=== PATIENT | male | born 1945 | race Caucasian/White ===

== ENCOUNTER 2023-09-05 08:41 | Outpatient (OUT) | payer MEDICARE, SELFPAY ==
[2023-09-05 09:12] LABS: Basophils Absolute Auto 0.1 10^3/uL (0.0-0.1); Basophils Percent Auto 0.7 % (0.2-2.0); Eosinophils Absolute Auto 0.2 10^3/uL (0.0-0.7); Eosinophils Percent Auto 2.2 % (0.9-7.0); Hematocrit 39.7 % (42.0-54.0); Hemoglobin 13.1 g/dL (14.0-18.0); Immature Granulocytes Abs Auto 0.01 10^3/uL (0.00-0.03); Immature Granulocytes Pct Auto 0.1 % (0.0-0.5); Lymphocytes Absolute Auto 2.5 10^3/uL (1.2-3.8); Mean Corpuscular Hemoglobin 31.6 pg (25.9-34.0); Mean Corpuscular Volume 95.9 fL (80.0-94.0); Monocytes Absolute Auto 0.6 10^3/uL (0.3-0.8); Monocytes Percent Auto 8.2 % (1.7-12.0); Neutrophils Absolute Auto 3.7 10^3/uL (1.4-6.5); Neutrophils Percent Auto 52.8 % (43.0-75.0); Platelet Count 177 10^3/uL (150-450); Red Blood Count 4.14 10^6/uL (4.70-6.10); Red Cell Distribution Width 13.3 % (11.0-15.0); White Blood Count 6.9 10^3/uL (4.0-11.0)
[2023-09-05 09:45] LABS: Percent Iron Saturation 24.2 %
[2023-09-05 09:47] LABS: Alanine Aminotransferase 22 U/L (16-63); Albumin Globulin Ratio 1.2; Albumin Level 3.5 g/dL (3.4-5.0); Alkaline Phosphatase 71 U/L (46-116); Anion Gap 11.4; Aspartate Amino Transferase 16 U/L (15-37); BUN Creatinine Ratio 13.5; Bilirubin Direct 0.1 mg/dL (0.0-0.2); Bilirubin Total 0.7 mg/dL (0.2-1.0); Calcium 8.8 mg/dL (8.5-10.1); Carbon Dioxide 29.2 mmol/L (21.0-32.0); Chloride 106 mmol/L (98-107); Chol HDL Ratio 2.3; Cholesterol 114 mg/dL (<=200); Estimated GFR (African America 47 (>=60); Estimated GFR (Non-African Ame 39 (>=60); Glucose 95 mg/dL (74-106); HDL Cholesterol 49 mg/dL (40-60); Potassium 3.6 mmol/L (3.5-5.1); Sodium 143 mmol/L (136-145); Total Protein 6.5 g/dL (6.4-8.2); Triglycerides 85 mg/dL (<=150)
[2023-09-05 11:47] LABS: Estimated Average Glucose 137 mg/dL; Glycohemoglobin A1C 6.4 % (4.5-6.2)
[2024-01-01 14:15] LABS: Reticulocyte Count 1.69 % (0.60-3.10)
== END 2023-09-05 08:42 | disposition home or self-care (01) ==
LOC: LAB 08:45
PROVIDERS: PCP Family Medicine; Visit Provider Family Medicine
DX: Z79.899 Other long term (current) drug therapy (principal); E78.2 Mixed hyperlipidemia; E11.9 Type 2 diabetes mellitus without complications; D53.9 Nutritional anemia, unspecified
CPT/HCPCS: 36415; 80048; 80061; 80076; 82728; 83036; 83540; 83550; 85025; 85045

== ENCOUNTER 2024-02-29 09:17 | Outpatient (OUT) | payer MEDICARE, SELFPAY ==
[2024-02-29 09:52] LABS: Basophils Percent Auto 0.2 % (0.2-2.0); Eosinophils Absolute Auto 0.1 10^3/uL (0.0-0.7); Eosinophils Percent Auto 1.2 % (0.9-7.0); Hematocrit 40.6 % (42.0-54.0); Immature Granulocytes Abs Auto 0.02 10^3/uL (0.00-0.03); Immature Granulocytes Pct Auto 0.2 % (0.0-0.5); Lymphocytes Absolute Auto 1.7 10^3/uL (1.2-3.8); Lymphocytes Percent Auto 20.1 % (20.5-60.0); Mean Corpuscular Hemoglobin 31.2 pg (25.9-34.0); Mean Corpuscular Volume 97.4 fL (80.0-94.0); Mean Platelet Volume 10.3 fL (9.5-13.5); Monocytes Absolute Auto 0.7 10^3/uL (0.3-0.8); Monocytes Percent Auto 7.8 % (1.7-12.0); Neutrophils Percent Auto 70.5 % (43.0-75.0); Platelet Count 167 10^3/uL (150-450); Red Blood Count 4.17 10^6/uL (4.70-6.10); Red Cell Distribution Width 13.4 % (11.0-15.0); White Blood Count 8.6 10^3/uL (4.0-11.0)
[2024-02-29 10:21] LABS: Estimated Average Glucose 146 mg/dL; Glycohemoglobin A1C 6.7 % (4.5-6.2)
[2024-02-29 10:46] LABS: Alanine Aminotransferase 28 U/L (16-63); Albumin Level 3.1 g/dL (3.4-5.0); Alkaline Phosphatase 87 U/L (46-116); Anion Gap 11.7; Aspartate Amino Transferase 20 U/L (15-37); BUN Creatinine Ratio 12.3; Bilirubin Direct 0.1 mg/dL (0.0-0.2); Bilirubin Total 0.7 mg/dL (0.2-1.0); Calcium 9.2 mg/dL (8.5-10.1); Carbon Dioxide 29.5 mmol/L (21.0-32.0); Chloride 105 mmol/L (98-107); Chol HDL Ratio 2.4; Cholesterol 136 mg/dL (<=200); Estimated GFR (African America 50 (>=60); Estimated GFR (Non-African Ame 41 (>=60); Globulin 3.2 g/dL; Glucose 96 mg/dL (74-106); HDL Cholesterol 57 mg/dL (40-60); Potassium 4.2 mmol/L (3.5-5.1); Sodium 142 mmol/L (136-145); Thyroid Stimulating Hormone 3.785 uIU/mL (0.358-3.740); Total Protein 6.3 g/dL (6.4-8.2); Triglycerides 120 mg/dL (<=150)
== END 2024-02-29 09:18 | disposition home or self-care (01) ==
LOC: LAB 09:18
PROVIDERS: PCP Family Medicine; Visit Provider Family Medicine
DX: R68.89 Other general symptoms and signs (principal); F51.04 Psychophysiologic insomnia; D50.8 Other iron deficiency anemias; E78.2 Mixed hyperlipidemia; E11.9 Type 2 diabetes mellitus without complications
CPT/HCPCS: 36415; 80048; 80061; 80076; 82607; 82728; 83036; 83540; 84436; 84443; 85025

== ENCOUNTER 2024-03-26 08:01 | Outpatient (OUT) | payer MEDICARE, SELFPAY ==
--- OUTSIDE RECORDS SUMMARY | 2024-03-26 08:17 | XMS_ITS | CCD ---
Author Organization [facility] Care Team Providers Care Ship Steward Name Role Phone Oberer, Hayden L Unavailable Unavailable Unavailable Oberer, Hayden Unavailable Crescencio Mendez Unavailable Jacob Marrero Unavailable [phone] Julita Owen Unavailable Unavailable Oberer, Hayden Joey Primary Care Unavailable MIGUEL A Ortiz Attending Unavailable MIGUEL A Ortiz Referring Unavailable Oberer, Hayden Joey Primary Care Unavailable Rogerio, Dr. Bud Jacobson Attending Unava ilable Rogerio, Dr. Bud Jacobson Referring Unava ilable Oberer, Hayden Joey Primary Care Unavailable Dr. Bud Carlin Attending Unava leanna Carlin, Dr. Bud Jacobson Referring Unava ilable KAREN Jacinto, Dr. ОЛЬГА GUERRERO Attending Un available Oberer, Hayden Joey Primary Care Unavailable KAREN Jacinto, Dr. ОЛЬГА GUERRERO Attending Un available Oberer, Hayden Joey Primary Care Unavailable Mazin Sanford Referring Unavailab le Oberer, Hayden Joey Primary Care Unavailable KAREN Jacinto, Dr. ОЛЬГА GUERRERO Attending Un available Oberer, Hayden Joey Primary Care Unavailable Dr. ОЛЬГА BROWN Jr Attending Un available Dr. Desire Murcia Attending Unavailable KAREN Jacinto, Dr. ОЛЬГА GUERRERO Referring Un available Oberer, Hayden Joey Primary Care Unavailable KAREN Jacinto, Dr. ОЛЬГА GUERRERO Referring Un available Oberer, Hayden Joey Primary Care Unavailable KAREN Jacinto, Dr. ОЛЬГА GUERRERO Attending Un available Oberer, Hayden Joey Primary Care Unavailable Rogerio, Dr. Bud Jacobson Attending Unava ilable Rogerio, Dr. Bud Jacobson Referring Unava ilable Oberer, Hayden Joey Primary Care Unavailable MIGUEL A Ortiz Attending Unavailable Angel, MIGUEL A Vigil Referring Unavailable ObererHayden Primary Care Unavailable Angel, MIGUEL A Vigil Attending Unavailable Ortiz, MIGUEL A Vigil Referring Unavailable Oberer, Dr. Hayden Cook Primary Care Unavailable Ольга Brown Attending Unavailable Oberer, Dr. Hayden Cook Primary Care Unavailable Ольга Brown Attending Unavailable Oberer, Dr. Hayden Cook Primary Care Unavailable Ольга Brown Admitting Unavailable Ольга Brown Attending Unavailable Ольга Brown Referring Unavailable OBERER, DR BLAKE Primary Care Unavailable OBERER, DR BLAKE Admitting Unavailable OBERER, DR BLAKE Attending Unavailable OBERER, DR BLAKE Consulting Unavailable OBERER, DR BLAKE Primary Care Unavailable OBERER, DR BLAKE Admitting Unavailable OBERER, DR BLAKE Attending Unavailable OBERER, DR BLAKE Consulting Unavailable Oberer DOHayden Primary Care Provider BUD CARLIN Referring Unavailable OBERERHAYDEN Primary Care Unavailable BUD CARLIN Referring Unavailable OBERERHAYDEN Primary Care Unavailable BUD CARLIN Attending Unavailable OBERERHAYDEN Primary Care Unavailable BUD CARLIN Referring Unavailable OBERERHAYDEN Primary Care Unavailable Ольга Barros Attending Provider [phone] Allergies Allergy Classification Reported Allergen(s) Allergy Type Date of Onset Reaction(s) Facility (20 sources) amLODIPine Drug Allergy peripheral edema [facility] Other (20 sources) Metoprolol Drug Allergy ED [facility] Other (1 source) No Alert Propensity to adverse reactions to drug 2 [facility] Medications Current Medications Medication Drug Class(es) Dates Sig (Normalized) Sig (Original) allopurinol 300 mg oral tablet (20 sources) Xanthine Oxidase Inhibitor Start: 05-06-2019 End: 01-17-2024 take 300 mg by mouth once daily Allopurinol Active 300 MG PO Daily January 17, 2024 3:05pm aspirin 81 mg oral tablet (20 sources) Platelet Aggregation Inhibitor, Nonsteroidal Anti-inflammatory Drug Start: 06-21-2019 take 81 mg by mouth once daily in the evening Aspirin Active 81 MG PO Daily June 21, 2019 12:00am takes in PM take 1 tablet by mouth once danita y aspirin 81 mg EC tablet Take 1 tablet (81 mg) by mouth once daily. 0 Active Calcium & Magnesium Carbonates (8 sources) Calcium & Magnes ium Carbonates Active carvedilol 12.5 mg oral tablet (20 sources) alpha-Adrenergic Kyle, beta-Adrenergic Kyle Start: End: 4 take 1 tablet by mouth twice daily carvedilol (Coreg) 12.5 mg tablet Indications: Atherosclerosis of coronary artery of [place] heart without angina pectoris, unspecified vessel or lesion type , Ischemic cardiomyopathy Take 1 tablet (12.5 mg) by mouth 2 times a day. 180 tablet 3 10/12/2023 10/11/2024 Active Start: 07-09-2021 take 0.5 tablet by m outh twice daily Carvedilol 12.5 MG Oral Tablet TAKE 1/2 TABLET TWICE DAILY. Quantity: 30 Refills: 0 Ordered: 22-Dec-2021 Yaritza Huertas Start : 09-Jul-2021 Active Start: 06-25-2019 take 1 tablet by chaitanya twice daily at mealtime Carvedilol (Coreg) 25 mg tablet Active 25 MG PO Twice daily 60 June 25, 2019 12:00am must administer with a meal/food Co Q 10 (20 sources) Co Q 10 Active colchicine 0.6 mg oral tablet (11 sources) Start: 10-25-2021 take 1 tablet by mouth once daily as needed colchicine 0.6 mg tablet Take 1 tablet (0.6 mg) by mouth once daily. As needed for gout flare 0 10/25/2021 Active Start: 10-25-2021 Colchicine 0.6 MG Oral Tablet Quantity: 3 Refills: 0 Ordered: 25-Oct-2021 DO Start : 25-Oct-2021 Active Start: 10-25-2021 Colcrys 0.6 MG 2 tablets initially and 1 tablet in 1 hour Orally for 30 day(s) Oct, Active ferrous sulfate 325 mg oral tablet (16 sources) Start: 01-26-2024 take 325 mg by mouth once daily Ferrous Sulfate Active 325 MG PO Daily 90 90 January 26, 2024 12:00am Start: 03-14-2023 take 1 tablet by chaitanya th once daily at mealtime Ferrous Sulfate 325 (65 Fe) MG 1 tablet Orally Daily with food for 90 days March, Active Start: 03-14-2023 take 1 tablet by chaitanya th once daily at mealtime Ferrous Sulfate 325 (65 Fe) MG 1 tablet Orally Daily with food for 90 days March, Active 24 hr isosorbide mononitrate 30 mg extended release oral tablet (20 sources) Nitrate Vasodilator Start: 06-25-2019 End: 10-11-2024 take 30 mg by mouth once daily Isosorbide Mononitrate Active 30 MG PO Daily June 25, 2019 12:00am Isosorbide [place] itrate Active 200 actuat levalbuterol 0.045 mg/actuat metered dose inhaler (20 sources) beta2-Adrenergic Agonist Start: 09-20-2021 take 1-2 puff(s) by inhalation every six hours levalbuterol (Xopenex) 45 mcg/actuation inhaler Inhale 1-2 puffs every 6 hours if needed. 0 09/20/2021 Active Start: 09-20-2021 Levalbuterol T artrate 45 MCG/ACT Inhalation Aerosol As directed. Quantity: 0 Refills: 0 Ordered: 20-Sep-2021 DO Start : 20-Sep-2021 Active Start: 06-25-2019 take 1 puff(s) by in halation every four to six hours Levalbuterol Tartrate (Xopenex Hfa) 45 mcg/actuation Hfa Aerosol Inhaler Active 1 PUFF INHALATION EVERY 4-6 HOURS June 25, 2019 12:00am take 1 puff(s) by in halation every four hours as needed Xopenex HFA 45 MCG/ACT 1 puff as needed Inhalation every 4 hrs for 30 days PRN Active loperamide hydrochloride 2 mg oral capsule (20 sources) Opioid Agonist Start: 09-22-2021 take 1 capsule by mouth once daily loperamide (Imodium) 2 mg capsule Take 1 capsule (2 mg) by mouth once daily. 0 09/22/2021 Active Start: 09-20-2021 take 1 tablet by chaitanya th once daily Loperamide A-D 2 MG 1 tab(s) Orally qd for 90 day(s) Sep, Not-Taking nitroglycerin 0.4 mg sublingual tablet (20 sources) Nitrate Vasodilator Start: 06-25-2019 Nitroglyce rin (Nitrostat) 0.4 mg Tablet, Sublingual Active 0.4 MG SUBLINGUAL every 5 to 15 minutes June 25, 2019 12:00am Nitrostat 0.4 MG 1 tab as directed Sublingual prn chest pain for 90 days Active pravastatin sodium 80 mg oral tablet (20 sources) HMG-CoA Reductase Inhibitor Start: 05-06-2019 take 80 mg by mouth once daily Pravastatin Active 80 MG PO Daily May 06, 2019 12:00am sacubitril 49 mg / valsartan 51 mg oral tablet (20 sources) Angiotensin 2 Receptor Kyle Start: 03-15-2024 take 1 tablet by mouth twice daily Sacubitril-Valsart an (Entresto) 49-51 mg tablet Active 1 TAB PO Twice daily March 15, 2024 12:00am Start: 12-08-2021 End: 12-20-2023 take 1 tablet by mouth twice daily sacubitriL-valsartan (Entresto) 49-51 mg tablet Indications: Ischemic cardiomyopathy , CHF (NYHA class II, ACC/AHA stage C) ([facility]) Take 1 tablet by mouth 2 times a day. 180 tablet 3 10/12/2023 12/20/2023 Discontinued (Dose adjustment) Start: 04-07-2020 End: 12-19-2024 take 1 tablet by mouth twice daily Sacubitril-Valsartan Discontinued 1 TAB PO Twice daily April 07, 2020 12:00am March 15, 2024 1:39pm ubidecarenone 10 mg oral cap elizabeth (2 sources) Start: 04-07-2020 Coenzyme Q10 ( Co Q-10) 10 mg Capsule Active 10 MG PO Once April 07, 2020 12:00am Completed/Discontinued Medications Medication Drug Class(es) Dates Sig (Normalized) Sig (Original) azithromycin 500 mg oral tablet (1 source) Macrolide Antimicrobial Start: 02-13-2024 End: 03-15-2024 take 1 mg by mouth once daily Azithromycin (Zithromax Tri-Jacinto) 500 mg tablet Discontinued 0 PO daily February 13, 2024 12:00am March 15, 2024 1:35pm For 500 mg dose pack: take 500 mg once daily for 3 days orally daily; clopidogrel 75 mg oral tablet (2 sources) [id number] Platelet Inhibitor Start: 05-06-2019 End: 02-13-2024 take 75 mg by mouth once daily Clopidogrel Discontinued 75 MG PO Daily May 06, 2019 12:00am February 13, 2024 2:14pm fluticasone propionate 0.05 mg/actuat metered dose nasal spray (20 sources) Corticosteroid Start: 03-15-2022 Fluticasone Propionate 50 MCG/ACT Nasal Suspension Quantity: 16 Refills: 0 Ordered: 15-Mar-2022 DO Start : 15-Mar-2022 Active take 2 spray(s) nasal route once daily fluticasone (Flonase) 50 mcg/actuation nasal spray Administer 2 sprays into each nostril once daily. 0 Active take 2 spray(s) nasal route twic e daily Fluticasone Propionate 50 MCG/ACT INHALE 2 (TWO) sprays IN EACH NOSTRIL Nasal Twice a day Active take 2 spray(s) nasal route twic e daily Fluticasone Propionate 50 MCG/ACT INHALE 2 (TWO) sprays IN EACH NOSTRIL Nasal Twice a day Active Fluticasone Prop ionate 50 MCG/ACT INHALE 2 (TWO) sprays IN EACH NOSTRIL ONCE DAILY Nasal Twice a day for 30 Days Active methylPREDNISolone (16 sources) Corticosteroid Start: 07-29-2019 SOLU-MEDROL UP TO 40 mg Jul, 80 mg predniSONE 20 mg oral tablet (1 source) Start: 02-13-2024 End: 03-15-2024 Prednisone Discontinued 0 PO daily February 13, 2024 12:00am March 15, 2024 1:36pm 1 p.o. 3 times daily x 3 days, then twice daily until gone spironolactone 25 mg oral tablet (2 sources) Aldosterone Antagonist Start: 04-07-2020 End: 02-13-2024 take 12.5 mg by mouth once daily Spironolactone Discontinued 12.5 MG PO Daily April 07, 2020 12:00am February 13, 2024 2:17pm sulfamethoxazole 800 mg / trimethoprim 160 mg oral tablet (3 sources) Dihydrofolate Reductase Inhibitor Antibacterial, Sulfonamide Antimicrobial Start: 07-12-2022 End: 07-19-2022 take 1 tablet by mouth twice daily Sulfamethoxazole-T rimethoprim 800-160 MG Oral Tablet Take 1 tablet twice daily Quantity: 14 Refills: 0 Ordered: 12-Jul-2022 Ольга Brown MD Start : 12-Jul-2022 End : 19-Jul-2022 Complete [id number] RBCs (Ultratag) injection 25 millicurie (2 sources) Start: 01-09-2024 End: 01-09-2024 [id number] RBCs (Ultratag) injection 25 millicurie valsartan 160 mg oral tablet (4 sources) Angiotensin 2 Receptor Kyle Start: 05-06-2019 End: 04-07-2020 take 160 mg by mouth once daily in the evening Valsartan Discontinued 160 MG PO Every evening June 21, 2019 12:00am April 07, 2020 3:30pm 24 hr verapamil hydrochloride 240 mg extended release oral capsule (4 sources) Calcium Channel Kyle Start: 05-06-2019 End: 06-25-2019 Verapamil Discontinued June 21, 2019 12:00am June 21, 2019 9:43am Problems Active Problems Problem Classification Problem Date Documented Da te Episodic/Chronic Abdominal hernia (20 sources) Hernia of anterior abdominal wall; Translations: [Ventral hernia without obstruction or gangrene] Onset: 2 Resolved: 2 Episodic Abdominal pain (13 sources) Abdominal pain; Translations: [Unspecified abdominal pain] Episodic Acquired foot deformities (13 sources) Talipes planus; Translations: [Flat foot [pes planus] (acquired), right foot] Episodic Acquired foot deformities (13 sources) Acquired pes planus of left foot; Translations: [Flat foot [pes planus] (acquired), left foot] Episodic Acute bronchitis (1 source) Acute bronchitis, unspecified; Translations: [Acute bronchitis] 02-13-2024 Episodic Administrative/social admission (2 sources) Other specified counseling Onset: 1 Resolved: 1 Episodic Asthma (20 sources) Asthma; Translations: [Unspecified asthma, uncomplicated] Onset: 1 Resolved: 2 Chronic Cardiac dysrhythmias (13 sources) Cardiac arrhythmia; Translations: [Cardiac arrhythmia, unspecified] Chronic Cardiac dysrhythmias (20 sources) Bradycardia; Translations: [Other specified cardiac dysrhythmias] Onset: 2 12-20-2023 Episodic Chronic obstructive pulmonary disease and bronchiectasis (20 sources) Chronic obstructive lung disease; Translations: [Chronic airway obstruction, not elsewhere classified] Onset: 2 10-11-2023 Chronic Conduction disorders (1 source) Atrioventricular block, first degree; Translations: [Atrioventricular block, first degree] Onset: 2 Chronic Congestive heart failure; nonhypertensive (20 sources) Congestive heart failure stage C; Translations: [Congestive heart failure, unspecified] Onset: 2 12-20-2023 Chronic Coronary atherosclerosis and other heart disease (20 sources) Coronary atherosclerosis; Translations: [Coronary atherosclerosis of [place] coronary artery] Onset: 1 Resolved: 2 Chronic Coronary atherosclerosis and other heart disease (5 sources) Presence of aortocoronary bypass graft; Translations: [Coronary angioplasty status] Onset: 2 Episodic Deficiency and other anemia (4 sources) Nutritional anemia, unspecified; Translations: [NUTRITIONAL ANEMIA UNSPECIFIED] Onset: 2 Resolved: 2 Episodic Deficiency and other anemia (16 sources) Macrocytic anemia; Translations: [Nutritional anemia, unspecified] 01-17-2024 Episodic Diabetes mellitus without complication (19 sources) Type 2 diabetes mellitus without complication; Translations: [Type 2 diabetes mellitus without complications] Onset: 3 Chronic Diabetes mellitus without complication (20 sources) Impaired fasting glycemia; Translations: [Impaired fasting glucose] Onset: 1 Resolved: 2 Episodic Disorders of lipid metabolism (20 sources) Hyperlipidemia; Translations: [Other and unspecified hyperlipidemia] Onset: 1 Resolved: 2 Chronic Esophageal disorders (20 sources) Acid reflux; Translations: [Gastro-esophageal reflux disease without esophagitis] Onset: 1 Resolved: 2 Chronic Essential hypertension (20 sources) Essential hypertension; Translations: [Unspecified essential hypertension] Onset: 1 Resolved: 2 Chronic Gout and other crystal arthropathies (20 sources) Gout; Translations: [Gout, unspecified] Onset: 1 Resolved: 2 Chronic Hypertension with complications and secondary hypertension (1 source) Hypertensive heart disease with heart failure; Translations: [Hypertensive heart disease with heart failure] Onset: 2 Chronic Melanomas of skin (20 sources) Malignant melanoma of back; Translations: [Malignant melanoma of skin of trunk, except scrotum] Onset: 2 Chronic Miscellaneous mental health disorders (1 source) Psychophysiologic insomnia; Translations: [Insomnia, unspecified] 02-13-2024 Chronic Noninfectious gastroenteritis (2 sources) Microscopic colitis; Translations: [Microscopic colitis, unspecified] 01-17-2024 Chronic Noninfectious gastroenteritis (20 sources) Microscopic colitis; Translations: [Other specified noninfective gastroenteritis and colitis] Onset: 1 Resolved: 1 Episodic Nutritional deficiencies (6 sources) Iron deficiency; Translations: [Iron deficiency anemia, unspecified] Episodic Osteoarthritis (20 sources) Osteoarthritis of hip; Translations: [Osteoarthritis of hip, unspecified] Onset: 1 Resolved: 2 Chronic Other aftercare (20 sources) Long-term current use of drug therapy; Translations: [Other correction (current) drug therapy] Episodic Other aftercare (6 sources) Other correction (current) drug therapy; Translations: [Other correction (current) drug therapy] Onset: 1 Resolved: 2 Episodic Other aftercare (2 sources) Patient encounter status; Translations: [Other correction (current) drug therapy] 01-17-2024 Episodic Other and unspecified benign neoplasm (20 sources) History of polyp of colon; Translations: [Personal history of colonic polyps] Episodic Other and unspecified benign neoplasm (2 sources) Personal history of colonic polyps Episodic Other circulatory disease (2 sources) Peripheral vascular angioplasty status; Translations: [Peripheral vascular angioplasty status] Onset: 3 Episodic Other connective tissue disease (13 sources) Calcaneal spur; Translations: [Calcaneal spur, left foot] Episodic Other diseases of kidney and ureters (20 sources) Renal impairment; Translations: [Unspecified disorder of kidney and ureter] Onset: 3 10-11-2023 Episodic Other diseases of kidney and ureters (20 sources) Renal insufficiency; Translations: [Disorder of kidney and ureter, unspecified] Episodic Other diseases of kidney and ureters (8 sources) Disorder of kidney and ureter, unspecified; Translations: [DISORDER KIDNEY AND URETER UNS] Onset: 1 Resolved: 2 Episodic Other ear and sense organ disorders (20 sources) Presbycusis; Translations: [Presbycusis, bilateral] 01-17-2024 Episodic Other ear and sense organ disorders (3 sources) Presbycusis, bilateral Onset: 2 Resolved: 2 Episodic Other gastrointestinal disorders (13 sources) Dysphagia; Translations: [Dysphagia, unspecified] Episodic Other gastrointestinal disorders (20 sources) Diarrhea; Translations: [Diarrhea, unspecified] Episodic Other gastrointestinal disorders (13 sources) Swollen abdomen; Translations: [Abdominal distension (gaseous)] Episodic Other gastrointestinal disorders (3 sources) Diarrhea, unspecified Onset: 1 Resolved: 1 Episodic Other lower respiratory disease (20 sources) Chronic cough; Translations: [Cough] 01-17-2024 Episodic Other lower respiratory disease (5 sources) Cough Onset: 1 Resolved: 2 Episodic Other nervous system disorders (20 sources) Polyneuropathy; Translations: [Polyneuropathy, unspecified] 01-17-2024 Chronic Other nervous system disorders (13 sources) Carpal tunnel syndrome of right wrist; Translations: [Carpal tunnel syndrome, right upper limb] Chronic Other nervous system disorders (3 sources) Polyneuropathy, unspecified; Translations: [Unspecified hereditary and idiopathic peripheral neuropathy] Chronic Other nutritional; endocrine; and metabolic disorders (1 source) Obesity, unspecified; Translations: [Obesity, unspecified] Onset: 2 Chronic Other nutritional; endocrine; and metabolic disorders (1 source) Body mass index (BMI) 34.0-34.9, adult; Translations: [Body mass index [BMI] 34.0-34.9, adult] Onset: 2 Chronic Other nutritional; endocrine; and metabolic disorders (14 sources) Overweight in adulthood with body mass index of 25 or more but less than 30; Translations: [Overweight] Episodic Other upper respiratory disease (20 sources) Allergic rhinitis; Translations: [Allergic rhinitis, unspecified] 01-17-2024 Chronic Other upper respiratory disease (5 sources) Allergic rhinitis, unspecified Onset: 2 Resolved: 2 Chronic Other upper respiratory infections (1 source) Chronic sinusitis, unspecified; Translations: [Unspecified sinusitis (chronic)] 02-13-2024 Chronic Peripheral and visceral atherosclerosis (19 sources) Intermittent claudication; Translations: [Peripheral vascular disease, unspecified] Onset: 3 10-11-2023 Chronic Residual codes; unclassified (1 source) No current problems or disability; Translations: [Other specified conditions influencing health status] Onset: 2 Episodic Residual codes; unclassified (1 source) Other general symptoms and signs; Translations: [Other general symptoms] 02-13-2024 Episodic Screening and history of mental health and substance abuse codes (20 sources) Ex-smoker; Translations: [Personal history of tobacco use] Onset: 2 12-20-2023 Episodic Comment on above: QUIT IN THE S; Unclassified (1 source) Personal history of COVID-19; Translations: [Personal history of COVID-19] Onset: 2 Unclassified (1 source) Contact with and (suspected) exposure to COVID-19; Translations: [Contact with and (suspected) exposure to COVID-19] Onset: 2 Past or Other Problems Problem Classification Problem Date Documented Date Episodic/Chronic Conditions associated with dizziness or vertigo (19 sources) Dizziness; Translations: [Dizziness and giddiness] Onset: 10-11-2023 10-11-2023 Episodic Genitourinary symptoms and ill-defined conditions (1 source) Unspecified symptoms and signs involving the genitourinary system Onset: 09-13-2021 Resolved: 09-13-2021 Episodic Melanomas of skin (1 source) Personal history of malignant melanoma of skin; Translations: [Personal history of malignant melanoma of skin] Onset: 07-05-2022 Episodic Other aftercare (1 source) Encounter for surgical aftercare following surgery on the skin and subcutaneous tissue; Translations: [Encntr for surgical aftcr fol surgery on the skin, subcu] Onset: 08-16-2022 Episodic Other aftercare (1 source) technician terminal and repeater (current) use of aspirin; Translations: [technician terminal and repeater (current) use of aspirin] Onset: 07-07-2022 Episodic Other aftercare (1 source) senior care (current) use of antithrombotics/antip latelets; Translations: [senior care (current) use of antithrombotics/antip latelets] Onset: 07-07-2022 Episodic Other and unspecified benign neoplasm (7 sources) Dysplastic nevus of trunk; Translations: [Benign neoplasm of skin of trunk, except scrotum] Onset: 10-11-2023 10-11-2023 Episodic Other and unspecified benign neoplasm (2 sources) Other benign neoplasm of skin of trunk; Translations: [Other benign neoplasm of skin of trunk] Onset: 07-07-2022 Episodic Other circulatory disease (20 sources) Patient post angioplasty; Translations: [Other postprocedural status] Onset: 10-11-2023 12-20-2023 Episodic Other infections; including parasitic (19 sources) Personal history of other infectious and parasitic diseases; Translations: [Personal history of COVID-19] Onset: 10-11-2023 10-11-2023 Episodic Skin and subcutaneous tissue infections (11 sources) Cellulitis; Translations: [Cellulitis and abscess of unspecified sites] Onset: 10-11-2023 10-11-2023 Episodic Unclassified (5 sources) Onset: 12-20-2023 12-20-2023 Results Test Name Value Interpretation Reference Range Facility Basophils Auto (Bld) [#/Vol] on 02-29-2024 Basophils (Bld) [#/Vol] 0.0 10 3/uL 0.0-0.[address] [facility] Basophils/100 WBC Auto (Bld) on 02-29-2024 Basophils/100 WBC (Bld) 0.2 % 0.2-2.[address] [facility] Cholesterol in LDL Calc [Mas s/Vol]on 02-29-2024 Cholesterol in LDL [Mass/Vol] 55.0 mg/dL [facility] Comment on above: <100 mg/dl [id number] 0-129 mg/dl NEAR OR ABOVE [id number] mg/dl BORDERLINE [id number] mg/dl HIGH>190 mg/dl VERY HIGH Cholesterol in VLDL Calc [Ma ss/Vol]on 02-29-2024 Cholesterol in VLDL [Mass/Vol] 24.0 mg/dL [facility] Eosinophils/100 WBC Auto (Bl d)on 02-29-2024 Eosinophils/100 WBC (Bld) 1.2 % 0.9-7.[address] [facility] Erythrocyte distribution wid th Auto (RBC) [Ratio]on 02-29-2024 Erythrocyte distribution width (RBC) [Ratio] 13.4 % 11.0-15.[address] [facility] Estimated glomerular filtrat ion rate (GFR) non- Americanon 02-29-2024 GFR/1.73 sq M.predicted among non-blacks MDRD (S/P/Bld) [Vol rate/Area] 41 mL/min/{1.73_m2} >=[address] [facility] Globulin Calc (S) [Mass/Vol] on 02-29-2024 Globulin (S) [Mass/Vol] 3.2 g/dL [facility] Glucose mean value [Mass/vol ume] in Blood Estimated from glycated hemoglobinon 02-29-2024 Average glucose Estimated from glycated hemoglobin (Bld) [Mass/Vol] 146 mg/dL [facility] Hematocrit Auto (Bld) [Volum e fraction]on 02-29-2024 Hematocrit (Bld) [Volume fraction] 40.6 % 42.0-54.[address] [facility] Hemoglobin [Mass/volume] in Bloodon 02-29-2024 Hemoglobin (Bld) [Mass/Vol] 13.0 g/dL 14.0-18.[address] [facility] Laboratory - Chemistry and C hemistry - challengeon 02-29-2024 Albumin [Mass/Vol] 3.1 g/dL 3.4-5.0 [facility] ALP [Catalytic activity/Vol] 87 U/L 46-[address] [facility] ALT [Catalytic activity/Vol] 28 U/L 16-[address] [facility] AST [Catalytic activity/Vol] 20 U/L 15-[address] [facility] Bilirubin [Mass/Vol] 0.7 mg/dL 0.2-1.0 [facility] Bilirubin.direct [Mass/Vol] 0.1 mg/dL 0.0-0.[address] [facility] Calcium [Mass/Vol] 9.2 mg/dL 8.5-10.1 [facility] Chloride [Moles/Vol] 105 mmol/L 98-107 [facility] Cholesterol [Mass/Vol] 136 mg/dL <=[address] [facility] Cholesterol in HDL [Mass/Vol] 57 mg/dL 40-[address] [facility] Comment on above: > or =60 mg/dl - LOW CARDIOVASCULAR RISK<40 mg/dl - HIGH CARDIOVASCULAR RISK CO2 [Moles/Vol] 29.5 mmol/L 21.0-32.0 [facility] Cobalamin (Vitamin B12) [Mass/Vol] 394.0 pg/mL 193.0-986.[address] [facility] Creatinine [Mass/Vol] 1.62 mg/dL 0.70-1.30 [facility] Ferritin [Mass/Vol] 205.0 ng/mL 26.0-388.0 [facility] GFR/1.73 sq M.predicted MDRD (S/P/Bld) [Vol rate/Area] 50 mL/min/{1.73_m2} >=[address] [facility] Glucose [Mass/Vol] 96 mg/dL 74-106 [facility] Iron [Mass/Vol] 57.0 ug/dL 65.0-175.[address] [facility] Potassium [Moles/Vol] 4.2 mmol/L 3.5-5.1 [facility] Protein [Mass/Vol] 6.3 g/dL 6.4-8.2 [facility] Sodium [Moles/Vol] 142 mmol/L 136-145 [facility] T4 [Mass/Vol] 7.20 ug/dL 4.50-12.[address] [facility] Triglyceride [Mass/Vol] 120 mg/dL <=[address] [facility] TSH Qn 3.785 m[IU]/L 0.358-3.[address] [facility] Urea nitrogen [Mass/Vol] 20.0 mg/dL 7.0-18.[address] [facility] Urea nitrogen/Creatinine [Mass ratio] 12.3 mg/mg [facility] Laboratory - Hematology and Cell countson 02-29-2024 HbA1c (Bld) [Mass fraction] 6.7 % 4.5-6.[address] [facility] Comment on above: ADA RECOMMENDED LIMI T 4.0 - 6.0ADA THERAPEUTIC TARGET < 7.0ACTION SUGGESTED> 7.0 Immature granulocytes/100 WBC (Bld) 0.2 % 0.0-0.[address] [facility] Leukocytes [#/volume] correc consuelo for nucleated erythrocytes in Blood by Automated counon 02-29-2024 WBC corrected for nucl RBC Auto (Bld) [#/Vol] 8.6 10 3/uL 4.0-11.[address] [facility] Lymphocytes Auto (Bld) [#/Vo l]on 02-29-2024 Lymphocytes (Bld) [#/Vol] 1.7 10 3/uL 1.2-3.[address] [facility] Lymphocytes/100 WBC Auto (Bl d)on 02-29-2024 Lymphocytes/100 WBC (Bld) 20.1 % 20.5-60.[address] [facility] MCH Auto (RBC) [Entitic mass ]on 02-29-2024 MCH (RBC) [Entitic mass] 31.2 pg 25.9-34.[address] [facility] MCHC Auto (RBC) [Mass/Vol]on 02-29-2024 MCHC (RBC) [Mass/Vol] 32.0 g/dL 29.9-35.2 [facility] MCV Auto (RBC) [Entitic vol] on 02-29-2024 MCV (RBC) [Entitic vol] 97.4 fL 80.0-94.[address] [facility] Monocytes Auto (Bld) [#/Vol] on 02-29-2024 Monocytes (Bld) [#/Vol] 0.7 10 3/uL 0.3-0.[address] [facility] Monocytes/100 WBC Auto (Bld) on 02-29-2024 Monocytes/100 WBC (Bld) 7.8 % 1.7-12.[address] [facility] Neutrophils Auto (Bld) [#/Vo l]on 02-29-2024 Neutrophils (Bld) [#/Vol] 6.0 10 3/uL 1.4-6.[address] [facility] Neutrophils/100 WBC Auto (Bl d)on 02-29-2024 Neutrophils/100 WBC (Bld) 70.5 % 43.0-75.[address] [facility] No Panel Informationon 02-28 Eosinophils # (Auto) 0.1 10 3/uL 0.0-0.7 Fir [facility] Immature Granulocyte # (Auto) 0.02 10 3/uL 0.00-0.[address] [facility] Platelet mean volume Auto (B ld) [Entitic vol]on 02-29-2024 Platelet mean volume (Bld) [Entitic vol] 10.3 fL 9.5-13.[address] [facility] Platelets Auto (Bld) [#/Vol] on 02-29-2024 Platelets (Bld) [#/Vol] 167 10 3/uL 150-[address] [facility] RBC Auto (Bld) [#/Vol]on RBC (Bld) [#/Vol] 4.17 10 6/uL 4.70-6.10 [facility] Serum or plasma albumin/glob ulin mass ratioon 02-29-2024 Albumin/Globulin [Mass ratio] 1.0 {ratio} [facility] Serum or plasma anion gap de terminationon 02-29-2024 Anion gap [Moles/Vol] 11.7 mmol/L Fi [facility] Serum or plasma total choles terol/high density lipoprotein (HDL) cholesterol mass sajan 02-29-2024 Cholesterol.total/Cho lesterol in HDL [Mass ratio] 2.4 {ratio} [facility] Comment on above: 3.3 - 4.4 LOW RISK4. 4 - 7.1 AVERAGE RISK7.1 - 11.0 MODERATE RISK>11.0 HIGH RISK NM HEART BLOOD POOL EJECTION FRACTION WALL MOTION (MUGA)on 01-09-2024 NM HEART BLOOD POOL EJECTION FRACTION WALL MOTION (MUGA) Interpreted By: Karen Savage and Swati Winslow STUDY: MUGA Performing facility: [facility], [address] [place] [address], Suite [facility], [place] [address] [facility] Provider: Marlene Carlin DO, [facility] PCP: Dr. eTddy Adams Supervising provider: Karen Savage MD INDICATION: ICM CHF II HISTORY: Gender: M; Age: 78 y/o ; Height: HT 177.8 cm cm; Weight: WT 80.74 kg kg. CAD; High Cholesterol; HTN; Arrhythmias; Quit smoking unknown years ago. Cardiac catheterization on 2018. CABG on 1994. PTCA on 2004. COMPARISON: Previous nuclear testing completed EF=51% at [facility]. ACCESSION NUMBER(S): [id number] ORDERING CLINICIAN: BUD CARLIN TECHNIQUE: The patient received an IV injection of 3 ml of stannous pyrophosphate (PYP) using the in-vivo method of labeling red blood cells. After 25 minutes the patient received another IV injection of 26.3 mCi of Technetium 99m pertechnetate. Planar images of the left ventricle were obtained in the CYMRAES 45, Lt Lateral and anterior projections. FINDINGS: The right ventricle was normal. The left ventricle was normal in size. Regional wall motion was normal. Global resting LVEF was normal- at 67%. IMPRESSION: Normal resting right ventricular function. Normalresting left ventricular function. Left ventricular ejection fraction is 67%. NO PREVIOUS STUDY AVAILABLE FOR COMPARISON Signed by: Karen Savage 01/09/2024 5:34 PM Dictation workstation: [id number] [facility] NM Heart Wall motion and Eje ction fractionon 01-09-2024 Normal resting right ventricular function. Normalresting left ventricular function. Left ventricular ejection fraction is 67%. NO PREVIOUS STUDY AVAILABLE FOR COMPARISON Signed by: Karen Savage 01/09/2024 5:34 PM Dictation workstation: [id number] MMODAL Interpreted By: Karen Savage and Giannuzzi Michael STUDY: MUGA Performing facility: [facility], [address] [place] [address], [address], [address] Provider: Marlene Carlin DO, [facility] PCP: Dr. Teddy Adams Supervising provider: Karen Savage MD INDICATION: ICM CHF II HISTORY: Gender: M; Age: 78 y/o ; Height: HT 177.8 cm cm; Weight: WT 80.74 kg kg. CAD; High Cholesterol; HTN; Arrhythmias; Quit smoking unknown years ago. Cardiac catheterization on 2018. CABG on 1994. PTCA on 2004. COMPARISON: Previous nuclear testing completed [id number] EF=51% at [facility]. ACCESSION NUMBER(S): [id number] ORDERING CLINICIAN: BUD CARLIN TECHNIQUE: The patient received an IV injection of 3 ml of stannous pyrophosphate (PYP) using the in-vivo method of labeling red blood cells. After 25 minutes the patient received another IV injection of 26.3 mCi of Technetium 99m pertechnetate. Planar images of the left ventricle were obtained in the CYMRAES 45, Lt Lateral and anterior projections. FINDINGS: The right ventricle was normal. The left ventricle was normal in size. Regional wall motion was normal. Global resting LVEF was normal- at 67%. MMODAL Karen Savage MD - 01/09/2024 Interpreted By: Karen Savage and Giannuzzi Michael STUDY: MUGA Performing facility: [facility], [address] [place] [address], [address], [address] Provider: Marlene Carlin DO, [facility] PCP: Dr. Teddy Adams Supervising provider: Karen Savage MD INDICATION: ICM CHF II HISTORY: Gender: M; Age: 78 y/o ; Height: HT 177.8 cm cm; Weight: WT 80.74 kg kg. CAD; High Cholesterol; HTN; Arrhythmias; Quit smoking unknown years ago. Cardiac catheterization on 2018. CABG on 1994. PTCA on 2004. COMPARISON: Previous nuclear testing completed EF=51% at [facility]. ACCESSION NUMBER(S): [id number] ORDERING CLINICIAN: BUD CARLIN TECHNIQUE: The patient received an IV injection of 3 ml of stannous pyrophosphate (PYP) using the in-vivo method of labeling red blood cells. After 25 minutes the patient received another IV injection of 26.3 mCi of Technetium 99m pertechnetate. Planar images of the left ventricle were obtained in the CYMRAES 45, Lt Lateral and anterior projections. FINDINGS: The right ventricle was normal. The left ventricle was normal in size. Regional wall motion was normal. Global resting LVEF was normal- at 67%. IMPRESSION: Normal resting right ventricular function. Normalresting left ventricular function. Left ventricular ejection fraction is 67%. NO PREVIOUS STUDY AVAILABLE FOR COMPARISON Signed by: Karen Savage 01/09/2024 5:34 PM Dictation workstation: [id number] [facility] Work Phone: Radiology Study observation (narrative) [facility] Work Phone: NM Heart Wall motion and Eje ction fractionOrdered By: Karen Savage on 01-09-2024 [facility] Work Phone: CBC AUTO DIFFon 03-10-2023 BASO # 0.0 103/ul Normal 0.0-0.[address] [facility] Comment on above: Performed By: #### F OL, IRON #### [facility] [address] [place] [address] Dr. Lashell Caballero Basophils/100 WBC (Bld) 0.6 % Normal 0.2-2.[address] [facility] Comment on above: Performed By: #### F OL, IRON #### [facility] [address] [place] [address] Dr. Lashell Caballero EO # 0.1 103/ul Normal 0.0-0.[address] [facility] Comment on above: Performed By: #### F OL, IRON #### [facility] [address] [place] [address] Dr. Lashell Caballero Eosinophils/100 WBC (Bld) 2.2 % Normal 0.9-7.[address] [facility] Comment on above: Performed By: #### F OL, IRON #### [facility] [address] [place] [address] Dr. Lashell Caballero Erythrocyte distribution width (RBC) [Ratio] 13.6 % Normal 11.0-15.[address] [facility] Comment on above: Performed By: #### F OL, IRON #### [facility] [address] [place] [address] Dr. Lashell Caballero Hematocrit (Bld) [Volume fraction] 42.2 % Normal 42.0-54.[address] [facility] Comment on above: Performed By: #### F OL, IRON #### [facility] [address] [address] [address] Lashell Caballero Hemoglobin (Bld) [Mass/Vol] 13.7 g/dL Critically low 14.0-18.0 [facility] Comment on above: Performed By: #### F OL, IRON #### [facility] [address] [place] [address] Dr. Lashell Caballero IG # 0.02 10e3/ul Normal 0.00-0.03 [facility] Comment on above: Performed By: #### F OL, IRON #### [facility] [address] [place] [address] Dr. Lashell Caballero IG % 0.3 % Normal 0.0-0.5 [facility] Comment on above: Performed By: #### F OL, IRON #### [facility] [address] [place] [address] Dr. Lashell Caballero LYMPH # 1.7 103/ul Normal 1.2-3.8 [facility] Comment on above: Performed By: #### F OL, IRON #### [facility] [address] [place] [address] Dr. Lashell Caballero Lymphocytes/100 WBC (Bld) 27.5 % Normal 20.5-60.0 [facility] Comment on above: Performed By: #### F OL, IRON #### [facility] [address] [place] [address] Dr. Lashell Caballero MANUAL DIFF REQ NO Normal [facility] Comment on above: Performed By: #### F OL, IRON #### [facility] [address] [place] [address] Dr. Lashell Caballero MCH (RBC) [Entitic mass] 30.9 pg Normal 25.9-34.0 [facility] Comment on above: Performed By: #### F OL, IRON #### [facility] [address] [place] [address] Dr. Lashell Caballero MCHC (RBC) [Mass/Vol] 32.5 g/dL Normal 29.9-35.2 [facility] Comment on above: Performed By: #### F OL, IRON #### [facility] [address] [address] [address] Lashell Caballero MCV (RBC) [Entitic vol] 95.0 fL Critically high 80.0-94.0 [facility] Comment on above: Performed By: #### F OL, IRON #### [facility] [address] [place] [address] Dr. Lashell Caballero MONO # 0.5 103/ul Normal 0.3-0.8 [facility] Comment on above: Performed By: #### F OL, IRON #### [facility] [address] [place] [address] Dr. Lashell Caballero Monocytes/100 WBC (Bld) 7.4 % Normal 1.7-12.0 [facility] Comment on above: Performed By: #### F OL, IRON #### [facility] [address] [place] [address] Dr. Lashell Caballero NEUT # 3.9 103/ul Normal 1.4-6.[address] [facility] Comment on above: Performed By: #### F OL, IRON #### [facility] [address] [place] [address] Dr. Lashell Caballero Neutrophils/100 WBC (Bld) 62.0 % Normal 43.0-75.0 [facility] Comment on above: Performed By: #### F OL, IRON #### [facility] [address] [place] [address] Dr. Lashell Caballero Platelet mean volume (Bld) [Entitic vol] 10.3 fL Normal 9.5-13.5 [facility] Comment on above: Performed By: #### F OL, IRON #### [facility] [address] [place] [address] Dr. Lashell Caballero PLT 195 103/ul Normal 150-450 [facility] Comment on above: Performed By: #### F OL, IRON #### [facility] [address] [place] [address] Dr. Lashell Caballero RBC 4.44 106/ul Critically low 4.70-6.10 [facility] Comment on above: Performed By: #### F OL, IRON #### [facility] [address] [address] [address] Lashell Caballero WBC 6.3 103/ul Normal 4.0-11.[address] [facility] Comment on above: Performed By: #### F OL, IRON #### [facility] [address] [address] [address] Lashell Caballero GLYCOHEMOGLOBIN A1Con 2022 ADA RECOMMENDATION SEE BELOW Normal [facility] Comment on above: Result Comment: ADA RECOMMENDED LIMIT 4.0 - 6.0 ADA THERAPEUTIC TARGET < 7.0 ACTION SUGGESTED > 7.0 Performed By: #### A 1C #### [facility] [address] [address] [address] Lashell Caballero Glucose [Mass/Vol] 137 mg/dL Normal [facility] Comment on above: Performed By: #### A 1C #### [facility] [address] [place] [address] Dr. Lashell Caballero HbA1c (Bld) [Mass fraction] 6.4 % Critically high 4.5-6.[address] [facility] Comment on above: Performed By: #### A 1C #### [facility] [address] [address] [address] Lashell Caballero IRONon 03-10-2023 Iron [Mass/Vol] 61.0 ug/dL Critically low 65.0-175.0 [facility] Comment on above: Performed By: #### F OL, IRON #### [facility] [address] [place] [address] Dr. Lashell Caballero LIPID PROFILEon 03-10-2023 CHOL-HDL RATIO NORM SEE BELOW Normal [facility] Comment on above: Result Comment: 3.3 - 4.4 LOW RISK 4.4 - 7.1 AVERAGE RISK 7.1 - 11.0 MODERATE RISK >11.0 HIGH RISK Performed By: #### L IPID, LIVER, BMP #### [facility] [address] [place] [address] Dr. Lashell Caballero Cholesterol [Mass/Vol] 138 mg/dL Normal <=[address] [facility] Comment on above: Performed By: #### L IPID, LIVER, BMP #### [facility] [address] [address] [address] Lashell Caballero Cholesterol in HDL [Mass/Vol] 50 mg/dL Normal 40-[address] [facility] Comment on above: Performed By: #### L IPID, LIVER, BMP #### [facility] [address] [address] [address] Lashell Caballero Cholesterol in LDL [Mass/Vol] 68.0 mg/dL Normal [facility] Comment on above: Performed By: #### L IPID, LIVER, BMP #### [facility] [address] [address] [address] Lashell Caballero Cholesterol.total/Cho lesterol in HDL [Mass ratio] 2.8 {ratio} Normal [facility] Comment on above: Performed By: #### L IPID, LIVER, BMP #### [facility] [address] [address] [address] Lashell Caballero HDL NORMAL > or = 60 mg/dl - LO W CARDIOVASCULAR RISK <40 mg/dl - HIGH CARDIOVASCULAR RISK Normal [facility] Comment on above: Performed By: #### L IPID, LIVER, BMP #### [facility] [address] [address] [address] Lashell Caballero LDL CALC NORMAL SEE BELOW Normal [facility] Comment on above: Result Comment: <100 mg/dl OPTIMAL 100 - 129 mg/dl NEAR OR ABOVE OPTIMAL 130 - 159 mg/dl BORDERLINE HIGH 160 - 189 mg/dl HIGH >190 mg/dl VERY HIGH Performed By: #### L IPID, LIVER, BMP #### [facility] [address] [address] [address] Lashell Caballero Triglyceride [Mass/Vol] 100 mg/dL Normal <=150 [facility] Comment on above: Performed By: #### L IPID, LIVER, BMP #### [facility] [address] [address] [address] Lashell Caballero VLDL CALC 20.0 mg/dL Normal [facility] Comment on above: Performed By: #### L IPID, LIVER, BMP #### [facility] [address] [address] [address] Lashell Caballero LIVER PROFILEon 03-10-2023 Albumin [Mass/Vol] 3.5 g/dL Normal 3.4-5.0 [facility] Comment on above: Performed By: #### L IPID, LIVER, BMP #### [facility] [address] [address] [address] Lashell Caballero Albumin/Globulin [Mass ratio] 1.1 {ratio} Normal [facility] Comment on above: Performed By: #### L IPID, LIVER, BMP #### [facility] [address] [address] [address] Lashell Caballero ALP [Catalytic activity/Vol] 75 U/L Normal 46-[address] [facility] Comment on above: Performed By: #### L IPID, LIVER, BMP #### [facility] [address] [address] [address] Lashell Caballero ALT [Catalytic activity/Vol] 22 U/L Normal 16-[address] [facility] Comment on above: Performed By: #### L IPID, LIVER, BMP #### [facility] [address] [address] [address] Lashell Caballero AST [Catalytic activity/Vol] 17 U/L Normal 15-[address] [facility] Comment on above: Performed By: #### L IPID, LIVER, BMP #### [facility] [address] [address] [address] Lashell Caballero BILI, CONJUGATED 0.1 mg/dL Normal 0.0-0.2 [facility] Comment on above: Performed By: #### L IPID, LIVER, BMP #### [facility] [address] [address] [address] Lashell Caballero Bilirubin [Mass/Vol] 0.4 mg/dL Normal 0.2-1.[address] [facility] Comment on above: Performed By: #### L IPID, LIVER, BMP #### [facility] [address] [address] [address] Lashell Caballero Globulin (S) [Mass/Vol] 3.3 g/dL Normal [facility] Comment on above: Performed By: #### L IPID, LIVER, BMP #### [facility] [address] [address] [address] Lashell Caballero Protein [Mass/Vol] 6.8 g/dL Normal 6.4-8.2 [facility] Comment on above: Performed By: #### L IPID, LIVER, BMP #### [facility] [address] [address] [address] Lashell Caballero PROF CHEM 8 (BAS METB)on Anion gap [Moles/Vol] 12.2 mmol/L Normal [facility] Comment on above: Performed By: #### L IPID, LIVER, BMP #### [facility] [address] [place] [address] Dr. Lashell Caballero Calcium [Mass/Vol] 9.1 mg/dL Normal 8.5-10.1 [facility] Comment on above: Performed By: #### L IPID, LIVER, BMP #### [facility] [address] [address] [address] Lashell Caballero Chloride [Moles/Vol] 107 mmol/L Normal 98-[address] [facility] Comment on above: Performed By: #### L IPID, LIVER, BMP #### [facility] [address] [address] [address] Lashell Caballero CO2 [Moles/Vol] 28.9 mmol/L Normal 21.0-32.0 [facility] Comment on above: Performed By: #### L IPID, LIVER, BMP #### [facility] [address] [place] [address] Dr. Lashell Caballero Creatinine [Mass/Vol] 1.68 mg/dL Critically high 0.70-1.[address] [facility] Comment on above: Performed By: #### L IPID, LIVER, BMP #### [facility] [address] [place] [address] Dr. Lashell Caballero EGFR-AF DJIBOUTIAN 48 mL/min/1.73m2 Critically low >=[address] [facility] Comment on above: Performed By: #### L IPID, LIVER, BMP #### [facility] [address] [address] [address] Lashell Caballero EGFR-NON AF DJIBOUTIAN 40 mL/min/1.73m2 Critically low >=[address] [facility] Comment on above: Performed By: #### L IPID, LIVER, BMP #### [facility] [address] [address] [address] Lashell Caballero Glucose [Mass/Vol] 114 mg/dL Critically high 74-106 [facility] Comment on above: Performed By: #### L IPID, LIVER, BMP #### [facility] [address] [address] [address] Lashell Caballero Potassium [Moles/Vol] 4.1 mmol/L Normal 3.5-5.[address] [facility] Comment on above: Performed By: #### L IPID, LIVER, BMP #### [facility] [address] [place] [address] Dr. Lashell Caballero Sodium [Moles/Vol] 144 mmol/L Normal 136-145 [facility] Comment on above: Performed By: #### L IPID, LIVER, BMP #### [facility] [address] [address] [address] Lashell Caballero Urea nitrogen [Mass/Vol] 25.0 mg/dL Critically high 7.0-18.[address] [facility] Comment on above: Performed By: #### L IPID, LIVER, BMP #### [facility] [address] [address] [address] Lashell Caballero Urea nitrogen/Creatinine [Mass ratio] 14.9 mg/mg Normal [facility] Comment on above: Performed By: #### L IPID, LIVER, BMP #### [facility] [address] [place] [address] Dr. Lashell Caballero VITAMIN B12on 03-10-2023 Cobalamin (Vitamin B12) [Mass/Vol] 368.0 pg/mL Normal 193.0-986.[address] [facility] Comment on above: Performed By: #### F OL, IRON #### [facility] [address] [place] [address] Dr. Lashell Caballero Office Visit (Cardiology)on 12-14-2022 Follow-up visit Diagnoses/Problems Assessed Atherosclerosis of coronary artery of [place] heart without angina pectoris (414.01) (I25.10) Status post angioplasty (V45.89) (Z98.62) Ischemic cardiomyopathy (414.8) (I25.5) CHF (NYHA class II, ACC/AHA stage C) (428.0) (I50.9) History of coronary artery bypass graft (V45.81) (Z95.1) Hyperlipidemia (272.4) (E78.5) Essential hypertension (401.9) (I10) Former smoker (V15.82) (Z87.891) QUIT IN THE 80'S Overweight with body mass index (BMI) of 26 to 26.9 in adult (278.02,V85.22) (E66.3,Z68.26) 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) Orders Atherosclerosis of coronary artery of [place] heart without angina pectoris Renew: Aspirin EC 81 MG Oral Tablet Delayed Release; TAKE 1 TABLET DAILY Atherosclerosis of coronary artery of [place] heart without angina pectoris, Hyperlipidemia Renew: Pravastatin Sodium 80 MG Oral Tablet; TAKE 1 TABLET DAILY Atherosclerosis of coronary artery of [place] heart without angina pectoris, Status post angioplasty Renew: Nitroglycerin 0.4 MG Sublingual Tablet Sublingual; PLACE 1 TABLET UNDER THE TONGUE EVERY 5 MINUTES UP TO 3 DOSES NEEDED FOR CHEST PAIN CHF (NYHA class II, ACC/AHA stage C) Renew: Isosorbide Mononitrate ER 30 MG Oral Tablet Extended Release 24 Hour; Take 1 tablet daily CHF (NYHA class II, ACC/AHA stage C), Ischemic cardiomyopathy Renew: Entresto 49-51 MG Oral Tablet; Take 1 tablet twice a day Formulary Override Reason: Drug is not indicated for Patient condition Essential hypertension Renew: Carvedilol 12.5 MG Oral Tablet; Take 1 tablet twice a day Overweight with body mass index (BMI) of 26 to 26.9 in adult Healthy Weight Tips; Status:Complete - Retrospective Authorization; Done: 14Dec2022 Some eating tips that can help you lose weight.; Status:Complete - Retrospective Authorization; Done: 14Dec2022 SocHx: Former smoker Tobacco Use Screening; Status:Complete; Done: 14Dec2022 Patient Instructions Please bring all medicines, vitamins, and herbal supplements with you when you come to the office. Prescriptions will not be filled unless you are compliant with your follow up appointments or have a follow up appointment scheduled as per instruction of your physician. Refills should be requested at the time of your visit. Follow up in 1 year. Chief Complaint JUNIOR TORRES is being seen for an annual follow-up of. 77-year-old gentleman returns for follow-up and doing well from a cardiovascular standpoint. We will continue to follow and treat you for ischemic cardiomyopathy, remote three-vessel CABG with known occluded grafts x3 and subsequent PCI of the LAD x2 drug-eluting stents. Last heart catheterization 2018 revealed the above anatomy with known occlusions of the lower elwha RCA and circumflex, patent LAD and stents and patent ramus branch at that time with moderate left ventricular dysfunction, improved on Entresto therapy and guideline directed medical therapies with subsequent MUGA scan revealing ejection fraction of 51% 1 year later and May 2020. Patient underwent work-up, and treatment and surgical intervention for melanoma of the left upper back details of which are reviewed, without complications or cardiovascular events. He has underlying history of [place] Heart Association class II/C heart failure, COPD, essential hypertension, former smoker, hyperlipidemia, the above-mentioned melanoma with excision, PCI LAD, ischemic cardiomyopathy with improved LV function. Recommendations: We will continue current therapies, follow-up with within the next year Current Meds Medication NameInstruction Allopurinol 300 MG Oral TabletTAKE 1 TABLET DAILY. Aspirin EC 81 MG Oral Tablet Delayed ReleaseTAKE 1 TABLET DAILY. Carvedilol 12.5 MG Oral TabletTake 1 tablet twice a day Colchicine 0.6 MG Oral Tablet Entresto 49-51 MG Oral TabletTake 1 tablet twice a day Fluticasone Propionate 50 MCG/ACT Nasal Suspension Isosorbide Mononitrate ER 30 MG Oral Tablet Extended Release 24 HourTake 1 tablet daily Levalbuterol Tartrate 45 MCG/ACT Inhalation AerosolAs directed. Loperamide HCl - 2 MG Oral CapsuleTAKE 1 CAPSULE Daily Nitroglycerin 0.4 MG Sublingual Tablet SublingualPLACE 1 TABLET UNDER THE TONGUE EVERY 5 MINUTES UP TO 3 DOSES NEEDED FOR CHEST PAIN. Pravastatin Sodium 80 MG Oral TabletTAKE 1 TABLET DAILY. Allergies Medication No Known Drug Allergies Recorded By: Sommer Cain; 09/15/2021 9:56:00 AM Social History Problems Caffeine use (V49.89) (Z78.9) COFFEE 2 CUPS DAILY Former smoker (V15.82) (Z87.891) QUIT IN THE 80'S No alcohol use No illicit drug use Review of Systems Constitutional: not feeling tired. Cardiovascular: no intermittent leg claudication and as noted in HPI. Respiratory: no cough and no shortness of breath. Gastrointestinal: no change in bowel habits and no blood in stools. Integumentary: no skin rashes. Neurological: no seizures and no frequent falls. All other systems have (more content not included)... Normal [facility] Tobacco Screening.on 023 Adult depression screening assessment No [facility] [place] [address] DO Work Phone: Fall risk assessment a) No falls within the last year [facility] [place] [address] DO Work Phone: Tobacco use status [facility] b) No [facility] [place] 250 DO Work Phone: Tobacco Screening.on 022 Fall risk assessment a) No falls within the last year [facility] Work Phone: Tobacco use status CP b) No [facility] Work Phone: CBC AUTO DIFFon 09-02-2022 BASO # 0.0 103/ul Normal 0.0-0.[address] [facility] Comment on above: Performed By: #### C BC #### [facility] [address] [place] [address] Dr. Lashell Caballero Basophils/100 WBC (Bld) 0.3 % Normal 0.2-2.[address] [facility] Comment on above: Performed By: #### C BC #### [facility] [address] [address] [address] Lashell Caballero EO # 0.1 103/ul Normal 0.0-0.[address] [facility] Comment on above: Performed By: #### C BC #### [facility] [address] [address] [address] Lsahell Caballero Eosinophils/100 WBC (Bld) 1.4 % Normal 0.9-7.[address] [facility] Comment on above: Performed By: #### C BC #### [facility] [address] [place] [address] Dr. Lashell Caballero Erythrocyte distribution width (RBC) [Ratio] 13.2 % Normal 11.0-15.[address] [facility] Comment on above: Performed By: #### C BC #### [facility] [address] [place] [address] Dr. Lashell Caballero Hematocrit (Bld) [Volume fraction] 42.6 % Normal 42.0-54.[address] [facility] Comment on above: Performed By: #### C BC #### [facility] [address] [place] [address] Dr. Lashell Caballero Hemoglobin (Bld) [Mass/Vol] 13.9 g/dL Critically low 14.0-18.[address] [facility] Comment on above: Performed By: #### C BC #### [facility] [address] [place] [address] Dr. Lashell Caballero IG # 0.01 10e3/ul Normal 0.00-0.[address] [facility] Comment on above: Performed By: #### C BC #### [facility] [address] [place] [address] Dr. Lashell Caballero IG % 0.1 % Normal 0.0-0.[address] [facility] Comment on above: Performed By: #### C BC #### [facility] [address] [place] [address] Dr. Lashell Caballero LYMPH # 2.3 103/ul Normal 1.2-3.[address] [facility] Comment on above: Performed By: #### C BC #### [facility] [address] [place] [address] Dr. Lashell Caballero Lymphocytes/100 WBC (Bld) 33.6 % Normal 20.5-60.[address] [facility] Comment on above: Performed By: #### C BC #### [facility] [address] [place] [address] Dr. Lashell Caballero MANUAL DIFF REQ NO Normal [facility] Comment on above: Performed By: #### C BC #### [facility] [address] [address] [address] Lashell Caballero MCH (RBC) [Entitic mass] 31.2 pg Normal 25.9-34.[address] [facility] Comment on above: Performed By: #### C BC #### [facility] [address] [address] [address] Lashell Caballero MCHC (RBC) [Mass/Vol] 32.6 g/dL Normal 29.9-35.[address] [facility] Comment on above: Performed By: #### C BC #### [facility] [address] [place] [address] Dr. Lashell Caballero MCV (RBC) [Entitic vol] 95.7 fL Critically high 80.0-94.[address] [facility] Comment on above: Performed By: #### C BC #### [facility] [address] [place] [address] Dr. Lashell Caballero MONO # 0.5 103/ul Normal 0.3-0.[address] [facility] Comment on above: Performed By: #### C BC #### [facility] [address] [place] [address] Dr. Lashell Caballero Monocytes/100 WBC (Bld) 7.5 % Normal 1.7-12.[address] [facility] Comment on above: Performed By: #### C BC #### [facility] [address] [place] [address] Dr. Lashell Caballero NEUT # 4.0 103/ul Normal 1.4-6.5 [facility] Comment on above: Performed By: #### C BC #### [facility] [address] [place] [address] Dr. Lashell Caballero Neutrophils/100 WBC (Bld) 57.1 % Normal 43.0-75.0 [facility] Comment on above: Performed By: #### C BC #### [facility] [address] [place] [address] Dr. Lashell Caballero Platelet mean volume (Bld) [Entitic vol] 9.7 fL Normal 9.5-13.5 [facility] Comment on above: Performed By: #### C BC #### [facility] [address] [address] [address] Lashell Caballero PLT 205 103/ul Normal 150-450 [facility] Comment on above: Performed By: #### C BC #### [facility] [address] [address] [address] Lashell Caballero RBC 4.45 106/ul Critically low 4.70-6.10 [facility] Comment on above: Performed By: #### C BC #### [facility] [address] [address] [address] Lashell Caballero WBC 7.0 103/ul Normal 4.0-11.[address] [facility] Comment on above: Performed By: #### C BC #### [facility] [address] [address] [address] Lashell Caballero FOLATEon 09-02-2022 FOLATE 13.90 ng/mL Normal 8.60-58.[address] [facility] Comment on above: Performed By: #### F OL, IRON #### [facility] [address] [address] [address] Lashell Caballero GLYCOHEMOGLOBIN A1Con 2021 ADA RECOMMENDATION SEE BELOW Normal [facility] Comment on above: Result Comment: ADA RECOMMENDED LIMIT 4.0 - 6.0 ADA THERAPEUTIC TARGET < 7.0 ACTION SUGGESTED > 7.0 Performed By: #### A 1C #### [facility] [address] [address] [address] Lashell Caballero Glucose [Mass/Vol] 140 mg/dL Normal [facility] Comment on above: Performed By: #### A 1C #### [facility] [address] [address] [address] Lashell Caballero HbA1c (Bld) [Mass fraction] 6.5 % Critically high 4.5-6.[address] [facility] Comment on above: Performed By: #### A 1C #### [facility] [address] [address] [address] Lashell Caballero IRONon 09-02-2022 Iron [Mass/Vol] 64.0 ug/dL Critically low 65.0-175.0 [facility] Comment on above: Performed By: #### F OL, IRON #### [facility] [address] [address] [address] Lashell Caballero LIPID PROFILEon 09-02-2022 CHOL-HDL RATIO NORM SEE BELOW Normal [facility] Comment on above: Result Comment: 3.3 - 4.4 LOW RISK 4.4 - 7.1 AVERAGE RISK 7.1 - 11.0 MODERATE RISK >11.0 HIGH RISK Performed By: #### B MP, LIPID #### [facility] [address] [address] [address] Lashell Caballero Cholesterol [Mass/Vol] 139 mg/dL Normal <=[address] [facility] Comment on above: Performed By: #### B MP, LIPID #### [facility] [address] [address] [address] Lashell Caballero Cholesterol in HDL [Mass/Vol] 51 mg/dL Normal 40-[address] [facility] Comment on above: Performed By: #### B MP, LIPID #### [facility] [address] [address] [address] Lashell Caballero Cholesterol in LDL [Mass/Vol] 68.2 mg/dL Normal [facility] Comment on above: Performed By: #### B MP, LIPID #### [facility] [address] [address] [address] Lashell Caballero Cholesterol.total/Cho lesterol in HDL [Mass ratio] 2.7 {ratio} Normal [facility] Comment on above: Performed By: #### B MP, LIPID #### [facility] [address] [address] [address] Lashell Caballero HDL NORMAL > or = 60 mg/dl - LO W CARDIOVASCULAR RISK <40 mg/dl - HIGH CARDIOVASCULAR RISK Normal [facility] Comment on above: Performed By: #### B MP, LIPID #### [facility] [address] [address] [address] Lashell Caballero LDL CALC NORMAL SEE BELOW Normal [facility] Comment on above: Result Comment: <100 mg/dl OPTIMAL 100 - 129 mg/dl NEAR OR ABOVE OPTIMAL 130 - 159 mg/dl BORDERLINE HIGH 160 - 189 mg/dl HIGH >190 mg/dl VERY HIGH Performed By: #### B MP, LIPID #### [facility] [address] [place] [address] Dr. Lashell Caballero Triglyceride [Mass/Vol] 99 mg/dL Normal <=[address] [facility] Comment on above: Performed By: #### B MP, LIPID #### [facility] [address] [place] [address] Dr. Lashell Caballero VLDL CALC 19.8 mg/dL Normal [facility] Comment on above: Performed By: #### B MP, LIPID #### [facility] [address] [place] [address] Dr. Lashell Caballero PROF CHEM 8 (BAS METB)on Anion gap [Moles/Vol] 12.3 mmol/L Normal [facility] Comment on above: Performed By: #### B MP, LIPID #### [facility] [address] [place] [address] Dr. Lashell Caballero Calcium [Mass/Vol] 9.2 mg/dL Normal 8.5-10.1 [facility] Comment on above: Performed By: #### B MP, LIPID #### [facility] [address] [place] [address] Dr. Lashell Caballero Chloride [Moles/Vol] 103 mmol/L Normal 98-[address] [facility] Comment on above: Performed By: #### B MP, LIPID #### [facility] [address] [place] [address] Dr. Lashell Caballero CO2 [Moles/Vol] 29.9 mmol/L Normal 21.0-32.0 [facility] Comment on above: Performed By: #### B MP, LIPID #### [facility] [address] [place] [address] Dr. Lashell Caballero Creatinine [Mass/Vol] 1.48 mg/dL Critically high 0.70-1.[address] [facility] Comment on above: Performed By: #### B MP, LIPID #### [facility] [address] [address] [address] Lashell Caballero EGFR-AF DJIBOUTIAN 56 mL/min/1.73m2 Critically low >=[address] [facility] Comment on above: Performed By: #### B MP, LIPID #### [facility] [address] [address] [address] Lashell Caballero EGFR-NON AF DJIBOUTIAN 46 mL/min/1.73m2 Critically low >=[address] [facility] Comment on above: Performed By: #### B MP, LIPID #### [facility] [address] [address] [address] Lashell Caballero Glucose [Mass/Vol] 101 mg/dL Normal 74-106 [facility] Comment on above: Performed By: #### B MP, LIPID #### [facility] [address] [place] [address] Dr. Lashell Caballero Potassium [Moles/Vol] 4.2 mmol/L Normal 3.5-5.[address] [facility] Comment on above: Performed By: #### B MP, LIPID #### [facility] [address] [address] [address] Lashell Caballero Sodium [Moles/Vol] 141 mmol/L Normal 136-145 [facility] Comment on above: Performed By: #### B MP, LIPID #### [facility] [address] [address] [address] Lashell Caballero Urea nitrogen [Mass/Vol] 21.0 mg/dL Critically high 7.0-18.[address] [facility] Comment on above: Performed By: #### B MP, LIPID #### [facility] [address] [place] [address] Dr. Lashell Caballero Urea nitrogen/Creatinine [Mass ratio] 14.2 mg/mg Normal [facility] Comment on above: Performed By: #### B MP, LIPID #### [facility] [address] [place] [address] Dr. Lashell Caballero Dermatopathologyon Dermatopathology Name JUNIOR TORRESSunni Pathologist: LEONOR LÓPEZ MD Date of Procedure: 08/16/2022 Date Received: 08/17/2022 Date Reported 08/19/2022 Submitting Physician: ОЛЬГА BROWN MD Location: [facility] Other External # FINAL DIAGNOSIS SKIN, LEFT UPPER BACK MELANOMA RE EXCISION: DERMAL NEVUS, INKED MARGINS FREE IN PLANES OF SECTIONS EXAMINED AND CHANGES CONSISTENT WITH PREVIOUS PROCEDURE, PRESENT ON THE DEEP AND PERIPHERAL MARGIN. Electronically Signed Out by LEONOR LÓPEZ M.D. Electronically Signed Out By LEONOR LÓPEZ MD/[facility] By the signature on this report, the individual or group listed as making the Final Interpretation/Diagnosis certifies that they have reviewed this case. Diagnostic interpretation performed at [facility] [address] [place] [address] Microscopic Description: Microscopic analysis shows a symmetric, papular proliferation of bland melanocytes in dermis. Dermal melanocytes mature with increasing depth in dermis and show no cytologic atypia. An area with horizontally oriented collagen and vertically oriented vessels is present. A step section was performed. 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 The specimen is inked and embedded in toto in four blocks. mlz/08/18/2022 [facility] [address] [id number] [place] [address] [place] [address] Comment on above: Performed By: #### D #### Dermatopathology No Panel Informationon 08-16 [facility] Work Phone: Tobacco Screening.on 022 Fall risk assessment a) No falls within the last year [facility] [place] Work Phone: Tobacco use status CP b) No [facility] Work Phone: Tobacco Screening.on 022 Fall risk assessment a) No falls within the last year [facility] erst Work Phone: Tobacco use status [facility] b) No [facility] ers Work Phone: Tobacco Screening. [facility] Work Phone: Dermatopathologyon 2 Dermatopathology Name JUNIOR TORRES Pathologist: LEONOR LÓPEZ MD Date of Procedure: 07/07/2022 Date Received: 07/11/2022 Date Reported 07/14/2022 Submitting Physician: ОЛЬГА BROWN MD Location: [facility] External # FINAL DIAGNOSIS A. SKIN, LEFT UPPER BACK, EXCISION: MODERATELY DYSPLASTIC COMPOUND NEVUS, PRESENT ON THE PERIPHERAL MARGIN AND MULTIPLE DERMAL NEVI AND CHANGES CONSISTENT WITH PREVIOUS PROCEDURE, INKED MARGINS FREE IN PLANES OF SECTIONS EXAMINED, SEE NOTE. Note: The dysplastic compound nevus is present in slide A17 on the inked blue margin which corresponds with the mid superior margin. Recurrent nevi can resemble melanoma histologically. A step section was performed. B. NODE, LEFT AXILLARY SENTINEL LYMPH NODE #1 COUNT 1055, EXCISION: BENIGN LYMPH NODE. Electronically Signed Out by LEONOR LÓPEZ M.D. Note One or more of the reagents used to perform assays on this specimen MAY have contained components considered to be analyte specific reagents (ASR's). ASR's have not been cleared or approved by the U.S. Food and Drug Administration. These assays were developed and their performance characteristics determined by the Department of Pathology at [facility]. The FDA does not require this test to go through premarket FDA review. This test is used for clinical purposes. It should not be regarded as investigational or for research. This laboratory is certified under the Clinical Laboratory Improvement Amendments (CLIA) as qualified to perform high complexity clinical laboratory testing. The assays were performed with appropriate positive and negative controls which stained appropriately. Electronically Signed Out By LEONOR LÓPEZ MD/[facility] By the signature on this report, the individual or group listed as making the Final Interpretation/Diagnosis certifies that they have reviewed this case. Diagnostic interpretation performed at [facility] [address] [facility] [address] Microscopic Description: A. Microscopic examination reveals a specimen that extends into the subcutaneous fat. An area with horizontally oriented collagen and vertically oriented vessels is present. There are multiple foci of nested and single benign appearing melanocytes in the dermis. In slide A17 there is a proliferation of nests of melanocytes with moderately enlarged nuclei and mild cytoplasm with bridging of adjacent nests of melanocytes. There are occasional nests of melanocytes in the dermis. B. Microscopic examination reveals a lymph node with normal architecture. No melanoma is seen on H and E staining. Melan-A, SOX-10, and HMB45 stains are unremarkable. All control slides stain appropriately. Clinical History: A: Wide local excision; short stitch superior, long stitch lateral. Melanoma. Excision. B: [place] lymph node #1 count 1055. Melanoma. Specimens Submitted As: A: SKIN, LEFT UPPER BACK B: NODE, LEFT AXILLARY SENTINEL LYMPH NODE #1 COUNT 1055 Gross Description: A: Received in formalin is a park ellipse of skin measuring [id number], oriented by the surgeon with a short stitch on the superior margin (arbitrarily defined as 12 o'clock for the purpose of gross description) and a long stitch on the lateral margin (9 o'clock). The specimen is inked black from 3-9 o'clock and blue from 9-3 o'clock. The skin is serially sectioned from lateral to medial and submitted in toto in 27 blocks. The serial sections from the mid-portion of the ellipse (Blocks 7-22) are additionally bisected. Block 1 is at 3 o'clock. B: Received in formalin is one [id number] irregularly shaped piece of skin measuring [id number]. The specimen is inked and embedded in toto. ink/07/11/2022 [facility] Dermatopathology Laboratory [id number] [place] [address] [place] [address] Comment on above: Performed By: #### D #### Dermatopathology LYMPH GLANDon 07-07-2022 LYMPH GLAND Patient Name: JUNIOR TORRES STUDY: TUMOR LOC SPECT/CT; LYMPH GLAND; 07/07/2022 2:33 pm INDICATION: WLE of Back w/ SLNB on 07/07/2022 C43.59: Malignant melanoma of back. COMPARISON: None. ACCESSION NUMBER(S): [id number]; [id number] ORDERING CLINICIAN: ОЛЬГА BROWN TECHNIQUE: DIVISION OF NUCLEAR MEDICINE RADIONUCLIDE SENTINEL LYMPH NODE LYMPHOSCINTIGRAPHY A total of 1.003 millicuries of Tc-99m tilmanocept (Lymphoseek) was injected intradermally in a circumferential pattern surrounding the patient's left upper shoulder/back melanoma biopsy site. Sequential images were then acquired. FINDINGS: Planar images reveals relatively intense tracer deposition in the region of the injection site with a small focus noted inferolaterally in the left axilla. SPECT CT images reveals a focal area of intense activity representing a sentinel lymph node was identified in the left axilla. Note is made of a second lymph node of lesser intensity slightly anterior. IMPRESSION: Successful sentinel lymph node localization with sentinel lymph node identified in the left axilla. Images were sent to PACS. I personally reviewed the images/study and I agree with the findings as stated. This study was interpreted at [place], [place]. Electronically signed by: HAILEE AGUDELO MD Normal [facility] NM Lymph Glandon 07-07-2022 NM Lymph node Views Normal [facility] Work Phone: NM Tumor Loc Spec/CTon 07-07 NM Tumor Loc Spec/CT Normal [facility] Work Phone: No Panel Informationon 07-07 [facility] Work Phone: Order Reconciliationon 07-07 Order Reconciliation Page 1 Discharge Reconciliation Document Reconciliation Type: Discharge requested on behalf of Lavelle Foley (Resident) done by Lavelle Foley (Resident)) Discharge - Reconciliation: 07-Jul-2022 18:26 by: Lavelle Foley (Resident)) Discharge - Reset to Incomplete: 07-Jul-2022 18:27 by: Lavelle Foley (Resident)) Discharge - Reconciliation: 07-Jul-2022 18:27 by: Lavelle Foley (Resident)) Home Medications EnteredHOME MEDICATIONS AT DISCHARGE DateReconciliation Comment/ Additional Information allopurinol 300 mg oral tablet 1 tab(s) orally once a day 04-Jul-2022 11:11 allopurinol 300 mg oral tablet 1 tab(s) orally once a day 04-Jul-2022 11:11 allopurinol 300 mg oral tablet is continued as allopurinol 300 mg oral tablet aspirin 81 mg oral capsule 1 cap(s) orally once a day 04-Jul-2022 11:12 aspirin 81 mg oral capsule 1 cap(s) orally once a day 04-Jul-2022 11:12 aspirin 81 mg oral capsule is continued as aspirin 81 mg oral capsule carvedilol 12.5 mg oral tablet 1 tab(s) orally 2 times a day 05-Jul-2022 10:14 carvedilol 12.5 mg oral tablet 1 tab(s) orally 2 times a day 05-Jul-2022 10:14 carvedilol 12.5 mg oral tablet is continued as carvedilol 12.5 mg oral tablet CoQ10 100 mg oral capsule 1 cap(s) orally once a day 05-Jul-2022 10:07 CoQ10 100 mg oral capsule 1 cap(s) orally once a day 05-Jul-2022 10:07 CoQ10 100 mg oral capsule is continued as CoQ10 100 mg oral capsule Entresto 49 mg-51 mg oral tablet 1 tab(s) orally 2 times a day 04-Jul-2022 11:12 Entresto 49 mg-51 mg oral tablet 1 tab(s) orally 2 times a day 04-Jul-2022 11:12 Entresto 49 mg-51 mg oral tablet is continued as Entresto 49 mg-51 mg oral tablet isosorbide mononitrate 30 mg oral tablet, extended release 1 tab(s) orally once a day (in the morning) 04-Jul-2022 11:13 isosorbide mononitrate 30 mg oral tablet, extended release 1 tab(s) orally once a day (in the morning) 04-Jul-2022 11:13 isosorbide mononitrate 30 mg oral tablet, extended release is continued as isosorbide mononitrate 30 mg oral tablet, extended release levalbuterol 45 mcg/inh inhalation aerosol 2 puff(s) inhaled every 4 hours, As Needed 04-Jul-2022 11:13 levalbuterol 45 mcg/inh inhalation aerosol 2 puff(s) inhaled every 4 hours, As Needed 04-Jul-2022 11:13 levalbuterol 45 mcg/inh inhalation aerosol is continued as levalbuterol 45 mcg/inh inhalation aerosol loperamide 2 mg oral capsule 1 cap(s) orally once a day 04-Jul-2022 11:13 loperamide 2 mg oral capsule 1 cap(s) orally once a day 04-Jul-2022 11:13 loperamide 2 mg oral capsule is continued as loperamide 2 mg oral capsule nitroglycerin 0.4 mg sublingual tablet 1 tab(s) sublingual every 5 minutes, As Needed 04-Jul-2022 11:13 nitroglycerin 0.4 mg sublingual tablet 1 tab(s) sublingual every 5 minutes, As Needed 04-Jul-2022 11:13 nitroglycerin 0.4 mg sublingual tablet is continued as nitroglycerin 0.4 mg sublingual tablet pravastatin 80 mg oral tablet 1 tab(s) orally once a day 04-Jul-2022 11:14 pravastatin 80 mg oral tablet 1 tab(s) orally once a day 04-Jul-2022 11:14 pravastatin 80 mg oral tablet is continued as pravastatin 80 mg oral tablet Current OrdersDateHOME MEDICATIONS AT DISCHARGE DateReconciliation Comment/ Additional Information Albuterol 2.5 mg/ 3 mL Nebulizer Soln (PROVENTIL)DOSE = 3 mL Inhalation Once via Nebulizer, PRN Wheezing (PACU)Clinician Notes: Lachelle-operative order ONLY 07-Jul-2022 16:41 Albuterol 2.5 mg/ 3 mL Nebulizer Soln is not required fentaNYL Injectable (SUBLIMAZE)DOSE = 25 microgram(s) IntraVenous Push Every 5 Minutes, PRN Pain - Mod (4-6) (PACU) if unable to take oralClinician Notes: Lachelle-operative order ONLYMax total of 200 micrograms regardless of dose. 07-Jul-2022 16:41 fentaNYL Injectable is not required hydrALAZINE (APRESOLINE) Injectable DOSE = 5 mg IntraVenous Push Every 30 Minutes, PRN for SPB>180 and HR<60.Clinician Notes: Lachelle-operative order ONLY 07-Jul-2022 16:41 hydrALAZINE (APRESOLINE) Injectable is not required HYDROmorphone Injectable (DILAUDID)DOSE = 0.5 mg IntraVenous Push Every 5 Minutes, PRN Pain - Severe (7-10) (PACU)Clinician Notes: Lachelle-operative order ONLYMax total of 4 mg regardless of dose. 07-Jul-2022 16:41 HYDROmorphone Injectable is not required Lactated Ringers Infusion IV Bag Volume = 1,000 mL Run at: 100 mL/hr IntraVenous Clinician Notes: Lachelle-operative order ONLY 07-Jul-2022 16:41 Lactated Ringers Infusion is not required Ondansetron Injectable (ZOFRAN)DOSE = 4 mg IntraVenous Push Once, PRN PONV, first lineClinician Notes: Lachelle-operative order ONLY 07-Jul-2022 16:41 Ondansetron Injectable is not required oxyCODONE 5 mg - Acetaminophen 325 mg Tablet (PERCOCET)DOSE = 1 tablet(s) Oral Every 4 Hours, PRN Pain - Mod (4-6) (PACU) when able to take oralClinician Notes: Lachelle-operative order ONLY 07-Jul-2022 16:41 oxyCODONE 5 mg - Acetaminophen 325 mg is not required (more content not included)... Normal [facility] Patient Profile - Preop v3on 07-07-2022 Patient Profile - Preop v3 This report has been cancelled. Normal [facility] TUMOR LOC SPECT/CTon 022 TUMOR LOC SPECT/CT Patient Name: JUNIOR TORRES STUDY: TUMOR LOC SPECT/CT; LYMPH GLAND; 07/07/2022 2:33 pm INDICATION: WLE of Back w/ SLNB on 07/07/2022 C43.59: Malignant melanoma of back. COMPARISON: None. ACCESSION NUMBER(S): [id number]; [id number] ORDERING CLINICIAN: ОЛЬГА BROWN TECHNIQUE: DIVISION OF NUCLEAR MEDICINE RADIONUCLIDE SENTINEL LYMPH NODE LYMPHOSCINTIGRAPHY A total of 1.003 millicuries of Tc-99m tilmanocept ([employer]) was injected intradermally in a circumferential pattern surrounding the patient's left upper shoulder/back melanoma biopsy site. Sequential images were then acquired. FINDINGS: Planar images reveals relatively intense tracer deposition in the region of the injection site with a small focus noted inferolaterally in the left axilla. SPECT CT images reveals a focal area of intense activity representing a sentinel lymph node was identified in the left axilla. Note is made of a second lymph node of lesser intensity slightly anterior. IMPRESSION: Successful sentinel lymph node localization with sentinel lymph node identified in the left axilla. Images were sent to PACS. I personally reviewed the images/study and I agree with the findings as stated. This study was interpreted at [facility], [place], [place]. Electronically signed by: HAILEE AGUDELO MD Normal [facility] CORONAVIRUS 2019 BY PCR, SCR EEN ASYMPTOMATIC AMBULATORYon 07-06-2022 SARS-CoV-2 (COVID-19) RNA MARAH+probe Ql (Unsp spec) Not detected Normal Not Detected [facility] Comment on above: Result Comment: . This assay is designed to detect the N, ORF1ab and/or S genes of SARS-CoV-2 via nucleic acid amplification. A Negative (NOT DETECTED) result does not preclude 2019-nCoV infection since the adequacy of sample collection and/or low viral burden may result in presence of viral nucleic acids below the clinical sensitivity of this test method. Negative (NOT DETECTED) result should not be used as the sole basis for treatment or other patient management decisions. Rather negative results should be combined with clinical observations, patient history, and epidemiological information to make patient management decisions. Fact sheet for providers: https://www.fda.gov/media/006575/download Fact sheet for patients: https://www.fda.gov/media/678198/download This test has received FDA Emergency Use Authorization (EUA) and has been verified by [facility] ([facility]). This test is only authorized for the duration of time that circumstances exist to justify the authorization of the emergency use of in vitro diagnostic tests for the detection of SARS-CoV-2 virus and/or diagnosis of COVID-19 infection under section 564(b)(1) of the Act, 21 U.S.C. 360bbb-3(b)(1), unless the authorization is terminated or revoked sooner. [facility] is certified under CLIA-88 as qualified to perform high complexity testing. Testing is performed in the [facility] laboratories located at [address] [place], [place] [id number]. Performed By: #### C OVSA #### [facility] [address] [place] [address] Covid 19 Resultson 2 SARS-CoV-2 (COVID-19) RNA MARAH+probe Ql (Unsp spec) NEGATIVE COVID-19 Test Coronaviruses are common world-wide and are the cause of many common colds. SARS-COV2 is a new coronavirus that began circulating worldwide in 2019 so we are calling it COVID-19. It has been estimated that four out of five patients with COVID-19 will recover at home without the need for medical attention. Symptoms of COVID-19 may include cough, fever, shortness of breath, loss of taste or smell and other flu-like symptoms including chills, sore muscles, sore throat, and headache. Severe illness is more common in older people and people with other health problems such as high blood pressure, obesity, and immune system problems. If the test is positive, you have COVID-19. You will be contacted by the ordering physicians office and instructed to remain on home isolation, in accordance with CDC guidelines. You may also be contacted by the [facility] to see if any of your close contacts may have been exposed to the virus and need to quarantine. If the test is negative, you likely do not have COVID-19 at this time, but you still may have a different illness that can spread to other people (like Influenza, or the Flu) and could still be at risk for getting COVID-19. We recommend that you stay away from other people to limit the spread of illness until your symptoms are improving and you are fever-free for 24 hours without the use of fever lowering medications such as acetaminophen or ibuprofen. No test is 100% accurate so if you are still concerned you may have COVID-19, talk to your doctor about the need to continue to stay away from others. Medicines Unless your provider told you not to use the following: Acetaminophen (Tylenol and others) is generally safe. Anti-inflammatory medications, such as Ibuprofen (Advil or Motrin) or Naproxen (Aleve) can also be used. Wisz-xxo-phmuxzt cough and cold medicines can be used according to the instructions on the package. Some jnnb-wgs-aqejkwb medicines also contain acetaminophen. Make sure you are not taking more than your recommended dose. For those not hospitalized, there is no specific treatment available for this illness. Antibiotics do not treat Coronaviruses. Follow-Up Follow up with your doctor by scheduling a virtual visit or consider follow-up at one of our urgent care fever clinics. If you are having difficulty breathing, or are very weak and having difficulty standing, this is a medical emergency. Call 911 or have someone take you to the nearest emergency room immediately. If possible, wear a facemask. Additional guidance from the CDC for patients who tested POSITIVE for COVID-19 How to isolate: Isolate yourself in a specific room at home and limit your contact with others. Use a separate bathroom from other members of the household, when possible. Leave home only to get essential medical care. Do not go to work, school or public areas. Avoid using public transportation, ride-sharing, or taxis. Restrict contact with pets and other animals. If you must care for your pet or be around animals while you are sick, wash your hands before and after your interaction and wear a facemask. Make sure that shared spaces in the home have good airflow, such as by an air conditioner or an opened window, weather permitting. Personal Hygiene Procedures: Wear a face mask when in the same room as other people or pets. If a face mask interferes with your breathing, others should wear a mask when sharing space with you. Frequent hand-washing: wash your hands with soap and water for at least 20 seconds. If soap and water are not available, use alcohol-based hand silica spray mixer. Avoid touching your eyes, nose, and mouth with unwashed hands. Household Hygiene Procedures: Avoid sharing personal household items such as dishes, glassware, cups, eating utensils, towels or bedding with other people or pets in your home. After use, these items should be washed with soap and hot water. Disinfect all high-touch surfaces every day with antibacterial cleaning solutions such as Lysol wipes, bleach, cleansers, etc. High-touch surfaces include tabletops, doorknobs, bathroom fixtures, toilets, phones, keyboards, tablets and bedside tables. Immediately clean any surfaces that may have blood, poop or body fluids on them, using antibacterial cleaning solutions such as Lysol wipes, bleach, cleansers, etc. If clothing or bedding come into contact with blood, poop or body fluids, they should be washed immediately. Follow the directions on the laundry detergent and clothing labels but hot water is recommended when possible. Stopping home isolation precautions: If possible, consult your doctor before stopping home isolation precautions. According to the CDC, you can discontinue home isolation precautions when you have met both of these criteria: Your fever and respiratory symptoms have been gone for 24 tayla (more content not included)... Normal [facility] BASIC METABOLIC PANELon 08-2 Anion gap [Moles/Vol] 10 mmol/L Normal 10 - 20 [facility] Comment on above: Performed By: #### B MP #### [address] [address] Calcium [Mass/Vol] 9.2 mg/dL Normal 8.6 - 10.3 [facility] Comment on above: Performed By: #### B MP #### [address] [address] Chloride [Moles/Vol] 104 mmol/L Normal 98 - 107 [facility] Comment on above: Performed By: #### B MP #### [address] [address] Creatinine [Mass/Vol] 1.66 mg/dL High 0.50 - 1.30 [facility] Comment on above: Performed By: #### B MP #### [address] [address] GFR/1.73 sq M.predicted among non-blacks MDRD (S/P/Bld) [Vol rate/Area] 42 mL/min/{1.73_m2} Abnormal >90 [facility] Comment on above: Result Comment: CALC ULATIONS OF ESTIMATED GFR ARE PERFORMED USING THE 2020 CKD-EPI STUDY REFIT EQUATION WITHOUT THE RACE VARIABLE FOR THE IDMS-TRACEABLE CREATININE METHODS. https://jasn.asnjournals.org/content//ASN.195954 2087 Performed By: #### B MP #### [address] [address] Glucose [Mass/Vol] 90 mg/dL Normal 74 - 99 [facility] Comment on above: Performed By: #### B MP #### [address] [address] HCO3 (Bld) [Moles/Vol] 29 mmol/L Normal 21 - 32 [facility] Comment on above: Performed By: #### B MP #### [address] [address] Potassium [Moles/Vol] 4.1 mmol/L Normal 3.5 - 5.3 [facility] Comment on above: Performed By: #### B MP #### [address] [address] Sodium [Moles/Vol] 139 mmol/L Normal 136 - 145 [facility] Comment on above: Performed By: #### B MP #### [address] [address] Urea nitrogen [Mass/Vol] 25 mg/dL High 6 - 23 [facility] Comment on above: Performed By: #### B MP #### [address] [address] CORONAVIRUS 2019 BY PCR, SCR EEN ASYMPTOMATIC AMBULATORYon 07-05-2022 Lab Specimen Source Nasal, Nasopharyngeal Normal [facility] Comment on above: Performed By: #### C OVSA #### [facility] [address] [place] [address] Electrocardiogram 12 Leadon 07-05-2022 Electrocardiogram 12 Lead Ventricular Rate 46 Atrial Rate 46 P-R Interval 212 QRS Duration 94 Q-T Interval 440 QTC Calculation(Bazett) 385 P [place] 53 R [place] 17 T [place] 116 QRS Count 7 Q Onset 223 P Onset 117 P Offset 172 T Offset 443 QTC Fredericia 402 Diagnosis Class Abnormal Diagnosis Marked sinus bradycardia with 1st degree AV block Nonspecific T wave abnormality Abnormal ECG No previous ECGs available Confirmed by Cleveland Sheth ([id number]) on 07/12/2022 10:02:02 PM Normal [facility] Laboratory - Chemistry and C hemistry - challengeon 07-05-2022 Anion gap [Moles/Vol] 10 mmol/L 10 - 20 MG- SurgeryS [facility] Work Phone: Calcium [Mass/Vol] 9.2 mg/dL 8.6 - 10.3 MG-Yaritza lennieS [facility] Work Phone: [phone] Chloride [Moles/Vol] 104 mmol/L 98 - 107 MG-S urgeryS [facility] Work Phone: CO2 [Moles/Vol] 29 mmol/L 21 - 32 MG-Surger y-S [facility] Work Phone: [phone] Creatinine [Mass/Vol] 1.66 mg/dL above high threshold See Below PE-Fxravyt-G [facility] Work Phone: Comment on above: Reference Range: 0.5 0 - 1.30 Glucose [Mass/Vol] 90 mg/dL 74 - 99 [facility] Work Phone: Potassium [Moles/Vol] 4.1 mmol/L 3.5 - 5.3 - SurgeryS [facility] Work Phone: Sodium [Moles/Vol] 139 mmol/L 136 - 145 [facility] Work Phone: Urea nitrogen [Mass/Vol] 25 mg/dL above high threshold 6 - 23 QO[facility]Ktjjnae[facility] Work Phone: No Panel Informationon 07-05 Not detected Normal See Below JD[facility]Xgxeatz[facility] Work Phone: Comment on above: SOURCE: Nasal, Nasop haryngealReference Range: Not Detected.This assay is designed to detect the N, ORF1ab and/or S genes of SARS-CoV-2 via nucleic acid amplification. A Negative (NOT DETECTED) result does not preclude 2019-nCoV infection since the adequacy of sample collection and/or low viral burden may result in presence of viral nucleic acids below the clinical sensitivity of this test method. Negative (NOT DETECTED) result should not be used as the sole basis for treatment or other patient management decisions. Rather negative results should be combined with clinical observations, patient history, and epidemiological information to make patient management decisions.Fact sheet for providers: https://www.fda.gov/media/965532/downloadFact sheet for patients: https://www.fda.gov/media/910841/downloadThis test has received FDA Emergency Use Authorization (EUA) and has been verified by [facility] ([facility]). This test is only authorized for the duration of time that circumstances exist to justify the authorization of the emergency use of in vitro diagnostic tests for the detection of SARS-CoV-2 virus and/or diagnosis of COVID-19 infection under section 564(b)(1) of the Act, 21 U.S.C. 360bbb-3(b)(1), unless the authorization is terminated or revoked sooner. [facility] is certified under CLIA-88 as qualified to perform high complexity testing. Testing is performed in the [facility] laboratories located at [address] [place] [address]. 42 {mL/min/1.73m2} Abnormal >90 MG-Yaritza [facility] Work Phone: Comment on above: CALCULATIONS OF YADIEL MATED GFR ARE PERFORMED USING THE 2020 CKD-EPI STUDY REFIT EQUATION WITHOUT THE RACE VARIABLE FOR THE IDMS-TRACEABLE CREATININE METHODS.https://jasn.asnjournals.org/content/early/ N.8231478101 https://MUSEXPRDWE B01:8 080/musescripts/museweb.d ll?RetrieveTestByDateTime ?EkpmzfpUR=[id number]&Date =05-07-2022&Time=10%3a10% 3a53%3a00&TestType=ECG&Si te=12&OutputType=PDF&Ext= PDF -[facility] [address] DO Work Phone: Marked sinus bradyca rdia with 1st degree AV block -[facility] [address] DO Work Phone: Abnormal -[facility] [address] DO Work Phone: [phone] [facility] [facility] DO Work Phone: [phone] [facility] [facility] DO Work Phone: [phone] [facility] [facility] DO Work Phone: [phone] [facility] [facility] DO Work Phone: [phone] [facility] [facility] DO Work Phone: [phone] [facility] [place] [facility] DO Work Phone: [phone] [facility] [place] [facility] DO Work Phone: [phone] [facility] [place] [facility] DO Work Phone: [phone] [facility] [place] [facility] DO Work Phone: [phone] [facility] [facility] DO Work Phone: [phone] [facility] [place] [facility] DO Work Phone: [phone] [facility] [place] [facility] DO Work Phone: [phone] [facility] [place] [facility] DO Work Phone: [phone] [facility] [place] [facility] DO Work Phone: Tobacco Screening.on 022 Fall risk assessment a) No falls within the last year [facility] Work Phone: Tobacco use status [facility] b) No [facility] Work Phone: Dermatopathologyon Dermatopathology Name: TREVER TORRES Pathologist: LEONOR LÓPEZ MD Date of Procedure: 06/16/2022 Date Received: 06/16/2022 Date Reported 06/23/2022 Submitting Physician: ОЛЬГА BROWN MD Location: [facility] Copy To/Referring/Attending: JULITA OWEN MD FINAL DIAGNOSIS 1 [facility] #[id number] (BX: 06/06/2022) SKIN, LEFT UPPER BACK, SHAVE BIOPSY: MALIGNANT MELANOMA, 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 Note: Microscopic examination reveals a specimen that extends into the dermis. There is a possible nest of melanocytes along the dermal-epidermal junction. There are nests of round melanocytes in the superficial dermis with moderately enlarged nuclei and moderate cytoplasm in addition to a moderate lymphocytic infiltrate. In the underlying dermis there are atypical spindled cells dissecting between collagen bundles with a patchy perivascular lymphocytic infiltrate. There is minimal epidermal attachment which raises the possibility of a metastatic or recurrent melanoma. If it is a primary melanoma it would be a mixed desmoplastic type with features as outlined in the synoptic report below. Electronically Signed Out by LEONOR LÓPEZ M.D. CANCER SUMMARY REPORT A. 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 Ulceration: Not identified Anatomic (Kole) Level: At least level: IV Focally transected on the deep margin. Mitotic Rate: 1 mitoses per mm2 Microsatellite(s): Not identified Lymphovascular Invasion: Not identified Neurotropism: Not identified Tumor-Infiltrating Lymphocytes: Present, nonbrisk Tumor Regression: Not identified MARGINS Margin Status for Invasive Melanoma: Invasive melanoma present at margin Margin(s) Involved by Invasive Melanoma: Deep PATHOLOGIC STAGE CLASSIFICATION (pTNM, AJCC 8th Edition) Reporting of pT categories is based on information available to the pathologist at the time the report is issued. As per the AJCC (Chapter 1, 8th Ed.) it is the managing physician?s responsibility to establish the final pathologic stage based upon all pertinent information, including but potentially not limited to this pathology report. pT Category: pT2a ADDITIONAL FINDINGS Additional Findings: None ADDITIONAL TESTING [facility] Blocks: Normal Block: A1 Tumor Block: A2 Electronically Signed Out By LEONOR LÓPEZ MD/ROMAINE [facility] [address] [place] [id number], [facility] [address] Clinical History: SHAVE/ 0.4X0.4CM MELANOMA VS ATYPICAL NEVUS Specimens Submitted As: A: 2 [facility] #[id number] (BX: 06/06/2022) Gross Description: Received for consultation from [facility] is one slide labeled [id number] (BX: 06/06/2022) along with the corresponding pathology report. One H+E slide for block 2 received 06/23/22 upon request. Slide/Block Description 1 SLIDE, [id number]. Keep Slides: N Slides Returned: N Personal Consult: N Normal [facility] Comment on above: Performed By: #### D #### Dermatopathology No Panel Informationon 06-16 [facility] Work Phone: Tobacco Screening.on Adult depression screening assessment No [facility] [place] [facility] DO Work Phone: [phone] Fall risk assessment a) No falls within the last year [facility] DO Work Phone: Tobacco use status [facility] b) No [facility] DO Work Phone: Tobacco Screening.on Fall risk assessment a) No falls within the last year [facility] DO Work Phone: Heart Rate Regular [facility] DO Work Phone: Tobacco use status [facility] b) No [facility] DO Work Phone: Tobacco Screening.on Fall risk assessment a) No falls within the last year [facility] DO Work Phone: [phone] Tobacco use status [facility] b) No [facility] DO Work Phone: Blood Urea Nitrogenon 2020 Urea nitrogen [Mass/Vol] 27 mg/dL High 9- [facility] Comment on above: Order Comment: Call if K result is <3.5 or >5.0 Performed By: #### L TENISHA BUN, CREAT #### [facility] [address] [place] [address] Creatinineon 06-28-2021 Creatinine [Mass/Vol] 1.87 mg/dL High 0.64-1.27 [facility] Comment on above: Order Comment: Call if K result is <3.5 or >5.0 Performed By: #### L TENISHA BUN, CREAT #### [address] Estimated GFR ( Juliann 43 [facility] Comment on above: Order Comment: Call if K result is <3.5 or >5.0 Result Comment: GFR estimated reference range: According to KDOQI guidelines, <60 ml/min/1.73m2 is sufficient to diagnose a patient with chronic kidney disease. PERFORMED BY: [place] [address] PATHOLOGIST CIVIL STRUCTURAL ENGINEER JUDY ROMERO M.D. Performed By: #### L TENISHA BUN, CREAT #### [address] Estimated GFR (Non- Am 35 [facility] Comment on above: Order Comment: Call if K result is <3.5 or >5.0 Performed By: #### L TENISHA BUN, CREAT #### [facility] [address] [place] [address] Electrolyteson 06-28-2021 Chloride [Moles/Vol] 103 mmol/L Normal 95-114 [facility] Comment on above: Order Comment: Call if K result is <3.5 or >5.0 Performed By: #### L YTJAYLEN BUN, CREAT #### [facility] [address] CO2 [Moles/Vol] 25.2 mmol/L Normal 22.0-30.0 [facility] Comment on above: Order Comment: Call if K result is <3.5 or >5.0 Performed By: #### L CLEVE STEVEN, CREAT #### [facility] [address] [place] [address] Potassium [Moles/Vol] 5.5 mmol/L High 3.5-5.1 [facility] Comment on above: Order Comment: Call if K result is <3.5 or >5.0 Performed By: #### L CLEVE STEVEN, CREAT #### [facility] [address] [place] [address] Sodium [Moles/Vol] 137 mmol/L Normal 136-146 [facility] Comment on above: Order Comment: Call if K result is <3.5 or >5.0 Performed By: #### L CLEVE STEVEN, CREAT #### [facility] [address] [place] [address] MUGA SCAN INJECTIONon [facility] MUGA SCAN INJECTION Patient Name: JUNIOR TORRES STUDY: MUGA SCAN INJECTION; MUGA (GATED CARDIAC BLOOD POOL); 06/11/2020 3:13 pm; 06/11/2020 3:17 pm Performing facility: [facility] [place], [address] [place] [address] [address] [address] Patient name: JUNIOR TORRES Gender: M Age: 75 y/o Height: 70 ; Weight: 192lbs; BMI: INDICATION: MUGA. Ischemic Cardiomyopathy HISTORY: HTN, CAD, FAMILY HX CAD, CABG 1994, CATH 2018 COMPARISON: None. ACCESSION NUMBER(S): [id number]; [id number] ORDERING CLINICIAN: BUD CARLIN TECHNIQUE: The patient's red blood cells were labeled with 24.5 mCi of Technetium-99m using in-vivo technique with PYP. Imaging was performed at rest by planar technique in multiple views FINDINGS: The right ventricle was slightly enlarged but with normal function l. The left ventricle was normal in size. Regional wall motion was normal. Global resting LVEF was normal- at 51%. IMPRESSION: Normal resting right ventricular function, the right ventricle is slightly enlarged. Normalresting left ventricular function. Left ventricular ejection fraction is 51%. No previous studies are available for comparison Electronically signed by: OLGA ARELLANO MD [facility] Vital Signs Date Time Vital Sign Value Performing Clinician Facility 03-15-2024 13:53-0400 Diastolic blood pressure 77 mm[Hg] Ольга Barros Work Phone: [facility] 03-15-2024 13:53-0400 Systolic blood pressure 159 mm[Hg] Ольга Barros Work Phone: [facility] 03-15-2024 13:50-0400 Body height 180.34 cm Ольга Barros Work Phone: [facility] 03-15-2024 13:50-0400 Body mass index (BMI) [Ratio] 24.5 kg/m2 Ольга Barros Work Phone: [facility] 03-15-2024 13:50-0400 Body temperature 98 [degF] Ольга Barros Work Phone: [facility] 03-15-2024 13:50-0400 Body weight 79.97 kg Ольга Barros Work Phone: [facility] 03-15-2024 13:50-0400 Heart rate 47 /min Ольга Barros Work Phone: [facility] 03-15-2024 13:50-0400 Respiratory rate 16 /min Ольга Tejedat Work Phone: [facility] 03-15-2024 13:50-0400 SaO2% (BldA) [Mass fraction] 100 % Ольга Barros Work Phone: [facility] 02-13-2024 14:12-0400 Diastolic blood pressure 61 mm[Hg] Ольга Tejedat Work Phone: [facility] 02-13-2024 14:120400 Respiratory rate 16 /min Ольга Barros Work Phone: [facility] 02-13-2024 14:12-0400 Systolic blood pressure 141 mm[Hg] Ольга Barros Work Phone: [facility] 02-13-2024 14:07-0400 Body height 180.34 cm Ольга Barros Work Phone: [facility] 02-13-2024 14:07-0400 Body mass index (BMI) [Ratio] 24.5 kg/m2 Ольга Barros Work Phone: [facility] 02-13-2024 14:07-0400 Body temperature 96.3 [degF] Ольга Barros Work Phone: [facility] 02-13-2024 [id number] Body weight 79.63 kg Ольга Barros Work Phone: [facility] 02-13-2024 14:07-0400 Heart rate 42 /min Ольга Barros Work Phone: [facility] 02-13-2024 14:07-0400 SaO2% (BldA) [Mass fraction] 98 % Ольга Barros Work Phone: [facility] 12-20-2023 14:41-0500 Body height 177.8 cm Bud Carlin DO Work Phone: [facility] 12-20-2023 14:41-0500 Body mass index (BMI) [Ratio] 25.54 kg/m2 Bud Carlin DO Work Phone: [facility] 12-20-2023 14:41-0500 Body weight 80.74 kg Bud Carlin DO Work Phone: [facility] 12-20-2023 14:41-0500 Diastolic blood pressure 62 mm[Hg] Bud Carlin DO Work Phone: [facility] 12-20-2023 14:41-0500 Heart rate 50 /min Bud Carlin DO Work Phone: [facility] 12-20-2023 14:41-0500 Systolic blood pressure 120 mm[Hg] Bud Carlin DO Work Phone: [facility] 03-14-2023 15:00-0400 Body mass index (BMI) [Ratio] 25.59 kg/m2 Hayden Oberer Other [employer] Other 03-14-2023 15:00-0400 Body temperature 97.7 [degF] Hayden Oberer Other [employer] Other 03-14-2023 15:00-0400 Body weight 83.24 kg Hayden Oberer Other [employer] Other 03-14-2023 15:00-0400 Diastolic blood pressure 50 mm[Hg] Hayden Oberer Other [employer] Other 03-14-2023 15:00-0400 Respiratory rate 16 /min Hayden Oberer Other [employer] Other 03-14-2023 15:00-0400 SaO2% (BldA) [Mass fraction] 97 % Hayden Oberer Other [employer] Other 03-14-2023 15:00-0400 Systolic blood pressure 100 mm[Hg] Hayden Oberer Other [employer] Other 03-14-2023 11:15-0400 Body height 180.34 cm Jacob Marrero Other [employer] Other 03-14-2023 11:15-0400 Body mass index (BMI) [Ratio] 25.38 kg/m2 Jacob Mccauleyno Other [employer] Other 03-14-2023 11:15-0400 Body temperature 96.7 [degF] Jacob Isabeldano Other [employer] Other 03-14-2023 11:15-0400 Body weight 82.56 kg Kever Janes Other [employer] Other 03-14-2023 11:15-0400 Diastolic blood pressure 70 mm[Hg] Kever Janes Other [employer] Other 03-14-2023 11:15-0400 Respiratory rate 20 /min Jacob Isabeldano Other [employer] Other 03-14-2023 11:15-0400 SaO2% (BldA) [Mass fraction] 98 % Jacob Mccauleyno Other [employer] Other 03-14-2023 11:15-0400 Systolic blood pressure 120 mm[Hg] Jacob Isabeldano Other [employer] Other 01-18-2023 14:15-0500 Body height 180.34 cm Crescencio Mendez Other [employer] Other 01-18-2023 14:15-0500 Body mass index (BMI) [Ratio] 25.66 kg/m2 Crescencio Mendez Other [employer] Other 01-18-2023 14:15-0500 Body weight 83.46 kg Crescencio Mendez Other [employer] Other 01-18-2023 14:15-0500 Diastolic blood pressure 70 mm[Hg] Crescencio Mendez Other [facility] [employer] Other 01-18-2023 14:15-0500 Respiratory rate 18 /min Crescencio Mendez Other [facility] [employer] Other 01-18-2023 14:15-0500 Systolic blood pressure 142 mm[Hg] Crescencio Mendez Other [facility] [employer] Other 12-14-2022 11:33-0500 Body height 177.8 cm Hayden L [facility]berer Work Phone[facility] [employer] [facility] DO Work Phone: 12-14-2022 11:33-0500 Body mass index (BMI) [Ratio] 26.26 kg/m2 Hayden L Oberer Work Phone: [facility] [employer] 250 DO Work Phone: 12-14-2022 11:33-0500 Body surface area Derived from formula 2.01 m2 Hayden L Oberer Work Phone: [facility] [employer] 250 DO Work Phone: 12-14-2022 11:33-0500 Body weight 83.01 kg Hayden L Oberer Work Phone: [facility] [employer] 250 DO Work Phone: 12-14-2022 11:33-0500 Diastolic blood pressure 60 mm[Hg] Hadyen L Oberer Work Phone: [facility] [employer] 250 DO Work Phone: 12-14-2022 11:33-0500 Heart rate 54 /min Hayden L Oberer Work Phone: [facility] [employer] 250 DO Work Phone: 12-14-2022 11:33-0500 Systolic blood pressure 134 mm[Hg] Hayden L Oberer Work Phone: [facility] 250 DO Work Phone: 09-13-2022 14:15-0400 Body height 180.34 cm Hayden Oberer Other [employer] Other 09-13-2022 14:15-0400 Body mass index (BMI) [Ratio] 25.84 kg/m2 Hayden Oberer Other [employer] Other 09-13-2022 14:15-0400 Body temperature 98.2 [degF] Hayden Oberer Other [employer] Other 09-13-2022 14:15-0400 Body weight 84.05 kg Hayden Oberer Other [employer] Other 09-13-2022 14:15-0400 Diastolic blood pressure 70 mm[Hg] Hayden Oberer Other [employer] Other 09-13-2022 14:15-0400 Respiratory rate 16 /min Hayden Oberer Other [employer] Other 09-13-2022 14:15-0400 SaO2% (BldA) [Mass fraction] 98 % Hayden Oberer Other [employer] Other 09-13-2022 14:15-0400 Systolic blood pressure 145 mm[Hg] Hayden Oberer Other [employer] Other 09-06-2022 12:38-0400 Body height 177.8 cm Hayden L Oberer Work Phone: [facility] 100 Work Phone: 09-06-2022 12:38-0400 Body mass index (BMI) [Ratio] 26.4 kg/m2 Hayden L Oberer Work Phone: [facility] 100 Work Phone: 09-06-2022 12:38-0400 Body surface area Derived from formula 2.01 m2 Hayden L Oberer Work Phone: [facility] 100 Work Phone: 09-06-2022 12:38-0400 Body temperature 97.7 [degF] Hayden L Oberer Work Phone: [facility] 100 Work Phone: 09-06-2022 12:38-0400 Body weight 83.46 kg Hayden L Oberer Work Phone: [facility] 100 Work Phone: 09-06-2022 12:38-0400 Diastolic blood pressure 69 mm[Hg] Hayden L Oberer Work Phone: [facility] 100 Work Phone: 09-06-2022 12:38-0400 Heart rate 57 /min Hayden L Oberer Work Phone: [facility] 100 Work Phone: 09-06-2022 12:38-0400 Respiratory rate 18 /min Hayden L Oberer Work Phone: [facility] 100 Work Phone: 09-06-2022 12:38-0400 SaO2% (BldA) [Mass fraction] 96 % Hayden L Oberer Work Phone: [facility] 100 Work Phone: 09-06-2022 12:38-0400 Systolic blood pressure 122 mm[Hg] Hayden L Oberer Work Phone: [facility] 100 Work Phone: 08-16-2022 11:53-0400 Body height 177.8 cm Hayden L Oberer Work Phone: [facility]Wfye[facility]of-Fg[facility] [place] Work Phone: 08-16-2022 11:53-0400 Body mass index (BMI) [Ratio] 26.11 kg/m2 Hayden L Oberer Work Phone: [facility]pl[facility] [place] Work Phone: 08-16-2022 11:53-0400 Body surface area Derived from formula 2.01 m2 Hayden L Oberer Work Phone: OW-Psyjjup-Npnf [facility] [place] Work Phone: 08-16-2022 11:53-0400 Body temperature 97.88 [degF] Hayden L Oberer Work Phone: ET-Ohgjjpk-Owho [facility] [place] Work Phone: 08-16-2022 11:53-0400 Body weight 82.56 kg Hayden L Oberer Work Phone: FH-Eebodob-Ytvk [facility] [place] Work Phone: 08-16-2022 11:53-0400 Diastolic blood pressure 73 mm[Hg] Hayden L Oberer Work Phone: SO-Hdfyfci-Jekk [facility] [place] Work Phone: 08-16-2022 11:53-0400 Heart rate 56 /min Hayden L Oberer Work Phone: BW-Egbohwo-Wlxd [facility] [place] Work Phone: 08-16-2022 11:53-0400 Respiratory rate 18 /min Hayden L Oberer Work Phone: OR-Fpnfwse-Klzq [facility] [place] Work Phone: 08-16-2022 11:53-0400 SaO2% (BldA) [Mass fraction] 95 % Hayden L Oberer Work Phone: AR-Ujwxegi-Free [facility] [place] Work Phone: 08-16-2022 11:53-0400 Systolic blood pressure 150 mm[Hg] Hayden L Oberer Work Phone: VV-Bfhacpk-Auhs [facility] [place] Work Phone: 07-19-2022 12:47-0400 Body height 177.8 cm Hayden L Oberer Work Phone: [facility] Work Phone: 07-19-2022 12:47-0400 Body mass index (BMI) [Ratio] 25.83 kg/m2 Hayden L Oberer Work Phone: [facility] Work Phone: 07-19-2022 12:47-0400 Body surface area Derived from formula 2 m2 Hayden L Oberer Work Phone: [facility] Work Phone: 07-19-2022 12:47-0400 Body temperature 97.34 [degF] Hayden L Oberer Work Phone: [facility] Work Phone: 07-19-2022 12:47-0400 Body weight 81.65 kg Hayden L Oberer Work Phone: [facility] Work Phone: 07-19-2022 12:47-0400 Diastolic blood pressure 68 mm[Hg] Hayden L Oberer Work Phone: [facility] Work Phone: 07-19-2022 12:47-0400 Heart rate 50 /min Hayden L Oberer Work Phone: [facility] Work Phone: 07-19-2022 12:47-0400 Respiratory rate 16 /min Hayden L Oberer Work Phone: [facility] Work Phone: 07-19-2022 12:47-0400 SaO2% (BldA) [Mass fraction] 96 % Hayden L Oberer Work Phone: [facility] Work Phone: 07-19-2022 12:47-0400 Systolic blood pressure 114 mm[Hg] Hayden L Oberer Work Phone: [facility] Work Phone: 07-05-2022 12:01-0400 Body height 177.8 cm Hayden L Oberer Work Phone: [facility] Work Phone: 07-05-2022 12:01-0400 Body mass index (BMI) [Ratio] 26.11 kg/m2 Hayden L Oberer Work Phone: [facility] Work Phone: 07-05-2022 12:01-0400 Body surface area Derived from formula 2.01 m2 Hayden L Oberer Work Phone: [facility] Work Phone: 07-05-2022 12:01-0400 Body temperature 97.8 [degF] Hayden L Oberer Work Phone: [facility] Work Phone: 07-05-2022 12:01-0400 Body weight 82.56 kg Hayden L Oberer Work Phone: [facility] Work Phone: 07-05-2022 12:01-0400 Diastolic blood pressure 84 mm[Hg] Hayden L Oberer Work Phone: [facility] Work Phone: 07-05-2022 12:01-0400 Heart rate 48 /min Hayden L Oberer Work Phone: [facility] Work Phone: 07-05-2022 12:01-0400 Respiratory rate 16 /min Hayden L Oberer Work Phone: [facility] Work Phone: 07-05-2022 12:01-0400 SaO2% (BldA) [Mass fraction] 95 % Hayden L Oberer Work Phone: [facility] Work Phone: 07-05-2022 12:01-0400 Systolic blood pressure 192 mm[Hg] Hayden L Oberer Work Phone: [facility] Work Phone: 03-15-2022 11:15-0400 Body height 180.34 cm Jacob Marrero Other [employer] Other 03-15-2022 11:15-0400 Body mass index (BMI) [Ratio] 26.36 kg/m2 Jacob Marrero Other [employer] Other 03-15-2022 11:15-0400 Body temperature 98 [degF] Jacob Marrero Other [employer] Other 03-15-2022 11:15-0400 Body weight 85.73 kg Jacob Marrero Other [employer] Other 03-15-2022 11:15-0400 Diastolic blood pressure 67 mm[Hg] Kever Janes Other [employer] Other 03-15-2022 11:15-0400 Respiratory rate 20 /min Christleeanneer Janes Other [employer] Other 03-15-2022 11:15-0400 SaO2% (BldA) [Mass fraction] 100 % Kever Janes Other [employer] Other 03-15-2022 11:15-0400 Systolic blood pressure 157 mm[Hg] Kever Janes Other [employer] Other 03-14-2022 14:45-0400 Body height 180.34 cm Hayden Oberer Other [employer] Other 03-14-2022 14:45-0400 Body mass index (BMI) [Ratio] 26.71 kg/m2 Hayden Oberer Other [employer] Other 03-14-2022 14:45-0400 Body temperature 98 [degF] Hayden Oberer Other [employer] Other 03-14-2022 14:45-0400 Body weight 86.86 kg Hayden Oberer Other [employer] Other 03-14-2022 14:45-0400 Diastolic blood pressure 64 mm[Hg] Hayden Oberer Other [employer] Other 03-14-2022 14:45-0400 Respiratory rate 16 /min Hayden Oberer Other [employer] Other 03-14-2022 14:45-0400 SaO2% (BldA) [Mass fraction] 98 % Hayden Oberer Other [employer] Other 03-14-2022 14:45-0400 Systolic blood pressure 152 mm[Hg] Hayden Oberer Other [facility] [employer] Other 01-19-2022 11:22-0500 Body height 177.8 cm Hayden L Oberer Work Phone: [facility] 250 DO Work Phone: 01-19-2022 11:22-0500 Body mass index (BMI) [Ratio] 26.83 kg/m2 Hayden L Oberer Work Phone: [facility] 250 DO Work Phone: 01-19-2022 11:22-0500 Body surface area Derived from formula 2.03 m2 Hayden L Oberer Work Phone: [facility] [facility] DO Work Phone: 01-19-2022 11:22-0500 Body weight 84.82 kg Hayden L Oberer Work Phone: [facility] 250 DO Work Phone: 01-19-2022 11:22-0500 Diastolic blood pressure 60 mm[Hg] Hayden L Oberer Work Phone: [facility] 250 DO Work Phone: 01-19-2022 11:22-0500 Heart rate 56 /min Hayden L Oberer Work Phone: [facility] 250 DO Work Phone: 01-19-2022 11:22-0500 Systolic blood pressure 120 mm[Hg] Hayden L Oberer Work Phone: [facility] 250 DO Work Phone: 12-22-2021 11:36-0500 Diastolic blood pressure 64 mm[Hg] Hayden L Oberer Work Phone: [facility] 250 DO Work Phone: 12-22-2021 11:36-0500 Diastolic blood pressure 50 mm[Hg] Hayden L Oberer Work Phone: [facility] 250 DO Work Phone: 12-22-2021 11:36-0500 Systolic blood pressure 118 mm[Hg] Haydne L Oberer Work Phone: [facility] 250 DO Work Phone: 12-22-2021 11:36-0500 Systolic blood pressure 90 mm[Hg] Hayden L Oberer Work Phone: [facility] 250 DO Work Phone: 12-22-2021 11:29-0500 Body height 177.8 cm Hayden L Oberer Work Phone: [facility] 250 DO Work Phone: 12-22-2021 11:29-0500 Body mass index (BMI) [Ratio] 26.83 kg/m2 Hayden L Oberer Work Phone: [facility] 250 DO Work Phone: 12-22-2021 11:29-0500 Body surface area Derived from formula 2.03 m2 Hayden L Oberer Work Phone: [facility] 250 DO Work Phone: 12-22-2021 11:29-0500 Body weight 84.82 kg Hayden L Oberer Work Phone: [facility] 250 DO Work Phone: 12-22-2021 11:29-0500 Diastolic blood pressure 64 mm[Hg] Hayden L Oberer Work Phone: [facility] 250 DO Work Phone: 12-22-2021 11:29-0500 Heart rate 48 /min Hayden L Oberer Work Phone: [facility] 250 DO Work Phone: 12-22-2021 11:29-0500 Systolic blood pressure 118 mm[Hg] Hayden L Oberer Work Phone: [facility] 250 DO Work Phone: 12-20-2021 09:25-0500 57.8 1 Hayden L Oberer Work Phone: [facility] 250 DO Work Phone: Comment on above: FSL 12-08-2021 10:49-0500 Diastolic blood pressure 64 mm[Hg] Hayden L Oberer Work Phone: [facility] [facility] DO Work Phone: 12-08-2021 10:49-0500 Systolic blood pressure 156 mm[Hg] Hayden L Oberer Work Phone: [facility] [facility] DO Work Phone: 12-08-2021 10:14-0500 Diastolic blood pressure 78 mm[Hg] Hayden L Oberer Work Phone: [facility] 250 DO Work Phone: 12-08-2021 10:14-0500 Systolic blood pressure 154 mm[Hg] Hayden L Oberer Work Phone: [facility] [facility] DO Work Phone: 12-08-2021 10:09-0500 Body height 177.8 cm Hayden L Oberer Work Phone: [facility] 250 DO Work Phone: 12-08-2021 10:09-0500 Body mass index (BMI) [Ratio] 26.98 kg/m2 Hayden L Oberer Work Phone: [facility] [facility] DO Work Phone: 12-08-2021 10:09-0500 Body surface area Derived from formula 2.03 m2 Hayden L Oberer Work Phone: [facility] [facility] DO Work Phone: 12-08-2021 10:09-0500 Body weight 85.28 kg Hayden L Oberer Work Phone: [facility] 250 DO Work Phone: 12-08-2021 10:09-0500 Diastolic blood pressure 77 mm[Hg] Hayden L Oberer Work Phone: [facility] [facility] DO Work Phone: 12-08-2021 10:09-0500 Heart rate 44 /min Hayden L Oberer Work Phone: [facility] [facility] DO Work Phone: 12-08-2021 10:09-0500 Systolic blood pressure 169 mm[Hg] Hayden L Oberer Work Phone: [facility] 250 DO Work Phone: 10-26-2021 12:00-0500 Body height 180.34 cm rCescencio Mendez Other [employer] Other 10-26-2021 12:00-0500 Body mass index (BMI) [Ratio] 25.94 kg/m2 Crescencio Mendez Other [employer] Other 10-26-2021 12:00-0500 Body weight 84.37 kg Crescencio Mendez Other [employer] Other 10-26-2021 12:00-0500 Diastolic blood pressure 81 mm[Hg] Crescencio Mendez Other [employer] Other 10-26-2021 12:00-0500 Systolic blood pressure 165 mm[Hg] Crescencio Mendez Other [employer] Other 09-13-2021 16:00-0400 Body height 180.34 cm Hayden Oberer Other [employer] Other 09-13-2021 16:00-0400 Body mass index (BMI) [Ratio] 26.02 kg/m2 Hayden Oberer Other [employer] Other 09-13-2021 16:00-0400 Body temperature 97.6 [degF] Hayden Oberer Other [employer] Other 09-13-2021 16:00-0400 Body weight 84.64 kg Hayden Oberer Other [employer] Other 09-13-2021 16:00-0400 Diastolic blood pressure 64 mm[Hg] Hayden Oberer Other [employer] Other 09-13-2021 16:00-0400 Respiratory rate 18 /min Hayden Oberer Other [employer] Other 09-13-2021 16:00-0400 SaO2% (BldA) [Mass fraction] 97 % Hayden Oberer Other [employer] Other 09-13-2021 16:00-0400 Systolic blood pressure 143 mm[Hg] Hayden Adams Other [facility] [employer] Other 1944 00:00-0400 >na< Julita Owen Dept. of Dermatology Encounters Encounter Date Encounter Type Care Provider Facility Start: 03-15-2024 End: 03-15-2024 ambulatory Ольга Barros Work Phone: [facility] Work Phone: Start: 03-15-2024 End: 03-15-2024 Patient encounter procedure Ольга Barros Work Phone: [facility] [place] Work Phone: Start: 02-29-2024 Non-patient / Non-visit Lauro De La Oght Work Phone: [facility] Work Phone: Start: 02-13-2024 End: 02-13-2024 ambulatory Ольга Barros Work Phone: [facility] Work Phone: Start: 02-13-2024 End: 02-13-2024 Patient encounter procedure Ольга Barros Work Phone: [facility] [place] Work Phone: Start: 01-19-2024 End: 01-19-2024 ambulatory [facility] Start: 01-17-2024 Non-patient / Non-visit Lauro Tejedat Work Phone: [facility] Work Phone: Start: 01-09-2024 End: 01-10-2024 ambulatory [facility] Start: 01-09-2024 End: 01-09-2024 Subsequent hospital visit by physician Siobhan Urban [facility] Comment on above: Ischemic cardiomyopa thy; CHF (NYHA class II, ACC/AHA stage C) ([facility]) Start: 12-20-2023 End: 12-20-2023 ambulatory [facility] Start: 12-20-2023 End: 12-20-2023 Office outpatient visit 40 minutes Bud Carlin DO Work Phone: [facility] Comment on above: 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, unspecified vessel or lesion type; Status post angioplasty; Ischemic cardiomyopathy; CHF (NYHA class II, ACC/AHA stage C) ([facility] History of coronary artery bypass graft; Essential hypertension; Hyperlipidemia, unspecified hyperlipidemia type; Bradycardia; Former smoker Start: 10-20-2023 End: 10-20-2023 ambulatory Hayden Oberer Other [employer] Other Start: 10-20-2023 Telephone encounter Hayden Oberer [facility] Start: 10-17-2023 End: 10-17-2023 ambulatory Hayden Oberer Other [employer] Other Start: 10-17-2023 Telephone encounter Hayden Oberer [facility] Start: 10-02-2023 End: 10-02-2023 ambulatory Hayden Oberer Other [employer] Other Start: 10-02-2023 Telephone encounter Hayden Oberer [facility] Start: 09-13-2023 End: 09-13-2023 ambulatory Hayden Oberer Other [employer] Other Start: 09-13-2023 Telephone encounter Hayden Oberer [facility] Start: 05-01-2023 End: 05-01-2023 ambulatory Hayden Oberer Other [employer] Other Start: 05-01-2023 Telephone encounter Hayden Oberer [facility] Start: 03-14-2023 End: 03-14-2023 ambulatory Jacob Marrero Other [employer] Other Start: 03-14-2023 Encounter for genera l adult medical examination without abnormal findings Hayden Adams [facility] Start: 03-14-2023 Office outpatient vi sit 15 minutes Jacob Marrero [facility] Start: 03-14-2023 Patient encounter procedure Hayden Adams [facility] [facility] Start: 03-10-2023 End: 03-11-[address] HAYDEN ADAMS Facility: Start: 01-18-2023 End: 01-18-2023 ambulatory Crescencio Mendez Other [facility] Other Start: 01-18-2023 Patient encounter procedure Crescencio Mendez [facility] Gastroenterology Start: 12-14-2022 ambulatory Hayden Mosquedaerer Facilit y: Start: 12-14-2022 Office outpatient vi sit 25 minutes Hayden Rema Oberer Work Phone: [facility] 250 DO Work Phone: Start: 09-30-2022 End: 09-30-2022 ambulatory Crescencio Mendez Other [facility] Other Start: 09-30-2022 Telephone encounter Crescencio Ruano [facility] Start: 09-29-2022 End: 09-29-2022 ambulatory Crescencio Mendez Other [facility] Other Start: 09-29-2022 Telephone encounter Crescencio Ruano [facility] Start: 09-19-2022 End: 09-19-2022 ambulatory Hayden Adams Other [facility] Other Start: 09-19-2022 Telephone encounter Hayden Obtimothy [facility] [address] Start: 09-13-2022 End: 09-13-2022 ambulatory Hayden Adams Other [facility] [employer] Other Start: 09-13-2022 Office outpatient vi sit 25 minutes Hayden Adams [facility] Start: 09-06-2022 Postop follow up vis it related to original px [facility] L [facility] Work Phone: Start: 09-06-2022 ambulatory Hayden Adams Facilit y: Start: 09-02-2022 End: 09-03-[address] HAYDEN ADAMS Facility:H1 Start: 08-16-[address] ОЛЬГА SCHMIDT Jr Facility:24 Start: 08-16-2022 Patient encounter procedure Hayden L Oberer Work Phone: [id number] [place] Work Phone: Start: 08-16-[address] ОЛЬГА SCHMIDT Jr Facility: Start: 07-19-2022 Postop follow up vis it related to original px Hayden L Oberer Work Phone: [facility] Work Phone: Start: 07-19-[address] ОЛЬГА SCHMIDT Jr Facility: Start: 07-13-2022 Rx Renewal Hayden L Oberer Work Phone: [facility] 250 DO Work Phone: Start: 07-12-2022 Chart Update Hayden L Oberer Work Phone: [facility] Work Phone: Start: 07-07-2022 End: 07-07-[address] Hayden Adams Facility:37 Start: 07-05-2022 ambulatory Mazin Sanford Facility: Start: 07-05-2022 Encounter for preprocedural cardiovascular examination [facility] Start: 07-05-2022 Encounter for preprocedural laboratory examination Ольга [facility] Start: 06-27-2022 Julita Owen Dept. of D ermatology Start: 06-27-2022 AUDIT Hayden L Oberer Work Phone: [facility] Work Phone: Start: 06-23-2022 Chart Update Hayden L Oberer Work Phone: [facility] Work Phone: Start: 06-16-[address] Desire Murcia Facili ty:[id number] Start: 06-07-2022 Rx Renewal Hayden L Oberer Work Phone: [facility] 250 DO Work Phone: Start: 03-15-2022 End: 03-15-2022 ambulatory Christopher Janes Other [facility] [employer] Other Start: 03-15-2022 Office outpatient vi sit 15 minutes Christopher Janes [facility] Start: 03-14-2022 End: 03-14-2022 ambulatory Hayden Oberer Other [facility] [employer] Other Start: 03-14-2022 Office outpatient vi sit 40 minutes Hayden Oberer [facility] [place] Start: 01-21-2022 ambulatory Hayden Joey Oberer Facilit y: Start: 01-19-2022 Office outpatient vi sit 10 minutes Hayden L Oberer Work Phone: [facility] 250 DO Work Phone: Start: 01-19-2022 ambulatory Hayden Joey Oberer Facilit y: Start: 01-04-2022 Patient encounter procedure Hayden L Oberer Work Phone: [facility] 250 DO Work Phone: Start: 01-04-2022 ambulatory Hayden Joey Oberer Facilit y: Start: 12-22-2021 Office outpatient vi sit 15 minutes Hayden L Oberer Work Phone: [facility] 250 DO Work Phone: Start: 12-22-2021 Patient encounter procedure Hayden L Oberer Work Phone: [facility] 250 DO Work Phone: Start: 12-22-2021 ambulatory Hayden Joey Oberer Facilit y: Start: 11-19-2021 End: 11-19-2021 ambulatory Hayden Oberer Other [employer] Other Start: 11-19-2021 Telephone encounter Hayden Oberer [facility] Start: 10-26-2021 End: 10-26-2021 ambulatory Crescencio Mendez Other [employer] Other Start: 10-26-2021 Patient encounter procedure Crescencio Mendez [facility] Gastroenterology Start: 10-25-2021 End: 10-25-2021 ambulatory Hayden Oberer Other [employer] Other Start: 10-25-2021 Telephone encounter Hayden Oberer [facility] Start: 09-20-2021 End: 09-20-2021 ambulatory Crescencio Mendez Other [employer] Other Start: 09-20-2021 Telephone encounter Crescencio Mendez [facility] Start: 09-13-2021 End: 09-13-2021 ambulatory Hayden Oberer Other [employer] Other Start: 09-13-2021 Office outpatient vi sit 25 minutes Hadyen Oberer [facility] Start: 06-01-2004 Evaluation and management of inpatient Ольга Barros Work Phone: [facility] Work Phone: Procedures Date Procedure Procedure Detail Performing Clinician Start: 01-19-2024 HOLTER OR EVENT CARD IAC MONITOR BUD CARLIN Start: 01-09-2024 NM HEART BLOOD POOL EJECTION FRACTION WALL MOTION (MUGA) BUD ROGERIO Start: 01-09-2024 Card blood pool gate d planar 1 study rest/stress Bud Dennis Rogerio SANDOVAL Work Phone: Start: 12-20-2023 Natriuretic peptide B [Mass/volume] in Blood BUD ROGERIO Start: 12-20-2023 Basic metabolic 2000 panel - Serum or Plasma BUD CAMILODON Start: 10-11-2023 History of coronary artery bypass grafting History of coronary artery bypass graft Bud Camilodon DO Work Phone: Start: 06-27-2022 Julita Fitoo n Appendectomy Hayden L Oberer Work Phone: Coronary artery bypa ss graft Hayden L Oberer Work Phone: Excision of melanoma Hayden L Oberer Work Phone: History of coronary artery bypass grafting History of coronary artery bypass graft Hayden L Oberer Work Phone: History of coronary artery bypass grafting History of coronary artery bypass graft Bud Camilodon DO Work Phone: Total colonoscopy Hayden L Obe rer Work Phone: Plan of Treatment Date Care Activity Detail Author Start: 04-02-2024 End: 04-02-2024 Patient encounter procedure 04/02/2024 1:40 PM EDT Office Visit [facility] [address] [place] [address] [address] [place] [address] Bud Carlin [facility] [address] [facility] [place] [address] [facility] Start: 01-19-2024 End: 01-19-2024 Professional / ancillary services management 01/19/2024 1:00 PM EST Ancillary Procedure [place] [address] [address] [facility] Start: 01-09-2024 End: 01-09-2024 Patient encounter procedure Jennifer [facility] Start: 12-20-2023 End: 12-20-2024 Basic metabolic 2000 panel - Serum or Plasma Basic Metabolic Panel Lab Routine Ischemic cardiomyopathy CHF (NYHA class II, ACC/AHA stage C) (CMS/HCC) Essential hypertension Expected: 12/20/2023 (Approximate), Expires: 12/20/2024 [facility] Work Phone: Comment on above: Expected: 12/20/2023 (Approximate), Expires: 12/20/2024 Start: 12-20-2023 End: 12-20-2024 Holter monitor study Holter Or Event Plant Maintenance Manager Cardiac Services Routine Bradycardia Expected: 12/20/2023, Expires: 12/20/2024 [facility] Service Area Work Phone: Comment on above: Expected: 12/20/2023 , Expires: 12/20/2024 Start: 12-20-2023 End: 12-20-2024 Natriuretic peptide B [Mass/volume] in Blood B-Type Natriuretic Peptide Lab Routine Ischemic cardiomyopathy CHF (NYHA class II, ACC/AHA stage C) (CMS/HCC) Essential hypertension Expected: 12/20/2023 (Approximate), Expires: 12/20/2024 [facility] Work Phone: Comment on above: Expected: 12/20/2023 (Approximate), Expires: 12/20/2024 Start: 12-20-2023 End: 12-20-2024 NM Heart Wall motion and Ejection fraction NM heart blood pool ejection fraction wall motion (MUGA) Imaging Routine Ischemic cardiomyopathy CHF (NYHA class II, ACC/AHA stage C) (CMS/HCC) Expected: 12/20/2023, Expires: 12/20/2024 [facility] Work Phone: Comment on above: Expected: 12/20/2023 , Expires: 12/20/2024 Start: 12-20-2023 FUV, Provider: Bud Carlin, Status: Pen, Time: 10:50 AM FUV, Provider: Bud Carlin, Status: Pen, Time: 10:50 AM [facility] [facility] DO Work Phone: Start: 07-14-2023 COVID-19 Vaccine ( season) COVID-19 Vaccine () [facility] Start: 07-14-2023 Influenza vaccination Influenza Vacc ine (#1) [facility] Start: 07-05-2023 Creatinine measurement Creatinine [facility] Start: 07-05-2023 Potassium measurement Potassium Leve l [facility] Start: 12-14-2022 FUV, Provider: Bud Carlin, Status: Pen, Time: 11:20 AM FUV, Provider: Bud Carlin, Status: Pen, Time: 11:20 AM [facility] 250 DO Work Phone: Start: 09-06-2022 FUV, Provider: Ольга Brown, Status: Pen, Time: 12:40 PM FUV, Provider: Ольга Brown, Status: Pen, Time: 12:40 PM [facility] [address] Work Phone: Start: 07-19-2022 POV, Provider: Ольга Brown, Status: Pen, Time: 12:20 PM POV, Provider: Оьлга Brown, Status: Pen, Time: 12:20 PM [facility] 250 DO Work Phone: Start: 07-19-2022 POV, Provider: Ольга Brown, Status: Pen, Time: 11:20 AM POV, Provider: Ольга Brown, Status: Pen, Time: 11:20 AM [facility] Work Phone: Start: 07-07-2022 [facility], Provider: Ольга Brown, Status: Pen, Time: 4:00 PM [facility], Provider: Ольга Brown, Status: Pen, Time: 4:00 PM [facility] Work Phone: Start: 07-05-2022 NPV, Provider: Ольга Brown, Status: Pen, Time: 12:00 PM NPV, Provider: Ольга Brown, Status: Pen, Time: 12:00 PM [facility] Work Phone: Start: 06-08-2022 FUV, Provider: Yaritza Beard, Status: Pen, Time: 1:00 PM FUV, Provider: Yaritza Beard, Status: Pen, Time: 1:00 PM [facility] DO Work Phone: Start: 01-19-2022 FUV, Provider: Yaritza Beard, Status: Pen, Time: 11:00 AM FUV, Provider: Yaritza Beard, Status: Pen, Time: 11:00 AM [facility] 250 DO Work Phone: Start: 12-31-2021 HOLTER MON, Provider : DANIEL WOLF LABEL PINKER 1,[id number], Status: Pen, Time: 11:00 AM HOLTER MON, Provider: DANIEL WOLF LABEL PINKER 1,[id number], Status: Pen, Time: 11:00 AM [facility] DO Work Phone: Start: 1994 Zoster Vaccines (1 of 2) Zoste r Vaccines (1 of 2) [facility] Start: 1966 DTaP/Tdap/Td Vaccine s (1 - Tdap) DTaP/Tdap/Td Vaccines (1 - Tdap) [facility] Start: 1962 Diabetes mellitus screening Diabetes Screening [facility] Start: 1962 Hepatitis C screening Hepatitis C Sc [facility] Start: 1944 Examination of skin Derm Melan janett Skin Check [facility] Start: 1944 Echocardiography Echocardiogram [facility] Start: 1944 Lipid panel Lipid Panel [facility] Start: 1944 Medicare Annual Well ness Visit Medicare Annual Wellness Visit (AWV) [facility] Patient Education Anemia caused by low iron [facility] Work Phone: [facility] Immunizations Immunization Date Immunization Notes Care Provider Fa danielle 02-10-2021 COVID-19 Vaccine Pfizer - Documentation Purposes Only Hayden Oberer Other [facility] 01-20-2021 COVID-19 Vaccine Pfizer - Documentation Purposes Only Hayden Oberer Other [facility] 09-13-2019 influenza, injectable, quadrivalent, preservative free Hayden Oberer Other [facility] 09-13-2019 influenza virus vaccine, unspecified formulation Bud Rogerio DO Work Phone: [facility] Work Phone: 08-13-2019 influenza virus vaccine, unspecified formulation Hayden L Oberer Work Phone: [facility] 250 DO Work Phone: 09-20-2018 influenza, seasonal, injectable Hayden Oberer Other [facility] 08-13-2018 influenza virus vaccine, unspecified formulation Hayden L Oberer Work Phone: [facility] 250 DO Work Phone: 03-12-2018 pneumococcal conjugate vaccine, 13 valent Hayden Oberer Other [employer] Other 08-09-2016 influenza, injectable, quadrivalent, preservative free Hayden Oberer Other [facility] 01-15-2016 pneumococcal polysaccharide vaccine, 23 valent Hayden Oberer Other [employer] Other 08-10-2015 influenza, seasonal, injectable Hayden Oberer Other [facility] 11-13-2014 pneumococcal polysaccharide vaccine, 23 valent Hayden L Oberer Work Phone: [facility] 250 DO Work Phone: 08-18-2014 influenza, seasonal, injectable Hayden Oberer Other [facility] 08-27-2012 influenza, seasonal, injectable Hayden Oberer Other [facility] 09-01-2010 influenza, seasonal, injectable Hayden Oberer Other [facility] 09-22-2005 influenza, seasonal, injectable Hayden L Oberer Work Phone: [facility] 250 DO Work Phone: 1945 pneumococcal conjugate vaccine, 7 valent Julita Owen Dept. of Dermatology NEGATED: Highlighted row has not occurred! 1 influenza, seasonal, injectable Patient Objection Hayden Oberer Other [facility] NEGATED: Highlighted row has not occurred! 0 influenza, seasonal, injectable Patient Objection Hayden Oberer Other [facility] Payers Date Payer Category Payer Medicare [facility] MEDICARE [employer] MEDICARE [id number] 2023-Present [address] [place] [address] [id number] 2023 Medicare [id number] 2022 Medicare [id number] [id number] 1959 Medicare [id number] 1959 Private Health Insurance [id number] 1944 Unknown [id number] 2.16.840.1.502028.3.579.2. 356 1944 Unknown [id number] 2.16.840.1.528319.3.579.2. 356 1944 Unknown [id number] 2.16.840.1.341792.3.579.2. 356 1944 Unknown [id number] 2.16.840.1.109895.3.579.2. 356 1944 Unknown [id number] 2.16.840.1.094150.3.579.2. 1944 Unknown [id number] 2.16.840.1.606385.3.579.2. 356 1944 Unknown [id number] 2.16.840.1.381866.3.579.2. 356 1944 Unknown [id number] 2.16.840.1.013523.3.579.2. 1944 Unknown [id number] 2.840.1.304014.3.579.2. 1944 Unknown [id number] 2.16840.1.804992.3.579.2. 356 1944 Unknown [id number] 2.16840.1.659056.3.579.2. 356 1944 Unknown [id number] 2.840.1.714349.3.579.2. 356 1944 Unknown [id number] 2.840.1.536299.3.579.2. 1068 1944 Unknown [id number] 2.16840.1.849932.3.579.2. 1069 1944 Unknown [id number] 2.16840.1.223717.3.579.2. 1069 1944 Unknown [id number] 2.16.840.1.430645.3.579.2. 593 1944 Unknown [id number] 2.16.840.1.172106.3.579.2. 593 1944 Unknown [id number] 2.16.840.1.364363.3.579.2. 1246 1944 Unknown [id number] 2.16.840.1.310276.3.579.2. 1246 1944 Unknown [id number] 2.16.840.1.477396.3.579.2. 1244 1944 Unknown [id number] 2.16.840.1.066396.3.579.2. 1244 Medicare [id number] 2.16.840.1.044645.19 Medicare [id number] 2.16.840.1.876994.19 Medicare Medicare Outpatient [id number] 0A [id number] Private Health Insurance [id number] Self-pay Self Pay [id number] Unknown [employer] Unknown [facility] [id number] Social History Date Type Detail Facility Start: 10-11-2023 End: 12-20-[address] C[address]ine use Caffeine use [facility] 250 DO Work Phone: Comment on above: COFFEE 2 CUPS DAILY; QUIT IN THE 80'S; Start: 10-11-2023 End: 12-20-2023 Sex Assigned At [facility] [employer] Other Start: 06-27-2022 Dept. of D ermatology Start: 1945 Sex Assigned At Male [facility] Start: 04-08-2020 End: 10-11-2023 Tobacco smoking status NHIS Ex-smoker [facility] Work Phone: History of tobacco use Current smoker [facility] Work Phone: History of tobacco use Cigarette Smoker [facility] Work Phone: Start: 10-11-2023 Tobacco use and exposure Smokeless tobacco non-user [facility] Work Phone: Start: 12-20-2023 Alcohol intake Lifetime non-d milana (finding) [facility] Work Phone: Start: 1945 Sex Assigned At [facility] file [facility] Work Phone: Start: 12-10-2023 End: 01-09-2024 Exposure to SARS-CoV-2 (event) Not sure [facility] Goals Date Patient Goal Desired Activity /State Clinical Notes 09-13-2021 to 12-20-2023 Bud Carlin, DO - 12/20/2023 2:30 PM ESTPatient Instructions Note Date & Type Note Facility 12-20-2023 History of Present illness Narrative Subjective Junior Torres is a 78 y.o. male Chief Complaint Annual Exam 78-year-old gentleman returns for follow-up and has increased episodes of exertional dyspnea, dizziness and lightheadedness currently on appropriate tolerable GDMT for severe ischemic cardiomyopathy with improved left ventricular function last measured several years ago with ejection fraction improved to 50%. He has severe three-vessel ASHD ;, continue to follow and for ischemic cardiomyopathy, remote three-vessel CABG with known occluded grafts x3 and subsequent PCI of the LAD x2 drug-eluting stents. Last heart catheterization 2018 revealed the above anatomy with known occlusions of the lower [place] RCA and circumflex, patent LAD and stents and patent ramus branch at that time with moderate left ventricular dysfunction, improved on Entresto therapy and guideline directed medical therapies with subsequent MUGA scan revealing ejection fraction of 51% 1 year later and May 2020. Patient underwent work-up, and treatment and surgical intervention for melanoma of the left upper back details of which are reviewed, without complications or cardiovascular events. He has underlying history of [place] Heart Association class II/C heart failure, COPD, essential hypertension, former smoker, hyperlipidemia, the above-mentioned melanoma with excision, PCI LAD, ischemic cardiomyopathy with improved LV function. He is mildly orthostatic on today's blood pressures, he denies angina or hospitalizations or edema or nitrate usage. Recommendations: Decrease Entresto to 24/26 mg twice daily, obtain 24-hour Holter monitor, MUGA scan to reassess left ventricular function, renal profile and BNP, follow-up with nurse practitioner in 3 months with myself within the next 6 months. Review of Systems Cardiovascular: Positive for dyspnea on exertion. Neurological: Positive for dizziness and light-headedness. Visit Vitals BP 120/62 (BP Location: Left arm, Patient Position: Sitting) Pulse 50 Ht 1.778 m (5' 10 ) Wt 80.7 kg (178 lb) BMI 25.54 kg/m Smoking Status Former BSA 2 m Objective Physical Exam Constitutional: Appearance: Normal appearance. He is normal weight. HENT: Nose: Nose normal. Neck: Vascular: No carotid bruit. Cardiovascular: Rate and Rhythm: Normal rate. Pulses: Normal pulses. Heart sounds: Normal heart sounds. Pulmonary: Effort: Pulmonary effort is normal. Abdominal: General: Bowel sounds are normal. Palpations: Abdomen is soft. Genitourinary: Rectum: Normal. Musculoskeletal: General: Normal range of motion. Cervical back: Normal range of motion. Right lower leg: No edema. Left lower leg: No edema. Skin: General: Skin is warm and dry. Neurological: General: No focal deficit present. Mental Status: He is alert. Psychiatric: Mood and Affect: Mood normal. Behavior: Behavior normal. Thought Content: Thought content normal. Judgment: Judgment normal. Current Medications Current Outpatient Medications: allopurinol (Zyloprim) 300 mg tablet, Take 1 tablet (300 mg) by mouth once daily., Disp: , Rfl: aspirin 81 mg EC tablet, Take 1 tablet (81 mg) by mouth once daily., Disp: , Rfl: carvedilol (Coreg) 12.5 mg tablet, Take 1 tablet (12.5 mg) by mouth 2 times a day., Disp: 180 tablet, Rfl: 3 colchicine 0.6 mg tablet, Take 1 tablet (0.6 mg) by mouth once daily. As needed for gout flare, Disp: , Rfl: ferrous sulfate, 325 mg ferrous sulfate, tablet, Take 1 tablet by mouth once daily with breakfast., Disp: , Rfl: fluticasone (Flonase) 50 mcg/actuation nasal spray, Administer 2 sprays into each nostril once daily., Disp: , Rfl: isosorbide mononitrate ER (Imdur) 30 mg 24 hr tablet, Take 1 tablet (30 mg) by mouth once daily., Disp: 90 tablet, Rfl: 3 levalbuterol (Xopenex) 45 mcg/actuation inhaler, Inhale 1-2 puffs every 6 hours if needed., Disp: , Rfl: loperamide (Imodium) 2 mg capsule, Take 1 capsule (2 mg) by mouth once daily., Disp: , Rfl: nitroglycerin (Nitrostat) 0.4 mg SL tablet, Place 1 tablet (0.4 mg) under the tongue every 5 minutes if needed., Disp: , Rfl: pravastatin (Pravachol) 80 mg tablet, Take 1 tablet (80 mg) by mouth once daily., Disp: , Rfl: Assessment/Plan 1. Atherosclerosis of coronary artery of lower [place] heart without angina pectoris, unspecified vessel or lesion type 2. Status post angioplasty 3. Ischemic cardiomyopathy 4. CHF (NYHA class II, ACC/AHA stage C) ([facility] 5. History of coronary artery bypass graft 6. Essential hypertension 7. Hyperlipidemia, unspecified hyperlipidemia type 8. Bradycardia 9. Former smoker Scribe Attestation By signing my name below, Ryann Caldwell LPN , Scribe attest that this documentation has been prepared under the direction and in the presence of Bud Carlin DO. documented in this encounter [facility] Work Phone: 12-20-2023 Instructions Francesca Knox RN - 12/20/2023 2:30 PM EST Please bring all medicines, vitamins, and herbal supplements with you when you come to the office. Prescriptions will not be filled unless you are compliant with your follow up appointments or have a follow up appointment scheduled as per instruction of your physician. Refills should be requested at the time of your visit. documented in this encounter [facility] Work Phone: 10-20-2023 Evaluation note Encounter Date Diagnosis Assessment Notes Oct, Iron deficiency (ICD-10 - E61.1) [employer] Other 12-05-2023 Evaluation note* Encounter Date Diagnosis Assessment Notes Treatment Notes Treatment Clinical Notes Oct, Iron deficiency (ICD-10 - E61.1) [employer] Other 11-20-2023 Evaluation note* Encounter Date Diagnosis Assessment Notes Treatment Notes Treatment Clinical Notes Sep, Iron deficiency (ICD-10 - E61.1) [employer] Other 11-01-2023 Evaluation note* Encounter Date Diagnosis Assessment Notes Treatment Notes Treatment Clinical Notes Sep, Allergic rhinitis (ICD-10 - J30.9) [employer] Other 06-19-2023 Evaluation note* Encounter Date Diagnosis Assessment Notes Treatment Notes Treatment Clinical Notes Apr, Gout (ICD-10 - M10.9) [employer] Other 05-02-2023 Evaluation note* Encounter Date Diagnosis Assessment Notes Treatment Notes Treatment Clinical Notes March, Cough (ICD-10 - R05) March, Allergic rhinitis (ICD-10 - J30.9) March, Hiatal hernia (ICD-10 - K44.9) March, GERD (gastroesophageal reflux disease) (ICD-10 - K21.9) [employer] Other 05-02-2023 Evaluation note* Encounter Date Diagnosis Assessment Notes Treatment Notes Treatment Clinical Notes March, Iron deficiency (ICD-10 - E61.1) We discussed his borderline iron deficiency, borderline anemia. I do not think he needs colonoscopy, he had one 2020 and is followed by Dr. Mendez. We will begin ferrous sulfate 325 mg daily with food and recheck iron labs and CBC next visit. Discussed the constipating side effects of iron may actually help his long-term colitis diarrhea. March, Macrocytic anemia (ICD-10 - D53.9) See dictation above. His B12 is normal March, Gout (ICD-10 - M10.9) Stable with allopurinol prophylaxis March, Mixed hyperlipidemia (ICD-10 - E78.2) Stable, appropriate statin dose March, Essential (primary) hypertension (ICD-10 - I10) Stable on current meds March, CAD (coronary artery disease) (ICD-10 - I25.10) Clinically stable, continue with NOHC March, Renal insufficiency (ICD-10 - N28.9) Stable at baseline. Discussed mild, will monitor March, Encounter for long-term (current) use of medications (ICD-10 - Z79.899) March, Presbycusis of both ears (ICD-10 - H91.13) I simply note this on exam. He is functional March, Peripheral polyneuropathy (ICD-10 - G62.9) We will need to discuss diabetic foot exams next visit March, Generalized OA (ICD-10 - M15.9) We discussed chronicity of OA. His is wanting him to take more pain medication than he is feeling he needs. Discussed he should listen to his body. There is room to take Advil up to 800 mg 3 times daily if he feels he needs to raise the dose higher. If he does not do well, discussed we could consider prescription nonsteroidal. He was leaning toward continuing occasional as needed use March, Microscopic colitis (ICD-10 - K52.89) Continue with Dr. Mendez March, History of colon polyps (ICD-10 - Z86.010) See dictation above. We will wait to see whether Dr. Mendez recommends 5-year colonoscopy in 2024 at his age. March, Chronic cough (ICD-10 - R05) Stable on Flonase. We will be happy to assume refilling it and he will follow-up with Dr. Marrero as needed March, Allergic rhinitis (ICD-10 - J30.9) See dictation above March, Type 2 diabetes mellitus without complication, without long-term current use of insulin (ICD-10 - E11.9) We again discussed we are being conservative at his age. Even without sugar medication his hemoglobin A1c is excellent. He is on a statin and Entresto March, Wellness examination (ICD-10 - Z00.00) Well care discussedSee wellness templateRecommended the bivalent COVID booster and Shingrix. After that vaccines will be [id number] at his age no cancer screening is recommended unless Dr. Mendez wants to continue every 5 year colonoscopy because of history of polyps at his age. Currently [id number] told my medical donation professional he did not want me to bring up or discuss advanced directives I gave him a handwritten summary of the above recommendations March, Other RTO 6 months pr eceded by fasting CBC, BMP, hepatic panel, lipid profile, hemoglobin A1c, iron, TIBC, ferritin, reticulocyte count and sooner as needed. I completed a full lab panel because of medical complexity. [facility] Other 03-08-2023 Evaluation note* Encounter Date Diagnosis Assessment Notes Treatment Notes Treatment Clinical Notes Jan, Microscopic colitis (ICD-10 - K52.89) patient is currently taking the loperamide, states that he is doing well on it. patient can increase to two pills daily with still having the diarrhea symptoms. can proceed with flex-sig to evaluate microscopic colitis, if patient wishes. Jan, Diarrhea (ICD-10 - R19.7) patient is having loose/watery bowel movements any time he eats. [facility] Other 11-07-2022 Evaluation note* Encounter Date Diagnosis Assessment Notes Treatment Notes Treatment Clinical Notes Sep, Gout (ICD-10 - M10.9) Sep, Mixed hyperlipidemia (ICD-10 - E78.2) [facility] Other 11-01-2022 Evaluation note* Encounter Date Diagnosis Assessment Notes Treatment Notes Treatment Clinical Notes Sep, Type 2 diabetes mellitus without complication, without long-term current use of insulin (ICD-10 - E11.9) We discussed that by hemoglobin A1c standards he has transitioned from impaired glucose tolerance to gt type 2 diabetes. Because of his age of onset, lack of symptoms, we are going to be very conservative and I will only start diabetic medication if he becomes symptomatic. He is already on a statin and Entresto. Sep, Gout (ICD-10 - M10.9) Stable on current allopurinol dose. We will check hemoglobin A1c next visit Sep, Mixed hyperlipidemia (ICD-10 - E78.2) Stable, appropriate statin dose Sep, Essential (primary) hypertension (ICD-10 - I10) Stable on current meds. Although his BP is above 130/80 goal today, he was previously orthostatic and I do not think we should intensify BP medications. [facility] is managing his hypertension. Sep, CAD (coronary artery disease) (ICD-10 - I25.10) Clinically stable. Continue with [facility] Sep, Asthma (ICD-10 - J45.909) Stable without medication. Continue with Dr. Marrero for his chronic cough Sep, Acid reflux (ICD-10 - K21.9) Stable without medication. Sep, Renal insufficiency (ICD-10 - N28.9) We discussed his mild renal insufficiency. We will continue to follow and be conservative as long as things remain stable. He already is on Entresto. Sep, Encounter for long-term (current) use of medications (ICD-10 - Z79.899) Sep, Presbycusis of both ears (ICD-10 - H91.13) We communicated well today. Per previous notes, he does not want to consider a hearing aid Sep, Peripheral polyneuropathy (ICD-10 - G62.9) This diagnosis preceded his today diagnosis of type 2 diabetes. Observe. We will need to pursue future diabetic foot exams Sep, Generalized OA (ICD-10 - M15.9) We did not discuss this today, I simply noted on exam, stable without treatment Sep, History of colon polyps (ICD-10 - Z86.010) He is going to call Dr. Mendez to schedule his yearly follow-up Sep, Ischemic cardiomyopathy (ICD-10 - I25.5) Continue with [facility]. See dictation above Sep, Microscopic colitis (ICD-10 - K52.89) Continue with Dr. Mendez as above Sep, Chronic cough (ICD-1 0 - R05) Stable, continue with Dr. Marrero Sep, Counseled about COVID-19 virus infection (ICD-10 - Z71.89) I did discuss the rationale for the bivalent COVID-vaccine. He told me upfront he did not want any further vaccines and did not change his mind during our conversation. He is aware that the vaccine is available readily if he elects to get it. He also did not want the flu shot today. Sep, Macrocytic anemia (ICD-10 - D53.9) He has mild macrocytic anemia which is near normal for both hemoglobin and RBC cell size. His iron is borderline low which is not consistent with macrocytic. He is close enough to normal that we will observe and I will obtain the B12 next visit that I want at this visit along with repeating iron. Sep, Allergic rhinitis (ICD-10 - J30.9) Sep, Other RTO 6 months preceded by fasting CBC, BMP, hepatic panel, lipid profile, hemoglobin A1c, iron, B12 and sooner as needed. [facility] Other 08-25-2022 NotePROCEDURE DETAILS Preoperative Diagnosis: Melanoma left upper back Postoperative Diagnosis: Melanoma left upper back Surgeon: Ольга Brown Resident/Fellow/Other Golf Course Designer: Lavelle Foley Procedure: 1. WIDE LOCAL EXCISION OF UPPER BACK 2. SENTINEL LYMPH NODE BIOPSY Anesthesia: No anesthesiologist associated with this case Estimated Blood Loss: 20 Findings: 1 sentinel node Specimens(s) Collected: yes, Wide local excision back short superior long lateral 4 x 12, 1 sentinel node Operative Report: Indications for surgery: The patient was recently diagnosed with a 2 mm melanoma of the left upper back with a positive deep margin. After discussing the risks and benefits of wide local excision with sentinel lymph node biopsy the patient elected to proceed. Details of procedure: The patient arrived at [facility] on 07/07/2022 for the aforementioned procedure. Consent was obtained, history and physical performed, and questions were answered. The patient was moved into the operating room and induced under anesthesia. A timeout was performed prior to surgery. For the wide local excision, the back was prepped and draped in the usual sterile fashion. A 2 cm margin was drawn about the lesion and this was extended into a 3:1 elliptical incision along natural body lines to facilitate a tension-free closure. Local anesthetic was injected and an incision was made along this ellipse. Electrocautery was used to dissected down to the muscular fascia and the specimen was then removed and marked with a short stitch superior and a long stitch lateral with a final dimension of 4 x 12 cm. This was sent for permanent pathology. Circumferential soft tissue flaps were created to facilitate closure. The wound was irrigated and hemostasis was achieved. The wound was then closed in a complex multilayer fashion using deep 2-0 Vicryl [id number], interrupted 3-0 Vicryl deep dermals, and a running subcuticular 4-0 Monocryl suture. The skin was dressed with Dermabond. For the sentinel lymph node biopsy, the left axilla was prepped and draped in the usual sterile fashion after verifying radiotracer presence in this basin with the neoprobe. A 3 cm incision was made over the radioactivity and dissection was carried out with electrocautery to identify the sentinel node. This was removed using clips and suture as needed to control blood vessels and lymphatics. A total of 1 lymph node was obtained and sent for permanent pathology. The wound was then irrigated and hemostasis achieved. This was closed in a multilayer fashion using interrupted deep 3-0 Vicryl in a running subcuticular 4-0 Monocryl. The skin was dressed with Dermabond. The patient was awoken and returned to the PACU in anticipation of discharge home. I was present scrubbed and directed all operative decision-making. Note Recipients: Mazin Andre Synoptic Op Report: Primary Cutaneous Melanoma Operation performed with curative intent: yes 2.0 mm Clinical margin width: 2 cm Depth of excision: full-thickness skin/subcutaneous tissue down to fascia (melanoma) Electronic Signatures: Ольга Brown) (Signed 07-Jul-2022 18:00) Authored: Post-Operative Note, Chart Review, Note Completion Last Updated: 07-Jul-2022 18:00 by Ольга Brown)[facility] 07-07-2022 NoteHistory & Physical Reviewed: I have reviewed the History and Physical dated: 15-Jun-2022 History and Physical reviewed and relevant findings noted. Patient examined to review pertinent physical findings.: No significant changes Home Medications Reviewed: no changes noted Allergies Reviewed: no changes noted ERAS (Enhanced Recovery After Surgery): ERAS Patient: no Consent: COVID-19 Consent: COVID-19 Risk ConsentSurgeon has reviewed silva risks related to the risk of mega COVID-19 and if they contract COVID-19 what the risks are. Attestation: Note Completion: I am a: Resident/Fellow Attending AttestationI saw and evaluated the patient. I personally obtained the silva and critical portions of the history and physical exam or was physically present for silva and critical portions performed by the resident/fellow. I reviewed the resident/fellows documentation and discussed the patient with the resident/fellow. I agree with the resident/fellows medical decision making as documented in the note. I personally evaluated the patient [id number] Electronic Signatures: Ольга Brown) (Signed 08-Jul-2022 16:56) Authored: Note Completion Co-Signer: History & Physical Reviewed, ERAS, Consent, Note Completion Lavelle Foley (Resident)) (Signed 07-Jul-2022 15:37) Authored: History & Physical Reviewed, ERAS, Consent, Note Completion Last Updated: 08-Jul-2022 16:56 by Ольга Brown)[facility] 07-07-2022 History of Present illness NarrativeMrSunni Torres is a wonderful 77-year-old man referred by Mazin Sanford for 2 mm back melanoma. On 07/07/2022 he underwent wide local excision and sentinel lymph node biopsy. He had a wound infection. It was managed with Bactrim and has completely resolved. His lymph node was negative and there was nomelanoma in his specimen. However, there was a moderately dysplastic compound nevus at the peripheral margin and multiple dermal nevi located at the mid superior margin.[facility] Work Phone: 1(499) 285-539808-25-2022 History of Present illness NarrativeMrSunni Torres is a wonderful 77-year-old man referred by Mazin Sanford for 2 mm back melanoma. On 07/07/2022 he underwent wide local excision and sentinel lymph node biopsy. He had a wound infection. It was managed with Bactrim and has completely resolved. His lymph node was negative and there was nomelanoma in his specimen. However, there was a moderately dysplastic compound nevus at the peripheral margin and multiple dermal nevi located at the mid superior margin. He underwent reexcision 3 weeks ago and has healed well. Margins were clean and there was no melanoma in the specimen.[place] [address] Work Phone: 1(204) 631-820305-03-2022 Evaluation note* Encounter Date Diagnosis Assessment Notes Treatment Notes Treatment Clinical Notes March, Cough (ICD-10 - R05) March, Allergic rhinitis (ICD-10 - J30.9) March, Hiatal hernia (ICD-10 - K44.9) March, GERD (gastroesophageal reflux disease) (ICD-10 - K21.9) [facility] Other 05-02-2022 Evaluation note* Encounter Date Diagnosis Assessment Notes Treatment Notes Treatment Clinical Notes March, Ventral hernia without obstruction or gangrene (ICD-10 - K43.9) Probably asymptomatic lower ventral epigastric incisional hernia. Worrisome symptoms discussed. Observe March, Hiatal hernia (ICD-1 0 - K44.9) Probably mildly symptomatic. Healthy diet encouraged. Discussed he could take OTC antacid as needed. If he does not do well we can rework this up including send him back to Dr. Mendez to discuss March, Gout (ICD-10 - M10.9) He had a recent flare trigger unclear. Watch for triggers if he gets further attacks. Continue current allopurinol prophylactic dose March, Mixed hyperlipidemia (ICD-10 - E78.2) Stable, appropriate statin dose March, Essential (primary) hypertension (ICD-10 - I10) His BP is high today. As above, Dr. Carlin is managing his BP and recently decreased his carvedilol because of orthostasis. March, CAD (coronary artery disease) (ICD-10 - I25.10) See dictation above. Continue with [facility] March, Asthma (ICD-10 - J45.909) His asthma/chronic cough is stable. Continue yearly visit with Dr. Marrero. Currently untreated March, Renal insufficiency (ICD-10 - N28.9) Stable, longstanding. He saw nephrology years ago. We will continue to observe as long as things look stable. He is on Entresto which should give some renal protection March, Encounter for long-term (current) use of medications (ICD-10 - Z79.899) March, Presbycusis of both ears (ICD-10 - H91.13) I offered audiology referral to consider hearing aids. He declined. He will call if he changes his mind. March, Generalized OA (ICD-10 - M15.9) Stable likely optimal baseline. I simply noted this on exam today, currently untreated March, Ischemic cardiomyopathy (ICD-10 - I25.5) Continue with [facility] March, Impaired glucose tolerance (ICD-10 - R73.02) Healthy diet and weight encouraged. Risk of diabetes discussed. At his age, I would be conservative if he would become diabetic if not symptomatic March, Macrocytic anemia (ICD-10 - D53.9) This is mild. I will check B12 level, folate, iron next visit. March, Other RTO 6 months preceded by fasting CBC, BMP, lipid profile, hemoglobin A1c, B12, folate, iron and sooner as needed [facility] Other 12-14-2021 Evaluation note* Encounter Date Diagnosis Assessment Notes Treatment Notes Treatment Clinical Notes Oct, Diarrhea (ICD-10 - R19.7) Continue Imodium every morning. Follow up in 1 year Oct, Microscopic colitis (ICD-10 - K52.89) [facility] Other 11-08-2021 Evaluation note* Encounter Date Diagnosis Assessment Notes Treatment Notes Treatment Clinical Notes Sep, Asthma (ICD-10 - J45.909) [facility] Other 11-01-2021 Evaluation note* Encounter Date Diagnosis Assessment Notes Treatment Notes Treatment Clinical Notes Sep, Counseled about COVID-19 virus infection (ICD-10 - Z71.89) I did recommend he get the [employer] Covid booster. We did discuss that a vaccine is not a guarantee that the disease cannot happen but it does make it less likely and less likely to be severe. We discussed there are always breakthrough infections and that the severity of them may depend on other medical problems that the person has. With his heart disease, asthma, he would be high risk and discussed that is even more reason to get the booster. He listened but did not commit. He knows it is now readily available if he elects to do so. Sep, Gout (ICD-10 - M10.9) Stable on allopurinol prophylaxis Sep, Mixed hyperlipidemia (ICD-10 - E78.2) Stable, appropriate statin dose Sep, Essential (primary) hypertension (ICD-10 - I10) Stable on current meds Sep, CAD (coronary artery disease) (ICD-10 - I25.10) Stable on current meds. Continue with [facility] Sep, Asthma (ICD-10 - J45.909) Because he did not tolerate albuterol, discussed there is no great alternative to Xopenex HFA inhaler for rescue treatment. I encouraged him to call Dr. Marrero's office to see if they might have a sample. Sep, Acid reflux (ICD-10 - K21.9) Stable at chronic baseline. Currently untreated Sep, Renal insufficiency (ICD-10 - N28.9) Stable. Per previous notes, we are trying to walk for balance beam between effective treatment of his nonischemic cardiomyopathy and renal function. Sep, Encounter for long-term (current) use of medications (ICD-10 - Z79.899) Sep, Generalized OA (ICD-10 - M15.9) He did not complain of arthritis pain today. I simply noted this on exam. Sep, Ischemic cardiomyopathy (ICD-10 - I25.5) Continue with [facility], clinically stable Sep, Diarrhea (ICD-10 - R19.7) Stable, continue with [facility] gastroenterology Sep, Microscopic colitis (ICD-10 - K52.89) See dictation above Sep, Chronic cough (ICD-10 - R05) Stable likely optimal baseline. Continue with Dr. Marrero Sep, Impaired fasting glucose (ICD-10 - R73.01) We will check hemoglobin A1c next visit Sep, Urinary tract infection symptoms (ICD-10 - R39.9) Sep, Other Allopurinol material was printed RTO 6 months preceded by fasting CBC, BMP, hepatic panel, lipid profile, hemoglobin A1c, uric acid and sooner as needed. I repeated full lab panel because of his medical complexity. [employer] Other Evaluation noteNo InformationNort [place] Other Evaluation noteN/ADept. of Dermatology Evaluation note* Diagnosis Atherosclerosis of coronary artery of [place] heart without angina pectoris, unspecified vessel or lesion type Status post angioplasty Postsurgical percutaneous transluminal coronary angioplasty status Ischemic cardiomyopathy Other specified forms of chronic ischemic heart disease CHF (NYHA class II, ACC/AHA stage C) ([facility]/HCC) Congestive heart failure, unspecified History of coronary artery bypass graft Postsurgical aortocoronary bypass status Essential hypertension Unspecified essential hypertension Hyperlipidemia, unspecified hyperlipidemia type Bradycardia Other specified cardiac dysrhythmias Former smoker Personal history of tobacco use, presenting hazards to health documented in this encounter [facility] Work Phone: Evaluation note* Diagnosis Ischemic cardiomyopathy Other specified forms of chronic ischemic heart disease CHF (NYHA class II, ACC/AHA stage C) (CMS/HCC) Congestive heart failure, unspecified documented in this encounter [facility] Work Phone: Evaluation noteNo assessment information available [facility] Work Phone: Evaluation note* Diagnosis Onset Date Resolution Status Asthma acute Chronic insomnia noneactive Peripheral neuropathy noneac tive Sinusitis noneactive Acute bronchitis noneactive Cold intolerance noneactive Iron deficiency noneactive [facility] Work Phone: History general Narrative - Reported* Type Description Date Medical History Gout-feet Medical History Increased cholesterol, mixed hyp erlipidemia Medical History Essential HTN-1989 Medical History CAD-1994 Medical History Malignant melanoma left chest-, Dr. De La Torre Medical History Asthma (PFT's)-2000 Medical History Osteoarthritis Right Shoulder, l eft hip-2003 Medical History Chronic renal insufficiency-2004 , Dr. De La Rosa Medical History CAD, ischemic cardio myopathy, 2019 cardiac catheterization, ejection fraction 40% Medical History allergic rhinitis Medical History Hiatal hernia Medical History Esophageal reflux Surgical History Appendectomy at age 12 Surgical [facility] - [facility] CABG (double bypass) 1994 Surgical History Right shoulder arthroscopy-Dr. Barros 05/2004 Surgical History Melanoma excision right cheek-Moises Sanford 05/2008 Surgical History Cardiac cath, angioplasty, sten t Dr. Winslow 05/2015 Surgical History Heart cath- multiple 100% blockage with 40% heart function 06/25/19 Surgical History Colonoscopy 05/07/19 Surgical History colonoscopy [facility] 06/2020 Hospitalization History Cardiolyte stress test - Dr. Lyn 1999 Hospitalization History Cardiac stress test (neg ) Dr. Blair 2002 Hospitalization History Cardiac stress test (neg ) Dr. Blair 02/2003 Hospitalization History Cardiolyte stress test-[place] ld [place] 02/2007 Hospitalization History Exercise myoview stress test (neg) NO 09/2009 Hospitalization History EGD (neg), colonoscopy-p olyp Dr. Shoemaker 10/2010 Hospitalization History Exercise stress test [facility] C 04/2014 [facility] Other History general Narrative - Reported* Type Description Date Medical History Gout-feet Medical History Increased cholesterol, mixed hyp erlipidemia Medical History Essential HTN-1989 Medical History CAD-1994 Medical History Malignant melanoma left chest-, Dr. De La Torre Medical History Asthma (PFT's)-2000 Medical History Osteoarthritis Right Shoulder, l eft hip-2003 Medical History Chronic renal insufficiency-2004 , Dr. De La Rosa Medical History CAD, ischemic cardio myopathy, 2019 cardiac catheterization, ejection fraction 40% Medical History allergic rhinitis Medical History Hiatal hernia Medical History Esophageal reflux Medical History Impaired glucose tolerance Medical History Ventral hernia without obstructi on or gangrene Surgical History Appendectomy at age 12 Surgical History Coronary angioplasty - Right coronary artery [facility] 1994 Surgical History CABG (double bypass) 1994 Surgical History Right shoulder arthroscopy-Dr. Barros 05/2004 Surgical History Melanoma excision right cheek-Moises Sanford 05/2008 Surgical History Cardiac cath, angioplasty, sten t Dr. Winslow 05/2015 Surgical History Heart cath- multiple 100% blockage with 40% heart function 06/25/19 Surgical History Colonoscopy 05/07/19 Surgical History colonoscopy [facility] 06/2020 Surgical History melanoma removed from shoulder 01/2022 Hospitalization History Cardiolyte stress test - Dr. Lyn 1999 Hospitalization History Cardiac stress test (neg ) Dr. Blair 2002 Hospitalization History Cardiac stress test (neg ) Dr. Blair 02/2003 Hospitalization History Cardiolyte stress test-[place] ld [place] 02/2007 Hospitalization History Exercise myoview stress test (neg) NO 09/2009 Hospitalization History EGD (neg), colonoscopy-p olyp Dr. Shoemaker 10/2010 Hospitalization History Exercise stress test NO C 04/2014 [facility] Other History general Narrative - Reported* Type Description Date Medical History Gout-feet Medical History Increased cholesterol, mixed hyp erlipidemia Medical History Essential HTN-1989 Medical History CAD-1994 Medical History Malignant melanoma left chest-, Dr. De La Torre Medical History Asthma (PFT's)-2000 Medical History Osteoarthritis Right Shoulder, l eft hip-2003 Medical History Chronic renal insufficiency-2004 , Dr. De La Rosa Medical History CAD, ischemic cardio myopathy, 2019 cardiac catheterization, ejection fraction 40% Medical History allergic rhinitis Medical History Hiatal hernia Medical History Esophageal reflux Medical History Impaired glucose tolerance Medical History Ventral hernia without obstructi on or gangrene Medical History Renal insufficiency Medical History Peripheral polyneuropathy Medical History Microscopic colitis Medical History Chronic cough Medical History Type 2 diabetes tamiko itus without complication, without long-term current use of insulin Surgical History Appendectomy at age 12 Surgical History Coronary angioplasty - Right coronary artery [facility] 1994 Surgical History CABG (double bypass) 1994 Surgical History Right shoulder arthroscopy-Dr. Barros 05/2004 Surgical History Melanoma excision right cheek-Moises Sanford 05/2008 Surgical History Cardiac cath, angioplasty, sten t Dr. Winslow 05/2015 Surgical History Heart cath- multiple 100% blockage with 40% heart function 06/25/19 Surgical History Colonoscopy 05/07/19 Surgical History colonoscopy [facility] 06/2020 Surgical History melanoma removed from shoulder 01/2022 Surgical History melanoma removed from back 08/14 022 Hospitalization History Cardiolyte stress test - Dr. Lyn 1999 Hospitalization History Cardiac stress test (neg ) Dr. Blair 2002 Hospitalization History Cardiac stress test (neg ) Dr. Blair 02/2003 Hospitalization History Cardiolyte stress test-O ld [place] 02/2007 Hospitalization History Exercise myoview stress test (neg) NO 09/2009 Hospitalization History EGD (neg), colonoscopy-p olyp Dr. Shoemaker 10/2010 Hospitalization History Exercise stress test [facility] 04/2014 [employer] Other History of Present illness Narrative* The patient presents for follow-up of essential hypertension. The patient states he has been doing well with his blood pressure control since the last visit. * Symptoms: stable impaired vision, denies dyspnea, denies chest pain, denies intermittent leg claudication and denies lower extremity edema. Associated symptoms include no headache. * Home monitoring: The patient checks his blood pressure sporadically. Blood pressure control has been poor. * Medications: the patient is adherent with his medication regimen. He denies medication side effects. [place] [id number] DO Work Phone: History of Present illness Narrative* The patient presents for follow-up of essential hypertension. The patient states he has been doing well with his blood pressure control since the last visit. * Symptoms: stable impaired vision, denies dyspnea, denies chest pain, denies intermittent leg claudication and denies lower extremity edema. Associated symptoms include no headache. * Home monitoring: The patient checks his blood pressure sporadically. Blood pressure control has been poor. * Medications: the patient is adherent with his medication regimen. He denies medication side effects. [place] [id number] [email or web address] Work Phone: History of Present illness Narrative* The patient states he has been generally doing well since the last visit. Comorbid Illnesses: hypertension and hyperlipidemia. * Symptoms: denies chest pain at rest, denies exertional chest pain, denies dyspnea, denies fatigue, stable exercise intolerance, denies palpitations, denies edema, denies orthopnea, resolved dizzinessand resolved orthostatic dizziness. * Associated symptoms: no syncope. * His symptoms do not limit his activities. * Disease Monitoring: * Medications: the patient is adherent with his medication regimen. He denies medication side effects. [place] [id number] [email or web address] Work Phone: Reason for referral (narrative)* Name Reason for referral [facility] Dept[facility] 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 [address] [facility] [address], [address] [address] Referral ID Status Reason Start Date Expiration Date V isits Requested Visits Authorized [id number] Authorized 12/20/2023 12/19/2024 1 1 * Imaging (Routine) - Pending Review Specialty Diagnoses / Procedures Referred By Kenia garcia Referred To Contact Radiology Diagnoses Ischemic cardiomyopathy CHF (NYHA class II, ACC/AHA stage C) ([facility]) Procedures NM heart blood pool ejection fraction wall motion (MUGA) Bud Carlin DO [address] [facility] [address], [address] [address] Referral ID Status Reason Start Date Expiration Date Visits Requested Visits Authorized [id number] Pending Review Perform Procedure 12/20/2023 12/19/2024 2 2 * Cardiovascular (Routine) - Pending Review Specialty Diagnoses / Procedures Referred By Kenia garcia Referred To Contact Cardiology Diagnoses Bradycardia 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 Bud Carlin DO [address] [facility] [address], [address] [address] Referral ID Status Reason Start Date Expiration Date V isits Requested Visits Authorized [id number] Pending Review 12/20/2023 12/19/2024 1 1 [facility] Work Phone: Summary Purpose Family History Unknown Family Member Name Dates Details Family history of renal fail ure: Mother(V18.69, Z84.1) Status:Active FH: diabetes mellitus: Brennon r(V18.0, Z83.3) Status:Active FHx: myocardial infarction: Father(V17.3, Z82.49) Status:Active Family history of cardiac pa cemaker: Brother(V17.49, Z82.49) Status:Active Unknown Family Member Name Dates Details Family history of renal fail ure: Mother(V18.69, Z84.1) Status:Active FH: diabetes mellitus: Mothe r(V18.0, Z83.3) Status:Active FHx: myocardial infarction: Father(V17.3, Z82.49) Status:Active Family history of cardiac pa cemaker: Brother(V17.49, Z82.49) Status:Active Unknown Family Member Name Dates Details Family history of renal fail ure: Mother(V18.69, Z84.1) Status:Active FH: diabetes mellitus: Mothe r(V18.0, Z83.3) Status:Active FHx: myocardial infarction: Father(V17.3, Z82.49) Status:Active Family history of cardiac pa cemaker: Brother(V17.49, Z82.49) Status:Active Unknown Family Member Name Dates Details Family history of cardiac pa cemaker: Brother(V17.49, Z82.49) Status:Active FHx: myocardial infarction: Father(V17.3, Z82.49) Status:Active FH: diabetes mellitus: Mothe r(V18.0, Z83.3) Status:Active Family history of renal fail ure: Mother(V18.69, Z84.1) Status:Active Unknown Family Member Name Dates Details Family history of renal fail ure: Mother(V18.69, Z84.1) Status:Active FH: diabetes mellitus: Mothe r(V18.0, Z83.3) Status:Active FHx: myocardial infarction: Father(V17.3, Z82.49) Status:Active Family history of cardiac pa cemaker: Brother(V17.49, Z82.49) Status:Active Unknown Family Member Name Dates Details Family history of renal fail ure: Mother(V18.69, Z84.1) Status:Active FH: diabetes mellitus: Mothe r(V18.0, Z83.3) Status:Active FHx: myocardial infarction: Father(V17.3, Z82.49) Status:Active Family history of cardiac pa cemaker: Brother(V17.49, Z82.49) Status:Active Unknown Family Member Name Dates Details Family history of renal fail ure: Mother(V18.69, Z84.1) Status:Active FH: diabetes mellitus: Mothe r(V18.0, Z83.3) Status:Active FHx: myocardial infarction: Father(V17.3, Z82.49) Status:Active Family history of cardiac pa cemaker: Brother(V17.49, Z82.49) Status:Active Unknown Family Member Name Dates Details Family history of renal fail ure: Mother(V18.69, Z84.1) Status:Active FH: diabetes mellitus: Mothe r(V18.0, Z83.3) Status:Active FHx: myocardial infarction: Father(V17.3, Z82.49) Status:Active Family history of cardiac pa cemaker: Brother(V17.49, Z82.49) Status:Active Unknown Family Member Name Dates Details Family history of renal fail ure: Mother(V18.69, Z84.1) Status:Active FH: diabetes mellitus: Mothe r(V18.0, Z83.3) Status:Active FHx: myocardial infarction: Father(V17.3, Z82.49) Status:Active Family history of cardiac pa cemaker: Brother(V17.49, Z82.49) Status:Active Unknown Family Member Name Dates Details Family history of renal fail ure: Mother(V18.69, Z84.1) Status:Active FH: diabetes mellitus: Mothe r(V18.0, Z83.3) Status:Active FHx: myocardial infarction: Father(V17.3, Z82.49) Status:Active Family history of cardiac pa cemaker: Brother(V17.49, Z82.49) Status:Active Unknown Family Member Name Dates Details Family history of cardiac pa cemaker: Brother(V17.49, Z82.49) Status:Active FHx: myocardial infarction: Father(V17.3, Z82.49) Status:Active FH: diabetes mellitus: Mothe r(V18.0, Z83.3) Status:Active Family history of renal fail ure: Mother(V18.69, Z84.1) Status:Active Unknown Family Member Name Dates Details Family history of renal fail ure: Mother(V18.69, Z84.1) Status:Active FH: diabetes mellitus: Mothe r(V18.0, Z83.3) Status:Active FHx: myocardial infarction: Father(V17.3, Z82.49) Status:Active Family history of cardiac pa cemaker: Brother(V17.49, Z82.49) Status:Active Unknown Family Member Name Dates Details Family history of renal fail ure: Mother(V18.69, Z84.1) Status:Active FH: diabetes mellitus: Brennon r(V18.0, Z83.3) Status:Active FHx: myocardial infarction: Father(V17.3, Z82.49) Status:Active Family history of cardiac pa cemaker: Brother(V17.49, Z82.49) Status:Active Relationship Condition Age at Onset Recorded Date/T rowan father Myocardial infarction Unknown Not Specified Diabetes mellitus Unknown Diabetic nephropathy Unknown brother Presence of cardiac pacemaker Unknown sister Malignant neoplasm of pancreas Unknown Diabetes mellitus Unknown Cerebral hemorrhage Unknown Heart problem Unknown daughter Diabetes mellitus Unknown Hypertension Unknown brother Heart disease Unknown father Heart disease Unknown Unknown Renal failure Unknown Malignant neoplasm Unknown sister Malignant neoplasm Unknown Advance Directives Advance Directive Response Recorded Date/ Time Advance Directives No March 13, 2019 10:30am Chief Complaint * I am getting a little dizzy * JUNIOR TORRES is being seen for a 3 week follow-up of hypertension. * Patient was last evaluated in clinic Dr. Carlin Nov 2021 * Changes to medical regimen at that time Entresto increased 49/51mg BID * Repeat cr 1.5 (c/w history) K+ 4.1 * Patient has been compliant with changes, reports some mild POH (same as on the lower dose) * BP at home: still high * Type of machine: arm * Time of BP assessment: after morning meds * Has machine been previously calibrated by medical staff? 5-10mmg higher (checked in office today) * Obstructive Sleep Apnea: no prior testing * In office SBP dropped 28mmHg sit to stand but was asymptomatic. * Times at home when stands up he gets dizzy and affects vision * Not wearing compression stockings, 'not a lot of water' * No anemia, no recent labs * No azotemia on recent labs * I am getting a little dizzy * JUNIOR TORRES is being seen for a 3 week follow-up of hypertension. * Patient was last evaluated in clinic Dr. Carlin Nov 2021 * Changes to medical regimen at that time Entresto increased 49/51mg BID * Repeat cr 1.5 (c/w history) K+ 4.1 * Patient has been compliant with changes, reports some mild POH (same as on the lower dose) * BP at home: still high * Type of machine: arm * Time of BP assessment: after morning meds * Has machine been previously calibrated by medical staff? 5-10mmg higher (checked in office today) * Obstructive Sleep Apnea: no prior testing * In office SBP dropped 28mmHg sit to stand but was asymptomatic. * Times at home when stands up he gets dizzy and affects vision * Not wearing compression stockings, 'not a lot of water' * No anemia, no recent labs * No azotemia on recent labs * Feeling better * JUNIOR TORRES is being seen for a month follow-up of dizziness. * Patient is ambulatory with steady gait. * Last evaluated in clinic by myself Dec 2021; at that time, reduced coreg due to dizziness and bradycardia. * Holter pending. * Compared to last cardiovascular evaluation, patient reports doing better, dizziness has resolved. * Patient denies any hospitalizations or significant changes to interval medical history since last office follow-up. * Patient attends to own ADLs and functional ADLs. * Patient daily activity includes: rides stationary bike 4 miles daily * Patient ambulate in from parking lot without concerns. * Patient denies change to exercise tolerance or functional capacity since last evaluation. 2 week POVfollow upfollow up* JUNIOR TORRES is being seen for an annual follow- up of. * 77-year-old gentleman returns for follow-up and doing well from a cardiovascular standpoint. We will continue to follow and treat you for ischemic cardiomyopathy, remote three-vessel CABG with known occluded grafts x3 and subsequent PCI of the LAD x2 drug-eluting stents. Last heart catheterization 2018 revealed the above anatomy with known occlusions of the lower [place] RCA and circumflex, patent LAD and stents and patent ramus branch at that time with moderate left ventricular dysfunction, improved on Entresto therapy and guideline directed medical therapies with subsequent MUGA scan revealing ejection fraction of 51% 1 year later and May 2020. * Patient underwent work-up, and treatment and surgical intervention for melanoma of the left upper back details of which are reviewed, without complications or cardiovascular events. * He has underlying history of [place] Heart Association class II/C heart failure, COPD, essential hypertension, former smoker, hyperlipidemia, the above-mentioned melanoma with excision, PCI LAD, ischemic cardiomyopathy with improved LV function. * Recommendations: We will continue current therapies, follow-up with within the next year Reason for Referral Specialty Diagnoses / Procedures Referred By Contac t Referred To Contact Radiology Diagnoses Ischemic cardiomyopathy CHF (NYHA class II, ACC/AHA stage C) (CMS/HCC) Procedures NM heart blood pool ejection fraction wall motion (MUGA) Bud Carlin DO [address] [facility] [address] [place] [address] Referral ID Status Reason Start Date Expiration Date Visits Requested Visits Authorized [id number] Authorized Perform Procedure 12/20/2023 12/19/2024 2 2 Chief Complaint and Reason for Visit Chief Complaint ^ Amb Documentation uri Chief Complaint ^ Amb Documentation uri SAWV/LABS Reason for Visit Asthma Chronic insomnia Peripheral neuropathy Sinusitis Acute bronchitis Cold intolerance Iron deficiency Additional Source Comments (unrecognized sect ion and content) No Status Records FoundNo Status Records FoundNo Status Records FoundNo Status Records FoundNo Status Records FoundNo Status Records FoundNo Status Records FoundNo Status Records Found INFORMATION SOURCE (unrecogn ized section and content) DATE CREATED AUTHOR 07/13/2020 [facility] DATE CREATED AUTHOR AUTHOR'S ORGANIZ ATION 12/06/2021 [facility] DATE CREATED AUTHOR AUTHOR'S ORGANIZ ATION 12/15/2022 [facility] DATE CREATED AUTHOR AUTHOR'S ORGANIZ ATION 02/13/2023 [facility] DATE CREATED AUTHOR AUTHOR'S ORGANIZ ATION 03/17/2023 [facility] DATE CREATED AUTHOR AUTHOR'S ORGANIZ ATION 09/29/2023 [employer] DATE CREATED AUTHOR AUTHOR'S ORGANIZ ATION 01/15/2024 [facility] DATE CREATED AUTHOR AUTHOR'S ORGANIZ ATION 01/20/2024 [facility] Reason for Visit (unrecogniz ed section and content) Reason Comments Annual Exam Specialty Diagnoses / Procedures Referred By Contmando t Referred To Contact Radiology Diagnoses Ischemic cardiomyopathy CHF (NYHA class II, ACC/AHA stage C) (CMS/HCC) Procedures NM heart blood pool ejection fraction wall motion (MUGA) Bud Carlin DO [address] [place] [address] Referral ID Status Reason Start Date Expiration Date Visits Requested Visits Authorized [id number] Authorized Perform Procedure 12/20/2023 12/19/2024 2 2 Care Teams (unrecognized sec tion and content) Ship Steward Relationship Specialty Start Date End Date FabiohemantHayden DO [address] [address] PCP - General Family Medicine 12/20/23 Ship Steward Relationship Specialty Start Date End Date Hayden Adams Joey [address] [address] PCP - General Family Medicine 12/20/23 Ship Steward Relationship Specialty Start Date End Date Juan Francisco Adamsrema Cook DO [address] [place] [address] PCP - General Family Medicine 12/20/23 Team Status: Active Member Role Status Dates Hayden Adams DO Primary Care Provider Active Team Status: Active Member Role Status Dates Ольаг Barros Attending Provider Active Start: June 01, 2004 Team Status: Active Member Role Status Dates Hayden Adams DO Primary Care Provider Active St art: January 17, 2024 Destiny Angel LPN Attending Provider Active Start: January 17, 2024 Team Status: Inactive Member Role Status Dates Hayden Adams DO Primary Care Provide r, Attending Provider Active Start: February 13, 2024 End: February 13, 2024 Team Status: Active Member Role Status Dates Hayden Adams DO Primary Care Provide r, Attending Provider Active Start: February 29, 2024 Team Status: Inactive Member Role Status Dates Hayden Adams DO Primary Care Provide r, Attending Provider Active Start: March 15, 2024 End: March 15, 2024 Goals (unrecognized section and content) Goals may be documented in a n alternate section FOR RECORDS PERTAINING TO PATIENTS WHO ARE OR HAVE BEEN ENROLLED IN A CHEMICAL DEPENDENCY/SUBSTANCEABUSE PROGRAM, SOME INFORMATION MAY BE OMITTED. This clinical summary was aggregated from multiple sources. Caution should be exercised in using it in the provision of clinical care. This summary normalizes information from multiple sources, and as a consequence, information in this document may materially change the coding, format and clinical context of patient data. In addition, data may be omitted in some cases. CLINICAL DECISIONS SHOULD BE BASED ON THE PRIMARY CLINICAL RECORDS. [employer] [facility]. provides no warranty or guarantee of the accuracy or completeness of information in this document.
[2024-03-26 09:16] LABS: Anion Gap 12.1; BUN Creatinine Ratio 14.2; Calcium 9.2 mg/dL (8.5-10.1); Carbon Dioxide 27.8 mmol/L (21.0-32.0); Chloride 106 mmol/L (98-107); Estimated GFR (African America 50 (>=60); Estimated GFR (Non-African Ame 41 (>=60); Glucose 95 mg/dL (74-106); Potassium 3.9 mmol/L (3.5-5.1); Sodium 142 mmol/L (136-145)
== END 2024-03-26 08:02 | disposition home or self-care (01) ==
LOC: LAB 08:02
PROVIDERS: PCP Family Medicine; Visit Provider Internal Medicine Cardiovascular Disease
DX: I25.5 Ischemic cardiomyopathy (principal); I50.9 Heart failure, unspecified; I11.0 Hypertensive heart disease with heart failure
CPT/HCPCS: 36415; 80048; 83880

== ENCOUNTER 2024-09-24 08:12 | Outpatient (OUT) | payer MEDICARE, SELFPAY ==
--- OUTSIDE RECORDS SUMMARY | 2024-09-24 08:21 | XMS_ITS | CCD ---
Author Organization [facility] Care Team Providers Care Nascar Racer Name Role Phone Oberer Hayden L Unavailable Unavailable Unavailable Oberer, Hayden Unavailable Anantphillip Crescencio Unavailable Jacob Marrero Unavailable Julita Owen Unavailable Unavailable Oberer, Hayden Joey Primary Care Unavailable MIGUEL A Ortizna Attending Unavailable MIGUEL A Ortiz Referring Unavailable Oberer, Hayden Joey Primary Care Unavailable Rogerio, Dr. Bud Jacobson Attending Unava ilable Rogerio, Dr. Bud Jacobson Referring Unava ilable Oberer, Hayden Joey Primary Care Unavailable Rogerio, Dr. Bud Jacobson Attending Unava ilamanda Carlin, Dr. Bud Jacobson Referring Unava ilable [...] Jacinto, Dr. ОЛЬГА GUERRERO Attending Un available Dr. Desire Murcia Attending Unavailable KAREN Jacinto, Dr. ОЛЬГА GUERRERO Referring Un available Oberer, Hayden Joey Primary Care Unavailable KAREN Jacinto, Dr. ОЛЬГА GUERRERO Referring Un available Oberer, Hayden Joey Primary Care Unavailable KAREN Jacinto, Dr. ОЛЬГА GUERRERO Attending Un available Oberer, Hayden Joey Primary Care Unavailable Rogerio, Dr. Bud Jacobson Attending Unava ilamanda Carlin, Dr. Bud Jacobson Referring Unava ilable Oberer, Hayden Joey Primary Care Unavailable Angel, MIGUEL A Vigil Attending Unavailable Ortiz, MIGUEL A Vigil Referring Unavailable Oberer, Hayden Cook Primary Care Unavailable Angel, MIGUEL A Vigli Attending Unavailable Ortiz, MIGUEL A Vigil Referring Unavailable Oberer, Dr. Hayden Cook Primary Care Unavailable Ольга Brown Attending Unavailable Oberer, Dr. Hayden Cook Primary Care Unavailable Ольга Brown Attending Unavailable Oberer, Dr. Hayden Cook Primary Care Unavailable Ольга Brown Admitting Unavailable Ольга Brown Attending Unavailable Ольга Brown Referring Unavailable OBERER, DR BRAXTON Primary Care Unavailable OBERER, DR BRAXTON Admitting Unavailable OBERER, DR BRAXTON Attending Unavailable OBERER, DR BRAXTON Consulting Unavailable OBERER, DR BRAXTON Primary Care Unavailable OBERER, DR BRAXTON Admitting Unavailable OBERER, DR BRAXTON Attending Unavailable OBERER, DR BRAXTON Consulting Unavailable Oberer DOHayden Primary Care Provider Ольга Barros Attending Provider [phone] Oberer Hayden SANDOVAL Primary Care Provider UnaBUD Chavarria S Attending Unavailable OBERER, HAYDEN L Primary Care Unavailable ROGERIO, BUD S Referring Unavailable OBERER, HAYDEN L Primary Care Unavailable ROGERIO BUD S Attending Unavailable ROGERIO, BUD S Referring Unavailable OBERER, HAYDEN L Primary Care Unavailable ROGERIO, BUD S Referring Unavailable OBERER, HAYDEN L Primary Care Unavailable ROGERIO, BUD S Attending Unavailable ROGERIO, BUD S Referring Unavailable OBERER, HAYDEN L Primary Care Unavailable ROGERIO, BUD S Referring Unavailable OBERER, HAYDEN L Primary Care Unavailable ROGERIO, BUD S Referring Unavailable OBERER, HAYDEN L Primary Care Unavailable ROGERIO, BUD S Referring Unavailable OBERER, HAYDEN L Primary Care Unavailable Oberer Hayden SANDOVAL Primary Care Provider ObererDO Braxton Primary Care Provider MD Crescencio Mendez Attending Provider [phone] Crescencio Mendez Attending Unavailable Crescencio Mendez Admitting Unavailable Oberer, Hayden Primary Care Unavailable Allergies Allergy Classification Reported Allergen(s) Allergy Type Date of Onset Reaction(s) Facility (20 sources) amLODIPine Drug Allergy 4 peripheral edema [facility] (20 sources) Metoprolol Drug Allergy 4 ED [facility] (1 source) No Alert Propensity to adverse reactions to drug 2 [facility] (1 source) amLODIPine Drug Allergy 4 [facility] Repository (1 source) Metoprolol Drug Allergy 4 [facility] Repository Medications Current Medications Medication Drug Class(es) Dates Sig (Normalized) Sig (Original) aspirin 81 mg chewable tablet (20 sources) Platelet Aggregation Inhibitor, Nonsteroidal Anti-inflammatory Drug Start: 06-21-2019 take 81 mg by mouth once daily in the evening Aspirin Active 81 MG PO Daily June 21, 2019 12:00am takes in PM Start: 06-21-2019 take 81 mg by mouth once daily in the evening Aspirin Active 81 MG PO Daily June 21, 2019 12:00am takes in PM take 1 tablet by mouth once danita y aspirin 81 mg EC tablet Take 1 tablet (81 mg) by mouth once daily. Active Calcium & Magnesium Carbonates (8 sources) Calcium & Magnes ium Carbonates Active Co Q 10 (20 sources) Co Q 10 Active colchicine 0.6 mg oral tablet (12 sources) Start: 10-25-2021 take 1 tablet by mouth once daily as needed colchicine 0.6 mg tablet Take 1 tablet (0.6 mg) by mouth once daily. As needed for gout flare 10/25/2021 Active Start: 10-25-2021 Colchicine 0.6 MG Oral Tablet Quantity: 3 Refills: 0 Ordered: 25-Oct-2021 DO Start : 25-Oct-2021 Active Start: 10-25-2021 Colcrys 0.6 MG 2 tablets initially and 1 tablet in 1 hour Orally for 30 day(s) Oct, Active 24 hr isosorbide mononitrate 30 mg extended release oral tablet (20 sources) Nitrate Vasodilator Start: 06-25-2019 End: 07-16-2025 take 30 mg by mouth once daily Isosorbide Mononitrate Active 30 MG PO Daily June 25, 2019 12:00am Isosorbide [place] itrate Active 200 actuat levalbuterol 0.045 mg/actuat metered dose inhaler (20 sources) beta2-Adrenergic Agonist Start: 09-20-2021 take 1-2 puff(s) by inhalation every six hours levalbuterol (Xopenex) 45 mcg/actuation inhaler Inhale 1-2 puffs every 6 hours if needed. 09/20/2021 Active Start: 09-20-2021 Levalbuterol T artrate 45 MCG/ACT Inhalation Aerosol As directed. Quantity: 0 Refills: 0 Ordered: 20-Sep-2021 DO Start : 20-Sep-2021 Active Start: 06-25-2019 End: 07-31-2024 take 1 puff(s) by inhalation every four to six hours Levalbuterol Tartrate (Xopenex Hfa) 45 mcg/actuation Hfa Aerosol Inhaler Discontinued 1 PUFF INHALATION EVERY 4-6 HOURS June 25, 2019 12:00am July 31, 2024 1:16pm take 1 puff(s) by in halation every four hours as needed Xopenex HFA 45 MCG/ACT 1 puff as needed Inhalation every 4 hrs for 30 days PRN Active loperamide hydrochloride 2 mg oral capsule (20 sources) Opioid Agonist Start: 05-30-2024 End: 07-31-2024 take 1 capsule by mouth four times daily Loperamide (Anti-Diarrheal (Loperamide)) 2 mg capsule Active 2 MG PO Four times daily 90 90 July 31, 2024 1:32pm Start: 09-22-2021 take 1 capsule by mo [facility] once daily loperamide (Imodium) 2 mg capsule Take 1 capsule (2 mg) by mouth once daily. 09/22/2021 Active Start: 09-20-2021 take 1 tablet by chaitanya once daily Loperamide A-D 2 MG 1 tab(s) Orally qd for 90 day(s) Sep, Not-Taking pravastatin sodium 80 mg oral tablet (20 sources) HMG-CoA Reductase Inhibitor Start: 05-06-2019 End: 07-16-2025 take 80 mg by mouth once daily Pravastatin Active 80 MG PO Daily May 06, 2019 12:00am sacubitril 49 mg / valsartan 51 mg oral tablet (20 sources) Angiotensin 2 Receptor Kyle Start: 03-15-2024 End: 07-16-2025 take 1 tablet by mouth twice daily Sacubitril-Valsart an (Entresto) 49-51 mg tablet Active 1 TAB PO Twice daily March 15, 2024 12:00am Start: 12-08-2021 End: 12-20-2023 take 1 tablet by mouth twice daily sacubitriL-valsartan (Entresto) 49-51 mg tablet Indications: Ischemic cardiomyopathy , CHF (NYHA class II, ACC/AHA stage C) (CMS/HCC) Take 1 tablet by mouth 2 times a day. 180 tablet 3 10/12/2023 12/20/2023 Discontinued (Dose adjustment) Start: 04-07-2020 End: 12-19-2024 take 1 tablet by mouth twice daily Sacubitril-Valsartan Discontinued 1 TAB PO Twice daily April 07, 2020 12:00am March 15, 2024 1:39pm ubidecarenone 10 mg oral cap elizabeth (5 sources) Start: 04-07-2020 Coenzyme Q10 ( Co Q-10) 10 mg Capsule Active 10 MG PO Once April 07, 2020 12:00am take 1 capsule by mouth three ti mes daily co-enzyme Q-10 30 mg capsule Take 1 capsule (30 mg) by mouth 3 times a day. Active Completed/Discontinued Medications Medication Drug Class(es) Dates Sig (Normalized) Sig (Original) allopurinol 300 mg oral tablet (20 sources) Xanthine Oxidase Inhibitor Start: 05-06-2019 End: 07-19-2024 take 300 mg by mouth once daily Allopurinol Discontinued 300 MG PO Daily January 17, 2024 3:05pm July 19, 2024 3:47pm azithromycin 500 mg oral tablet (3 sources) Macrolide Antimicrobial Start: 02-13-2024 End: 03-15-2024 take 1 mg by mouth once daily Azithromycin (Zithromax Tri-Jacinto) 500 mg tablet Discontinued 0 PO daily February 13, 2024 12:00am March 15, 2024 1:35pm For 500 mg dose pack: take 500 mg once daily for 3 days orally daily; carvedilol 12.5 mg oral tablet (20 sources) alpha-Adrenergic Kyle, beta-Adrenergic Kyle Start: 07-09-2021 End: 10-11-2024 take 1 tablet by mouth twice daily carvedilol (Coreg) 12.5 mg tablet Indications: Atherosclerosis of coronary artery of [place] heart without angina pectoris, unspecified vessel or lesion type , Ischemic cardiomyopathy Take 1 tablet (12.5 mg) by mouth 2 times a day. 180 tablet 3 10/12/2023 04/02/2024 Discontinued (Therapy completed) Start: 07-09-2021 take 0.5 tablet by m outh twice daily Carvedilol 12.5 MG Oral Tablet TAKE 1/2 TABLET TWICE DAILY. Quantity: 30 Refills: 0 Ordered: 22-Dec-2021 Yaritza Huertas Start : 09-Jul-2021 Active Start: 06-25-2019 End: 07-31-2024 take 1 tablet by mouth twice daily at mealtime Carvedilol (Coreg) 25 mg tablet Discontinued 25 MG PO Twice daily 60 June 25, 2019 12:00am July 31, 2024 1:15pm must administer with a meal/food ciclopirox 7.7 mg/ml topical cream (2 sources) Start: 03-15-2024 End: 07-31-2024 Ciclopirox (Loprox (As Olamine)) 0.77 % cream Discontinued 1 APPLIC TOPICAL Twice daily March 15, 2024 12:00am July 31, 2024 1:16pm Apply to feet clopidogrel 75 mg oral tablet (4 sources) [id number] Platelet Inhibitor Start: 05-06-2019 End: 02-13-2024 take 75 mg by mouth once daily Clopidogrel Discontinued 75 MG PO Daily May 06, 2019 12:00am February 13, 2024 2:14pm ferrous sulfate 325 mg oral tablet (19 sources) Start: 03-14-2023 End: 07-31-2024 take 325 mg by mouth once daily Ferrous Sulfate Discontinued 325 MG PO Daily January 26, 2024 12:00am July 31, 2024 1:16pm Start: 03-14-2023 take 1 tablet by chaitanya th once daily at mealtime Ferrous Sulfate 325 (65 Fe) MG 1 tablet Orally Daily with food for 90 days March, Active fluticasone propionate 0.05 mg/actuat metered dose nasal spray (20 sources) Corticosteroid Start: 03-15-2022 Fluticasone Pr opionate 50 MCG/ACT Nasal Suspension Quantity: 16 Refills: 0 Ordered: 15-Mar-2022 DO Start : 15-Mar-2022 Active take 2 spray(s) nasal route once daily fluticasone (Flonase) 50 mcg/actuation nasal spray Administer 2 sprays into each nostril once daily. Active take 2 spray(s) nasal route twic [...] Twice a day for 30 Days Active gabapentin 100 mg oral capsule (3 sources) Anti-epileptic Agent Start: 03-15-2024 End: 07-31-2024 take 1 capsule by mouth once daily at bedtime Gabapentin (Neurontin) 100 mg capsule Discontinued 100 MG PO Daily at bedtime March 15, 2024 12:00am July 31, 2024 1:16pm methylPREDNISolone (16 sources) Corticosteroid Start: 07-29-2019 SOLU-MEDROL UP TO 40 mg Jul, 80 mg nitroglycerin 0.4 mg sublingual tablet (20 sources) Nitrate Vasodilator Start: 06-25-2019 End: 08-16-2024 Nitroglycerin (Nitrostat) 0.4 mg Tablet, Sublingual Discontinued 0.4 MG SUBLINGUAL every 5 to 15 minutes June 25, 2019 12:00am August 16, 2024 12:15pm Nitrostat 0.4 MG 1 tab as directed Sublingual prn chest pain for 90 days Active predniSONE 20 mg oral tablet (3 sources) Start: 02-13-2024 End: 03-15-2024 Prednisone Discontinued 0 PO daily February 13, 2024 12:00am March 15, 2024 1:36pm 1 p.o. 3 times daily x 3 days, then twice daily until gone spironolactone 25 mg oral tablet (4 sources) Aldosterone Antagonist Start: 04-07-2020 End: 02-13-2024 take 12.5 mg by mouth once daily Spironolactone Discontinued 12.5 MG PO Daily April 07, 2020 12:00am Tessa 2nd, 2024 2:17pm sulfamethoxazole 800 mg / trimethoprim 160 mg oral tablet (3 sources) Dihydrofolate Reductase Inhibitor Antibacterial, Sulfonamide Antimicrobial Start: 07-12-2022 End: 07-19-2022 take 1 tablet by mouth twice daily Sulfamethoxazole-Tr imethoprim 800-160 MG Oral Tablet Take 1 tablet twice daily Quantity: 14 Refills: 0 Ordered: 12-Jul-2022 Ольга Brown MD Start : 12-Jul-2022 End : 19-Jul-2022 Complete [id number] RBCs (Ultratag) injection 25 millicurie (2 sources) Start: 01-09-2024 End: 01-09-2024 [id number] RBCs (Ultratag) injection 25 millicurie valsartan 160 mg oral tablet (8 sources) Angiotensin 2 Receptor Kyle Start: 05-06-2019 End: 04-07-2020 take 160 mg by mouth once daily in the evening Valsartan Discontinued 160 MG PO Every evening June 21, 2019 12:00am April 07, 2020 3:30pm 24 hr verapamil hydrochloride 240 mg extended release oral capsule (8 sources) Calcium Channel Kyle Start: 05-06-2019 End: [...] Cardiac arrhythmia; Translations: [Cardiac arrhythmia, unspecified] Chronic Chronic obstructive pulmonary disease and bronchiectasis (20 sources) Chronic obstructive lung disease; Translations: [Chronic airway obstruction, not elsewhere classified] Onset: 2 10-11-2023 Chronic Complication of device; implant or graft (1 source) Arteriosclerosis of coronary artery bypass graft; Translations: [Atherosclerosis of coronary artery bypass graft(s) without angina pectoris] Onset: 4 07-16-2024 Chronic Conditions associated with dizziness or vertigo (20 sources) Dizziness; Translations: [Dizziness and giddiness] Onset: 3 10-11-2023 Episodic Conduction disorders (1 source) Atrioventricular block, first degree; Translations: [Atrioventricular block, first degree] Onset: 2 Chronic Congestive heart failure; nonhypertensive (20 sources) Congestive heart failure stage C; Translations: [Congestive heart failure, unspecified] Onset: 2 12-20-2023 Chronic Coronary atherosclerosis and other heart disease (20 sources) Coronary atherosclerosis; Translations: [Coronary atherosclerosis of [place] coronary artery] Onset: 1 Resolved: 2 Chronic Coronary atherosclerosis and other heart disease (7 sources) Presence of aortocoronary bypass graft; Translations: [Coronary angioplasty status] Onset: 2 Episodic Deficiency and other anemia (4 sources) Nutritional anemia, unspecified; Translations: [NUTRITIONAL ANEMIA UNSPECIFIED] Onset: 2 Resolved: 2 Episodic Deficiency and other anemia (18 sources) Macrocytic anemia; Translations: [Nutritional anemia, unspecified] 01-17-2024 Episodic Diabetes mellitus without complication (20 sources) Type 2 diabetes mellitus without complication; [...] Psychophysiologic insomnia; Translations: [Insomnia, unspecified] 02-13-2024 Chronic Mycoses (4 sources) Tinea pedis; Translations: [Tinea pedis] 03-15-2024 Episodic Noninfectious gastroenteritis (8 sources) Microscopic colitis; Translations: [Microscopic colitis, unspecified] [...] current use of drug therapy; Translations: [Other penitentiary (current) drug therapy] 01-17-2024 Episodic Other aftercare (6 sources) Other penitentiary (current) drug therapy; Translations: [Other penitentiary (current) drug therapy] Onset: 1 Resolved: 2 Episodic Other aftercare (2 sources) Patient encounter status; Translations: [Other penitentiary (current) drug therapy] 01-17-2024 Episodic Other and unspecified benign neoplasm (20 sources) History of polyp of colon; Translations: [Personal history of colonic polyps] Episodic Other and unspecified benign neoplasm (2 sources) Personal history of colonic polyps Episodic Other connective tissue disease (13 sources) [...] unspecified Onset: 1 Resolved: 1 Episodic Other gastrointestinal disorders (1 source) Altered bowel function; Translations: [Change in bowel habit] 07-31-2024 Episodic Other gastrointestinal disorders (1 source) Change in bowel habit; Translations: [Other symptoms involving digestive system] 07-31-2024 Episodic Other lower respiratory disease (20 sources) [...] (chronic)] 02-13-2024 Chronic Peripheral and visceral atherosclerosis (20 sources) Intermittent claudication; Translations: [Peripheral vascular disease, unspecified] Onset: 3 10-11-2023 Chronic Residual codes; unclassified (1 source) No current problems or disability; Translations: [Other specified conditions influencing health status] Onset: 2 Episodic Residual codes; unclassified (1 source) Other general symptoms and signs; Translations: [Other general symptoms] 02-13-2024 Episodic Residual codes; unclassified (2 sources) Other specified health status; Translations: [Other specified health status] Onset: 4 Episodic Residual codes; unclassified (2 sources) Body mass index (BMI) 24.0-24.9, adult; Translations: [Body mass index (BMI) 24.0-24.9, adult] Onset: 4 Episodic Residual codes; unclassified (1 source) Intolerance to drug; Translations: [Other specified health status] Onset: 4 07-16-2024 Episodic Residual codes; unclassified (1 source) Body mass index 20-24 - normal; Translations: [Body mass index (BMI) 24.0-24.9, adult] Onset: 4 07-16-2024 Episodic Unclassified (1 source) Personal history of COVID-19; Translations: [Personal history of COVID-19] Onset: 2 Unclassified (1 source) Contact with and (suspected) exposure to COVID-19; Translations: [Contact with and (suspected) exposure to COVID-19] Onset: 2 Past or Other Problems Problem Classification Problem Date Documented Date Episodic/Chronic Blindness and vision defects (5 sources) Blurring of visual image; Translations: [Other visual disturbances] Onset: 04-02-2024 04-02-2024 Episodic Cardiac dysrhythmias (20 sources) Bradycardia; Translations: [Other specified cardiac dysrhythmias] Onset: 07-05-2022 12-20-2023 Episodic Genitourinary symptoms and ill-defined conditions (1 [...] Onset: 08-16-2022 Episodic Other aftercare (1 source) moth exterminator (current) use of aspirin; Translations: [FPC (current) use of aspirin] Onset: 07-07-2022 Episodic Other aftercare (1 source) FPC (current) use of antithrombotics/antip latelets; Translations: [FPC (current) use of antithrombotics/antip latelets] Onset: 07-07-2022 Episodic Other and unspecified benign neoplasm (9 sources) Dysplastic nevus of trunk; Translations: [Benign neoplasm of skin of trunk, except scrotum] Onset: 10-11-2023 10-11-2023 Episodic Other and unspecified benign neoplasm (2 sources) Other benign neoplasm of skin of trunk; Translations: [Other benign neoplasm of skin of trunk] Onset: 07-07-2022 Episodic Other circulatory disease (20 sources) Patient post angioplasty; Translations: [Other postprocedural status] Onset: 10-11-2023 12-20-2023 Episodic Other circulatory disease (2 sources) Peripheral vascular angioplasty status; Translations: [Peripheral vascular angioplasty status] Onset: 10-11-2023 Episodic Other infections; including parasitic (20 sources) Personal history of other infectious and parasitic diseases; Translations: [Personal history of COVID-19] Onset: 10-11-2023 10-11-2023 Episodic Other nutritional; endocrine; and metabolic disorders (3 sources) Body mass index 25-29 - overweight; Translations: [Overweight] Onset: 04-02-2024 04-02-2024 Episodic Other nutritional; endocrine; and metabolic disorders (2 sources) Overweight; Translations: [Overweight] Onset: 04-02-2024 Episodic Screening and history of mental health and substance abuse codes (20 sources) Ex-smoker; Translations: [Personal history of tobacco use] Onset: 07-07-2022 12-20-2023 Episodic Comment on above: QUIT IN THE S; Skin and subcutaneous tissue infections (13 sources) Cellulitis; Translations: [Cellulitis and abscess of unspecified sites] Onset: 10-11-2023 10-11-2023 Episodic Unclassified (7 sources) Onset: 12-20-2023 Resolved: 07-16-2024 12-20-2023 Results Test Name Value Interpretation Reference Range Facility Pathology Request for Lab Co rpon 08-26-2024 Pathology Request for Lab Srikanth Normal [facility] Comment on above: Order Comment: PATHO LOGY GI SPECIMEN Result Comment: See report. Scanned copy available in EMR. PERFORMED BY: [place] [id number] PATHOLOGIST [employer] DIRECTOR JUDY ROMERO M.D. Performed By: #### P ATH TO [facility] #### [address] VASC US CAROTID ARTERY DUPLE X BILATERALon 08-20-2024 VASC US CAROTID ARTERY DUPLEX BILATERAL [address], [address], [place] [address] Vascular Lab Report VAS US CAROTID ARTERY DUPLEX BILATERAL Patient Name: JUNIOR Becker Physician: [id number] Jimmie Mata MD, FACC Study Date: 08/20/2024 Ordering Provider: [id number] BUD CARLIN MRN/PID: [id number] Fellow: Technologist: Jana Aguiar RDCS, Howie Date of /Age: 705/14/1945 / 79 years Technologist 2: Gender: M Admission Status: Outpatient Location Performed: [facility] Diagnosis/ICD: Dizziness and giddiness-R42 Indication: CAD, HTN, Hyperlipidemia, Former Smoker, CABG, Ischemic Cardiomyopathy, COPD, CHF, PTCA, Overweight, Renal Insufficiency CPT Codes: 47503 Cerebrovascular Carotid Duplex scan complete CONCLUSIONS: Right Carotid: Findings are consistent with less than 50% stenosis of the right proximal internal carotid artery. Right external carotid artery appears patent with no evidence of stenosis. No evidence of hemodynamically significant stenosis of the right common carotid artery. The right vertebral artery is patent with antegrade flow. Left Carotid: Findings are consistent with less than 50% stenosis of the left proximal internal carotid artery. Laminar flow seen by color Doppler. Left external carotid artery appears patent with no evidence of stenosis. No evidence of hemodynamically significant stenosis of the left common carotid artery. The left vertebral artery is patent with antegrade flow. Imaging & Doppler Findings: Right Plaque Morph: The proximal right internal carotid artery demonstrates irregular plaque. Left Plaque Morph: The proximal left internal carotid artery demonstrates irregular plaque. The distal left common carotid artery demonstrates irregular plaque. Right Left PSV EDV PSV EDV 94 cm/s 13 cm/s CCA P 105 cm/s 16 cm/s 70 cm/s 13 cm/s CCA M 89 cm/s 19 cm/s 59 cm/s 15 cm/s CCA D 67 cm/s 13 cm/s 60 cm/s 20 cm/s ICA P 47 cm/s 15 cm/s 63 cm/s 18 cm/s ICA M 79 cm/s 20 cm/s 90 cm/s 31 cm/s ICA D 91 cm/s 31 cm/s 72 cm/s ECA 69 cm/s 33 cm/s Vertebral 48 cm/s Right Left ICA/CCA Ratio 1.0 0.7 [id number] Jimmie Mata MD, FACC Final [facility] Basophils Auto (Bld) [#/Vol] on 02-29-2024 Basophils (Bld) [#/Vol] 0.0 10 3/uL 0.0-0.1 [facility] Basophils/100 WBC Auto (Bld) on 02-29-2024 Basophils/100 WBC (Bld) 0.2 % 0.2-2.0 [facility] Cholesterol in LDL Calc [Mas s/Vol]on 02-29-2024 Cholesterol in LDL [Mass/Vol] 55.0 mg/dL [facility] Comment on above: <100 mg/dl [id number] 0-129 mg/dl NEAR OR ABOVE [id number] mg/dl BORDERLINE [id number] mg/dl HIGH>190 mg/dl VERY HIGH Cholesterol in VLDL Calc [Ma ss/Vol]on 02-29-2024 Cholesterol in VLDL [Mass/Vol] 24.0 mg/dL [facility] Eosinophils/100 WBC Auto (Bl d)on 02-29-2024 Eosinophils/100 WBC (Bld) 1.2 % 0.9-7.0 [facility] Erythrocyte distribution wid th Auto (RBC) [Ratio]on 02-29-2024 Erythrocyte distribution width (RBC) [Ratio] 13.4 % 11.0-15.0 [facility] Estimated glomerular filtrat ion rate (GFR) non- Americanon 02-29-2024 GFR/1.73 sq M.predicted among non-blacks MDRD (S/P/Bld) [Vol rate/Area] 41 mL/min/{1.73_m2} >=60 [facility] Globulin Calc (S) [Mass/Vol] on 02-29-2024 Globulin (S) [Mass/Vol] 3.2 g/dL [facility] Glucose mean value [Mass/vol ume] in Blood Estimated from glycated hemoglobinon 02-29-2024 Average glucose Estimated from glycated hemoglobin (Bld) [Mass/Vol] 146 mg/dL [facility] Hematocrit Auto (Bld) [Volum e fraction]on 02-29-2024 Hematocrit (Bld) [Volume fraction] 40.6 % 42.0-54.0 [facility] Hemoglobin [Mass/volume] in Bloodon 02-29-2024 Hemoglobin (Bld) [Mass/Vol] 13.0 g/dL 14.0-18.0 [facility] Laboratory - Chemistry and C hemistry - challengeon 02-29-2024 Albumin [Mass/Vol] 3.1 g/dL 3.4-5.0 [facility] ALP [Catalytic activity/Vol] 87 U/L 46-116 [facility] ALT [Catalytic activity/Vol] 28 U/L 16-63 [facility] AST [Catalytic activity/Vol] 20 U/L 15-37 [facility] Bilirubin [Mass/Vol] 0.7 mg/dL 0.2-1.0 [facility] [facility] Bilirubin.direct [Mass/Vol] 0.1 mg/dL 0.0-0.2 [facility] Calcium [Mass/Vol] 9.2 mg/dL 8.5-10.1 [facility] Chloride [Moles/Vol] 105 mmol/L 98-107 [facility] Cholesterol [Mass/Vol] 136 mg/dL <=200 [facility] Cholesterol in HDL [Mass/Vol] 57 mg/dL 40-60 [facility] Comment on above: > or =60 mg/dl - LOW CARDIOVASCULAR RISK<40 mg/dl - HIGH CARDIOVASCULAR RISK CO2 [Moles/Vol] 29.5 mmol/L 21.0-32.0 [facility] Cobalamin (Vitamin B12) [Mass/Vol] 394.0 pg/mL 193.0-986.0 [facility] Creatinine [Mass/Vol] 1.62 mg/dL 0.70-1.30 [facility] Ferritin [Mass/Vol] 205.0 ng/mL 26.0-388.0 [facility] GFR/1.73 sq M.predicted MDRD (S/P/Bld) [Vol rate/Area] 50 mL/min/{1.73_m2} >=60 [facility] Glucose [Mass/Vol] 96 mg/dL 74-106 [facility] Iron [Mass/Vol] 57.0 ug/dL 65.0-175.0 [facility] Potassium [Moles/Vol] 4.2 mmol/L 3.5-5.1 [facility] Protein [Mass/Vol] 6.3 g/dL 6.4-8.2 [facility] Sodium [Moles/Vol] 142 mmol/L 136-145 [facility] T4 [Mass/Vol] 7.20 ug/dL 4.50-12.10 [facility] Triglyceride [Mass/Vol] 120 mg/dL <=150 [facility] TSH Qn 3.785 m[IU]/L 0.358-3.740 [facility] Urea nitrogen [Mass/Vol] 20.0 mg/dL 7.0-18.0 [facility] Urea nitrogen/Creatinine [Mass ratio] 12.3 mg/mg [facility] Laboratory - Hematology and Cell countson 02-29-2024 HbA1c (Bld) [Mass fraction] 6.7 % 4.5-6.2 [facility] Comment on above: ADA RECOMMENDED LIMI T 4.0 - 6.0ADA THERAPEUTIC TARGET < 7.0ACTION SUGGESTED> 7.0 Immature granulocytes/100 WBC (Bld) 0.2 % 0.0-0.5 [facility] Leukocytes [#/volume] correc consuelo for nucleated erythrocytes in Blood by Automated counon 02-29-2024 WBC corrected for nucl RBC Auto (Bld) [#/Vol] 8.6 10 3/uL 4.0-11.0 [facility] Lymphocytes Auto (Bld) [#/Vo l]on 02-29-2024 Lymphocytes (Bld) [#/Vol] 1.7 10 3/uL 1.2-3.8 [facility] Lymphocytes/100 WBC Auto (Bl d)on 02-29-2024 Lymphocytes/100 WBC (Bld) 20.1 % 20.5-60.0 [facility] MCH Auto (RBC) [Entitic mass ]on 02-29-2024 MCH (RBC) [Entitic mass] 31.2 pg 25.9-34.0 [facility] MCHC Auto (RBC) [Mass/Vol]on 02-29-2024 MCHC (RBC) [Mass/Vol] 32.0 g/dL 29.9-35.2 [facility] MCV Auto (RBC) [Entitic vol] on 02-29-2024 MCV (RBC) [Entitic vol] 97.4 fL 80.0-94.0 [facility] Monocytes Auto (Bld) [#/Vol] on 02-29-2024 Monocytes (Bld) [#/Vol] 0.7 10 3/uL 0.3-0.8 [facility] Monocytes/100 WBC Auto (Bld) on 02-29-2024 Monocytes/100 WBC (Bld) 7.8 % 1.7-12.0 [facility] Neutrophils Auto (Bld) [#/Vo l]on 02-29-2024 Neutrophils (Bld) [#/Vol] 6.0 10 3/uL 1.4-6.5 [facility] Neutrophils/100 WBC Auto (Bl d)on 02-29-2024 Neutrophils/100 WBC (Bld) 70.5 % 43.0-75.0 [facility] No Panel Informationon 02-28 Eosinophils # (Auto) 0.1 10 3/uL 0.0-0.7 [facility] Immature Granulocyte # (Auto) 0.02 10 3/uL 0.00-0.03 [facility] Platelet mean volume Auto (B ld) [Entitic vol]on 02-29-2024 Platelet mean volume (Bld) [Entitic vol] 10.3 fL 9.5-13.5 [facility] Platelets Auto (Bld) [#/Vol] on 02-29-2024 Platelets (Bld) [#/Vol] 167 10 3/uL 150-450 [facility] RBC Auto (Bld) [#/Vol]on RBC (Bld) [#/Vol] 4.17 10 6/uL 4.70-6.10 [facility] Serum or plasma albumin/glob ulin mass ratioon 02-29-2024 Albumin/Globulin [Mass ratio] 1.0 {ratio} [facility] Serum or plasma anion gap de terminationon 02-29-2024 Anion gap [Moles/Vol] 11.7 mmol[facility] Serum or plasma total choles terol/high density lipoprotein (HDL) cholesterol mass sajan 02-29-2024 Cholesterol.total/Cho lesterol in HDL [Mass ratio] 2.4 {ratio} [facility] Comment on above: 3.3 - 4.4 LOW RISK4. 4 - 7.1 AVERAGE RISK7.1 - 11.0 MODERATE RISK>11.0 HIGH RISK NM HEART BLOOD POOL EJECTION FRACTION WALL MOTION (MUGA)on 01-09-2024 NM HEART BLOOD POOL EJECTION FRACTION WALL MOTION (MUGA) Interpreted By: Karen Savage and Giannuzzi Michael STUDY: MUGA Performing facility: [facility], [address] [place] [address], [address], [address] Provider: Marlene Carlin DO, [facility] PCP: Dr. Teddy Adams Supervising provider: Karen Savage MD INDICATION: ICM CHF II HISTORY: Gender: M; Age: 78 y/o ; Height: HT 177.8 cm cm; Weight: WT 80.74 kg kg. CAD; High Cholesterol; HTN; Arrhythmias; Quit smoking unknown years ago. Cardiac catheterization on 2018. CABG on 1994. PTCA on 2004. COMPARISON: Previous nuclear testing completed [id number] EF=51% at [facility]. ACCESSION NUMBER(S): [id number] ORDERING CLINICIAN: BUD CARLIN TECHNIQUE: The patient received an IV injection of 3 ml of stannous pyrophosphate (PYP) using the in-vivo method of labeling red blood cells. After 25 minutes the patient received another IV injection of 26.3 mCi of Technetium 99m pertechnetate. Planar images of the left ventricle were obtained in the NIGERIAN 45, Lt Lateral and anterior projections. FINDINGS: The right ventricle was normal. The left ventricle was normal in size. Regional wall motion was normal. Global resting LVEF was normal- at 67%. IMPRESSION: Normal resting right ventricular function. Normalresting left ventricular function. Left ventricular ejection fraction is 67%. NO PREVIOUS STUDY AVAILABLE FOR COMPARISON Signed by: Karen Savage 01/09/2024 5:34 PM Dictation workstation: [id number] [facility] NM Heart Wall motion and Eje ction fractionon 01-09-2024 Normal resting right ventricular function. Normalresting left ventricular function. Left ventricular ejection fraction is 67%. NO PREVIOUS STUDY AVAILABLE FOR COMPARISON Signed by: Karen Savage 01/09/2024 5:34 PM Dictation workstation: [id number] Interpreted By: Karen Savage and Giannuzzi Michael STUDY: [facility] Performing facility: [facility], [address] [place] [address], [address] Provider: Marlene Carlin DO, [facility] PCP: Dr. Teddy Adams Supervising provider: Karen Savage MD INDICATION: ICM CHF II HISTORY: Gender: M; Age: 78 y/o ; Height: HT 177.8 cm cm; Weight: WT 80.74 kg kg. CAD; High Cholesterol; HTN; Arrhythmias; Quit smoking unknown years ago. Cardiac catheterization on 2004, 2018. CABG on 1994. PTCA on 2004. COMPARISON: Previous nuclear testing completed EF=51% at [facility]. ACCESSION NUMBER(S): [id number] ORDERING CLINICIAN: BUD CARLIN TECHNIQUE: The patient received an IV injection of 3 ml of stannous pyrophosphate (PYP) using the in-vivo method of labeling red blood cells. After 25 minutes the patient received another IV injection of 26.3 mCi of Technetium 99m pertechnetate. Planar images of the left ventricle were obtained in the NIGERIAN 45, Lt Lateral and anterior projections. FINDINGS: The right ventricle was normal. The left ventricle was normal in size. Regional wall motion was normal. Global resting LVEF was normal- at 67%. MMODAL Karen Savage MD - 01/09/2024 Interpreted By: Karen Savage and Giannuzzi Michael STUDY: [facility] Performing facility: [facility], [address] [place] [address], [address] Provider: Marlene Carlin DO, [facility] PCP: Dr. Teddy Adams Supervising provider: Karen Savage MD INDICATION: ICM CHF II HISTORY: Gender: M; Age: 78 y/o ; Height: HT 177.8 cm cm; Weight: WT 80.74 kg kg. CAD; High Cholesterol; HTN; Arrhythmias; Quit smoking unknown years ago. Cardiac catheterization on 2018. CABG on 1994. PTCA on 2004. COMPARISON: Previous nuclear testing completed [id number] EF=51% at [facility]. ACCESSION NUMBER(S): [id number] ORDERING CLINICIAN: BUD CARLIN TECHNIQUE: The patient received an IV injection of 3 ml of stannous pyrophosphate (PYP) using the in-vivo method of labeling red blood cells. After 25 minutes the patient received another IV injection of 26.3 mCi of Technetium 99m pertechnetate. Planar images of the left ventricle were obtained in the NIGERIAN 45, Lt Lateral and anterior projections. FINDINGS: The right ventricle was normal. The left ventricle was normal in size. Regional wall motion was normal. Global resting LVEF was normal- at 67%. IMPRESSION: Normal resting right ventricular function. Normalresting left ventricular function. Left ventricular ejection fraction is 67%. NO PREVIOUS STUDY AVAILABLE FOR COMPARISON Signed by: Karen Savage 01/09/2024 5:34 PM Dictation workstation: [id number] [facility] Work Phone: Radiology Study observation (narrative) [facility] Work Phone: NM Heart Wall motion and Eje ction fractionOrdered By: Karen Savage on 01-09-2024 [facility] Work Phone: CBC AUTO DIFFon 03-10-2023 BASO # 0.0 103/ul Normal 0.0-0.1 [facility] Comment on above: Performed By: #### F OL, IRON #### [facility] [address] [place] [address] Dr. Lashell Caballero Basophils/100 WBC (Bld) 0.6 % Normal 0.2-2.0 [facility] Comment on above: Performed By: #### F OL, IRON #### [facility] [address] [address] [address] Lashell Caballero EO # 0.1 103/ul Normal 0.0-0.7 [facility] Comment on above: Performed By: #### F OL, IRON #### [facility] [address] [place] [address] Dr. Lashell Caballero Eosinophils/100 WBC (Bld) 2.2 % Normal 0.9-7.0 [facility] Comment on above: Performed By: #### F OL, IRON #### [facility] [address] [place] [address] Dr. Lashell Caballero Erythrocyte distribution width (RBC) [Ratio] 13.6 % Normal 11.0-15.0 [facility] Comment on above: Performed By: #### F OL, IRON #### [facility] [address] [place] [address] Dr. Lashell Caballero Hematocrit (Bld) [Volume fraction] 42.2 % Normal 42.0-54.0 [facility] Comment on above: Performed By: #### F OL, IRON #### [facility] [address] [place] [address] Dr. Lashell Caballero Hemoglobin (Bld) [Mass/Vol] 13.7 g/dL Critically low 14.0-18.0 [facility] Comment on above: Performed By: #### F OL, IRON #### [facility] [address] [place] [address] Dr. Lashell Caballero IG # 0.02 10e3/ul Normal 0.00-0.03 [facility] Comment on above: Performed By: #### F OL, IRON #### [facility] [address] [place] [address] Dr. Lashell Caballero IG % 0.3 % Normal 0.0-0.5 [facility] Comment on above: Performed By: #### F OL, IRON #### [facility] [address] [place] [address] Dr. Lashell Caballero LYMPH # 1.7 103/ul Normal 1.2-3.8 [facility] Comment on above: Performed By: #### F OL, IRON #### [facility] [address] [place] [address] Dr. Lashell Caballero Lymphocytes/100 WBC (Bld) 27.5 % Normal 20.5-60.0 [facility] Comment on above: Performed By: #### F OL, IRON #### [facility] [address] [place] [address] Dr. Lashell Caballero MANUAL DIFF REQ NO Normal [facility] Comment on above: Performed By: #### F OL, IRON #### [facility] [address] [place] [address] Dr. Lashell Caballero MCH (RBC) [Entitic mass] 30.9 pg Normal 25.9-34.0 [facility] Comment on above: Performed By: #### F OL, IRON #### [facility] [address] [place] [address] Dr. Lashell Caballero MCHC (RBC) [Mass/Vol] 32.5 g/dL Normal 29.9-35.2 [facility] Comment on above: Performed By: #### F OL, IRON #### [facility] [address] [place] [address] Dr. Lashell Caballero MCV (RBC) [Entitic vol] 95.0 fL Critically high 80.0-94.0 [facility] Comment on above: Performed By: #### F OL, IRON #### [facility] [address] [place] [address] Dr. Lashell Caballero MONO # 0.5 103/ul Normal 0.3-0.8 [facility] Comment on above: Performed By: #### F OL, IRON #### [facility] [address] [place] [address] Dr. Lashell Caballero Monocytes/100 WBC (Bld) 7.4 % Normal 1.7-12.0 [facility] Comment on above: Performed By: #### F OL, IRON #### [facility] [address] [place] [address] Dr. Lashell Caballero NEUT # 3.9 103/ul Normal 1.4-6.5 [facility] Comment on above: Performed By: #### F OL, IRON #### [facility] [address] [place] [address] Dr. Lashell Caballero Neutrophils/100 WBC (Bld) 62.0 % Normal 43.0-75.0 [facility] Comment on above: Performed By: #### F OL, IRON #### [facility] [address] [address] [address] Lashell Caballero Platelet mean volume (Bld) [Entitic vol] 10.3 fL Normal 9.5-13.5 [facility] Comment on above: Performed By: #### F OL, IRON #### [facility] [address] [address] [address] Lashell Caballero PLT 195 103/ul Normal 150-450 [facility] Comment on above: Performed By: #### F OL, IRON #### [facility] [address] [address] [address] Lashell Caballero RBC 4.44 106/ul Critically low 4.70-6.10 [facility] Comment on above: Performed By: #### F OL, IRON #### [facility] [address] [address] [address] Lashell Caballero WBC 6.3 103/ul Normal 4.0-11.0 [facility] Comment on above: Performed By: #### F OL, IRON #### [facility] [address] [address] [address] Lashell Caballero GLYCOHEMOGLOBIN A1Con 2022 ADA RECOMMENDATION SEE BELOW Normal [facility] Comment on above: Result Comment: ADA RECOMMENDED LIMIT 4.0 - 6.0 ADA THERAPEUTIC TARGET < 7.0 ACTION SUGGESTED > 7.0 Performed By: #### A 1C #### [facility] [address] [address] [address] Lashell Caballero Glucose [Mass/Vol] 137 mg/dL Normal [facility] Comment on above: Performed By: #### A 1C #### [facility] [address] [address] [address] Lashell Caballero HbA1c (Bld) [Mass fraction] 6.4 % Critically high 4.5-6.2 [facility] Comment on above: Performed By: #### A 1C #### [facility] [address] [address] [address] Lashell Caballero IRONon 03-10-2023 Iron [Mass/Vol] 61.0 ug/dL Critically low 65.0-175.0 [facility] Comment on above: Performed By: #### F OL, IRON #### [facility] [address] [address] [address] Lashell Caballero LIPID PROFILEon 03-10-2023 CHOL-HDL RATIO NORM SEE BELOW Normal [facility] Comment on above: Result Comment: 3.3 - 4.4 LOW RISK 4.4 - 7.1 AVERAGE RISK 7.1 - 11.0 MODERATE RISK >11.0 HIGH RISK Performed By: #### L IPID, LIVER, BMP #### [facility] [address] [address] [address] Lashell Caabllero Cholesterol [Mass/Vol] 138 mg/dL Normal <=200 [facility] Comment on above: Performed By: #### L IPID, LIVER, BMP #### [facility] [address] [address] [address] Lashell Caballero Cholesterol in HDL [Mass/Vol] 50 mg/dL Normal 40-60 [facility] Comment on above: Performed By: #### L IPID, LIVER, BMP #### [facility] [address] [address] [address] Lashell Caballero Cholesterol in LDL [Mass/Vol] 68.0 mg/dL Normal [facility] Comment on above: Performed By: #### L IPID, LIVER, BMP #### [facility] [address] [address] [address] Lashell Caballero Cholesterol.total/Cho lesterol in HDL [Mass ratio] 2.8 {ratio} Normal [facility] Comment on above: Performed By: #### L IPID, LIVER, BMP #### [facility] [address] [address] [address] Lashell Caballero HDL NORMAL > or = 60 mg/dl - LO W CARDIOVASCULAR RISK <40 mg/dl - HIGH CARDIOVASCULAR RISK Normal [facility] Comment on above: Performed By: #### L IPID, LIVER, BMP #### [facility] [address] [address] [address] Lashell Caballero LDL CALC NORMAL SEE BELOW Normal [facility] Comment on above: Result Comment: <100 mg/dl OPTIMAL 100 - 129 mg/dl NEAR OR ABOVE OPTIMAL 130 - 159 mg/dl BORDERLINE HIGH 160 - 189 mg/dl HIGH >190 mg/dl VERY HIGH Performed By: #### L IPID, LIVER, BMP #### [facility] [address] [address] [address] Lashell Caballero Triglyceride [Mass/Vol] 100 mg/dL Normal <=150 [facility] Comment on above: Performed By: #### L IPID, LIVER, BMP #### [facility] [address] [address] [address] Lashell Caballero VLDL CALC 20.0 mg/dL Normal [facility] Comment on above: Performed By: #### L IPID, LIVER, BMP #### [facility] [address] [address] [address] Lashell Caballero LIVER PROFILEon 03-10-2023 Albumin [Mass/Vol] 3.5 g/dL Normal 3.4-5.0 [facility] Comment on above: Performed By: #### L IPID, LIVER, BMP #### [facility] [address] [address] [address] Lashell Caballero Albumin/Globulin [Mass ratio] 1.1 {ratio} Normal [facility] Comment on above: Performed By: #### L IPID, LIVER, BMP #### [facility] [address] [address] [address] Lashell Caballero ALP [Catalytic activity/Vol] 75 U/L Normal 46-116 [facility] Comment on above: Performed By: #### L IPID, LIVER, BMP #### [facility] [address] [address] [address] Lashell Caballero ALT [Catalytic activity/Vol] 22 U/L Normal 16-63 [facility] Comment on above: Performed By: #### L IPID, LIVER, BMP #### [facility] [address] [address] [address] Lashell Caballero AST [Catalytic activity/Vol] 17 U/L Normal 15-37 [facility] Comment on above: Performed By: #### L IPID, LIVER, BMP #### [facility] [address] [place] [address] Dr. Lahsell Caballero BILI, CONJUGATED 0.1 mg/dL Normal 0.0-0.2 [facility] Comment on above: Performed By: #### L IPID, LIVER, BMP #### [facility] [address] [place] [address] Dr. Lashell Caballero Bilirubin [Mass/Vol] 0.4 mg/dL Normal 0.2-1.0 [facility] Comment on above: Performed By: #### L IPID, LIVER, BMP #### [facility] [address] [place] [address] Dr. Lashell Caballero Globulin (S) [Mass/Vol] 3.3 g/dL Normal [facility] Comment on above: Performed By: #### L IPID, LIVER, BMP #### [facility] [address] [place] [address] Dr. Lashell Caballero Protein [Mass/Vol] 6.8 g/dL Normal 6.4-8.2 [facility] Comment on above: Performed By: #### L IPID, LIVER, BMP #### [facility] [address] [place] [address] Dr. Lashell Caballero PROF CHEM 8 (BAS METB)on Anion gap [Moles/Vol] 12.2 mmol/L Normal [facility] Comment on above: Performed By: #### L IPID, LIVER, BMP #### [facility] [address] [place] [address] Dr. Lashell Caballero Calcium [Mass/Vol] 9.1 mg/dL Normal 8.5-10.1 [facility] Comment on above: Performed By: #### L IPID, LIVER, BMP #### [facility] [address] [place] [address] Dr. Lashell Caballero Chloride [Moles/Vol] 107 mmol/L Normal 98-107 [facility] Comment on above: Performed By: #### L IPID, LIVER, BMP #### [facility] [address] [address] [address] Lashell Caballero CO2 [Moles/Vol] 28.9 mmol/L Normal 21.0-32.0 [facility] Comment on above: Performed By: #### L IPID, LIVER, BMP #### [facility] [address] [address] [address] Lashell Caballero Creatinine [Mass/Vol] 1.68 mg/dL Critically high 0.70-1.30 [facility] Comment on above: Performed By: #### L IPID, LIVER, BMP #### [facility] [address] [address] [address] Lashell Caballero EGFR-AF TRINIDADIAN 48 mL/min/1.73m2 Critically low >=60 [facility] Comment on above: Performed By: #### L IPID, LIVER, BMP #### [facility] [address] [address] [address] Lashell Caballero EGFR-NON AF TRINIDADIAN 40 mL/min/1.73m2 Critically low >=60 [facility] Comment on above: Performed By: #### L IPID, LIVER, BMP #### [facility] [address] [address] [address] Lashell Caballero Glucose [Mass/Vol] 114 mg/dL Critically high 74-[address] [facility] Comment on above: Performed By: #### L IPID, LIVER, BMP #### [facility] [address] [address] [address] Lashell Caballero Potassium [Moles/Vol] 4.1 mmol/L Normal 3.5-5.1 [facility] Comment on above: Performed By: #### L IPID, LIVER, BMP #### [facility] [address] [address] [address] Lashell Caballero Sodium [Moles/Vol] 144 mmol/L Normal 136-145 [facility] Comment on above: Performed By: #### L IPID, LIVER, BMP #### [facility] [address] [address] [address] Lashell Caballero Urea nitrogen [Mass/Vol] 25.0 mg/dL Critically high 7.0-18.0 [facility] Comment on above: Performed By: #### L IPID, LIVER, BMP #### [facility] [address] [address] [address] Lashell Caballero Urea nitrogen/Creatinine [Mass ratio] 14.9 mg/mg Normal [facility] Comment on above: Performed By: #### L IPID, LIVER, BMP #### [facility] [address] [address] [address] Lashell Caballero VITAMIN B12on 03-10-2023 Cobalamin (Vitamin B12) [Mass/Vol] 368.0 pg/mL Normal 193.0-986.0 [facility] Comment on above: Performed By: #### F OL, IRON #### [facility] [address] [address] [address] Lashell Caballero Office Visit (Cardiology)on 12-14-2022 Follow-up visit Diagnoses/Problems Assessed Atherosclerosis of coronary artery of [place] heart without angina pectoris (414.01) (I25.10) Status [...] (C43.59) Orders Atherosclerosis of coronary artery of [place] heart without angina pectoris Renew: Aspirin EC 81 MG Oral Tablet Delayed Release; TAKE 1 TABLET DAILY Atherosclerosis of coronary artery of [place] heart without angina pectoris, Hyperlipidemia Renew: Pravastatin Sodium 80 MG Oral Tablet; TAKE 1 TABLET DAILY Atherosclerosis of coronary artery of [place] grande heart without angina pectoris, Status post angioplasty [...] above anatomy with known occlusions of the capitan grande RCA and circumflex, patent LAD and stents [...] cardiovascular events. He has underlying history of [place] Heart Association class II/C heart failure, COPD, [...] systems have (more content not included)... Normal [employer] Tobacco Screening.on 023 Adult depression screening assessment No [facility] [employer] [place] [address] DO Work Phone: Fall risk assessment a) No falls within the last year [facility] [employer] [place] [address] DO Work Phone: Tobacco use status CP b) No [facility] [employer] [place] [address] DO Work Phone: Tobacco Screening.on 022 Fall risk assessment a) [facility] the [facility]: Tobacco use status CPHS b) No [facility] [employer] 100 Work Phone: CBC AUTO DIFFon 09-02-2022 BASO # 0.0 103/ul Normal 0.0-0.1 [facility] Comment on above: Performed By: #### C BC #### [facility] [address] [place] [address] Dr. Lashell Caballero Basophils/100 WBC (Bld) 0.3 % Normal 0.2-2.0 [facility] Comment on above: Performed By: #### C BC #### [facility] [address] [place] [address] Dr. Lashell Caballero EO # 0.1 103/ul Normal 0.0-0.7 [facility] Comment on above: Performed By: #### C BC #### [facility] [address] [place] [address] Dr. Lashell Caballero Eosinophils/100 WBC (Bld) 1.4 % Normal 0.9-7.0 [facility] Comment on above: Performed By: #### C BC #### [facility] [address] [place] [address] Dr. Lashell Caballero Erythrocyte distribution width (RBC) [Ratio] 13.2 % Normal 11.0-15.0 [facility] Comment on above: Performed By: #### C BC #### [facility] [address] [place] [address] Dr. Lashell Caballero Hematocrit (Bld) [Volume fraction] 42.6 % Normal 42.0-54.0 [facility] Comment on above: Performed By: #### C BC #### [facility] [address] [place] [address] Dr. Lashell Caballero Hemoglobin (Bld) [Mass/Vol] 13.9 g/dL Critically low 14.0-18.0 [facility] Comment on above: Performed By: #### C BC #### [facility] [address] [place] [address] Dr. Lashell Caballero IG # 0.01 10e3/ul Normal 0.00-0.03 [facility] Comment on above: Performed By: #### C BC #### [facility] [address] [place] [address] Dr. Lashell Caballero IG % 0.1 % Normal 0.0-0.5 [facility] Comment on above: Performed By: #### C BC #### [facility] [address] [place] [address] Dr. Lashell Caballero LYMPH # 2.3 103/ul Normal 1.2-3.8 [facility] Comment on above: Performed By: #### C BC #### [facility] [address] [place] [address] Dr. Lashell Caballero Lymphocytes/100 WBC (Bld) 33.6 % Normal 20.5-60.0 [facility] Comment on above: Performed By: #### C BC #### [facility] [address] [place] [address] Dr. Lashell Caballero MANUAL DIFF REQ NO Normal [facility] Comment on above: Performed By: #### C BC #### [facility] [address] [place] [address] Dr. Lashell Caballero MCH (RBC) [Entitic mass] 31.2 pg Normal 25.9-34.0 [facility] Comment on above: Performed By: #### C BC #### [facility] [address] [place] [address] Dr. Lasehll Caballero MCHC (RBC) [Mass/Vol] 32.6 g/dL Normal 29.9-35.2 [facility] Comment on above: Performed By: #### C BC #### [facility] [address] [place] [address] Dr. Lashell Caballero MCV (RBC) [Entitic vol] 95.7 fL Critically high 80.0-94.0 [facility] Comment on above: Performed By: #### C BC #### [facility] [address] [place] [address] Dr. Lashell Caballero MONO # 0.5 103/ul Normal 0.3-0.8 [facility] Comment on above: Performed By: #### C BC #### [facility] [address] [place] [address] Dr. Lashell Caballero Monocytes/100 WBC (Bld) 7.5 % Normal 1.7-12.0 [facility] Comment on above: Performed By: #### C BC #### [facility] [address] [place] [address] Dr. Lashell Caballero NEUT # 4.0 103/ul Normal 1.4-6.5 [facility] Comment on above: Performed By: #### C BC #### [facility] [address] [place] [address] Dr. Lashell Caballero Neutrophils/100 WBC (Bld) 57.1 % Normal 43.0-75.0 [facility] Comment on above: Performed By: #### C BC #### [facility] [address] [place] [address] Dr. Lashell Caballero Platelet mean volume (Bld) [Entitic vol] 9.7 fL Normal 9.5-13.5 [facility] Comment on above: Performed By: #### C BC #### [facility] [address] [place] [address] Dr. Lashell Caballero PLT 205 103/ul Normal 150-450 [facility] Comment on above: Performed By: #### C BC #### [facility] [address] [place] [address] Dr. Lashell Caballero RBC 4.45 106/ul Critically low 4.70-6.10 [facility] Comment on above: Performed By: #### C BC #### [facility] [address] [place] [address] Dr. Lashell Caballero WBC 7.0 103/ul Normal 4.0-11.0 [facility] Comment on above: Performed By: #### C BC #### [facility] [address] [place] [address] Dr. Lashell Caballero FOLATEon 09-02-2022 FOLATE 13.90 ng/mL Normal 8.60-58.90 [facility] Comment on above: Performed By: #### F OL, IRON #### [facility] [address] [place] [address] Dr. Lashell Caballero GLYCOHEMOGLOBIN A1Con 2021 ADA RECOMMENDATION SEE BELOW Normal [facility] Comment on above: Result Comment: ADA RECOMMENDED LIMIT 4.0 - 6.0 ADA THERAPEUTIC TARGET < 7.0 ACTION SUGGESTED > 7.0 Performed By: #### A 1C #### [facility] [address] [place] [address] Dr. Lashell Caballero Glucose [Mass/Vol] 140 mg/dL Normal [facility] Comment on above: Performed By: #### A 1C #### [facility] [address] [place] [address] Dr. Lashell Caballero HbA1c (Bld) [Mass fraction] 6.5 % Critically high 4.5-6.2 [facility] Comment on above: Performed By: #### A 1C #### [facility] [address] [place] [address] Dr. Lashell Caballero IRONon 09-02-2022 Iron [Mass/Vol] 64.0 ug/dL Critically low 65.0-175.0 [facility] Comment on above: Performed By: #### F OL, IRON #### [facility] [address] [place] [address] Dr. Lashell Caballero LIPID PROFILEon 09-02-2022 CHOL-HDL RATIO NORM SEE BELOW Normal [facility] Comment on above: Result Comment: 3.3 - 4.4 LOW RISK 4.4 - 7.1 AVERAGE RISK 7.1 - 11.0 MODERATE RISK >11.0 HIGH RISK Performed By: #### B MP, LIPID #### [facility] [address] [place] [address] Dr. Lashell Caballero Cholesterol [Mass/Vol] 139 mg/dL Normal <=200 [facility] Comment on above: Performed By: #### B MP, LIPID #### [facility] [address] [place] [address] Dr. Lashell Caballero Cholesterol in HDL [Mass/Vol] 51 mg/dL Normal 40-60 [facility] Comment on above: Performed By: #### B MP, LIPID #### [facility] [address] [place] [address] Dr. Lashell Caballero Cholesterol in LDL [Mass/Vol] 68.2 mg/dL Normal [facility] Comment on above: Performed By: #### B MP, LIPID #### [facility] [address] [address] [address] Lashell Caballero Cholesterol.total/Cho lesterol in HDL [Mass ratio] 2.7 {ratio} Normal [facility] Comment on above: Performed By: #### B MP, LIPID #### [facility] [address] [address] [address] Lashell Caballero HDL NORMAL > or = 60 mg/dl - LO W CARDIOVASCULAR RISK <40 mg/dl - HIGH CARDIOVASCULAR RISK Normal [facility] Comment on above: Performed By: #### B MP, LIPID #### [facility] [address] [address] [address] Lashell Caballero LDL CALC NORMAL SEE BELOW Normal [facility] Comment on above: Result Comment: <100 mg/dl OPTIMAL 100 - 129 mg/dl NEAR OR ABOVE OPTIMAL 130 - 159 mg/dl BORDERLINE HIGH 160 - 189 mg/dl HIGH >190 mg/dl VERY HIGH Performed By: #### B MP, LIPID #### [facility] [address] [address] [address] Lashell Caballero Triglyceride [Mass/Vol] 99 mg/dL Normal <=150 [facility] Comment on above: Performed By: #### B MP, LIPID #### [facility] [address] [address] [address] Lashell Caballero VLDL CALC 19.8 mg/dL Normal [facility] Comment on above: Performed By: #### B MP, LIPID #### [facility] [address] [address] [address] Lashell Caballero PROF CHEM 8 (BAS METB)on Anion gap [Moles/Vol] 12.3 mmol/L Normal [facility] Comment on above: Performed By: #### B MP, LIPID #### [facility] [address] [place] [address] Dr. Lashell Caballero Calcium [Mass/Vol] 9.2 mg/dL Normal 8.5-10.1 [facility] Comment on above: Performed By: #### B MP, LIPID #### [facility] [address] [address] [address] Lashell Caballero Chloride [Moles/Vol] 103 mmol/L Normal 98-107 [facility] Comment on above: Performed By: #### B MP, LIPID #### [facility] [address] [address] [address] Lashell Caballero CO2 [Moles/Vol] 29.9 mmol/L Normal 21.0-32.0 [facility] Comment on above: Performed By: #### B MP, LIPID #### [facility] [address] [address] [address] Lashell Caballero Creatinine [Mass/Vol] 1.48 mg/dL Critically high 0.70-1.30 [facility] Comment on above: Performed By: #### B MP, LIPID #### [facility] [address] [place] [address] Dr. Lashell Caballero EGFR-AF TRINIDADIAN 56 mL/min/1.73m2 Critically low >=60 [facility] Comment on above: Performed By: #### B MP, LIPID #### [facility] [address] [place] [address] Dr. Lashell Caballero EGFR-NON AF TRINIDADIAN 46 mL/min/1.73m2 Critically low >=60 [facility] Comment on above: Performed By: #### B MP, LIPID #### [facility] [address] [place] [address] Dr. Lashell Caballero Glucose [Mass/Vol] 101 mg/dL Normal 74-106 [facility] Comment on above: Performed By: #### B MP, LIPID #### [facility] [address] [address] [address] Lashell Caballero Potassium [Moles/Vol] 4.2 mmol/L Normal 3.5-5.1 [facility] Comment on above: Performed By: #### B MP, LIPID #### [facility] [address] [address] [address] Lashell Caballero Sodium [Moles/Vol] 141 mmol/L Normal 136-145 [facility] Comment on above: Performed By: #### B MP, LIPID #### [facility] [address] [place], [place] [address] Dr. Lashell Caballero Urea nitrogen [Mass/Vol] 21.0 mg/dL Critically high 7.0-18.0 [facility] Comment on above: Performed By: #### B MP, LIPID #### [facility] [address] [place], [place] [address] Dr. Lashell Caballero Urea nitrogen/Creatinine [Mass ratio] 14.2 mg/mg Normal [facility] Comment on above: Performed By: #### B MP, LIPID #### [facility] [address] [place], [place] [address] Dr. Lashell Caballero Dermatopathologyon 2 Dermatopathology Name JUNIOR TORRES Pathologist: LEONOR LÓPEZ MD Date of Procedure: 08/16/2022 Date Received: 08/17/2022 Date Reported 08/19/2022 Submitting Physician: ОЛЬГА BROWN MD Location: [facility] Other External # FINAL DIAGNOSIS SKIN, LEFT UPPER BACK MELANOMA RE EXCISION: DERMAL NEVUS, INKED MARGINS FREE IN PLANES OF SECTIONS EXAMINED AND CHANGES CONSISTENT WITH PREVIOUS PROCEDURE, PRESENT ON THE DEEP AND PERIPHERAL MARGIN. Electronically Signed Out by LEONOR LÓPEZ M.D. Electronically Signed Out By LEONOR LÓPEZ MD/[facility] By the signature on this report, the individual or group listed as making the Final Interpretation/Diagnosis certifies that they have reviewed this case. Diagnostic interpretation performed at [facility] [id number], [facility] [address] Microscopic Description: Microscopic analysis shows a symmetric, [...] and embedded in toto in four blocks. [facility]/08/18/2022 [facility] Dermatopathology [facility] [place] [id number] [place] [address] [facility] Comment on above: Performed By: #### D #### Dermatopathology No Panel Informationon 08-16 [facility] [employer] 100 Work Phone: Tobacco Screening.on Fall risk assessment a) No falls within the last year [facility] [place] Work Phone: Tobacco use status CPHS b) No [facility] [place] Work Phone: Tobacco Screening.on Fall risk assessment a) No falls within the last year [facility] erst Work Phone: Tobacco use status CP b) No [facility] erst Work Phone: Tobacco Screening. Large [facility] erst Work Phone: Dermatopathologyon Dermatopathology Name JUNIOR TORRES Pathologist: LEONOR LÓPEZ MD Date of Procedure: 07/07/2022 Date Received: 07/11/2022 Date Reported 07/14/2022 Submitting Physician: ОЛЬГА BROWN MD Location: [facility] External # FINAL DIAGNOSIS A. SKIN, LEFT [...] determined by the Department of Pathology at [facility]. The FDA does not require this test [...] appropriately. Electronically Signed Out By LEONOR LÓPEZ MD/[facility] By the signature on this report, the individual or group listed as making the Final Interpretation/Diagnosis certifies that they have reviewed this case. Diagnostic interpretation performed at [facility] [address] [id number], [facility] [address] Microscopic Description: A. Microscopic examination reveals a [...] superior, long stitch lateral. Melanoma. Excision. B: [place] lymph node #1 count 1055. Melanoma. Specimens Submitted As: A: SKIN, LEFT UPPER BACK B: NODE, LEFT AXILLARY SENTINEL LYMPH NODE #1 COUNT 1055 Gross Description: A: Received in formalin is a park ellipse of skin measuring [id number], oriented by the surgeon with a short [...] o'clock. B: Received in formalin is one goo-nmxxk-dgflrn irregularly shaped piece of skin measuring [id number]. The specimen is inked and embedded in toto. 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 COMPARISON: None. ACCESSION NUMBER(S): [id number]; [id number] ORDERING CLINICIAN: ОЛЬГА BROWN TECHNIQUE: DIVISION OF NUCLEAR MEDICINE RADIONUCLIDE SENTINEL LYMPH NODE LYMPHOSCINTIGRAPHY A total of 1.003 millicuries of Tc-99m tilmanocept (LymphoseDeliveryChef.in) was injected intradermally in a circumferential pattern [...] as stated. This study was interpreted at [facility], [place], [place]. Electronically signed by: HAILEE AGUDELO MD Normal [facility] NM Lymph Glandon 07-07-2022 NM Lymph node Views Normal [facility] Work Phone: NM Tumor Loc Spec/CTon 07-07 NM Tumor Loc Spec/CT Normal [facility] Work Phone: No Panel Informationon 07-07 [facility] erst Work Phone: Order Reconciliationon 07-07 Order Reconciliation Page 1 Discharge Reconciliation Document Reconciliation Type: Discharge requested on behalf of Lavelle Foley (Resident) done by Lavelle Foley ( (Resident)) Discharge - Reconciliation: 07-Jul-2022 18:26 by: Lavelle Foley ( (Resident)) Discharge - Reset to Incomplete: 07-Jul-2022 18:27 by: Lavelle Foley ( (Resident)) Discharge - Reconciliation: 07-Jul-2022 18:27 by: Lavelle Foley ( (Resident)) Home Medications EnteredHOME MEDICATIONS AT DISCHARGE [...] not required (more content not included)... Normal [facility] Patient Profile - Preop v3on 07-07-2022 Patient Profile - Preop v3 This report has been cancelled. 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 COMPARISON: None. ACCESSION NUMBER(S): [id number]; [id number] ORDERING CLINICIAN: ОЛЬГА BROWN TECHNIQUE: DIVISION OF NUCLEAR MEDICINE RADIONUCLIDE SENTINEL LYMPH NODE LYMPHOSCINTIGRAPHY A total of 1.003 millicuries of Tc-99m tilmanocept (FlameStower) was injected intradermally in a circumferential pattern [...] as stated. This study was interpreted at [facility], [place], [place]. Electronically signed by: HAILEE AGUDELO MD Normal [facility] CORONAVIRUS 2019 BY PCR, SCR EEN ASYMPTOMATIC AMBULATORYon 07-06-2022 SARS-CoV-2 (COVID-19) RNA MARAH+probe Ql (Unsp spec) Not detected Normal Not Detected [facility] Comment on above: Result Comment: . This [...] patient management decisions. Fact sheet for providers: https://www.fda.gov/media/186462/download Fact sheet for patients: https://www.fda.gov/media/640551/download This test has received FDA Emergency Use Authorization (EUA) and has been verified by [facility] ([facility]). This test is only authorized for the duration of time that circumstances exist to justify the authorization of the emergency use of in vitro diagnostic tests for the detection of SARS-CoV-2 virus and/or diagnosis of COVID-19 infection under section 564(b)(1) of the Act, 21 U.S.C. 360bbb-3(b)(1), unless the authorization is terminated or revoked sooner. [facility] is certified under CLIA-88 as qualified to perform high complexity testing. Testing is performed in the [facility] laboratories located at [address] [place] [address]. Performed By: #### C OVSA #### [address] [place] [address] Covid 19 Resultson 2 SARS-CoV-2 (COVID-19) RNA [...] You may also be contacted by the [facility] to see if any of your close [...] or Naproxen (Aleve) can also be used. Mphx-tvm-kwntinw cough and cold medicines can be used according to the instructions on the package. Some eewy-rdy-rzwmksw medicines also contain acetaminophen. Make sure you [...] water are not available, use alcohol-based hand habilitation assistant. Avoid touching your eyes, nose, and mouth [...] 24 tayla (more content not included)... Normal [facility] BASIC METABOLIC PANELon 08-2 Anion gap [Moles/Vol] 10 mmol/L Normal 10 - 20 [facility] Comment on above: Performed By: #### B MP #### [address] [address] Calcium [Mass/Vol] 9.2 mg/dL Normal 8.6 - 10.3 [facility] Comment on above: Performed By: #### B MP #### [address] [address] Chloride [Moles/Vol] 104 mmol/L Normal 98 - 107 [facility] Comment on above: Performed By: #### B MP #### [address] [address] Creatinine [Mass/Vol] 1.66 mg/dL High 0.50 - 1.30 [facility] Comment on above: Performed By: #### B MP #### [address] [address] GFR/1.73 sq M.predicted among non-blacks MDRD (S/P/Bld) [Vol rate/Area] 42 mL/min/{1.73_m2} Abnormal >90 [facility] Comment on above: Result Comment: CALC ULATIONS OF ESTIMATED GFR ARE PERFORMED USING THE 2020 CKD-EPI STUDY REFIT EQUATION WITHOUT THE RACE VARIABLE FOR THE IDMS-TRACEABLE CREATININE METHODS. https://jasn.asnjournals.org/content//ASN.091492 2396 Performed By: #### B MP #### [address] [address] Glucose [Mass/Vol] 90 mg/dL Normal 74 - 99 [facility] Comment on above: Performed By: #### B MP #### [address] [address] HCO3 (Bld) [Moles/Vol] 29 mmol/L Normal 21 - 32 [facility] Comment on above: Performed By: #### B MP #### [address] [address] Potassium [Moles/Vol] 4.1 mmol/L Normal 3.5 - 5.3 [facility] Comment on above: Performed By: #### B MP #### [address] [address] Sodium [Moles/Vol] 139 mmol/L Normal 136 - 145 [facility] Comment on above: Performed By: #### B MP #### [address] [address] Urea nitrogen [Mass/Vol] 25 mg/dL High 6 - 23 [facility] Comment on above: Performed By: #### B MP #### [address] [address] CORONAVIRUS 2019 BY PCR, SCR EEN ASYMPTOMATIC AMBULATORYon 07-05-2022 Lab Specimen Source Nasal, Nasopharyngeal Normal [facility] Comment on above: Performed By: #### C OVSA #### [facility] [address] [place] [address] Electrocardiogram 12 Leadon 07-05-2022 Electrocardiogram 12 Lead Ventricular Rate 46 Atrial Rate 46 P-R Interval 212 QRS Duration 94 Q-T Interval 440 QTC Calculation(Bazett) 385 P Layton 53 R Layton 17 T Layton 116 QRS Count 7 Q Onset 223 P Onset 117 P Offset 172 T Offset 443 QTC Fredericia 402 Diagnosis Class Abnormal Diagnosis Marked sinus bradycardia with 1st degree AV block Nonspecific T wave abnormality Abnormal ECG No previous ECGs available Confirmed by Cleveland Sheth ([id number]) on 07/12/2022 10:02:02 PM Normal [facility] Laboratory - Chemistry and C hemistry - challengeon 07-05-2022 Anion gap [Moles/Vol] 10 mmol/L 10 - 20 [facility] Work Phone: [phone] Calcium [Mass/Vol] 9.2 mg/dL 8.6 - 10.3 [facility] Work Phone: [phone] Chloride [Moles/Vol] 104 mmol/L 98 - 107 [facility] Work Phone: [phone] CO2 [Moles/Vol] 29 mmol/L 21 - 32 [facility] Work Phone: [phone] Creatinine [Mass/Vol] 1.66 mg/dL above high threshold See Below LV-Bncrkxh-W [facility] Work Phone: [phone] Comment on above: Reference Range: 0.5 0 - 1.30 Glucose [Mass/Vol] 90 mg/dL 74 - 99 [facility] Work Phone: [phone] Potassium [Moles/Vol] 4.1 mmol/L 3.5 - 5.3 [facility]- [facility]S [facility] [facility] Work Phone: [phone] Sodium [Moles/Vol] 139 mmol/L 136 - 145 [facility] Work Phone: Urea nitrogen [Mass/Vol] 25 mg/dL above high threshold 6 - 23 UG-Bobwrgv-U [facility] Work Phone: No Panel Informationon 07-05 Not detected Normal See Below BX-Mezbqas-W [facility] Work Phone: Comment on above: [...] make patient management decisions.Fact sheet for providers: https://www.fda.gov/media/925671/downloadFact sheet for patients: https://www.fda.gov/media/633159/downloadThis test has received FDA Emergency Use Authorization (EUA) and has been verified by [facility] ([facility]). This test is only authorized for the duration of time that circumstances exist to justify the authorization of the emergency use of in vitro diagnostic tests for the detection of SARS-CoV-2 virus and/or diagnosis of COVID-19 infection under section 564(b)(1) of the Act, 21 U.S.C. 360bbb-3(b)(1), unless the authorization is terminated or revoked sooner. [facility] is certified under CLIA-88 as qualified to perform high complexity testing. Testing is performed in the [facility] laboratories located at [address] [place] [address]. 42 {mL/min/1.73m2} Abnormal >90 [facility] Work Phone: Comment on above: CALCULATIONS OF YADIEL MATED GFR ARE PERFORMED USING THE 2020 CKD-EPI STUDY REFIT EQUATION WITHOUT THE RACE VARIABLE FOR THE IDMS-TRACEABLE CREATININE METHODS.https://jasn.asnjournals.org/content// N.4530731581 https://UHMUSEXPRDWE B01:8 080/cristobal/museweb.d ll?RetrieveTestByDateTime ?NxnjcksQF=[id number]&Date =05-07-2022&Time=10%3a10% 3a53%3a00&TestType=ECG&Si te=12&OutputType=PDF&Ext= PDF [facility] [facility] DO Work Phone: [phone] Marked sinus bradyca rdia with 1st degree AV block -[facility] [facility] DO Work Phone: [phone] Abnormal -[facility] [facility] DO Work Phone: [phone] [facility] [facility] DO Work Phone: [phone] [facility] [facility] DO Work Phone: [phone] [facility] [facility] DO Work Phone: [phone] [facility] [facility] DO Work Phone: [phone] [facility] [facility] DO Work Phone: 7 1 [facility] [facility] DO Work Phone: [phone] 1 [facility] [facility] DO Work Phone: 17 1 [facility] [facility] DO Work Phone: [phone] [facility] [facility] DO Work Phone: [phone] [facility] [facility] DO Work Phone: [phone] [facility] [facility] DO Work Phone: [phone] 1 [facility] [facility] DO Work Phone: [phone] [facility] [facility] DO Work Phone: [phone] [facility] [facility] DO Work Phone: Tobacco Screening.on 022 Fall risk assessment a) No falls within the last year [facility] Work Phone: Tobacco use status CPHS b) No PY[facility]Lppwxeu[facility] Work Phone: Dermatopathologyon Dermatopathology Name: TREVER TORRES Pathologist: LEONOR LÓPEZ MD Date of Procedure: 06/16/2022 Date Received: 06/16/2022 Date Reported 06/23/2022 Submitting Physician: ОЛЬГА BROWN MD Location: [facility] Copy To/Referring/Attending: JULITA OWEN MD FINAL DIAGNOSIS 1 SLIDE, [facility] #[id number] (BX: 06/06/2022) SKIN, LEFT UPPER BACK, SHAVE [...] M.D. CANCER SUMMARY REPORT A. 2 SLIDES, [facility] #[id number] (BX: 06/06/2022): SPECIMEN Procedure: Biopsy, shave Specimen [...] ADDITIONAL FINDINGS Additional Findings: None ADDITIONAL TESTING Neuropathologist Blocks: Normal Block: A1 Tumor Block: A2 Electronically Signed Out By LEONOR LÓPEZ MD/ROMAINE Diagnostic interpretation performed at [facility] [address] [id number], [facility] [address] Clinical History: SHAVE/ 0.4X0.4CM MELANOMA VS ATYPICAL NEVUS Specimens Submitted As: A: 2 SLIDES, [facility] #[id number] (BX: 06/06/2022) Gross Description: Received for consultation from [facility] is one slide labeled [id number] (BX: 06/06/2022) along with the corresponding pathology report. One H+E slide for block 2 received 06/23/22 upon request. Slide/Block Description 1 SLIDE, [id number]. Keep Slides: N Slides Returned: N Personal Consult: N Normal [facility] Comment on above: Performed By: #### D #### Dermatopathology No Panel Informationon 06-16 SL-Axlocfp-Y [facility] Work Phone: Tobacco Screening.on 022 Adult depression screening assessment No [facility] [employer] [address] DO Work Phone: Fall risk assessment a) No falls within the last year [facility] [place] [facility] [facility] [place] Work Phone: Tobacco use status CPHS b) No [facility] [place] [facility] DO Work Phone: Tobacco Screening.on Fall risk assessment a) No falls within the last year [facility] Elaine Carroll DO Work Phone: [phone] Heart Rate Regular [facility] Elaine Carroll DO Work Phone: [phone] Tobacco use status CPHS b) No [facility] Elaine Carroll DO Work Phone: [phone] Tobacco Screening.on Fall risk assessment a) No falls within the last year [facility] Elaine Carroll DO Work Phone: [phone] Tobacco use status CPHS b) No [facility] Elaine Carroll DO Work Phone: [phone] [facility] MUGA SCAN INJECTIONon [facility] MUGA SCAN INJECTION Patient Name: JUNIOR TORRES STUDY: MUGA SCAN INJECTION; MUGA (GATED CARDIAC BLOOD POOL); 06/11/2020 3:13 pm; 06/11/2020 3:17 pm Performing facility: [facility], [address] [place], [place] [id number] Patient name: JUNIOR TORRES Gender: M Age: 75 y/o Height: 70 ; Weight: 192lbs; BMI: INDICATION: MUGA. Ischemic Cardiomyopathy HISTORY: HTN, CAD, FAMILY HX CAD, CABG 1994, CATH 2018 COMPARISON: None. ACCESSION NUMBER(S): [id number]; [id number] ORDERING CLINICIAN: BUD CARLIN TECHNIQUE: The patient's [...] are available for comparison Electronically signed by: JIMMIE MATA MD [facility] Vital Signs Date Time Vital Sign Value Performing Clinician Facility 08-26-2024 13:30-0400 Diastolic blood pressure 96 mm[Hg] DO Hayden Oberer Work Phone: [facility] 08-26-2024 13:30-0400 Heart rate 67 /min DO Hayden Oberer Work Phone: [facility] 08-26-2024 13:30-0400 Respiratory rate 16 /min DO Hayden Oberer Work Phone: [facility] 08-26-2024 13:30-0400 SaO2% (BldA) [Mass fraction] 98 % DO Hayden Oberer Work Phone: [phone] [place] [address] 08-26-2024 13:30-0400 Systolic blood pressure 154 mm[Hg] DO Hayden Oberer Work Phone: [phone] [place] [address] 08-26-2024 12:01-0400 Body height 177.8 cm DO Hayden Oberer Work Phone: [facility] 08-26-2024 12:01-0400 Body weight 77.11 kg DO Hayden Oberer Work Phone: [facility] 07-31-2024 13:13-0400 Body height 180.34 cm Ольга Papo Work Phone: [facility] 07-31-2024 13:13-0400 Body mass index (BMI) [Ratio] 34.1 kg/m2 Ольга Barros Work Phone: [facility] 07-31-2024 13:13-0400 Body weight 111 kg Ольга Barros Work Phone: [facility] 04-02-2024 13:40-0400 Body height 177.8 cm Bud Carlin DO Work Phone: [facility] 04-02-2024 13:40-0400 Body mass index (BMI) [Ratio] 25.4 kg/m2 Bud Carlin DO Work Phone: [facility] 04-02-2024 13:40-0400 Body weight 80.29 kg Bud Carlin DO Work Phone: [facility] 04-02-2024 13:40-0400 Diastolic blood pressure 50 mm[Hg] Bud Carlin DO Work Phone: [facility] 04-02-2024 13:40-0400 Heart rate 72 /min Bud Carlin DO Work Phone: [facility] 04-02-2024 13:40-0400 Systolic blood pressure 100 mm[Hg] Bud Carlin DO Work Phone: [facility] 03-15-2024 13:53-0400 Diastolic blood pressure 77 mm[Hg] Ольга Barros Work Phone: [facility] 03-15-2024 13:53-0400 Systolic blood pressure 159 mm[Hg] Ольга Barros Work Phone: [facility] 03-15-2024 13:50-0400 Body height 180.34 cm Ольга Barros Work Phone: [facility] 03-15-2024 13:50-0400 Body mass index (BMI) [Ratio] 24.5 kg/m2 Ольга Barros Work Phone: [facility] 03-15-2024 13:50-0400 Body temperature 98 [degF] Ольга Barros Work Phone: [facility] 03-15-2024 13:50-0400 Body weight 79.97 kg Ольга Barros Work Phone: [facility] 03-15-2024 13:50-0400 Heart rate 47 /min Ольга Barros Work Phone: [facility] 03-15-2024 13:50-0400 Respiratory rate 16 /min Ольга Barros Work Phone: [facility] 03-15-2024 13:50-0400 SaO2% (BldA) [Mass fraction] 100 % Ольга Barros Work Phone: [facility] 02-13-2024 14:12-0400 Diastolic blood pressure 61 mm[Hg] Ольга Barros Work Phone: [facility] 02-13-2024 14:12-0400 Respiratory rate 16 /min Ольга Barros Work Phone: [facility] 02-13-2024 14:12-0400 Systolic blood pressure 141 mm[Hg] Ольга Barros Work Phone: [facility] 02-13-2024 14:07-0400 Body height 180.34 cm Ольга Barros Work Phone: [facility] 02-13-2024 14:07-0400 Body mass index (BMI) [Ratio] 24.5 kg/m2 Ольга Barros Work Phone: [facility] 02-13-2024 14:07-0400 Body temperature 96.3 [degF] Ольга Barros Work Phone: [facility] 02-13-2024 14:07-0400 Body weight 79.63 kg Ольга Barros Work Phone: [facility] 02-13-2024 14:07-0400 Heart rate 42 /min Ольга Barros Work Phone: [facility] 02-13-2024 14:07-0400 SaO2% (BldA) [Mass fraction] 98 % Ольга Barros Work Phone: [facility] 12-20-2023 14:41-0500 Body height 177.8 cm Bud Carlin DO Work Phone: [facility] 12-20-2023 14:41-0500 Body mass index (BMI) [Ratio] 25.54 kg/m2 Bud Carlin DO Work Phone: [facility] 12-20-2023 14:41-0500 Body weight 80.74 kg Bud Carlin DO Work Phone: [facility] 12-20-2023 14:41-0500 Diastolic blood pressure 62 mm[Hg] Bud Carlin DO Work Phone: [facility] 12-20-2023 14:41-0500 Heart rate 50 /min Bud Cariln DO Work Phone: [facility] 12-20-2023 14:41-0500 Systolic blood pressure 120 mm[Hg] Bud Carlin DO Work Phone: [facility] 03-14-2023 15:00-0400 Body mass index (BMI) [Ratio] 25.59 kg/m2 Hayden Oberer Other [facility] Other 03-14-2023 15:00-0400 Body temperature 97.7 [degF] Hayden Oberer Other [facility] Other 03-14-2023 15:00-0400 Body weight 83.24 kg Hayden Oberer Other [facility] Other 03-14-2023 15:00-0400 Diastolic blood pressure 50 mm[Hg] Hayden Oberer Other [facility] Other 03-14-2023 15:00-0400 Respiratory rate 16 /min Hayden Oberer Other [facility] Other 03-14-2023 15:00-0400 SaO2% (BldA) [Mass fraction] 97 % Hayden Oberer Other [facility] Other 03-14-2023 15:00-0400 Systolic blood pressure 100 mm[Hg] Hayden Oberer Other [facility] Other 03-14-2023 11:15-0400 Body height 180.34 cm Jacob Marrero Other [facility] Other 03-14-2023 11:15-0400 Body mass index (BMI) [Ratio] 25.38 kg/m2 Kevaida IsabelJanes Other [facility] Other 03-14-2023 11:15-0400 Body temperature 96.7 [degF] Kevaida IsabelJanes Other [facility] Other 03-14-2023 11:15-0400 Body weight 82.56 kg Marvinruth ann Isabeldano Other [facility] Other 03-14-2023 11:15-0400 Diastolic blood pressure 70 mm[Hg] Kevaida IsabelJanes Other [facility] Other 03-14-2023 11:15-0400 Respiratory rate 20 /min Kevaida IsabelJanes Other [facility] Other 03-14-2023 11:15-0400 SaO2% (BldA) [Mass fraction] 98 % Jacob Janes Other [facility] Other 03-14-2023 11:15-0400 Systolic blood pressure 120 mm[Hg] Jacob Isabeldano Other [facility] Other 01-18-2023 14:15-0500 Body height 180.34 cm Crescencio Mendez Other [facility] Other 01-18-2023 14:15-0500 Body mass index (BMI) [Ratio] 25.66 kg/m2 Crescencio Mendez Other [facility] Other 01-18-2023 14:15-0500 Body weight 83.46 kg Crescencio Mendez Other [facility] [employer] Other 01-18-2023 14:15-0500 Diastolic blood pressure 70 mm[Hg] Crescencio Mendez Other [facility] [employer] Other 01-18-2023 14:15-0500 Respiratory rate 18 /min Crescencio Mendez Other [facility] [employer] Other 01-18-2023 14:15-0500 Systolic blood pressure 142 mm[Hg] Crescencoi Mendez Other [facility] [employer] Other 12-14-2022 11:33-0500 Body height 177.8 cm Hayden L Oberer Work Phone: [facility] [employer] 250 DO Work Phone: 12-14-2022 11:33-0500 Body mass index (BMI) [Ratio] 26.26 kg/m2 Hayden L Oberer Work Phone: [facility] [employer] [facility] DO Work Phone: 12-14-2022 11:33-0500 Body surface area Derived from formula 2.01 m2 Hayden L Oberer Work Phone: [facility] [employer] [facility] DO Work Phone: 12-14-2022 11:33-0500 Body weight 83.01 kg Hayden L Oberer Work Phone: [facility] [employer] [facility] DO Work Phone: 12-14-2022 11:33-0500 Diastolic blood pressure 60 mm[Hg] Hayden L Oberer Work Phone: [facility] [employer] [facility] DO Work Phone: 12-14-2022 11:33-0500 Heart rate 54 /min Hayden L Oberer Work Phone: [facility] [employer] 250 DO Work Phone: 12-14-2022 11:33-0500 Systolic blood pressure 134 mm[Hg] Hayden L Oberer Work Phone: [facility] [employer] 250 DO Work Phone: 09-13-2022 14:15-0400 Body height 180.34 cm Hayden Oberer Other [facility] Other 09-13-2022 14:15-0400 Body mass index (BMI) [Ratio] 25.84 kg/m2 Hayden Oberer Other [facility] Other 09-13-2022 14:15-0400 Body temperature 98.2 [degF] Hayden Oberer Other [facility] Other 09-13-2022 14:15-0400 Body weight 84.05 kg Hayden Oberer Other [facility] Other 09-13-2022 14:15-0400 Diastolic blood pressure 70 mm[Hg] Hayden Oberer Other [facility] Other 09-13-2022 14:15-0400 Respiratory rate 16 /min Hayden Oberer Other [facility] Other 09-13-2022 14:15-0400 SaO2% (BldA) [Mass fraction] 98 % Hayden Oberer Other [facility] Other 09-13-2022 14:15-0400 Systolic blood pressure 145 mm[Hg] Hayden Oberer Other [facility] Other 09-06-2022 12:38-0400 Body height 177.8 cm Hayden L [facility] Work Phone: 09-06-2022 12:38-0400 Body mass index (BMI) [Ratio] 26.4 kg/m2 Hayden L Oberer Work Phone: [facility] Work Phone: 09-06-2022 12:38-0400 Body surface area Derived from formula 2.01 m2 Hayden L Oberer Work Phone: [facility] Work Phone: 09-06-2022 12:38-0400 Body temperature 97.7 [degF] Hayden L Oberer Work Phone: [facility] Work Phone: 09-06-2022 12:38-0400 Body weight 83.46 kg Hayden L Oberer Work Phone: [facility] Work Phone: 09-06-2022 12:38-0400 Diastolic blood pressure 69 mm[Hg] Hayden L Oberer Work Phone: [facility] Work Phone: 09-06-2022 12:38-0400 Heart rate 57 /min Hayden L Oberer Work Phone: [facility] Work Phone: 09-06-2022 12:38-0400 Respiratory rate 18 /min Hayden L Oberer Work Phone: [facility] Work Phone: 09-06-2022 12:38-0400 SaO2% (BldA) [Mass fraction] 96 % Hayden L Oberer Work Phone: [facility] 100 Work Phone: 09-06-2022 12:38-0400 Systolic blood pressure 122 mm[Hg] Hayden L Oberer Work Phone: [facility] 100 Work Phone: 08-16-2022 11:53-0400 Body height 177.8 cm Hayden L Oberer Work Phone: PH[facility]Stigjrn-Xvbs [facility] [place] Work Phone: 08-16-2022 11:53-0400 Body mass index (BMI) [Ratio] 26.11 kg/m2 Hayden L Oberer Work Phone: QO-Rorduog-Gbfv [facility] [place] Work Phone: 08-16-2022 11:53-0400 Body surface area Derived from formula 2.01 m2 Hayden L Oberer Work Phone: AL-Hbgnfdd-Jrtx [facility] [place] Work Phone: 08-16-2022 11:53-0400 Body temperature 97.88 [degF] Hayden L Oberer Work Phone: HG-Xtdawtp-Scmr [facility] [place] Work Phone: 08-16-2022 11:53-0400 Body weight 82.56 kg Hayden L Oberer Work Phone: LE-Zxtfmbb-Exfh [facility] [place] Work Phone: 08-16-2022 11:53-0400 Diastolic blood pressure 73 mm[Hg] Hayden L Oberer Work Phone: DJ-Qjjrndj-Nwmy [facility] [place] Work Phone: 08-16-2022 11:53-0400 Heart rate 56 /min Hayden L Oberer Work Phone: HJ-Tckfdut-Efqq [facility] [place] Work Phone: 08-16-2022 11:53-0400 Respiratory rate 18 /min Hayden L Oberer Work Phone: YW-Aspqkgd-Zgfx [facility] [place] Work Phone: 08-16-2022 11:53-0400 SaO2% (BldA) [Mass fraction] 95 % Hayden L Oberer Work Phone: TO-Wravvhk-Ppol [facility] [place] Work Phone: 08-16-2022 11:53-0400 Systolic blood pressure 150 mm[Hg] Hayden L Oberer Work Phone: [place]-Uiawvyt-Zsvg [facility] [place] Work Phone: 07-19-2022 12:47-0400 Body height 177.8 cm Hayden L Oberer Work Phone: [facility] Work Phone: 07-19-2022 12:47-0400 Body mass index (BMI) [Ratio] 25.83 kg/m2 Hayden L Oberer Work Phone: [facility] Work Phone: 07-19-2022 12:47-0400 Body surface area Derived from formula 2 m2 Hayden L Oberer Work Phone: [facility] Work Phone: 07-19-2022 12:47-0400 Body temperature 97.34 [degF] Hayden L Oberer Work Phone: [facility] Work Phone: 07-19-2022 12:47-0400 Body weight 81.65 kg Hayden L Oberer Work Phone: [facility] Work Phone: 07-19-2022 12:47-0400 Diastolic blood pressure 68 mm[Hg] Hayden L Oberer Work Phone: [facility] Work Phone: 07-19-2022 12:47-0400 Heart rate 50 /min Hayden L Oberer Work Phone: [facility] Work Phone: 07-19-2022 12:47-0400 Respiratory rate 16 /min Hayden L Oberer Work Phone: [facility] Work Phone: 07-19-2022 12:47-0400 SaO2% (BldA) [Mass fraction] 96 % Hayden L Oberer Work Phone: [facility] Work Phone: 07-19-2022 12:47-0400 Systolic blood pressure 114 mm[Hg] Hayden L Oberer Work Phone: [facility] Work Phone: 07-05-2022 12:01-0400 Body height 177.8 cm Hayden L Oberer Work Phone: [facility] Work Phone: 07-05-2022 12:01-0400 Body mass index (BMI) [Ratio] 26.11 kg/m2 Hayden L Oberer Work Phone: [facility] Work Phone: 07-05-2022 12:01-0400 Body surface area Derived from formula 2.01 m2 Hayden L Oberer Work Phone: [facility] Work Phone: 07-05-2022 12:01-0400 Body temperature 97.8 [degF] Hayden L Oberer Work Phone: [facility] Work Phone: 07-05-2022 12:01-0400 Body weight 82.56 kg Hayden L Oberer Work Phone: [facility] Work Phone: 07-05-2022 12:01-0400 Diastolic blood pressure 84 mm[Hg] Hayden L Oberer Work Phone: [facility] Work Phone: 07-05-2022 12:01-0400 Heart rate 48 /min Hayden L Oberer Work Phone: [facility] Work Phone: 07-05-2022 12:01-0400 Respiratory rate 16 /min Hayden L Oberer Work Phone: [facility] Work Phone: 07-05-2022 12:01-0400 SaO2% (BldA) [Mass fraction] 95 % Hayden L Oberer Work Phone: [facility] Work Phone: 07-05-2022 12:01-0400 Systolic blood pressure 192 mm[Hg] Hayden L Oberer Work Phone: [facility] Work Phone: 03-15-2022 11:15-0400 Body height 180.34 cm Jacob Marrero Other [facility] [employer] [employer] Other 03-15-2022 11:15-0400 Body mass index (BMI) [Ratio] 26.36 kg/m2 Jacob Marrero Other [facility] Other 03-15-2022 11:15-0400 Body temperature 98 [degF] Jacob Marrero Other [facility] Other 03-15-2022 11:15-0400 Body weight 85.73 kg Jacob Mccauleyno Other [facility] Other 03-15-2022 11:15-0400 Diastolic blood pressure 67 mm[Hg] Kever Janes Other [facility] Other 03-15-2022 11:15-0400 Respiratory rate 20 /min Jacob Isabeldano Other [facility] Other 03-15-2022 11:15-0400 SaO2% (BldA) [Mass fraction] 100 % Jacob Isabeldano Other [facility] Other 03-15-2022 11:15-0400 Systolic blood pressure 157 mm[Hg] Jacob Isabeldano Other [facility] Other 03-14-2022 14:45-0400 Body height 180.34 cm Hayden Oberer Other [facility] Other 03-14-2022 14:45-0400 Body mass index (BMI) [Ratio] 26.71 kg/m2 Hayden Oberer Other [facility] Other 03-14-2022 14:45-0400 Body temperature 98 [degF] Hayden Oberer Other [facility] Other 03-14-2022 14:45-0400 Body weight 86.86 kg Hayden Oberer Other [facility] Other 03-14-2022 14:45-0400 Diastolic blood pressure 64 mm[Hg] Hayden Oberer Other [place] [facility] [employer] Other 03-14-2022 14:45-0400 Respiratory rate 16 /min Hayden Oberer Other [place] [employer] Other 03-14-2022 14:45-0400 SaO2% (BldA) [Mass fraction] 98 % Hayden Oberer Other [facility] [employer] Other 03-14-2022 14:45-0400 Systolic blood pressure 152 mm[Hg] Hayden Oberer Other [facility] Other 01-19-2022 11:22-0500 Body height 177.8 cm Hayden L Oberer [facility] [employer] [facility] DO Work Phone: 01-19-2022 11:22-0500 Body mass index (BMI) [Ratio] 26.83 kg/m2 Hayden L Oberer Work Phone: [facility] [employer] 250 DO Work Phone: 01-19-2022 11:22-0500 Body surface area Derived from formula 2.03 m2 Hayden L Oberer Work Phone: [facility] [employer] [facility] DO Work Phone: 01-19-2022 11:22-0500 Body weight 84.82 kg Hayden L Oberer Work Phone: [facility] DO Work Phone: 01-19-2022 11:22-0500 Diastolic blood pressure 60 mm[Hg] Hayden L Oberer Work Phone: [facility] DO Work Phone: 01-19-2022 11:22-0500 Heart rate 56 /min Hayden L Oberer Work Phone: [facility] 250 DO Work Phone: 01-19-2022 11:22-0500 Systolic blood pressure 120 mm[Hg] Hayden L Oberer Work Phone: [facility] DO Work Phone: 12-22-2021 11:36-0500 Diastolic blood pressure 64 mm[Hg] Hayden L Oberer Work Phone: [facility] DO Work Phone: 12-22-2021 11:36-0500 Diastolic blood pressure 50 mm[Hg] Hayden L Oberer Work Phone: [facility] DO Work Phone: 12-22-2021 11:36-0500 Systolic blood pressure 118 mm[Hg] Hayden L Oberer Work Phone: [facility] 250 DO Work Phone: 12-22-2021 11:36-0500 Systolic blood pressure 90 mm[Hg] Ahyden L Oberer Work Phone: [facility] 250 DO Work Phone: 12-22-2021 11:29-0500 Body height 177.8 cm Hayden L Oberer Work Phone: [facility] 250 DO Work Phone: 12-22-2021 11:29-0500 Body mass index (BMI) [Ratio] 26.83 kg/m2 Hayden L Oberer Work Phone: [facility] DO Work Phone: 12-22-2021 11:29-0500 Body surface area Derived from formula 2.03 m2 Hayden L Oberer Work Phone: [facility] DO Work Phone: 12-22-2021 11:29-0500 Body weight 84.82 kg Hayden L Oberer Work Phone: [facility] DO Work Phone: 12-22-2021 11:29-0500 Diastolic blood pressure 64 mm[Hg] Hayden L Oberer Work Phone: [facility] DO Work Phone: 12-22-2021 11:29-0500 Heart rate 48 /min Hayden L Oberer Work Phone: [facility] 250 DO Work Phone: 12-22-2021 11:29-0500 Systolic blood pressure 118 mm[Hg] Hayden L Oberer Work Phone: [facility] DO Work Phone: 12-20-2021 09:25-0500 57.8 1 Hayden L Oberer Work Phone: [facility] DO Work Phone: Comment on above: FSL 12-08-2021 10:49-0500 Diastolic blood pressure 64 mm[Hg] Hayden L Oberer Work Phone: [facility] DO Work Phone: 12-08-2021 10:49-0500 Systolic blood pressure 156 mm[Hg] Hayden L Oberer Work Phone: [facility] [facility] DO Work Phone: 12-08-2021 10:14-0500 Diastolic blood pressure 78 mm[Hg] Hayden L Oberer Work Phone: [facility] [facility] DO Work Phone: 12-08-2021 10:14-0500 Systolic blood pressure 154 mm[Hg] Hayden L Oberer Work Phone: [facility] DO Work Phone: 12-08-2021 10:09-0500 Body height 177.8 cm Hayden L Oberer Work Phone: [facility] [facility] DO Work Phone: 12-08-2021 10:09-0500 Body mass index (BMI) [Ratio] 26.98 kg/m2 Hayden L Oberer Work Phone: [facility] [facility] DO Work Phone: 12-08-2021 10:09-0500 Body surface area Derived from formula 2.03 m2 Hayden L Oberer Work Phone: [facility] 250 DO Work Phone: 12-08-2021 10:09-0500 Body weight 85.28 kg Hayden L Oberer Work Phone: [facility] DO Work Phone: 12-08-2021 10:09-0500 Diastolic blood pressure 77 mm[Hg] Hayden L Oberer Work Phone: [facility] DO Work Phone: 12-08-2021 10:09-0500 Heart rate 44 /min Hayden L Oberer Work Phone: [facility] DO Work Phone: 12-08-2021 10:09-0500 Systolic blood pressure 169 mm[Hg] Hayden L Oberer Work Phone: [facility] [facility] DO Work Phone: 10-26-2021 12:00-0500 Body height 180.34 cm Crescencio Mendez Other [facility] Other 10-26-2021 12:00-0500 Body mass index (BMI) [Ratio] 25.94 kg/m2 Crescencio Mendez Other [facility] Other 10-26-2021 12:00-0500 Body weight 84.37 kg Crescencio Mendez Other [facility] Other 10-26-2021 12:00-0500 Diastolic blood pressure 81 mm[Hg] Crescencio Mendez Other [facility] Other 10-26-2021 12:00-0500 Systolic blood pressure 165 mm[Hg] Crescencio Mendez Other [facility] Other 09-13-2021 16:00-0400 Body height 180.34 cm Hayden Oberer Other [facility] Other 09-13-2021 16:00-0400 Body mass index (BMI) [Ratio] 26.02 kg/m2 Hayden Oberer Other [facility] Other 09-13-2021 16:00-0400 Body temperature 97.6 [degF] Hayden Oberer Other [facility] Other 09-13-2021 16:00-0400 Body weight 84.64 kg Hayden Oberer Other [facility] Other 09-13-2021 16:00-0400 Diastolic blood pressure 64 mm[Hg] Hayden Oberer Other [facility] Other 09-13-2021 16:00-0400 Respiratory rate 18 /min Hayden Oberer Other [facility] Other 09-13-2021 16:00-0400 SaO2% (BldA) [Mass fraction] 97 % Hayden Oberer Other [facility] Other 09-13-2021 16:00-0400 Systolic blood pressure 143 mm[Hg] Hayden Oberer Other [facility] Other 1945 00:00-0400 >na< Julita Owen Dept. of Dermatology Encounters Encounter Date Encounter Type Care Provider Facility Start: 08-26-2024 Non-patient / Non-visit DO Juan Francisco l Oberer Work Phone: [facility] Work Phone: Start: 08-26-2024 End: 08-26-2024 Admission to same day surgery center DO Hayden Oberer Work Phone: [facility] Work Phone: Start: 08-26-2024 End: 08-26-2024 ambulatory DO Hayden Oberer Work Phone: 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 Work Phone: Start: 03-15-2024 End: 03-15-2024 Patient encounter procedure Ольга Papo Work Phone: [facility] [place] Work Phone: Start: 02-29-2024 Non-patient / Non-visit Lauro Barros Work Phone: [facility] Work Phone: Start: 02-13-2024 End: 02-13-2024 ambulatory Ольга Barros Work Phone: [facility] Work Phone: Start: 02-13-2024 End: 02-13-2024 Patient encounter procedure Ольга Papo Work Phone: [facility] [place] Work Phone: Start: 01-19-2024 End: 01-19-2024 ambulatory [facility] Start: 01-17-2024 Non-patient / Non-visit Lauro De La Oght Work Phone: [facility] Work Phone: Start: 01-09-2024 End: 01-09-2024 Subsequent hospital visit by physician Siobhan Urban [place] 1 [facility] Comment on above: Ischemic cardiomyopa thy; CHF (NYHA class II, ACC/AHA stage C) (CMS/HCC) Start: 01-09-2024 End: 01-09-2024 ambulatory [facility] Start: 12-20-2023 End: 12-20-2023 ambulatory [facility] Start: 12-20-2023 End: 12-20-2023 Office outpatient visit 40 minutes [facility] DO Work Phone: [facility] Comment on above: 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, unspecified vessel or lesion type; Status post angioplasty; Ischemic cardiomyopathy; CHF (NYHA class II, ACC/AHA stage C) (CMS/HCC); History of coronary artery bypass graft; Essential hypertension; Hyperlipidemia, unspecified hyperlipidemia type; Bradycardia; Former smoker Start: 10-20-2023 End: 10-20-2023 ambulatory Hayden Oberer Other [facility] Other Start: 10-20-2023 Telephone encounter Hayden Oberer [facility] Start: 10-17-2023 End: 10-17-2023 ambulatory Hayden Oberer Other [facility] Other Start: 10-17-2023 Telephone encounter Hayden Oberer [facility] Start: 10-02-2023 End: 10-02-2023 ambulatory Hayden Oberer Other [facility] Other Start: 10-02-2023 Telephone encounter Hayden Oberer [facility] Start: 09-13-2023 End: 09-13-2023 ambulatory Hayden Oberer Other [facility] Other Start: 09-13-2023 Telephone encounter Hayden Adams [facility] Start: 05-01-2023 End: 05-01-2023 ambulatory Hayden Adams Other [facility] Other Start: 05-01-2023 Telephone encounter Hayden Adams [facility] Start: 03-14-2023 End: 03-14-2023 ambulatory Jacob Marrero Other [facility] Other Start: 03-14-2023 Encounter for genera l adult medical examination without abnormal findings Hayden Adams [facility] Start: 03-14-2023 Office outpatient vi sit 15 minutes Jacob Marrero [facility] Pulmonary Disease Start: 03-14-2023 Patient encounter procedure Hayden Adams [facility] Start: 03-10-2023 End: 03-11-[address] HAYDEN ADAMS Facility: Start: 01-18-2023 End: 01-18-2023 ambulatory Crescencio Mendez Other [facility] Other Start: 01-18-2023 Patient encounter procedure Crescencio Mendez [facility] Gastroenterology Start: 12-14-2022 ambulatory Hayden Adams Facilit y: Start: 12-14-2022 Office outpatient vi sit 25 minutes Hayden Adams Work Phone: [facility] [facility] DO Work Phone: Start: 09-30-2022 End: 09-30-2022 ambulatory Crescencio Mendez Other [facility] Other Start: 09-30-2022 Telephone encounter Crescencio Mendez [facility] Start: 09-29-2022 End: 09-29-2022 ambulatory Crescencio Mendez Other [facility] Other Start: 09-29-2022 Telephone encounter Crescencio Ruano [facility] Start: 09-19-2022 End: 09-19-2022 ambulatory Hayden Oberer Other [facility] Other Start: 09-19-2022 Telephone encounter Hayden Obeddier [facility] Start: 09-13-2022 End: 09-13-2022 ambulatory Hayden Oberer Other [facility] Other Start: 09-13-2022 Office outpatient vi sit 25 minutes Hayden Obtimothy [facility] Start: 09-06-2022 Postop follow up vis it related to original px Hayden L Oberer Work Phone: [facility] 100 Work Phone: Start: 09-06-2022 ambulatory Hayden Adams Facilit y: Start: 09-02-2022 End: 09-03-[address] HAYDEN ADAMS Facility:[id number] Start: 08-16-[address] ОЛЬГА SCHMIDT Jr Facility:[id number] Start: 08-16-2022 Patient encounter procedure Hayden L Oberer Work Phone: [id number] [place] Work Phone: Start: 08-16-[address] ОЛЬГА SCHMIDT Jr Facility: Start: 07-19-2022 Postop follow up vis it related to original px Hayden L Oberer Work Phone: [facility] Work Phone: Start: 07-19-[address] ОЛЬГА SCHMIDT Jr Facility: Start: 07-13-2022 Rx Renewal Hayden L Oberer Work Phone: [facility] 250 DO Work Phone: Start: 07-12-2022 Chart Update Hayden Adams Work Phone: [facility] Work Phone: Start: 07-07-2022 End: 07-07-[address] Hayden Adams Facility:[id number] Start: 07-05-2022 ambulatory Mazin Sanford Facility:[id number] Start: 07-05-2022 Encounter for preprocedural cardiovascular examination [facility] Start: 07-05-2022 Encounter for preprocedural laboratory examination [facility] Start: 06-27-2022 Julita Owen Dept. of D ermatology Start: 06-27-2022 AUDIT Hayden Adams Work Phone: [facility] Work Phone: Start: 06-23-2022 Chart Update Hayden Adams Work Phone: [facility] Work Phone: Start: 06-16-[address] Desire Murcia Facili ty:[id number] Start: 06-07-2022 Rx Renewal Hayden Adams Work Phone: [facility] 250 DO Work Phone: Start: 03-15-2022 End: 03-15-2022 ambulatory Jacob Marrero Other [facility] Other Start: 03-15-2022 Office outpatient vi sit 15 minutes Jacob Marrero [facility] Start: 03-14-2022 End: 03-14-2022 ambulatory Hayden Adams Other [facility] Other Start: 03-14-2022 Office outpatient vi sit 40 minutes Hayden Adams [facility] [place] Start: 01-21-2022 ambulatory Hayden Adams Facilit y: Start: 01-19-2022 Office outpatient vi sit 10 minutes Hayden L Oberer Work Phone: [facility] 250 DO Work Phone: Start: 01-19-2022 ambulatory Hayden Joey Oberer Facilit y: Start: 01-04-2022 Patient encounter procedure Hayden L Oberer Work Phone: [facility] 250 DO Work Phone: Start: 01-04-2022 ambulatory Hayden Joey Oberer Facilit y: Start: 12-22-2021 Office outpatient vi sit 15 minutes Hayden L Oberer Work Phone: [facility] 250 DO Work Phone: Start: 12-22-2021 Patient encounter procedure Hayden L Oberer Work Phone: [facility] 250 DO Work Phone: Start: 12-22-2021 ambulatory Hayden Joey Oberer Facilit y: Start: 11-19-2021 End: 11-19-2021 ambulatory Hayden Oberer Other [facility] Other Start: 11-19-2021 Telephone encounter Hayden Oberer [facility] Start: 10-26-2021 End: 10-26-2021 ambulatory Crescencio Nyy Other [facility] Other Start: 10-26-2021 Patient encounter procedure Crescencio Ananty [facility] Start: 10-25-2021 End: 10-25-2021 ambulatory Hayden Oberer Other [facility] Other Start: 10-25-2021 Telephone encounter Hayden Oberer [facility] Start: 09-20-2021 End: 09-20-2021 ambulatory Crescencio Diaudiy Other [facility] Other Start: 09-20-2021 Telephone encounter Crescencio Ruano Gastro[facility] Start: 09-13-2021 End: 09-13-2021 ambulatory Hayden Oberer Other [facility] Other Start: 09-13-2021 Office outpatient vi sit 25 minutes Hayden Oberer [facility] Start: 06-01-2004 Evaluation and management of inpatient Ольга Barros Work Phone: [facility] Work Phone: Procedures Date Procedure Procedure Detail Performing Clinician Start: 08-26-2024 Flexible fiberoptic sigmoidoscopy DO Hayden Oberer Work Phone: Start: 01-19-2024 HOLTER OR EVENT CARD IAC MONITOR BUD CARLIN Start: 01-09-2024 NM HEART BLOOD POOL EJECTION FRACTION WALL MOTION (MUGA) BUD CARLIN Start: 01-09-2024 Card blood pool gate d planar 1 study rest/stress Bud Carlin DO Work Phone: Start: 12-20-2023 Natriuretic peptide B [Mass/volume] in Blood BUD CARLIN Start: 12-20-2023 Basic metabolic 2000 panel - Serum or Plasma BUD CARLIN Start: 10-11-2023 History of coronary artery bypass grafting History of coronary artery bypass graft Bud Carlin DO Work Phone: Start: 06-27-2022 Julita Fuentes n Appendectomy Hayedn L Oberer Work Phone: Coronary artery bypa ss graft Hayden L Oberer Work Phone: Excision of melanoma Hayden L Oberer Work Phone: History of coronary artery bypass grafting History of coronary artery bypass graft Hayden L Oberer Work Phone: History of coronary artery bypass grafting History of coronary artery bypass graft Bud Carlin DO Work Phone: History of coronary artery bypass grafting History of coronary artery bypass graft Siobhan 2 Total colonoscopy Hayden L Obe rer Work Phone: Plan of Treatment Date Care Activity Detail Author Start: 04-08-2025 End: 04-08-2025 Patient encounter procedure 04/08/2025 1:40 PM EDT Office Visit [address] [place] [id number] Bud Carlin, DO [address] [facility] [address] [place] [address] [facility] Start: 08-26-2024 [facility] Start: 07-16-2024 End: 07-16-2024 Patient encounter procedure 07/16/2024 11:00 AM EDT Office Visit [address] [place] [phone] Bud Carlin, DO [address] [facility] [address] [place] [address] [facility] Start: 07-14-2024 COVID-19 Vaccine ( season) COVID-19 Vaccine ( season) [facility] Start: 07-14-2024 Influenza vaccination [facility] Start: 04-18-2024 End: 04-18-2024 Professional / ancillary services management 04/18/2024 10:00 AM EDT Ancillary Procedure [address] [place] [phone] [facility] Start: 04-16-2024 End: 04-02-2025 Holter monitor study Holter Or Event Lo[facility] Cardiac Services Routine Dizziness Bradycardia Expected: 04/16/2024 (Approximate), Expires: 04/02/2025 [facility] Service Area Work Phone: Comment on above: Expected: 04/16/2024 (Approximate), Expires: 04/02/2025 Start: 04-02-2024 End: 04-02-2024 Patient encounter procedure 04/02/2024 1:40 PM EDT Office Visit [address] [place] [address] Bud Carlin, [address] [place] [address] [facility] Start: 01-19-2024 End: 01-19-2024 Professional / ancillary services management 01/19/2024 1:00 PM EST Ancillary Procedure [facility] [address] [place] [address] [facility] Start: 01-09-2024 End: 01-09-2024 Patient encounter procedure Jennifer [facility] Start: 12-20-2023 End: 12-20-2024 Basic metabolic 2000 panel - Serum or Plasma Basic Metabolic Panel Lab Routine Ischemic cardiomyopathy CHF (NYHA class II, ACC/AHA stage C) (CMS/HCC) Essential hypertension Expected: 12/20/2023 (Approximate), Expires: 12/20/2024 [facility] Work Phone: Comment on above: Expected: 12/20/2023 (Approximate), Expires: 12/20/2024 Start: 12-20-2023 End: 12-20-2024 Holter monitor study Holter Or Event [facility] Cardiac Services Routine Bradycardia Expected: 12/20/2023, Expires: 12/20/2024 [facility] Service Area Work Phone: Comment on above: Expected: 12/20/2023 , Expires: 12/20/2024 Start: 12-20-2023 End: 12-20-2024 Natriuretic peptide B [Mass/volume] in Blood B-Type Natriuretic Peptide Lab Routine Ischemic cardiomyopathy CHF (NYHA class II, ACC/AHA stage C) (CMS/HCC) Essential hypertension Expected: 12/20/2023 (Approximate), Expires: 12/20/2024 [facility] Work Phone: Comment on above: Expected: 12/20/2023 (Approximate), Expires: 12/20/2024 Start: 12-20-2023 End: 12-20-2024 NM Heart Wall motion and Ejection fraction NM heart blood pool ejection fraction wall motion (MUGA) Imaging Routine Ischemic cardiomyopathy CHF (NYHA class II, ACC/AHA stage C) ([facility]) Expected: 12/20/2023, Expires: 12/20/2024 [facility] Work Phone: Comment on above: Expected: 12/20/2023 , Expires: 12/20/2024 Start: 12-20-2023 FUV, Provider: Bud Carlin, Status: Pen, Time: 10:50 AM FUV, Provider: Bud Carlin, Status: Pen, Time: 10:50 AM [facility] 250 DO Work Phone: Start: 07-14-2023 COVID-19 Vaccine () COVID-19 Vaccine () [facility] Start: 07-14-2023 Influenza vaccination Influenza Vacc ine (#1) [facility] Start: 07-05-2023 Creatinine measurement Creatinine Le austin [facility] Start: 07-05-2023 Potassium measurement Potassium Leve l [facility] Start: 12-14-2022 FUV, Provider: Bud Carlin, Status: Pen, Time: 11:20 AM FUV, Provider: Bud Carlin, Status: Pen, Time: 11:20 AM [facility] 250 DO Work Phone: Start: 09-06-2022 FUV, Provider: Ольга Brown, Status: Pen, Time: 12:40 PM FUV, Provider: Ольга Brown, Status: Pen, Time: 12:40 PM [id number] [place] Work Phone: Start: 07-19-2022 POV, Provider: Ольга Brown, Status: Pen, Time: 12:20 PM POV, Provider: Ольга Brown, Status: Jaime, Time: 12:20 PM [facility] 250 DO Work Phone: Start: 07-19-2022 POV, Provider: Ольга Bronw, Status: Jaime, Time: 11:20 AM POV, Provider: Ольга Brown, Status: Pen, Time: 11:20 AM [facility] Work Phone: Start: 07-07-2022 [facility], Provider: Ольга Brown, Status: Pen, Time: 4:00 PM [facility], Provider: Ольга Brown, Status: Pen, Time: 4:00 PM [facility] Work Phone: Start: 07-05-2022 NPV, Provider: Ольга Brown, Status: Pen, Time: 12:00 PM NPV, Provider: Ольга Brown, Status: Pen, Time: 12:00 PM [facility] Work Phone: Start: 06-08-2022 FUV, Provider: Yaritza Beard, Status: Pen, Time: 1:00 PM FUV, Provider: Yaritza Beard, Status: Pen, Time: 1:00 PM [facility] 250 DO Work Phone: Start: 01-19-2022 FUV, Provider: Yaritza Beard, Status: Pen, Time: 11:00 AM FUV, Provider: Yaritza Beard, Status: Pen, Time: 11:00 AM [facility] 250 DO Work Phone: Start: 12-31-2021 [facility], Provider : DANIEL WOLF BOTTLE BOOTH ATTENDANT 1,[id number], Status: Pen, Time: 11:00 AM [facility], Provider: DANIEL WOLF BOTTLE BOOTH ATTENDANT 1,[id number], Status: Pen, Time: 11:00 AM [facility] 250 DO Work Phone: Start: 2004 RSV patient s and/or patients aged 60+ years (1 - 1-dose 60+ series) RSV patients and/or patients aged 60+ years (1 - 1-dose 60+ series) [facility] Start: 1994 Zoster Vaccines (1 of 2) Zoste r Vaccines (1 of 2) [facility] Start: 1966 DTaP/Tdap/Td Vaccine s (1 - Tdap) DTaP/Tdap/Td Vaccines (1 - Tdap) [facility] Start: 1962 Diabetes mellitus screening Diabetes Screening [facility] Start: 1962 Hepatitis C screening Hepatitis C Sc reening [facility] Start: 1944 Examination of skin Derm Melan janett Skin Check [facility] Start: 1944 Echocardiography Echocardiogram [facility] Start: 1944 Lipid panel Lipid Panel [facility] Start: 1944 Medicare Annual Well ness Visit Medicare Annual Wellness Visit (AWV) [facility] Patient Education [facility] Work Phone: End: 08-20-2024 US.doppler Carotid arteries - bilateral [facility] Service Area Work Phone: Comment on above: Once for 1 Occurrenc es starting 08/20/2024 until 08/20/2024 [facility] Immunizations Immunization Date Immunization Notes Care Provider Fa cility 02-10-2021 COVID-19 Vaccine Pfizer - Documentation Purposes Only Hayden Oberer Other [facility] 01-20-2021 COVID-19 Vaccine Pfizer - Documentation Purposes Only Hayden Oberer Other [facility] 09-13-2019 influenza, injectable, quadrivalent, preservative free Hayden Oberer Other [facility] 09-13-2019 influenza virus vaccine, unspecified formulation Bud Carlin DO Work Phone: [facility] Work Phone: 08-13-2019 influenza virus vaccine, unspecified formulation Hayden L Oberer Work Phone: [facility] 250 DO Work Phone: 09-20-2018 influenza, seasonal, injectable Hayden Oberer Other [facility] 08-13-2018 influenza virus vaccine, unspecified formulation Hayden L Oberer Work Phone: [facility] [employer] DO Work Phone: 03-12-2018 pneumococcal conjugate vaccine, 13 valent Hayden Oberer Other [facility] Other 08-09-2016 influenza, injectable, quadrivalent, preservative free Hayden Oberer Other [facility] 01-15-2016 pneumococcal polysaccharide vaccine, 23 valent Hayden Oberer Other [facility] [employer] Other 08-10-2015 influenza, seasonal, injectable Hayden Oberer Other [facility] 11-13-2014 pneumococcal polysaccharide vaccine, 23 valent [facility] L [facility] Work Phone: 08-18-2014 influenza, seasonal, injectable Hayden Oberer Other [facility] 08-27-2012 influenza, seasonal, injectable Hayden Oberer Other [facility] 09-01-2010 influenza, seasonal, injectable Hayden Oberer Other [facility] 09-22-2005 influenza, seasonal, injectable Hayden L [facility]berer [facility] DO Work Phone: 1944 pneumococcal conjugate vaccine, 7 valent Julita Owen Dept. of Dermatology NEGATED: Highlighted row has not occurred! 1 influenza, seasonal, injectable Patient Objection Hayden Oberer Other [facility] NEGATED: Highlighted row has not occurred! 0 influenza, seasonal, injectable Patient Objection Hayden Oberer Other [facility] [facility] Payers Date Payer Category Payer Self-pay [id number] 2023 Medicare [employer] MEDICARE UNITED [employer] MEDICARE [id number] 2023-Present [address] [place] [address] [id number] 2023 Medicare [id number] 2.16.840.1.066485.19 2022 Medicare [id number] 2.16.840.1.229520.19 1959 Medicare [id number] 1959 Private Health Insurance [id number] 1944 Unknown [id number] 2.16.840.1.304309.3.579.2. 356 1944 Unknown [id number] 2.16.840.1.681353.3.579.2. 356 1944 Unknown [id number] 2.16.840.1.724554.3.579.2. 356 1944 Unknown [id number] 2.16.840.1.870512.3.579.2. 356 1944 Unknown [id number] 2.16.840.1.069377.3.579.2. 356 1944 Unknown [id number] 2.16.840.1.177937.3.579.2. 356 1944 Unknown [id number] 2.16.840.1.245565.3.579.2. 356 1944 Unknown [id number] 2.16.840.1.648472.3.579.2. 356 1944 Unknown [id number] 2.16.840.1.349372.3.579.2. 356 1944 Unknown [id number] 2.16.840.1.209775.3.579.2. 356 1944 Unknown [id number] 2.16.840.1.767587.3.579.2. 356 1944 Unknown [id number] 2.16.840.1.055615.3.579.2. 356 1944 Unknown [id number] 2.16.840.1.184718.3.579.2. 1069 1944 Unknown [id number] 2.16840.1.804275.3.579.2. 1069 1944 Unknown [id number] 2..840.1.322087.3.579.2. 1069 1944 Unknown [id number] 2.840.1.063857.3.579.2. 593 1944 Unknown [id number] 2.840.1.148644.3.579.2. 593 1944 Unknown [id number] 2.840.1.627151.3.579.2. 1244 1944 Unknown [id number] 2.840.1.845522.3.579.2. 1243 1944 Unknown [id number] 2.840.1.685332.3.579.2. 4 1944 Unknown [id number] 2.840.1.696118.3.579.2. 124 1944 Unknown [id number] 2.840.1.057947.3.579.2. 1244 1944 Unknown [id number] 2.840.1.913770.3.579.2. 6 1944 Unknown [id number] 2.16840.1.156814.3.579.2. 6 1944 Unknown [id number] 2.840.1.308655.3.579.2. 1246 Medicare [id number] 2.840.1.238699.19 Medicare [id number] 2.16.840.1.338719.19 Medicare Medicare Outpatient [id number] 0A [id number] Private Health Insurance [id number] Unknown [employer] Unknown MMO [id number] Unknown [id number] 2.16.840.1.539498.3.579.2. 531 Social History Date Type Detail Facility Start: 10-11-2023 End: 07-16-2024 Caffeine use Caffeine use -[facility] DO Work Phone: Comment on above: COFFEE 2 CUPS DAILY; QUIT IN THE 'S; Start: 10-11-2023 End: 07-16-2024 Sex Assigned At [facility] [employer] Other Start: 06-27-2022 Dept. of D ermatology Start: 1945 Sex Assigned At Male F [facility] Start: 10-11-2023 End: 08-26-2024 Tobacco smoking status NHIS Ex-smoker [facility] Work Phone: History of tobacco use Current smoker [facility] Work Phone: History of tobacco use Cigarette Smoker [facility] Work Phone: Start: 10-11-2023 Tobacco use and exposure Smokeless tobacco non-user [facility] Work Phone: Start: 12-20-2023 End: 07-16-2024 Alcohol intake Lifetime non-drinker (finding) [facility] Work Phone: Start: 1945 Sex Assigned At Not on file [facility] Work Phone: Start: 12-10-2023 End: 08-20-2024 Exposure to SARS-CoV-2 (event) Not sure [facility] Goals Date Patient Goal Desired Activity /State Clinical Notes 09-13-2021 to 08-26-2024 Bud Carlin, DO - 04/02/2024 1:40 PM EDTPatient InstructionsLuis Eduardofred Carlin, DO - 12/20/2023 2:30 PM ESTPatient Instructions Note Date & Type Note Facility 08-26-2024 Procedure note [facility] 04-02-2024 History of Present illness Narrative Subjective Junior Torres is a 78 y.o. male Chief Complaint Follow-up 78-year-old gentleman returns for follow-up and is doing well other than complaints of blurred vision and dizziness, Holter monitoring ordered this past December describes significant bradycardia with heart rates in the 30s possibly consistent with sick sinus syndrome. Patient's ventricular function is improved to 67% by recent MUGA scanning this reportedly was supposed to been transmitted to the patient however apparently that did not occur He has persistent dizziness and lightheadedness currently on appropriate tolerable GDMT for severe ischemic cardiomyopathy with improved left ventricular function last measured several years ago with ejection fraction improved to 50%, now normalized to 67% He has severe three-vessel ASHD ;, continue to follow and for ischemic cardiomyopathy, remote three-vessel CABG with known occluded grafts x3 and subsequent PCI of the LAD x2 drug-eluting stents. Last heart catheterization 2018 revealed the above anatomy with known occlusions of the [place] RCA and circumflex, patent LAD and stents and patent ramus branch at that time with moderate left ventricular dysfunction, improved on Entresto therapy and guideline directed medical therapies with subsequent MUGA scan revealing ejection fraction of 51% 1 year later and May 2020. Because of persistent bradycardia, dizziness and blurred vision will discontinue carvedilol altogether, obtain another 24-hour Holter monitor in 2 weeks, follow-up in 12 weeks for review, and potentially consider pacemaker if necessary this was all discussed with patient and extensively. He has no evidence of heart failure or angina currently, details of his other comorbidities including exertional dyspnea, COPD, are noted Most recent labs including LDL 55 and creatinine 1.62 are noted. Review of Systems Respiratory: Positive for shortness of breath. Neurological: Positive for dizziness. All other systems reviewed and are negative. Vitals: 04/02/24 1340 BP: 100/50 BP Location: Right arm Patient Position: Sitting Pulse: 72 Weight: 80.3 kg (177 lb) Height: 1.778 m (5' 10 ) Objective Physical Exam Constitutional: Appearance: Normal appearance. HENT: Nose: Nose normal. Neck: Vascular: No carotid bruit. Cardiovascular: Rate and Rhythm: Bradycardia present. Pulses: Normal pulses. Heart sounds: Normal heart sounds. Pulmonary: Effort: Pulmonary effort is normal. Abdominal: General: Bowel sounds are normal. Palpations: Abdomen is soft. Musculoskeletal: General: Normal range of motion. Cervical back: Normal range of motion. Right lower leg: No edema. Left lower leg: No edema. Skin: General: Skin is warm and dry. Neurological: General: No focal deficit present. Mental Status: He is alert. Psychiatric: Mood and Affect: Mood normal. Behavior: Behavior normal. Thought Content: Thought content normal. Judgment: Judgment normal. Allergies Patient has no known allergies. Current Medications Current Outpatient Medications: allopurinol (Zyloprim) 300 mg tablet, Take 1 tablet (300 mg) by mouth once daily., Disp: , Rfl: aspirin 81 mg EC tablet, Take 1 tablet (81 mg) by mouth once daily., Disp: , Rfl: colchicine 0.6 mg tablet, Take 1 tablet (0.6 mg) by mouth once daily. As needed for gout flare, Disp: , Rfl: ferrous sulfate, 325 mg ferrous sulfate, tablet, Take 1 tablet by mouth once daily with breakfast., Disp: , Rfl: fluticasone (Flonase) 50 mcg/actuation nasal spray, Administer 2 sprays into each nostril once daily., Disp: , Rfl: gabapentin (Neurontin) 100 mg capsule, Take 1 capsule (100 mg) by mouth early in the morning.., Disp: , Rfl: isosorbide mononitrate ER (Imdur) [...] by mouth once daily., Disp: , Rfl: sacubitriL-valsartan (Entresto) 24-26 mg tablet, Take 1 tablet by mouth 2 times a day., Disp: 180 tablet, Rfl: 3 Assessment/Plan 1. Atherosclerosis of coronary artery of [place] heart without angina pectoris, unspecified vessel or lesion type Follow Up In Cardiology Follow Up In Cardiology 2. Ischemic cardiomyopathy Follow Up In Cardiology 3. CHF (NYHA class II, ACC/AHA stage C) (Multi) Follow Up In Cardiology 4. Former smoker 5. Overweight (BMI 25.0-29.9) 6. 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 Bradycardia Holter Or Event Loose Hand Packer 8. Blurred vision 9. Chronic obstructive pulmonary disease, unspecified COPD type (Multi) Scribe Attestation By signing my name below, ILeigh LPN, Scribe attest that this documentation has been prepared under the direction and in the presence of Bud Carlin DO. Provider Attestation - Scribe documentation All medical record entries made by the Scribe were at my direction and personally dictated by me. I have reviewed the chart and agree that the record accurately reflects my personal performance of the history, physical exam, discussion and plan. documented in this encounter [facility] Work Phone: 04-02-2024 Instructions Leigh Carrion LPN - 04/02/2024 1:40 PM EDT Please bring all medicines, vitamins, and herbal supplements with you when you come to the office. Prescriptions will not be filled unless you are compliant with your follow up appointments or have a follow up appointment scheduled as per instruction of your physician. Refills should be requested at the time of your visit. BMI was above normal measurement. Current weight: 80.3 kg (177 lb) Weight change since last visit (-) denotes wt loss -1 lbs Weight loss needed to achieve BMI 25: 3.1 Lbs Weight loss needed to achieve BMI 30: -31.6 Lbs Provided instructions on dietary changes Provided instructions on exercise. documented in this encounter [facility] Work Phone: 12-20-2023 History of Present illness Narrative Subjective [...] above anatomy with known occlusions of the [place] RCA and circumflex, patent LAD and stents [...] cardiovascular events. He has underlying history of [place] Heart Association class II/C heart failure, COPD, [...] Assessment/Plan 1. Atherosclerosis of coronary artery of [place] heart without angina pectoris, unspecified vessel or lesion type 2. Status post angioplasty 3. Ischemic cardiomyopathy 4. CHF (NYHA class II, ACC/AHA stage C) ([facility]) 5. History of coronary artery bypass graft 6. Essential hypertension 7. Hyperlipidemia, unspecified hyperlipidemia type 8. Bradycardia 9. Former smoker Scribe Attestation By signing my name below, PauletteSoteroRyann Irene Doyle LPN , Scribe attest that this documentation has been prepared under the direction and in the presence of Bud Carlin DO. documented in this encounter [facility] Work Phone: 12-20-2023 Instructions Francesca Knox [...] of your visit. documented in this encounter [facility] Work Phone: 10-20-2023 Evaluation note Encounter Date Diagnosis Assessment Notes Oct, Iron deficiency (ICD-10 - E61.1) [facility] Other 12-05-2023 Evaluation note* Encounter Date Diagnosis Assessment Notes Treatment Notes Treatment Clinical Notes Oct, Iron deficiency (ICD-10 - E61.1) [facility] Other 11-20-2023 Evaluation note* Encounter Date Diagnosis Assessment Notes Treatment Notes Treatment Clinical Notes Sep, Iron deficiency (ICD-10 - E61.1) [facility] Other 11-01-2023 Evaluation note* Encounter Date Diagnosis Assessment Notes Treatment Notes Treatment Clinical Notes Sep, Allergic rhinitis (ICD-10 - J30.9) [facility] Other 06-19-2023 Evaluation note* Encounter Date Diagnosis Assessment Notes Treatment Notes Treatment Clinical Notes Apr, Gout (ICD-10 - M10.9) [facility] Other 05-02-2023 Evaluation note* Encounter Date Diagnosis Assessment Notes Treatment Notes Treatment Clinical Notes March, Cough (ICD-10 - R05) March, Allergic rhinitis (ICD-10 - J30.9) March, Hiatal hernia (ICD-10 - K44.9) March, GERD (gastroesophageal reflux disease) (ICD-10 - K21.9) [facility] Other 05-02-2023 Evaluation note* Encounter Date Diagnosis Assessment Notes Treatment Notes Treatment Clinical Notes March, Iron deficiency (ICD-10 - E61.1) We discussed his borderline iron deficiency, borderline anemia. I do not think he needs colonoscopy, he had one 2019 [address] followed [address] Mendez. We [...] and Shingrix. After that vaccines will be [id number] at his age no cancer screening is recommended unless Dr. Mendez wants to continue every 5 year colonoscopy because of history of polyps at his age. Currently [id number] told my medical superintendent he did not want me to bring up or discuss advanced directives I gave him a handwritten summary of the above recommendations March, Other RTO 6 months pr eceded by fasting CBC, BMP, hepatic panel, lipid profile, hemoglobin A1c, iron, TIBC, ferritin, reticulocyte count and sooner as needed. I completed a full lab panel because of medical complexity. [facility] Other 03-08-2023 Evaluation note* Encounter Date Diagnosis [...] loose/watery bowel movements any time he eats. [facility] Other 11-07-2022 Evaluation note* Encounter Date Diagnosis Assessment Notes Treatment Notes Treatment Clinical Notes Sep, Gout (ICD-10 - M10.9) Sep, Mixed hyperlipidemia (ICD-10 - E78.2) [facility] Other 11-01-2022 Evaluation note* Encounter Date Diagnosis [...] not think we should intensify BP medications. [facility] is managing his hypertension. Sep, CAD (coronary artery disease) (ICD-10 - I25.10) Clinically stable. Continue with [facility] Sep, Asthma (ICD-10 - J45.909) Stable without [...] Ischemic cardiomyopathy (ICD-10 - I25.5) Continue with JORDIN. See dictation above Sep, Microscopic colitis (ICD-10 [...] A1c, iron, B12 and sooner as needed. [facility] Other 08-25-2022 NotePROCEDURE DETAILS Preoperative Diagnosis: Melanoma left upper back Postoperative Diagnosis: Melanoma left upper back Surgeon: Ольга Brown Resident/Fellow/Other [place]: Lavelle Foley Procedure: 1. WIDE LOCAL EXCISION [...] Details of procedure: The patient arrived at [facility] on 07/07/2022 for the aforementioned procedure. Consent [...] complex multilayer fashion using deep 2-0 Vicryl [id number], interrupted 3-0 Vicryl deep dermals, and a [...] Completion Last Updated: 07-Jul-2022 18:00 by Ольга Brown)[facility] 07-07-2022 NoteHistory & Physical Reviewed: I have [...] the note. I personally evaluated the patient [id number] Electronic Signatures: Ольга Brown) (Signed 08-Jul-2022 16:56) Authored: Note Completion Co-Signer: History & Physical Reviewed, ERAS, Consent, Note Completion Lavelle Foley (Resident)) (Signed 07-Jul-2022 15:37) Authored: History & Physical Reviewed, ERAS, Consent, Note Completion Last Updated: 08-Jul-2022 16:56 by Ольга Brown)[facility] 07-07-2022 History of Present illness NarrativeMrSunni Torres [...] dermal nevi located at the mid superior margin.[facility] Work Phone: 1(277) 985-272108-25-2022 History of Present illness NarrativeMrSunni Torres is [...] and there was no melanoma in the specimen.[facility] Work Phone: 1(702) 338-877405-03-2022 Evaluation note* Encounter Date Diagnosis Assessment Notes Treatment Notes Treatment Clinical Notes March, Cough (ICD-10 - R05) March, Allergic rhinitis (ICD-10 - J30.9) March, Hiatal hernia (ICD-10 - K44.9) March, GERD (gastroesophageal reflux disease) (ICD-10 - K21.9) [facility] Other 05-02-2022 Evaluation note* Encounter Date Diagnosis [...] - I25.10) See dictation above. Continue with NO March, Asthma (ICD-10 - J45.909) His asthma/chronic [...] Ischemic cardiomyopathy (ICD-10 - I25.5) Continue with NO March, Impaired glucose tolerance (ICD-10 - R73.02) [...] B12, folate, iron and sooner as needed [facility] Other 12-14-2021 Evaluation note* Encounter Date Diagnosis Assessment Notes Treatment Notes Treatment Clinical Notes Oct, Diarrhea (ICD-10 - R19.7) Continue Imodium every morning. Follow up in 1 year Oct, Microscopic colitis (ICD-10 - K52.89) [facility] Other 11-08-2021 Evaluation note* Encounter Date Diagnosis Assessment Notes Treatment Notes Treatment Clinical Notes Sep, Asthma (ICD-10 - J45.909) [facility] Other 11-01-2021 Evaluation note* Encounter Date Diagnosis Assessment Notes Treatment Notes Treatment Clinical Notes Sep, Counseled about COVID-19 virus infection (ICD-10 - Z71.89) I did recommend he get the [employer] Covid booster. We did discuss that a [...] Diarrhea (ICD-10 - R19.7) Stable, continue with [facility] gastroenterology Sep, Microscopic colitis (ICD-10 - K52.89) [...] lab panel because of his medical complexity. [facility] Other Evaluation noteNo InformationNort [employer] Other Evaluation noteN/ADept. of Dermatology Evaluation note* Diagnosis Atherosclerosis of coronary artery of [place] heart without angina pectoris, unspecified vessel or lesion type Status post angioplasty Postsurgical percutaneous transluminal coronary angioplasty status Ischemic cardiomyopathy Other specified forms of chronic ischemic heart disease CHF (NYHA class II, ACC/AHA stage C) ([facility]) Congestive heart failure, unspecified History of coronary artery bypass graft Postsurgical aortocoronary bypass status Essential hypertension Unspecified essential hypertension Hyperlipidemia, unspecified hyperlipidemia type Bradycardia Other specified cardiac dysrhythmias Former smoker Personal history of tobacco use, presenting hazards to health documented in this encounter [facility] Work Phone: Evaluation note* Diagnosis Ischemic cardiomyopathy Other specified forms of chronic ischemic heart disease CHF (NYHA class II, ACC/AHA stage C) ([facility]) Congestive heart failure, unspecified documented in this encounter [facility] Work Phone: Evaluation noteNo assessment information available [facility] Work Phone: Evaluation note* Diagnosis Onset Date Resolution Status Asthma acute Chronic insomnia noneactive Peripheral neuropathy noneac tive Sinusitis noneactive Acute bronchitis noneactive Cold intolerance noneactive Iron deficiency noneactive [facility] Work Phone: Evaluation note* Diagnosis Atherosclerosis of coronary artery of [place] heart without angina pectoris, unspecified vessel or lesion type Ischemic cardiomyopathy Other specified forms of chronic ischemic heart disease CHF (NYHA class II, ACC/AHA stage C) (Multi) Congestive heart failure, unspecified Former smoker Personal history of tobacco use, presenting hazards to health Overweight (BMI 25.0-29.9) Overweight Dizziness Dizziness and giddiness Bradycardia Other specified cardiac dysrhythmias Blurred vision Other specified visual disturbances Chronic obstructive pulmonary disease, unspecified COPD type (Multi) documented in this encounter [facility] Work Phone: Evaluation note* Diagnosis Onset Date Resolution Status GERD (gastroesophageal reflux disease) acute Hiatal hernia acute Lymphocytic colitis acute [facility] Work Phone: Evaluation note* Diagnosis Atherosclerosis of coronary artery of [place] heart without angina pectoris, unspecified vessel or lesion type History of coronary artery bypass graft Postsurgical aortocoronary bypass status Ischemic cardiomyopathy Other specified forms of chronic ischemic heart disease Hyperlipidemia, unspecified hyperlipidemia type Dizziness Dizziness and giddiness documented in this encounter [facility] Work Phone: Evaluation note* Diagnosis Onset Date Resolution Status Change in bowel habits acute GERD (gastroesophageal reflux disease) acute Hiatal hernia acute Lymphocytic colitis acute [facility] Work Phone: History general Narrative - [...] History [facility] - [facility] (double bypass) 1994 Surgical History Right shoulder arthroscopy-Dr. Barros 05/2004 Surgical History Melanoma excision right cheek-Moises Sanford 05/2008 Surgical History Cardiac cath, angioplasty, sten t Dr. Winslow 05/2015 Surgical History Heart cath- multiple 100% blockage with 40% heart function 06/25/19 Surgical History Colonoscopy 05/07/19 Surgical History colonoscopy ronda 06/2020 Hospitalization History Cardiolyte stress test - Dr. Lyn 1999 Hospitalization History Cardiac stress test (neg ) Dr. Blair 2002 Hospitalization History Cardiac stress test (neg ) Dr. Blair 02/2003 Hospitalization History Cardiolyte stress test-O ld [facility] 02/2007 Hospitalization History Exercise myoview stress test (neg) [facility] 09/2009 Hospitalization History EGD (neg), colonoscopy-p olyp Dr. Shoemaker 10/2010 Hospitalization History Exercise stress test NO C 04/2014 [facility] Other History general Narrative - Reported* Type [...] History Coronary angioplasty - Right coronary artery Dr.Steele Tan [facility] 1994 Surgical History CABG (double bypass) 1994 Surgical History Right shoulder arthroscopy-Dr. Barros 05/2004 Surgical History Melanoma excision right cheek-D malachi Sanford 05/2008 Surgical History Cardiac cath, angioplasty, sten t Dr. Winslow 05/2015 Surgical History Heart cath- multiple 100% blockage with 40% heart function 06/25/19 Surgical History Colonoscopy 05/07/19 Surgical History colonoscopy [facility] 06/2020 Surgical History melanoma removed from shoulder 01/2022 Hospitalization History Cardiolyte stress test - Dr. Lyn 1999 Hospitalization History Cardiac stress test (neg ) Dr. Blair 2002 Hospitalization History Cardiac stress test (neg ) Dr. Blair 02/2003 Hospitalization History Cardiolyte stress test-O ld [place] 02/2007 Hospitalization History Exercise myoview stress test (neg) [facility] 09/2009 Hospitalization History EGD (neg), colonoscopy-p olyp Dr. Shoemaker 10/2010 Hospitalization History Exercise stress test [facility] C 04/2014 [facility] Other History general Narrative - Reported* Type [...] History Coronary angioplasty - Right coronary artery [facility] 1994 Surgical History CABG (double bypass) 1994 Surgical History Right shoulder arthroscopy-Dr. Barros 05/2004 Surgical History Melanoma excision right cheek-D malachi Sanford 05/2008 Surgical History Cardiac cath, angioplasty, sten t Dr. Winslow 05/2015 Surgical History Heart cath- multiple 100% blockage with 40% heart function 06/25/19 Surgical History Colonoscopy 05/07/19 Surgical History colonoscopy [facility] 06/2020 Surgical History melanoma removed from shoulder 01/2022 Surgical History melanoma removed from back 08/14 022 Hospitalization History Cardiolyte stress test - Dr. Lyn 1999 Hospitalization History Cardiac stress test (neg ) Dr. Blair 2002 Hospitalization History Cardiac stress test (neg ) Dr. Blair 02/2003 Hospitalization History Cardiolyte stress test-O ld [facility] 02/2007 Hospitalization History Exercise myoview stress test (neg) [facility] 09/2009 Hospitalization History EGD (neg), colonoscopy-p olyp Dr. Shoemaker 10/2010 Hospitalization History Exercise stress test [facility] C 04/2014 [facility] Other History of Present illness Narrative* The [...] medication regimen. He denies medication side effects. -[facility] Work Phone: History of Present illness Narrative* [...] medication regimen. He denies medication side effects. [facility] Work Phone: History of Present illness Narrative* [...] medication regimen. He denies medication side effects. -[facility] DO Work Phone: Rembmt for referral (narrative)* Name Reason for referral MAGALY MCKENZIE Dept. of Dermatology Reeacz for referral (narrative)* Consultation (Routine) - Authorized Specialty Diagnoses / Procedures Referred By Contac t Referred To Contact Cardiology Diagnoses Atherosclerosis of coronary artery of [place] heart without angina pectoris, unspecified vessel or lesion type Ischemic cardiomyopathy CHF (NYHA class II, ACC/AHA stage C) ([facility]) Procedures Follow Up In Cardiology uBd Carlin DO [address] [facility], [address] [address] Yaritza Ortiz, [employer] [facility] [address], [address] [address] Referral ID Status Reason Start Date Expiration Date V isits Requested Visits Authorized [id number] Authorized 12/20/2023 12/19/2024 1 1 * Imaging (Routine) - Pending Review Specialty Diagnoses / Procedures Referred By Contac t Referred To Contact Radiology Diagnoses Ischemic cardiomyopathy CHF (NYHA class II, ACC/AHA stage C) ([facility]) Procedures NM heart blood pool ejection fraction wall motion (MUGA) Bud Carlin DO 703 [facility] 2, [address] [address] Referral ID Status Reason Start Date Expiration Date Visits Requested Visits Authorized [id number] Pending Review Perform Procedure 12/20/2023 12/19/2024 2 2 * Cardiovascular (Routine) - Pending Review Specialty Diagnoses / Procedures Referred By Contac t Referred To Contact Cardiology Diagnoses Bradycardia Procedures Holter Or Event Loose Hand Packer Bud Carlin DO [address] [facility] 2, [address] [address] Referral ID Status Reason Start Date Expiration Date V isits Requested Visits Authorized [id number] Pending Review 12/20/2023 12/19/2024 1 1 [facility] Work Phone: Summary Purpose Family History No Family History Records FoundUnknown Family Member Name Dates Details Family history [...] Malignant neoplasm Unknown sister Malignant neoplasm Unknown Relationship Condition Age at Onset Recorded Date/T rowan father Myocardial infarction Unknown mother Diabetes mellitus Unknown Diabetic nephropathy Unknown brother Presence of cardiac pacemaker Unknown sister Malignant neoplasm of pancreas Unknown Diabetes mellitus Unknown Cerebral hemorrhage Unknown Heart problem Unknown daughter Diabetes mellitus Unknown Hypertension Unknown brother Heart disease Unknown father Heart disease Unknown Unknown Renal failure Unknown Malignant neoplasm Unknown sister Malignant neoplasm Unknown Advance Directives No Advanced Directives Records Found Advance Directive Response Recorded Date/ Time Advance [...] above anatomy with known occlusions of the [place] RCA and circumflex, patent LAD and stents [...] events. * He has underlying history of [place] Heart [employer] class II/C heart failure, COPD, essential hypertension, former smoker, hyperlipidemia, the above-mentioned melanoma with excision, PCI LAD, ischemic cardiomyopathy with improved LV function. * Recommendations: We will continue current therapies, follow-up with within the next year Reason for Referral Specialty Diagnoses / Procedures Referred By Kenia garcia Referred To Contact Cardiology Diagnoses Dizziness Bradycardia Procedures Holter Or Event Loose Hand Packer Bud Carlin DO [address] [place] [address] 2, [address] [address] Referral ID Status Reason Start Date Expiration Date V isits Requested Visits Authorized [id number] Pending Review 04/02/2024 04/02/2025 1 1 Specialty Diagnoses / Procedures Referred By Kenia garcia Referred To Contact Cardiology Diagnoses Atherosclerosis of coronary artery of [place] heart without angina pectoris, unspecified vessel or lesion type Procedures Follow Up In Cardiology Bud Carlin DO [address] [facility] 2, [address] [place] [address] Bud Carlin DO [address] [facility] 2, [address] [place] [address] Referral ID Status Reason Start Date Expiration Date V isits Requested Visits Authorized [id number] Authorized 04/02/2024 04/02/2025 1 1 Specialty Diagnoses / Procedures Referred By Contac t Referred To Contact Radiology Diagnoses Ischemic cardiomyopathy CHF (NYHA class II, ACC/AHA stage C) (CMS/HCC) Procedures NM heart blood pool ejection fraction wall motion (MUGA) Bud Carlin, [address] [facility] [address], [address] [place] [address] Referral ID Status Reason Start Date Expiration Date Visits Requested Visits Authorized [id number] Authorized Perform Procedure 12/20/2023 12/19/2024 2 2 Chief Complaint and Reason for Visit Chief Complaint ^ Amb Documentation uri Chief Complaint ^ Amb Documentation uri SAWV/LABS Reason for Visit Asthma Chronic insomnia Peripheral neuropathy Sinusitis Acute bronchitis Cold intolerance Iron deficiency Chief Complaint ^ 1 yr f/u-microscopic colitis Reason for Visit GERD (gastroesophage al reflux disease) Hiatal hernia Lymphocytic colitis Chief Complaint ^ 1 yr f/u-microscopic colitis colitis colitis Reason for Visit Change in bowel habi ts GERD (gastroesophageal reflux disease) Hiatal hernia Lymphocytic colitis Additional Source Comments (unrecognized sect ion and content) No Status Records FoundNo Status Records FoundNo Status Records FoundNo Status Records FoundNo Status Records FoundNo Status Records FoundNo Status Records FoundNo Status Records Found INFORMATION SOURCE (unrecogn ized section and content) DATE CREATED AUTHOR 07/13/2020 [facility] DATE CREATED AUTHOR AUTHOR'S ORGANIZ ATION 12/15/2022 [facility] DATE CREATED AUTHOR AUTHOR'S ORGANIZ ATION 02/13/2023 [facility] DATE CREATED AUTHOR AUTHOR'S ORGANIZ ATION 03/17/2023 [facility] DATE CREATED AUTHOR AUTHOR'S ORGANIZ ATION 09/29/2023 [employer] DATE CREATED AUTHOR AUTHOR'S ORGANIZ ATION 08/24/2024 [facility] DATE CREATED AUTHOR AUTHOR'S ORGANIZ ATION 08/25/2024 [facility] DATE CREATED AUTHOR AUTHOR'S ORGANIZ ATION 09/03/2024 [facility] Reason for Visit (unrecogniz ed section and content) Reason Comments Annual Exam Specialty Diagnoses / Procedures Referred By Kenia t Referred To Contact Radiology Diagnoses Ischemic cardiomyopathy CHF (NYHA class II, ACC/AHA stage C) (CMS/HCC) Procedures NM heart blood pool ejection fraction wall motion (MUGA) Bud Carlin, DO [address] [facility] 2, [address] [place] [address] Referral ID Status Reason Start Date Expiration Date Visits Requested Visits Authorized [id number] Authorized Perform Procedure 12/20/2023 12/19/2024 2 2 Reason Comments Follow-up 3m Specialty Diagnoses / Procedures Referred By Kenia t Referred To Contact Cardiology Diagnoses Atherosclerosis of coronary artery of [place] heart without angina pectoris, unspecified vessel or lesion type Ischemic cardiomyopathy CHF (NYHA class II, ACC/AHA stage C) ([facility]) Procedures Follow Up In Cardiology Bud Carlin, DO [address] [facility] 2, [address] [place] [address] Yaritza Ortiz, [employer] I ASSEMBLER-[employer] WIRING TECHNICIAN 7[address] [facility] 2, [address] [place] [address] Referral ID Status Reason Start Date Expiration Date V isits Requested Visits Authorized [id number] Authorized 12/20/2023 12/19/2024 1 1 Specialty Diagnoses / Procedures Referred By Kenia t Referred To Contact Cardiology Diagnoses Atherosclerosis of coronary artery of [place] heart without angina pectoris, unspecified vessel or lesion type History of coronary artery bypass graft Ischemic cardiomyopathy Hyperlipidemia, unspecified hyperlipidemia type Dizziness Procedures Vascular US Carotid Artery Duplex Bilateral Bud Carlin, DO [address] [facility] 2, [address] [place] [address] Referral ID Status Reason Start Date Expiration Date Visits Requested Visits Authorized [id number] Authorized Perform Procedure 07/16/2024 07/16/2025 1 1 Care Teams (unrecognized sec tion and content) Nascar Racer Relationship Specialty Start Date End Date Hayden Adams DO [address] [facility] [place] [address] [place] [address] PCP - General Family Medicine 12/20/23 Nascar Racer Relationship Specialty Start Date End Date Hayden Adams [address] [facility] [place] [address] PCP - [facility] 12/20/23 Nascar Racer Relationship Specialty Start Date End Date Hayden Adams DO [address] [facility] [place] [address] PCP - [facility] 12/20/23 Team Status: Active Member Role Status Dates Hayden Adams DO Primary Care Provider Active Team Status: Active Member Role Status Dates Ольга Barros Attending Provider Active Start: June 01, [...] March 15, 2024 End: March 15, 2024 Nascar Racer Relationship Specialty Start Date End Date Juan Francisco Adamsl Joey PCP - General Family Medicine 12/20/23 Team Status: Active Member Role Status Dates Val Carlin DO Specialist Active Crescencio Mendez MD Specialist Active Hayden Adams DO Primary Care Provider Active Team Status: Inactive Member Role Status Dates Hayden Adams DO Primary Care Provider Active St art: July 31, 2024 End: July 31, 2024 Crescencio Mendez MD Attending Provider Active S tart: July 31, 2024 End: July 31, 2024 Nascar Racer Relationship Specialty Start Date End Date FanJuan Franciscorema Hines DO [address] [place] [address] PCP - General Family Medicine 08/20/24 Team Status: Inactive Member Role Status Dates Hayden Adams DO Primary Care Provider Active St art: August 26, 2024 End: August 26, 2024 Crescencio Mendez MD Attending Provider Active S tart: August 26, 2024 End: August 26, 2024 Team Status: Active Member Role Status Dates Hayden Adams DO Primary Care Provider Active St art: August 26, 2024 Crescencio Mendez MD Attending Provider, Other Provider Active Start: August 26, 2024 Goals (unrecognized section and content) Goals [...] BE BASED ON THE PRIMARY CLINICAL RECORDS. [facility] [email or web address] [facility]. provides no warranty or guarantee of the accuracy or completeness of information in this document.
[2024-09-24 08:52] LABS: Basophils Percent Auto 0.1 % (0.2-2.0); Eosinophils Absolute Auto 0.1 10^3/uL (0.0-0.7); Eosinophils Percent Auto 0.5 % (0.9-7.0); Hematocrit 41.3 % (42.0-54.0); Hemoglobin 13.7 g/dL (14.0-18.0); Immature Granulocytes Abs Auto 0.02 10^3/uL (0.00-0.03); Immature Granulocytes Pct Auto 0.2 % (0.0-0.5); Lymphocytes Absolute Auto 2.3 10^3/uL (1.2-3.8); Mean Corpuscular HGB Conc 33.2 g/dL (29.9-35.2); Mean Corpuscular Hemoglobin 32.2 pg (25.9-34.0); Mean Corpuscular Volume 96.9 fL (80.0-94.0); Mean Platelet Volume 10.5 fL (9.5-13.5); Monocytes Absolute Auto 0.4 10^3/uL (0.3-0.8); Monocytes Percent Auto 4.2 % (1.7-12.0); Neutrophils Absolute Auto 6.8 10^3/uL (1.4-6.5); Platelet Count 223 10^3/uL (150-450); Red Blood Count 4.26 10^6/uL (4.70-6.10); Red Cell Distribution Width 13.8 % (11.0-15.0); White Blood Count 9.5 10^3/uL (4.0-11.0)
[2024-09-24 09:07] LABS: Estimated Average Glucose 131 mg/dL; Glycohemoglobin A1C 6.2 % (4.5-6.2)
[2024-09-24 09:13] LABS: Alanine Aminotransferase 19 U/L (16-63); Albumin Globulin Ratio 1.2; Albumin Level 3.5 g/dL (3.4-5.0); Alkaline Phosphatase 85 U/L (46-116); Anion Gap 11.9; Aspartate Amino Transferase 13 U/L (15-37); Bilirubin Direct 0.2 mg/dL (0.0-0.2); Bilirubin Total 0.8 mg/dL (0.2-1.0); Calcium 9.4 mg/dL (8.5-10.1); Chloride 106 mmol/L (98-107); Chol HDL Ratio 1.8; Cholesterol 140 mg/dL (<=200); Estimated GFR (African America 48 (>=60 mL/min/1.73m^2); Estimated GFR (Non-African Ame 40 (>=60 mL/min/1.73m^2); Globulin 2.9 g/dL; Glucose 115 mg/dL (74-106); HDL Cholesterol 80 mg/dL (40-60); Potassium 3.9 mmol/L (3.5-5.1); Sodium 143 mmol/L (136-145); Total Protein 6.4 g/dL (6.4-8.2); Triglycerides 58 mg/dL (<=150); VLDL CHOLESTEROL 11.6 mg/dL
[2024-09-24 09:16] LABS: Percent Iron Saturation 33.2 %
== END 2024-09-24 08:13 | disposition home or self-care (01) ==
LOC: LAB 08:15
PROVIDERS: PCP Family Medicine; Visit Provider Family Medicine
DX: D53.9 Nutritional anemia, unspecified (principal); R68.89 Other general symptoms and signs; F51.04 Psychophysiologic insomnia; D50.8 Other iron deficiency anemias; E78.2 Mixed hyperlipidemia; R73.02 Impaired glucose tolerance (oral); R73.01 Impaired fasting glucose
CPT/HCPCS: 36415; 80048; 80061; 80076; 82728; 83036; 83540; 83550; 84436; 85025

== ENCOUNTER 2025-02-19 09:01 | Outpatient (OUT) | payer MEDICARE, SELFPAY ==
[2025-02-19 09:31] LABS: Basophils Percent Auto 0.1 % (0.2-2.0); Eosinophils Percent Auto 0.2 % (0.9-7.0); Hemoglobin 12.6 g/dL (14.0-18.0); Immature Granulocytes Abs Auto 0.03 10^3/uL (0.00-0.03); Immature Granulocytes Pct Auto 0.3 % (0.0-0.5); Mean Corpuscular HGB Conc 33.2 g/dL (29.9-35.2); Mean Corpuscular Hemoglobin 31.7 pg (25.9-34.0); Mean Corpuscular Volume 95.7 fL (80.0-94.0); Mean Platelet Volume 10.3 fL (9.5-13.5); Monocytes Absolute Auto 0.5 10^3/uL (0.3-0.8); Monocytes Percent Auto 4.4 % (1.7-12.0); Neutrophils Absolute Auto 8.5 10^3/uL (1.4-6.5); Platelet Count 249 10^3/uL (150-450); Red Blood Count 3.97 10^6/uL (4.70-6.10); Red Cell Distribution Width 13.2 % (11.0-15.0); White Blood Count 11.1 10^3/uL (4.0-11.0)
[2025-02-19 09:43] LABS: Estimated Average Glucose 137 mg/dL; Glycohemoglobin A1C 6.4 % (4.5-6.2)
[2025-02-19 10:14] LABS: Alanine Aminotransferase 17 U/L (16-63); Albumin Globulin Ratio 1.1; Albumin Level 3.5 g/dL (3.4-5.0); Alkaline Phosphatase 86 U/L (46-116); Anion Gap 9.2; Aspartate Amino Transferase 14 U/L (15-37); BUN Creatinine Ratio 14.9; Bilirubin Direct 0.1 mg/dL (0.0-0.2); Bilirubin Total 0.4 mg/dL (0.2-1.0); Calcium 9.1 mg/dL (8.5-10.1); Carbon Dioxide 29.8 mmol/L (21.0-32.0); Chloride 106 mmol/L (98-107); Chol HDL Ratio 1.9; Cholesterol 112 mg/dL (<=200); Estimated GFR (African America 48 (>=60 mL/min/1.73m^2); Estimated GFR (Non-African Ame 40 (>=60 mL/min/1.73m^2); Globulin 3.3 g/dL; Glucose 115 mg/dL (74-106); HDL Cholesterol 60 mg/dL (40-60); LDL Cholesterol Calculated 40.6 mg/dL; Sodium 141 mmol/L (136-145); Total Protein 6.8 g/dL (6.4-8.2); Triglycerides 57 mg/dL (<=150); Uric Acid 4.3 mg/dL (3.5-7.2); VLDL CHOLESTEROL 11.4 mg/dL
[2025-02-20 04:11] LABS: Vitamin B12 410 pg/mL (232-1245)
== END 2025-02-19 09:02 | disposition home or self-care (01) ==
LOC: LAB 09:04
PROVIDERS: PCP Family Medicine; Visit Provider Family Medicine
DX: R73.02 Impaired glucose tolerance (oral) (principal); I10 Essential (primary) hypertension; D53.9 Nutritional anemia, unspecified; E78.00 Pure hypercholesterolemia, unspecified; M1A.9XX0 Chronic gout, unspecified, without tophus (tophi)
CPT/HCPCS: 36415; 80048; 80061; 80076; 82607; 82746; 83036; 84550; 85025

== ENCOUNTER 2025-05-22 08:15 | Outpatient (OUT) | payer MEDICARE, SELFPAY ==
--- OUTSIDE RECORDS SUMMARY | 2025-05-22 08:21 | XMS_ITS | Clinical Summary ---
Author Organization [facility] Address [id number] [address] [place] [address] Care Team Providers Care Fresh Work Wrapper Layer Name Role Phone Fabiohemant Cedric Primary Care Provider Unavailabl e Allergies No known active allergies Medications sacubitriL-valsa rtan (ENTRESTO) 24-26 mg tablet Take 1 tablet by mouth 2 (two) times a day. Active isosorbide dinitrate (ISORDIL) 20 mg tablet Take by mouth 3 (three) times a day with meals. Active carvediloL (COREG) 12.5 mg tablet Take by mouth 2 (two) times a day with meals. Active allopurinoL (ZYLOPRIM) 100 mg tablet Take by mouth daily. Active pravastatin (PRAVACHOL) 10 mg tablet Take by mouth daily. Active aspirin 81 mg Take 81 mg by mouth daily. Active coenzyme Q10 30 mg capsule Take 30 mg by mouth 3 (three) times a day. Active cipdbkqt-ytuq-IW -calcium &mins (THERAGRAN-M) 9 mg iron-400 mcg tablet Take 1 tablet by mouth daily. Active Social History Tobacco Use Types Packs/Day Years Used Date Smoking Tobacco: Never Smokeless Tobacco: Never Alcohol Use Standard Drinks/Week Comments Not Currently 0 (1 standard drink = 0.6 oz pur e alcohol) Childcare Answer Date Recorded Childcare Unknown 04/24/2019 Employment Answer Date Recorded Employment Unknown 04/24/2019 Sex and Gender Information Value Date Recorded Sex Assigned at Not on file Legal Sex Male 11:25 AM EDT Gender Identity Not on file Sexual Orientation Not on file Last Filed Vital Signs Vital Sign Reading Time Taken Comments Blood Pressure 168/78 11/19/2021 2:57 PM EST Pulse 49 11/19/2021 1:11 PM EST Temperature 36.4 C (97.5 F) 11/19/2021 1:11 PM EST Respiratory Rate 18 11/19/2021 1:11 PM EST Oxygen Saturation 97% 11/19/2021 2:57 PM EST Inhaled Oxygen Concentration - - Weight 83.9 kg (185 lb) 11/19/2021 11:03 AM EST Height 177.8 cm (5' 10 ) 11/19/2021 11:03 AM EST Body Mass Index 26.54 11/19/2021 11:03 AM EST Plan of Treatment Health Maintenance Due Date Last Done Comments Depression Screening 1957 Tobacco Screening 1957 DTaP,Tdap and Td Vaccines (1 - Tdap) 1963 Zoster (Shingles) Vaccine (1 of 2) 1994 Fall Risk Screening 2009 COVID-19 Vaccine (3 2023-2 5 season) 2024 02/10/2021, 01/20/2021 Influenza Vaccine 07/14/2025 09/13/2019, , 08/09/2016, Additional history exists Medical Devices Not on file Insurance [employer] MEDICARE Care Teams Fresh Work Wrapper Layer Relationship Specialty Start Date End Date Cedric Chavira PCP - General Gastroenterology 11/19/21
--- OUTSIDE RECORDS SUMMARY | 2025-05-22 08:21 | XMS_ITS | Encounter Summary ---
Author Organization [facility] Address [address] [place] [address] Phone Care Team Providers Care Product Marketer Name Role Phone Fox Chavira DO Primary Care Provider [phone] Reason for Visit * Reason Comments Med Refill Encounter Details Date Type Department Care Team (Late st Contact Info) Description 05/20/[address] [phone] Bud Beatty DO [address] [place] [address] 2, [address] [address] Atherosclerosis of coronary artery of [place] heart without angina pectoris, unspecified vessel or lesion type Social History Tobacco Use Types Packs/Day Years Used Date Smoking Tobacco: Former Cigarettes Smokeless Tobacco: Never Alcohol Use Standard Drinks/Week Comments Never 0 (1 standard drink = 0.6 oz pur e alcohol) Sex and Gender Information Value Date Recorded Sex Assigned at Not on file Legal Sex Male 2:16 PM EST Gender Identity Not on file Sexual Orientation Not on file documented as of this encounter Plan of Treatment Upcoming Encounters Date Type Department Care Team (Late st Contact Info) Description 05/22/2025 10:20 AM EDT Office Visit [address] [phone] Bud Beatty DO [address] [place] [address] 2, [address] [phone] documented as of this encounter Visit Diagnoses Diagnosis Atherosclerosis of coronary artery of [place] heart without angina pectoris, unspecified vessel or lesion type documented in this encounter Additional Health Concerns Assessment Noted Time A fall risk assessment has been complete d for the patient 07/16/2024 11:03 AM EDT documented as of this encounter Care Teams Product Marketer Relationship Specialty Start Date End Date Fox Chavira DO [address] [place] [address] PCP - General Family Medicine 08/20/24 documented as of this encounter
--- OUTSIDE RECORDS SUMMARY | 2025-05-22 08:21 | XMS_ITS | Clinical Summary ---
Author Organization [facility] Address [address] [place] [address] Phone Care Team Providers Care Electric Brain Wave Equipment Mechanic Name Role Phone Fox Chavira DO Primary Care Provider [phone] Allergies No known active allergies Medications allopurinol (Zyloprim) 300 mg tablet Take 1 tablet (300 mg) by mouth once daily. 0 Active aspirin 81 mg EC tablet Take 1 tablet (81 mg) by mouth once daily. Active loperamide (Imodium) 2 mg capsule Take 1 capsule (2 mg) by mouth once daily. 1 Active co-enzyme Q-10 30 mg capsule Take 1 capsule (30 mg) by mouth 3 times a day. Active isosorbide mononitrate ER (Imdur) 30 mg 24 hr tabletIndications:A therosclerosis of coronary artery of [place] heart without angina pectoris, unspecified vessel or lesion type Take 1 tablet (30 mg) by mouth once daily. 90 tablet 3 4 07/16/20 25 Active pravastatin (Pravachol) 80 mg tabletIndications:H yperlipidemia, unspecified hyperlipidemia type Take 1 tablet (80 mg) by mouth once daily. 90 tablet 3 4 07/16/20 25 Active sacubitriL-valsarta n (Entresto) 49-51 mg tabletIndications:A therosclerosis of coronary artery of [place] heart without angina pectoris, unspecified vessel or lesion type Take 1 tablet by mouth 2 times a day. 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 07/16/2024 Overweight (BMI 25.0-29.9) 04/02/2024 Blurred vision 04/02/2024 Former smoker 12/20/2023 Atherosclerosis of coronary artery of [place] heart without angina pectoris 10/11/2023 Bradycardia 10/11/2023 Cellulitis 10/11/2023 CHF (NYHA class II, ACC/AHA stage C) (Multi) COPD (chronic obstructive pulmonary disease) ([facility]) 10/11/2023 Dizziness 10/11/2023 Dysplastic nevus of trunk 10/11/2023 Essential hypertension 10/11/2023 History of coronary artery bypass graft 10/11/20 Hyperlipidemia 10/11/2023 Intermittent claudication 10/11/2023 Ischemic cardiomyopathy 10/11/2023 Malignant melanoma of back (Multi) 10/11/2023 Personal history of COVID-19 10/11/2023 Renal insufficiency 10/11/2023 Status post angioplasty 10/11/2023 Encounters Date Type Department Care Team Description 05/20/2025 Refill [place] [id number] [phone] Bud Beatty S, DO Atherosclerosis of coronary artery of [place] heart without angina pectoris, unspecified vessel or lesion type from Last 3 Months Immunizations Immunization Administration Dates Next Due Influenza, Unspecified 08/13/2019,08/13/2018 Pneumococcal Conjugate PCV 7 1944 Pneumococcal conjugate vaccine, 13-valent (PREVN AR 13) 03/12/2018 Pneumococcal polysaccharide vaccine, 23-valent, age 2 years and older (PNEUMOVAX 23) 01/15/2016,11/13/2014 Family History Medical History Relation Name Comments pacemaker Brother Heart attack Father Diabetes Mother Kidney failure Mother Relation Name Status Comments Brother Father Mother Social History Tobacco Use Types Packs/Day Years Used Date Smoking Tobacco: Former Cigarettes Smokeless Tobacco: Never Tobacco Cessation:Counseling Given: Not Answered Alcohol Use Standard Drinks/Week Comments Never 0 (1 standard drink = 0.6 oz pur e alcohol) Sex and Gender Information Value Date Recorded Sex Assigned at Not on file Legal Sex Male 2:16 PM EST Gender Identity Not on file Sexual Orientation Not on file Last Filed Vital Signs Vital Sign Reading Time Taken Comments Blood Pressure 132/76 07/16/2024 11:08 AM EDT Pulse 72 07/16/2024 11:08 AM EDT Temperature 36.5 C (97.7 F) 09/06/2022 12:38 PM EDT Respiratory Rate 18 09/06/2022 12:38 PM EDT Oxygen Saturation 96% 09/06/2022 12:38 PM EDT Inhaled Oxygen Concentration - - Weight 77.1 kg (170 lb) 07/16/2024 11:05 AM EDT Height 177.8 cm (5' 10 ) 07/16/2024 11:05 AM EDT Body Mass Index 24.39 07/16/2024 11:05 AM EDT Plan of Treatment Upcoming Encounters Date Type Department Care Team (Late st Contact Info) Description 05/22/2025 10:20 AM EDT Office Visit [facility] [address] [facility] [address] [place] [address] Bud Beatty DO [address] [facility] [address], [address] [place] [address] Health Maintenance Due Date Last Done Comments Echocardiogram 1945 Lipid Panel 1945 Medicare Annual Wellness Visit (AWV) 1945 Skin Cancer Screening 1944 DTaP/Tdap/Td Vaccines (1 - Tdap) 1966 Zoster Vaccines (1 of 2) 1994 RSV High Risk: (Elderly (60+) or Population) (1 - 1-dose 75+ series) 2019 Creatinine Level 07/05/2023 07/05/2022 Diabetes Screening 07/05/2023 07/05/2022 Potassium Level 07/05/2023 07/05/2022 COVID-19 Vaccine ( - season) 2024 02/10/2021, 01/20/2021 Influenza Vaccine (#1) 2025 9, 08/13/2019, 09/20/2018, Additional history exists Pneumococcal Vaccine Completed 03/12/2018, 01/15/2016, 11/13/2014, Additional history exists HIB Vaccines Aged Out No longer eligi ble based on patient's age to complete this topic HPV Vaccines (No Doses Required) Completed Hepatitis A Vaccines Aged Out No long er eligible based on patient's age to complete this topic Hepatitis B Vaccines Aged Out No long er eligible based on patient's age to complete this topic IPV Vaccines Aged Out No longer eligi ble based on patient's age to complete this topic Meningococcal Vaccine Aged Out No julio ravi eligible based on patient's age to complete this topic Rotavirus Vaccines Aged Out No longer eligible based on patient's age to complete this topic Procedures Procedure Name Priority Date/Time Associated Diagnosis Comments BASIC METABOLIC PANEL Routine 07/05/2022 10:56 AM EDT from Last 3 Months or Most Recently Relevant to Health Maintenance Results * (ABNORMAL) Basic Metabolic Panel (07/05/2022 10:56 AM EDT) Glucose 90 74 - 99 mg/dL [facility] Sodium 139 136 - 145 mmol/L [facility] Potassium 4.1 3.5 - 5.3 mmol/L [facility] Chloride 104 98 - 107 mmol/L [facility] Bicarbonate 29 21 - 32 mmol/L [facility] Anion Gap 10 10 - 20 mmol/L [facility] Urea Nitrogen 25(H) 6 - 23 mg/dL [facility] Creatinine 1.66(H) 0.50 - 1.30 mg/dL [facility] GFR MALE 42(A) >90 mL/min/1.7 3m2 [facility] Comment: CALCULATIONS OF ESTIMATED GFR ARE PERFORMED USING THE 2020 CKD-EPI STUDY REFIT EQUATION WITHOUT THE RACE VARIABLE FOR THE IDMS-TRACEABLE CREATININE METHODS. https://jasn.asnjournals.org/content/early//ASN.1499902564 Calcium 9.2 8.6 - 10.3 mg/dL [facility] 07/05/2022 10:5 6 AM EDT 07/05/2022 11:08 AM EDT Harrison Valencia DRAFTER DIRECTIONAL SURVEY-HOLLOW CORE DOOR FRAME ASSEMBLER LAB BLOOD ORDERABLES F inal Result [facility] [id number] [id number] from Last 3 Months or Most Recently Relevant to Health Maintenance Insurance [employer] MEDICARE Care Teams Electric Brain Wave Equipment Mechanic Relationship Specialty Start Date End Date Fox Chavira DO [address] [facility] [place] [address] PCP - General Family Medicine 08/20/24
--- OUTSIDE RECORDS SUMMARY | 2025-05-22 08:21 | XMS_ITS | Encounter Summary ---
Author Organization [facility] Address [address] [place] [address] Care Team Providers Care Care Nurse Rn Name Role Phone Unavailable Primary Care Provider Unavailabl e Encounter Details Date Type Department Care Team ([facility] Contact Info) Description 03/17/2025 Results Follow-Up [facility] [address] [place] [address] Saskia Cordova MD [address] [place] [address] Social History Tobacco Use Types Packs/Day Years Used Date Smoking Tobacco: Never Smokeless Tobacco: Never Alcohol Use Standard Drinks/Week Comments Defer 0 (1 standard drink = 0.6 oz pur e alcohol) Sex and Gender Information Value Date Recorded Sex Assigned at Not on file Legal Sex Male 6:53 PM EDT Gender Identity Not on file Sexual Orientation Not on file documented as of this encounter Plan of Treatment Upcoming Encounters Date Type Department Care Team ([facility] Contact Info) Description 06/11/2025 2:15 PM EDT Office Visit [facility] [address] [place] [address] Saskia Cordova MD [address] [place] [address] 02/11/2026 1:30 PM EDT Office Visit [facility] [address] [place] [address] Estrella Lofton PA [address] [place] [address] documented as of this encounter Visit Diagnoses Not on filedocumented in this encounter
--- OUTSIDE RECORDS SUMMARY | 2025-05-22 08:21 | XMS_ITS | Encounter Summary ---
Author Organization [facility] Address [address] [place] [place] [address] Phone Care Team Providers Care Master Electrician Name Role Phone Fox Chavira DO Primary Care Provider [phone] Encounter Details Date Type Department Care Team (Late st Contact Info) Description 02/19/2025 Scanned Document [facility] [address] [place] [phone] Scanning, Generic Provider Social History Tobacco Use Types Packs/Day Years [...] Description 05/22/2025 10:20 AM EDT Office Visit [place] [id number] [facility] [address] [place] [address] Bud Beatty DO [address] [facility] [address], [address] [place], [place] [phone] documented as of this encounter Visit Diagnoses Not on filedocumented in this encounter Additional Health Concerns Assessment Noted Time A fall risk assessment has been complete d for the patient 07/16/2024 11:03 AM EDT documented as of this encounter Care Teams Master Electrician Relationship Specialty Start Date End Date Fox Chavira DO [address] [facility] [place] [address] PCP - General Family Medicine 08/20/24 documented as of this encounter
--- OUTSIDE RECORDS SUMMARY | 2025-05-22 08:21 | XMS_ITS | Encounter Summary ---
Author Organization [facility] Address [address] [place] [address] Phone Care Team Providers Care Dental Hygiene Administrative Assistant Name Role Phone Fox Chavira DO Primary Care Provider [phone] Fox Chavira DO Primary Care Provider [phone] Encounter Details Date Type Department Care Team (Late st Contact Info) Description 02/29/2024 Scanned Document [facility] [address] [place] [id number] Scanning, Generic Provider Social History Tobacco Use [...] Description 05/22/2025 10:20 AM EDT Office Visit [facility] [address] [facility] [address] [place] [address] Bud Beatty DO [address] [facility] [address] [place] [address] documented as of this encounter Visit Diagnoses Not on filedocumented in this encounter Additional Health Concerns Assessment Noted Time A fall risk assessment has been complete d for the patient 12/20/2023 2:41 PM EST documented as of this encounter Care Teams Dental Hygiene Administrative Assistant Relationship Specialty Start Date End Date Fox Chavira DO PCP - General Family Medicine 12/20/23 08/19/24 Fox Chavira DO [address] [place] [address] PCP - General Family Medicine 08/20/24 documented as of this encounter
--- OUTSIDE RECORDS SUMMARY | 2025-05-22 08:21 | XMS_ITS | Encounter Summary ---
Author Organization [facility] Address [address] [place] [address] Phone Care Team Providers Care Special Education Professional Name Role Phone Fox Chavira DO Primary Care Provider [phone] Fox Chavira DO Primary Care Provider [phone] Encounter Details Date Type Department Care Team (Late st Contact Info) Description 03/26/2024 Scanned Document [facility] [address] [place] [phone] Scanning, Generic Provider Social History Tobacco Use [...] Description 05/22/2025 10:20 AM EDT Office Visit [facility] [address] [facility] [address] [place] [address] Bud Beatty DO [address] [facility] [address] [place] [address] documented as of this encounter Visit Diagnoses Not on filedocumented in this encounter Additional Health Concerns Assessment Noted Time A fall risk assessment has been complete d for the patient 12/20/2023 2:41 PM EST documented as of this encounter Care Teams Special Education Professional Relationship Specialty Start Date End Date Fox Chavira DO PCP - General Family Medicine 12/20/23 08/19/24 Fox Chavira DO [address] [place] [address] PCP - General Family Medicine 08/20/24 documented as of this encounter
--- OUTSIDE RECORDS SUMMARY | 2025-05-22 08:21 | XMS_ITS | Clinical Summary ---
Author Organization [facility] Address [address] [place] [address] Care Team Providers Care [place]. Senator Name Role Phone Unavailable Primary Care Provider Unavailabl e Allergies No known active allergies Medications gabapentin (Neurontin) 300 MG capsule 5 Active loperamide (Imodium) 2 MG capsule 4 Active Entresto 24-26 MG tablet Take 1 tablet by mouth in the morning and 1 tablet in the evening. Active pravastatin (Pravachol) 80 MG tablet Take 80 mg by mouth in the morning. 4 07/16/20 25 Active isosorbide mononitrate ER (Imdur) 30 MG 24 hr tablet Take 30 mg by mouth in the morning. 4 07/16/20 25 Active co-enzyme Q-10 30 MG capsule Take 30 mg by mouth in the morning and 30 mg at noon and 30 mg in the evening. Active ciclopirox (Loprox) 0.77 % cream APPLY TO THE AFFECTED AREA(S) topically (feet) TWICE DAILY 4 Active budesonide EC (Entocort EC) 3 MG 24 hr capsule TAKE 3 CAPSULES BY MOUTH DAILY for FOUR weeks then TAKE 2 CAPSULES BY MOUTH DAILY for 2 (TWO) weeks then TAKE 1 CAPSULE BY MOUTH DAILY for 2 (TWO) weeks 5 Active aspirin 81 MG EC tablet Take 81 mg by mouth in the morning. Active allopurinol (Zyloprim) 300 MG tablet 5 Active Nitroglycerin (NITROSTAT SL) Nitrostat Activ e Active Problems No known active problems Encounters Date Type Department Care Team Description 03/27/2025 1:10 PM EDT Office Visit [facility] [address] [place] [phone] Saskia Cordova MD Encounter for removal of sutures (Primary Dx) 03/27/2025 Bamboo flowsheet [facility] [address] [place] [address] Saskia Cordova MD 03/27/2025 Travel 03/17/2025 Results Follow-Up [facility] [address] [place] [address] Saskia Cordova MD 03/12/2025 2:00 PM EDT Office Visit [facility] [address] [place] [address] Saskia Cordova MD 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) 03/12/2025 Bamboo flowsheet [facility] [address] [place] [address] Saskia Cordova MD 03/12/2025 Travel from Last 3 Months Social History Tobacco Use Types Packs/Day Years Used Date Smoking Tobacco: Never Smokeless Tobacco: Never Tobacco Cessation:Counseling Given: Not Answered Alcohol Use Standard Drinks/Week Comments Defer 0 (1 standard drink = 0.6 oz pur e alcohol) Sex and Gender Information Value Date Recorded Sex Assigned at Not on file Legal Sex Male 6:53 PM EDT Gender Identity Not on file Sexual Orientation Not on file Last Filed Vital Signs Vital Sign Reading Time Taken Comments Blood Pressure 142/79 07/09/2020 12:00 PM EDT Pulse - - Temperature - - Respiratory Rate - - Oxygen Saturation - - Inhaled Oxygen Concentration - - Weight 86.2 kg (190 lb) 09/05/2018 12:00 PM EDT Height 180.3 cm (5' 11 ) 01/21/2022 12:00 PM EST Body Mass Index 26.5 09/05/2018 12:00 PM EDT Plan of Treatment Upcoming Encounters Date Type Department Care Team (Late st Contact Info) Description 06/11/2025 2:15 PM EDT Office Visit [facility] [address] [place] [address] Saskia Cordova MD [address] [place] [address] 02/11/2026 1:30 PM EDT Office Visit [facility] [address] [place] [address] Nisha LoftoneMARILYN [address] [place] [address] Health Maintenance Due Date Last Done Comments Influenza Vaccine (#1) 2025 9, 08/13/2019, 09/20/2018, Additional history exists Pneumococcal Vaccine: 65+ Years Completed 03/12/2018, 01/15/2016, 11/13/2014 Procedures Procedure Name Priority Date/Time Associated Diagnosis Comments SKIN REPAIR Routine 03/12/2025 2:33 PM EDT 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 Any tissue redundancies were removed. Subcutaneous layers (deep stitches): Suture size: 3-0 Suture type comment: Biosyn Stitches: Buried horizontal mattress (Closure was performed in a layered fashion with subcutaneous tissue closed first using tension-bearing absorbable sutures to the level of the superficial fascia.) Fine/surface layer approximation (top stitches): Suture size: 4-0 Suture type: Prolene (polypropylene) Stitches: simple running Stitches comment: Epicuticular skin sutures were then placed with minimal tension. Suture removal (days): 14 Outcome: patient tolerated procedure well with no complications Post-procedure details: sterile dressing applied and wound care instructions given Post-procedure details comment: It was emphasized to the patient to contact the office for any signs of infection, uncontrollable bleeding, or complications. Dressing type: bandage Result [facility] Saskia Cordova MD DERM PROCEDURE ORDERABLES Fin al Result * Skin excision (03/12/2025 2:33 PM EDT) Leonora CruzSTEVEN - 03/12/2025 2:33 PM EDT Lesion length (cm): 0.5 Lesion width (cm): 0.4 Margin per side (cm): 0.5 Total excision diameter (cm): 1.5 Informed consent: discussed and consent obtained Informed consent comment: Risks and possible complications were discussed as noted on the consent form. The consent form was signed prior to the procedure. Timeout: patient name, date of , surgical site, and procedure verified Timeout comment: Patient and provider identified site. Site was marked and excision was drawn out. Photo was taken and shown to patient, patient verified this is the correct site. Procedure prep: Patient was prepped and draped in usual sterile fashion (The planned incision lines were drawn along relaxed skin tension lines, if possible, to minimize scarring and deformity of surrounding structures.) Prep type: Chlorhexidine Anesthesia: the lesion was anesthetized in a standard fashion Anesthesia comment: The local anesthetic was injected to create a field block at the site of the procedure. Anesthetic: 1% lidocaine w/ epinephrine 1-100,000 buffered w/ 8.4% NaHCO3 Instrument used: #15 blade Instrument used comment: Incisions were made as drawn, and the surrounding tissue was undermined until the skin edges could be approximated without undue tension. Any tissue redundancies were removed. Hemostasis achieved with: electrodesiccation Additional details: Amount of lidocaine used: 16.0 ml Estimated blood loss: < 1.0 ml Saskia Cordova MD DERM PROCEDURE ORDERABLES Fin al Result * Dermatopathology exam (03/12/2025 12:00 AM EDT) SPECIMEN TYPE ------ SPECIMEN: LEFT UPPER ARM ------ [facility] ICD10 Code D03.60 [facility] PROTOCOL EXC - EXCISION [facility] Final Diagnosis WOUND REPAIR REACTION WITH STROMAL INFLAMMATION-M ARGINS CLEAR IN TISSUE PLANES EXAMINED. COMMENT: This material was reviewed with [id number], which shows a melanoma in situ. Beneath the wound repair reaction, there is fibrotic collagen suggestive of an established scar, which is not transected in sections examined. This material was reviewed with Dr. Villagran. [facility] Gross Text 0.5x0.5cm scar 0.6cm from margin 3 blocks, (tips in 1) (4 in 2) (3 in 3) (jg/vm) (03/14/25) [facility] Microscopic Description Microscopic examination performed. [facility] CPT 90627*1 [facility] Skin Topography unknown / Unknown 03/12/2025 2:33 PM EDT Comment:Differential Diagnos is: Melanoma in-situ Check Margins: yes Previous accession number: [id number] us Saskia Cordova MD LAB PATHOLOGY ORDERABLES Dominique hodgson Result [facility] from Last 3 Months Insurance [facility]
[2025-05-22 08:38] LABS: Hematocrit 39.9 % (42.0-54.0); Hemoglobin 13.6 g/dL (14.0-18.0); Immature Granulocytes Abs Auto 0.01 10^3/uL (0.00-0.03); Immature Granulocytes Pct Auto 0.1 % (0.0-0.5); Lymphocytes Absolute Auto 2.5 10^3/uL (1.2-3.8); Mean Corpuscular HGB Conc 34.1 g/dL (29.9-35.2); Mean Corpuscular Hemoglobin 32.7 pg (25.9-34.0); Mean Corpuscular Volume 95.9 fL (80.0-94.0); Platelet Count 199 10^3/uL (150-450); Red Blood Count 4.16 10^6/uL (4.70-6.10); White Blood Count 8.4 10^3/uL (4.0-11.0)
[2025-05-22 08:54] LABS: INR 0.99; Prothrombin Time 10.5 sec (9.0-11.6)
== END 2025-05-22 08:16 | disposition home or self-care (01) ==
PROVIDERS: PCP Family Medicine; Visit Provider Internal Medicine
DX: K21.9 Gastro-esophageal reflux disease without esophagitis (principal); K52.838 Other microscopic colitis; I25.10 Atherosclerotic heart disease of native coronary artery without angina pectoris
CPT/HCPCS: 36415; 85025; 85610

== ENCOUNTER 2025-09-02 09:12 | Outpatient (OUT) | payer MEDICARE, SELFPAY ==
--- OUTSIDE RECORDS SUMMARY | 2025-09-02 09:20 | XMS_ITS | Clinical Summary ---
Author Organization [facility] tem Address [id number] [address] [place] [address] Care Team Providers Care Story Analyst Name Role Phone Cedric Chavira Primary Care Provider Unavailabl e Allergies No known active allergies Medications MedicationSigDispense QuantityRefillsLast FilledStart DateEnd DateStatus sacubitriL-valsartan (ENTRESTO) 24-26 mg tablet Take 1 tablet by mouth 2 (two) times a day.Active isosorbide dinitrate (ISORDIL) 20 mg tablet Take by mouth 3 (three) times a day with meals.Active carvediloL (COREG) 12.5 mg tablet Take by mouth 2 (two) times a day with meals.Active allopurinoL (ZYLOPRIM) 100 mg tablet Take by mouth daily.Active pravastatin (PRAVACHOL) 10 mg tablet Take by mouth daily.Active aspirin 81 mg Take 81 mg by mouth daily.Active coenzyme Q10 30 mg capsule Take 30 mg by mouth 3 (three) times a day.Active qyggotpk-yqlr-LV-calcium &mins (THERAGRAN-M) 9 mg iron-400 mcg tablet Take 1 tablet by mouth daily.Active Social History Tobacco UseTypesPacks/DayYears UsedDateSmoking Tobacco: NeverSmokeless Tobacco: NeverAlcohol UseStandard Drinks/WeekCommentsNot Currently0 (1 standard drink = 0.6 oz pure alcohol)ChildcareAnswerDate YtbblivbJpefptploUsfzdow66/12/2019 EmploymentAnswerDate UvlvaxswQpxhekjrsdGgtsswq15/12/2019Sex and Gender InformationValueDate RecordedSex Assigned at BirthNot on fileLegal SexMale 06/18/2015 11:25 AM EDTGender IdentityNot on fileSexual OrientationNot on file Last Filed Vital Signs Vital SignReadingTime TakenCommentsBlood Xnoapeoo641/7801 2:57 PM EST Cadgv5941/05/2022 1:11 PM CXGSqapzcvibvy17.4 ??C (97.5 ??F)11/19/2021 1:11 PM ESTRespiratory Tafw137511/19/2021 1:11 PM ESTOxygen Ntonelovro06%11/19/2021 2:57 PM ESTInhaled Oxygen Concentration--Pzoxzh10.9 kg (185 lb)11/19/2021 11:03 AM OQCGpdjrg427.8 cm (5' 10 )11/19/2021 11:03 AM ESTBody Mass Index26.54011/19/2021 11:03 AM EST Plan of Treatment Health MaintenanceDue DateLast DoneCommentsDepression Nqsddhxlt90/02/1956Tobacco Zmuakkmlk95/02/1956DTaP,Tdap and Td Vaccines (1 - Tdap)1963Zoster (Shingles) Vaccine (1 of 2)1994Fall Risk Ryqfbtddk81/02/2009COVID-19 Vaccine (3 - season)/, 01/20/2021Influenza Vaccine /11/2018, 09/20/2018, 08/09/2016, Additional history exists Medical Devices Not on file Insurance Care Teams Team MemberRelationshipSpecialtyStart DateEnd Date Cedric Chavira PCP - GeneralGastroenterology11/19/21
--- OUTSIDE RECORDS SUMMARY | 2025-09-02 09:20 | XMS_ITS | CCD ---
Author Organization [facility] Care Team Providers Care Cosmetics Demonstrator Name Role Phone Oberer Hayden L Unavailable Unavailable Unavailable Oberer, Hayden Unavailable Crescencio Mendez Unavailable Jacob Marrero Unavailable Julita Owen Unavailable Unavailable Oberer, Hayden Joey Primary Care Unavailable Angel, MIGUEL A Yaritza Attending Unavailable Ortiz, TRACER POWDER BLENDER Yaritza Referring Unavailable Oberer, Hayden Joey Primary Care Unavailable Rogerio, Dr. Bud Jacobson Attending Unava ilamanda Beatty, Dr. Bud Jacobson Referring Unava ilable Oberer, Hayden Joey Primary Care Unavailable Rogerio, Dr. Bud Jacobson Attending Unava ilamanda Beatty, Dr. Bud Jacobson Referring Unava ilable AKREN Jacinto, Dr. ОЛЬГА GUERRERO Attending Un available [...] Oberer, Hayden Joey Primary Care Unavailable Angel, TRACER POWDER BLENDER Yaritza Attending Unavailable Ortiz, TRACER POWDER BLENDER Yaritza Referring Unavailable Oberer, Hayden Cook Primary Care Unavailable Ortiz, MIGUEL A Vigil Attending Unavailable Ortiz, MIGUEL [...] Unavailable OBERER, DR BLAKE Consulting Unavailable Oberer DO, Hayden Cook Primary Care Provider Ольга Barros Attending Provider [phone] Oberer DO, Hayden Cook Primary Care Provider Unajonathan rodasle Oberer DO, Hayden Hines Primary Care Provider [phone] Oberer, DO Hayden Primary Care Provider [phone] MD Crescencio Mendez Attending Provider Crescencio Mendez Attending Unavailable Crescencio Mendez Admitting Unavailable ObererHayden Primary Care Unavailable Ольга Barros Attending Provider [phone] Oberer DO, Hayden Primary Care Provider Crescencio Mendez MD Attending Provider Oberer DO, Hayden Hines Primary Care Provider [phone] BUD BEATTY Referring Unavailable OBERER, HAYDEN L Primary Care Unavailable BUD BEATTY Referring Unavailable OBERER, HAYDEN L Primary Care Unavailable BUD BEATTY Referring Unavailable OBERER, HAYDEN L Primary Care Unavailable Unavailable Primary Care Provider Unavailabl e Oberer DO, Hayden Primary Care Provider Oberer DO Hayden Attending Provider [phone] Crescencio Mendez MD Attending Provider Hayden Adams DO Primary Care Provider BUD BEATTY Attending Unavailable BUD BEATTY Referring Unavailable HAYDEN ADAMS Primary Care Unavailable BUD BEATTY Attending Unavailable BUD BEATTY Referring Unavailable HAYDEN ADAMS Primary Care Unavailable Hayden Adams DO Primary Care Provider Hayden Adams DO Attending Provider [phone] Hayden Adams MD Primary Care Provider JAKE VALADEZ Attending Unavailable JENNIFER CORDOVA Attending Unavailable JENNIFER CORDOVA Attending Unavailable JOB HELM Attending Unavailable PETITTJENNIFER Caldwell Attending Unavailable Allergies Allergy ClassificationReported Allergen(s)Allergy TypeDate of OnsetReaction(s) Facility (20 sources)amLODIPineDrug Pqxhkam54-09-2124crwfkexnbm [facility] (20 sources)MetoprololDrug Lfenjth59-41-7184STSrjnvgmivPremier [facility] (1 source)No AlertPropensity to adverse reactions to dbbs28-28-3581[facility] (1 source)amLODIPineDrug Srdaeqw11-65-8547GwdnwvhzpMer[facility] (1 source)MetoprololDrug Vbwvfdz96-89-7058KhuxuthtlMercy Health [facility] Medications Current Medications MedicationDrug Class(es)DatesSig (Normalized)Sig (Original)aspirin 81 mg chewable tablet (20 sources)Platelet Aggregation Inhibitor, Nonsteroidal Anti-inflammatory Drug Start: 94-43-3119ljcr 1 tablet by mouth once daily in the eveningAspirin 81 mg Tablet,Chewable Active 81 MG PO Daily June 21, 2019 12:00am takes in PM Complies with drug therapyStart: 05-46-3834rerr 81 mg by mouth once daily in the eveningAspirin Active 81 MG PO Daily June 21, 2019 12:00am takes in PMtake 1 tablet by mouth in the morningaspirin 81 MG EC tablet Take 81 mg by mouth in the morning. Activebudesonide 3 mg delayed release oral capsule (20 sources)CorticosteroidStart: 02-12-2025 End: 66-24-9495ydyj 3 capsules by mouth once daily, then take 2 capsules by mouth once daily, then take 1 capsule by mouth once dailybudesonide EC (Entocort EC) 3 MG 24 hr capsule TAKE 3 CAPSULES BY MOUTH DAILY for FOUR weeks then TAKE 2 CAPSULES BY MOUTH DAILY for 2 (TWO) weeks then TAKE 1 CAPSULE BY MOUTH DAILY for 2 (TWO) weeks02/12/2025 ActiveStart: 09-02-2024 End: 26-03-7940fudu 3 capsules by mouth once daily, then take 2 capsules by mouth once daily, then take 1 capsule by mouth once dailyBudesonide 3 mg capsule,delayed,extend.release Discontinued 0 .ROUTE .COMPLEX 182 September 02, 2024 4:18pm February 12, 2025 2:22pm TAKE 3 CAPSULES BY MOUTH DAILY for FOUR weeks then TAKE 2 CAPSULES BY MOUTH DAILY for 2 (TWO) weeks, then TAKE 1 CAPSULE BY MOUTH DAILY for 2 (TWO) weeksStart: 09-02-2024 End: 69-66-8000gihx 3 tablets by mouth once daily, then take 2 tablets by mouth once daily, then take 1 tablet by mouth once dailyBudesonide 3 mg capsule,delayed,extend.release Discontinued 3 MG PO Daily 132 56 September 022:00am September 02, 2024 4:18pm 3 tabs daily for 4 weeks, 2 tabs daily for 2 weeks, and 1 tab daily for 2 weeksCalcium & Magnesium Carbonates (8 sources)Calcium & Magnesium Carbonates Activeciclopirox 7.7 mg/ml topical cream (20 sources)Start: 59-24-5200qtairhmzwh (Loprox) 0.77 % cream APPLY TO THE AFFECTED AREA(S) topically (feet) TWICE DAILY 08/29/2024 ActiveStart: 03-15-2024 End: 51-28-4054Ztqdponcqy (Loprox (As Olamine)) 0.77 % cream Discontinued 1 APPLIC TOPICAL Twice daily March 12:00am July 31, 2024 1:16pm Apply to feetCo Q 10 (20 sources)Co Q 10 Activecolchicine 0.6 mg oral tablet (13 sources)Start: 10-25-2021 End: 87-66-1309wncf 1 tablet by mouth once daily as neededcolchicine 0.6 mg tablet Take 1 tablet (0.6 mg) by mouth once daily. As needed for gout flare 10/25/2021 07/16/2024 Discontinued (Therapy completed)Start: 10-25-2021 Colchicine 0.6 MG Oral Tablet Quantity: 3 Refills: 0 Ordered: 25-Oct-2021 DO Start : 25-Oct-2021 ActiveStart: 74-49-2825Myqkldj 0.6 MG 2 tablets initially and 1 tablet in 1 hour Orally for 30 day(s) Oct, Activegabapentin 300 mg oral capsule (20 sources)Anti-epileptic AgentStart: 09-25-2024 End: 26-53-5292qsaxmnmbwp (Neurontin) 300 MG capsule 01/21/2025 ActiveStart: 03-15-2024 End: 11-17-8343oizy 1 capsule by mouth once daily at bedtimeGabapentin (Neurontin) 100 mg capsule Discontinued 100 MG PO Daily at bedtime March 15, 2024 12:00am July 31, 2024 1:16pmtake 1 capsule by mouth three times dailygabapentin (Neurontin) 300 mg capsule Take 1 capsule (300 mg) by mouth 3 times a day. Activehydrocortisone 25 mg/ml topical cream (3 sources)CorticosteroidStart: 72-66-1255Rpsfadcjlwfnqb (Proctozone-Hc) 2.5 % cream with perineal applicator Active 1 APPLIC DC 2-4 TIMES PER DAY as needed for hemorrhoids March 18, 2025 12:00am Complies with drug dzkzijg28 hr isosorbide mononitrate 30 mg extended release oral tablet (20 sources)Nitrate VasodilatorStart: 06-25-2019 End: 33-25-0267bvrw 1 tablet by mouth in the morning, then take 1 tablet by mouth every twenty-four hoursisosorbide mononitrate ER (Imdur) 30 MG 24 hr tablet Take 30 mg by mouth in the morning. 07/16/2024ctiveIsosorbide Mononitrate KzouelQ-Oqrrwfnhrrvh-Esbao-B12-B6 (Metanx) 3-90.314-2-35 MG capsule (5 sources)Start: 06-20-2025 End: 02-93-1839clse 1 capsule by mouth in the mruaxiwQ-Dbtfrpvtadvt-Lwnqz-B12-B6 (Metanx) 3-90.314-2-35 MG capsule Indications: Neuritis , Neuropathy, idiopathic Take 3 mg by mouth in the morning and 3 mg before bedtime. 180 capsule 3 06/20/2025 09/18/2025 Kibbyo287 actuat levalbuterol 0.045 mg/actuat metered dose inhaler (20 sources)beta2-Adrenergic AgonistStart: 09-20-2021 End: 64-14-3553iieu 1-2 puff(s) by inhalation every six hourslevalbuterol (Xopenex) 45 mcg/actuation inhaler Inhale 1-2 puffs every 6 hours if needed. 09/20/2021 07/16/2024 Discontinued (Therapy completed)Start: 09-20-2021 Levalbuterol Tartrate 45 MCG/ACT Inhalation Aerosol As directed. Quantity: 0 Refills: 0 Ordered: 20-Sep-2021 DO Start : 20-Sep-2021 ActiveStart: 06-25-2019 End: 60-98-3316kxna 1 puff(s) by inhalation every four to six hours as needed for wheezingLevalbuterol Tartrate (Xopenex Hfa) 45 mcg/actuation Hfa Aerosol Inhaler Discontinued 1 PUFF INHALATION EVERY 4-6 HOURS as needed for Wheezing June 25, 2019 12:00am July 31, 2024 1:16pmtake 1 puff(s) by inhalation every four hours as neededXopenex HFA 45 MCG/ACT 1 puff as needed Inhalation every 4 hrs for 30 days PRN Activeloperamide hydrochloride 2 mg oral capsule (20 sources)Opioid AgonistStart: 05-30-2024 End: 35-79-3325wnjjbqxwyf (Imodium) 2 MG capsule 06/22/2024 ActiveStart: 29-46-6543igzr 1 capsule by mouth once dailyloperamide (Imodium) 2 mg capsule Take 1 capsule (2 mg) by mouth once daily. 09/22/2021 ActiveStart: 09-20-2021 take 1 tablet by mouth once dailyLoperamide A-D 2 MG 1 tab(s) Orally qd for 90 day(s) Sep, Not-Takingpravastatin sodium 80 mg oral tablet (20 sources)HMG-CoA Reductase InhibitorStart: 05-06-2019 End: 82-55-3101rbac 1 tablet by mouth in the morningpravastatin (Pravachol) 80 MG tablet Take 80 mg by mouth in the morning. 07/16/2024 Activesacubitril 49 mg / valsartan 51 mg oral tablet (20 sources)Angiotensin 2 Receptor BlockerStart: 12-08-2021 End: 90-62-0394wour 1 tablet by mouth twice dailySacubitril-Valsartan (Entresto) 49-51 mg tablet Active 1 TAB PO Twice daily March 15, 2024 12:00am Complies with drug therapyStart: 04-07-2020 End: 46-91-9997lglb 1 tablet by mouth twice dailySacubitril-Valsartan 24-26 mg tablet Discontinued 1 TAB PO Twice daily April 07, 2020 12:00am March 15, 2024 1:39pmtake 1 tablet by mouth in the morningEntresto 24-26 MG tablet Take 1 tablet by mouth in the morning and 1 tablet in the evening. Activeubidecarenone 10 mg oral capsule (20 sources)Start: 35-16-5522Kzakggql Q10 (Co Q-10) 10 mg Capsule Active 10 MG PO Once April 07, 2020 12:00am Complies with drugtherapyco-enzyme Q-10 30 MG capsule Take 30 mg by mouth in the morning and 30 mg at noon and 30 mg in the e vening. Active Completed/Discontinued Medications MedicationDrug Class(es)DatesSig (Normalized)Sig (Original)allopurinol 300 mg oral tablet (20 sources)Xanthine Oxidase InhibitorStart: 03-06-2025 End: 39-03-3179vikf 1 tablet by mouth once dailyAllopurinol 300 mg tablet Discontinued 0 .ROUTE .COMPLEX 90 March 06, 2025 8:33am March 18, 2025 8:59am TAKE 1 TABLET BY MOUTH DAILY FOR GOUTStart: 05-06-2019 End: 65-37-3380qfktxbcopsf (Zyloprim) 300 MG tablet 01/09/2025 Active azithromycin 500 mg oral tablet (9 sources)Macrolide AntimicrobialStart: 02-13-2024 End: 03-14-8033bhzq 1 mg by mouth once dailyAzithromycin (Zithromax Tri-Jacinto) 500 mg tablet Discontinued 0 PO daily 3 February 13, 2024 12:00am March 15, 2024 1:35pm For 500 mg dose pack: take 500 mg once daily for 3 days orally daily;carvedilol 12.5 mg oral tablet (20 sources)alpha-Adrenergic Ezequiel, beta-Adrenergic BlockerStart: 07-09-2021 End: 61-37-2700wxlp 1 tablet by mouth twice dailycarvedilol (Coreg) 12.5 mg tablet Indications: Atherosclerosis of coronary artery of [place] heart without angina pectoris, unspecified vessel or lesion type , Ischemic cardiomyopathy Take 1 tablet (12.5 mg) by mouth 2 times a day. 180 tablet 3 10/12/2023 04/02/2024 Discontinued (Therapy completed)Start: 69-91-4870ocif 0.5 tablet by mouth twice dailyCarvedilol 12.5 MG Oral Tablet TAKE 1/2 TABLET TWICE DAILY. Quantity: 30 Refills: 0 Ordered: 22-Dec-2021 Yaritza Huertas Start : 09-Jul-2021 ActiveStart: 06-25-2019 End: 69-91-1996yfdk 1 tablet by mouth twice daily at mealtimeCarvedilol (Coreg) 25 mg tablet Discontinued 25 MG PO Twice daily 60 June 25, 2019 12:00am July 31, 2024 1:15pm must administer with a meal/foodclopidogrel 75 mg oral tablet (10 sources)P2Y12 Platelet InhibitorStart: 05-06-2019 End: 87-00-4881msjc 1 tablet by mouth once dailyClopidogrel 75 mg tablet Discontinued 75 MG PO Daily May 06, 2019 12:00am February 13, 2024 2:14pm ferrous sulfate 325 mg oral tablet (20 sources)Start: 03-14-2023 End: 14-39-7941fyuq 1 tablet by mouth once dailyFerrous Sulfate 325 mg (65 mg iron) tablet Discontinued 325 MG PO Daily January 26, 2024 12:00am July 31, 2024 1:16pmStart: 74-61-7279kcrb 1 tablet by mouth once daily at mealtimeFerrous Sulfate 325 (65 Fe) MG 1 tablet Orally Daily with food for 90 days March, Activefluticasone propionate 0.05 mg/actuat metered dose nasal spray (20 sources)CorticosteroidStart: 43-82-1365Yufnhhdpovh Propionate 50 MCG/ACT Nasal Suspension Quantity: 16 Refills: 0 Ordered: 15-Mar-2022 DO Start : 15-Mar-2022 Active End: 04-00-7525uboi 2 spray(s) nasal route once dailyfluticasone (Flonase) 50 mcg/actuation nasal spray Administer 2 sprays into each nostril once daily. 07/16/2024 Discontinued (Therapy completed)take 2 spray(s) nasal route twice dailyFluticasone Propionate 50 MCG/ACT INHALE 2 (TWO) sprays IN EACH NOSTRIL Nasal Twice a day Activetake 2 spray(s) nasal route twice dailyFluticasone Propionate 50 MCG/ACT INHALE 2 (TWO) sprays IN EACH NOSTRIL Nasal Twice a day ActiveFluticasone Propionate 50 MCG/ACT INHALE 2 (TWO) sprays IN EACH NOSTRIL ONCE DAILY Nasal Twice a day for 30 Days ActivemethylPREDNISolone (16 sources)CorticosteroidStart: 10-14-4906MPCQ-MEDROL UP TO 40 mg Jul, 80 mgnitroglycerin 0.4 mg sublingual tablet (20 sources)Nitrate VasodilatorStart: 06-25-2019 End: 44-22-6799Jmhsiusgyovoa (Nitrostat) 0.4 mg Tablet, Sublingual Discontinued 0.4 MG SUBLINGUAL every 5 to 15 minutes as needed for Chest Pain June 25, 2019 12:00am August 16, 2024 12:15pmNitroglycerin (NITROSTAT SL) Nitrostat ActiveNitrostat 0.4 MG 1 tab as directed Sublingual prn chest pain for 90 days ActivepredniSONE 20 mg oral tablet (9 sources)Start: 02-13-2024 End: 82-47-3834Wdhrqtwlqy 20 mg tablet Discontinued 0 PO daily February 13, 2024 12:00am March 15, 2024 1:36pm 1 p.o. 3 times daily x 3 days, then twice daily until gonespironolactone 25 mg oral tablet (10 sources)Aldosterone AntagonistStart: 04-07-2020 End: 52-16-3773Zuyimzuffhwlyw 25 mg tablet Discontinued 12.5 MG PO Daily April 07, 2020 12:00am February 13, 2024 2:17pmStart: 04-07-2020 End: 07-88-7232lwgg 12.5 mg by mouth once dailySpironolactone Discontinued 12.5 MG PO Daily April 07, 2020 12:00am February 13, 2024 2:17pmsulfamethoxazole 800 mg / trimethoprim 160 mg oral tablet (3 sources)Dihydrofolate Reductase Inhibitor Antibacterial, Sulfonamide AntimicrobialStart: 07-12-2022 End: 22-01-1342jobt 1 tablet by mouth twice dailySulfamethoxazole-Trimethoprim 800-160 MG Oral Tablet Take 1 tablet twice daily Quantity: 14 Refills: 0 Ordered: 12-Jul-2022 Ольга Brown MD Start : 12-Jul-2022 End : 19-Jul-2022 OvuuxpmeEq-25h-uwksazt RBCs (Ultratag) injection 25 millicurie (2 sources)Start: 01-09-2024 End: 84-37-8183Lg-99m-labeled RBCs (Ultratag) injection 25 millicurievalsartan 160 mg oral tablet (20 sources)Angiotensin 2 Receptor BlockerStart: 05-06-2019 End: 50-22-7712lozo 1 tablet by mouth once daily in the eveningValsartan 160 mg tablet Discontinued 160 MG PO Every evening June 21, 2019 12:00am April 07, 2020 3:30pm24 hr verapamil hydrochloride 240 mg extended release oral capsule (20 sources)Calcium Channel BlockerStart: 06-21-2019 End: 26-35-9260Emzdgzwtk 240 mg capsule,ext rel. pellets 24 hr Discontinued June 21, 2019 12:00am June 21, 2019 9:43amStart: 05-06-2019 End: 53-97-6553fkbc 1 capsule by mouth once dailyVerapamil 240 mg Capsule,Ext Rel. Pellets 24 Hr Discontinued 240 MG PO Daily May 06, 2019 12:00am June 25, 2019 11:29am Problems Active Problems Problem ClassificationProblemDateDocumented DateEpisodic/ChronicAbdominal hernia (20 sources)Hernia of anterior abdominal wall; Translations: [Ventral hernia without obstruction or gangrene]Onset: 03-14-2022 Resolved: 58-64-2835XvlrgfkyJuwocldvm pain (13 sources)Abdominal pain; Translations: [Unspecified abdominal pain]Episodic Acquired foot deformities (13 sources)Talipes planus; Translations: [Flat foot [pes planus] (acquired), right foot]EpisodicAcquired foot deformities (13 sources)Acquired pes planus of left foot; Translations: [Flat foot [pes planus] (acquired), left foot]EpisodicAcute bronchitis (1 source)Acute bronchitis, unspecified; Translations: [Acute bronchitis] 09-84-5909SuinolrjLopnxjrasekacd/social admission (2 sources)Other specified counselingOnset: 09-13-2021 Resolved: 66-62-6069HzwaszgcGhsthx (20 sources)Asthma; Translations: [Unspecified asthma, uncomplicated]Onset: 09-13-2021 Resolved: 02-24-8630LqohqkxSugdxgf dysrhythmias (13 sources)Cardiac arrhythmia; Translations: [Cardiac arrhythmia, unspecified] ChronicChronic obstructive pulmonary disease and bronchiectasis (20 sources)Chronic obstructive lung disease; Translations: [Chronic airway obstruction, not elsewhere classified]Onset: 871287-11-9902Sanhspl Conduction disorders (1 source)Atrioventricular block, first degree; Translations: [Atrioventricular block, first degree]Onset: 12-34-1661BxskycaUuvsiardto heart failure; nonhypertensive (20 sources)Congestive heart failure stage C; Translations: [Congestive heart failure, unspecified]Onset: 921336-37-0745EpkdqvyMjlbzvgw atherosclerosis and other heart disease (20 sources)Coronary atherosclerosis; Translations: [Coronary atherosclerosis of [place] coronary artery]Onset: 09-13-2021 Resolved: 23-26-2407PemaekcNbffpowq atherosclerosis and other heart disease (9 sources)Presence of aortocoronary bypass graft; Translations: [Coronary angioplasty status]Onset: 79-04-8874EgwtkzbbMnfcmtnrua and other anemia (4 sources)Nutritional anemia, unspecified; Translations: [NUTRITIONAL ANEMIA UNSPECIFIED]Onset: 03-14-2022 Resolved: 08-72-4611MmtoybohMqrtthyxny and other anemia (20 sources)Macrocytic anemia; Translations: [Nutritional anemia, unspecified] 01-58-8549KbdijztmGodcwaae mellitus with complications (4 sources)Peripheral neuropathy due to type 2 diabetes mellitus; Translations: [Type 2 diabetes mellitus withdiabetic polyneuropathy]08-81-6952JxxmlujWpqkooub mellitus without complication (20 sources)Type 2 diabetes mellitus without complication; Translations: [Type 2 diabetes mellitus without complications]Onset: 69-17-3130VtfttpvPrmsjtof mellitus without complication (20 sources)Impaired fasting glycemia; Translations: [Impaired fasting glucose] Onset: 09-13-2021 Resolved: 14-27-0179VlvdipdwEariwpmid of lipid metabolism (20 sources)Hyperlipidemia; Translations: [Other and unspecified hyperlipidemia] Onset: 09-13-2021 Resolved: 69-19-7629SgmxrqsCutmtdkufe disorders (20 sources)Acid reflux; Translations: [Gastro-esophageal reflux disease without esophagitis]Onset: 09-13-2021 Resolved: 32-82-4377GqaepbzLqmmsrbqk hypertension (20 sources)Essential hypertension; Translations: [Unspecified essential hypertension]Onset: 09-13-2021 Resolved: 05-94-5785XqopmnhFwtp and other crystal arthropathies (20 sources)Gout; Translations: [Gout, unspecified]Onset: 09-13-2021 Resolved: 36-34-5587HjsnusoCiojfdkrxlj (4 sources)External hemorrhoids; Translations: [Residual hemorrhoidal skin tags] 06-87-7746AekxxgqwFejhvsidgspz with complications and secondary hypertension (1 source)Hypertensive heart disease with heart failure; Translations: [Hypertensive heart disease with heartfailure]Onset: 39-18-8914GlfdqelYnzrafnmh of skin (20 sources)Malignant melanoma of back; Translations: [Malignant melanoma of skin of trunk, except scrotum]Onset: 41-60-4518EvunnthCknqqti on above:Excsion lesions face, back and chest esurgery Y5Brsogdzms of skin (3 sources)Personal history of malignant melanoma of skin; Translations: [History of malignant melanoma of theskin]Onset: 733565-78-2045Xvypnvet Miscellaneous mental health disorders (1 source)Psychophysiologic insomnia; Translations: [Insomnia, unspecified] 10-70-4980SnjphjaXiyeofa (16 sources)Tinea pedis; Translations: [Tinea pedis]42-97-2605ZmfyodzgOtprtvkfw of unspecified nature or uncertain behavior (4 sources)Neoplastic disease; Translations: [Neoplasm of unspecified behavior of bone, soft tissue, and skin]57-91-4940JoezwpsmInwgblgjbnjkz gastroenteritis (20 sources)Microscopic colitis; Translations: [Microscopic colitis, unspecified]07-70-0358PmfeqkvVyjwcenvkkpyf gastroenteritis (20 sources)Microscopic colitis; Translations: [Other specified noninfective gastroenteritis and colitis]Onset: 09-13-2021 Resolved: 40-67-5651QzsdxkinAsylblmnftp deficiencies (6 sources)Iron deficiency; Translations: [Iron deficiency anemia, unspecified] EpisodicOsteoarthritis (20 sources)Osteoarthritis of hip; Translations: [Osteoarthritis of hip, unspecified]Onset: 09-13-2021 Resolved: 14-07-3528ZkxkwkaNujfc aftercare (20 sources)Long-term current use of drug therapy; Translations: [Other usp (current) drug therapy]50-81-4658ZnvxdtwfPmjru aftercare (6 sources)Other terminal make up operator (current) drug therapy; Translations: [Other terminal make up operator (current) drug therapy]Onset: 09-13-2021 Resolved: 36-23-7553OmjlzemwRrotj aftercare (2 sources)Patient encounter status; Translations: [Other terminal make up operator (current) drug therapy]33-26-5216WyfcltkuFjdww aftercare (2 sources)Removal of sutures done; Translations: [Encounter for removal of sutures]48-06-1164XcjgynqrPxxrd and unspecified benign neoplasm (20 sources)History of polyp of colon; Translations: [Personal history of colonic polyps]EpisodicOther and unspecified benign neoplasm (2 sources)Personal history of colonic polypsEpisodicOther circulatory disease (2 sources)Spider nevus; Translations: [Nevus, non-neoplastic]34-70-5606Rslbzcjs Other connective tissue disease (13 sources)Calcaneal spur; Translations: [Calcaneal spur, left foot]Episodic Other connective tissue disease (2 sources)Inflammatory neuropathy ; Translations: [Neuralgia and neuritis, unspecified]92-60-2367KbvogqhcVihur connective tissue disease (2 sources)Pain in left foot; Translations: [Pain in left foot]06-20-2025 EpisodicOther diseases of kidney and ureters (20 sources)Renal impairment; Translations: [Unspecified disorder of kidney and ureter]Onset: 884730-47-4968GxwrbdalFrfhq diseases of kidney and ureters (20 sources)Renal insufficiency; Translations: [Disorder of kidney and ureter, unspecified]EpisodicOther diseases of kidney and ureters (8 sources)Disorder of kidney and ureter, unspecified; Translations: [DISORDER KIDNEY AND URETER UNS]Onset: 09-13-2021 Resolved: 39-20-2144OxlvxienJdkpo ear and sense organ disorders (20 sources)Presbycusis; Translations: [Presbycusis, bilateral]01-17-2024 EpisodicOther ear and sense organ disorders (3 sources)Presbycusis, bilateralOnset: 03-14-2022 Resolved: 35-82-7271YkkiuuviOnyyq gastrointestinal disorders (13 sources)Dysphagia; Translations: [Dysphagia, unspecified]EpisodicOther gastrointestinal disorders (20 sources)Diarrhea; Translations: [Diarrhea, unspecified]EpisodicOther gastrointestinal disorders (13 sources)Swollen abdomen; Translations: [Abdominal distension (gaseous)] EpisodicOther gastrointestinal disorders (3 sources)Diarrhea, unspecifiedOnset: 09-13-2021 Resolved: 08-61-6790CwxjocpcEranf gastrointestinal disorders (7 sources)Altered bowel function; Translations: [Change in bowel habit] 15-91-3748KkjjwcbsZwbjc gastrointestinal disorders (2 sources)Change in bowel habit; Translations: [Other symptoms involving digestive system]20-81-9493TxvxwlfbPhgev gastrointestinal disorders (1 source)Passing flatus; Translations: [Flatulence]85-96-1182IhasxwvgEmjdy lower respiratory disease (20 sources)Chronic cough; Translations: [Cough]96-75-7229CanfinhnWhczy lower respiratory disease (5 sources)CoughOnset: 09-13-2021 Resolved: 24-32-3207DcrnenjkZquth nervous system disorders (20 sources)Polyneuropathy; Translations: [Polyneuropathy, unspecified] 74-14-7452JizfnndCgjev nervous system disorders (13 sources)Carpal tunnel syndrome of right wrist; Translations: [Carpal tunnel syndrome, right upper limb]ChronicOther nervous system disorders (3 sources)Polyneuropathy, unspecified; Translations: [Unspecified hereditary and idiopathic peripheral neuropathy]ChronicOther nervous system disorders (2 sources)Neuropathy; Translations: [Hereditary and idiopathic neuropathy, unspecified]80-27-9194ObkgdjrFvuow non-epithelial cancer of skin (8 sources)History of malignant basal cell neoplasm of skin; Translations: [Personal history of other malignant neoplasm of skin]87-24-6400IboqrmmtPsgeb nutritional; endocrine; and metabolic disorders (1 source)Obesity, unspecified; Translations: [Obesity, unspecified]Onset: 67-44-3637OhphsivQusdi nutritional; endocrine; and metabolic disorders (1 source)Body mass index (BMI) 34.0-34.9, adult; Translations: [Body mass index [BMI] 34.0-34.9, adult]Onset: 75-85-7754YgiaxtnQnjrf nutritional; endocrine; and metabolic disorders (14 sources)Overweight in adulthood with body mass index of 25 or more but less than 30; Translations: [Overweight]EpisodicOther skin disorders (4 sources)Seborrheic keratosis; Translations: [Other seborrheic keratosis] 29-60-3381ChttzyyuHlalf skin disorders (4 sources)Actinic keratosis; Translations: [Actinic keratosis]02-11-2025 EpisodicOther skin disorders (2 sources)Lentigo simplex; Translations: [Other melanin hyperpigmentation] 95-26-5923HsuolfueDvenj skin disorders (2 sources)Inflamed seborrheic keratosis; Translations: [Inflamed seborrheic keratosis]13-83-2475PxrdrcttFsmzs skin disorders (2 sources)Lentiginosis; Translations: [Other melanin hyperpigmentation] 81-04-4905DrziutefFrihs upper respiratory disease (20 sources)Allergic rhinitis; Translations: [Allergic rhinitis, unspecified] 26-85-3844UxvjhmzJxwrd upper respiratory disease (5 sources)Allergic rhinitis, unspecifiedOnset: 03-15-2022 Resolved: 94-78-0910UndwzkvJtcst upper respiratory infections (1 source)Chronic sinusitis, unspecified; Translations: [Unspecified sinusitis (chronic)]19-84-7987HdeevdeZdlholdrsp and visceral atherosclerosis (20 sources)Intermittent claudication; Translations: [Peripheral vascular disease, unspecified]Onset: 313309-09-2338TlkyjwtGxqeocim codes; unclassified (1 source)No current problems or disability; Translations: [Other specified conditions influencing health status]Onset: 89-78-7565QeurcrgvTgsgxjnt codes; unclassified (1 source)Other general symptoms and signs; Translations: [Other general symptoms]59-01-5310MfyngglaVnsrycfk codes; unclassified (5 sources)Body mass index 20-24 - normal; Translations: [Body mass index (BMI) 24.0-24.9, adult]Onset: 790052-09-9302SvrgcylmTysbptlcunv injury; contusion (2 sources)Contusion of upper limb; Translations: [Contusion of unspecified upper arm, initial encounter]87-14-9188RtvmyzneGjkdizgofvff (1 source)Personal history of COVID-19; Translations: [Personal history of COVID-19]Onset: 36-59-0496Jlccdspqyzwr (1 source)Contact with and (suspected) exposure to COVID-19; Translations: [Contact with and (suspected) exposure to COVID-19]Onset: 07-05-2022 Past or Other Problems Problem ClassificationProblemDateDocumented DateEpisodic/ChronicBlindness and vision defects (5 sources)Blurring of visual image; Translations: [Other visual disturbances] Onset: 605252-88-9534FghopzuqLyafisb dysrhythmias (20 sources)Bradycardia; Translations: [Other specified cardiac dysrhythmias] Onset: 179612-69-7180RaybxqkmRpqdpxsjirhw of device; implant or graft (3 sources)Arteriosclerosis of coronary artery bypass graft; Translations: [Atherosclerosis of coronary arterybypass graft(s) without angina pectoris] Onset: 07-16-2024 Resolved: 598632-59-9540UylmlhlBuxsluwwvf associated with dizziness or vertigo (20 sources)Dizziness; Translations: [Dizziness and giddiness]Onset: 10-11-2023 23-69-7178UgqbygrbVdkubbyruluad symptoms and ill-defined conditions (1 source)Unspecified symptoms and signs involving the genitourinary system Onset: 09-13-2021 Resolved: 27-56-5675ObhtniovCmsis aftercare (1 source)Encounter for surgical aftercare following surgery on the skin and subcutaneous tissue; Translations: [Encntr for surgical aftcr fol surgery on the skin, subcu]Onset: 26-71-2887VbcewdqdCtsbn aftercare (1 source)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; Translations: [assisted (current) use of aspirin]Onset: 78-71-0657FvlsbnuuRigoi aftercare (1 source)assisted (current) use of antithrombotics/antiplatelets; Translations: [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) use ofantithrombotics/antiplatelets]Onset: 71-87-0142QrstqbelXraqo and unspecified benign neoplasm (11 sources)Dysplastic nevus of trunk; Translations: [Benign neoplasm of skin of trunk, except scrotum]Onset: 991146-53-8458TsdtxpwmYyutc and unspecified benign neoplasm (2 sources)Other benign neoplasm of skin of trunk; Translations: [Other benign neoplasm of skin of trunk]Onset: 28-90-7811PjhsqebsLuzrs circulatory disease (20 sources)Patient post angioplasty; Translations: [Other postprocedural status]Onset: 074537-28-1584JabmnykqFwdtb infections; including parasitic (20 sources)Personal history of other infectious and parasitic diseases; Translations: [Personal history of COVID-19]Onset: 110634-82-0778Cwffbdds Other nutritional; endocrine; and metabolic disorders (5 sources)Body mass index 25-29 - overweight; Translations: [Overweight]Onset: 04-02-2024 Resolved: 623822-65-7823GfghzxquBrzjypul codes; unclassified (4 sources)Intolerance to drug; Translations: [Other specified health status] Onset: 681926-55-5282YevmackgKyodypxm codes; unclassified (2 sources)Other specified health status; Translations: [Other specified health status]Onset: 52-17-7700SfuzfntxUgjurcld codes; unclassified (2 sources)Body mass index (BMI) 24.0-24.9, adult; Translations: [Body mass index (BMI) 24.0-24.9, adult]Onset: 33-82-9296TxufwryoUfwvnspgt and history of mental health and substance abuse codes (20 sources)Ex-smoker; Translations: [Personal history of tobacco use]Onset: 482721-15-5426ZraxdwxoExaklfd on above:QUIT IN THE S;Skin and subcutaneous tissue infections (15 sources)Cellulitis; Translations: [Cellulitis and abscess of unspecified sites]Onset: 489914-62-5890GkmkctalWdrmfynupbif (9 sources)Onset: 12-20-2023 Resolved: Results Test NameValueInterpretationReference RangeFacilityNo Panel Informationon 84-12-6706Cagb of biopsy: tangential Informed consent: discussed and consent obtained Informed consent comment: The risks and benefits of the biopsy were discussed. Risks include but are not limited to bleeding, infection, scarring, pain, and nerve damage. An opportunity to ask questions prior to the procedure was permitted and all questions were answered. Patient was prepped and draped in usual sterile fashion: area cleansed with alcohol. Anesthesia: the lesion was anesthetized in a standard fashion Anesthetic: 1% lidocaine w/ epinephrine 1-100,000 buffered w/ 8.4% NaHCO3 Instrument used: DermaBlade Hemostasis achieved with: electrodesiccation Outcome: patient tolerated procedure well Outcome comment: The specimen was placed in a prelabeled formalin container to be sent for pathology Post-procedure details: sterile dressing applied and wound care instructions given Post-procedure details comment: Emphasized need to contact clinic for any signs of infection, uncontrollable bleeding, or complications. Dressing type: bandage Additional details: Photo taken yes Amount of lidocaine used: 0.5 [facility]Type [facility] biopsy: tangential Informed consent: discussed and consent obtained Informed consent comment: The risks and benefits of the biopsy were discussed. Risks include but are not limited to bleeding, infection, scarring, pain, and nerve damage. An opportunity to ask questions prior to the procedure was permitted and all questions were answered. Patient was prepped and draped in usual sterile fashion: area cleansed with alcohol. Anesthesia: the lesion was anesthetized in a standard fashion Anesthetic: 1% lidocaine w/ epinephrine 1-100,000 buffered w/ 8.4% NaHCO3 Instrument used: DermaBlade Hemostasis achieved with: electrodesiccation Outcome: patient tolerated procedure well Outcome comment: The specimen was placed in a prelabeled formalin container to be sent for pathology Post-procedure details: sterile dressing applied and wound care instructions given Post-procedure details comment: Emphasized need to contact clinic for any signs of infection, uncontrollable bleeding, or complications. Dressing type: bandage Additional details: Photo taken yes Amount of lidocaine used: 0.5 [facility] HealthcareBasophils Auto (Bld) [#/Vol]Ordered By: Crescencio Mendez on 93-92-8721Wnqvffyey (Bld) [#/Vol]0.0 10 3/uL0.0-0.1FOhio State East HospitalBasophils/100 WBC Auto (Bld)Ordered By: Crescencio Mendez on 05-22-2025 Basophils/100 WBC (Bld)0.5 %0.2-2.0[facility] Eosinophils/100 WBC Auto (Bld)Ordered By: Crescencio Mendez on 05-22-2025 Eosinophils/100 WBC (Bld)1.4 %0.9-7.0[facility] Erythrocyte distribution width Auto (RBC) [Ratio]Ordered By: Crescencio Mendez on 60-23-2683Ykmgtnvovuh distribution width (RBC) [Ratio]13.9 %11.0-15.0[facility] HospitalHematocrit Auto (Bld) [Volume fraction]Ordered By: Crescencio Mendez on 63-01-2192Xcrccsrcvi (Bld) [Volume fraction]39.9 %Low42.0-54.0 [facility] HospitalHemoglobin [Mass/volume] in BloodOrdered By: Crescencio Mendez on 82-15-1594Jvyaivlvnh (Bld) [Mass/Vol]13.6 g/dLLow14.0-18.0 [facility] HospitalINR in Platelet poor plasma by Coagulation assayOrdered By: Crescencio Mendez on 34-13-0993JAH Coag (PPP) [Relative time]0.99 {INR}[facility] HospitalComment on above:DESIRED INR:2.0-3.0 CONDITIONS NOT LISTED BELOW2.5-3.5 FOR PROSTHETIC HEART VALVE REPLACEMENT2.5-3.5 RECURRENT THROMBOSISLaboratory - Hematology and Cell countsOrdered By: Crescencio Mendez on 49-39-3112Nstbvxey granulocytes/100 WBC (Bld)0.1 %0.0-0.5FOhio State East HospitalLeukocytes [#/volume] corrected for nucleated erythrocytes in Blood by Automated counOrdered By: Crescencio Mendez on 05-22-2025 WBC corrected for nucl RBC Auto (Bld) [#/Vol]8.4 10 3/uL4.0-11.0[facility] HospitalLymphocytes Auto (Bld) [#/Vol]Ordered By: Crescencio Mendez on 78-92-0375Aopyzdaqrzk (Bld) [#/Vol]2.5 10 3/uL1.2-3.8[facility] HospitalLymphocytes/100 WBC Auto (Bld)Ordered By: Crescencio Mendez on 37-33-8427Sixztgirbuy/100 WBC (Bld)29.6 %20.5-60.0[facility] Auto (RBC) [Entitic mass]Ordered By: Crescencio Mendez on 40-91-1024LSG (RBC) [Entitic mass]32.7 pg25.9-34.0[facility] HospitalMCHC Auto (RBC) [Mass/Vol]Ordered By: Crescencio Mendez on 56-93-2975SWMT (RBC) [Mass/Vol]34.1 g/dL29.9-35.2FOhio State East HospitalMCV Auto (RBC) [Entitic vol] Ordered By: Crescencio Mendez on 71-25-6756OQW (RBC) [Entitic vol]95.9 fLHigh 80.0-94.0[facility] HospitalMonocytes Auto (Bld) [#/Vol]Ordered By: Crescencio Mendez on 56-71-6839Tducizvrc (Bld) [#/Vol]0.5 10 3/uL0.3-0.8 [facility] HospitalMonocytes/100 WBC Auto (Bld)Ordered By: Crescencio Mendez on 52-40-8592Svilgddjf/100 WBC (Bld)6.3 %1.7-12.0[facility] HospitalNeutrophils Auto (Bld) [#/Vol]Ordered By: Crescencio Mendez on 86-28-0058Rhewxkookzr (Bld) [#/Vol]5.2 10 3/uL1.4-6.5FOhio State East HospitalNeutrophils/100 WBC Auto (Bld)Ordered By: Crescencio Mendez on 05-22-2025 Neutrophils/100 WBC (Bld)62.1 %43.0-75.0[facility] HospitalNo Panel InformationOrdered By: Crescencio Mendez on 70-97-8482Jqenccarirk # (Auto)0.1 10 3/uL0.0-0.7FOhio State East HospitalImmature Granulocyte # (Auto)0.01 10 3/uL0.00-0.03[facility] HospitalPlatelet mean volume Auto (Bld) [Entitic vol]Ordered By: Crescencio Mendez on 16-32-2759Tzyjahvx mean volume (Bld) [Entitic vol]10.0 fL9.5-13.5FOhio State East HospitalPlatelets Auto (Bld) [#/Vol]Ordered By: Crescencio Mendez on 60-23-1376Qataxfnmz (Bld) [#/Vol] 199 10 3/kC269-929QwbawacwkMercy Health Willard HospitalProthrombin time (PT)Ordered By: Crescencio Mendez on 26-78-6382WD Coag (PPP) [Time]10.5 s9.0-11.6FOhio State East HospitalRBC Auto (Bld) [#/Vol]Ordered By: Crescencio Mendez on 45-46-1655VTF (Bld) [#/Vol]4.16 10 6/uLLow4.70-6.10[facility] HospitalNo Panel Informationon 27-03-2605Nznryungcb: Intermediate Final length (cm): 5.8 Reason for [...] infection, uncontrollable bleeding, or complications. Dressing type: bandRiver Falls Area HospitalLesion length (cm): 0.5 Lesion width (cm): 0.4 [...] 16.0 ml Estimated blood loss: < 1.0 [facility] CityBasophils Auto (Bld) [#/Vol]on 56-67-1280Goxjkowhv (Bld) [#/Vol]Automated basophil count0.0-0.1 [facility] HospitalBasophils (Bld) [#/Vol]0.0 10 3/uL0.0-0.1 [facility] HospitalBasophils/100 WBC Auto (Bld)on 02-19-2025 Basophils/100 WBC (Bld)Automated basophil %Low0.2-2.0[facility] HospitalBasophils/100 WBC (Bld)0.1 %Low0.2-2.0[facility] Cholesterol in LDL Calc [Mass/Vol]on 76-13-7393Sbatcfkgeko in LDL [Mass/Vol] Cholesterol in LDL [Mass/volume] in Serum or Plasma by calculationMercy Health Willard HospitalComment on above:<100 mg/dl WCVFLRR605-055 mg/dl NEAR OR ABOVE TAUIZEB148-044 mg/dl BORDERLINE PFLA079-032 mg/dl HIGH>190 mg/dl VERY HIGH Cholesterol in LDL [Mass/Vol]40.6 mg/dLMercy Health Willard HospitalComment on above:<100 mg/dl FWTWKVP468-844 mg/dl NEAR OR ABOVE BYDNUPV300-788 mg/dl BORDERLINE JGOM595-043 mg/dl HIGH>190 mg/dl VERY HIGHCholesterol in VLDL Calc [Mass/Vol]on 15-82-2983Mxksbcoawcv in VLDL [Mass/Vol]Cholesterol in VLDL [Mass/volume] in Serum or Plasma by calculationMercy Health Willard Hospital Cholesterol in VLDL [Mass/Vol]11.4 mg/dLMercy Health Willard Hospital Eosinophils/100 WBC Auto (Bld)on 14-53-7485Ldmzvxzagos/100 WBC (Bld)Automated eosinophil %Low0.9-7.0[facility] HospitalEosinophils/100 WBC (Bld) 0.2 %Low0.9-7.0[facility] HospitalErythrocyte distribution width Auto (RBC) [Ratio]on 37-42-7793Phlnpavhofp distribution width (RBC) [Ratio] Erythrocyte distribution width [Ratio] by Automated count11.0-15.0[facility] HospitalErythrocyte distribution width (RBC) [Ratio]13.2 % 11.0-15.0[facility] HospitalEstimated glomerular filtration rate (GFR) non- Americanon 42-75-7209GSI/1.73 sq M.predicted among non-blacks MDRD (S/P/Bld) [Vol rate/Area]Estimated glomerular filtration rate (GFR) non- AmericanLow>=60 mL/min/1.[address]m [address] [place], [place] [address]GFR/1.73 sq M.predicted among non-blacks MDRD (S/P/Bld) [Vol rate/Area]40 mL/min/{1.73_m2}Low>=60 mL/min/1.[address]m [address] [place], [place] [address]Globulin Calc (S) [Mass/Vol]on 89-68-5661Owhfdklv (S) [Mass/Vol]Serum globulin measurement by calculation (mass/volume)[facility] Globulin (S) [Mass/Vol]3.3 g/dLMercy Health Willard HospitalGlucose mean value [Mass/volume] in Blood Estimated from glycated hemoglobinon 02-19-2025 Average glucose Estimated from glycated hemoglobin (Bld) [Mass/Vol]Glucose mean value [Mass/volume] in Blood Estimated from glycated hemoglobinMercy Health Willard HospitalAverage glucose Estimated from glycated hemoglobin (Bld) [Mass/Vol]137 mg/dLMercy Health Willard HospitalHematocrit Auto (Bld) [Volume fraction]on 99-74-1087Ummhpeafwr (Bld) [Volume fraction]Hematocrit [Volume Fraction] of Blood by Automated gvmhqHum98.0-54.0[facility] HospitalHematocrit (Bld) [Volume fraction]38.0 %Low42.0-54.0[facility] HospitalHemoglobin A1c percentageon 19-87-1299UhH1y (Bld) [Mass fraction]Hemoglobin A1c percentageHigh4.5-6.2FOhio State East Hospital Comment on above:ADA RECOMMENDED LIMIT 4.0 - 6.0ADA THERAPEUTIC TARGET < 7.0ACTION SUGGESTED> 7.0HbA1c (Bld) [Mass fraction]6.4 %High4.5-6.2FOhio State East HospitalComment on above:ADA RECOMMENDED LIMIT 4.0 - 6.0ADA THERAPEUTIC TARGET < 7.0ACTION SUGGESTED> 7.0Hemoglobin [Mass/volume] in Bloodon 96-89-3912Fitymnshdp (Bld) [Mass/Vol]Hemoglobin [Mass/volume] in BloodLow 14.0-18.0[facility] HospitalHemoglobin (Bld) [Mass/Vol]12.6 g/dL Low14.0-18.0[facility] HospitalLaboratory - Chemistry and Chemistry - challengeon 36-45-1214Mfbfqtc [Mass/Vol]3.5 g/dL3.4-5.0[facility] HospitalALP [Catalytic activity/Vol]86 U/M39-499MuchapgxpMercy Health Willard HospitalALT [Catalytic activity/Vol]17 U/F94-35YuidsffjoMercy Health Willard HospitalAST [Catalytic activity/Vol]14 U/NOsf93-80VipzcxxsyMercy Health Willard HospitalBilirubin [Mass/Vol]0.4 mg/dL0.2-1.0[facility] HospitalBilirubin.direct [Mass/Vol]0.1 mg/dL0.0-0.2FOhio State East HospitalCalcium [Mass/Vol]9.1 mg/dL8.5-10.1FOhio State East Hospital Chloride [Moles/Vol]106 mmol/Q39-240UhzzrlazwMercy Health Willard HospitalCholesterol [Mass/Vol]112 mg/dL<=200[facility] HospitalCholesterol in HDL [Mass/Vol]60 mg/bV85-37XaiwifqmdMercy Health Willard HospitalComment on above:> or =60 mg/dl - LOW CARDIOVASCULAR RISK<40 mg/dl - HIGH CARDIOVASCULAR RISKCO2 [Moles/Vol]29.8 mmol/L21.0-32.0[facility] HospitalCobalamin (Vitamin B12) [Mass/Vol]410 pg/uZ734-4673DmjraxkihMercy Health Willard Hospital Comment on above:Performed at: - [facility] [id number] Director: Fortunato Ortega PhD, Phone: [phone] [Mass/Vol]1.68 mg/dLHigh0.70-1.30[facility] HospitalGFR/1.73 sq M.predicted MDRD (S/P/Bld) [Vol rate/Area]48 mL/min/{1.73_m2}Low>=60 mL/min/1.73m 2FOhio State East HospitalGlucose [Mass/Vol]115 mg/dLHigh 74-106Mer[facility] HospitalPotassium [Moles/Vol]4.0 mmol/L3.5-5.1 [facility] HospitalProtein [Mass/Vol]6.8 g/dL6.4-8.2FFirelands Regional Medical Centerodium [Moles/Vol]141 mmol/G243-646DekuvybpjMercy Health Willard HospitalTriglyceride [Mass/Vol]57 mg/dL<=150Mer[facility] HospitalUrate [Mass/Vol]4.3 mg/dL3.5-7.2FOhio State East HospitalUrea nitrogen [Mass/Vol]25.0 mg/dLHigh7.0-18.0[facility] HospitalUrea nitrogen/Creatinine [Mass ratio]14.9 mg/mgMercy Health Willard Hospital Laboratory - Hematology and Cell countson 02-82-9659Bzkcxwuo granulocytes/100 WBC (Bld)0.3 %0.0-0.5FOhio State East HospitalLeukocytes [#/volume] corrected for nucleated erythrocytes in Blood by Automated counon 35-45-7670DXN corrected for nucl RBC Auto (Bld) [#/Vol]Leukocytes [#/volume] corrected for nucleated erythrocytes in Blood by Automated counHigh4.0-11.0[facility] HospitalWBC corrected for nucl RBC Auto (Bld) [#/Vol]11.1 10 3/uLHigh 4.0-11.0[facility] HospitalLymphocytes Auto (Bld) [#/Vol]on 64-64-4059Frbnakxivrr (Bld) [#/Vol]Lymphocytes [#/volume] in Blood by Automated count1.2-3.8[facility] HospitalLymphocytes (Bld) [#/Vol]2.0 10 3/uL1.2-3.8[facility] HospitalLymphocytes/100 WBC Auto (Bld)on 89-03-9632Pmexcevdore/100 WBC (Bld)Lymphocytes/100 leukocytes in Blood by Automated qqixfMrf16.5-60.0[facility] HospitalLymphocytes/100 WBC (Bld)18.0 %Low20.5-60.0[facility] Auto (RBC) [Entitic mass]on 30-14-5103FRO (RBC) [Entitic mass]MCH [Entitic mass] by Automated count 25.9-34.0[facility] (RBC) [Entitic mass]31.7 pg 25.9-34.0[facility] Auto (RBC) [Mass/Vol]on 52-25-5167XIMG (RBC) [Mass/Vol]MCHC [Mass/volume] by Automated count29.9-35.2 [facility] HospitalHC (RBC) [Mass/Vol]33.2 g/dL29.9-35.2 [facility] HospitalV Auto (RBC) [Entitic vol]on 04-02-1819XHH (RBC) [Entitic vol]MCV [Entitic volume] by Automated mlsftWrbz50.0-94.0[facility] HospitalV (RBC) [Entitic vol]95.7 uXSlqv73.0-94.0[facility] HospitalMonocytes Auto (Bld) [#/Vol]on 05-61-2604Bgvhwnziw (Bld) [#/Vol]Automated blood monocyte count0.3-0.8[facility] Monocytes (Bld) [#/Vol]0.5 10 3/uL0.3-0.8[facility] Monocytes/100 WBC Auto (Bld)on 33-56-9775Wwussxbor/100 WBC (Bld)Automated monocyte %1.7-12.0[facility] HospitalMonocytes/100 WBC (Bld)4.4 % 1.7-12.0[facility] HospitalNeutrophils Auto (Bld) [#/Vol]on 16-94-3770Dhectvbkmby (Bld) [#/Vol]Neutrophils [#/volume] in Blood by Automated countHigh1.4-6.5FOhio State East HospitalNeutrophils (Bld) [#/Vol]8.5 10 3/uLHigh1.4-6.5FOhio State East HospitalNeutrophils/100 WBC Auto (Bld) on 99-07-8858Wzipwwfmapl/100 WBC (Bld)Automated neutrophil %High43.0-75.0 [facility] HospitalNeutrophils/100 WBC (Bld)77.0 %High43.0-75.0 [facility] HospitalNo Panel Informationon 08-86-3302Iyzdoiwzdud # (Auto)0.0 10 3/uL0.0-0.7FOhio State East HospitalFolate15.10 ng/mL 8.60-58.90[facility] HospitalImmature Granulocyte # (Auto)0.03 10 3/uL0.00-0.03[facility] HospitalPlatelet mean volume Auto (Bld) [Entitic vol]on 42-51-1467Jryuljlm mean volume (Bld) [Entitic vol]Platelet mean volume [Entitic volume] in Blood by Automated count9.5-13.5FOhio State East HospitalPlatelet mean volume (Bld) [Entitic vol]10.3 fL9.5-13.5FOhio State East HospitalPlatelets Auto (Bld) [#/Vol]on 80-32-5823Rkkkgifcn (Bld) [#/Vol]Platelets [#/volume] in Blood by Automated -756XatteluptMercy Health Willard HospitalPlatelets (Bld) [#/Vol]249 10 3/pZ727-750HsyzofmcyMercy Health Willard HospitalRBC Auto (Bld) [#/Vol]on 32-17-9022CID (Bld) [#/Vol]Erythrocytes [#/volume] in Blood by Automated countLow4.70-6.10[facility] HospitalRBC (Bld) [#/Vol]3.97 10 6/uLLow4.70-6.10[facility] Serum or plasma albumin/globulin mass ratioon 81-04-3147Smmvvwc/Globulin [Mass ratio]Serum or plasma albumin/globulin mass ratioMercy Health Willard HospitalAlbumin/Globulin [Mass ratio]1.1 {ratio}[facility] Serum or plasma anion gap determinationon 36-92-9338Lpiec gap [Moles/Vol]Serum or plasma anion gap determinationMercy Health Willard HospitalAnion gap [Moles/Vol]9.2 mmol/LFFirelands Regional Medical Centererum or plasma total cholesterol/high density lipoprotein (HDL) cholesterol mass sajan 02-19-2025 Cholesterol.total/Cholesterol in HDL [Mass ratio]Serum or plasma total cholesterol/high density lipoprotein (HDL) cholesterol mass [facility] HospitalComment on above:3.3 - 4.4 LOW RISK4.4 - 7.1 AVERAGE RISK7.1 - 11.0 MODERATE RISK>11.0 HIGH RISKCholesterol.total/Cholesterol in HDL [Mass ratio]1.9 {ratio}[facility] HospitalComment on above:3.3 - 4.4 LOW RISK4.4 - 7.1 AVERAGE RISK7.1 - 11.0 MODERATE RISK>11.0 HIGH RISKNo Panel Informationon 56-54-6577Mloy of biopsy: tangential Informed consent: discussed and consent obtained Informed consent comment: The risks and benefits of the biopsy were discussed. Risks include but are not limited to bleeding, infection, scarring, pain, and nerve damage. An opportunity to ask questions prior to the procedure was permitted and all questions were answered. Patient was prepped and draped in usual sterile fashion: area cleansed with alcohol. Anesthesia: the lesion was anesthetized in a standard fashion Anesthetic: 1% lidocaine w/ epinephrine 1-100,000 buffered w/ 8.4% NaHCO3 Instrument used: DermaBlade Hemostasis achieved with: electrodesiccation Outcome: patient tolerated procedure well Outcome comment: The specimen was placed in a prelabeled formalin container to be sent for pathology Post-procedure details: sterile dressing applied and wound care instructions given Post-procedure details comment: Emphasized need to contact clinic for any signs of infection, uncontrollable bleeding, or complications. Dressing type: bandage Additional details: Photo taken Amount of lidocaine used: 0.5 [facility] Basophils Auto (Bld) [#/Vol]on 46-39-8815Jrebmqqmj (Bld) [#/Vol]Automated basophil count0.0-0.1FOhio State East HospitalBasophils/100 WBC Auto (Bld)on 55-44-7161Oitylkkpq/100 WBC (Bld)Automated basophil %Low0.2-2.0[facility] CenterCholesterol in LDL Calc [Mass/Vol]on 09-24-2024 Cholesterol in LDL [Mass/Vol]Cholesterol in LDL [Mass/volume] in Serum or Plasma by calculationMercy Health Willard HospitalComment on above:<100 mg/dl THNTPDX349-153 mg/dl NEAR OR ABOVE STHWPSC347-571 mg/dl BORDERLINE XWQZ472-225 mg/dl HIGH>190 mg/dl VERY HIGHCholesterol in VLDL Calc [Mass/Vol]on 09-24-2024 Cholesterol in VLDL [Mass/Vol]Cholesterol in VLDL [Mass/volume] in Serum or Plasma by calculationMercy Health Willard HospitalEosinophils/100 WBC Auto (Bld)on 79-54-4306Cblufzyakrj/100 WBC (Bld)Automated eosinophil %Low0.9-7.0 [facility] HospitalErythrocyte distribution width Auto (RBC) [Ratio]on 79-21-9690Kgomnhezhru distribution width (RBC) [Ratio]Erythrocyte distribution width [Ratio] by Automated count11.0-15.0[facility]ard HospitalEstimated glomerular filtration rate (GFR) non- Americanon 99-84-3083ZJO/1.73 sq M.predicted among non-blacks MDRD (S/P/Bld) [Vol rate/Area]Estimated glomerular filtration rate (GFR) non- AmericanLow>=60 mL/min/1.73m 2FOhio State East HospitalGlobulin Calc (S) [Mass/Vol]on 78-92-1346Klcluvej (S) [Mass/Vol]Serum globulin measurement by calculation (mass/volume)[facility] HospitalGlucose mean value [Mass/volume] in Blood Estimated from glycated hemoglobinon 29-80-3493Btdamid glucose Estimated from glycated hemoglobin (Bld) [Mass/Vol]Glucose mean value [Mass/volume] in Blood Estimated from glycated hemoglobinMercy Health Willard HospitalHematocrit Auto (Bld) [Volume fraction]on 47-00-0825Utrsgvexjq (Bld) [Volume fraction]Hematocrit [Volume Fraction] of Blood by Automated count Low42.0-54.0[facility] HospitalHemoglobin [Mass/volume] in Bloodon 80-68-4041Wimqoyaeup (Bld) [Mass/Vol]Hemoglobin [Mass/volume] in BloodLow 14.0-18.0[facility] HospitalIron binding capacity [Mass/volume] in Serum or Plasmaon 28-00-0532Osqn binding capacity [Mass/Vol]Iron binding capacity [Mass/volume] in Serum or Rbqeuk685.0-450.0[facility] HospitalIron saturation [Mass Fraction] in Serum or Plasmaon 43-05-5284Rexx saturation [Mass fraction]Iron saturation [Mass Fraction] in Serum or Plasma [facility] HospitalLaboratory - Chemistry and Chemistry - challengeon 51-28-9571Wgsngyk [Mass/Vol]3.5 g/dL3.4-5.0[facility] HospitalALP [Catalytic activity/Vol]85 U/S65-181JgiqsrvxlMercy Health Willard HospitalALT [Catalytic activity/Vol]19 U/T02-14YtmddldexMercy Health Willard Hospital AST [Catalytic activity/Vol]13 U/KOkm42-90XfgtuebesMercy Health Willard Hospital Bilirubin [Mass/Vol]0.8 mg/dL0.2-1.0[facility] Bilirubin.direct [Mass/Vol]0.2 mg/dL0.0-0.2FOhio State East Hospital Calcium [Mass/Vol]9.4 mg/dL8.5-10.1FOhio State East HospitalChloride [Moles/Vol]106 mmol/F95-842RlnewmdtzMercy Health Willard HospitalCholesterol [Mass/Vol]140 mg/dL<=200[facility] HospitalCholesterol in HDL [Mass/Vol]80 mg/mFWmnx51-14EorpdfcuqMercy Health Willard HospitalComment on above:> or =60 mg/dl - LOW CARDIOVASCULAR RISK<40 mg/dl - HIGH CARDIOVASCULAR RISKCO2 [Moles/Vol]29.0 mmol/L21.0-32.0[facility] HospitalCreatinine [Mass/Vol]1.67 mg/dLHigh0.70-1.30[facility] HospitalFerritin [Mass/Vol]151.0 ng/mL26.0-388.0[facility] HospitalGFR/1.73 sq M.predicted MDRD (S/P/Bld) [Vol rate/Area]48 mL/min/{1.73_m2}Low>=60 mL/min/1.73m 2FOhio State East HospitalGlucose [Mass/Vol]115 mg/dLHigh 74-106Mer[facility] HospitalIron [Mass/Vol]98.0 ug/dL65.0-175.0 [facility] HospitalPotassium [Moles/Vol]3.9 mmol/L3.5-5.1FOhio State East HospitalProtein [Mass/Vol]6.4 g/dL6.4-8.2FFirelands Regional Medical Centerodium [Moles/Vol]143 mmol/H609-218IqunzogavMercy Health Willard HospitalT4 [Mass/Vol]8.20 ug/dL4.50-12.10[facility] Triglyceride [Mass/Vol]58 mg/dL<=150[facility] HospitalUrea nitrogen [Mass/Vol]25.0 mg/dLHigh7.0-18.0[facility] HospitalUrea nitrogen/Creatinine [Mass ratio]15.0 mg/mgMercy Health Willard Hospital Laboratory - Hematology and Cell countson 03-17-3946LwQ7a (Bld) [Mass fraction] 6.2 %4.5-6.2FOhio State East HospitalComment on above:ADA RECOMMENDED LIMIT 4.0 - 6.0ADA THERAPEUTIC TARGET < 7.0ACTION SUGGESTED> 7.0Immature granulocytes/100 WBC (Bld)0.2 %0.0-0.5FOhio State East Hospital Leukocytes [#/volume] corrected for nucleated erythrocytes in Blood by Automated counon 66-49-1667SAW corrected for nucl RBC Auto (Bld) [#/Vol]Leukocytes [#/volume] corrected for nucleated erythrocytes in Blood by Automated coun 4.0-11.0[facility] HospitalLymphocytes Auto (Bld) [#/Vol]on 71-43-7959Tfbpflbjfuu (Bld) [#/Vol]Lymphocytes [#/volume] in Blood by Automated count1.2-3.8[facility] HospitalLymphocytes/100 WBC Auto (Bld)on 40-66-6104Hvctitbbmap/100 WBC (Bld)Lymphocytes/100 leukocytes in Blood by Automated count20.5-60.0[facility] HospitalMCH Auto (RBC) [Entitic mass]on 10-78-1822XEI (RBC) [Entitic mass]MCH [Entitic mass] by Automated count 25.9-34.0[facility] HospitalMCHC Auto (RBC) [Mass/Vol]on 94-77-5819GAPL (RBC) [Mass/Vol]MCHC [Mass/volume] by Automated count29.9-35.2 [facility] HospitalMCV Auto (RBC) [Entitic vol]on 26-48-0901HKR (RBC) [Entitic vol]MCV [Entitic volume] by Automated ansyiPhgu12.0-94.0[facility] HospitalMonocytes Auto (Bld) [#/Vol]on 25-15-3501Ivxkmtlmj (Bld) [#/Vol]Automated blood monocyte count0.3-0.8[facility] Monocytes/100 WBC Auto (Bld)on 38-97-0835Ckymiymbg/100 WBC (Bld)Automated monocyte %1.7-12.0[facility] HospitalNeutrophils Auto (Bld) [#/Vol]on 97-71-1602Qkpoayfbbkq (Bld) [#/Vol]Neutrophils [#/volume] in Blood by Automated countHigh1.4-6.5FOhio State East HospitalNeutrophils/100 WBC Auto (Bld)on 09-72-4358Dcmxdeezxae/100 WBC (Bld)Automated neutrophil %43.0-75.0 [facility] HospitalNo Panel Informationon 53-77-4940Popppyijvjp # (Auto)0.1 10 3/uL0.0-0.7FOhio State East HospitalImmature Granulocyte # (Auto)0.02 10 3/uL0.00-0.03[facility] HospitalPlatelet mean volume Auto (Bld) [Entitic vol]on 54-69-3067Tcqmrubf mean volume (Bld) [Entitic vol] Platelet mean volume [Entitic volume] in Blood by Automated count9.5-13.5 [facility] HospitalPlatelets Auto (Bld) [#/Vol]on 09-24-2024 Platelets (Bld) [#/Vol]Platelets [#/volume] in Blood by Automated ulnfi201-946 [facility] HospitalRBC Auto (Bld) [#/Vol]on 52-56-2576SMF (Bld) [#/Vol]Erythrocytes [#/volume] in Blood by Automated countLow4.70-6.10[facility] Campuserum or plasma albumin/globulin mass ratioon 09-24-2024 Albumin/Globulin [Mass ratio]Serum or plasma albumin/globulin mass ratio [facility] Campuserum or plasma anion gap determinationon 25-98-9585Esmsg gap [Moles/Vol]Serum or plasma anion gap determinationKettering Health Main Campuserum or plasma total cholesterol/high density lipoprotein (HDL) cholesterol mass sajan 60-59-8027Zzlyoompxwz.total/Cholesterol in HDL [Mass ratio]Serum or plasma total cholesterol/high density lipoprotein (HDL) cholesterol mass [facility] HospitalComment on above:3.3 - 4.4 LOW RISK4.4 - 7.1 AVERAGE RISK7.1 - 11.0 MODERATE RISK>11.0 HIGH RISKNo Panel InformationOrdered By: Crescencio Mendez on 92-32-7950Cttqxbexaujer Pathology TestSee commentMercy Health Willard HospitalComment on above:See report. Scanned copy available in EMR.Pathology Request for Lab Corpon 08-26-2024 Pathology Request for Lab CorpNoIredell Memorial Hospital Physician GroupComment on above:Order Comment: PATHOLOGY GI SPECIMENResult Comment: See report. Scanned copy available in EMR. PERFORMED BY: [place] [address] PATHOLOGIST DIRECTOR CHANNEL JUDY ROMERO M.D.Performed By: #### PATH TO [facility] #### [place] [address] USAVAS US CAROTID ARTERY DUPLEX BILATERALon 68-14-3581PXUF US CAROTID ARTERY DUPLEX BILATERALNorth [address], Suite [facility], [place] [address] Vascular Lab Report VASC US CAROTID ARTERY DUPLEX BILATERAL Patient Name: JUNIOR TORRES Reading Physician: [id number] Jimmie Arellano MD, [facility] Study Date: 08/20/2024 Ordering Provider: [id number] BUD BEATTY MRN/PID: [id number] Fellow: Technologist: Jana Aguiar RDCS, RVT Date of /Age: 705/14/1945 / 79 years Technologist 2: Gender: M Admission Status: Outpatient Location Performed: [facility] Diagnosis/ICD: Dizziness and giddiness-R42 Indication: CAD, HTN, Hyperlipidemia, Former Smoker, CABG, Ischemic Cardiomyopathy, COPD, CHF, PTCA, Overweight, Renal Insufficiency CPT Codes: 88848 Cerebrovascular Carotid Duplex scan complete CONCLUSIONS: Right [...] Left external carotid artery appears patent with noevidence of stenosis. No evidence of hemodynamically significant [...] cm/s Right Left ICA/CCA Ratio 1.0 0.7 [id number] Jimmie Arellano MD, FACC Final [facility] HealthBasophils Auto (Bld) [#/Vol]on 84-86-2338Cinawgqkp (Bld) [#/Vol]0.0 10 3/uL0.0-0.1FOhio State East HospitalBasophils/100 WBC Auto (Bld)on 76-86-8856Jqcylqtqs/100 WBC (Bld) 0.2 %0.2-2.0[facility] HospitalCholesterol in LDL Calc [Mass/Vol] on 71-63-2656Inrhqdrpuig in LDL [Mass/Vol]55.0 mg/dLMercy Health Willard HospitalComment on above:<100 mg/dl PCESGLK099-111 mg/dl NEAR OR ABOVE ILHHBOD947- 159 mg/dl BORDERLINE FUQJ385-067 mg/dl HIGH>190 mg/dl VERY HIGHCholesterol in VLDL Calc [Mass/Vol]on 53-36-0685Lvvjmjiltbc in VLDL [Mass/Vol]24.0 mg/dL [facility] HospitalEosinophils/100 WBC Auto (Bld)on 02-29-2024 Eosinophils/100 WBC (Bld)1.2 %0.9-7.0[facility] Erythrocyte distribution width Auto (RBC) [Ratio]on 34-43-6401Vvzjtgxuyov distribution width (RBC) [Ratio]13.4 %11.0-15.0[facility] Estimated glomerular filtration rate (GFR) non- Americanon 02-29-2024 GFR/1.73 sq M.predicted among non-blacks MDRD (S/P/Bld) [Vol rate/Area]41 mL/min/{1.73_m2}>=60Mer[facility] HospitalGlobulin Calc (S) [Mass/Vol]on 84-18-3888Girrqblf (S) [Mass/Vol]3.2 g/dLMercy Health Willard HospitalGlucose mean value [Mass/volume] in Blood Estimated from glycated hemoglobinon 36-90-1895Nqqsdpl glucose Estimated from glycated hemoglobin (Bld) [Mass/Vol]146 mg/dLMercy Health Willard HospitalHematocrit Auto (Bld) [Volume fraction]on 61-53-0284Ukwagyhnlh (Bld) [Volume fraction]40.6 %42.0-54.0 [facility] HospitalHemoglobin [Mass/volume] in Bloodon 02-29-2024 Hemoglobin (Bld) [Mass/Vol]13.0 g/dL14.0-18.0[facility] Laboratory - Chemistry and Chemistry - challengeon 27-01-2114Nuxcahn [Mass/Vol] 3.1 g/dL3.4-5.0[facility] HospitalALP [Catalytic activity/Vol]87 U/O37-680CscebspalMercy Health Willard HospitalALT [Catalytic activity/Vol]28 U/L 16-63[facility] HospitalAST [Catalytic activity/Vol]20 U/L15-37 [facility] HospitalBilirubin [Mass/Vol]0.7 mg/dL0.2-1.0[facility] HospitalBilirubin.direct [Mass/Vol]0.1 mg/dL0.0-0.2FOhio State East HospitalCalcium [Mass/Vol]9.2 mg/dL8.5-10.1FOhio State East HospitalChloride [Moles/Vol]105 mmol/Z22-357GzmixdyocMercy Health Willard HospitalCholesterol [Mass/Vol]136 mg/dL<=200[facility] Cholesterol in HDL [Mass/Vol]57 mg/zF08-79HhpdpokpxMercy Health Willard Hospital Comment on above:> or =60 mg/dl - LOW CARDIOVASCULAR RISK<40 mg/dl - HIGH CARDIOVASCULAR RISKCO2 [Moles/Vol]29.5 mmol/L21.0-32.0[facility] HospitalCobalamin (Vitamin B12) [Mass/Vol]394.0 pg/mL193.0-986.0[facility] HospitalCreatinine [Mass/Vol]1.62 mg/dL0.70-1.30[facility] HospitalFerritin [Mass/Vol]205.0 ng/mL26.0-388.0[facility] HospitalGFR/1.73 sq M.predicted MDRD (S/P/Bld) [Vol rate/Area]50 mL/min/{1.73_m2}>=60[facility] HospitalGlucose [Mass/Vol]96 mg/dL 74-106Firelands Regional Medical CenterIron [Mass/Vol]57.0 ug/dL65.0-175.0 [facility] HospitalPotassium [Moles/Vol]4.2 mmol/L3.5-5.1FOhio State East HospitalProtein [Mass/Vol]6.3 g/dL6.4-8.2FFirelands Regional Medical Centerodium [Moles/Vol]142 mmol/P845-048VytkwgthvMercy Health Willard HospitalT4 [Mass/Vol]7.20 ug/dL4.50-12.10[facility] Triglyceride [Mass/Vol]120 mg/dL<=150Mer[facility] HospitalTSH Qn 3.785 m[IU]/L0.358-3.740Mer[facility] HospitalUrea nitrogen [Mass/Vol]20.0 mg/dL7.0-18.0[facility] HospitalUrea nitrogen/Creatinine [Mass ratio]12.3 mg/mgMercy Health Willard Hospital Laboratory - Hematology and Cell countson 12-49-2509YsH1v (Bld) [Mass fraction] 6.7 %4.5-6.2FOhio State East HospitalComment on above:ADA RECOMMENDED LIMIT 4.0 - 6.0ADA THERAPEUTIC TARGET < 7.0ACTION SUGGESTED> 7.0Immature granulocytes/100 WBC (Bld)0.2 %0.0-0.5FOhio State East Hospital Leukocytes [#/volume] corrected for nucleated erythrocytes in Blood by Automated counon 12-19-1687MSQ corrected for nucl RBC Auto (Bld) [#/Vol]8.6 10 3/uL 4.0-11.0[facility] HospitalLymphocytes Auto (Bld) [#/Vol]on 39-97-0613Gcjqknorpje (Bld) [#/Vol]1.7 10 3/uL1.2-3.8[facility] HospitalLymphocytes/100 WBC Auto (Bld)on 09-77-2768Vzeledthiow/100 WBC (Bld)20.1 % 20.5-60.0[facility] HospitalMCH Auto (RBC) [Entitic mass]on 01-88-4048ADF (RBC) [Entitic mass]31.2 pg25.9-34.0[facility] HospitalMCHC Auto (RBC) [Mass/Vol]on 91-85-0907PJJT (RBC) [Mass/Vol]32.0 g/dL 29.9-35.2FOhio State East HospitalMCV Auto (RBC) [Entitic vol]on 49-08-0371CCW (RBC) [Entitic vol]97.4 fL80.0-94.0[facility] HospitalMonocytes Auto (Bld) [#/Vol]on 30-25-1280Uwscugguw (Bld) [#/Vol]0.7 10 3/uL0.3-0.8[facility] HospitalMonocytes/100 WBC Auto (Bld)on 47-38-6565Rjvqnzzrm/100 WBC (Bld)7.8 %1.7-12.0[facility] Neutrophils Auto (Bld) [#/Vol]on 60-86-1078Nvqxpemaaeb (Bld) [#/Vol]6.0 10 3/uL 1.4-6.5FOhio State East HospitalNeutrophils/100 WBC Auto (Bld)on 63-78-4705Bdzkzbzvsow/100 WBC (Bld)70.5 %43.0-75.0[facility] HospitalNo Panel Informationon 21-67-4387Qxnamjfaeoy # (Auto)0.1 10 3/uL0.0-0.7 [facility] HospitalImmature Granulocyte # (Auto)0.02 10 3/uL 0.00-0.03[facility] HospitalPlatelet mean volume Auto (Bld) [Entitic vol]on 53-39-2284Mhracgyi mean volume (Bld) [Entitic vol]10.3 fL 9.5-13.5FOhio State East HospitalPlatelets Auto (Bld) [#/Vol]on 00-28-0699Zspgynllu (Bld) [#/Vol]167 10 3/bE477-470SolkijkzvMercy Health Willard HospitalRBC Auto (Bld) [#/Vol]on 14-54-4675FOL (Bld) [#/Vol]4.17 10 6/uL4.70-6.10 [facility] Campuserum or plasma albumin/globulin mass ratioon 50-31-4746Jdwjmyy/Globulin [Mass ratio]1.0 {ratio}[facility] Campuserum or plasma anion gap determinationon 42-18-1097Jhdte gap [Moles/Vol] 11.7 mmol/LFFirelands Regional Medical Centererum or plasma total cholesterol/high density lipoprotein (HDL) cholesterol mass sajan 02-29-2024 Cholesterol.total/Cholesterol in HDL [Mass ratio]2.4 {ratio}[facility] HospitalComment on above:3.3 - 4.4 LOW RISK4.4 - 7.1 AVERAGE RISK7.1 - 11.0 MODERATE RISK>11.0 HIGH RISKNM HEART BLOOD POOL EJECTION FRACTION WALL MOTION (MUGA)on 70-84-4362GM HEART BLOOD POOL EJECTION FRACTION WALL MOTION (MUGA)Interpreted By: Karen Savage and Giannuzzi Michael STUDY: MUGA Performing facility: [facility], [address] [place] [address], [address], [address] Provider: Marlene Beatty DO, [facility] PCP: Dr. Teddy Adams Supervising provider: Karen Savage MD INDICATION: ICM CHF II HISTORY: Gender: M; Age: 78 y/o ; Height: HT 177.8 cm cm; Weight: WT 80.74 kg kg. CAD; High Cholesterol; HTN; Arrhythmias; Quit smoking unknown years ago. Cardiac catheterization on 2018. CABG on 1994. PTCA on 2004. COMPARISON: Previous nuclear testing completed [id number] EF=51% at [facility]. ACCESSION NUMBER(S): [id number] ORDERING CLINICIAN: BUD BEATTY TECHNIQUE: The patient received an IV injection of 3 ml of stannous pyrophosphate (PYP) using the in-vivo method of labeling red blood cells. After 25 minutes the patient received another IV injection of 26.3 mCi of Technetium 99m pertechnetate. Planar images of the left ventricle were obtained in the UPPER SORBIAN 45, Lt Lateral and anterior projections. FINDINGS: The right ventricle was normal. The left ventricle was normal in size. Regional wall motion was normal. Global resting LVEF was normal- at 67%. IMPRESSION: Normal resting right ventricular function. Normalresting left ventricular function. Left ventricular ejection fraction is 67%. NO PREVIOUS STUDY AVAILABLE FOR COMPARISON Signed by: Karen Savage 01/09/2024 5:34 PM Dictation workstation: [id number] Health NM Heart Wall motion and Ejection fractionon 48-80-6587Brkrzv resting right ventricular function. Normalresting left ventricular function. Left ventricular ejection fraction is 67%. NO PREVIOUS STUDY AVAILABLE FOR COMPARISON Signed by: Karen Savage 01/09/2024 5:34 PM Dictation workstation: [id number] By: Karen Savage and Giannuzzi Michael STUDY: MUGA Performing facility: [facility], [address] [place] [address] Provider: Marlene Beatty DO, [facility] PCP: Dr. Teddy Adams Supervising provider: Karen Savage MD INDICATION: ICM CHF II HISTORY: Gender: M; Age: 78 y/o ; Height: HT 177.8 cm cm; Weight: WT 80.74 kg kg. CAD; High Cholesterol; HTN; Arrhythmias; Quit smoking unknown years ago. Cardiac catheterization on 2018. CABG on 1994. PTCA on 2004. COMPARISON: Previous nuclear testing completed [id number] EF=51% at [facility]. ACCESSION NUMBER(S): [id number] ORDERING CLINICIAN: BUD BEATTY TECHNIQUE: The patient received an IV injection of 3 ml of stannous pyrophosphate (PYP) using the in-vivo method of labeling red blood cells. After 25 minutes the patient received another IV injection of 26.3 mCi of Technetium 99m pertechnetate. Planar images of the left ventricle were obtained in the UPPER SORBIAN 45, Lt Lateral and anterior projections. FINDINGS: The right ventricle was normal. The left ventricle was normal in size. Regional wall motion was normal. Global resting LVEF was normal- at 67%. Karen Park MD - 01/09/2024 Interpreted By: Karen Savage and Giannuzzi Michael STUDY: MUGA Performing facility: [facility], [address] [place] [address], [address], [place] [address] [facility] Provider: Marlene Beatty DO, [facility] PCP: Dr. Teddy Adams Supervising provider: Karen Savage MD INDICATION: ICM CHF II HISTORY: Gender: M; Age: 78 y/o ; Height: HT 177.8 cm cm; Weight: WT 80.74 kg kg. CAD; High Cholesterol; HTN; Arrhythmias; Quit smoking unknown years ago. Cardiac catheterization on 2018. CABG on 1994. PTCA on 2004. COMPARISON: Previous nuclear testing completed [id number] EF=51% at [facility]. ACCESSION NUMBER(S): [id number] ORDERING CLINICIAN: BUD BEATTY TECHNIQUE: The patient received an IV injection of 3 ml of stannous pyrophosphate (PYP) using the in-vivo method of labeling red blood cells. After 25 minutes the patient received another IV injection of 26.3 mCi of Technetium 99m pertechnetate. Planar images of the left ventricle were obtained in the UPPER SORBIAN 45, Lt Lateral and anterior projections. FINDINGS: The right ventricle was normal. The left ventricle was normal in size. Regional wall motion was normal. Global resting LVEF was normal- at 67%. IMPRESSION: Normal resting right ventricular function. Normalresting left ventricular function. Left ventricular ejection fraction is 67%. NO PREVIOUS STUDY AVAILABLE FOR COMPARISON Signed by: Karen Savage 01/09/2024 5:34 PM Dictation workstation: [id number] [facility] Work Phone: Radiology Study observation (narrative)[facility] Work Phone: nm Heart Wall motion and Ejection fractionOrdered By: Karen Savage on 23-96-4658CxmrhwltjuOhio State Harding Hospital Work Phone: CBC AUTO DIFFon 94-77-5000RXQW #0.0 103/ulNormal 0.0-0.1The [facility] HospitalComment on above:Performed By: #### FOL, IRON #### [facility] [address] [place] [address] [address] Lashell Maddoxsophils/100 WBC (Bld)0.6 %Normal0.2-2.0[facility] Comment on above:Performed By: #### FOL, IRON #### [facility] [address] [place] [address] Dr. Lashell Ramirez #0.1 103/ulNormal0.0-0.7The [facility] HospitalComment on above: Performed By: #### FOL, IRON #### [facility] [address] [place] [address] Dr. Lashell Bowensosinophils/100 WBC (Bld)2.2 %Normal0.9-7.0[facility] Comment on above:Performed By: #### FOL, IRON #### [facility] [address] [place] [address] Dr. Lashell Padillathrocyte distribution width (RBC) [Ratio]13.6 %Emyluh35.0-15.0 The [facility] HospitalComment on above:Performed By: #### FOL, IRON #### [facility] [address] [place] [address] Dr. Lashell CaballeroHematocrit (Bld) [Volume fraction]42.2 %Kjogsd58.0-54.0The [facility] HospitalComment on above:Performed By: #### FOL, IRON #### [facility] [address] [place] [address] Dr. Lashell CaballeroHemoglobin (Bld) [Mass/Vol]13.7 g/dLCritically low14.0-18.0The [facility] HospitalComment on above:Performed By: #### FOL, IRON #### [facility] [address] [place] [address] Dr. aLshell Fuentes #0.02 10e3/ulNormal0.00-0.03The [facility] HospitalComment on above:Performed By: #### FOL, IRON #### [facility] [address] [place] [address] Dr. Lashell Fuentes %0.3 %Normal0.0-0.5The [facility] HospitalComment on above: Performed By: #### FOL, IRON #### [facility] [address] [place] [address] Dr. Lashell Peterson #1.7 103/ulNormal1.2-3.8The [facility] HospitalComment on above:Performed By: #### FOL, IRON #### [facility] [address] [place] [address] [address] Lashell Bradfordhocytes/100 WBC (Bld)27.5 %Mozoja36.5-60.0The [facility] HospitalComment on above:Performed By: #### FOL, IRON #### [facility] [address] [place] [address] Dr. Lashell Higgins DIFF REQNONormalThe [facility] HospitalComment on above: Performed By: #### FOL, IRON #### [facility] [address] [place] [address] Dr. Lashell Bell (RBC) [Entitic mass]30.9 ytVennwn85.9-34.0The [facility] HospitalComment on above:Performed By: #### FOL, IRON #### [facility] [address] [place] [address] Dr. Lashell Kumar (RBC) [Mass/Vol]32.5 g/dYPttuof14.9-35.2The [facility] HospitalComment on above:Performed By: #### FOL, IRON #### [facility] [address] [place] [address] Dr. Lashell Kumar (RBC) [Entitic vol]95.0 fLCritically high80.0-94.0The [facility] HospitalComment on above:Performed By: #### FOL, IRON #### [facility] [address] [place] [address] Dr. Lashell Mckee #0.5 103/ulNormal0.3-0.8The [facility] HospitalComment on above:Performed By: #### FOL, IRON #### [facility] [address] [place] [address] Dr. Lashell Gonzalezocytes/100 WBC (Bld)7.4 %Normal1.7-12.0[facility] Comment on above:Performed By: #### FOL, IRON #### [facility] [address] [place] [address] Dr. Lashell James #3.9 103/ulNormal1.4-6.5The [facility] HospitalComment on above:Performed By: #### FOL, IRON #### [facility] [address] [place] [address] Dr. Lashell Schroederutrophils/100 WBC (Bld)62.0 %Wjhyiu45.0-75.0The [facility] HospitalCommclaren central [place] on above:Performed By: #### FOL, IRON #### [facility] [address] [place] [address] Dr. Lashell CaballeroPlatelet mean volume (Bld) [Entitic vol]10.3 fLNormal9.5-13.5The [facility] HospitalCommclaren central [place] on above:Performed By: #### FOL, IRON #### [facility] [address] [place] [address] Dr. Lashell CaballeroPLT195 103/nrPwvcuf449-697Svg [facility] on above: Performed By: #### FOL, IRON #### [facility] [address] [place] [address] Dr. Lashell CaballeroRBC4.44 106/ulCritically low4.70-6.10The [facility] on above:Performed By: #### FOL, IRON #### [facility] [address] [place] [address] Dr. Lashell CaballeroWBC6.3 103/ulNormal4.0-11.0The [facility] on above: Performed By: #### FOL, IRON #### [facility] [address] [place] [address] Dr. Lashell CaballeroGLYCOHEMOGLOBIN A1Con [id number] RECOMMENDATIONSEE BELOWNormal [place]Commclaren [facility] [place] on above:Result Comment: ADA RECOMMENDED LIMIT 4.0 - 6.0 ADA THERAPEUTIC TARGET < 7.0 ACTION SUGGESTED > 7.0Performed By: #### A1C #### [facility] [address] [place] [address] Dr. Lashell CaballeroGlucose [Mass/Vol]137 mg/dLTriHealth Good Samaritan HospitalComment on above:Performed By: #### A1C #### [facility] [address] [address] [address] Lashell CaballeroHbA1c (Bld) [Mass fraction]6.4 %Critically high4.5-6.2The [facility] HospitalComment on above:Performed By: #### A1C #### [facility] [address] [address] [address] Lashell Noel 04-92-6144Edlm [Mass/Vol]61.0 ug/dLCritically low 65.0-175.0The [facility] HospitalComment on above:Performed By: #### FOL, IRON #### [facility] [address] [place] [address] Dr. Lashell CaballeroLIPID PROFILEon [id number]-HDL RATIO NORMSEE BELOWTriHealth Good Samaritan HospitalComment on above:Result Comment: 3.3 - 4.4 LOW RISK 4.4 - 7.1 AVERAGE RISK 7.1 - 11.0 MODERATE RISK >11.0 HIGH RISKPerformed By: #### LIPID, LIVER, BMP #### [facility] [address] [place] [address] Dr. Lashell Abernathyesterol [Mass/Vol]138 mg/dLNormal<=200The [facility] Comment on above:Performed By: #### LIPID, LIVER, BMP #### [facility] [address] [address] [address] Lashell Abernathyesterol in HDL [Mass/Vol]50 mg/lJUrwurp17-17Bqv [facility] HospitalComment on above:Performed By: #### LIPID, LIVER, BMP #### [facility] [address] [place] [address] Dr. Lashell Abernathyesterol in LDL [Mass/Vol]68.0 mg/dLTriHealth Good Samaritan HospitalCommclaren central [place] on above:Performed By: #### LIPID, LIVER, BMP #### [facility] [address] [place] [address] Dr. Lashell CaballeroCholesterol.total/Cholesterol in HDL [Mass ratio]2.8 {ratio} NormalCentervilleComment on above:Performed By: #### LIPID, LIVER, BMP #### [facility] [address] [place] [address] Dr. Lashell Mcnally NORMAL> or = 60 mg/dl - LOW CARDIOVASCULAR RISK <40 mg/dl - HIGH CARDIOVASCULAR RISKTriHealth Good Samaritan HospitalComment on above:Performed By: #### LIPID, LIVER, BMP #### [facility] [address] [place] [address] Dr. Lashell CaballeroLDL CALC NORMALSEE BELOWTriHealth Good Samaritan HospitalComment on above:Result Comment: <100 mg/dl OPTIMAL 100 - 129 mg/dl NEAR OR ABOVE OPTIMAL 130 - 159 mg/dl BORDERLINE HIGH 160 - 189 mg/dl HIGH >190 mg/dl VERY HIGH Performed By: #### LIPID, LIVER, BMP #### [facility] [address] [place] [address] Dr. Lashell CaballeroTriglyceride [Mass/Vol]100 mg/dLNormal<=150[place] Comment on above:Performed By: #### LIPID, LIVER, BMP #### [facility] [address] [place] [address] Dr. Lashell PrinceLDL CALC20.0 mg/dLNoWayne HospitalComment on above: Performed By: #### LIPID, LIVER, BMP #### [facility] [address] [place] [address] Dr. Lashell Patel PROFILEon 06-53-3064Cqqeapy [Mass/Vol]3.5 g/dLNormal3.4-5.0 The [facility] HospitalComment on above:Performed By: #### LIPID, LIVER, BMP #### [facility] [address] [place] [address] Dr. Lashell CaballeroAlbumin/Globulin [Mass ratio]1.1 {ratio}NormalThe [facility] HospitalComment on above:Performed By: #### LIPID, LIVER, BMP #### [facility] [address] [place] [address] Dr. Lashell Mason [Catalytic activity/Vol]75 U/BDwjivs81-974KccCentervilleComment on above:Performed By: #### LIPID, LIVER, BMP #### [facility] [address] [address] [address] Lashell Boland [Catalytic activity/Vol]22 U/CYkjmol64-38Jrq [facility] HospitalComment on above:Performed By: #### LIPID, LIVER, BMP #### [facility] [address] [address] [address] Lashell Olmos [Catalytic activity/Vol]17 U/BEzeevw53-00Ktd [facility] HospitalComment on above:Performed By: #### LIPID, LIVER, BMP #### [facility] [address] [place] [address] Dr. Lashell Sánchez, CONJUGATED0.1 mg/dLNormal0.0-0.2[place] Comment on above:Performed By: #### LIPID, LIVER, BMP #### [facility] [address] [place] [address] Dr. Lashell Robirubin [Mass/Vol]0.4 mg/dLNormal0.2-1.0[place] Comment on above:Performed By: #### LIPID, LIVER, BMP #### [facility] [address] [place] [address] Dr. Lashell CaballeroGlobulin (S) [Mass/Vol]3.3 g/dLNormalThe [facility] HospitalComment on above:Performed By: #### LIPID, LIVER, BMP #### [facility] [address] [place] [address] Dr. Lashell CaballeroProtein [Mass/Vol]6.8 g/dLNormal6.4-8.2The [facility] Comment on above:Performed By: #### LIPID, LIVER, BMP #### [facility] [address] [address] [address] Lashell CaballeroPROF CHEM 8 (BAS METB)on 76-43-8001Eflqw gap [Moles/Vol]12.2 mmol/LNormalCentervilleComment on above:Performed By: #### LIPID, LIVER, BMP #### [facility] [address] [address] [address] Lashell CaballeroCalcium [Mass/Vol]9.1 mg/dLNormal8.5-10.1[place] Comment on above:Performed By: #### LIPID, LIVER, BMP #### [facility] [address] [address] [address] Lashell CaballeroChloride [Moles/Vol]107 mmol/EZaneza62-753Krc [facility] Comment on above:Performed By: #### LIPID, LIVER, BMP #### [facility] [address] [place] [address] Dr. Lashell CaballeroCO2 [Moles/Vol]28.9 mmol/GHxsqlb28.0-32.0[place] Comment on above:Performed By: #### LIPID, LIVER, BMP #### [facility] [address] [place] [address] Dr. Lashell CaballeroCreatinine [Mass/Vol]1.68 mg/dLCritically high0.70-1.30The [facility] HospitalComment on above:Performed By: #### LIPID, LIVER, BMP #### [facility] [address] [place] [address] Dr. Lashell BowensGFR-AF SFJVBRYA64 mL/min/1.02p1Tbbneqvbur low>=60The [facility] HospitalComment on above:Performed By: #### LIPID, LIVER, BMP #### [facility] [address] [place] [address] Dr. Lashell BowensGFR-NON AF CEIWBDOO62 mL/min/1.47v6Evnweawvon low>=60The [facility] HospitalComment on above:Performed By: #### LIPID, LIVER, BMP #### [facility] [address] [place] [address] Dr. Lashell CaballeroGlucose [Mass/Vol]114 mg/dLCritically fayy53-872Vbr [facility] HospitalComment on above:Performed By: #### LIPID, LIVER, BMP #### [facility] [address] [place] [address] Dr. Lashell CaballeroPotassium [Moles/Vol]4.1 mmol/LNormal3.5-5.1The [facility] Comment on above:Performed By: #### LIPID, LIVER, BMP #### [facility] [address] [address] [address] Lashell CaballeroSodium [Moles/Vol]144 mmol/XRpemzi054-029Zss [facility] Comment on above:Performed By: #### LIPID, LIVER, BMP #### [facility] [address] [address] [address] Lashell CaballeroUrea nitrogen [Mass/Vol]25.0 mg/dLCritically high7.0-18.0The [facility] HospitalComment on above:Performed By: #### LIPID, LIVER, BMP #### [facility] [address] [address] [address] Lashell Snell nitrogen/Creatinine [Mass ratio]14.9 mg/mgNormalThe [facility] HospitalComment on above:Performed By: #### LIPID, LIVER, BMP #### [facility] [address] [address] [address] Lashell CaballeroVITAMIN B12on 28-87-6039Cssgrdrve (Vitamin B12) [Mass/Vol]368.0 pg/mARbhvjh780.0-986.0The [facility] HospitalComment on above:Performed By: #### FOL, IRON #### [facility] [address] [address] [address] Lashell Morales Visit (Cardiology)on 52-46-0834Cnezma-up visit Diagnoses/Problems Assessed Atherosclerosis of coronary artery of [place] heart without angina pectoris (414.01) (I25.10) Status [...] (C43.59) Orders Atherosclerosis of coronary artery of [place] heart without angina pectoris Renew: Aspirin EC 81 MG Oral Tablet Delayed Release; TAKE 1 TABLET DAILY Atherosclerosis of coronary artery of [place] heart without angina pectoris, Hyperlipidemia Renew: Pravastatin Sodium 80 MG Oral Tablet; TAKE 1 TABLET DAILY Atherosclerosis of coronary artery of [place] heart without angina pectoris, Status post angioplasty [...] Weight Tips; Status:Complete - Retrospective Authorization; Done: [id number] Some eating tips that can help you lose weight.; Status:Complete - Retrospective Authorization; Done: [id number] SocHx: Former smoker Tobacco Use Screening; Status:Complete; Done: [id number] Patient Instructions Please bring all medicines, vitamins, [...] LAD x2 drug-eluting stents. Last heart catheterization 2 019 revealed the above anatomy with known occlusions of the [place] RCA and circumflex, patent LAD and stents and patent ramus branch at that time with moderate left ventricular dysfunction, improved on Entresto therapy and guideline directed medical therapies with subsequent MUGA scan revealing ejec tion fraction of 51% 1 year later and May 2020. Patient underwent work-up, and treatment and surgical intervention for melanoma of the left upper back details of which are reviewed, without complications or cardiovascular events. He has underlying history of [place] Heart Association class II/C heart failure, COPD, essential hypertension, former smoker, hyperlipidemia, the above- mentioned melanoma with excision, PCI LAD, ischemic cardiomyopathy [...] TABLET UNDER THE TONGUE EVERY 5 MINUTES UPTO 3 DOSES NEEDED FOR CHEST PAIN. Pravastatin Sodium 80 MG Oral TabletTAKE 1 TABLET DAILY. Allergies Medication No Known Drug Allergies Recorded By: Sommer Cain; 09/15/2021 9:56:00 AM Social History Problems Caffeine use (V49.89) (Z78.9) COFFEE 2 CUPS DAILY Former smoker (V15.82) (Z87.891) QUIT IN THE 'S No alcohol use No illicit drug use Review of Systems Constitutional: not feeling tired. Cardiovascular: no intermittent leg claudication and as noted in HPI. Respiratory: no cough and no shortness of breath. Gastrointestinal: no change in bowel habits and no blood in stools. Integumentary: no skin rashes. Neurological: no seizures and no frequent falls. All other systems have (more content not included)...NormalUH TouchworksTobacco Screening.on 97-95-2953Oniif depression screening assessmentNoL[facility] [facility] DO Work Phone: Fall risk assessmenta) No falls within the last year [facility] 250 DO Work Phone: Tobacco use status CPHSb) [facility] [place] 250 DO Work Phone: Tobacco Screening.on 90-01-5931Hhgb risk assessmenta) [facility] the [facility] 100 Work Phone: Tobacco use status CPHSb) [facility] 100 Work Phone: CBC AUTO DIFFon 79-35-0450VGET #0.0 103/ulNormal 0.0-0.1CentervilleComment on above:Performed By: #### CBC #### [facility] [address] [place] [address] Dr. Lashell CaballeroBasophils/100 WBC (Bld)0.3 %Normal0.2-2.0[place] Comment on above:Performed By: #### CBC #### [facility] [address] [place] [address] Dr. Lashell Ramirez #0.1 103/ulNormal0.0-0.7The [facility] HospitalComment on above: Performed By: #### CBC #### [facility] [address] [place] [address] Dr. Lashell Bowensosinophils/100 WBC (Bld)1.4 %Normal0.9-7.0[place] Comment on above:Performed By: #### CBC #### [facility] [address] [place] [address] Dr. Lashell Bowensrythrocyte distribution width (RBC) [Ratio]13.2 %Jvtbnx89.0-15.0 [place]ervilleComment on above:Performed By: #### CBC #### [facility] [address] [place] [address] Dr. Yilan ChangHematocrit (Bld) [Volume fraction]42.6 %Jjiduq29.0-54.0The [facility] HospitalComment on above:Performed By: #### CBC #### [facility] [address] [place] [address] Dr. Lashell CaballeroHemoglobin (Bld) [Mass/Vol]13.9 g/dLCritically low14.0-18.0The [facility] HospitalComment on above:Performed By: #### CBC #### [facility] [address] [place] [address] Dr. Lashell CaballeroIG #0.01 10e3/ulNormal0.00-0.03The [facility] HospitalComment on above:Performed By: #### CBC #### [facility] [address] [place] [address] Dr. Lashell CaballeroIG %0.1 %Normal0.0-0.5The [facility] HospitalComment on above: Performed By: #### CBC #### [facility] [address] [place] [address] Dr. Lashell Peterson #2.3 103/ulNormal1.2-3.8The [facility] HospitalComment on above:Performed By: #### CBC #### [facility] [address] [place] [address] Dr. Lashell Davenportmphocytes/100 WBC (Bld)33.6 %Kwiabe71.5-60.0The [facility] HospitalComment on above:Performed By: #### CBC #### [facility] [address] [place] [address] Dr. Lashell CaballeroMANUAL DIFF REQNONormalThe [facility] HospitalComment on above: Performed By: #### CBC #### [facility] [address] [place] [address] Dr. Lashell Bell (RBC) [Entitic mass]31.2 qmSzqbqq38.9-34.0The [facility] HospitalComment on above:Performed By: #### CBC #### [facility] [address] [place] [address] Dr. Lashell Kumar (RBC) [Mass/Vol]32.6 g/nEJmbeti13.9-35.2The [facility] HospitalComment on above:Performed By: #### CBC #### [facility] [address] [address] [address] Lashell KumarV (RBC) [Entitic vol]95.7 fLCritically high80.0-94.0The [facility] HospitalComment on above:Performed By: #### CBC #### [facility] [address] [address] [address] Lashell Mckee #0.5 103/ulNormal0.3-0.8The [facility] HospitalComment on above:Performed By: #### CBC #### [facility] [address] [place] [address] Dr. Lashell Gonzalezocytes/100 WBC (Bld)7.5 %Normal1.7-12.0The [facility] Comment on above:Performed By: #### CBC #### [facility] [address] [place] [address] Dr. Lashell SchroederUT #4.0 103/ulNormal1.4-6.5The [facility] HospitalComment on above:Performed By: #### CBC #### [facility] [address] [place] [address] Dr. Lashell Schroederutrophils/100 WBC (Bld)57.1 %Mehjdd11.0-75.0The [facility] HospitalComment on above:Performed By: #### CBC #### [facility] [address] [place] [address] Dr. Lashell Phippslet mean volume (Bld) [Entitic vol]9.7 fLNormal9.5-13.5The [facility] HospitalComment on above:Performed By: #### CBC #### [facility] [address] [place] [address] Dr. Lashell CaballeroPLT205 103/lwZojejz733-959Azf [facility] HospitalComment on above: Performed By: #### CBC #### [facility] [address] [address] [address] Lashell CaballeroRBC4.45 106/ulCritically low4.70-6.10The [facility] HospitalCommclaren central [place] on above:Performed By: #### CBC #### [facility] [address] [place] [address] Dr. Lashell CaballeroWBC7.0 103/ulNormal4.0-11.0The [facility] HospitalComment on above: Performed By: #### CBC #### [facility] [address] [place] [address] Dr. Lashell CaballeroFOLATEon 04-97-0080SDCDGD77.90 ng/mLNormal8.60-58.90The [facility] HospitalCommclaren central [place] on above:Performed By: #### LUIS ENRIQUE, IRON #### [facility] [address] [place] [address] Dr. Lashell CaballeroGLYCOHEMOGLOBIN A1Con 08-76-3999ZNW RECOMMENDATIONSEE BELOWNormal The [facility] HospitalCommclaren central [place] on above:Result Comment: ADA RECOMMENDED LIMIT 4.0 - 6.0 ADA THERAPEUTIC TARGET < 7.0 ACTION SUGGESTED > 7.0Performed By: #### A1C #### [facility] [address] [place] [address] Dr. Lashell CaballeroGlucose [Mass/Vol]140 mg/dLNormalThPremier Health Atrium Medical CenterCommclaren central [place] on above:Performed By: #### A1C #### [facility] [address] [place] [address] Dr. Lashell CaballeroHbA1c (Bld) [Mass fraction]6.5 %Critically high4.5-6.2The [facility] on above:Performed By: #### A1C #### [facility] [address] [place] [address] Dr. Lashell Noel 42-52-1533Xvcj [Mass/Vol]64.0 ug/dLCritically low 65.0-175.0The [facility] on above:Performed By: #### FOL, IRON #### [facility] [address] [place] [address] Dr. Lashell CaballeroLIPID PROFILEon 49-90-3305UKBT-HDL RATIO NORMSKettering Health Greene MemorialComment on above:Result Comment: 3.3 - 4.4 LOW RISK 4.4 - 7.1 AVERAGE RISK 7.1 - 11.0 MODERATE RISK >11.0 HIGH RISKPerformed By: #### BMP, LIPID #### [facility] [address] [address] [address] Lashell CaballeroCholesterol [Mass/Vol]139 mg/dLNormal<=200[place] Comment on above:Performed By: #### BMP, LIPID #### [facility] [address] [address] [address] Lashell CaballeroCholesterol in HDL [Mass/Vol]51 mg/zGYtiwvu21-17UenCentervilleComment on above:Performed By: #### BMP, LIPID #### [facility] [address] [place] [address] Dr. Lashell CaballeroCholesterol in LDL [Mass/Vol]68.2 mg/dLTriHealth Good Samaritan HospitalComment on above:Performed By: #### BMP, LIPID #### [facility] [address] [place] [address] Dr. Lashell Abernathyesterchristine.total/Cholesterol in HDL [Mass ratio]2.7 {ratio} NormalCentervilleComment on above:Performed By: #### BMP, LIPID #### [facility] [address] [place] [address] Dr. Lashell Mcnally NORMAL> or = 60 mg/dl - LOW CARDIOVASCULAR RISK <40 mg/dl - HIGH CARDIOVASCULAR RISKTriHealth Good Samaritan HospitalComment on above:Performed By: #### BMP, LIPID #### [facility] [address] [place] [address] Dr. Lashell CaballeroLDL CALC NORMALSEE [facility] State Health SystemComment on above:Result Comment: <100 mg/dl OPTIMAL 100 - 129 mg/dl NEAR OR ABOVE OPTIMAL 130 - 159 mg/dl BORDERLINE HIGH 160 - 189 mg/dl HIGH >190 mg/dl VERY HIGH Performed By: #### BMP, LIPID #### [facility] [address] [address] [address] Lashell CaballeroTriglyceride [Mass/Vol]99 mg/dLNormal<=150The [facility] Comment on above:Performed By: #### BMP, LIPID #### [facility] [address] [address] [address] Lashell CaballeroVLDL CALC19.8 mg/dLNormalThe [facility] HospitalComment on above: Performed By: #### BMP, LIPID #### [facility] [address] [address] [address] Lashell CaballeroPROF CHEM 8 (BAS METB)on 26-48-3474Tqgab gap [Moles/Vol]12.3 mmol/LNormalThe [facility] HospitalComment on above:Performed By: #### BMP, LIPID #### [facility] [address] [place] [address] Dr. Lashell CaballeroCalcium [Mass/Vol]9.2 mg/dLNormal8.5-10.1The [facility] Comment on above:Performed By: #### BMP, LIPID #### [facility] [address] [address] [address] Lashell CaballeroChloride [Moles/Vol]103 mmol/HMfspkp00-363Wmp [facility] Comment on above:Performed By: #### BMP, LIPID #### [facility] [address] [address] [address] Lashell CaballeroCO2 [Moles/Vol]29.9 mmol/JRpobrb96.0-32.0The [facility] Comment on above:Performed By: #### BMP, LIPID #### [facility] [address] [address] [address] Lashell CaballeroCreatinine [Mass/Vol]1.48 mg/dLCritically high0.70-1.30The [facility] HospitalComment on above:Performed By: #### BMP, LIPID #### [facility] [address] [address] [address] Lobo ChangEGFR-AF XDXPAWBX05 mL/min/1.99s5Hoqeslfvbi low>=60The [facility] HospitalComment on above:Performed By: #### BMP, LIPID #### [facility] [address] [address] [address] Lashell BowensGFR-NON AF LVUQYLSR35 mL/min/1.68r2Rovwkjhogj low>=60The [facility] HospitalComment on above:Performed By: #### BMP, LIPID #### [facility] [address] [address] [address] Lashell CaballeroGlucose [Mass/Vol]101 mg/oYAziblv52-294EggCenterville Comment on above:Performed By: #### BMP, LIPID #### [facility] [address] [address] [address] Lashell CaballeroPotassium [Moles/Vol]4.2 mmol/LNormal3.5-5.1[place] Comment on above:Performed By: #### BMP, LIPID #### [facility] [address] [address] [address] Lashell Lockhartdium [Moles/Vol]141 mmol/NFbtuac588-096MnjCenterville Comment on above:Performed By: #### BMP, LIPID #### [facility] [address] [address] [address] Lashell CaballeroUrea nitrogen [Mass/Vol]21.0 mg/dLCritically high7.0-18.0CentervilleComment on above:Performed By: #### BMP, LIPID #### [facility] [address] [address] [address] Lashell Snell nitrogen/Creatinine [Mass ratio]14.2 mg/mgNormalThe [facility] HospitalComment on above:Performed By: #### BMP, LIPID #### [facility] [address] [address] [address] Lashell Givensmatopathologyon 81-99-0387YsbldpfguvcxzyndFxkv [facility] Pathologist: LEONOR LÓPEZ MD Date [...] M.D. Electronically Signed Out By LEONOR LÓPEZ MD/[facility] By the signature on this report, the individual or group listed as making the Final Interpretation/Diagnosis certifies that they have reviewed this case. Diagnostic interpretation performed at [facility] [address] [place] [address], [place] [address] Microscopic Description: Microscopic analysis shows a symmetric, [...] embedded in toto in four blocks. mlz/08/18/2022 [facility] [address]Comment on above: Performed By: #### D #### DermatopathologyNo Panel Informationon 79-54-6156SRSonoma Developmental [facility] 100 Work Phone: Tobacco Screening.on 33-79-7935Hqjm risk assessmenta) No falls within the last dkmmKQ-Pajvndh-Obbt MOB02 [place] Work Phone: Tobacco use status CPb) WnQT-Hyfnkxw-Hhjf MOB02 [place] Work Phone: Tobacco Screening.on 49-33-7364Aknq risk assessmenta) [facility] the last [facility] Work Phone: Tobacco use status CPb) [facility] Work Phone: Tobacco Screening.[facility] Work Phone: Dermatopathologyon 14-78-7543KvntwdgwhvsxyiyfNcxf JUN[facility] TORRES Pathologist: LEONOR LÓPEZ MD Date of Procedure: 07/07/2022 Date Received: 07/11/2022 Date Reported 07/14/2022 Submitting Physician: ОЛЬГА BROWN MD Location: [facility] External # FINAL DIAGNOSIS A. SKIN, [...] determined by the Department of Pathology at [facility]. The FDA does not require this [...] appropriately. Electronically Signed Out By LEONOR LÓPEZ MD/[facility] By the signature on this report, the individual or group listed as making the Final Interpretation/Diagnosis certifies that they have reviewed this case. Diagnostic interpretation performed at [facility] [address] [id number], [facility] [facility] [address] Microscopic Description: A. Microscopic examination reveals a [...] superior, long stitch lateral. Melanoma. Excision. B: [place] lymph node #1 count 1055. Melanoma. Specimens Submitted As: A: SKIN, LEFT UPPER BACK B: NODE, LEFT AXILLARY SENTINEL LYMPH NODE #1 COUNT 1055 Gross Description: A: Received in formalin is a park ellipse of skin measuring 550x54m31qk, oriented by the surgeon with a short [...] o'clock. B: Received in formalin is one ukb-pxhwj-jennmv irregularly shaped piece of skin measuring 92b32g01cs. The specimen is inked and embedded in toto. ink/07/11/2022 [facility] [place] [id number] [place], [place] [address]Comment on above: Performed By: #### D #### DermatopathologyLYMP GLANDon 29-02-9464TMKKI GLANDMRN: [id number] Patient Name: JUNIOR TORRES STUDY: TUMOR LOC SPECT/CT; LYMPH GLAND; 07/07/2022 2:33 pm INDICATION: WLE of Back w/ SLNB on 07/07/2022 C43.59: Malignant melanoma of back. COMPARISON: None. ACCESSION NUMBER(S): [id number]; [id number] ORDERING CLINICIAN: ОЛЬГА BROWN TECHNIQUE: DIVISION OF [...] as stated. This study was interpreted at [place], [place]. Electronically signed by: HAILEE AGUDELO MDNormalSradha. [facility] NM Lymph Glandon 20-41-9751GY Lymph node PsxtwMsszqxDV-Gupmens-[facility] Work Phone: NM Tumor Loc Spec/CTon 37-16-4678CL Tumor Loc Spec/CT UkbcukJX-Btpnihc-Sfvprst [facility] Work Phone: No Panel Informationon 75-15-5106PHM[facility] Work Phone: Order Reconciliationon 07-75-6368Uzhwk Reconciliation Page 1 Discharge Reconciliation Document Reconciliation [...] mg is not required (more content not included)...NormalSt. [facility] HospitalPatient Profile - Preop v3on 80-29-5377Spkqcnz Profile - Preop v3This report has been cancelled. NormalSt. Russellville HospitalTUMOR LOC SPECT/CTon 18-69-7335TWOMJ LOC SPECT/CT Patient Name: JUNIOR TORRES STUDY: TUMOR LOC SPECT/CT; LYMPH GLAND; 07/07/2022 2:33 pm INDICATION: WLE of Back w/ SLNB on 07/07/2022 C43.59: Malignant melanoma of back. COMPARISON: None. ACCESSION NUMBER(S): [id number]; [id number] ORDERING CLINICIAN: ОЛЬГА BROWN TECHNIQUE: DIVISION OF [...] as stated. This study was interpreted at [facility], [place], [place]. Electronically signed by: HAILEE AGUDELO MDNobrienalSt. [facility] CORONAVIRUS 2019 BY PCR, SCREEN ASYMPTOMATIC AMBULATORYon 06-26-2077XAYN-CoV-2 (COVID-19) RNA MARAH+probe Ql (Unsp spec)Not detectedNormalNot DetectedMeadowlands Hospital Medical CenterComment on above:Result Comment: . This assay is designed to [...] patient management decisions. Fact sheet for providers: https://www.fda.gov/media/214408/download Fact sheet for patients: https://www.fda.gov/media/575601/download This test has received FDA Emergency Use Authorization (EUA) and has been verified by [facility] ([facility]). This test is only authorized for the duration of time that circumstances exist to justify the authorization of the emergency use of in vitro diagnostic tests for the detection of SARS-CoV-2 virus and/or diagnosis of COVID-19 infection under section 564(b)(1) of the Act, 21 U.S.C. 360bbb-3(b)(1), unless the authorization is terminated or revoked sooner. [facility] is certified under CLIA-88 as qualified to perform high complexity testing. Testing is performed in the [facility] laboratories [place] [address] [place] [address].Performed By: #### COVSA #### [facility] [address] [facility]. [place], [place] [address]Secrf 19 Resultson 24-46-0215ATBC-CoV-2 (COVID-19) RNA MARAH+probe Ql (Unsp spec)NEGATIVE COVID-19 Test Coronaviruses are common world-wide and [...] You may also be contacted by the [facility] to see if any of [...] or Naproxen (Aleve) can also be used. Qezh-gfc-jqrjqdq cough and cold medicines can be used according to the instructions on the package. Some ktas-vpk-pshjosm medicines also contain acetaminophen. Make sure you [...] water are not available, use alcohol-based hand movie projectionist. Avoid touching your eyes, nose, and mouth [...] gone for 24 tayla (more content not included)...NormalMeadowlands Hospital Medical CenterBASIC METABOLIC PANELon 07-05-2022 Anion gap [Moles/Vol]10 mmol/VCzicmm50 - 20St. [facility] HospitalComment on above:Performed By: #### BMP #### [address] [address]Gohfbzk [Mass/Vol]9.2 mg/dLNormal8.6 - 10.3St. [facility]ville HospitalComment on above:Performed By: #### BMP #### [address] [address]Wtkmbsgd [Moles/Vol]104 mmol/SSjdftk79 - 107St. [facility] HospitalComment on above:Performed By: #### BMP #### [address] [address]Yfgtrlfzyr [Mass/Vol]1.66 mg/dLHigh0.50 - 1.30St. [facility] HospitalComment on above:Performed By: #### BMP #### [address] [address]KFD/1.73 sq M.predicted among non-blacks MDRD (S/P/Bld) [Vol rate/Area]42 mL/min/{1.73_m2}Abnormal>90St. [facility] HospitalCommclaren central [facility] on above: Result Comment: CALCULATIONS OF ESTIMATED GFR ARE PERFORMED USING THE 2020 CKD-EPI STUDY REFIT EQUATION WITHOUT THE RACE VARIABLE FOR THE IDMS-TRACEABLE CREATININE METHODS. https://jasn.asnjournals.org/content//ASN.8619837269Veelhmsfy By: #### BMP #### [address] [address]Fawpxyh [Mass/Vol]90 mg/sRMgtetz38 - 99St. [facility] Comment on above:Performed By: #### BMP #### [address] [address]ZWW1 (Bld) [Moles/Vol]29 mmol/MIwlsgj92 - 32St. [facility] HospitalComment on above:Performed By: #### BMP #### [address] [address]Dkrwwvqaj [Moles/Vol]4.1 mmol/LNormal3.5 - 5.3St. [facility]ville HospitalComment on above:Performed By: #### BMP #### [address] [address]Nhhmxm [Moles/Vol]139 mmol/CEztdhl846 - 145St. [facility] HospitalComment on above:Performed By: #### BMP #### [address] [address]Rsvo nitrogen [Mass/Vol]25 mg/dLHigh6 - 23St. [facility] HospitalComment on above:Performed By: #### BMP #### [address] [address]PBVGJVKEHCR 2019 BY PCR, SCREEN ASYMPTOMATIC AMBULATORYon 58-81-1544Vjl Specimen SourceNasal, NasopharyngealNormalUH Capital Health System [facility])Comment on above:Performed By: #### COVSA #### [facility] [address] [place], [place] [address]Cmgodiyiqourbsadf 12 Leadon 12-11-8076Kuqtqobqjfipwmtyb 12 LeadVentricular Rate 46 Atrial Rate 46 P-R Interval 212 QRS Duration 94 Q-T Interval 440 QTC Calculation(Bazett) 385 P Dayton 53 R Dayton 17 T [place] 116 QRS Count 7 Q Onset 223 P Onset 117 P Offset 172 T Offset 443 QTC Fredericia 402 Diagnosis Class Abnormal Diagnosis Marked sinus bradycardia with 1st degree AV block Nonspecific T wave abnormality Abnormal ECG No previous ECGs available Confirmed by Cleveland Sheth ([id number]) on 07/12/2022 10:02:02 PMNormalMeadowlands Hospital Medical CenterLaboratory - Chemistry and Chemistry - challengeon 83-09-6925Kaayj gap [Moles/Vol]10 mmol/L10 - 40BM-Dsqtjnk-FthmcgmMarlette Regional Hospital Work Phone: Calcium [Mass/Vol]9.2 mg/dL8.6 - 10.3 TK-Mnkrxgq-MzbrxpmMarlette Regional Hospital Work Phone: Chloride [Moles/Vol]104 mmol/L98 - 107 AQ-Dkymeky-IrqeasyMarlette Regional Hospital Work Phone: RZ1 [Moles/Vol]29 mmol/L21 - 57UZ-Rnoxcow-VxwubgeMarlette Regional Hospital Work Phone: Creatinine [Mass/Vol]1.66 mg/dLabove high thresholdSee EaswoXW-Hzgaiua-GlqkqnoBeaumont Hospital Work Phone: Comment on above:Reference Range: 0.50 - 1.30Glucose [Mass/Vol]90 mg/dL74 - 48AC-Bylfhjd-VgpkpfxHillsdale Hospital Work Phone: Potassium [Moles/Vol]4.1 mmol/L3.5 - 5.3 OB-Bjjpcyd-KmhenpeHillsdale Hospital Work Phone: Sodium [Moles/Vol]139 mmol/L136 - 145 DE-Ubcqcyg-FbfwzfhHillsdale Hospital Work Phone: Urea nitrogen [Mass/Vol]25 mg/dLabove high threshold6 - 29HY-Usmtcmv-OfmxjslHillsdale Hospital Work Phone: No Panel Informationon 72-45-7270Izy detectedNormalSee EqqdmNU-Gebecvx-RkbegpeBeaumont Hospital Work Phone: Comment on above:SOURCE: Nasal, NasopharyngealReference Range: Not Detected.This assay is designed to detect the N, ORF1ab and/or S genes of SARS-CoV-2 via nucleic acid amplification. A Negative (NOT DETECTED) resultdoes not preclude 2019-nCoV infection since the adequacy of sample collection and/or low viral burden may result in presence of viral nucleic acids below the clinical sensitivity of this test method.Negative (NOT DETECTED) result should not be used as the sole basis for treatment or other patient management decisions. Rather negative results should be combined with clinical observations, patienthistory, and epidemiological information to make patient management decisions.Fact sheet for providers: https://www.fda.gov/media/936249/downloadFact sheet for patients: https://www.fda.gov/media/590721/downloadThis test has received FDA Emergency Use Authorization (EUA) and has been verified by [facility] ([facility]). This test is only authorized for the duration of time that circumstances exist to justify the authorization of the emergency use of in vitro diagnostic tests for the detection of SARS-CoV-2 virus and/or diagnosis of COVID-19 infection under section 564(b)(1) of the Act, 21 U.S.C. 360bbb- 3(b)(1), unless the authorization is terminated or revoked sooner. [facility] is certified under CLIA-88 as qualified to perform high complexity testing. Testing is performed in the [facility] laboratories located at [address] [place] [address].42 {mL/min/1.73m2}Abnormal>90 VJ-Pzvkueb-RmsyxrvMarlette Regional Hospital Work Phone: comment on above:CALCULATIONS OF ESTIMATED GFR ARE PERFORMED USING THE 2020 CKD-EPI STUDY REFIT EQUATION WITHOUT THERACE VARIABLE FOR THE IDMS-TRACEABLE CREATININE METHODS.https://jasn.asnjournals.org/content//ASN.4080070849 https://JRINTWLXHSUHD01:8080/musescripts/museweb.dll?RetrieveTestByDateTime?Celeste pjeSA=[id number]& Date=05-07-2022&Time=10%3a10%3a53%3a00&TestType=ECG&Site=12&OutputType=PDF&Ext=P [facility] 250 DO Work Phone: Marked sinus bradycardia with 1st degree AV blockFirstHealth Montgomery Memorial Hospital [facility] 250 DO Work Phone: [phone]-Avaqg [place] [facility] 250 DO Work Phone: [phone] [address] [place] [address] [facility] 250 DO Work Phone: [phone] [address] [place] [address] [facility] 250 DO Work Phone: [phone] [address] [place] [address] [facility] 250 DO Work Phone: [phone] [address] [place] [address] [facility] 250 DO Work Phone: [phone] [address] [place] [address] [facility] 250 DO Work Phone: [phone] [place] [address] [facility] 250 DO Work Phone: [phone] [address] [place] [address] [facility] 250 DO Work Phone: [phone] [address] [place] [address] [facility] 250 DO Work Phone: [phone] [address] [place] [address] [facility] 250 DO Work Phone: [phone] [address] [place] [address] [facility] 250 DO Work Phone: [phone] [address] [place] [address] [facility] 250 DO Work Phone: [phone] [address] [place] [address] [facility] 250 DO Work Phone: [phone] [address] [place] [address] [facility] 250 DO Work Phone: [phone] [address] [place] [address] [facility] 250 DO Work Phone: Tobacco Screening.on 58-86-7660Fjgq risk assessmenta) No falls within the last tjrxSN-Gpsqhtv-UnbtuboBeaumont Hospital Work Phone: Tobacco use status CPHSb) SwCZ-Nesvdpc-ZolqtbbCorewell Health [facility]od[facility] Hospital Work Phone: dermatopathologyon 38-56-1761XmrxdicagaveuywhWvai: JUNIOR TORRES Pathologist: LEONOR LÓPEZ MD Date of Procedure: 06/16/2022 Date Received: 06/16/2022 Date Reported 06/23/2022 Submitting Physician: ОЛЬГА BROWN MD Location: [facility] Copy To/Referring/Attending: JULITA OWEN MD FINAL DIAGNOSIS 1 SLIDE, [facility] #[id number] (BX: 06/06/2022) SKIN, LEFT UPPER BACK, SHAVE [...] M.D. CANCER SUMMARY REPORT A. 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 is one slide labeled [id number] (BX: 06/06/2022) along with the corresponding pathology report. One H+E slide for block 2 received 06/23/22 upon request. Slide/Block Description 1 SLIDE, [id number]. Keep Slides: N Slides Returned: N Personal Consult: JASONEssentia HealthComment on above:Performed By: #### D #### DermatopathologyNo Panel Informationon 36-12-1100QJBeaumont Hospital Work Phone: Tobacco Screening.on 21-61-5357Jvwlw depression screening assessmentProvidence City Hospital [facility] 250 DO Work Phone: Fall risk assessmenta) No falls within the last year [facility] 250 DO Work Phone: Tobacco use status CPHSb) [facility] [place] 250 DO Work Phone: Tobacco Screening.on 79-33-0982Uptk risk assessmenta) No falls within the last yearL[facility] 250 DO Work Phone: Heart RateRegularLourdes Counseling Center [facility] 250 DO Work Phone: Tobacco use status CPHSb) [facility] [place] 250 DO Work Phone: Tobacco Screening.on 86-45-5061Mfgu risk assessmenta) No falls within the last yearL[facility] 250 DO Work Phone: Tobacco use status CPHSb) NoMP-[place] [facility] [place] 250 DO Work Phone: NOR MUGA SCAN INJECTIONon 05-61-4484DYI MUGA SCAN INJECTIONMRN: [id number] Patient Name: JUNIOR TORRES STUDY: MUGA SCAN INJECTION; MUGA (GATED CARDIAC BLOOD POOL); 06/11/2020 3:13 pm; 06/11/2020 3:17 pm Performing facility: [facility], [address] [place] [address] [address], [place] [address] Patient name: JUNIOR TORRES Gender: M Age: 75 y/o Height: 70 ; Weight: 192lbs; BMI: INDICATION: MUGA. Ischemic Cardiomyopathy HISTORY: HTN, CAD, FAMILY HX CAD, CABG 1994, CATH 2018 COMPARISON: None. ACCESSION NUMBER(S): [id number]; [id number] ORDERING CLINICIAN: BUD BEATTY TECHNIQUE: The patient's red blood cells were [...] available for comparison Electronically signed by: JIMMIE ARELLANO MDVeterans Affairs Pittsburgh Healthcare System Vital Signs Date TimeVital SignValuePerforming YwydekeogIudrltpf77-74-0083 15:52-0400 Diastolic blood hjluswuo71 mm[Hg]Hayden Oberer DO Work Phone: [facility]08-25-2025 15:52-0400 Systolic blood sxeoipyn228 mm[Hg]Hayden Oberer DO Work Phone: [facility]08-25-2025 15:50-0400 Body awlytq589.8 cmKarl Oberer DO Work Phone: [facility]08-25-2025 15:50-0400 Body mass index (BMI) [Ratio]24.8 kg/m2Karl Oberer DO Work Phone: 1(059)[address] [place], [place] 1282208-25-2025 15:50-0400 Body kajbqjorxho16.7 [degF]Hayden Oberer DO Work Phone: 1(097)[address] [place], [place] 1282208-25-2025 15:50-0400 Body mhdmpy04.49 kgKarl Oberer DO Work Phone: 1(098)[address] [place], [place] 1282208-25-2025 15:50-0400 Heart rate64 /minKarl Oberer DO Work Phone: 1(329)[address] [place], [place] 1282208-25-2025 15:50-0400 Respiratory rate16 /minKarl Oberer DO Work Phone: 1(114)[address] [place], [place] 1282208-25-2025 15:50-0400 SaO2% (BldA) [Mass fraction]98 %Hayden Oberer DO Work Phone: 1(227)[address] [place], [place] 1282208-05-2025 11:32-0400 Diastolic blood tcqarppj65 mm[Hg]Hayden Oberer DO Work Phone: 1(030)[address] [place], [place] 1282208-05-2025 11:32-0400 Systolic blood vudvzdmo633 mm[Hg]Hayden Oberer DO Work Phone: 1(509)[address] [place], [place] 1282208-05-2025 11:30-0400 Body jrloaa352.8 cmKarl Oberer DO Work Phone: 1(741)[address] [place], [place] 1282208-05-2025 11:30-0400 Body mass index (BMI) [Ratio]24.7 kg/m2Karl Oberer DO Work Phone: 1(238)[address] [place], [place] 1282208-05-2025 11:30-0400 Body yiksdjoichq88.2 [degF]Hayden Oberer DO Work Phone: 1(522)[address] [place], [place] 1282208-05-2025 11:30-0400 Body .24 kgKarl Oberer DO Work Phone: 1(770)[address] [place], [place] 1282208-05-2025 11:30-0400 Heart rate60 /minKarl Oberer DO Work Phone: [phone] [place], [place] 0256408-05-2025 11:30-0400 Respiratory rate16 /minKarl Oberer DO Work Phone: [phone]08-05-2025 11:30-0400 SaO2% (BldA) [Mass fraction]99 %Hayden Oberer DO Work Phone: [phone]07-10-2025 10:34-0400 Body tvmluu254.8 cmWillfred Rogerio DO Work Phone: [phone] [place], [place] 8475907-10-2025 10:34-0400 Body mass index (BMI) [Ratio]24.82 kg/f2Panqkjz Rogerio DO Work Phone: [phone] [place], [place] 8475907-10-2025 10:34-0400 Body fgodxd23.47 kgWillfred Rogerio DO Work Phone: 1([phone] [place], [place] 8475907-10-2025 10:34-0400 Diastolic blood ilfwmksn14 mm[Hg]Bud Beatty DO Work Phone: [phone] [place], [place] 8475907-10-2025 10:34-0400 Heart rate68 /minWianahi Camilodon DO Work Phone: 9(097)820-[address] [place], [place] 8475907-10-2025 10:34-0400 Systolic blood qvowwtcf023 mm[Hg]Bud Beatty DO Work Phone: 1(211)465-[address] [place], [place] 8475907-03-2025 14:37-0400 Body ntjzmu794.8 cmKarl Oberer DO Work Phone: [phone]07-03-2025 14:37-0400 Body mass index (BMI) [Ratio]24.7 kg/m2Karl Oberer DO Work Phone: [phone]07-03-2025 14:37-0400 Body bowqxc68.01 kgKarl Oberer DO Work Phone: [phone]07-03-2025 14:37-0400 Diastolic blood xygkjxll00 mm[Hg]Hayden Oberer DO Work Phone: 1(889)[address] [place], [place] 1282207-03-2025 14:37-0400 Heart rate71 /minKarl Oberer DO Work Phone: 1(487)[address] [place], [place] 1282207-03-2025 14:37-0400 Systolic blood reuelrgg713 mm[Hg]Hayden Oberer DO Work Phone: 1(270)[address] [place], [place] 1282205-06-2025 08:57-0400 Body riysbu957.8 cmRichmeaghan Papo Work Phone: 1(916)[address] [place], [place] 4617605-06-2025 08:57-0400 Body mass index (BMI) [Ratio]24.7 kg/e9GwnlrzxОльга Tejedat Work Phone: 1(173)[address] [place], [place] 4617605-06-2025 08:57-0400 Body sbkdxfyohsk05.3 [degF]Ольга Tejedat Work Phone: 1(708)[address] [place], [place] 4617605-06-2025 08:57-0400 Body lwgdno12.24 kgRichmeaghan Papo Work Phone: 8(167)[address] [place], [place] 4617605-06-2025 08:57-0400 Diastolic blood mm[Hg]Ольга Tejedat Work Phone: 1(311)[address] [place], [place] 4617605-06-2025 08:57-0400 Heart rate70 /minОльга Papo Work Phone: 1(296)[address] [place], [place] 4617605-06-2025 08:57-0400 Respiratory rate16 /minОльга Papo Work Phone: [phone])[address] [place], [place] 4617605-06-2025 08:57-0400 SaO2% (BldA) [Mass fraction]97 %Ольга Tejedat Work Phone: 1(788)[address] [place], [place] 4617605-06-2025 08:57-0400 Systolic blood sbgczlos922 mm[Hg]Ольга Barros Work Phone: 1(184)[address] [place], [place] 4617604-02-2025 14:20-0400 Body zviwff871.8 cmRxiomara Barros Work Phone: 1(911)[address] [place], [place] 4617604-02-2025 14:20-0400 Body mass index (BMI) [Ratio]25.1 kg/z3ZkpbskxлОьга Barros Work Phone: 1(165)[address] [place], [place] 4617604-02-2025 14:20-0400 Body qxzvtu34.37 kgОльга Barros Work Phone: 1(290)[address] [place], [place] 4617611-12-2024 14:01-0500 Body hljabp991.8 cmKarl Oberer DO Work Phone: 1(645)[address] [place], [place] 1282211-12-2024 14:01-0500 Body mass index (BMI) [Ratio]24.3 kg/m2Karl Oberer DO Work Phone: 1(067)[address] [place], [place] 1282211-12-2024 14:01-0500 Body xroyiytexrl86.3 [degF]Hayden Oberer DO Work Phone: 1(814)[address] [place], [place] 1282211-12-2024 14:01-0500 Body rpissn91.85 kgKarl Oberer DO Work Phone: 1(507)[address] [place], [place] 1282211-12-2024 14:01-0500 Diastolic blood bqlgskka42 mm[Hg]Hayden Oberer DO Work Phone: 1(612)[address] [place], [place] 1282211-12-2024 14:01-0500 Heart rate64 /minKarl Oberer DO Work Phone: 1(803)[address] [place], [place] 1282211-12-2024 14:01-0500 Respiratory rate16 /minKarl Oberer DO Work Phone: 1(607)[address] [place], [place] 1282211-12-2024 14:01-0500 SaO2% (BldA) [Mass fraction]95 %Hayden Oberer DO Work Phone: 1(592)[address] [place], [place] 1282211-12-2024 14:01-0500 Systolic blood dpqpptsu723 mm[Hg]Hayden Oberer DO Work Phone: 1(066)[address] [place], [place] 1282210-14-2024 13:30-0400 Diastolic blood nlmayxus53 mm[Hg]DO Hayden Oberer Work Phone: 1(391)[address] [place], [place] 1282210-14-2024 13:30-0400 Heart rate67 /minDO Hayden Oberer Work Phone: 1(927)[address] [place], [place] 1282210-14-2024 13:30-0400 Respiratory rate16 /minDO Hayden Oberer Work Phone: 1(169)[address] [place], [place] 1282210-14-2024 13:30-0400 SaO2% (BldA) [Mass fraction]98 %DO Hayden Oberer Work Phone: 1(139)[address] [place], [place] 1282210-14-2024 13:30-0400 Systolic blood bzpyncub435 mm[Hg]DO Hayden Oberer Work Phone: 1(663)[address] [place], [place] 1282210-14-2024 12:01-0400 Body opxngn959.8 cmDO Hayden Oberer Work Phone: 1(036)[address] [place], [place] 1282210-14-2024 12:01-0400 Body .11 kgDO Hayden Oberer Work Phone: 1(127)[address] [place], [place] 1282209-18-2024 13:13-0400 Body yabtek123.34 cmRichard Papo Work Phone: 1(926)[address] [place], [place] 4617609-18-2024 13:13-0400 Body mass index (BMI) [Ratio]34.1 kg/c2Vgsurdx Papo Work Phone: 1(322)[address] [place], [place] 4617609-18-2024 13:13-0400 Body zcqahi327 kgRichard Papo Work Phone: 1(118)[address] [place], [place] 4617609-03-2024 11:08-0400 Diastolic blood ikcnbgai17 mm[Hg]Bud Beatty DO Work Phone: 1(440)[address]09-03-2024 11:08-0400 Heart rate72 /minBud Camilodon DO Work Phone: 1(356)[address]09-03-2024 11:08-0400 Systolic blood ucotvywt909 mm[Hg]Bud Beatty DO Work Phone: 1(283)[address]09-03-2024 11:05-0400 Body uqfedm901.8 cmWianahi Rogerio DO Work Phone: 1(840)[address]09-03-2024 11:05-0400 Body mass index (BMI) [Ratio]24.39 kg/p6Uckcoyr Rogerio DO Work Phone: 1(495)[address]09-03-2024 11:05-0400 Body nprqyf30.11 kgWianahi Rogerio DO Work Phone: 1(368)[address]05-21-2024 13:40-0400 Body .8 cmWianahi Rogerio DO Work Phone: 1(559)[address]05-21-2024 13:40-0400 Body mass index (BMI) [Ratio]25.4 kg/f2Ineocww Rogerio DO Work Phone: 1(863)[address]05-21-2024 13:40-0400 Body vsnuhm42.29 kgWianhai Camilodon DO Work Phone: 1(771)[address] [place], [place] 8475905-21-2024 13:40-0400 Diastolic blood ybpptowp31 mm[Hg]Bud Beatty DO Work Phone: 1(109)[address]05-21-2024 13:40-0400 Heart rate72 /Felipe Camilodon DO Work Phone: 1(018)[address]05-21-2024 13:40-0400 Systolic blood dapcptdy810 mm[Hg]Bud Beatty DO Work Phone: 1(594)[address]05-03-2024 13:53-0400 Diastolic blood cqnrxupc32 mm[Hg]Ольга Barros Work Phone: 1(441)[address] [place], [place] 4617605-03-2024 13:53-0400 Systolic blood hyvfegyt998 mm[Hg]Ольга Barros Work Phone: 1(461)[address] [place], [place] 4617605-03-2024 13:50-0400 Body kaxvac778.34 cmRxiomara Barros Work Phone: 1(613)[address] [place], [place] 4617605-03-2024 13:50-0400 Body mass index (BMI) [Ratio]24.5 kg/n3FhjgmdvОльга Barros Work Phone: 1(023)[address] [place], [place] 4617605-03-2024 13:50-0400 Body qtrbztsumcl00 [degF]Ольга Barros Work Phone: 1(894)[address] [place] [id number] 13:50-0400 Body dwypff73.97 kgОльга Barros Work Phone: 1(539)[address] [place], [place] 4617605-03-2024 13:50-0400 Heart rate47 /minОльга Barros Work Phone: 1(217)[address] [place], [place] 4617605-03-2024 13:50-0400 Respiratory rate16 /minОльга Barros Work Phone: 1(868)[address] [place], [place] 4617605-03-2024 13:50-0400 SaO2% (BldA) [Mass fraction]100 %Ольга Barros Work Phone: 1(800)[address] [place], [place] 4617604-02-2024 14:12-0400 Diastolic blood yikgopqm83 mm[Hg]Ольга Barros Work Phone: 1(152)[address] [place], [place] 4617604-02-2024 14:12-0400 Respiratory rate16 /minОльга Barros Work Phone: 1(880)[address] [place], [place] 4617604-02-2024 14:12-0400 Systolic blood uwcjnxat448 mm[Hg]Ольга Barros Work Phone: 1(364)[address] [place], [place] 4617604-02-2024 14:07-0400 Body .34 cmRichmeaghan Barros Work Phone: 1(482)960-[facility]04-02-2024 14:07-0400 Body mass index (BMI) [Ratio]24.5 kg/g8OklekewОльга Barros Work Phone: 0(748)358-[address] [place], [place] 4674604-02-2024 14:07-0400 Body mpzzfuwhysv30.3 [degF]Ольга Barros Work Phone: 1(097)285-[address] [place], [place] 4674604-02-2024 14:07-0400 Body puhhew24.63 kgОльга Barros Work Phone: 7(528)044-[address] [place], [place] 4674604-02-2024 14:07-0400 Heart rate42 /minОльга Barros Work Phone: 5(990)784-[address] [place], [place] 4674604-02-2024 14:07-0400 SaO2% (BldA) [Mass fraction]98 %Ольга Barros Work Phone: 4(159)874-[address] [place], [place] 4674602-07-2024 14:41-0500 Body oevuww453.8 cmChandrikakayleyfred Beatty DO Work Phone: 4(073)352-11[facility]02-07-2024 14:41-0500 Body mass index (BMI) [Ratio]25.54 kg/e7RusckjrBud Camilodon DO Work Phone: 9(551)365-66[facility]02-07-2024 14:41-0500 Body lmrice76.74 kgWianahi Camilodon DO Work Phone: 0(736)893-[address] [place], [place] 8475902-07-2024 14:41-0500 Diastolic blood nombbtnz10 mm[Hg]Bud Beatty DO Work Phone: 0(176)104-[address] [place], [place] 8475902-07-2024 14:41-0500 Heart rate50 /minChandrikakayleyfred Camilodon DO Work Phone: 3(067)673-[address] [place], [place] 8475902-07-2024 14:41-0500 Systolic blood oueubqvu230 mm[Hg]Bud Beatty DO Work Phone: 5(736)622-[address] [place], [place] 8475905-02-2023 15:00-0400 Body mass index (BMI) [Ratio]25.59 kg/m2Karl Oberer Other [employer] Other 05-02-2023 15:00-0400Body izbgewzmagy25.7 [degF]Hayden Oberer Other [employer] Other 05-02-2023 15:00-0400Body ittthc34.24 kgKarl Oberer Other [employer] Other 05-02-2023 15:00-0400Diastolic blood zusvejto22 mm[Hg] Hayden Oberer Other [employer] Other 05-02-2023 15:00-0400Respiratory rate16 /minKarl Oberer Other [employer] Other 05-02-2023 15:00-3338VxS7% (BldA) [Mass fraction]97 % Hayden Oberer Other [employer] Other 05-02-2023 15:00-0400Systolic blood kwzzojzw626 mm[Hg] Hayden Oberer Other [employer] Other 05-02-2023 11:15-0400Body elrlco349.34 cmChristopher Janes Other [employer] Other 05-02-2023 11:15-0400Body mass index (BMI) [Ratio] 25.38 kg/s0Sugyopvekzn Janes Other [employer] Other 05-02-2023 11:15-0400Body wgolzxsljiw03.7 [degF] Christopher Janes Other [employer] Other 05-02-2023 11:15-0400Body uzcqxt90.56 kgChristopher Janes Other [employer] Other 05-02-2023 11:15-0400Diastolic blood gsjgozlh05 mm[Hg] Jacob Janes Other [employer] Other 05-02-2023 11:15-0400Respiratory rate20 /min Jacob Janes Other [employer] Other 05-02-2023 11:15-8328IrQ1% (BldA) [Mass fraction]98 % Jacob Janes Other [employer] Other 05-02-2023 11:15-0400Systolic blood aiaejfpm968 mm[Hg] Jacob Janes Other [employer] Other 03-08-2023 14:15-0500Body egzmvg270.34 cmCameron Diaudiy Other [employer] Other 03-08-2023 14:15-0500Body mass index (BMI) [Ratio] 25.66 kg/l2Vtuuyov Ditty Other [employer] Other 03-08-2023 14:15-0500Body .46 kgCameron Ditty Other [employer] Other 03-08-2023 14:15-0500Diastolic blood mm[Hg] Crescencio Mendez Other [employer] Other 03-08-2023 14:15-0500Respiratory rate18 /minCambrad Mendez Other [facility] Other 03-08-2023 14:15-0500Systolic blood zgozktxx208 mm[Hg] Crescencio Mendez Other [facility] [employer] Other 02-01-2023 11:33-0500Body zhynlt788.8 cmKarl L Oberer Work Phone: mp535-7591RV-Hufkf [facility] DO Work Phone: 1(286) 495-590102-01-2023 11:33-0500Body mass index (BMI) [Ratio] 26.26 kg/m2Karl L Oberer Work Phone: 1(355) 118-8477330-1598JI-Dxals [place] [employer] 250 DO Work Phone: 1(279) 516-233302-01-2023 11:33-0500Body surface area Derived from formula2.01 m2Karl L Oberer Work Phone: mp644-7524NZ-Lawgv [employer] 250 DO Work Phone: 1(646) 629-402302-01-2023 11:33-0500Body jelysn95.01 kgKarl L Oberer Work Phone: mp072-1911CS-Kmngt [place] [employer] 250 DO Work Phone: 1(105) 151-290402-01-2023 11:33-0500Diastolic blood sgmwssba45 mm[Hg] Hayden L Oberer Work Phone: mp164-0781UN-Nnfnh [place] [employer] 250 DO Work Phone: 1(597) 867-765802-01-2023 11:33-0500Heart rate54 /minKarl L Oberer Work Phone: [facility] [employer] 250 DO Work Phone: 1(389) 227-923702-01-2023 11:33-0500Systolic blood gmthcsli175 mm[Hg] Hayden L Oberer Work Phone: 1(981) [phone]-Xrptu [facility] 250 DO Work Phone: 1(539) 477-387111-01-2022 14:15-0400Body yukxoo131.34 cmKarl Oberer Other [employer] Other 11-01-2022 14:15-0400Body mass index (BMI) [Ratio] 25.84 kg/m2Karl [facility]berer Other [facility] 11-01-2022 14:15-0400Body nrdumxsdplk53.2 [degF]Hayden [facility] 11-01-2022 14:15-0400Body xrzxeo16.05 kgKarl Oberer Other [employer] Other 11-01-2022 14:15-0400Diastolic blood mm[Hg] Hayden Oberer Other [employer] Other 11-01-2022 14:15-0400Respiratory rate16 /minKarl Oberer Other [facility] 11-01-2022 14:15-0543FjW5% (BldA) [Mass fraction]98 % Hayden Oberer Other [employer] Other 11-01-2022 14:15-0400Systolic blood vreesajl731 mm[Hg] Hayden Oberer Other [employer] Other 10-25-2022 12:38-0400Body vycnxw216.8 cmKarl L Oberer Work Phone: 1(190)572-494-2722YC-Nsd[address] [place] [address] Work Phone: 1(137) 289-366610-25-2022 12:38-0400Body mass index (BMI) [Ratio]26.4 kg/m2Karl L Oberer Work Phone: 1(538)[address] [place] [address] Work Phone: 1(954) 742-621710-25-2022 12:38-0400Body surface area Derived from formula2.01 m2Juan Franciscol L Oberer Work Phone: 1(032)[address] [place] [address] Work Phone: 1(198) 219-190910-25-2022 12:38-0400Body faepqqbgqrk28.7 [degF]Hayden L Oberer Work Phone: 1(989)[address] [place] [address] Work Phone: 1(971) 829-436210-25-2022 12:38-0400Body yjurwy42.46 kgKarl L Oberer Work Phone: [place]-Rpy[address] [place] [address] Work Phone: 1(410) 886-903110-25-2022 12:38-0400Diastolic blood fnqehtik72 mm[Hg] Hayden L Oberer Work Phone: IT-Rij[address] [place] [address] Work Phone: 1(176) 851-104310-25-2022 12:38-0400Heart rate57 /minKarl L Oberer Work Phone: JT-Ccq[address] [place] [address] Work Phone: 1(912) 399-468010-25-2022 12:38-0400Respiratory rate18 /minKarl L Oberer Work Phone: YZ-Ons[address] [place] [address] Work Phone: 1(617) 550-443910-25-2022 12:38-8189CiV6% (BldA) [Mass fraction]96 % Hayden L Oberer Work Phone: TE-Ujv[address] [place] [address] Work Phone: 1(884) 360-268310-25-2022 12:38-0400Systolic blood skdauers203 mm[Hg] Hayden L Oberer Work Phone: 1(910) [phone][facility] Work Phone: 1(895) 449-608710-04-2022 11:53-0400Body .8 cmKarl L Oberer Work Phone: 1(964) [phone]-Okvqydf-[place] [facility] [place] Work Phone: 1(670) 821-165010-04-2022 11:53-0400Body mass index (BMI) [Ratio] 26.11 kg/m2Karl L Oberer Work Phone: 1(788) [phone]-Xeuxvph-[place] [facility] [place] Work Phone: 1(301) 220-742810-04-2022 11:53-0400Body surface area Derived from formula2.01 m2Karl L Oberer Work Phone: 1(673) 483-8598690-0251AC-Gdpanvh-[place] [facility] [place] Work Phone: 1(233) 862-131910-04-2022 11:53-0400Body pclbvqdlmix90.88 [degF]Hayden L Oberer Work Phone: 1(538) [phone]-Aojzygq-[place] [facility] [place] Work Phone: 1(815) 326-486910-04-2022 11:53-0400Body .56 kgKarl L Oberer Work Phone: 1(179) 661-9082933-2612ER-Uzqfhdb-[place] [facility] [place] Work Phone: 1(207) 378-394010-04-2022 11:53-0400Diastolic blood kndnvuet28 mm[Hg] Hayden L Oberer Work Phone: 1(794) 585-9937574-8555ZC-Kjmxylr-[place] [facility] [place] Work Phone: 1(497) 657-459710-04-2022 11:53-0400Heart rate56 /minKarl L Oberer Work Phone: 1(963) 280-3103083-1681RG-Xalhwzj-[place] [facility] [place] Work Phone: 1(450) 181-778910-04-2022 11:53-0400Respiratory rate18 /minKarl L Oberer Work Phone: 1(704) 329-5075211-5423HZ-Kpzyjrc-[place] [facility] [place] Work Phone: 1(656) 108-648010-04-2022 11:53-1246OhI2% (BldA) [Mass fraction]95 % Hayden Hines Oberer Work Phone: 1(865) [phone]-Tnjfrir-[place] [facility] [place] Work Phone: 1(247) 100-636810-04-2022 11:53-0400Systolic blood oqjxousr238 mm[Hg] Hayden Hines Oberer Work Phone: 1(113) 242-1594318-1065BD-Zetgbdr-[place] [facility] [place] Work Phone: 1(466) 571-341209-06-2022 12:47-0400Body acrqaz810.8 cmHayden Hines Oberer Work Phone: 1(955)360-062-7518[facility] Work Phone: 1(389) 380-283109-06-2022 12:47-0400Body mass index (BMI) [Ratio] 25.83 kg/m2Hayden Hines Oberer Work Phone: 1(903)725-315-1223TE-[facility]qbM[facility] Work Phone: 1(485) 238-210109-06-2022 12:47-0400Body surface area Derived from formula2 m2Hayden Mosquedaerer Work Phone: 1(066)661-581-0703FK-[facility]ocM[facility] Work Phone: 1(626) 412-521209-06-2022 12:47-0400Body vocrxftyuny66.34 [degF]Hayden Hines Oberer Work Phone: 1(260)724-423-5304NV-[facility]uiM[facility] Work Phone: 1(788) 402-314709-06-2022 12:47-0400Body cumavn60.65 kgHayden Hines Oberer Work Phone: 1(581)863-511-7158ZB-RbvM[facility] Work Phone: 1(129) 190-293409-06-2022 12:47-0400Diastolic blood orjaopqa90 mm[Hg] Hayden Hines Oberer Work Phone: GR[facility]riM[facility] Work Phone: 1(609) 108-488509-06-2022 12:47-0400Heart rate50 /minKarl L Oberer Work Phone: 1(196) 313-9973389-6288GU-[facility]tiM[facility] Work Phone: 1(671) 893-652909-06-2022 12:47-0400Respiratory rate16 /minKarl L Oberer Work Phone: 1(644)951-390-1392FL-LfkM[facility] Work Phone: 1(893) 380-275509-06-2022 12:47-2010NzW1% (BldA) [Mass fraction]96 % Hayden L Oberer Work Phone: 1(415)832-360-2892CX-[facility]jM[facility] Work Phone: 1(647) 584-343709-06-2022 12:47-0400Systolic blood xhccvong623 mm[Hg] Hayden L Oberer Work Phone: 1(523)496-877-4732VM-TivM[facility] Work Phone: 1(357) 897-832608-23-2022 12:01-0400Body .8 cmKarl L Oberer Work Phone: 1(941)498-980-1453CC-[facility]vmpkrdBe[facility]ont [facility] Work Phone: 1(154) 614-595708-23-2022 12:01-0400Body mass index (BMI) [Ratio] 26.11 kg/m2Karl L Oberer Work Phone: 1(759)610-308-2023CQ-HhbvjbbBeaumont Hospital Work Phone: 1216)075-190247636-777760-75231764-59-5978 12:01-0400Body surface area Derived from formula2.01 m2Karl L Oberer Work Phone: 1(208)975-925-4642ND-ShkbwaeBeaumont Hospital Work Phone: 1216)326-492856257-887995-89899866-62-4255 12:01-0400Body ycwatftzukj05.8 [degF]Hayden L Oberer Work Phone: 1(808)705-860-2748OJ-FwcmcmpBeaumont Hospital Work Phone: 1216)971-944834658-811194-30511463-94-2022 12:01-0400Body yitamr17.56 kgKarl L Oberer Work Phone: 1(486)912-061-1337ZW-ArevcgmBeaumont Hospital Work Phone: 1(705)547-060135-58197788-34-2597 12:01-0400Diastolic blood dqetwlzu57 mm[Hg] Hayden L Oberer Work Phone: 1(338)112-680-2923WV-SuvubhqBeaumont Hospital Work Phone: 1(113)549-232792-76020260-11-2658 12:01-0400Heart rate48 /minKarl L Oberer Work Phone: 1(952)675-335-7056RD-FbotxovBeaumont Hospital Work Phone: 1(538)170-135610-73864050-60-7571 12:01-0400Respiratory rate16 /minKarl L Oberer Work Phone: PV-Oylgdki[address] [place] [address] Work Phone: 1(959)797-838555-08014380-50-2222 12:01-6298LoS7% (BldA) [Mass fraction]95 % Hayden L Oberer Work Phone: AS-Ljndiao[address] [place] [address] Work Phone: 1(207)835-662746-42384231-32-1824 12:01-0400Systolic blood tkvclwxa088 mm[Hg] Hayden L Oberer Work Phone: IQ-Jhnosij[address] [place] [address] Work Phone: 1(695) 582-761805-03-2022 11:15-0400Body lufske445.34 cmChristopher Janes Other [employer] Other 05-03-2022 11:15-0400Body mass index (BMI) [Ratio] 26.36 kg/u7Tdqyztewxtl Janes Other [employer] Other 05-03-2022 11:15-0400Body xlkoakrgzti25 [degF] Christopher Janes Other [employer] Other 05-03-2022 11:15-0400Body dbokml98.73 kgChristopher Janes Other [employer] Other 05-03-2022 11:15-0400Diastolic blood whclsekv03 mm[Hg] Kever Janes Other [employer] Other 05-03-2022 11:15-0400Respiratory rate20 /min Jacob Isabeldano Other [employer] Other 05-03-2022 11:15-8387PfT8% (BldA) [Mass fraction]100 % Jacob Isabeldano Other [employer] Other 05-03-2022 11:15-0400Systolic blood rmhirsti496 mm[Hg] Jacob Janes Other [employer] Other 05-02-2022 14:45-0400Body .34 cmKarl Oberer Other [employer] Other 05-02-2022 14:45-0400Body mass index (BMI) [Ratio] 26.71 kg/m2Karl Oberer Other [employer] Other 05-02-2022 14:45-0400Body rmxbjibefvy42 [degF]Hayden Oberer Other [employer] Other 05-02-2022 14:45-0400Body .86 kgKarl Oberer Other [employer] Other 05-02-2022 14:45-0400Diastolic blood najacisl28 mm[Hg] Hayden Oberer Other [facility] [employer] Other 05-02-2022 14:45-0400Respiratory rate16 /minKarl Oberer Other [facility] [employer] Other 05-02-2022 14:45-6842XtE6% (BldA) [Mass fraction]98 % Hayden Oberer Other [facility] [employer] Other 05-02-2022 14:45-0400Systolic blood iyswqexv486 mm[Hg] Hayden Oberer Other [facility] [employer] Other 03-09-2022 11:22-0500Body khxmeg696.8 cmKarl L Oberer Work Phone: 1(512) 606-5977193-6342LS-Dhhbw [employer] 250 DO Work Phone: 1(262) 562-282103-09-2022 11:22-0500Body mass index (BMI) [Ratio] 26.83 kg/m2Karl L Oberer Work Phone: 1(786) [phone]-Yhxat [employer] 250 DO Work Phone: 1(395) 412-800803-09-2022 11:22-0500Body surface area Derived from formula2.03 m2Karl L Oberer Work Phone: 1(587) [phone]-Gjhkp [employer] 250 DO Work Phone: 1(913) 964-804303-09-2022 11:22-0500Body ivuatv90.82 kgKarl L Oberer Work Phone: 1(967) [phone]-Hsbpd [employer] 250 DO Work Phone: 1(273) 819-728403-09-2022 11:22-0500Diastolic blood tzbknijo79 mm[Hg] Hayden L Oberer Work Phone: 1(870) [phone]-Qihko [employer] 250 DO Work Phone: 1(923) 334-976203-09-2022 11:22-0500Heart rate56 /minKarl L Oberer Work Phone: 1(133) 484-7374895-5422NT-Bslot [facility] 250 DO Work Phone: 1(295) 881-460903-09-2022 11:22-0500Systolic blood uaxytozj017 mm[Hg] Hayden L Oberer Work Phone: 1(489) 305-3763795-5689ED-Iynqf [facility] 250 DO Work Phone: 1(267) 624-374502-09-2022 11:36-0500Diastolic blood uhgklrjt06 mm[Hg] Hayden L Oberer Work Phone: 1(733) [phone]-Lhqaa [facility] 250 DO Work Phone: 1(271) 125-982502-09-2022 11:36-0500Diastolic blood vidyvgde49 mm[Hg] Hayden L Oberer Work Phone: 1(922) [phone]-Wcsdm [facility] 250 DO Work Phone: 1(487) 749-558602-09-2022 11:36-0500Systolic blood mm[Hg] Hayden L Oberer Work Phone: 1(173) 382-4804089-0425SM-Ykzgo [facility] 250 DO Work Phone: 1(942) 708-658902-09-2022 11:36-0500Systolic blood keexvidg08 mm[Hg] Hayden L Oberer Work Phone: 1(165) [phone]-Xbtdd [facility] 250 DO Work Phone: 1(784) 753-815702-09-2022 11:29-0500Body .8 cmKarl L Oberer Work Phone: 1(897) [phone]-Iaymz [facility] 250 DO Work Phone: 1(481) 743-267502-09-2022 11:29-0500Body mass index (BMI) [Ratio] 26.83 kg/m2Karl L Oberer Work Phone: 1(352) [phone]-Ykqel [facility] 250 DO Work Phone: 1(501) 444-264302-09-2022 11:29-0500Body surface area Derived from formula2.03 m2Karl L Oberer Work Phone: mp002-3017CX-Hkrir [facility] 250 DO Work Phone: 1(443) 106-227502-09-2022 11:29-0500Body ztrepr82.82 kgKarl L Oberer Work Phone: 1(137) [phone]-RmyukSt. [facility] 250 DO Work Phone: 1(946) 969-282502-09-2022 11:29-0500Diastolic blood eyitcztp63 mm[Hg] Haydne L Oberer Work Phone: 1(890) [phone]-BujkkSt. [facility] 250 DO Work Phone: 1(866) 426-828702-09-2022 11:29-0500Heart rate48 /minKarl L Oberer Work Phone: 1(663) [phone]-SplfpSt. Cloud [facility] 250 DO Work Phone: 1(619) 749-546002-09-2022 11:29-0500Systolic blood alrozrhh690 mm[Hg] Hayden L Oberer Work Phone: 1(589) [phone]-PoclzSt. Cloud [facility]-[place] 250 DO Work Phone: 1(342) 176-849902-07-2022 09:25-977070.8 1Karl L Oberer Work Phone: 1(425) [phone]-NukzqSt. Cloud [facility] 250 DO Work Phone: Comment on above:[id number] 10:49-0500Diastolic blood fassamud45 mm[Hg]Hayden L Oberer Work Phone: 1(258) [phone]-CioohSt. Cloud [facility]-[place] 250 DO Work Phone: 1(742) 455-520701-26-2022 10:49-0500Systolic blood bagubwdj909 mm[Hg] Hayden L Oberer Work Phone: 1(894) [phone]-NxagjSt. Cloud [facility] 250 DO Work Phone: 1(522) 316-279101-26-2022 10:14-0500Diastolic blood qcogvdiw94 mm[Hg] Hayden L Oberer Work Phone: 1(113) [phone]-Fenuv [facility] 250 DO Work Phone: 1(490) 777-235101-26-2022 10:14-0500Systolic blood ajpxeldo102 mm[Hg] Hayden L Oberer Work Phone: mp321-8704QA-Awqyb [facility] 250 DO Work Phone: 1(219) 838-479701-26-2022 10:09-0500Body .8 cmKarl L Oberer Work Phone: 1(130) [phone]-Xglma [facility] 250 DO Work Phone: 1(177) 977-124101-26-2022 10:09-0500Body mass index (BMI) [Ratio] 26.98 kg/m2Karl L Oberer Work Phone: mp033-0841RN-Epreg [facility] 250 DO Work Phone: 1(357) 680-377901-26-2022 10:09-0500Body surface area Derived from formula2.03 m2Karl L Oberer Work Phone: 1(630) [phone]-Gegiq [facility] 250 DO Work Phone: 1(246) 457-222801-26-2022 10:09-0500Body ooignf26.28 kgKarl L Oberer Work Phone: 1(245) [phone]-VnhifSt. Cloud [facility] 250 DO Work Phone: 1(459) 703-451101-26-2022 10:09-0500Diastolic blood vefmzwem03 mm[Hg] Hayden L Oberer Work Phone: 1(943) [phone]-Ogrkd [facility] 250 DO Work Phone: 1(713) 310-686601-26-2022 10:09-0500Heart rate44 /minKarl L Oberer Work Phone: mp484-5267AG-Wgwbg [facility] 250 DO Work Phone: 1(961) 149-438401-26-2022 10:09-0500Systolic blood yyrbvicu089 mm[Hg] Hayden L Oberer Work Phone: 1(363) [phone]-Gcjrj [facility] 250 DO Work Phone: 1(299) 874-681912-14-2021 12:00-0500Body kzupdm662.34 cmCdonnellon Ananty Other [employer] Other 12-14-2021 12:00-0500Body mass index (BMI) [Ratio] 25.94 kg/r9NpqqnofCrescencio Romanotty Other [employer] Other 12-14-2021 12:00-0500Body nutppd40.37 kgCambrad Ditty Other [employer] Other 12-14-2021 12:00-0500Diastolic blood uzqknwlm70 mm[Hg] Crescencio Romanotty Other [employer] Other 12-14-2021 12:00-0500Systolic blood engjmptu498 mm[Hg] Crescencio Romanotty Other [employer] Other 11-01-2021 16:00-0400Body rqvjxi489.34 cmKarl Oberer Other [employer] Other 11-01-2021 16:00-0400Body mass index (BMI) [Ratio] 26.02 kg/m2Karl Oberer Other [employer] Other 11-01-2021 16:00-0400Body ifzlchncalr77.6 [degF]Hayden Oberer Other [employer] Other 11-01-2021 16:00-0400Body szklye86.64 kgKarl Oberer Other [employer] Other 11-01-2021 16:00-0400Diastolic blood vggauaoh07 mm[Hg] Hayden Oberer Other [employer] Other 11-01-2021 16:00-0400Respiratory rate18 /minKarl Oberer Other [employer] Other 11-01-2021 16:00-0012LoV4% (BldA) [Mass fraction]97 % Hayden Oberer Other [employer] Other 11-01-2021 16:00-0400Systolic blood whdndayn015 mm[Hg] Hayden Oberer Other [employer] Other 1944 00:00-0400>na<Julita Camargoept. of Dermatology Encounters Encounter DateEncounter TypeCare ProviderFacilityStart: 07-16-2025 End: 27-66-5586Fiuymh flowsEmory Cordova MD Work Phone: [facility] DermatologyStart: 07-16-2025 End: 54-73-8265Fufqdy flowsEmory Cordova MD Work Phone: [facility]ermatologyStart: 07-16-2025 End: 38-73-3487jyevgednudVBFUZ A PETITTINot AvailableStart: 07-16-2025 End: 59-31-5441Aswrse outpatient visit 15 minutesEmellyn Cordova MD Work Phone: [facility] DermatologyComment on above:Seborrheic keratosis (Primary Dx); Actinic keratosis; Seborrheic keratosis, inflamed; Neoplasm of unspecified behavior of bone, soft tissue, and skin; History of basal cell carcinoma (BCC); History of SCC (squamous cell carcinoma) of skin; LentiginesStart: 07-07-2025 End: 20-72-8366pqzymulsiiCpxp Oberer DO Work Phone: [facility] Work Phone: Start: 07-07-2025 End: 54-79-5120Dnsgkxe encounter procedureJuan Franciscorema Adams DO-[facility] Work Phone: Start: 06-20-2025 End: 33-14-7739Ikjego flowsheetAnthony S Rusher DPM Work Phone: no[facility]Start: 06-20-2025 End: 54-83-2082Zgufpn flowsheetAnthony S Rusher DPM Work Phone: no[facility]ryStart: 06-20-2025 End: 63-89-2547ffdputganuYUAJDPE S RUSHERNot AvailableStart: 06-20-2025 End: 37-11-0025Vepxbx outpatient new 45 minutesAnthony S Rusher DPM Work Phone: noms [facility] PodiatryComment on above:Neuritis (Primary Dx); Neuropathy, idiopathic; Left foot painStart: 06-17-2025 End: 16-59-0039iwysuorrfeIwrz Oberer Work Phone: [facility] Work Phone: Start: 06-17-2025 End: 34-86-6808Gcqldfo encounter procedureHayden Rema Adams DO-[facility] Bill Work Phone: Start: 05-22-2025 End: 20-17-6538gkrfozilpxIGNZGFYPrattville [facility] AmbulatoryStart: 05-22-2025 End: 07-31-3014Bicfln outpatient visit 25 minutesVtanahi Beatty DO Work Phone: uh [facility] [place] on above:Atherosclerosis of coronary artery of [place] heart without angina pectoris, unspecified vessel or lesion type; Hx of percutaneous transluminal coronary angioplasty; Ischemic cardiomyopathy; Malignant melanoma of back (Multi); History of coronary artery bypass graft; Dizziness; BMI 24.0-24.9, adult; Former smoker; Hyperlipidemia, unspecified hyperlipidemia typeStart: 95-51-0065Wpz-patient / Non-visitCrescencio Mendez MD-[facility] Work Phone: Start: 05-15-2025 End: 01-91-9917slswnfkiivOrfa Oberer DO Work Phone: [facility] Work Phone: Start: 05-15-2025 End: 53-86-2746Ofxkbho encounter procedureCrescencio Mendez MD-[facility] Work Phone: Start: 03-27-2025 End: 25-08-1142Onlmzunajma Cordova MD Work Phone: noms [facility] DERMStart: 03-27-2025 End: 32-12-8900Kjouyo Chun Cordova MD Work Phone: n[facility] DERMStart: 03-27-2025 End: 52-98-6608znsdrvydcjMQNFP A PETITTINot AvailableStart: 03-27-2025 End: 25-24-9329Zzslqc follow up visit related to original Oscar Cordova MD Work Phone: noms [facility] DERMComment on above:Encounter for removal of sutures (Primary Dx)Start: 03-18-2025 End: 53-50-7455jtmiylrrqjUdrbngo Dwight Work Phone: [facility] Work Phone: Start: 03-18-2025 End: 95-40-6210Glabfsk encounter procedureRichmeaghan Barros Work Phone: [facility] Bill Work Phone: Start: 03-12-2025 End: 10-28-7066hfjhbdymuuPBVKB A PETITTINot AvailableStart: 03-12-2025 End: 74-97-2262Tkoryfnajma Cordova MD Work Phone: n[facility] DERMStart: 03-12-2025 End: 48-17-3050Fvpipr flowsheetEmellyn Cordova MD Work Phone: n[facility] DERMStart: 03-12-2025 End: 18-31-2657Qqyvowf encounter procedureEmellyn Cordova MD Work Phone: noms [facility] DERMComment on above: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)Start: 14-29-3074Xyw-patient / Non-visitRichmeaghan De La Oght Work Phone: [facility] Work Phone: Start: 02-12-2025 End: 99-03-2920yyzfjwmjnuPjzwylp Papo Work Phone: [facility] Work Phone: Start: 02-12-2025 End: 04-66-0831Rdjyyhz encounter procedureRichmeaghan De La Oght Work Phone: [facility] Work Phone: Start: 02-11-2025 End: 91-44-8163Eiifvr outpatient visit 15 Ayush SANDERS Work Phone: noms SWS DERMComment on above:Capillary angioma (Primary Dx); Seborrheic keratosis; Actinic keratosis; Lentigo simplex; History of basal cell carcinoma (BCC); History of SCC (squamous cell carcinoma) of skin; Personal history of malignant melanoma of skin; Neoplasm of unspecified behavior of bone, soft tissue, and skinStart: 02-11-2025 End: 59-37-5895glhbsinabsGLMUT NORTHEIMNot AvailableStart: 09-24-2024 End: 22-31-5850iidgomoadeQkve Oberer DO Work Phone: [facility] Work Phone: Start: 09-24-2024 End: 19-09-4573Qlwldnz encounter procedureKarl Oberer DO Work Phone: [facility] Family Medicine [place] Work Phone: Start: 36-43-5040Cxc-patient / Non-visitKarl Oberer DO Work Phone: [facility] Professional Co Work Phone: Start: 53-59-1609Ooj-patient / Non-visitDO Hayden Oberer Work Phone: [facility] Gastroenterology Work Phone: Start: 08-26-2024 End: 69-82-9676Cavfzljwx to same day surgery centerDO Hayden Oberer Work Phone: [facility] Work Phone: Start: 08-26-2024 End: 21-82-1494cyfhgtybaiSH Hayden Oberer Work Phone: [facility] Work Phone: Start: 08-20-2024 End: 44-73-8432Emvojagwfg hospital visit by Gloria Davis Echo/Vasc Room 2B[facility] County HospitalComment on above:Atherosclerosis of coronary artery of [place] heart without angina pectoris, unspecified vessel or lesion type; History of coronary artery bypass graft; Ischemic cardiomyopathy; Hyperlipidemia, unspecified hyperlipidemia type; DizzinessStart: 08-20-2024 End: 26-26-5440ozrfovkqliRWPPZOFCleveland Clinic Lutheran Hospitaltart: 07-31-2024 End: 51-80-8645chvnrukofeLewubwj Papo Work Phone: [facility] Work Phone: Start: 07-31-2024 End: 26-38-4906Tgtobep encounter procedureRichard Papo Work Phone: [facility] Gastroenterology Work Phone: Start: 07-16-2024 End: 08-50-4535Vzifzw outpatient visit 25 Tim Beatty DO Work Phone: uh AUTOFACTlegacy salmon creek hospitalComment on above:Atherosclerosis of coronary artery of [place] heart without angina pectoris, unspecified vessel or lesion type; Beta-ezequiel intolerance; History of coronary artery bypass graft; Former smoker; BMI 24.0-24.9, adult; Ischemic cardiomyopathy; Essential hypertension; Hyperlipidemia, unspecified hyperlipidemia type; DizzinessStart: 07-16-2024 End: 65-43-0176lxhsabgxmlMXZUTUDMountain Lakes Medical Center AmbulatoryStart: 04-02-2024 End: 69-91-6866Cetgjg outpatient visit 25 Julien Sonny Beatty DO Work Phone: uh [facility]inghamComment on above:Atherosclerosis of coronary artery of [place] heart without angina pectoris, unspecified vessel or lesion type; Ischemic cardiomyopathy; CHF (NYHA class II, ACC/AHA stage C) (Multi); Former smoker; Overweight (BMI 25.0-29.9); Dizziness; Bradycardia; Blurred vision; Chronic obstructive pulmonary disease, unspecified COPD type (Multi)Start: 03-15-2024 End: 72-49-4964rgtgpqyfxcWjeozsq Papo Work Phone: [facility] Work Phone: Start: 03-15-2024 End: 60-45-2265Nsqxakq encounter procedureRichmeaghan Papo Work Phone: [facility] Work Phone: Start: 68-56-4704Ira-patient / Non-visitRichmeaghan Papo Work Phone: [facility] Work Phone: Start: 02-13-2024 End: 37-29-2113jyghskeqzaNyhuvff Papo Work Phone: [facility] Work Phone: Start: 02-13-2024 End: 47-80-3226Zydvmgc encounter procedureRichmeaghan Tejedat Work Phone: [facility] Family Medicine [place] Work Phone: Start: 33-61-8773Udu-patient / Non-visitОльга Barros Work Phone: [facility] Professional [employer] Work Phone: Start: 01-09-2024 End: 94-56-4425Wuilvmmals hospital visit by physicianSiobhan Urban Wa 1Bullock County HospitalComment on above:Ischemic cardiomyopathy; CHF (NYHA class II, ACC/AHA stage C) (CMS/HCC)Start: 01-09-2024 End: 65-30-8926ohxnitrjqxBLHZFRBCleveland Clinic Lutheran Hospitaltart: 12-20-2023 End: 65-74-7647Wldtjr outpatient visit 40 minutesBeverly [facility] Work Phone: [facility] CenterComment on above:Atherosclerosis of coronary artery of [place] heart without angina pectoris, unspecified vessel or lesion type; Status post angioplasty; Ischemic cardiomyopathy; CHF (NYHA class II, ACC/AHA stage C) (CMS/HCC); History of coronary artery bypass graft; Essential hypertension; Hyperlipidemia, unspecified hyperlipidemia type; Bradycardia; Former smokerStart: 10-20-2023 End: 88-66-1200rwenpbtbrpMvys Oberer Other [employer] Space Other Start: 93-36-6310Jrvqlzkyy encounterKarl ObererFPG Family Medicine [place]kyStart: 10-17-2023 End: 19-33-6231ukelgdlnnqXzwo Oberer Other noSilecs Other start: 20-41-0927Oyrsokias encounterKarl ObererFPG Family Medicine [place]kyStart: 10-02-2023 End: 44-91-5940dzppvfjoisZxtg Oberer Other [employer] Other Start: 20-97-5080Ibsnwepkj encounterKarl ObererFPG Family Medicine [place]kyStart: 09-13-2023 End: 73-74-9620qpwthxcdouPgpt Oberer Other [employer] Function Space Other Start: 01-13-5277Eadzobpbu encounterKarl ObererFPG Family Medicine [place]kyStart: 05-01-2023 End: 27-97-9878hfbfhqebyoVkek Oberer Other [place] [employer] Other Start: 40-75-9176Zuvtgaiki encounterKarl ObererF Family Medicine Ayush AveStart: 03-14-2023 End: 64-32-9175jrgenowxcuTuhbhitjdds Janes Other [facility] Function Space Other Start: 41-71-3371Jjzoslcoo for general adult medical examination without abnormal findingsKarl ObererF Family Medicine [place] Start: 60-80-7425Wdemuc outpatient visit 15 minutesChristopher AvendanoFPG Pulmonary DiseaseStart: 87-71-6375Ixsjjoi encounter procedureKarl ObererFPG Family Medicine [place]kyStart: 03-10-2023 End: 14-72-6049lrfukpujbgGP HAYDEN OBERERFacility:U8Oqrqn: 01-18-2023 End: 97-56-2200vjakvqcmaoJghruvn Ditty Other [facility] Function Space Other Start: 09-84-1369Wqzrdxp encounter procedureCameron DittyFPG GastroenterologyStart: 88-56-5493xcmrpakxaqOlfa Joey Oberer Facility:27[address]Cmpdz: 29-89-9621Rvgnkm outpatient visit 25 minutesKarl L Oberer Work Phone: [phone]-IpgwzSt. Cloud [facility]-[place] 250 DO Work Phone: Start: 09-30-2022 End: 04-70-6733ubbozsspkmKdvcdas Ditty Other noh Function Space Other Start: 01-41-2340Tjxsntibk encounterCameron DittyFPG GastroenterologyStart: 09-29-2022 End: 27-66-3980kamkjjqoioJsfpvyr Ditty Other H[employer] MediaGroupb[facility] Function Space Other Start: 12-37-7970Guksdqzcg encounterCameron DittyFPG GastroenterologyStart: 09-19-2022 End: 67-81-3612kdnjbqpynfPree Oberer Other [place] [employer] Other Start: 15-03-6505Hcnonbtnd encounterKarl ObererFPG [facility] AveStart: 09-13-2022 End: 63-00-8404ielklmpzpvYmbz Oberer Other [place] [employer] Other Start: 79-82-2916Wwhldt outpatient visit 25 minutes Hayden ObererFWinchendon Hospital Medicine Sand[place]kyStart: 06-82-2090Ibgedc follow up visit related to original pxKarl L Oberer Work Phone: [phone]-[facility]ymPl[facility] 100 Work Phone: Start: 74-40-3173hhlrftvoozNfxm Joey Oberer Facility:[id number]: 09-02-2022 End: 77-13-8444iqhacbvocwFX HAYDEN OBERERFacility:Y4Alwab: 44-51-6959eckckrfvwhXc. ОЛЬГА BROWN JrFacility:9324Start: 90-97-2285Szvptgz encounter procedureKarl L Oberer Work Phone: [phone]-Lfbinmz-[place] MOB02 [place] Work Phone: Start: 29-08-8161cgesydgvbbNc. ОЛЬГА BROWN JrFacility:029[address]Wlfjy: 05-87-3041Zlkpau follow up visit related to original px Hayden L Oberer Work Phone: mp-[facility] Work Phone: Start: 06-00-7531vixxoetnzfGw. ОЛЬГА YOLANDA GAMINON JrFacility:438[address]Bowaj: 32-24-8811Ke RenewalJuan Franciscol L Oberer Work Phone: [phone]-LhxgfSwift County Benson Health ServicesBill 250 DO Work Phone: Start: 43-36-1059Vgkhd UpdateKarl L Oberer Work Phone: [phone]-EhkhauxMarlette Regional Hospital Work Phone: start: 07-07-2022 End: 10-15-8546ilwamwwvhlBk. Hayden Cook ObererFacility:9537Start: 07-05-2022 ambulatoryThomas Abhishekmao JuvenalFacility:[address]Snmry: 78-58-1254Xvlbgcntv for preprocedural cardiovascular examinationWaldo Hospital Start: 50-03-1421Jvjwuhfal for preprocedural laboratory examinationShriners Hospitals for Childrentart: 81-79-3729UmlqJulita Gaspar. of Dermatology Start: 36-55-9739JXRAXMyzu L Oberer Work Phone: [phone]-ZgegskgMarlette Regional Hospital Work Phone: start: 65-38-1591Dxwzh UpdateJuan Franciscol L Oberer Work Phone: [phone]-NssvkymMarlette Regional Hospital Work Phone: start: 05-83-9380swgnxkzfzhOh. Desire Murcia Facility:9324Start: 90-20-6384Ef RenewalKarl L Oberer Work Phone: [phone]-DkscjSwift County Benson Health ServicesFall River 250 DO Work Phone: Start: 03-15-2022 End: 30-77-7344kqxsdmowqtYksmnwhjdmx Janes Other [facility] Function Space Other Start: 16-08-0974Dduowv outpatient visit 15 minutes Jacob Geller Pulmonary DiseaseStart: 03-14-2022 End: 57-80-5164aqispphybmDmui Oberer Other nort Function Space Other Start: 25-92-2550Xxfzmc outpatient visit 40 minutes Hayden ObererFPG Family Medicine [facility] Medical CenteryStart: 33-51-7938lpscgvarvrHrcn Joey ObererFacility:66[address]Zxofy: 63-96-3844Bqhvka outpatient visit 10 minutesKarl L Oberer Work Phone: [phone]-Xfbig [facility] 250 DO Work Phone: Start: 64-50-9028rmrkjzygzoJgli Joey Oberer Facility:158[address]Gqiem: 80-54-7009Fzrdmui encounter procedureKarl L Oberer Work Phone: [phone]-Atyap [facility] 250 DO Work Phone: Start: 08-55-3650caogsvglduHyom Joey Oberer Facility:899[address]Wwzuv: 11-17-7586Iqrwkg outpatient visit 15 minutesKarl L Oberer Work Phone: [phone]-Wujbw [facility] 250 DO Work Phone: Start: 95-47-0658Peeargw encounter procedureKarl L Oberer Work Phone: [phone]-Mzapd [facility] 250 DO Work Phone: Start: 80-96-3740qionytcmqoAxub Joey Oberer Facility:38[address]Zjwfi: 11-19-2021 End: 74-99-2385wrjomyzhkiZzza Oberer Other [facility] Function Space Other Start: 91-45-0171Ukgngqjgc encounterKarl ObererFPG Family Medicine [address] AveStart: 10-26-2021 End: 86-97-6038nmdssgmjvzRahujkx Ditty Other [employer] Other Start: 70-04-5655Hxjaaro encounter procedureCameron DittyFPG GastroenterologyStart: 10-25-2021 End: 81-65-5368kksfthcbetLkcv Oberer Other [employer] Function Space Other Start: 47-99-7872Zbpjbwrds encounterKarl [facility] Family Medicine [address] AveStart: 09-20-2021 End: 60-14-8543flfcymxoogWhjjael Ditty Other [facility] Function Space Other Start: 81-71-3104Qtierdxit encounterCameron DittyFPG GastroenterologyStart: 09-13-2021 End: 01-99-5894ddeifdjzzdJkmf Oberer Other [facility] Function Space Other Start: 65-99-6562Qeyrio outpatient visit 25 minutes Hayden [facility] Family Medicine [address] AveStart: 02-52-4296Ajupuegxol and management of kavonRichard Papo Work Phone: [facility]4 [place] [facility] Work Phone: Procedures DateProcedureProcedure DetailPerforming ClinicianStart: 07-16-2025 End: 83-18-6367GBNU / NAIL BIOPSYEmellyn Cordova MD Work Phone: Start: 07-16-2025 End: 14-50-7224RYGZVDBFBXM SKIN LESIONEmellyn Cordova MD Work Phone: Start: 49-78-1031Dohqzkw of percutaneous transluminal coronary angioplastyHx of percutaneous transluminal coronary angioplastyBud Beatty DO Work Phone: Start: 77-11-3327BUNU REPAIREmellyn Cordova MD Work Phone: Start: 36-22-8302MACF EXCISIONEmellyn Cordova MD Work Phone: Start: 98-32-1448NCBN / NAIL BIOPSYRylehermilo [facility] MARILYN Work Phone: Start: 06-56-1491WCQWXFTJOHW SKIN LESIONRylee [facility] PA Work Phone: Start: 08-67-7693Ftjcwuwf fiberoptic sigmoidoscopyDO Hayden Oberer Work Phone: Start: 15-38-4928EA HEART BLOOD POOL EJECTION FRACTION WALL MOTION (MUGA)BUD BEATTYStart: 45-16-6197Nemk blood pool gated planar 1 study rest/stressBud Beatty DO Work Phone: Start: 48-50-5911Kiswtbz of coronary artery bypass graftingHistory of coronary artery bypass graftShanellem Rogerio DO Work Phone: Start: 35-01-3098Paad LarsonAppendectomyKarl L Oberer Work Phone: Coronary artery bypass graftKarl L Oberer Work Phone: Excision of melanomaKarl L Oberer Work Phone: History of coronary artery bypass graftingHistory of coronary artery bypass graftKarl L Oberer Work Phone: History of coronary artery bypass graftingHistory of coronary artery bypass graftBud Beatty DO Work Phone: History of coronary artery bypass graftingHistory of coronary artery bypass graftEly 2History of coronary artery bypass grafting History of coronary artery bypass graftBud S Rogerio DO Work Phone: History of coronary artery bypass graftingHistory of coronary artery bypass graftWikayleyiam S Rogerio DO Work Phone: Total colonoscopyKarl L Oberer Work Phone: Plan of Treatment DateCare ActivityDetailAuthorStart: 05-27-2026 End: 45-42-4960Fvcuzhl encounter vrufonvwo11/15/2026 11:10 AM EDT Office Visit [facility] [address] [place] [address] Bud Beatty DO [address] [place] [address] [facility] CenterStart: 02-11-2026 End: 31-80-0956Wdnbduu encounter procedureNOKS SWS DERMStart: 10-22-2025 End: 48-66-7765Svafulo encounter tlisrodxc87/10/2025 2:00 PM EST [facility] [address] [place] [address] Job Helm, DPM [address] [place] [address] NOMSonny [facility] PodiatryStart: 10-21-2025 End: 99-01-8441Rzmthvo encounter sjcnxozwn38/09/2025 1:50 PM EST Office Visit [facility] [address] [place] [address] Jennifer Cordova MD [address] [place] [address] NOMSonny Davis DermatologyStart: 07-16-2025 End: 80-81-3828Oepglhd encounter /03/2025 1:30 PM EDT Office Visit [facility] [place] [facility] [address] [place] [address] Jennifer Cordova MD [address] [place] [address] NOMSonny Davis DermatologyStart: 07-14-2025 Influenza vaccinationNOKS HealthcareStart: 06-11-2025 End: 12-11-0834Nmwfjfc encounter oxffkamqq29/30/2025 2:15 PM EDT Office Visit [facility] [address] [place] [address] Jennifer Cordova MD [address] [place] [address] NOMS [facility] DERMStart: 04-08-2025 End: 76-25-8666Elbykng encounter tahjsuglg86/27/2025 1:40 PM EDT Office Visit [place] [address] [place] [address] Bud Beatty DO [address] [place] [address] [facility]: 03-26-2025 End: 68-71-9161Kvyemvl encounter qyhrbezbm11/14/2025 1:45 PM EDT Office Visit [facility]OMS [facility] [address] [place] [address] Jennifer Cordova MD [address] [place] [address] [facility]HERR[facility] DERMStart: 42-39-0905XsmiqocfuKettering Health Main Campustart: 08-20-2024 End: 09-95-3838Zyhznnx encounter jrzkisytq43/08/2024 2:30 PM EDT Appointment [place] [address] [place] [address] [facility]Start: 07-16-2024 End: 57-62-5550NH.doppler Carotid arteries - bilateralVascular US Carotid Artery Duplex Bilateral Vascular Ultrasound Routine Atherosclerosis of coronaryartery of [place] heart without angina pectoris, unspecified vessel or lesion type History of coronary artery bypass graft Ischemic cardiomyopathy Hyperlipidemia, unspecified hyperlipidemia type Dizziness Expected: 07/16/2024 (Approximate), Expires: 07/16/2026[facility] Service Area Work Phone: Comment on above:Expected: 07/16/2024 (Approximate), Expires: 07/16/2026Start: 07-16-2024 End: 98-02-6737Cxhtjqn encounter unimfkcwr39/03/2024 11:00 AM EDT Office Visit [address] [place] [address] Bud Beatty, DO [address] [place] [address] [facility]: 61-49-7980DBLMH-19 Vaccine ( season)COVID-19 Vaccine ( season)[facility]: 36-45-3919PVYZI-19 Vaccine ()COVID-19 Vaccine ()[facility]: 13-56-2021Ucdpunzpn vaccinationSelect Medical [facility]: 04-18-2024 End: 39-49-3378Xtaxuduuchwq / ancillary services pvbandmpzj91/06/2024 10:00 AM EDT Ancillary Procedure [address] [address] SIEn[facility]: 04-16-2024 End: 39-11-7634Budwew monitor studyHolter Or Event Sugar Presser Cardiac Services Routine Dizziness Bradycardia Expected: 04/16/2024(Approximate), Expires: 04/02/2025[facility] Service Area Work Phone: Comment on above:Expected: 04/16/2024 (Approximate), Expires: 04/02/2025Start: 04-02-2024 End: 60-36-6602Bwmsiyk encounter tazqbowmn01/21/2024 1:40 PM EDT Office Visit [address] [place] [address] Bud Beatty, DO [address] [facility] [address] [place] [address] [facility]: 01-19-2024 End: 70-69-4016Kzghjzssusxj / ancillary services pshkfqbgvy12/08/2024 1:00 PM EST Ancillary Procedure [facility] [address] [address] [place] [address] [facility] CenterStart: 01-09-2024 End: 42-85-2741Uucxdem encounter procedure Jennifer [facility]inghamStart: 12-20-2023 End: 80-45-0593Feabb metabolic 2000 panel - Serum or PlasmaBasic Metabolic Panel Lab Routine Ischemic cardiomyopathy CHF (NYHA class II, ACC/AHA stage C) (CMS/ HCC) Essential hypertension Expected: 12/20/2023 (Approximate), Expires: 12/20/2024[facility] Work Phone: Comment on above:Expected: 12/20/2023 (Approximate), Expires: 12/20/2024Start: 12-20-2023 End: 22-64-1764Dqqqsk monitor studyHolter Or Event Sugar Presser Cardiac Services Routine Bradycardia Expected: 12/20/2023, Expires:12/20/2024[facility] Service Area Work Phone: Comment on above:Expected: 12/20/2023, Expires: 12/20/2024Start: 12-20-2023 End: 73-40-7808Dxiwmznihct peptide B [Mass/volume] in BloodB-Type Natriuretic Peptide Lab Routine Ischemic cardiomyopathy CHF (NYHA class II, ACC/AHA stage C) (CMS/HCC) Essential hypertension Expected: 12/20/2023 (Approximate), Expires: 12/20/2024[facility] Work Phone: Comment on above:Expected: 12/20/2023 (Approximate), Expires: 12/20/2024Start: 12-20-2023 End: 04-70-1181HC Heart Wall motion and Ejection fractionNM heart blood pool ejection fraction wall motion (MUGA) Imaging Routine Ischemic cardiomyopathy CHF (NYHA class II, ACC/AHA stage C) (CMS/HCC) Expected: 12/20/2023, Expires: 12/20/2024[facility] Work Phone: Comment on above:Expected: 12/20/2023, Expires: 12/20/2024Start: 36-87-6920XLG, Provider: Bud Beatty, Status: Pen, Time: 10:50 AMFUV, Provider: Bud Beatty, Status: Pen, Time: 10:50 AMMP-[facility] Centerusky 250 DO Work Phone: Start: 14-27-2311DOOXL-19 Vaccine () COVID-19 Vaccine ()[facility]: 37-15-7402Joifbjmpp vaccinationInfluenza Vaccine (#1)[facility]: 77-20-3155Djvnduiqox measurementCreatinine LevelUnKettering Health Miamisburg: 98-20-8399Awjfphhm mellitus screeningDiabetes ScreeningSelect Medical Specialty [facility]: 58-68-6546Ugzjaaupf measurement Potassium LevelUnKettering Health Miamisburg: 23-33-6923IND, Provider: Bud Beatyt, Status: Pen, Time: 11:20 AMFUV, Provider: Bud Beatty, Status: Pen, Time: 11:20 AMO[facility] 250 DO Work Phone: Start: 98-28-5713SAX, Provider: Ольга Brown, Status: Pen, Time: 12:40 PMFUV, Provider: Ольга Brown, Status: Pen, Time: 12:40 PM XC-Ruisioz-Vquu MOB02 [place] Work Phone: Start: 83-57-2046KCX, Provider: Ольга Brown, Status: Pen, Time: 12:20 PMPOV, Provider: Ольга Brown, Status: Pen, Time: 12:20 PM- [facility] ServicesBill 250 DO Work Phone: Start: 15-12-6951QKW, Provider: Ольга Brown, Status: Pen, Time: 11:20 AMPOV, Provider: Ольга Brown, Status: Pen, Time: 11:20 AM BQ-Gdzcrhn-SybzjxyMymichigan Medical [facility] Work Phone: start: 26-28-1471VKONSMD, Provider: Ольга Brown, Status: Pen, Time: 4:00 PMSURGHILLCREST [facility], Provider: Ольга Brown, Status: Pen, Time: 4:00 KONK-Dcniwqj-YyiqkofMarlette Regional Hospital Work Phone: start: 88-94-4812GYF, Provider: Ольга Brown, Status: Pen, Time: 12:00 PMNPV, Provider: Ольга Brown, Status: Pen, Time: 12:00 PM XG-Qcskrfj-EcrajluMarlette Regional Hospital Work Phone: start: 16-49-0597AVE, Provider: Yaritza Beard, Status: Pen, Time: 1:00 PMFUV, Provider: Yaritza Beard, Status: Pen, Time: 1:00 PMMP-[facility] 250 DO Work Phone: Start: 77-60-8167WCU, Provider: Yaritza Beard, Status: Pen, Time: 11:00 AMFUV, Provider: Yaritza Beard, Status: Pen, Time: 11:00 AM-[facility]-[place] 250 DO Work Phone: Start: 63-23-5342JHTGPK MON, Provider: DANIEL WOLF RELAY ASSOCIATE 1,[id number], Status: Pen, Time: 11:00 [facility], Provider: DANIEL WOLF RELAY ASSOCIATE 1,[id number], Status: Pen, Time: 11:00 [facility] 250 DO Work Phone: Start: 43-85-4813ICS High Risk: (Elderly (60+) or Population) (1 - 1-dose 75+ series)RSV High Risk: (Elderly (60+) or Population) (1 - 1-dose 75+ series)[facility] Start: 17-82-3756ZIG patients and/or patients aged 60+ years (1 - 1- dose 60+ series)RSV patients and/or patients aged 60+ years (1 - 1-dose 60+ series)[facility]: 93-96-1885Bawflt Vaccines (1 of 2)Zoster Vaccines (1 of 2)[facility]: 1966 DTaP/Tdap/Td Vaccines (1 - Tdap)DTaP/Tdap/Td Vaccines (1 - Tdap)[facility]: 79-38-5006Oxvqxxfh mellitus screeningDiabetes ScreeningUnKettering Health Miamisburg: 27-98-8465Igfwtvlbf C screening Hepatitis C ScreeningUnKettering Health Miamisburg: 1945 Examination of skinDerm Melanoma Skin CheckUnOhio State Harding Hospital Start: 70-29-7751EsxdvsjeefrblmbpJkosluwobvboifJvcfytdygu [facility] Start: 69-39-1900Slfnc panelLipid PanelUnKettering Health Miamisburg: 1944Medicare Annual Wellness VisitMedicare Annual Wellness Visit (AWV) [facility]: 33-34-3938Rotc Cancer ScreeningSkin Cancer ScreeningUnOhio State Harding HospitalDermatopathology exam Dermatopathology exam Pathology and Cytology Timed Neoplasm of unspecified behavior of bone, soft tissue, and skin Release Upon Ordering for 1 Occurrences starting 02/11/2025[facility] [employer] Work Phone: [phone] on above:Release Upon Ordering for 1 Occurrences starting 02/11/2025Dermatopathology examDermatopathology exam Pathology and Cytology Timed 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) Rele ase Upon Ordering for 1 Occurrences starting 03/12/2025[facility] [employer] Work Phone: [phone] on above:Release Upon Ordering for 1 Occurrences starting 03/12/2025Dermatopathology examDermatopathology exam Pathology and Cytology Timed Neoplasm of unspecified behavior of bone, soft ti ssue, and skin Release Upon Ordering for 1 Occurrences starting 07/16/2025[facility] [employer] Work Phone: comwdgw on above:Release Upon Ordering for 1 Occurrences starting 07/16/2025[facility] function [facility]Park[facility] Work Phone: End: [id number].doppler Carotid arteries - [facility] Work Phone: Comment on above:Once for 1 Occurrences starting 08/20/2024 until 08/20/2024[facility] Immunizations Immunization DateImmunizationNotesCare BsxjjpjqCnndyiep09-18-9535IRWFO-28 Vaccine Pfizer - Documentation Purposes OnlyKarl Oberer Other [address] [place], [place] 0256403-10-2021COVID-19 Vaccine Pfizer - Documentation Purposes OnlyKarl Oberer Other [address] [place], [place] [address]11-01-2019influenza, injectable, quadrivalent, preservative freeKarl Oberer Other [facility]11-01-2019influenza virus vaccine, unspecified formulationBud Beatty DO Work Phone: [facility] Work Phone: [phone]vxvoxy virus vaccine, unspecified formulationKarl L Oberer Work Phone: [phone]-[facility]quWad[facility] 398 DO Work Phone: [phone]t, seasonal, injectableKarl Oberer Other [facility]10-01-2018influenza virus vaccine, unspecified formulationKarl L Oberer Work Phone: [phone]-CfirmWadena Clinic 250 DO Work Phone: [phone]floab conjugate vaccine, 13 valent Hayden Oberer Other [employer] Other [id number], injectable, quadrivalent, preservative freeKarl Oberer Other [facility]03-04-2016 pneumococcal polysaccharide vaccine, 23 valentKarl Oberer Other [employer] Other [id number], seasonal, injectableKarl Oberer Other [facility]01-01-2015 pneumococcal polysaccharide vaccine, 23 valentKarl L Oberer Work Phone: [phone]-[facility]cpS[facility] 250 DO Work Phone: [phone]) [phone]srficl, seasonal, injectableKarl Oberer Other [facility]10-15-2012influenza, seasonal, injectableKarl Oberer Other [facility]10-20-2010influenza, seasonal, injectableKarl Oberer Other [facility]11-10-2005influenza, seasonal, injectableKarl L Oberer Work Phone: [phone]-DdfkoSauk Centre Hospital 250 DO Work Phone: [phone]qctvraa conjugate vaccine, 7 valent Bud Rogerio DO Work Phone: [facility]1944 pneumococcal conjugate vaccine, 7 valentEmma LarsonDept. of Dermatology NEGATED: Highlighted row has not occurred!09-13-2021 influenza, seasonal, injectablePatient ObjectionKarl Oberer Other [facility] HospitalNEGATED: Highlighted row has not occurred!50-45-2569scicjvqlp, seasonal, injectablePatient Objection Hayden Oberer Other [facility] Payers DatePayer CategoryPayerPolicy [id number] 2023MedicareUNITED HEALTHCARE MEDICARE UNITED HE[employer] MEDICARE [id number] 2023-Present [address] [place], [place] [id number] 2023Medicare (Managed Care)[id number] 2023Medicare [id number] [id number] [id number] 1960Private Health [id number] 2.0.1.066939.[id number] 2.0.1.659018.3.579.2.48351-58-2158Emtfubq [id number] 2.0.1.390894.3.57[id number] 2.0.1.562137.3.57[id number] 2.0.1.466687.3.57[id number] 2.0.1.245223.3.57[id number] 2.0.1.468990.3.57[id number] 2.840.1.747896.3.57[id number] 2.840.1.459317.3.579.[id number] 2.840.1.881310.3.579.[id number] 2.16840.1.141461.3.57[id number] 2.16840.1.383535.3.57[id number] 2.840.1.782458.3.579.[id number] 2.16840.1.928485.3.57[id number] 2.0.1.555869.3.579.2.682162-52-7546Wnjbcei2104152 2..1.259241.3.579.2.59451-32-8119Rxffqov1432449 2..1.668044.3.57[id number] 2.0.1.760316.3.579.2.606895-90-8961Oqbpvjg5854022 2.0.1.345283.3.57[id number] 2..1.495344.3.579.[id number] 2.0.1.633121.3.579.2.[id number] 2.0.1.114932.3.57[id number] 2.840.1.906985.3.579.2.821854-63-3714Wqwufyd89502392 2.840.1.186487.3.579.2.688262-85-5183Zwmggdv2645463 2..1.416412.3.579.2.993045-70-8343Tivhgmh0561811 2.0.1.855865.3.579.2.897685-39-2516Kjwfxhv8295485 2.0.1.306[id number] 2..1.471544.19Medicare [id number] ..[id number]re [id number] Health [id number] [id number] n0ewn9ge-2z26-7001-[id number] 2..1.183905.3.579.2.531 Social History DateTypeDetailFacilityStart: 10-11-2023 End: 58-33-7165Ypxxrijw useCaffeine use-[facility] 250 DO Work Phone: Comment on above:COFFEE 2 CUPS DAILY;QUIT IN THE 80'S; Start: 10-11-2023 End: 73-52-9882Vlu Assigned At [facility] Space Other Start: 89-49-6864LHLL HealthcareStart: 13-72-9282Utf Assigned At [facility] Main Campustart: 10-11-2023 End: 02-90-9706Nkupksn smoking status NHISEx-smokerUnOhio State Harding Hospital Work Phone: History of tobacco useCurrent smokerUnOhio State Harding Hospital Work Phone: History of tobacco useCigarette SmokerUnOhio State Harding Hospital Work Phone: Start: 10-11-2023 End: 35-49-2056Bzdmyyu use and exposureSmokeless tobacco non-userUnOhio State Harding Hospital Work Phone: Start: 12-20-2023 End: 38-39-4284Juyjfls intakeLifetime non-drinker (finding)[facility] Work Phone: Start: 25-90-4199Qsf Assigned At BirthNot on file [facility] Work Phone: Start: 12-10-2023 End: 15-09-1324Sypqmsrs to SARS-CoV-2 (event)Not sureUnOhio State Harding HospitalStart: 09-24-2024 End: 68-67-6856UkrLvpx (finding)[facility] Main Campustart: 72-74-6437Tabrblk smoking status NHISNever smoked tobaccoNOMS HealthcareStart: 03-12-2025 End: 25-18-0074Vghrrzbdi beverage intakeDeferNOMS Healthcare Goals DatePatient GoalDesired Activity/State Clinical Notes 09-13-2021 to 07-16-2025 Note Date & WkmrLxenRhyeyvem92-41-8912 History of Present illness Narrative* Jennifer Cordova MD - 07/16/2025 1:30 PM EDT Images from the original note were not included. Skin Check Location: Patient requests a full body skin examination Dermatologic history: history of Melanoma Last visit: 3 months ago Established patient Melanoma History Location: Left upper back, left upper arm Date of Melanoma dx: 06/03/2022, 03/12/2025 Melanoma details: Malignant Melanoma, Melanoma in situ Mitotic rate: 1-2/mm Ulceration: not present Melanoma treatment: Wide excision performed by Mazin Sanford MD, Wide excision performed by MD Neil Additional testing: none Patient denies fatigue, shortness of breath, enlarged lymph nodes, unintentional weight loss, or abdominal pain today. All pertinent medical history, medications, and allergies were reviewed. General Exam: alert, oriented to person, place, and time, normal affect, well appearing Unaccompanied Scalp, Examined Right leg Examined Head, Face Examined Left leg Examined Neck Examined Right foot Examined Chest Examined Left foot Examined Back Examined Buttocks Examined Patient kept underwear on Abdomen Examined Digits,nails: Examined Right arm Examined Left arm Examined Lymphatics: Examined Hands Examined no supraclavicular lymphadenopathy, no axillary lymphadenopathy Skin Exam 1. LENTIGINES Generalized Scattered park macules in sun-exposed areas. The patient was informed that lentigines are benign pigmented lesions that occur on sun-exposed andsun-damaged skin. No treatment is necessary. Recommended regular use of broad spectrum sunscreen SPF 30 or higher 2. ACTINIC KERATOSIS (10) Left Yarsanism, Left Zygomatic Area (2), Mid Parietal Scalp (4), Right Buccal Cheek, Right Preauricular Area, Right Shoulder - Anterior Erythematous scaly papules Patient was counseled regarding these sun-induced growths that can develop into squamous cell carcinoma if left untreated. Discussed treatment with cryotherapy. It was emphasized that any treated lesions that fail to resolve should be re- evaluated. Cryotherapy performed today; see procedure note Diagnosis: Actinic keratosis Indication: Precancerous Location: see skin exam Consent: Verbal consent was obtained and risks were discussed, including, but not limited to risks of scarring, darker or improvement auditor pigmentary changes, recurrence, incomplete removal and infection. Method: Liquid nitrogen was used to treat the lesion(s) with two 5-10 second freeze-thaw cycles. Eyes were shielded using cotton pad during procedure Number of lesions treated: 10 Post-procedure instructions: Instructions were given orally and in writing. The office will be contacted if the lesion fails to resolve despite treatment, or if a side effect develops such as abnormal crusting, scabbing, redness or tenderness Cryotherapy, skin lesion - Left Yarsanism, Left Zygomatic Area (2), Mid Parietal Scalp (4), Right Buccal Cheek, Right Preauricular Area, Right Shoulder - Anterior 3. SEBORRHEIC KERATOSIS, INFLAMED (3) Left Malar Cheek, Right Malar Cheek (2) [place] and brown stuck on verrucous scaly papule with surrounding erythema The patient was informed that symptomatic seborrheic keratoses are benign growths that become inflamed, itchy, tender, traumatized, caught on clothing, or bleed. Symptomatic lesions can be treated with cryotherapy or curretage. Thicker lesions treated with cryotherapy may require more than one treatment. The patient was instructed to notify the office if abnormal redness or tenderness develops atthe treatment site. Cryotherapy today, see procedure note. Diagnosis: Inflamed seborrheic keratosis Indication: Inflamed Consent: Verbal consent was obtained and risks were discussed, including, but not limited to risks of scarring, darker or improvement auditor pigmentary changes, recurrence, incomplete removal and infection. Method: Liquid nitrogen was used to treat the lesion(s) with two 5-10 second freeze-thaw cycles Number of lesions treated: 3 Post-procedure instructions: Instructions were given orally and in writing. The office will be contacted if the lesion fails to resolve despite treatment, or if a side effect develops such as abnormal crusting, scabbing, redness or tenderness Cryotherapy, skin lesion - Left Malar Cheek, Right Malar Cheek (2) 4. NEOPLASM OF UNSPECIFIED BEHAVIOR OF BONE, SOFT TISSUE, AND SKIN (2) Right Lower Back Irregularly pigmented papule Lesion biopsy Type of biopsy: tangential Informed consent: discussed and consent obtained Informed consent comment: The risks and benefits of the biopsy were discussed. Risks include but are not limited to bleeding, infection, scarring, pain, and nerve damage. An opportunity to ask questions prior to the procedure was permitted and all questions were answered. Patient was prepped and draped in usual sterile fashion: area cleansed with alcohol. Anesthesia: the lesion was anesthetized in a standard fashion Anesthetic: 1% lidocaine w/ epinephrine 1-100,000 buffered w/ 8.4% NaHCO3 Instrument used: DermaBlade Hemostasis achieved with: electrodesiccation Outcome: patient tolerated procedure well Outcome comment: The specimen was placed in a prelabeled formalin container to be sent for pathology Post-procedure details: sterile dressing applied and wound care instructions given Post-procedure details comment: Emphasized need to contact clinic for any signs of infection, uncontrollable bleeding, or complications. Dressing type: bandage Additional details: Photo taken yes Amount of lidocaine used: 0.5 cc Specimen A - Dermatopathology exam Differential Diagnosis: atypical mole vs melanoma Check Margins: No Size of lesion: 0.7 x 0.6 cm Diagnosis: (L57.0) Actinic keratosis Plan: Cryotherapy, skin lesion (L82.0) Seborrheic keratosis, inflamed Plan: Cryotherapy, skin lesion (D49.2) Neoplasm of unspecified behavior of bone, soft tissue, and skin Plan: Lesion biopsy Left Forehead Irregularly pigmented papule Lesion biopsy Type of biopsy: tangential Informed consent: discussed and consent obtained Informed consent comment: The risks and benefits of the biopsy were discussed. Risks include but are not limited to bleeding, infection, scarring, pain, and nerve damage. An opportunity to ask questions prior to the procedure was permitted and all questions were answered. Patient was prepped and draped in usual sterile fashion: area cleansed with alcohol. Anesthesia: the lesion was anesthetized in a standard fashion Anesthetic: 1% lidocaine w/ epinephrine 1-100,000 buffered w/ 8.4% NaHCO3 Instrument used: DermaBlade Hemostasis achieved with: electrodesiccation Outcome: patient tolerated procedure well Outcome comment: The specimen was placed in a prelabeled formalin container to be sent for pathology Post-procedure details: sterile dressing applied and wound care instructions given Post-procedure details comment: Emphasized need to contact clinic for any signs of infection, uncontrollable bleeding, or complications. Dressing type: bandage Additional details: Photo taken yes Amount of lidocaine used: 0.5 cc Specimen B - Dermatopathology exam Differential Diagnosis: lentigo vs lentigo maligna Check Margins: No Size of lesion: 0.5 x 0.5 cm 5. HISTORY OF BASAL CELL CARCINOMA (BCC) Left Upper Arm No evidence of recurrence at BCC scar. The patient was counseled that scars from excisional sites of nonmelanoma skin cancers should be monitored closely for recurrence. The patient was instructed to contact the office for any new, changing, or symptomatic moles. The patient was also instructed to contact the office for any new lesions that develop within or around the previous surgery scar. 6. HISTORY OF SCC (SQUAMOUS CELL CARCINOMA) OF SKIN Left Yarsanism No evidence of recurrence at SCC scar. The patient was counseled that scars from excisional sites of nonmelanoma skin cancers should be monitored closely for recurrence. The patient was instructed to contact the office for any new, changing, or symptomatic moles. The patient was also instructed to contact the office for any new lesions that develop within or around the previous surgery scar. 7. SEBORRHEIC KERATOSIS Generalized Stuck on verrucous, park-brown papules and plaques. Patient was counseled regarding these benign growths. Removal is normally not necessary, but they may be removed if they are symptomatic or for cosmetic reasons. Next Visit: 3 months, pending bx results documented in this encounterMercy Hospital [id number] History of Present illness Narrative* Job Helm, SEGUNM - 06/20/2025 10:15 AM EDT Images from the original note were not included. Subjective Patient ID: Junior Torres is a 80 y.o. 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 Does relates occasional shooting pains with toes of right foot. Patient states feels like a bunch of needles . Patient states ongoing for quite a while . Did see family doctor and was prescribed gabapentin, states this was about 3-4 months ago, states sometimes it helps, sometimes not. No recent xrays. States he does wrap a clothe bandage around foot sometimes and that does relieve his symptoms. SS: 11). HPI This is a new patient who presents to clinic via referral with concern of left foot pain. Patient has described approximately a 1 year a shoe with tingling, burning, shooting pains of the left medialankle. Sounds like it happens at night. He states that he does not notice it when he is walking throughout the day. Approximately 3-4 months ago is primary doctor started him on gabapentin. He does not notice significant improvement but does note potentially some mild improvement. Review of Systems Constitutional: Negative for activity change and fatigue. Respiratory: Negative for chest tightness and shortness of breath. Cardiovascular: Positive for leg swelling. Negative for chest pain. Musculoskeletal: Negative for arthralgias and joint swelling. Skin: Negative for color change and wound. Neurological: Positive for numbness. Negative for weakness. Psychiatric/Behavioral: Negative for agitation and behavioral problems. Hematological: Does not bruise/bleed easily. Allergic/Immunologic: Negative for immunocompromised state. Past medical History Past Medical History: Diagnosis Date Melanoma (HCC) Medications Current Outpatient Medications: allopurinol (Zyloprim) 300 MG tablet, , Disp: , Rfl: aspirin 81 MG EC tablet, Take 81 mg by mouth in the morning., Disp: , Rfl: budesonide EC (Entocort EC) 3 MG 24 hr capsule, TAKE 3 CAPSULES BY MOUTH DAILY for FOUR weeks then TAKE 2 CAPSULES BY MOUTH DAILY for 2 (TWO) weeks then TAKE 1 CAPSULE BY MOUTH DAILY for 2 (TWO) weeks, Disp: , Rfl: co-enzyme Q-10 30 MG capsule, Take 30 mg by mouth in the morning and 30 mg at noon and 30 mg in theevening., Disp: , Rfl: Entresto 24-26 MG tablet, Take 1 tablet by mouth in the morning and 1 tablet in the evening., Disp:, Rfl: gabapentin (Neurontin) 300 MG capsule, , Disp: , Rfl: isosorbide mononitrate ER (Imdur) 30 MG 24 hr tablet, Take 30 mg by mouth in the morning., Disp: , Rfl: pravastatin (Pravachol) 80 MG tablet, Take 80 mg by mouth in the morning., Disp: , Rfl: ciclopirox (Loprox) 0.77 % cream, APPLY TO THE AFFECTED AREA(S) topically (feet) TWICE DAILY (Patient not taking: Reported on 06/20/2025), Disp: , Rfl: W-Ooncdhspcvrk-Phcda-B12-B6 (Metanx) 3-90.314-2-35 MG capsule, Take 3 mg by mouth in the morning and 3 mg before bedtime., Disp: 180 capsule, Rfl: 3 loperamide (Imodium) 2 MG capsule, , Disp: , Rfl: Nitroglycerin (NITROSTAT SL), Nitrostat (Patient not taking: Reported on 06/20/2025), Disp: , Rfl: Allergies Patient has no known allergies. Past Surgical History Past Surgical History: Procedure Laterality Date SKIN BIOPSY SKIN CANCER EXCISION Family History No family history on file. Objective Physical Exam HENT: Head: Normocephalic and atraumatic. Cardiovascular: Comments: PT pulses 2/4, DP pulses weakly palpable 1/4. Skin diffusely thin, slightly atrophic. Multiple telangiectasias and varicosities bilaterally. Pulmonary: Effort: Pulmonary effort is normal. No respiratory distress. Abdominal: Palpations: There is no mass. Musculoskeletal: Cervical back: No rigidity. Comments: Weightbearing examination reveals slight planus morphology. Left foot: No tenderness to palpation. Muscle strength 5/5 for all quadrants without tenderness. Ankle dorsiflexion 0 degrees with the knee extended, flexed. Skin: Capillary Refill: Capillary refill takes 2 to 3 seconds. Findings: No lesion or rash. Neurological: Mental Status: He is alert. Comments: Negative Tinel sign with percussion of the tibial nerve, superficial peroneal nerve, deepperoneal nerve of the left lower extremity. Negative straight leg raise test. Psychiatric: Mood and Affect: Mood normal. Behavior: Behavior normal. Assessment/Plan ICD-10-CM 1. Neuritis M79.2 U-Rzezirwqfhnd-Obmwt-B12-B6 (Metanx) 3-90.314-2-35 MG capsule 2. Neuropathy, idiopathic G60.9 J-Zhrscihafkfr-Txnjf-B12-B6 (Metanx) 3-90.314-2-35 MG capsule 3. Left foot pain M79.672 Patient examined and evaluated. Symptomatology seems to be consistent with idiopathic neuropathy with neuritis along the left medial ankle primarily. Discussed treatment options in detail. At this point he has been on gabapentin without significant improvement. Discussed topical medication such as capsaicin. My recommendation would be trialing Metanx. This would have minimal side- effects and I believe it would significantly improve his symptomatology. It would also have low side-effect profile with minimal impact on his other medications. At this time I would recommend this and he elects to move forward after discussing risks and benefits. He was given a sample pack today. Prescription for Metanx sent to his pharmacy. I would like to see him back in 4 months to see if he is improving withMetanx therapy. This note was created with the assistance of a speech recognition program. While intending to generate a timely document that accurately reflects the content of the visit, no guarantee can be provided that every grammatical or spelling mistake has been or will be identified or corrected. Thank you for your understanding. Job Helm DPM documented in this encounterMercy Hospital JoplinYmogmfadon09-22-1894 History of Present illness Narrative* Bud Beatty, - 05/22/2025 10:20 AM EDT Chief Complaint Patient presents with Follow-up Patient here for 10 month follow up for coronary artery disease, denies cardiac c/o at this time. Subjective Junior Torres is a 80 y.o. male 80-year-old gentleman returns for 10-month cardiovascular follow-up and is doing very well other than episodic exertional dyspnea. He still cutting the lawn, taking care of his property, remains independent, denies hospitalizations or nitrate usage or recurrent cardiovascular events. He remains compliant on his current GDMT as tolerable. He does have persistent mild dizziness without falls, vertigo or gait instability. Testing from last year is once again reviewed, carotid duplex exam reveals minimal bilateral carotid plaque less than 50% bilaterally; MUGA scan revealing normal left ventricular function with ejection fraction of 67% Patient has a history of severe ischemic cardiomyopathy with improved left ventricular function last measured several years ago with ejection fraction improved to 50%, now normalized to 67% He has severe three-vessel ASHD ;, continue to follow and for ischemic cardiomyopathy, remote three-vessel CABG with known occluded grafts x3 and subsequent PCI of the LAD x2 drug-eluting stents. Last heart catheterization 2019 revealed the above anatomy with known occlusions of the [place] RCA and c ircumflex, patent LAD and stents and patent ramus branch Recommendations: Follow-up again in 1 year on same therapy Review of Systems All other systems reviewed and are negative. Vitals: 05/22/25 1034 BP: 130/72 BP Location: Left arm Patient Position: Sitting Pulse: 68 Weight: 78.5 kg (173 lb) Height: 1.778 m (5' 10 ) [...] no known allergies. Current Medications Current Outpatient Medications Medication Instructions allopurinol (Zyloprim) 300 mg tablet 1 tablet, Daily aspirin 81 mg EC tablet 1 tablet, Daily budesonide EC (ENTOCORT EC) 3 mg, Daily co-enzyme Q-10 30 mg, 3 times daily gabapentin (NEURONTIN) 300 mg, 3 times daily isosorbide mononitrate ER (IMDUR) 30 mg, oral, Daily loperamide (Imodium) 2 mg capsule 1 capsule, Daily pravastatin (PRAVACHOL) 80 mg, oral, Daily sacubitriL-valsartan (Entresto) 49-51 mg tablet 1 tablet, oral, 2 times daily Assessment/Plan 1. Atherosclerosis of coronary artery of [place] heart without angina pectoris, unspecified vessel or lesion type Follow Up In Cardiology 2. Hx of percutaneous transluminal coronary angioplasty 3. Ischemic cardiomyopathy 4. Malignant melanoma of back (Multi) 5. History of coronary artery bypass graft 6. Dizziness 7. BMI 24.0-24.9, adult 8. Former smoker 9. Hyperlipidemia, unspecified hyperlipidemia type Scribe Attestation By signing my name below, I, Vida Morelos LPN attest that this documentation has been prepared under the direction and in the presence of Homero Beatty DO. Provider Attestation - Scribe documentation All medical record entries made by the Scribe were at my direction and personally dictated by me. Ihave reviewed the chart and agree that the record accurately reflects my personal performance of the history, physical exam, discussion and plan. documented in this encounterPremier Health Work Phone: 1(450) 321-631207-10-2025 Instructions* Patient Instructions* Elin Parra LPN - 05/22/2025 10:20 AM EDT Please bring all medicines, vitamins, and herbal supplements with you when you come to the office. Prescriptions will not be filled unless you are compliant with your follow up appointments or have a follow up appointment scheduled as per instruction of your physician. Refills should be requested at the time of your visit. BMI normal documented in this encounterPremier Health Work Phone: 1([phone]) 895-836807-03-2025 Evaluation note* Diagnosis Onset Date Resolution Status Admit Date GERD (gastroesophageal reflux disease) acuteJuly 2024 2:34pmMicroscopic colitisacuteJuly 2024 2:34pm Superficial bruising of upper limbnoneactiveAugust 2024 11:19am [facility] Work Phone: 1([phone]) 593-384305-15-2025 History of Present illness Narrative* Jennifer Cordova MD - 03/27/2025 1:10 PM EDT Suture Removal Patient here for suture removal: No complaints of redness, drainage or swelling at site, compliant with wound care. Location: Left upper arm, anterior Procedure Performed: Excision Date of Procedure: 03/12/2025 Medications: None All pertinent medical history, medications, and allergies were reviewed. General Exam: alert, oriented to person, place, and time, normal affect, well appearing A focused exam completed based on patient reported problems, see below: Skin Exam 1. ENCOUNTER FOR REMOVAL OF SUTURES Left Upper Arm - Anterior Sutures are intact. Skin edges are well-approximated. Mild erythema along incision line Suture Removal: Procedure: Sutures were removed without difficulty. Tincture of Benzoin was applied around site in preparation of steri-strips. Steri-strips were applied Post-Procedure instructions: Instructed to discontinue wound care., Instructed to keep steri stripson for at least 5-7 days., Pathology results discussed. Next Visit: as scheduled documented in this encounterMercy Hospital [id number] Evaluation note* Diagnosis Onset Date Resolution Status Admit Date Asthma acuteMay 2024 1:11pmCAD (coronary artery disease)acuteMay 2024 1:11pm Chronic coughacuteMay 2024 1:11pmDiabetic peripheral neuropathy associated with type 2 diabetes mellitusacuteMay 2024 1:11pmEncounter for long-term (current) use of medicationsacuteMay 2024 1:11pmEssential (primary) hypertensionacuteMay 2024 1:11pmExternal hemorrhoidsacuteMay 2024 1:11pmGeneralized OAacuteMay 2024 1:11pmGERD (gastroesophageal reflux disease)acuteMay 2024 1:11pmGoutacuteMay 2024 1:11pmIschemic cardiomyopathyacuteMay 2024 1:11pmLymphocytic colitisacuteMay 2024 1:11pmMacrocytic anemiaacuteMay 2024 1:11pmMelanomaacuteMay 2024 1:11pmMixed hyperlipidemiaacuteMay 2024 1:11pmPresbycusis of both earsacute March 18, 2025 1:11pmRenal insufficiencyacuteMay 2024 1:11pmType 2 diabetes mellitus without complication, without long-term current usacuteMay 2024 1:11pmFlatulencenoneactiveMay 2024 1:11pmGERD (gastroesophageal reflux disease)acuteJuly 2024 2:34pmMicroscopic colitisacuteJuly 2024 2:34pm [facility] Work Phone: [phone]) 254-814404-30-2025 History of Present illness Narrative* Jennifer Cordova MD - 03/12/2025 2:00 PM EDT Images from the original note were not included. Subjective Junior Torres is a 79 y.o. male who presents for the following: excision. Location: left upper arm Date of biopsy: 02/11/2025 Diagnosis: Melanoma in- situ Pre-Op Checklist: History of pacemaker/defibrillator: No History of joint replacement in the past 2 years: No History of HIV/Hepatitis B/Hepatitis C: No Latex allergy: No Is the patient currently on a blood thinner? No. Aspirin. The patient was recommended to continue taking their blood thinner as usual before, during, and after the procedure. All pertinent medical history, medications, and allergies were reviewed. Surgical assistants: Meera Zuniga LPN and Derrek Buck LPN Objective Well appearing patient in no apparent distress; mood and affect are within normal limits. Skin Exam 1. MELANOMA IN SITU OF LEFT UPPER ARM (CMS/HCC) Left Upper Arm - Anterior Hyperkeratotic macule at the biopsy site. Skin excision Lesion length (cm): 0.5 Lesion width (cm): [...] in usual sterile fashion (The planned incision lineswere drawn along relaxed skin tension lines, if [...] ml Estimated blood loss: < 1.0 ml Skin repair Complexity: Intermediate Final length (cm): 5.8 Reason [...] uncontrollable bleeding, or complications. Dressing type: bandage Specimen A - Dermatopathology exam Differential Diagnosis: Melanoma in-situ Check Margins: yes Previous accession number: [id number] Excision today. See operative report. Return to clinic prior to next scheduled visit for any signs or symptoms of recurrence, reviewed the signs and symptoms. Recommended for patient to inform dentist, eye doctor, and PCP of new Melanoma diagnosis. No cervical, supraclavicular, or axillary lymphoadenopathy. Recommended that all children of patient to get a yearly skin exam. Patient reports two siblings with hx of melanoma, Sister had hx of pancreatic cancer, Mother had hx of kidney cancer, and colon cancer. Recommended a referral to a genetic doctor for further testing to rule out a familial cancer syndrome. Patient declined referral. Recommended if patient does not want further genetic testing, recommended children to be tested due to extensive family history of cancers. Patient reportedhe recently completed colonoscopy, negative for any polyps. Follow up: 14 days for s/r documented in this encounterMercy Hospital [id number] Evaluation note* Diagnosis Onset Date Resolution Status Admit Date GERD (gastroesophageal reflux disease) acuteApril 2024 2:10pmHiatal herniaacuteApril 2024 2:10pmLymphocytic colitisacuteApril 2024 2:10pm [facility] Work Phone: 1([phone]) 393-264904-01-2025 History of Present illness Narrative* MARILYN Steel - 02/11/2025 2:30 PM EDT Images from the original note were not included. Skin Check Location: Patient requests a full body skin examination Dermatologic history: history of Actinic Keratosis, history of Basal Cell Carcinoma, history of Squamous Cell Carcinoma, history of Melanoma Last visit: 01/23/2023 Melanoma History Location: Right cheek (2007), right lateral mid back (2019), left upper back (2021) Date of Melanoma dx: 2007, 05/19/2020, 05/17/2022 Melanoma details: Malignant Melanoma Breslow's depth: 0.5 mm on the back 2019, 1.9 mm 2021 Mitotic rate: 0/mm squared 2019, 1-2/mm squared 2022 Ulceration: not present Melanoma treatment: Wide excision performed by Dr. Sanford (2019), Wide excision Dr. Brown (2021) Additional testing: none Established patient All pertinent medical history, medications, and allergies were reviewed. General Exam: alert, oriented to person, place, and time, normal affect, well appearing Unaccompanied Areas not examined despite medical recommendation: Scalp, Examined , exam limited by hair Right leg Examined Head, Face Examined Left leg Examined Neck Examined Right foot Examined Chest Examined Left foot Examined Back Examined Buttocks Examined Abdomen Examined Digits,nails: Examined Right arm Examined Left arm Examined Lymphatics: Examined Hands Examined 1. Capillary angioma Scattered ashton-red papule(s). The patient was informed that angiomas are benign growths on the the skin. No treatment is necessary. 2. Seborrheic keratosis Stuck on verrucous, park-brown papules and plaques. Patient was counseled regarding these benign growths. Removal is normally not necessary, but they may be removed if they are symptomatic or for cosmetic reasons. 3. Actinic keratosis (18) Dorsum of Nose, Left Dorsal Hand, Left Yarsanism (2), Mid Forehead, Mid Frontal Scalp (2), Mid Parietal Scalp (6), Right Buccal Cheek (2), Right Eyebrow, Right Forehead (2) Erythematous scaly papules Patient was counseled regarding these sun-induced growths that can develop into squamous cell carcinoma if left untreated. Discussed treatment with cryotherapy. It was emphasized that any treated lesions that fail to resolve should be re- evaluated. Cryotherapy performed today; see procedure note Diagnosis: Actinic keratosis Indication: Precancerous Location: see skin exam Consent: Verbal consent was obtained and risks were discussed, including, but not limited to risks of scarring, darker or improvement auditor pigmentary changes, recurrence, incomplete removal and infection. Method: Liquid nitrogen was used to treat the lesion(s) with two 5-10 second freeze-thaw cycles. Number of lesions treated: 18 Post-procedure instructions: Instructions were given orally and in writing. The office will be contacted if the lesion fails to resolve despite treatment, or if a side effect develops such as abnormal crusting, scabbing, redness or tenderness Cryotherapy, skin lesion - Dorsum of Nose, Left Dorsal Hand, Left Yarsanism (2), Mid Forehead, Mid Frontal Scalp (2), Mid Parietal Scalp (6), Right Buccal Cheek (2), Right Eyebrow, Right Forehead (2) 4. Lentigo simplex (2) Generalized, Neck - Anterior Scattered park macules in sun-exposed areas. The patient was informed that lentigines are benign pigmented lesions that occur on sun-exposed andsun-damaged skin. No treatment is necessary. Recommended regular use of broad spectrum sunscreen SPF 30 or higher 5. History of basal cell carcinoma (BCC) Left Upper Arm No evidence of recurrence at BCC scar. The patient was counseled that scars from excisional sites of nonmelanoma skin cancers should be monitored closely for recurrence. The patient was instructed to contact the office for any new, changing, or symptomatic moles. The patient was also instructed to contact the office for any new lesions that develop within or around the previous surgery scar. 6. History of SCC (squamous cell carcinoma) of skin Left Yarsanism No evidence of recurrence at SCC scar. The patient was counseled that scars from excisional sites of nonmelanoma skin cancers should be monitored closely for recurrence. The patient was instructed to contact the office for any new, changing, or symptomatic moles. The patient was also instructed to contact the office for any new lesions that develop within or around the previous surgery scar. 7. Personal history of malignant melanoma of skin Left Upper Back No evidence of recurrence at melanoma scar. The patient was counseled that scars from excisional sites of melanoma should be monitored closely for recurrence. The patient was instructed to contact the office for any new, changing, or symptomatic moles. The patient was also instructed to contact the office for any new lesions that develop within or around the previous melanoma scar. 8. Neoplasm of unspecified behavior of bone, soft tissue, and skin Left Upper Arm Irregularly pigmented papule Lesion biopsy Type of biopsy: tangential Informed consent: discussed and consent obtained Informed consent comment: The risks and benefits of the biopsy were discussed. Risks include but are not limited to bleeding, infection, scarring, pain, and nerve damage. An opportunity to ask questions prior to the procedure was permitted and all questions were answered. Patient was prepped and draped in usual sterile fashion: area cleansed with alcohol. Anesthesia: the lesion was anesthetized in a standard fashion Anesthetic: 1% lidocaine w/ epinephrine 1-100,000 buffered w/ 8.4% NaHCO3 Instrument used: DermaBlade Hemostasis achieved with: electrodesiccation Outcome: patient tolerated procedure well Outcome comment: The specimen was placed in a prelabeled formalin container to be sent for pathology Post-procedure details: sterile dressing applied and wound care instructions given Post-procedure details comment: Emphasized need to contact clinic for any signs of infection, uncontrollable bleeding, or complications. Dressing type: bandage Additional details: Photo taken Amount of lidocaine used: 0.5 cc Specimen A - Dermatopathology exam Differential Diagnosis: Melanoma vs. Atypical nevus Check Margins: No Size of lesion: 0.5 x 0.4 cm Biopsy today, see procedure note. Next Visit: Pending biopsy results. Recommend 6 month skin check due to prior melanoma in 2021. documented in this encounterMercy Hospital [id number] Procedure noteMer[facility] Evaluation note* Diagnosis Onset Date Resolution Status Admit Date Change in bowel habits acuteSept2023 1:08pmGERD (gastroesophageal reflux disease)acute July 31, 2024 1:08pmHiatal herniaacuteSept2023 1:08pm Lymphocytic colitisacuteSept2023 1:08pm [facility] Work Phone: [phone]) 847-293509-03-2024 History of Present illness Narrative* Bud Beatty, DO - 07/16/2024 11:00 AM EDT Subjective Junior Torres is a 79 y.o. male Chief Complaint Follow-up 79-year-old gentleman here for follow-up he is doing well other than complaints of dizziness. He has frequent dizziness, no evidence of orthostasis on current therapies. Will get dizziness either sitting at baseline occasional dizziness when he arises. He does cough and states that sometimes he cannot catch his breath and will get dizziness with this this is likely secondary to underlying COPD; he has not seen his cna pct and he does not routinely take inhalers. Patient has a history of severe ischemic cardiomyopathy with improved left ventricular [...] above anatomy with known occlusions of the [place] RCA and c ircumflex, patent LAD and stents and patent ramus branch at that time with moderate left ventricular dysfunction, improved on Entresto therapy and guideline directed medical therapies with subsequentMUGA scan revealing ejection fraction of 51% 1 year later and May 2020. He denies any complaints of angina or nitrate usage Recommendations: Continue current therapies obtain appropriate laboratories, we reviewed his Holterand MUGA scans, will follow-up in 8 months and recommend reassessment of his pulmonary function; will also obtain a carotid duplex to further look into dizziness Review of Systems Respiratory: Positive for shortness of breath. Neurological: Positive for dizziness and light-headedness. All other systems reviewed and are negative. Vitals: 07/16/24 1105 07/16/24 1108 BP: 130/80 132/76 BP Location: Left arm Left arm Patient Position: Sitting Standing Pulse: 60 72 Weight: 77.1 kg (170 lb) Height: 1.778 m (5' 10 ) [...] by mouth once daily., Disp: , Rfl: co-enzyme Q-10 30 mg capsule, Take 1 capsule (30 mg) by mouth 3 times a day., Disp: , Rfl: isosorbide mononitrate ER (Imdur) 30 mg 24 hr tablet, Take 1 tablet (30 mg) by mouth once daily., Disp: 90 tablet, Rfl: 3 loperamide (Imodium) 2 mg capsule, Take 1 capsule (2 mg) by mouth once daily., Disp: , Rfl: pravastatin (Pravachol) 80 mg tablet, Take 1 tablet (80 mg) by mouth once daily., Disp: , Rfl: sacubitriL-valsartan (Entresto) 49-51 mg tablet, Take 1 tablet by mouth 2 times a day., Disp: , Rfl: Assessment/Plan 1. Atherosclerosis of coronary artery of [place] heart without angina pectoris, unspecified vessel or lesion type Follow Up In Cardiology 2. Beta-ezequiel intolerance 3. History of coronary artery bypass graft 4. Former smoker 5. BMI 24.0-24.9, adult 6. Ischemic cardiomyopathy 7. Essential hypertension 8. Hyperlipidemia, unspecified hyperlipidemia type Scribe Attestation By signing my name below, IElin LPN , Scribe attest that this documentation has been prepared under the direction and in the presence of Homero Beatty DO. Provider Attestation - Scribe documentation All medical record entries made by the Scribe were at my direction and personally dictated by me. Ihave reviewed the chart and agree that the record accurately reflects my personal performance of the history, physical exam, discussion and plan. documented in this encounterPremier Health Work Phone: 1(291) 148-674309-03-2024 Instructions* Patient Instructions* Fabiola Reddy CMA - 07/16/2024 11:00 AM EDT Please bring all medicines, vitamins, and herbal supplements with you when you come to the office. Prescriptions will not be filled unless you are compliant with your follow up appointments or have a follow up appointment scheduled as per instruction of your physician. Refills should be requested at the time of your visit. documented in this encounterPremier Health Work Phone: [phone]) [phone] History of Present illness Narrative* Bud Beatty, DO - 04/02/2024 1:40 PM EDT Subjective Junior Torres is a 78 y.o. [...] ventricular function last measured several years ago withejection fraction improved to 50%, now normalized to 67% He has severe three-vessel ASHD ;, continue to follow and for ischemic cardiomyopathy, remote three-vessel CABG with known occluded grafts x3 and subsequent PCI of the LAD x2 drug-eluting stents. Last heart catheterization 2018 revealed the above anatomy with known occlusions of the [place] RCA and c ircumflex, patent LAD and stents and patent ramus branch at that time with moderate left ventricular dysfunction, improved on Entresto therapy and guideline directed medical therapies with subsequentMUGA scan revealing ejection fraction of 51% 1 [...] 1 tablet by mouth once daily with breakfast.,Disp: , Rfl: fluticasone (Flonase) 50 mcg/actuation nasal [...] puffs every 6 hours if needed., Disp: ,Rfl: loperamide (Imodium) 2 mg capsule, Take 1 [...] Assessment/Plan 1. Atherosclerosis of coronary artery of [place] heart without angina pectoris, unspecified vessel or lesion type Follow Up In Cardiology Follow Up In Cardiology 2. Ischemic cardiomyopathy Follow Up In Cardiology 3. CHF (NYHA class II, ACC/AHA stage C) (Multi) Follow Up In Cardiology 4. Former smoker 5. Overweight (BMI 25.0-29.9) 6. 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 Bradycardia Holter Or Event Sugar Presser 8. Blurred vision 9. Chronic obstructive pulmonary disease, unspecified COPD type (Multi) Scribe Attestation By signing my name below, I, Leigh Bonilla LPN, Scribhermilo attest that this documentation has been prepared under the direction and in the presence of Homero Beatty DO. Provider Attestation - Scribe documentation All medical record entries made by the Scribe were at my direction and personally dictated by me. Ihave reviewed the chart and agree that the record accurately reflects my personal performance of the history, physical exam, discussion and plan. documented in this encounterUnOhio [facility]ing [facility] Work Phone: 1(635) 256-188505-21-2024 Instructions* Patient Instructions* Leigh Carrion LPN - 04/02/2024 1:40 PM [...] Provided instructions on exercise. documented in this encounterPremier Health Work Phone: [phone] History of Present illness Narrative* Bud Beatty, DO - 12/20/2023 2:30 PM EST Subjective Junior Torres is a 78 y.o. [...] above anatomy with known occlusions of the [place] RCA and c ircumflex, patent LAD and stents and patent ramus branch at that time with moderate left ventricular dysfunction, improved on Entresto therapy and guideline directed medical therapies with subsequentMUGA scan revealing ejection fraction of 51% 1 year later and May 2020. Patient underwent work-up, and treatment and surgical intervention for melanoma of the left upper back details of which are reviewed, without complications or cardiovascular events. He has underlying history of [place] Heart Association class II/C heart failure, COPD, essential hypertension, former smoker, hyperlipidemia, the above- mentioned melanoma with excision, PCI LAD, ischemic cardiomyopathy with improved LV function. He is mildly orthostatic on today's blood pressures, he denies angina or hospitalizations or edema or nitrate usage. Recommendations: Decrease Entresto to 24/26 mg twice daily, obtain 24-hour Holter monitor, MUGA scan to reassess left ventricular function, renal profile and BNP, follow-up with nurse practitioner in3 months with myself within the next 6 [...] 1 tablet by mouth once daily with breakfast.,Disp: , Rfl: fluticasone (Flonase) 50 mcg/actuation nasal spray, Administer 2 sprays into each nostril once daily., Disp: , Rfl: isosorbide mononitrate ER (Imdur) 30 mg 24 hr tablet, Take 1 tablet (30 mg) by mouth once daily., Disp: 90 tablet, Rfl: 3 levalbuterol (Xopenex) 45 mcg/actuation inhaler, Inhale 1-2 puffs every 6 hours if needed., Disp: ,Rfl: loperamide (Imodium) 2 mg capsule, Take 1 capsule (2 mg) by mouth once daily., Disp: , Rfl: nitroglycerin (Nitrostat) 0.4 mg SL tablet, Place 1 tablet (0.4 mg) under the tongue every 5 minutes if needed., Disp: , Rfl: pravastatin (Pravachol) 80 mg tablet, Take 1 tablet (80 mg) by mouth once daily., Disp: , Rfl: Assessment/Plan 1. Atherosclerosis of coronary artery of [place] heart without angina pectoris, unspecified vessel or lesion type 2. Status post angioplasty 3. Ischemic cardiomyopathy 4. CHF (NYHA class II, ACC/AHA stage C) ([facility]) 5. History of coronary artery bypass graft 6. Essential hypertension 7. Hyperlipidemia, unspecified hyperlipidemia type 8. Bradycardia 9. Former smoker Scribe Attestation By signing my name below, Ryann CaldwellSunni Doyle LPN , Scribe attest that this documentation has been prepared under the direction and in the presence of Homero Beatty DO. documented in this encounterPremier Health Work Phone: [phone]) [phone] Instructions* Patient Instructions* Francesca Knox RN - 12/20/2023 2:30 PM [...] time of your visit. documented in this [facility] Work Phone: [phone]) 764-784812-08-2023 Evaluation note* Encounter Date Diagnosis Assessment Notes Treatment Notes Treatment Clinical Notes Oct, Iron deficiency (ICD-10 - E61.1) [employer] Other 12-05-2023 Evaluation note* Encounter Date Diagnosis Assessment Notes Treatment Notes Treatment Clinical Notes Oct, Iron deficiency (ICD-10 - E61.1) [employer] Other 11-20-2023 Evaluation note* Encounter Date Diagnosis Assessment Notes Treatment Notes Treatment Clinical Notes Sep, Iron deficiency (ICD-10 - E61.1) [facility] Other 11-01-2023 Evaluation note* Encounter Date Diagnosis Assessment Notes Treatment Notes Treatment Clinical Notes Sep, Allergic rhinitis (ICD-10 - J30. 9) [facility] Other 06-19-2023 Evaluation note* Encounter Date Diagnosis Assessment Notes Treatment Notes Treatment Clinical Notes Apr, Gout (ICD-10 - M10.9) [facility] Other 05-02-2023 Evaluation note* Encounter Date Diagnosis Assessment Notes Treatment Notes Treatment Clinical Notes March, Cough (ICD-10 - R05) March,llergic rhinitis (ICD-10 - J30.9) March,Hiatal hernia (ICD-10 - K44.9) March,ERD (gastroesophageal reflux disease) (ICD-10 - K21.9) [employer] Other 05-02-2023 Evaluation note* Encounter Date Diagnosis Assessment Notes Treatment Notes Treatment Clinical Notes March, Iron deficiency (ICD-10 - E61.1) We discussed his borderline iron deficiency, borderline anemia. I do not think he needs colonoscopy, he had one 2020 [address] Mendez. We will begin ferrous sulfate 325 mg daily with foodand recheck iron labs and CBC next visit. Discussed the constipating side effects of iron may actually help his long-term colitis diarrhea. March,Macrocytic anemia (ICD-10 - D53.9)See dictation above. His B12 is normal March,out (ICD-10 - M10.9)Stable with allopurinol prophylaxis March,Mixed hyperlipidemia (ICD-10 - E78.2)Stable, appropriate statin dose March,Essential (primary) hypertension (ICD-10 - I10)Stable on current meds March,AD (coronary artery disease) (ICD-10 - I25.10)Clinically stable, continue with [facility] March,Renal insufficiency (ICD-10 - N28.9)Stable at baseline. Discussed mild, will monitor March,Encounter for long-term (current) use of medications (ICD-10 - Z79.899) March,resbycusis of both ears (ICD-10 - H91.13)I simply note this on exam. 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 His is wanting [...] leaning toward continuing occasional as needed use March,Microscopic colitis (ICD-10 - K52.89)Continue with Dr. Mendez March,History of colon polyps (ICD-10 - Z86.010)See dictation above. We will wait to see whether Dr. Mendez recommends 5-year colonoscopy in 2024 athis age. March,hronic cough (ICD-10 - R05)Stable on Flonase. We will be happy to assume refilling it and he will follow-up with Dr. Marrero as needed March,llergic rhinitis (ICD-10 - J30.9)See dictation above March,Type 2 diabetes mellitus without complication, without long-term current use of insulin (ICD-10 - E11.9)We again discussed we are being conservative at his age. Even without sugar medication his hemoglobin A1c is excellent. He is on a statin and Entresto March,Wellness examination (ICD-10 - Z00.00)Well care discussedSee wellness templateRecommended the bivalent COVID booster and Shingrix. After that vaccines will be mj-bn-dmxlNepdkmiux at his age no cancer screening is recommended unless Dr. Mendez wants to continue every 5 year colonoscopy because of history of polyps at his age. Currently [id number]-qo-[id number] told my senior medical transcriptionist he did not want me to bring up or discuss advanced directives I gave him a handwritten summary of the above recommendations March,OtherRTO 6 months preceded by fasting CBC, BMP, hepatic panel, lipid profile, hemoglobin A1c, iron, TIBC, ferritin, reticulocyte count and sooner as needed. I completed a full lab panel because of medicalcomplexity. [employer] Other 03-08-2023 Evaluation note* Encounter Date Diagnosis Assessment Notes Treatment Notes Treatment Clinical Notes Jan, Microscopic colitis (ICD-10 - K5 2.89) patient is currently taking the loperamide, states that he is doing well on it. patient can increase to two pills daily with still having the diarrhea symptoms. can proceed with flex-sig to evaluate microscopic colitis, if patient wishes. Jan,iarrhea (ICD-10 - R19.7)patient is having loose/watery bowel movements any time he eats. [employer] Other 11-07-2022 Evaluation note* Encounter Date Diagnosis Assessment Notes Treatment Notes Treatment Clinical Notes Sep, Gout (ICD-10 - M10.9) Sep,Mixed hyperlipidemia (ICD-10 - E78.2) [employer] Other 11-01-2022 Evaluation note* Encounter Date Diagnosis Assessment Notes Treatment Notes Treatment Clinical Notes Sep, Type 2 diabetes tamiko itus without complication, [...] is already on a statin and Entresto. Sep,Gout (ICD-10 - M10.9)Stable on current allopurinol dose. We will check hemoglobin A1c next visit Sep,Mixed hyperlipidemia (ICD-10 - E78.2)Stable, appropriate statin dose Sep,Essential (primary) hypertension (ICD-10 - I10)Stable on current meds. Although his BP is above 130/80 goal today, he was previously orthostatic and I do not think we should intensify BP medications. [facility] is managing his hypertension. Sep,AD (coronary artery disease) (ICD-10 - I25.10)Clinically stable. Continue with [facility] Sep,sthma (ICD-10 - J45.909)Stable without medication. Continue with Dr. Marrero for his chronic cough Sep,cid reflux (ICD-10 - K21.9)Stable without medication. Sep,2Renal insufficiency (ICD-10 - N28.9)We discussed his mild renal insufficiency. We will continue to follow and be conservative as long as things remain stable. He already is on Entresto. Sep,Encounter for long-term (current) use of medications (ICD-10 - Z79.899) Sep,resbycusis of both ears (ICD-10 - H91.13)We communicated well today. Per previous notes, he does not want to consider a hearing aid Sep,eripheral polyneuropathy (ICD-10 - G62.9)This diagnosis preceded his today diagnosis of type 2 diabetes. Observe. We will need to pursue future diabetic foot exams Sep,Generalized OA (ICD-10 - M15.9)We did not discuss this today, I simply noted on exam, stable without treatment Sep,History of colon polyps (ICD-10 - Z86.010)He is going to call Dr. Mendez to schedule his yearly follow-up Sep,Ischemic cardiomyopathy (ICD-10 - I25.5)Continue with NO. See dictation above Sep,Microscopic colitis (ICD-10 - K52.89)Continue with Dr. Mendez as above Sep,hronic cough (ICD-10 - R05)Stable, continue with Dr. Marrero Sep,ounseled about COVID-19 virus infection (ICD-10 - Z71.89)I did discuss the rationale for the bivalent COVID-vaccine. He told me upfront he did not want any further vaccines and did not change his mind during our conversation. He is aware that the vaccine is available readily if he elects to get it. He also did not want the flu shot today. Sep,Macrocytic anemia (ICD-10 - D53.9)He has mild macrocytic anemia which is near normal for both hemoglobin and RBC cell size. His iron is borderline low which is not consistent with macrocytic. He is close enough to normal that we willobserve and I will obtain the B12 next visit that I want at this visit along with repeating iron. Sep,llergic rhinitis (ICD-10 - J30.9) Sep,2OtherRTO 6 months preceded by fasting CBC, BMP, hepatic panel, lipid profile, hemoglobin A1c, iron, B12 and sooner as needed. [employer] Other 08-25-2022 NotePROCEDURE DETAILS Preoperative Diagnosis: Melanoma left upper back Postoperative Diagnosis: Melanoma left upper back Surgeon: Ольга Brown Resident/Fellow/Other Mine Engineering Supervisor: Lavelle Foley Procedure: 1. WIDE LOCAL EXCISION [...] Details of procedure: The patient arrived at [facility] on 07[facility]22 for the aforementioned [...] complex multilayer fashion using deep 2-0 Vicryl [id number], interrupted 3-0 Vicryl deep dermals, and a [...] Completion Last Updated: 07-Jul-2022 18:00 by Ольга Brown)[facility] 07-07-2022 NoteHistory & Physical Reviewed: I have [...] the note. I personally evaluated the patient [id number] Electronic Signatures: Ольга Brown) (Signed 08-Jul-2022 16:56) Authored: Note Completion Co-Signer: History & Physical Reviewed, ERAS, Consent, Note Completion Lavelle Foley (Resident)) (Signed 07-Jul-2022 15:37) Authored: History & Physical Reviewed, ERAS, Consent, Note Completion Last Updated: 08-Jul-2022 16:56 by Ольга Brown)[facility] 07-07-2022 History of Present illness NarrativeMrSunni Torres [...] dermal nevi located at the mid superior margin.[facility] Work Phone: 1(807) 188-933508-25-2022 History of Present illness NarrativeMrSunni Torres is [...] and there was no melanoma in the specimen.[facility] Work Phone: [phone]) 614-374005-03-2022 Evaluation note* Encounter Date Diagnosis Assessment Notes Treatment Notes Treatment Clinical Notes March, Cough (ICD-10 - R05) March,llergic rhinitis (ICD-10 - J30.9) March,Hiatal hernia (ICD-10 - K44.9) March,GERD (gastroesophageal reflux disease) (ICD-10 - K21.9) [employer] Other 05-02-2022 Evaluation note* Encounter Date Diagnosis Assessment Notes Treatment Notes Treatment Clinical Notes March, Ventral hernia without obstructi on or gangrene (ICD-10 - K43.9) Probably asymptomatic lower ventral epigastric incisional hernia. Worrisome symptoms discussed. Observe March,Hiatal hernia (ICD-10 - K44.9)Probably mildly symptomatic. Healthy diet encouraged. Discussed he could take OTC antacid as needed. If he does not do well we can rework this up including send him back to Dr. Mendez to discuss March,Gout (ICD-10 - M10.9)He had a recent flare trigger unclear. Watch for triggers if he gets further attacks. Continue current allopurinol prophylactic dose March,Mixed hyperlipidemia (ICD-10 - E78.2)Stable, appropriate statin dose March,Essential (primary) hypertension (ICD-10 - I10)His BP is high today. As above, Dr. Beatty is managing his BP and recently decreased his carvedilol because of orthostasis. March,AD (coronary artery disease) (ICD-10 - I25.10)See dictation above. Continue with [facility] March,sthma (ICD-10 - J45.909)His asthma/chronic cough is stable. Continue yearly visit with Dr. Marrero. Currently untreated March,enal insufficiency (ICD-10 - N28.9)Stable, longstanding. He saw nephrology years ago. We will continue to observe as long as things look stable. He is on Entresto which should give some renal protection March,Encounter for long-term (current) use of medications (ICD-10 - Z79.899) March,resbycusis of both ears (ICD-10 - H91.13)I offered audiology referral to consider hearing aids. He declined. He will call if he changes his m ind. March,Generalized OA (ICD-10 - M15.9)Stable likely optimal baseline. I simply noted this on exam today, currently untreated March,Ischemic cardiomyopathy (ICD-10 - I25.5)Continue with [facility] March,Impaired glucose tolerance (ICD-10 - R73.02)Healthy diet and weight encouraged. Risk of diabetes discussed. At his age, I would be conservativeif he would become diabetic if not symptomatic March,Macrocytic anemia (ICD-10 - D53.9)This is mild. I will check B12 level, folate, iron next visit. March,therRTO 6 months preceded by fasting CBC, BMP, lipid profile, hemoglobin A1c, B12, folate, iron and sooner as needed [employer] Other 12-14-2021 Evaluation note* Encounter Date Diagnosis Assessment Notes Treatment Notes Treatment Clinical Notes Oct, Diarrhea (ICD-10 - R19.7) Continue Imodium every morning. Follow up in 1 year Oct,Microscopic colitis (ICD-10 - K52.89) [employer] Other 11-08-2021 Evaluation note* Encounter Date Diagnosis Assessment Notes Treatment Notes Treatment Clinical Notes Sep, Asthma (ICD-10 - J45.909) [facility] Other 11-01-2021 Evaluation note* Encounter Date Diagnosis Assessment Notes Treatment Notes Treatment Clinical Notes Sep, Counseled about COVID-19 virus i nfection (ICD-10 - Z71.89) I did recommend he get the [employer] Covid booster. We did discuss that a [...] available if he elects to do so. Sep,Gout (ICD-10 - M10.9) Stable on allopurinol prophylaxis Sep,Mixed hyperlipidemia (ICD-10 - E78.2) Stable, appropriate statin dose Sep,ssential (primary) hypertension (ICD-10 - I10) Stable on current meds Sep,AD (coronary artery disease) (ICD-10 - I25.10) Stable on current meds. Continue with [facility] Sep,sthma (ICD-10 - J45.909) Because he did not tolerate albuterol, discussed there is no great alternative to Xopenex HFA inhaler for rescue treatment. I encouraged him to call Dr. Marrero's office to see if they might have a sample. Sep,cid reflux (ICD-10 - K21.9) Stable at chronic baseline. Currently untreated Sep,enal insufficiency (ICD-10 - N28.9) Stable. Per previous notes, we are trying to walk for balance beam between effective treatment of his nonischemic cardiomyopathy and renal function. Sep,ncounter for long-term (current) use of medications (ICD-10 - Z79.899) Sep,Generalized OA (ICD-10 - M15.9) He did not complain of arthritis pain today. I simply noted this on exam. Sep,Ischemic cardiomyopathy (ICD-10 - I25.5) Continue with [facility], clinically stable Sep,iarrhea (ICD-10 - R19.7) Stable, continue with [facility] Sep,Microscopic colitis (ICD-10 - K52.89) See dictation above Sep,hronic cough (ICD-10 - R05) Stable likely optimal baseline. Continue with Dr. Marrero Sep,Impaired fasting glucose (ICD-10 - R73.01) We will check hemoglobin A1c next visit Sep,Urinary tract infection symptoms (ICD-10 - R39.9) Sep,OtherAllopurinol material was printedRTO 6 months preceded by fasting CBC, BMP, hepatic panel, lipid profile, hemoglobin A1c, uric acid and sooner as needed. I repeated full lab panel because of his medical complexity. [employer] Other Evaluation noteNo InformationNort Function Space Other Evaluation noteN/ADept. of Dermatology Evaluation note* Diagnosis Atherosclerosis of coronary artery of [place] heart without angina pectoris, unspecified vessel or lesion type Status post angioplasty Postsurgical percutaneous transluminal coronary angioplasty status Ischemic cardiomyopathy Other specified forms of chronic ischemic heart disease CHF (NYHA class II, ACC/AHA stage C) ([facility]/HCC) Congestive heart failure, unspecified History of coronary artery bypass graft Postsurgical aortocoronary bypass status Essential hypertension Unspecified essential hypertension Hyperlipidemia, unspecified hyperlipidemia type Bradycardia Other specified cardiac dysrhythmias Former smoker Personal history of tobacco use, presenting hazards to health documented in this encounter [facility] Work Phone: Evaluation note* Diagnosis Ischemic cardiomyopathy Other specified forms of chronic ischemic heart disease CHF (NYHA class II, ACC/AHA stage C) ([facility]/HCC) Congestive heart failure, unspecified documented in this encounter [facility] Work Phone: Evaluation noteNo assessment information available [facility] Work Phone: Evaluation note* Diagnosis Onset Date Resolution Status Asthma acuteChronic insomnianoneactivePeripheral neuropathynoneactiveSinusitis noneactiveAcute bronchitisnoneactiveCold intolerancenoneactiveIron deficiency noneactive [facility] Work Phone: Evaluation note* Diagnosis Atherosclerosis of coronary artery of [place] heart without angina pectoris, unspecified vessel or [...] COPD type (Multi) documented in this encounter [facility] Work Phone: Evaluation note* Diagnosis Onset Date Resolution Status GERD (gastroesophageal reflux disease) acuteHiatal herniaacuteLymphocytic colitisacute [facility] Work Phone: Evaluation note* Diagnosis Atherosclerosis of coronary artery of [place] heart without angina pectoris, unspecified vessel or lesion type History of coronary artery bypass graft Postsurgical aortocoronary bypass status Ischemic cardiomyopathy Other specified forms of chronic ischemic heart disease Hyperlipidemia, unspecified hyperlipidemia type Dizziness Dizziness and giddiness documented in this encounter [facility] Work Phone: Evaluation note* Diagnosis Onset Date Resolution Status Change in bowel habits acuteGERD (gastroesophageal reflux disease)acuteHiatal herniaacuteLymphocytic colitisacute [facility] Work Phone: Evaluation note* Diagnosis Atherosclerosis of coronary artery of [place] heart without angina pectoris, unspecified vessel or lesion type 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 Postsurgical aortocoronary bypass status Former smoker Personal history of tobacco use, presenting hazards to health BMI 24.0-24.9, adult Ischemic cardiomyopathy Other specified forms of chronic ischemic heart disease Essential hypertension Unspecified essential hypertension Hyperlipidemia, unspecified hyperlipidemia type Dizziness Dizziness and giddiness documented in this encounter [facility] Work Phone: Evaluation note* Diagnosis Capillary angioma- Primary Nevus, non-neoplastic Seborrheic keratosis Actinic keratosis Lentigo simplex Other dyschromia History of basal cell carcinoma (BCC) History of SCC (squamous cell carcinoma) of skin Personal history of other malignant neoplasm of skin Personal history of malignant melanoma of skin Neoplasm of unspecified behavior of bone, soft tissue, and skin documented in this encounter [facility] HealthcareEvaluation note* Diagnosis 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)- Primary documented in [facility] encounter [facility]* Diagnosis Encounter for removal of sutures- Primary documented in this encounter [facility] HealthcareEvaluation note* Diagnosis Atherosclerosis of coronary artery of [place] heart without angina pectoris, unspecified vessel or lesion type Hx of percutaneous transluminal coronary angioplasty Ischemic cardiomyopathy Other specified forms of chronic ischemic heart disease 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 Postsurgical aortocoronary bypass status Dizziness Dizziness and giddiness BMI 24.0-24.9, adult Former smoker Personal history of tobacco use, presenting hazards to health Hyperlipidemia, unspecified hyperlipidemia type documented in this encounter [facility] Work Phone: Evaluation note* Diagnosis Neuritis- Primary Unspecified neuralgia, neuritis, and radiculitis Neuropathy, idiopathic Other specified idiopathic peripheral neuropathy Left foot pain Pain in soft tissues of limb documented [facility] encounter [facility]* Diagnosis Seborrheic keratosis- Primary Actinic keratosis Seborrheic keratosis, inflamed Neoplasm of unspecified behavior of bone, soft tissue, and skin History of basal cell carcinoma (BCC) History of SCC (squamous cell carcinoma) of skin Personal history of other malignant neoplasm of skin Lentigines documented in this encounter [facility] HealthcareHistory general Narrative - Reported* Type Description Date Medical History Gout-feet Medical HistoryIncreased cholesterol, mixed hyperlipidemiaMedical History Essential HTN-1989Medical HistoryCAD-1994Medical 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 Loyd HistoryAsthma (PFT's)-2000Medical History Osteoarthritis Right Shoulder, left hip-2003Medical HistoryChronic renal insufficiency-2004, Dr. De La RosaMedical HistoryCAD, ischemic cardiomyopathy, 2019 cardiac catheterization, ejection fraction 40%Medical Historyallergic rhinitis Medical HistoryHiatal herniaMedical HistoryEsophageal refluxSurgical History Appendectomy at age 12Surgical HistoryCoronary angioplasty- Right coronary artery [facility]1995Surgical HistoryCABG (double bypass) 1994Surgical HistoryRight shoulder arthroscopy-Dr. Barros05/2004Surgical History Melanoma excision right cheek-Dr. Sanford05/2008Surgical HistoryCardiac cath, angioplasty, stent Dr. Winslow05/2015Surgical HistoryHeart cath- multiple 100% blockage with 40% heart function06/25/19Surgical HistoryColonoscopy05/07/19 Surgical Historycolonoscopy ronda06/2020Hospitalization HistoryCardiolyte stress test - Dr. [id number] HistoryCardiac stress test (neg) Dr. [id number] HistoryCardiac stress test (neg) Dr. Blair02/2003 Hospitalization HistoryCardiolyte stress test-[place] 02/2007 Hospitalization HistoryExercise myoview stress test (neg) [facility]09/2009 Hospitalization HistoryEGD (neg), colonoscopy-polyp Dr. 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 PayneMedical HistoryAsthma (PFT's)-2000Medical History Osteoarthritis Right Shoulder, left hip-2003Medical HistoryChronic renal insufficiency-2004, Dr. Mancilla HistoryCAD, ischemic cardiomyopathy, 2018 cardiac catheterization, ejection fraction 40%Medical Historyallergic rhinitis Medical HistoryHiatal herniaMedical HistoryEsophageal refluxMedical History Impaired glucose toleranceMedical HistoryVentral hernia without obstruction or gangreneSurgical HistoryAppendectomy at age 12Surgical HistoryCoronary angioplasty- Right coronary artery [facility]1995Surgical HistoryCABG (double bypass)1994Surgical HistoryRight shoulder arthroscopy-Dr. Barros05/2004Surgical HistoryMelanoma excision right cheek-Dr. Sanford05/2008 Surgical HistoryCardiac cath, angioplasty, stent Dr. Winslow05/2015Surgical HistoryHeart cath- multiple 100% blockage with 40% heart function06/25/19Surgical HistoryColonoscopy05/07/19Surgical Historycolonoscopy ronda06/2020Surgical Historymelanoma removed from nuowszdd07/2022Hospitalization HistoryCardiolyte stress test - Dr. [id number] HistoryCardiac stress test (neg) Dr. BlairSoemas0643Bfhobxrpgvebvei HistoryCardiac stress test (neg) Dr. Blair02/2003 Hospitalization HistoryCardiolyte stress test-[place] 02/2007 Hospitalization HistoryExercise myoview stress test (neg) [facility]09/2009 Hospitalization HistoryEGD (neg), colonoscopy-polyp Dr. 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 Nyedicjustin HistoryAsthma (PFT's)-2000Medical History Osteoarthritis Right Shoulder, left hip-2003Medical HistoryChronic renal insufficiency-2004, Dr. Laurent SolaresCAMoises, ischemic cardiomyopathy, 2019 cardiac catheterization, ejection fraction 40%Medical Historyallergic rhinitis Medical HistoryHiatal herniaMedical HistoryEsophageal refluxMedical History Impaired glucose toleranceMedical HistoryVentral hernia without obstruction or gangreneMedical HistoryRenal insufficiencyMedical HistoryPeripheral polyneuropathyMedical HistoryMicroscopic colitisMedical HistoryChronic cough Medical HistoryType 2 diabetes mellitus without complication, without long-term current use of insulinSurgical HistoryAppendectomy at age 12Surgical History Coronary angioplasty- Right coronary artery [facility] 1994Surgical HistoryCABG (double bypass)1994Surgical HistoryRight shoulder arthroscopy-Dr. Barros05/2004Surgical HistoryMelanoma excision right cheek-Dr. Sanford05/2008Surgical HistoryCardiac cath, angioplasty, stent Dr. Winslow05/2015 Surgical HistoryHeart cath- multiple 100% blockage with 40% heart function 06/25/19Surgical HistoryColonoscopy05/07/19Surgical Historycolonoscopy [place]astport 06/2020Surgical Historymelanoma removed from rszcuycl43/2022Surgical History melanoma removed from back08/2022Hospitalization HistoryCardiolyte stress test - Dr. GalindoEiczsft9914Otapazrfqogtfmm HistoryCardiac stress test (neg) Dr. Blair2003 Hospitalization HistoryCardiac stress test (neg) Dr. Blair02/2003Hospitalization HistoryCardiolyte stress test-[place] 02/2007Hospitalization History Exercise myoview stress test (neg) [facility]09/2009Hospitalization HistoryEGD (neg), colonoscopy-polyp Dr. Shoemaker10/2010Hospitalization HistoryExercise stress test [facility]04/2014 [employer] Other History of Present illness Narrative* The [...] medication regimen. He denies medication side effects. [facility] Work Phone: History of Present illness Narrative* [...] medication regimen. He denies medication side effects. -[facility] Work Phone: History of Present illness Narrative* [...] medication regimen. He denies medication side effects. [facility] Work Phone: Reason for referral (narrative)* Name Reason for referral MAGALY MAGALY Dept. of Dermatology Reequm for referral (narrative)* Consultation (Routine) - AuthorizedSpecialtyDiagnoses / ProceduresReferred By ContactReferred To ContactCardiology Diagnoses Atherosclerosis of coronary artery of [place] heart without angina pectoris, unspecified vessel or lesion type Ischemic cardiomyopathy CHF (NYHA class II, ACC/AHA stage C) ([facility]) Procedures Follow Up In Cardiology Bud Beatty, DO [address] [facility] [address], [address] [address] Yaritza Ortiz, COMMUNITY MENTAL HEALTH SOCIAL WORKER-TRACER POWDER BLENDER [address] [facility] [address], [address] [address] Referral IDStatusReasonStart DateExpiration DateVisits RequestedVisits [id number] * Imaging (Routine) - Pending ReviewSpecialtyDiagnoses / ProceduresReferred By ContactReferred To ContactRadiology Diagnoses Ischemic cardiomyopathy CHF (NYHA class II, ACC/AHA stage C) ([facility]) Procedures NM heart blood pool ejection fraction wall motion (MUGA) Bud Beatty DO [address] [facility] [address], [address] [place] [address] Referral IDStatusSylviaCrossbridge Behavioral Health DateExpiration DateVisits RequestedVisits [id number] Review Perform Procedure * Cardiovascular (Routine) - Pending ReviewSpecialtyDiagnoses / Procedures Referred By ContactReferred To ContactCardiology Diagnoses Bradycardia Procedures Holter Or Event Sugar Presser Bud Beatty DO [address] [facility] [address], [address] [place] [address] Referral IDStatusSylviaasonTribune DateExpiration DateVisits RequestedVisits [id number] Review [facility] Work Phone: Reason for referral (narrative)No reason for referral information availablePark[facility] Health [facility] Work Phone: Summary Purpose Family History No Family History Records FoundUnknown Family Member Name Dates Details Family history of renal fail ure: Mother(V18.69, Z84.1) Status:ActiveFH: diabetes mellitus: Mother(V18.0, Z83.3) Status:ActiveFHx: myocardial infarction: Father(V17.3, Z82.49) Status:ActiveFamily history of cardiac pacemaker: Brother(V17.49, Z82.49) Status:Active Unknown Family Member Name Dates Details Family history of renal fail ure: Mother(V18.69, Z84.1) Status:ActiveFH: diabetes mellitus: Mother(V18.0, Z83.3) Status:ActiveFHx: myocardial infarction: Father(V17.3, Z82.49) Status:ActiveFamily history of cardiac pacemaker: Brother(V17.49, Z82.49) Status:Active Unknown Family Member Name Dates Details Family history of renal fail ure: Mother(V18.69, Z84.1) Status:ActiveFH: diabetes mellitus: Mother(V18.0, Z83.3) Status:ActiveFHx: myocardial infarction: Father(V17.3, Z82.49) Status:ActiveFamily history of cardiac pacemaker: Brother(V17.49, Z82.49) Status:Active Unknown Family Member Name Dates Details Family history of cardiac pa cemaker: Brother(V17.49, Z82.49) Status:ActiveFHx: myocardial infarction: Father(V17.3, Z82.49) Status:ActiveFH: diabetes mellitus: Mother(V18.0, Z83.3) Status:ActiveFamily history of renal failure: Mother(V18.69, Z84.1) Status:Active Unknown Family Member Name Dates Details Family history of renal fail ure: Mother(V18.69, Z84.1) Status:ActiveFH: diabetes mellitus: Mother(V18.0, Z83.3) Status:ActiveFHx: myocardial infarction: Father(V17.3, Z82.49) Status:ActiveFamily history of cardiac pacemaker: Brother(V17.49, Z82.49) Status:Active Unknown Family Member Name Dates Details Family history of renal fail ure: Mother(V18.69, Z84.1) Status:ActiveFH: diabetes mellitus: Mother(V18.0, Z83.3) Status:ActiveFHx: myocardial infarction: Father(V17.3, Z82.49) Status:ActiveFamily history of cardiac pacemaker: Brother(V17.49, Z82.49) Status:Active Unknown Family Member Name Dates Details Family history of renal fail ure: Mother(V18.69, Z84.1) Status:ActiveFH: diabetes mellitus: Mother(V18.0, Z83.3) Status:ActiveFHx: myocardial infarction: Father(V17.3, Z82.49) Status:ActiveFamily history of cardiac pacemaker: Brother(V17.49, Z82.49) Status:Active Unknown Family Member Name Dates Details Family history of renal fail ure: Mother(V18.69, Z84.1) Status:ActiveFH: diabetes mellitus: Mother(V18.0, Z83.3) Status:ActiveFHx: myocardial infarction: Father(V17.3, Z82.49) Status:ActiveFamily history of cardiac pacemaker: Brother(V17.49, Z82.49) Status:Active Unknown Family Member Name Dates Details Family history of renal fail ure: Mother(V18.69, Z84.1) Status:ActiveFH: diabetes mellitus: Mother(V18.0, Z83.3) Status:ActiveFHx: myocardial infarction: Father(V17.3, Z82.49) Status:ActiveFamily history of cardiac pacemaker: Brother(V17.49, Z82.49) Status:Active Unknown Family Member Name Dates Details Family history of renal fail ure: Mother(V18.69, Z84.1) Status:ActiveFH: diabetes mellitus: Mother(V18.0, Z83.3) Status:ActiveFHx: myocardial infarction: Father(V17.3, Z82.49) Status:ActiveFamily history of cardiac pacemaker: Brother(V17.49, Z82.49) Status:Active Unknown Family Member Name Dates Details Family history of cardiac pa cemaker: Brother(V17.49, Z82.49) Status:ActiveFHx: myocardial infarction: Father(V17.3, Z82.49) Status:ActiveFH: diabetes mellitus: Mother(V18.0, Z83.3) Status:ActiveFamily history of renal failure: Mother(V18.69, Z84.1) Status:Active Unknown Family Member Name Dates Details Family history of renal fail ure: Mother(V18.69, Z84.1) Status:ActiveFH: diabetes mellitus: Mother(V18.0, Z83.3) Status:ActiveFHx: myocardial infarction: Father(V17.3, Z82.49) Status:ActiveFamily history of cardiac pacemaker: Brother(V17.49, Z82.49) Status:Active Unknown Family Member Name Dates Details Family history of renal fail ure: Mother(V18.69, Z84.1) Status:ActiveFH: diabetes mellitus: Mother(V18.0, Z83.3) Status:ActiveFHx: myocardial infarction: Father(V17.3, Z82.49) Status:ActiveFamily history of cardiac pacemaker: Brother(V17.49, Z82.49) Status:Active Relationship Condition Age at Onset Recorded Date/T rowan father Myocardial infarction Unknown Not SpecifiedDiabetes mellitusUnknownDiabetic nephropathyUnknownbrotherPresence of cardiac pacemakerUnknownsisterMalignant neoplasm of pancreasUnknownDiabetes mellitusUnknownCerebral hemorrhageUnknownHeart problemUnknowndaughterDiabetes mellitusUnknownHypertensionUnknownbrotherHeart diseaseUnknownfatherHeart disease UnknownDeceasedUnknownRenal failureUnknownMalignant neoplasmUnknownsister Malignant neoplasmUnknown Relationship Condition Age at Onset Recorded Date/T rowan father Myocardial infarction Unknown motherDiabetes mellitusUnknownDiabetic nephropathyUnknownbrotherPresence of cardiac pacemakerUnknownsisterMalignant neoplasm of pancreasUnknownDiabetes mellitusUnknownCerebral hemorrhageUnknownHeart problemUnknowndaughterDiabetes mellitusUnknownHypertensionUnknownbrotherHeart diseaseUnknownfatherHeart disease UnknownDeceasedUnknownRenal failureUnknownMalignant neoplasmUnknownsister Malignant neoplasmUnknown Advance Directives No Advanced Directives Records Found Advance Directive Response Recorded Date/ Time Advance Directives No March 13, 2019 10:30am Advance Directive Response Recorded Date/ Time Advance Directives No March 13, 2019 9:30am Chief Complaint * I am getting a little dizzy * JUNIOR TORRES is being seen for a 3 week follow-up of hypertension. * Patient was last evaluated in clinic Dr. Beatty Nov 2021 * Changes to medical regimen [...] Patient was last evaluated in clinic Dr. Beatty Nov 2021 * Changes to medical regimen [...] above anatomy with known occlusions of the [place] RCA and circumflex, patent LAD and stents [...] events. * He has underlying history of [place] Heart Association class II/C heart failure, COPD, essential hypertension, former smoker, hyperlipidemia, the above-mentioned melanoma with excision, PCI LAD, ischemic cardiomyopathy with improved LV function. * Recommendations: We will continue current therapies, follow-up with within the next year Reason for Referral SpecialtyDiagnoses / ProceduresReferred By ContactReferred To ContactCardiology Diagnoses Dizziness Bradycardia Procedures Holter Or Event Sugar Presser Bud Beatty DO [address] [place] [address] 2, [place] [id number] Referral [facility]Status[facility] DateExpiration DateVisits RequestedVisits [id number] Review/[id number] / ProceduresReferred By ContactReferred To ContactCardiology Diagnoses Atherosclerosis of coronary artery of [place] heart without angina pectoris, unspecified vessel or lesion type Procedures Follow Up In Cardiology Bud Beatty DO [address] [place] [address] 2, [address] [address] Bud Beatty, [address] [place] [address] 2, [address] [address] Referral IDStatOhio[facility] DateExpiration DateVisits RequestedVisits [id number]/21/20245/[id number] / Procedures Referred By ContactReferred To ContactRadiology Diagnoses Ischemic cardiomyopathy CHF (NYHA class II, ACC/AHA stage C) (CMS/HCC) Procedures NM heart blood pool ejection fraction wall motion (MUGA) Bud Beatty DO [address] [facility] [address], [address] [place] [address] Referral IDStatusReasonStart DateExpiration DateVisits RequestedVisits [id number] Perform Procedure / Chief Complaint and Reason for Visit Chief Complaint ^ Amb Documentation uri Chief Complaint ^ Amb Documentation uri SAWV/LABSReason for VisitAsthma Chronic insomnia Peripheral neuropathy Sinusitis Acute bronchitis Cold intolerance Iron deficiency Chief Complaint ^ 1 yr f/u-microscopic colitisReason for VisitGERD (gastroesophageal reflux disease) Hiatal hernia Lymphocytic colitis Chief Complaint ^ 1 yr f/u-microscopic colitis colitis colitisReason for VisitChange in bowel habits GERD (gastroesophageal reflux disease) Hiatal hernia Lymphocytic colitis Chief Complaint Admit Date ^ June 01, 2004 6:21 pm 1 yr f/u-microscopic colitis July 142023 1:08pm colitis August 26, 2024 1 1:20am colitis August 26, 2024 1 2:43pm 6 month/fasting labs September 24, 2024 1:53pm Reason for Visit Admit Date Change in bowel habits July 31, 024 1:08pm GERD (gastroesophageal reflux disease) S eptember 2023 1:08pm Hiatal hernia July 31, 2024 1:08pm Lymphocytic colitis July 31, 2024 1:08pm Chief Complaint Admit Date ^ June 01, 2004 6:21 pm follow up-microscopic colitis February 12, 2025 2:10pm Chief Complaint Admit Date ^ June 01, 2004 6:21 pm follow up-microscopic colitis February 12, 2025 2:10pm 6 month/fasting labs March 18, 2025 1:11p m Reason for Visit Admit Date GERD (gastroesophageal reflux disease) A pril 2024 2:10pm Hiatal hernia February 12, 2025 2:10 pm Lymphocytic colitis February 12, 2025 2:10 pm Chief Complaint Admit Date ^ June 01, 2004 6:21 pm 6 month/fasting labs March 18, 2025 1:11p m 3 month follow up/microscopic colitis Ju ly 2024 2:34pm Reason for Visit Admit Date Asthma March 18, 2025 1:11pm CAD (coronary artery disease) March 18, 2 025 1:11pm Chronic cough March 18, 2025 1:11pm Diabetic peripheral neuropat hy associated with type 2 diabetes mellitus March 18, 2025 1:11pm Encounter for long-term (current) use of medications March 18, 2025 1:11pm Essential (primary) hypertension March 1:11pm External hemorrhoids March 18, 2025 1:11p m Generalized OA March 18, 2025 1:11pm GERD (gastroesophageal reflux disease) M ay 2024 1:11pm Gout March 18, 2025 1:11pm Ischemic cardiomyopathy March 18, 2025 1: 11pm Lymphocytic colitis March 18, 2025 1:11pm Macrocytic anemia March 18, 2025 1:11pm Melanoma March 18, 2025 1:11pm Mixed hyperlipidemia March 18, 2025 1:11p m Presbycusis of both ears March 18, 2025 1 :11pm Renal insufficiency March 18, 2025 1:11pm Type 2 diabetes mellitus wit hout complication, without long-term current us March 18, 2025 1:11pm Flatulence March 18, 2025 1:11pm GERD (gastroesophageal reflux disease) J yelena 2024 2:34pm Microscopic colitis May 15, 2025 2:34p m Chief Complaint Admit Date ^ June 01, 2004 6:21 pm 3 month follow up/microscopic colitis Ju ly 2024 2:34pm bruising June 17, 2025 11: 19am Reason for Visit Admit Date GERD (gastroesophageal reflux disease) J yelena 2024 2:34pm Microscopic colitis May 15, 2025 2:34p m Superficial bruising of upper limb Augus t 2024 11:19am Chief Complaint Admit Date ^ June 01, 2004 6:21 pm 3 month follow up/microscopic colitis Ju ly 2024 2:34pm bruising June 17, 2025 11: 19am skin tear/left arm July 07, 2025 3: 16pm Additional Source Comments (unrecognized sect ion and content) No Status Records FoundNo Status Records FoundNo Status Records FoundNo Status Records FoundNo Status Records FoundNo Status Records FoundNo Status Records FoundNo Status Records FoundNo Status Records Found INFORMATION SOURCE (unrecogn ized section and content) DATE CREATED AUTHOR 07/13/2020 [facility] DATE CREATED AUTHOR AUTHOR'S ORGANIZ ATION 12/15/2022 [facility] DATE CREATED AUTHOR AUTHOR'S ORGANIZ ATION 02/13/2023 [facility] DATE CREATED AUTHOR AUTHOR'S ORGANIZ ATION 03/17/2023 [facility] DATE CREATED AUTHOR AUTHOR'S ORGANIZ ATION 09/29/2023 [employer] DATE CREATED AUTHOR AUTHOR'S ORGANIZ ATION 09/03/2024 [facility] DATE CREATED AUTHOR AUTHOR'S ORGANIZ ATION 11/22/2024 [facility] DATE CREATED AUTHOR AUTHOR'S ORGANIZ ATION 05/26/2025 [facility] DATE CREATED AUTHOR AUTHOR'S ORGANIZ ATION 07/18/2025 [facility] EPIC Reason for Visit (unrecogniz ed section and content) ReasonCommentsAnnual ExamSpecialtyDiagnoses / ProceduresReferred By Contact Referred To ContactRadiology Diagnoses Ischemic cardiomyopathy CHF (NYHA class II, ACC/AHA stage C) ([facility]) Procedures NM heart blood pool ejection fraction wall motion (MUGA) Bud Beatty, [address] [place] [address] 2, [address] [place] [address] Referral IDStatusReasonStart DateExpiration DateVisits RequestedVisits [id number] Perform Procedure [id number] / Procedures Referred By ContactReferred To ContactCardiology Diagnoses Atherosclerosis of coronary artery of [place] heart without angina pectoris, unspecified vessel or lesion type Ischemic cardiomyopathy CHF (NYHA class II, ACC/AHA stage C) ([facility]) Procedures Follow Up In Cardiology Bud Beatty, [address] [facility] [address], [address] [place] [address] Yaritza Ortiz, COMMUNITY MENTAL HEALTH SOCIAL WORKER-TRACER POWDER BLENDER [address] [facility] [address], [address] [place], [place] [id number] Referral IDStatusReasonStart DateExpiration DateVisits RequestedVisits [id number]/7/20242/[id number] / Procedures Referred By ContactReferred To ContactCardiology Diagnoses Atherosclerosis of coronary artery of [place] heart without angina pectoris, unspecified vessel or lesion type History of coronary artery bypass graft Ischemic cardiomyopathy Hyperlipidemia, unspecified hyperlipidemia type Dizziness Procedures Vascular US Carotid Artery Duplex Bilateral Bud Beatty, DO [address] [facility] 2, [place] [phone] Referral IDStatusReasonStart DateExpiration DateVisits RequestedVisits [id number] Perform Procedure /[id number]-tb3 monthsSpecialtyDiagnoses / Procedures Referred By ContactReferred To ContactCardiology Diagnoses Atherosclerosis of coronary artery of [place] heart without angina pectoris, unspecified vessel or lesion type Procedures Follow Up In Cardiology Bud Beatty, DO [address], [place] [phone] Bud Beatty, DO [address] [facility] 2, [place] [id number] Referral IDStatusReasonStart DateExpiration DateVisits RequestedVisits [id number]/21/20245/[id number] CheckReason CommentsexcisionReasonCommentsFollow-upPatient here for 10 month follow up for coronary artery disease, denies cardiac c/o at this time.SpecialtyDiagnoses / ProceduresReferred By ContactReferred To ContactCardiology Diagnoses Atherosclerosis of coronary artery of [place] heart without angina pectoris, unspecified vessel or lesion type Procedures Follow Up In Cardiology Bud Beatty, DO [address], [address] [place] [address] Phone: tel: fax: Bud Beatty, DO [address] [facility] 2, [facility] [address] [place] [address] Phone: tel: fax: Referral IDStatusReasonStart DateExpiration DateVisits RequestedVisits [id number]/3/20249/[id number] 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 Does relates occasional shooting pains with toes of right foot. Patient states feels like a bunch of needles . Patientstates ongoing for quite a while . Did see family doctor and was prescribed gabapentin, states this was about 3-4 months ago, states sometimes it helps, sometimes not. No recent xrays. States he does wrap a clothe bandage around foot sometimes and that does relieve his symptoms. SS: 11 Care Teams (unrecognized sec tion and content) Team MemberRelationshipSpecialtyStart DateEnd Date Hayden Adams DO [address] [place] [address] [facility]/20/23Team MemberRelationshipSpecialtyStart DateEnd Date Hayden Adams DO [address] [facility] [place] [address] [facility] - [facility]12/20/23Team MemberRelationshipSpecialtyStart DateEnd Date Hayden Adams DO [address] [facility] [place] [address] PCP - GeneralFamily Medicine12/20/23 Team Status: Active Member Role Status Dates Hayden Adams DO Primary Care Provider Active Team Status: Active Member Role Status Dates Ольга Barros Attending Provider Active Start: June 01, 2004 Team Status: Active Member Role Status Dates Hayden Adams DO Primary Care Provider Active St art: January 17, 2024 Destiny Angel Gretchen ProviderActiveStart: January 17, 2024 Team Status: Inactive Member [...] Start: March 15, 2024 End: March 15, 2024Team MemberRelationshipSpecialtyStart DateEnd Date Hayden Adams DO [facility]12/20/23 Team Status: Active Member Role Status Dates Val Beatty DO Specialist Active MICHELLE GarzapecediliaistActiveKalpesh Hathaway Care ProviderActive Team Status: Inactive Member Role Status Dates Hayden Aadms DO Primary Care Provider Active St art: July 31, 2024 End: July 31Lata Clemons ProviderActiveStart: July 31, 2024 End: July 31, 2024Team MemberRelationshipSpecialtyStart DateEnd Date Hayden Adams DO [address] [facility] [place] [address] [facility]08/20/24 Team Status: Inactive Member Role Status Dates Hayden Adams DO Primary Care Provider Active St art: August 26, 2024 End: August 26Lata Clemons ProviderActiveStart: August 26, 2024 End: August 26, 2024 Team Status: Active Member Role Status Dates Hayden Adams DO Primary Care Provider Active St art: August 26, 2024 Lata Garza Provider, Other ProviderActiveStart: August 26, 2024 Team Status: Active Member Role Status Dates Hayden Obeddier DO Primary Care Provide r, Attending Provider Active Start: September 24, 2024 Team Status: Inactive Member Role Status Dates Hayden Obeddier , DO Primary Care Provide r, Attending Provider Active Start: September 24, 2024 End: September 24, 2024Team MemberRelationshipSpecialtyStart DateEnd Date Hayden Adams DO PCP - [facility]12/20/23 Team Status: Inactive Member Role Status Dates Hayden Adams DO Primary Care Provider Active St art: February 12, 2025 End: February 12Lata Clemons ProviderActiveStart: February 12, 2025 End: February 12, 2025 Team Status: Active Member Role Status Dates Hayden Obeddier DO Primary Care Provide r, Attending Provider Active Start: February 19, 2025 Team Status: Inactive Member Role Status Dates Hayden Obeddier DO Primary Care Provide r, Attending Provider Active Start: March 18, 2025 End: March 18, 2025 Team Status: Active Member Role Status Dates Hayden Obeddier DO Primary Care Provider Active St art: February 19, 2025 Hayden Obeddier , DOAttending ProviderActiveStart: February 19, 2025 Team Status: Inactive Member Role Status Dates Hayden Oberer DO Primary Care Provider Active St art: March 18, 2025 End: March 18, 2025Hayden Oberer , DOAttending ProviderActiveStart: March 18, 2025 End: March 18, 2025 Team Status: Inactive Member Role Status Dates Hayden Obeddier DO Primary Care Provider Active St art: May 15, 2025 End: May 15Lata Clemons ProviderActiveStart: May 15, 2025 End: May 15, 2025Team MemberRelationshipSpecialtyStart DateEnd Date Hayden Adams DO [address] [facility] [place] [place] [address] PCP - [facility]08/20/24 Team Status: Active Member Role Status Dates Hayden Adams DO Primary Care Provider Active St art: May 22, 2025 Crescencio Mendez CORDELIAttgiuliana ProviderActiveStart: May 22, 2025 Team Status: Inactive Member Role Status Dates Hayden Adams DO Primary Care Provider Active St art: June 17, 2025 End: June 17, 2025Hayden Adams Attending ProviderActiveStart: June 17, 2025 End: June 17, 2025Team MemberRelationshipSpecialtyStart DateEnd Date Hayden Adams MD [address] [place] [address] [facility]06/20/25Team MemberRelationshipSpecialtyStart DateEnd Date Hayden Adams MD [address] [facility] [place] [address] [facility]06/20/25 Team Status: Inactive Member Role Status Dates Hayden Adams DO Primary Care Provider Active St art: July 07, 2025 End: July 07, 2025Hayden Adams Attgiuliana ProviderActiveStart: July 07, 2025 End: July 07, 2025Team MemberRelationshipSpecialtyStart DateEnd Date Hayden Adams MD [address] [place] [address] [facility]06/20/25Team MemberRelationshipSpecialtyStart DateEnd Date Hayden Adams MD [address] [place] [address] PCP - GeneralFamily Medicine06/20/25 Goals (unrecognized section and content) Goals may [...] BE BASED ON THE PRIMARY CLINICAL RECORDS. [employer] [facility] provides no warranty or guarantee of the accuracy or completeness of information in this document.
[2025-09-02 09:39] LABS: Hematocrit 39.3 % (42.0-54.0); Hemoglobin 13.0 g/dL (14.0-18.0); Immature Granulocytes Abs Auto 0.03 10^3/uL (0.00-0.03); Immature Granulocytes Pct Auto 0.3 % (0.0-0.5); Lymphocytes Absolute Auto 2.4 10^3/uL (1.2-3.8); Mean Corpuscular HGB Conc 33.1 g/dL (29.9-35.2); Mean Corpuscular Hemoglobin 32.7 pg (25.9-34.0); Mean Corpuscular Volume 98.7 fL (80.0-94.0); Platelet Count 197 10^3/uL (150-450); Red Blood Count 3.98 10^6/uL (4.70-6.10); White Blood Count 9.6 10^3/uL (4.0-11.0)
[2025-09-02 10:19] LABS: Alanine Aminotransferase 26 U/L (16-63); Albumin Globulin Ratio 1.1; Albumin Level 3.3 g/dL (3.4-5.0); Alkaline Phosphatase 81 U/L (46-116); Anion Gap 9.5; Aspartate Amino Transferase 15 U/L (15-37); Blood Urea Nitrogen 25.0 mg/dL (7.0-18.0); Calcium 8.9 mg/dL (8.5-10.1); Carbon Dioxide 30.5 mmol/L (21.0-32.0); Chloride 106 mmol/L (98-107); Cholesterol 140 mg/dL (<=200); Estimated GFR (African America 51 (>=60 mL/min/1.73m^2); Estimated GFR (Non-African Ame 42 (>=60 mL/min/1.73m^2); Globulin 3.1 g/dL; Glucose 114 mg/dL (74-106); HDL Cholesterol 58 mg/dL (40-60); Potassium 4.0 mmol/L (3.5-5.1); Sodium 142 mmol/L (136-145); Total Protein 6.4 g/dL (6.4-8.2); Triglycerides 68 mg/dL (<=150); VLDL CHOLESTEROL 13.6 mg/dL
== END 2025-09-02 09:13 | disposition home or self-care (01) ==
LOC: LAB 09:17
PROVIDERS: PCP Family Medicine; Visit Provider Family Medicine
DX: E78.00 Pure hypercholesterolemia, unspecified (principal); R73.02 Impaired glucose tolerance (oral); I10 Essential (primary) hypertension; Z12.5 Encounter for screening for malignant neoplasm of prostate; Z79.899 Other long term (current) drug therapy
CPT/HCPCS: 36415; 80048; 80061; 80076; 83036; 85025; G0103

== ENCOUNTER 2025-09-29 15:31 | Outpatient (OUT) | payer MEDICARE, SELFPAY ==
--- OUTSIDE RECORDS SUMMARY | 2025-09-29 15:39 | XMS_ITS | CCD ---
Author Organization [facility] Care Team Providers Care Load Planner Name Role Phone ObererJuan Franciscol L Unavailable Unavailable Unavailable Oberer Hayden Unavailable Crescencio Mendez Unavailable Jacob Marrero Unavailable Julita Owen Unavailable Unavailable Oberer, Hayden Joey Primary Care Unavailable MIGUEL A Ortiz Attending Unavailable MIGUEL A Ortiz Referring Unavailable Oberer, Hayden Joey Primary Care Unavailable Rogerio, Dr. Bud Jacobson Attending Unava ilable Rogerio, Dr. Bud Jacobson Referring Unava ilable Oberer, Hayden Joey Primary Care Unavailable Rogreio, Dr. Bud aJcobson Attending Unava ilamanda Beatty, Dr. Bud Jacobson Referring Unava ilable KAREN [...] Unavailable Angel, MIGUEL A Yaritza Attending Unavailable Angel, SAW EDGE FUSER CIRCULAR Yaritza Referring Unavailable Oberer, Hayden Cook Primary [...] Primary Care Provider Ольга Barros Attending Provider Oberer DOHayden Primary Care Provider Unamnjesus esposito Oberer DO, Hayden Hines Primary Care Provider [phone] Oberer, DO Hayden Primary Care Provider MD Crescencio Mendez Attending Provider Crescencio Mendez Attending Unavailable Crescencio Mendez Admitting Unavailable ObeddierHayden Primary Care Unavailable Ольга Barros Attending Provider Oberer Hayden SANDOVAL Primary Care Provider [phone] Crescencio Mendez MD Attending Provider Oberer DO, Hayden Hines Primary Care Provider BUD BEATTY Referring Unavailable OBERER, HAYDEN L Primary Care Unavailable BUD BEATTY Referring Unavailable OBERER, HAYDEN L Primary Care Unavailable BUD BEATTY Referring Unavailable OBERER, HAYDEN L Primary Care Unavailable Unavailable Primary Care Provider Unavailabl e Oberer DO, Hayden Primary Care Provider [phone] Oberer DO Hayden Attending Provider [phone] Crescencio Mendez MD Attending Provider Hayden Adams DO Primary Care Provider BUD BEATTY Attending Unavailable BUD BEATTY Referring Unavailable HAYDEN ADAMS Primary Care Unavailable BUD BEATTY Attending Unavailable BUD BEATTY Referring Unavailable HAYDEN ADAMS Primary Care Unavailable Hayden Adams DO Primary Care Provider Hayden Adams DO Attending Provider [phone] Hayden Adams MD Primary Care Provider JAKE LOFTON Attending Unavailable JENNIFER CORDOVA Attending Unavailable JENNIFER CORDOVA Attending Unavailable JOB HELM Attending Unavailable JENNIFER CORDOVA Attending Unavailable Hayden Adams DO Primary Care Provider [phone] Hayden Adams DO Attending Provider Evan MIGUEL Attending Unavailable HAYDEN ADAMS Referring Unavailable Allergies Allergy ClassificationReported Allergen(s)Allergy TypeDate of OnsetReaction(s) Facility (20 sources)amLODIPineDrug Slwyyqp81-07-2788hbfuinxbbfL[facility] ([facility] sources)MetoprololDrug Emeexyi55-93-4514XOEijastpniAshtabula County [facility] (1 source)No AlertPropensity to adverse reactions to ohib05-75-2604[facility] (1 source)amLODIPineDrug Qpvffqr01-95-5226HldpjialgFulton [facility] (1 source)MetoprololDrug Gsgpbfz59-20-8454KggjglzfbFulton County Health Center [facility] Medications Current Medications MedicationDrug Class(es)DatesSig (Normalized)Sig (Original)allopurinol 300 mg oral tablet (20 sources)Xanthine Oxidase InhibitorStart: 33-25-7603khdi 1 tablet by mouth once dailyAllopurinol 300 mg tablet Active 0 .ROUTE .COMPLEX 90 August 04, 2025 12:06pm TAKE 1 TABLET BY MOUTH DAILY FOR GOUT Complies with drug therapyStart: 03-06-2025 End: 86-85-8836snjs 1 tablet by mouth once dailyAllopurinol 300 mg tablet Discontinued 0 .ROUTE .COMPLEX 90 March 06, 2025 7:33am March 1857:59am TAKE 1 TABLET BY MOUTH DAILY FOR GOUTStart: 05-06-2019 End: 10-67-9539bhyx 1 tablet by mouth once dailyAllopurinol 300 mg tablet Discontinued 300 MG PO Daily 90 September 25, 2024 12:13pm February 7:38am Goutaspirin 81 mg chewable tablet (20 sources)Platelet Aggregation Inhibitor, Nonsteroidal Anti-inflammatory Drug Start: 85-67-5676bzqj 1 tablet by mouth once daily in the eveningAspirin 81 mg Tablet,Chewable Active 81 MG PO Daily June 20, 2019 11:00pm CAD takes in PM Complies with drug therapyStart: 03-89-3728flmn 81 mg by mouth once daily in the eveningAspirin Active 81 MG PO Daily June 21, 2019 12:00am takes in PMtake 1 tablet by mouth in the morningaspirin 81 MG EC tablet Take 81 mg by mouth in the morning. ActiveCalcium & Magnesium Carbonates (8 sources)Calcium & Magnesium Carbonates Activeciclopirox 7.7 mg/ml topical cream (20 sources)Start: 17-47-1341Ceerhmyqld 0.77 % cream Active 1 APPLIC TOPICAL Twice daily 90 May 07, 2025 11:00pm Complies with drug therapyStart: 03-15-2024 End: 32-65-2378Rhwuclxufd (Loprox (As Olamine)) 0.77 % cream Discontinued 1 APPLIC TOPICAL Twice daily 90 3 March 14, 2024 11:00pm July 31, 2024 12:16pm Athlete's foot Apply to feetCo Q 10 (20 sources)Co Q 10 Activecolchicine 0.6 mg oral tablet (13 sources)Start: 10-25-2021 End: 39-33-4590ddlp 1 tablet by mouth once daily as neededcolchicine 0.6 mg tablet Take 1 tablet (0.6 mg) by mouth once daily. As needed for gout flare 10/25/2021 07/16/2024 Discontinued (Therapy completed)Start: 10-25-2021 Colchicine 0.6 MG Oral Tablet Quantity: 3 Refills: 0 Ordered: 25-Oct-2021 DO Start : 25-Oct-2021 ActiveStart: 33-50-3974Ocgtstu 0.6 MG 2 tablets initially and 1 tablet in 1 hour Orally for 30 day(s) Oct, Activehydrocortisone 25 mg/ml topical cream (4 sources)CorticosteroidStart: 20-64-2844Gnoghcpjvsihep (Proctozone-Hc) 2.5 % cream with perineal applicator Active 1 APPLIC MO 2-4 TIMES PER DAY as needed for hemorrhoids 11 04March 17, 2025 11:00pm External hemorrhoids Residual hemorrhoidal skin tags Complies with drug ssygqby46 hr isosorbide mononitrate 30 mg extended release oral tablet (20 sources)Nitrate VasodilatorStart: 06-25-2019 End: 58-11-7568wunf 1 tablet by mouth once daily, then take 1 tablet by mouth every twenty-four hoursIsosorbide Mononitrate 30 mg tablet extended release 24 hr Active 30 MG PO Daily 09 02June 24, 2019 11:00pm Complies with drug therapyIsosorbide Mononitrate AfarynK-Zkerqexvugyh-Fhmjw-B12-B6 (Metanx) 3-90.314-2-35 MG capsule (5 sources)Start: 06-20-2025 End: 48-58-8177qcxo 1 capsule by mouth in the oukwqbsK-Yljkdzdfxsqb-Mowxw-B12-B6 (Metanx) 3-90.314-2-35 MG capsule Indications: Neuritis , Neuropathy, idiopathic Take 3 mg by mouth in the morning and 3 mg before bedtime. 180 capsule 3 06/20/2025 09/18/2025 Asespq363 actuat levalbuterol 0.045 mg/actuat metered dose inhaler (20 sources)beta2-Adrenergic AgonistStart: 09-20-2021 End: 00-35-2971hlii 1-2 puff(s) by inhalation every six hourslevalbuterol (Xopenex) 45 mcg/actuation inhaler Inhale 1-2 puffs every 6 hours if needed. 09/20/2021 07/16/2024 Discontinued (Therapy completed)Start: 09-20-2021 Levalbuterol Tartrate 45 MCG/ACT Inhalation Aerosol As directed. Quantity: 0 Refills: 0 Ordered: 20-Sep-2021 DO Start : 20-Sep-2021 ActiveStart: 06-25-2019 End: 49-60-8159qrdh 1 puff(s) by inhalation every four to six hours as needed for wheezingLevalbuterol Tartrate (Xopenex Hfa) 45 mcg/actuation Hfa Aerosol Inhaler Discontinued 1 PUFF INHALATION EVERY 4-6 HOURS as needed for Wheezing June 24, 2019 11:00pm July 31, 2024 12:16pmtake 1 puff(s) by inhalation every four hours as neededXopenex HFA 45 MCG/ACT 1 puff as needed Inhalation every 4 hrs for 30 days PRN Activepravastatin sodium 80 mg oral tablet (20 sources)HMG-CoA Reductase InhibitorStart: 05-06-2019 End: 04-88-6382yizx 1 tablet by mouth once dailyPravastatin 80 mg tablet Active 80 MG PO Daily May 05, 2019 11:00pm Hyperlipidemia Complies withdrug therapy sacubitril 49 mg / valsartan 51 mg oral tablet (20 sources)Angiotensin 2 Receptor BlockerStart: 12-08-2021 End: 76-50-4983qfdg 1 tablet by mouth twice dailySacubitril-Valsartan (Entresto) 49-51 mg tablet Active 1 TAB PO Twice daily March 14, 2024 11:00pm Complies with drug therapyStart: 04-07-2020 End: 96-09-5508lrvt 1 tablet by mouth twice dailySacubitril-Valsartan 24-26 mg tablet Discontinued 1 TAB PO Twice daily April 06, 2020 11:00pm March 15, 2024 12:39pmtake 1 tablet by mouth in the morningEntresto 24-26 MG tablet Take 1 tablet by mouth in the morning and 1 tablet in the evening. Activeubidecarenone 10 mg oral capsule (20 sources)Start: 09-67-1073Wmuhyzjk Q10 (Co Q-10) 10 mg Capsule Active 10 MG PO Once April 06, 2020 11:00pm Complies with drugtherapyco-enzyme Q-10 30 MG capsule Take 30 mg by mouth in the morning and 30 mg at noon and 30 mg in the e vening. Active Completed/Discontinued Medications MedicationDrug Class(es)DatesSig (Normalized)Sig (Original)azithromycin 500 mg oral tablet (10 sources)Macrolide AntimicrobialStart: 02-13-2024 End: 59-79-5937zxyy 1 mg by mouth once dailyAzithromycin (Zithromax Tri-Jacinto) 500 mg tablet Discontinued 0 PO daily 3 0 February 12, 2024 11:00pm March 15, 2024 12:35pm For 500 mg dose pack: take 500 mg once daily for 3 days orally daily; budesonide 3 mg delayed release oral capsule (20 sources)CorticosteroidStart: 02-12-2025 End: 68-03-8475inus 1 capsule by mouth once dailyBudesonide 3 mg capsule,delayed,extend.release Discontinued 3 MG PO Daily 30 30 2 April 21, 2025 7:36am May 15, 2025 1:57pm 3 mg dailyStart: 09-02-2024 End: 14-95-9390scal 3 capsules by mouth once daily, then take 2 capsules by mouth once daily, then take 1 capsule by mouth once dailyBudesonide 3 mg capsule,delayed,extend.release Discontinued 0 .ROUTE .COMPLEX 182 0 September 02, 2024 3:18pm February 12, 2025 1:22pm TAKE 3 CAPSULES BY MOUTH DAILY for FOUR weeks then TAKE 2 CAPSULESBY MOUTH DAILY for 2 (TWO) weeks, then TAKE 1 CAPSULE BY MOUTH DAILY for 2 (TWO) weeksStart: 09-02-2024 End: 42-86-8818ydig 3 tablets by mouth once daily, then take 2 tablets by mouth once daily, then take 1 tablet by mouth once dailyBudesonide 3 mg capsule,delayed,extend.release Discontinued 3 MG PO Daily 132 56 0 September 01, 2024 11:00pm September 02, 2024 3:18pm 3 tabs daily for 4 weeks, 2 tabs daily for 2 weeks, and 1 tab daily for 2 weekscarvedilol 12.5 mg oral tablet (20 sources)alpha-Adrenergic Ezequiel, beta-Adrenergic BlockerStart: 07-09-2021 End: 48-32-4080zvom 1 tablet by mouth twice dailycarvedilol (Coreg) 12.5 mg tablet Indications: Atherosclerosis of coronary artery of lime heart without angina pectoris, unspecified vessel or lesion type , Ischemic cardiomyopathy Take 1 tablet (12.5 mg) by mouth 2 times a day. 180 tablet 3 10/12/2023 04/02/2024 Discontinued (Therapy completed)Start: 08-04-1116lvry 0.5 tablet by mouth twice dailyCarvedilol 12.5 MG Oral Tablet TAKE 1/2 TABLET TWICE DAILY. Quantity: 30 Refills: 0 Ordered: 22-Dec-2021 Yaritza Huertas Start : 09-Jul-2021 ActiveStart: 06-25-2019 End: 60-88-4721mtyo 1 tablet by mouth twice daily at mealtimeCarvedilol (Coreg) 25 mg tablet Discontinued 25 MG PO Twice daily 60 3 June 24, 2019 11:00pm July 31, 2024 12:15pm must administer with a meal/foodclopidogrel 75 mg oral tablet (11 sources)P2Y12 Platelet InhibitorStart: 05-06-2019 End: 29-27-1756ufts 1 tablet by mouth once dailyClopidogrel 75 mg tablet Discontinued 75 MG PO Daily May 05, 2019 11:00pm February 13, 2024 1:14pm CAD/PTCA w/stentsferrous sulfate 325 mg oral tablet (20 sources)Start: 03-14-2023 End: 46-73-2199avsf 1 tablet by mouth once dailyFerrous Sulfate 325 mg (65 mg iron) tablet Discontinued 325 MG PO Daily 90 90 January 25, 2024 11:00pm July 31, 2024 12:16pmStart: 28-22-0659wwiv 1 tablet by mouth once daily at mealtimeFerrous Sulfate 325 (65 Fe) MG 1 tablet Orally Daily with food for 90 days March, Activefluticasone propionate 0.05 mg/actuat metered dose nasal spray (20 sources)CorticosteroidStart: 10-40-3124Krqiwnazeqc Propionate 50 MCG/ACT Nasal Suspension Quantity: 16 Refills: 0 Ordered: 15-Mar-2022 DO Start : 15-Mar-2022 Active End: 00-81-2173jxfw 2 spray(s) nasal route once dailyfluticasone (Flonase) [...] Nasal Twice a day for 30 Days Activegabapentin 300 mg oral capsule (20 sources)Anti-epileptic AgentStart: 09-25-2024 End: 96-99-4745hzmb 1 capsule by mouth once daily in the morningGabapentin (Neurontin) 300 mg capsule Discontinued 300 MG PO .QAM, Midday, QPM 90 30 1 March 19, 2025 10:28am June 18, 2025 10:30amStart: 03-15-2024 End: 38-12-0227taeq 1 capsule by mouth once daily at bedtimeGabapentin (Neurontin) 100 mg capsule Discontinued 100 MG PO Daily at bedtime 30 30 March 141:00pm July 31, 2024 12:16pmtake 1 capsule by mouth three times dailygabapentin (Neurontin) 300 mg capsule Take 1 capsule (300 mg) by mouth 3 times a day. Activeloperamide hydrochloride 2 mg oral capsule (20 sources)Opioid AgonistStart: 05-30-2024 End: 39-12-9195ntas 1 capsule by mouth four times daily as neededLoperamide (Anti-Diarrheal (Loperamide)) 2 mg capsule Discontinued 2 MG PO Four times daily as needed for loose stool 90 90 3 July 31, 2024 12:32pm May 15, 2025 1:40pmStart: 41-17-6342ohma 1 capsule by mouth once dailyloperamide (Imodium) 2 mg capsule Take 1 capsule (2 mg) by mouth once daily. 09/22/2021 ActiveStart: 06-26-3662ysdp 1 tablet by mouth once dailyLoperamide A-D 2 MG 1 tab(s) Orally qd for 90 day(s) Sep, Not-TakingmethylPREDNISolone (16 sources)CorticosteroidStart: 41-21-2167CZZM-MEDROL UP TO 40 mg Jul, 80 mgnitroglycerin 0.4 mg sublingual tablet (20 sources)Nitrate VasodilatorStart: 06-25-2019 End: 07-19-2864Vqsdcuqtmspvb (Nitrostat) 0.4 mg Tablet, Sublingual Discontinued 0.4 MG SUBLINGUAL every 5 to 15 minutes as needed for Chest Pain June 24, 2019:00pm August 16, 2024 11:15amNitroglycerin (NITROSTAT SL) Nitrostat ActiveNitrostat 0.4 MG 1 tab as directed Sublingual prn chest pain for 90 days ActivepredniSONE 20 mg oral tablet (10 sources)Start: 02-13-2024 End: 50-91-9967Jsnplxqgxp 20 mg tablet Discontinued 0 PO daily 17 0 February 12, 2024 11:00pm March 15, 2024 12:36pm 1 p.o. 3 times daily x 3 days, then twice daily until gonespironolactone 25 mg oral tablet (11 sources)Aldosterone AntagonistStart: 04-07-2020 End: 69-19-4595Dcsgxxclbcmhmg 25 mg tablet Discontinued 12.5 MG PO Daily April 06, 2020 11:00pm February 13, 2024 1:17pmStart: 04-07-2020 End: 44-91-1057xaml 12.5 mg by mouth once dailySpironolactone Discontinued 12.5 MG PO Daily April 07, 2020 12:00am February 13, 2024 2:17pmsulfamethoxazole 800 mg / trimethoprim 160 mg oral tablet (3 sources)Dihydrofolate Reductase Inhibitor Antibacterial, Sulfonamide AntimicrobialStart: 07-12-2022 End: 21-56-0176zbka 1 tablet by mouth twice dailySulfamethoxazole-Trimethoprim 800-160 MG Oral Tablet Take 1 tablet twice daily Quantity: 14 Refills: 0 Ordered: 12-Jul-2022 Ольга Brown MD Start : 12-Jul-2022 End : 19-Jul-2022 RhgahzjdOg-44m-zfwypfu RBCs (Ultratag) injection 25 millicurie (2 sources)Start: 01-09-2024 End: 28-53-5099My-99m-labeled RBCs (Ultratag) injection 25 millicurievalsartan 160 mg oral tablet (20 sources)Angiotensin 2 Receptor BlockerStart: 05-06-2019 End: 07-09-0594bnyw 1 tablet by mouth once daily in the eveningValsartan 160 mg tablet Discontinued 160 MG PO Every evening June 20, 2019 11:00pm April 07, 2020 2:30pm HTN24 hr verapamil hydrochloride 240 mg extended release oral capsule (20 sources)Calcium Channel BlockerStart: 06-21-2019 End: 75-94-4608Gkacxlorp 240 mg capsule,ext rel. pellets 24 hr Discontinued June 20, 2019 11:00pm June 21, 2019 8:43amStart: 05-06-2019 End: 97-10-3718xwgi 1 capsule by mouth once dailyVerapamil 240 mg Capsule,Ext Rel. Pellets 24 Hr Discontinued 240 MG PO Daily May 05, 2019 11:00pm June 25, 2019 10:29am HTN Problems Active Problems Problem ClassificationProblemDateDocumented DateEpisodic/ChronicAbdominal hernia (20 sources)Hernia of anterior abdominal wall; Translations: [Ventral hernia without obstruction or gangrene]Onset: 03-14-2022 Resolved: 30-33-3631BquqvzhaTvdtmajau pain (13 sources)Abdominal pain; Translations: [Unspecified abdominal pain]Episodic Acquired foot deformities (13 sources)Talipes planus; Translations: [Flat foot [pes planus] (acquired), right foot]EpisodicAcquired foot deformities (13 sources)Acquired pes planus of left foot; Translations: [Flat foot [pes planus] (acquired), left foot]EpisodicAcute bronchitis (1 source)Acute bronchitis, unspecified; Translations: [Acute bronchitis] 53-07-9254NwxaufedIpzvuelervuyvy/social admission (2 sources)Other specified counselingOnset: 09-13-2021 Resolved: 31-94-9004BsebvpgwCsxgik (20 sources)Asthma; Translations: [Unspecified asthma, uncomplicated]Onset: 09-13-2021 Resolved: 48-85-4817YykrobnSduffez dysrhythmias (13 sources)Cardiac arrhythmia; Translations: [Cardiac arrhythmia, unspecified] ChronicChronic obstructive pulmonary disease and bronchiectasis (20 sources)Chronic obstructive lung disease; Translations: [Chronic airway obstruction, not elsewhere classified]Onset: 728199-62-7897Gcwbqcf Conduction disorders (1 source)Atrioventricular block, first degree; Translations: [Atrioventricular block, first degree]Onset: 34-17-0649TosrhisQoqvufstlf heart failure; nonhypertensive (20 sources)Congestive heart failure stage C; Translations: [Congestive heart failure, unspecified]Onset: 783363-02-7333OcrcnrnIuzfvoqa atherosclerosis and other heart disease (20 sources)Coronary atherosclerosis; Translations: [Coronary atherosclerosis of lime coronary artery]Onset: 09-13-2021 Resolved: 06-60-3496JjlvcgqAothcoei atherosclerosis and other heart disease (9 sources)Presence of aortocoronary bypass graft; Translations: [Coronary angioplasty status]Onset: 84-78-5607HcrrrqddDibinzavei and other anemia (4 sources)Nutritional anemia, unspecified; Translations: [NUTRITIONAL ANEMIA UNSPECIFIED]Onset: 03-14-2022 Resolved: 78-69-3483UifmrtrzLprajjmybm and other anemia (20 sources)Macrocytic anemia; Translations: [Nutritional anemia, unspecified] 86-11-4605LmquhrwgHdrmflem mellitus with complications (5 sources)Peripheral neuropathy due to type 2 diabetes mellitus; Translations: [Type 2 diabetes mellitus withdiabetic polyneuropathy]21-92-1054UcxwsvcOzmcptrc mellitus without complication (20 sources)Type 2 diabetes mellitus without complication; Translations: [Type 2 diabetes mellitus without complications]Onset: 38-32-5730DgnbpwvXwbgcodq mellitus without complication (20 sources)Impaired fasting glycemia; Translations: [Impaired fasting glucose] Onset: 09-13-2021 Resolved: 11-72-9084CnxlybbpHjluddsol of lipid metabolism (20 sources)Hyperlipidemia; Translations: [Other and unspecified hyperlipidemia] Onset: 09-13-2021 Resolved: 63-72-6856MwbhbygBumqktirxm disorders (20 sources)Acid reflux; Translations: [Gastro-esophageal reflux disease without esophagitis]Onset: 09-13-2021 Resolved: 93-00-8698RifzbdjAfwcojmle hypertension (20 sources)Essential hypertension; Translations: [Unspecified essential hypertension]Onset: 09-13-2021 Resolved: 10-24-4773IimprovCimg and other crystal arthropathies (20 sources)Gout; Translations: [Gout, unspecified]Onset: 09-13-2021 Resolved: 47-92-0260KwspsgrEomomtkdifk (5 sources)External hemorrhoids; Translations: [Residual hemorrhoidal skin tags] 65-71-8000ElbognpqJibclxtalrcm with complications and secondary hypertension (1 source)Hypertensive heart disease with heart failure; Translations: [Hypertensive heart disease with heartfailure]Onset: 42-03-9163WlytyzyLswzfrjfs of skin (20 sources)Malignant melanoma of back; Translations: [Malignant melanoma of skin of trunk, except scrotum]Onset: 65-45-1505CxhmrywIhtzklg on above:Excsion lesions face, back and chest esurgery L3Ubteofbum of skin (3 sources)Personal history of malignant melanoma of skin; Translations: [History of malignant melanoma of theskin]Onset: 835715-66-6866Vucbnsde Miscellaneous mental health disorders (1 source)Psychophysiologic insomnia; Translations: [Insomnia, unspecified] 90-60-9224GunfcmtYsahuie (18 sources)Tinea pedis; Translations: [Tinea pedis]76-01-2277BmgzbursPzewctbyn of unspecified nature or uncertain behavior (4 sources)Neoplastic disease; Translations: [Neoplasm of unspecified behavior of bone, soft tissue, and skin]03-71-5138HmtjjfaoEktecfjelxpqy gastroenteritis (20 sources)Microscopic colitis; Translations: [Microscopic colitis, unspecified]61-66-0643VhxgzdaIyyednaogqndw gastroenteritis (20 sources)Microscopic colitis; Translations: [Other specified noninfective gastroenteritis and colitis]Onset: 09-13-2021 Resolved: 47-02-2479YdalmfqyAxgvhjqxtwd deficiencies (6 sources)Iron deficiency; Translations: [Iron deficiency anemia, unspecified] EpisodicOpen wounds of extremities (1 source)Tear of skin; Translations: [Laceration without foreign body of unspecified forearm, initial encounter]04-64-6973DmoianmfTuzmqudlsfhaum (20 sources)Osteoarthritis of hip; Translations: [Osteoarthritis of hip, unspecified]Onset: 09-13-2021 Resolved: 11-93-7451GebiwwcHvypb aftercare (20 sources)Long-term current use of drug therapy; Translations: [Other buttermaker helper (current) drug therapy]45-50-4658NwufjkwyRffym aftercare (6 sources)Other buttermaker helper (current) drug therapy; Translations: [Other buttermaker helper (current) drug therapy]Onset: 09-13-2021 Resolved: 19-67-3474EusfohcvYmlug aftercare (2 sources)Patient encounter status; Translations: [Other jail (current) drug therapy]44-71-6821PguhqccxKhgpj aftercare (2 sources)Removal of sutures done; Translations: [Encounter for removal of sutures]84-85-7066FnujxryaVaesi and unspecified benign neoplasm (20 sources)History of polyp of colon; Translations: [Personal history of colonic polyps]EpisodicOther and unspecified benign neoplasm (2 sources)Personal history of colonic polypsEpisodicOther circulatory disease (2 sources)Spider nevus; Translations: [Nevus, non-neoplastic]67-76-4581Lhboucar Other connective tissue disease (13 sources)Calcaneal spur; Translations: [Calcaneal spur, left foot]Episodic Other connective tissue disease (2 sources)Inflammatory neuropathy ; Translations: [Neuralgia and neuritis, unspecified]18-62-5488RozwwosfWlltt connective tissue disease (2 sources)Pain in left foot; Translations: [Pain in left foot]06-20-2025 EpisodicOther diseases of kidney and ureters (20 sources)Renal impairment; Translations: [Unspecified disorder of kidney and ureter]Onset: 950309-54-8820TplsqtbpHgska diseases of kidney and ureters (20 sources)Renal insufficiency; Translations: [Disorder of kidney and ureter, unspecified]EpisodicOther diseases of kidney and ureters (8 sources)Disorder of kidney and ureter, unspecified; Translations: [DISORDER KIDNEY AND URETER UNS]Onset: 09-13-2021 Resolved: 71-82-5803FbuumlqeYxanu ear and sense organ disorders (20 sources)Presbycusis; Translations: [Presbycusis, bilateral]01-17-2024 EpisodicOther ear and sense organ disorders (3 sources)Presbycusis, bilateralOnset: 03-14-2022 Resolved: 08-15-5367CjaihkyqQxlzd gastrointestinal disorders (13 sources)Dysphagia; Translations: [Dysphagia, unspecified]EpisodicOther gastrointestinal disorders (20 sources)Diarrhea; Translations: [Diarrhea, unspecified]EpisodicOther gastrointestinal disorders (13 sources)Swollen abdomen; Translations: [Abdominal distension (gaseous)] EpisodicOther gastrointestinal disorders (3 sources)Diarrhea, unspecifiedOnset: 09-13-2021 Resolved: 71-94-4748ZncrxcwaVecwz gastrointestinal disorders (8 sources)Altered bowel function; Translations: [Change in bowel habit] 69-33-0943HabbloqvIpgtz gastrointestinal disorders (2 sources)Change in bowel habit; Translations: [Other symptoms involving digestive system]65-20-3013DpxaieanScqcp gastrointestinal disorders (1 source)Passing flatus; Translations: [Flatulence]61-83-8833FdujhapiDyovc lower respiratory disease (20 sources)Chronic cough; Translations: [Cough]15-21-6665DneftskpUdnpf lower respiratory disease (5 sources)CoughOnset: 09-13-2021 Resolved: 98-26-2173TaxxpzrjFchga nervous system disorders (20 sources)Polyneuropathy; Translations: [Polyneuropathy, unspecified] 88-41-9357RegcatqSvxyj nervous system disorders (13 sources)Carpal tunnel syndrome of right wrist; Translations: [Carpal tunnel syndrome, right upper limb]ChronicOther nervous system disorders (3 sources)Polyneuropathy, unspecified; Translations: [Unspecified hereditary and idiopathic peripheral neuropathy]ChronicOther nervous system disorders (2 sources)Neuropathy; Translations: [Hereditary and idiopathic neuropathy, unspecified]04-52-0222DdlskptAwnsu non-epithelial cancer of skin (8 sources)History of malignant basal cell neoplasm of skin; Translations: [Personal history of other malignant neoplasm of skin]55-06-2536UyrrtbowDzpgn nutritional; endocrine; and metabolic disorders (1 source)Obesity, unspecified; Translations: [Obesity, unspecified]Onset: 62-02-0386MfinhjqGsjih nutritional; endocrine; and metabolic disorders (1 source)Body mass index (BMI) 34.0-34.9, adult; Translations: [Body mass index [BMI] 34.0-34.9, adult]Onset: 65-30-3676ZkkvrnwYbvgp nutritional; endocrine; and metabolic disorders (14 sources)Overweight in adulthood with body mass index of 25 or more but less than 30; Translations: [Overweight]EpisodicOther skin disorders (4 sources)Seborrheic keratosis; Translations: [Other seborrheic keratosis] 44-34-3343RijvqvvsOcibz skin disorders (4 sources)Actinic keratosis; Translations: [Actinic keratosis]02-11-2025 EpisodicOther skin disorders (2 sources)Lentigo simplex; Translations: [Other melanin hyperpigmentation] 32-97-8882EvyychlxPrzmm skin disorders (2 sources)Inflamed seborrheic keratosis; Translations: [Inflamed seborrheic keratosis]13-36-0956SsrhyshzAuasg skin disorders (2 sources)Lentiginosis; Translations: [Other melanin hyperpigmentation] 17-11-3118RcluodtaPqssa skin disorders (2 sources)Fragile skin; Translations: [Other skin changes]98-76-7995Tjkikgfk Other upper respiratory disease (20 sources)Allergic rhinitis; Translations: [Allergic rhinitis, unspecified] 95-55-8955VymisvpVbdvb upper respiratory disease (5 sources)Allergic rhinitis, unspecifiedOnset: 03-15-2022 Resolved: 62-95-8446JzvkobzNsbor upper respiratory infections (1 source)Chronic sinusitis, unspecified; Translations: [Unspecified sinusitis (chronic)]36-75-0313ZeqbuxpWfxmaziccy and visceral atherosclerosis (20 sources)Intermittent claudication; Translations: [Peripheral vascular disease, unspecified]Onset: 561000-86-9605BluoouaFnmfelqs codes; unclassified (1 source)No current problems or disability; Translations: [Other specified conditions influencing health status]Onset: 82-31-4916ZflettbnGovvodet codes; unclassified (1 source)Other general symptoms and signs; Translations: [Other general symptoms]12-02-9833CrjgzyisIpecihbw codes; unclassified (5 sources)Body mass index 20-24 - normal; Translations: [Body mass index (BMI) 24.0-24.9, adult]Onset: 919949-79-7513BwbckbjcZlwxyzctczy injury; contusion (2 sources)Contusion of upper limb; Translations: [Contusion of unspecified upper arm, initial encounter]70-11-8248GpekmdojAbyeejzmwfgx (1 source)Personal history of COVID-19; Translations: [Personal history of COVID-19]Onset: 25-12-6426Tafnpskcwfjd (1 source)Contact with and (suspected) exposure to COVID-19; Translations: [Contact with and (suspected) exposure to COVID-19]Onset: 07-05-2022 Past or Other Problems Problem ClassificationProblemDateDocumented DateEpisodic/ChronicBlindness and vision defects (5 sources)Blurring of visual image; Translations: [Other visual disturbances] Onset: 877696-21-1877PejerlwbNevrjek dysrhythmias (20 sources)Bradycardia; Translations: [Other specified cardiac dysrhythmias] Onset: 141827-32-7377FwbhvfhlOojtrpufwpio of device; implant or graft (3 sources)Arteriosclerosis of coronary artery bypass graft; Translations: [Atherosclerosis of coronary arterybypass graft(s) without angina pectoris] Onset: 07-16-2024 Resolved: 541878-68-6178JoqehbgZdjmfpxzaz associated with dizziness or vertigo (20 sources)Dizziness; Translations: [Dizziness and giddiness]Onset: 10-11-2023 14-22-9989WcwttzxiItugngngevaad symptoms and ill-defined conditions (1 source)Unspecified symptoms and signs involving the genitourinary system Onset: 09-13-2021 Resolved: 21-20-3824NtbntqzhVkbwt aftercare (1 source)Encounter for surgical aftercare following surgery on the skin and subcutaneous tissue; Translations: [Encntr for surgical aftcr fol surgery on the skin, subcu]Onset: 22-55-8260NmsxnduxIzobj aftercare (1 source)care home (current) use of aspirin; Translations: [care home (current) use of aspirin]Onset: 52-98-7721CcefkehzZlrmt aftercare (1 source)buttermaker continuous churn (current) use of antithrombotics/antiplatelets; Translations: [buttermaker continuous churn (current) use ofantithrombotics/antiplatelets]Onset: 01-25-1081RzbospfrXxvvy and unspecified benign neoplasm (11 sources)Dysplastic nevus of trunk; Translations: [Benign neoplasm of skin of trunk, except scrotum]Onset: 452163-08-2834EarylcweGdcjh and unspecified benign neoplasm (2 sources)Other benign neoplasm of skin of trunk; Translations: [Other benign neoplasm of skin of trunk]Onset: 93-27-5061UylrxyvhAmdpm circulatory disease (20 sources)Patient post angioplasty; Translations: [Other postprocedural status]Onset: 249222-75-2356KcaqbkcfMgqju infections; including parasitic (20 sources)Personal history of other infectious and parasitic diseases; Translations: [Personal history of COVID-19]Onset: 857418-56-2715Vttkcdgp Other nutritional; endocrine; and metabolic disorders (5 sources)Body mass index 25-29 - overweight; Translations: [Overweight]Onset: 04-02-2024 Resolved: 883224-56-1581BrxmxecyKwqvgacp codes; unclassified (4 sources)Intolerance to drug; Translations: [Other specified health status] Onset: 879637-65-0076VlyvmomqThuxtjvc codes; unclassified (2 sources)Other specified health status; Translations: [Other specified health status]Onset: 46-94-4034HsuvazkoRnnbziue codes; unclassified (2 sources)Body mass index (BMI) 24.0-24.9, adult; Translations: [Body mass index (BMI) 24.0-24.9, adult]Onset: 25-47-6721WlwfhvlhSluxwlqfw and history of mental health and substance abuse codes (20 sources)Ex-smoker; Translations: [Personal history of tobacco use]Onset: 364455-35-7066YgenngjfBlazzfl on above:QUIT IN THE S;Skin and subcutaneous tissue infections (15 sources)Cellulitis; Translations: [Cellulitis and abscess of unspecified sites]Onset: 808939-48-4574NwygpdqkDlqxrfwkkvbv (9 sources)Onset: 12-20-2023 Resolved: Results Test NameValueInterpretationReference RangeFacilityBasophils Auto (Bld) [#/Vol] Ordered By: Hayden Adams on 93-18-3086Jxmgrqice (Bld) [#/Vol]0.0 10 3/uL0.0-0.1 [facility] CenterBasophils/100 WBC Auto (Bld)Ordered By: Hayden Adams on 27-87-7839Dkceepzee/100 WBC (Bld)0.2 %0.2-2.0[facility] CenterCholesterol in LDL Calc [Mass/Vol]Ordered By: Hayden Adams on 47-96-8571Vtwkrhwtqpt in LDL [Mass/Vol]68.4 mg/dLFulton County Health CenterComment on above:<100 mg/dl AADJPEF177-981 mg/dl NEAR OR ABOVE AMYOPXN883- 159 mg/dl BORDERLINE QGFD561-494 mg/dl HIGH>190 mg/dl VERY HIGHCholesterol in VLDL Calc [Mass/Vol]Ordered By: Hayden Adams on 41-78-2909Qiqylucanbr in VLDL [Mass/Vol]13.6 mg/dLFulton County Health CenterEosinophils/100 WBC Auto (Bld)Ordered By: Hayden Adams on 73-75-2382Cdenmwnehai/100 WBC (Bld)0.9 %0.9-7.0 [facility] CenterErythrocyte distribution width Auto (RBC) [Ratio]Ordered By: Hayden Adams on 50-90-1301Fpnuhjhoygj distribution width (RBC) [Ratio]13.4 %11.0-15.0[facility] CenterGlobulin Calc (S) [Mass/Vol]Ordered By: Hayden Adams on 92-47-6724Xsaatfzu (S) [Mass/Vol]3.1 g/dL [facility] CenterGlomerular filtration rate (GFR) estimation in non- AmericanOrdered By: Hayden Adams on 76-93-4948NQO/1.73 sq M.predicted among non-blacks MDRD (S/P/Bld) [Vol rate/Area]42 mL/min/{1.73_m2}Low>=60 mL/min/1.73m 2FSt. Elizabeth HospitalGlucose mean value [Mass/volume] in Blood Estimated from glycated hemoglobinOrdered By: Hayden Adams on 09-02-2025 Average glucose Estimated from glycated hemoglobin (Bld) [Mass/Vol]151 mg/dL [facility] CenterHematocrit Auto (Bld) [Volume fraction]Ordered By: Hayden Adams on 24-57-5487Blaeoyubwm (Bld) [Volume fraction]39.3 %Low 42.0-54.0[facility] CenterHemoglobin A1c percentageOrdered By: Hayden Adams on 97-80-7330OuD1j (Bld) [Mass fraction]6.9 %High4.5-6.2FSt. Elizabeth HospitalComment on above:ADA RECOMMENDED LIMIT 4.0 - 6.0ADA THERAPEUTIC TARGET < 7.0ACTION SUGGESTED> 7.0Hemoglobin [Mass/volume] in Blood Ordered By: Hayden Adams on 33-50-7967Phwqaibznc (Bld) [Mass/Vol]13.0 g/dLLow 14.0-18.0[facility] CenterLaboratory - Chemistry and Chemistry - challengeOrdered By: Hayden Adams on 27-58-4026Tyvujnn [Mass/Vol]3.3 g/dLLow 3.4-5.0[facility] CenterALP [Catalytic activity/Vol]81 U/L46-116 [facility] CenterALT [Catalytic activity/Vol]26 U/L16-63 [facility] CenterAST [Catalytic activity/Vol]15 U/L15-37 [facility] CenterBilirubin [Mass/Vol]0.4 mg/dL0.2-1.0[facility] CenterBilirubin.direct [Mass/Vol]0.1 mg/dL0.0-0.2FSt. Elizabeth HospitalCalcium [Mass/Vol]8.9 mg/dL8.5-10.1FSt. Elizabeth HospitalChloride [Moles/Vol]106 mmol/E64-903TtgwnpxmkFulton County Health CenterCholesterol [Mass/Vol]140 mg/dL<=200[facility] Cholesterol in HDL [Mass/Vol]58 mg/sV76-89QcrotnfsxFulton County Health Center Comment on above:> or =60 mg/dl - LOW CARDIOVASCULAR RISK<40 mg/dl - HIGH CARDIOVASCULAR RISKCO2 [Moles/Vol]30.5 mmol/L21.0-32.0[facility] CenterCreatinine [Mass/Vol]1.59 mg/dLHigh0.70-1.30[facility] CenterGFR/1.73 sq M.predicted MDRD (S/P/Bld) [Vol rate/Area]51 mL/min/{1.73_m2} Low>=60 mL/min/1.73m 2FSt. Elizabeth HospitalGlucose [Mass/Vol]114 mg/jWOsrn97-387BnwwhleumFulton County Health CenterPotassium [Moles/Vol]4.0 mmol/L 3.5-5.1FSt. Elizabeth HospitalProtein [Mass/Vol]6.4 g/dL6.4-8.[address] [facility] Hospitalodium [Moles/Vol]142 mmol/W660-669SxxpmpbbmFulton County Health CenterTriglyceride [Mass/Vol]68 mg/dL<=150[facility] CenterUrea nitrogen [Mass/Vol]25.0 mg/dLHigh7.0-18.0[facility] CenterUrea nitrogen/Creatinine [Mass ratio]15.7 mg/mgFulton County Health CenterLaboratory - Hematology and Cell countsOrdered By: Hayden Adams on 43-31-0742Hepgmcuh granulocytes/100 WBC (Bld)0.3 %0.0-0.5FSt. Elizabeth HospitalLeukocytes [#/volume] corrected for nucleated erythrocytes in Blood by Automated counOrdered By: Hayden Adams on 75-46-8320FBA corrected for nucl RBC Auto (Bld) [#/Vol]9.6 10 3/uL4.0-11.0[facility] Lymphocytes Auto (Bld) [#/Vol]Ordered By: Hayden Adams on 26-56-2500Uzmzstelfzj (Bld) [#/Vol]2.4 10 3/uL1.2-3.8[facility] CenterLymphocytes/100 WBC Auto (Bld)Ordered By: Hayden Adams on 52-42-6972Iurwevrdcmf/100 WBC (Bld)25.5 %20.5-60.0[facility] CenterMCH Auto (RBC) [Entitic mass]Ordered By: Hayden Adams on 18-45-3205GRC (RBC) [Entitic mass]32.7 pg25.9-34.0[facility] CenterMCHC Auto (RBC) [Mass/Vol]Ordered By: Hayden Adams on 70-45-5896NLWX (RBC) [Mass/Vol]33.1 g/dL29.9-35.2FSt. Elizabeth HospitalMCV Auto (RBC) [Entitic vol]Ordered By: Hayden Adams on 17-23-1155HDZ (RBC) [Entitic vol]98.7 cCFcza31.0-94.0[facility] CenterMonocytes Auto (Bld) [#/Vol]Ordered By: Hayden Adams on 74-22-8042Btqlirzjd (Bld) [#/Vol]0.6 10 3/uL0.3-0.8[facility] CenterMonocytes/100 WBC Auto (Bld)Ordered By: Hayden Adams on 37-98-9498Vpvsibtiu/100 WBC (Bld)6.1 %1.7-12.0[facility] CenterNeutrophils Auto (Bld) [#/Vol]Ordered By: Hayden Adams on 72-89-8300Gmxqwmdwzfl (Bld) [#/Vol]6.4 10 3/uL1.4-6.5FSt. Elizabeth HospitalNeutrophils/100 WBC Auto (Bld)Ordered By: Hayden Adams on 09-02-2025 Neutrophils/100 WBC (Bld)67.0 %43.0-75.0[facility] CenterNo Panel InformationOrdered By: Hayden Adams on 70-49-7146Ipsqrdpqqmh # (Auto)0.1 10 3/uL0.0-0.7FSt. Elizabeth HospitalImmature Granulocyte # (Auto)0.03 10 3/uL0.00-0.03[facility] CenterProstate Specific Antigen Tpildf95.95 ng/mLHigh<=4.00[facility] CenterPlatelet mean volume Auto (Bld) [Entitic vol]Ordered By: Hayden Adams on 74-83-5073Qkkhbqfm mean volume (Bld) [Entitic vol]10.5 fL9.5-13.5FSt. Elizabeth Hospital Platelets Auto (Bld) [#/Vol]Ordered By: Hayden Adams on 30-97-0344Aegjiqdmd (Bld) [#/Vol]197 10 3/vG918-491FwegkauqeFulton County Health CenterRBC Auto (Bld) [#/Vol]Ordered By: Hayden Adams on 06-66-0462NGR (Bld) [#/Vol]3.98 10 6/uLLow 4.70-6.10[facility] Mary Hospitalerum or plasma albumin/globulin mass ratioOrdered By: Hayden Adams on 99-15-4579Aqscduc/Globulin [Mass ratio]1.1 {ratio}[facility] Hospitalerum or plasma anion gap determination Ordered By: Hayden Adams on 63-72-5964Bwjhy gap [Moles/Vol]9.5 mmol/LFWilson Healtherum or plasma total cholesterol/high density lipoprotein (HDL) cholesterol mass ratOrdered By: Hayden Adams on 09-02-2025 Cholesterol.total/Cholesterol in HDL [Mass ratio]2.4 {ratio}[facility] CenterComment on above:3.3 - 4.4 LOW RISK4.4 - 7.1 AVERAGE RISK7.1 - 11.0 MODERATE RISK>11.0 HIGH RISKNo Panel Informationon 81-42-3295Whsc of biopsy: tangential Informed consent: discussed and [...] taken yes Am[facility]oc[facility]: [facility] Informed consent: discussed and [...] taken yes Amount of lidocaine used: 0.[address] [facility] HealthcareBasophils Auto (Bld) [#/Vol]Ordered By: Crescencio Mendez on 90-34-9948Vvagslhkt (Bld) [#/Vol]0.0 10 3/uL0.0-0.1FSt. Elizabeth HospitalBasophils/100 WBC Auto (Bld)Ordered By: Crescencio Mendez on 05-22-2025 Basophils/100 WBC (Bld)0.5 %0.2-2.0[facility] Eosinophils/100 WBC Auto (Bld)Ordered By: Crescencio Mendez on 05-22-2025 Eosinophils/100 WBC (Bld)1.4 %0.9-7.0[facility] Erythrocyte distribution width Auto (RBC) [Ratio]Ordered By: Crescencio Mendez on 64-39-6751Cfmdyiqwcfz distribution width (RBC) [Ratio]13.9 %11.0-15.0[facility] CenterHematocrit Auto (Bld) [Volume fraction]Ordered By: Crescencio Mendez on 03-87-9981Whhphkajru (Bld) [Volume fraction]39.9 %Low42.0-54.0 [facility] CenterHemoglobin [Mass/volume] in BloodOrdered By: Crescencio Mendez on 10-62-2360Nxxgbplxon (Bld) [Mass/Vol]13.6 g/dLLow14.0-18.0 [facility] CenterINR in Platelet poor plasma by Coagulation assayOrdered By: Crescencio Mendez on 49-50-5720R[facility] Coag (PPP) [Relative time]0.99 {INR}[facility] CenterComment on above:DESIRED INR:2.0-3.0 CONDITIONS NOT LISTED BELOW2.5-3.5 FOR PROSTHETIC HEART VALVE REPLACEMENT2.5-3.5 RECURRENT THROMBOSISLaboratory - Hematology and Cell countsOrdered By: Crescencio Mendez on 06-10-8479Pvjcsnuu granulocytes/100 WBC (Bld)0.1 %0.0-0.5FSt. Elizabeth HospitalLeukocytes [#/volume] corrected for nucleated erythrocytes in Blood by Automated counOrdered By: Crescencio Mendez on 05-22-2025 WBC corrected for nucl RBC Auto (Bld) [#/Vol]8.4 10 3/uL4.0-11.0[facility] CenterLymphocytes Auto (Bld) [#/Vol]Ordered By: Crescencio Mendez on 78-21-5847Guazlwtyasu (Bld) [#/Vol]2.5 10 3/uL1.2-3.8[facility] CenterLymphocytes/100 WBC Auto (Bld)Ordered By: Crescencio Mendez on 60-77-0331Jfbnqfqjicj/100 WBC (Bld)29.6 %20.5-60.0[facility] Auto (RBC) [Entitic mass]Ordered By: Crescencio Mendez on 26-98-4392INF (RBC) [Entitic mass]32.7 pg25.9-34.0[facility] CenterHC Auto (RBC) [Mass/Vol]Ordered By: Crescencio Mendez on 08-57-3705DGJA (RBC) [Mass/Vol]34.1 g/dL29.9-35.2FSt. Elizabeth HospitalMCV Auto (RBC) [Entitic vol] Ordered By: Crescencio Mendez on 50-90-3935FQR (RBC) [Entitic vol]95.9 fLHigh 80.0-94.0[facility] CenterMonocytes Auto (Bld) [#/Vol]Ordered By: Crescencio Mendez on 34-22-2575Phuefjtml (Bld) [#/Vol]0.5 10 3/uL0.3-0.8 [facility] CenterMonocytes/100 WBC Auto (Bld)Ordered By: Crescencio Mendez on 41-29-4474Nqrlsxjdm/100 WBC (Bld)6.3 %1.7-12.0[facility] CenterNeutrophils Auto (Bld) [#/Vol]Ordered By: Crescencio Mendez on 11-34-3938Tirbjynmabl (Bld) [#/Vol]5.2 10 3/uL1.4-6.5FSt. Elizabeth HospitalNeutrophils/100 WBC Auto (Bld)Ordered By: Crescencio Mendez on 05-22-2025 Neutrophils/100 WBC (Bld)62.1 %43.0-75.0[facility] CenterNo Panel InformationOrdered By: Crescencio Mendez on 59-53-5528Gkrtxrazrqq # (Auto)0.1 10 3/uL0.0-0.7FSt. Elizabeth HospitalImmature Granulocyte # (Auto)0.01 10 3/uL0.00-0.03[facility] CenterPlatelet mean volume Auto (Bld) [Entitic vol]Ordered By: Crescencio Mendez on 83-13-1988Jixqzewf mean volume (Bld) [Entitic vol]10.0 fL9.5-13.5FSt. Elizabeth HospitalPlatelets Auto (Bld) [#/Vol]Ordered By: Crescencio Mendez on 06-01-7007Modxuuliy (Bld) [#/Vol] 199 10 3/pJ922-378CojqirrqgFulton County Health CenterProthrombin time (PT)Ordered By: Crescencio Mendez on 58-04-0298SK Coag (PPP) [Time]10.5 s9.0-11.6FSt. Elizabeth HospitalRBC Auto (Bld) [#/Vol]Ordered By: Crescencio Mendez on 45-11-4118AAE (d) [#/Vol]4.16 10 6/uLLow4.70-6.10[facility] CenterNo Panel Informationon 23-74-5688Kchpoakrtt: Intermediate Final length (cm): 5.8 Reason for [...] infection, uncontrollable bleeding, or complications. Dressing type: [facility] Health CareLesion length (cm): 0.5 Lesion width (cm): 0.4 [...] 16.0 ml Estimated blood loss: < 1.0 mlNDeaconess Incarnate Word Health System HealthcareBasophils Auto (Bld) [#/Vol]on 40-36-1494Srjzzwgxp (Bld) [#/Vol]Automated basophil count0.0-0.1 [facility] CenterBasophils (Bld) [#/Vol]0.0 10 3/uL0.0-0.1 [facility] CenterBasophils/100 WBC Auto (Bld)on 02-19-2025 Basophils/100 WBC (Bld)Automated basophil %Low0.2-2.0[facility] CenterBasophils/100 WBC (Bld)0.1 %Low0.2-2.0[facility] Cholesterol in LDL Calc [Mass/Vol]on 23-71-7093Rsktqxjrtfn in LDL [Mass/Vol] Cholesterol in LDL [Mass/volume] in Serum or Plasma by calculationFulton County Health CenterComment on above:<100 mg/dl FCDPLPF880-175 mg/dl NEAR OR ABOVE CXPVXUE519-457 mg/dl BORDERLINE HBNW433-355 mg/dl HIGH>190 mg/dl VERY HIGH Cholesterol in LDL [Mass/Vol]40.6 mg/dLFulton County Health CenterComment on above:<100 mg/dl UURIFFD157-278 mg/dl NEAR OR ABOVE LZRQECP249-521 mg/dl BORDERLINE UDUQ669-057 mg/dl HIGH>190 mg/dl VERY HIGHCholesterol in VLDL Calc [Mass/Vol]on 64-61-2611Fiiiruyrrtk in VLDL [Mass/Vol]Cholesterol in VLDL [Mass/volume] in Serum or Plasma by calculationFulton County Health Center Cholesterol in VLDL [Mass/Vol]11.4 mg/dLFulton County Health Center Eosinophils/100 WBC Auto (Bld)on 61-88-2448Rqwzhhhnfrm/100 WBC (Bld)Automated eosinophil %Low0.9-7.0[facility] CenterEosinophils/100 WBC (Bld) 0.2 %Low0.9-7.0[facility] CenterErythrocyte distribution width Auto (RBC) [Ratio]on 40-46-4998Qguifqrmuad distribution width (RBC) [Ratio] Erythrocyte distribution width [Ratio] by Automated count11.0-15.0[facility] CenterErythrocyte distribution width (RBC) [Ratio]13.2 % 11.0-15.0[facility] CenterEstimated glomerular filtration rate (GFR) non- Americanon 76-50-6456UXZ/1.73 sq M.predicted among non-blacks MDRD (S/P/Bld) [Vol rate/Area]Estimated glomerular filtration rate (GFR) non- AmericanLow>=60 mL/min/1.73m [address] [place], [place] [address]GFR/1.73 sq M.predicted among non-blacks MDRD (S/P/Bld) [Vol rate/Area]40 mL/min/{1.73_m2}Low>=60 mL/min/1.[address]m [address] [place], [place] [address]Globulin Calc (S) [Mass/Vol]on 13-39-5599Lsxzspcj (S) [Mass/Vol]Serum globulin measurement by calculation (mass/volume)[facility] Globulin (S) [Mass/Vol]3.3 g/dLFulton County Health CenterGlucose mean value [Mass/volume] in Blood Estimated from glycated hemoglobinon 02-19-2025 Average glucose Estimated from glycated hemoglobin (Bld) [Mass/Vol]Glucose mean value [Mass/volume] in Blood Estimated from glycated hemoglobinFulton County Health CenterAverage glucose Estimated from glycated hemoglobin (Bld) [Mass/Vol]137 mg/dLFulton County Health CenterHematocrit Auto (Bld) [Volume fraction]on 29-77-7012Wnrtqwsogn (Bld) [Volume fraction]Hematocrit [Volume Fraction] of Blood by Automated fmftqBto83.0-54.0[facility] CenterHematocrit (Bld) [Volume fraction]38.0 %Low42.0-54.0[facility] CenterHemoglobin A1c percentageon 05-96-8471BgP2s (Bld) [Mass fraction]Hemoglobin A1c percentageHigh4.5-6.2FSt. Elizabeth Hospital Comment on above:ADA RECOMMENDED LIMIT 4.0 - 6.0ADA THERAPEUTIC TARGET < 7.0ACTION SUGGESTED> 7.0HbA1c (Bld) [Mass fraction]6.4 %High4.5-6.2FSt. Elizabeth HospitalComment on above:ADA RECOMMENDED LIMIT 4.0 - 6.0ADA THERAPEUTIC TARGET < 7.0ACTION SUGGESTED> 7.0Hemoglobin [Mass/volume] in Bloodon 89-45-1095Abzsimjoda (Bld) [Mass/Vol]Hemoglobin [Mass/volume] in BloodLow 14.0-18.0[facility] CenterHemoglobin (Bld) [Mass/Vol]12.6 g/dL Low14.0-18.0[facility] CenterLaboratory - Chemistry and Chemistry - challengeon 09-26-5123Qigkqtt [Mass/Vol]3.5 g/dL3.4-5.0[facility] CenterALP [Catalytic activity/Vol]86 U/N76-713GifccxnrjFulton County Health CenterALT [Catalytic activity/Vol]17 U/N29-59VzehusktkFulton County Health CenterAST [Catalytic activity/Vol]14 U/DNgl25-55VabnmwoglFulton County Health CenterBilirubin [Mass/Vol]0.4 mg/dL0.2-1.0[facility] CenterBilirubin.direct [Mass/Vol]0.1 mg/dL0.0-0.2FSt. Elizabeth HospitalCalcium [Mass/Vol]9.1 mg/dL8.5-10.1FSt. Elizabeth Hospital Chloride [Moles/Vol]106 mmol/K95-287WdpvnzxbhFulton County Health CenterCholesterol [Mass/Vol]112 mg/dL<=200[facility] CenterCholesterol in HDL [Mass/Vol]60 mg/xM97-98UnnqeukojFulton County Health CenterComment on above:> or =60 mg/dl - LOW CARDIOVASCULAR RISK<40 mg/dl - HIGH CARDIOVASCULAR RISKCO2 [Moles/Vol]29.8 mmol/L21.0-32.0[facility] CenterCobalamin (Vitamin B12) [Mass/Vol]410 pg/kA524-6037PgqgydkeyFulton County Health Center Comment on above:Performed at: [employer] [facility] [address] [id number] Director: Fortunato Ortega PhD, Phone: [phone] [Mass/Vol]1.68 mg/dLHigh0.70-1.30[facility] CenterGFR/1.73 sq M.predicted MDRD (S/P/Bld) [Vol rate/Area]48 mL/min/{1.73_m2}Low>=60 mL/min/1.73m 2FSt. Elizabeth HospitalGlucose [Mass/Vol]115 mg/dLHigh 74-106[facility] CenterPotassium [Moles/Vol]4.0 mmol/L3.5-5.1 [facility] CenterProtein [Mass/Vol]6.8 g/dL6.4-8.2FWilson Healthodium [Moles/Vol]141 mmol/K022-038LjpnkrjweFulton County Health CenterTriglyceride [Mass/Vol]57 mg/dL<=150F[facility] CenterUrate [Mass/Vol]4.3 mg/dL3.5-7.2FSt. Elizabeth HospitalUrea nitrogen [Mass/Vol]25.0 mg/dLHigh7.0-18.0[facility] CenterUrea nitrogen/Creatinine [Mass ratio]14.9 mg/mgFulton County Health Center Laboratory - Hematology and Cell countson 94-83-2244Nkbaptud granulocytes/100 WBC (Bld)0.3 %0.0-0.5FSt. Elizabeth HospitalLeukocytes [#/volume] corrected for nucleated erythrocytes in Blood by Automated counon 56-40-1344PDQ corrected for nucl RBC Auto (Bld) [#/Vol]Leukocytes [#/volume] corrected for nucleated erythrocytes in Blood by Automated counHigh4.0-11.0[facility] CenterWBC corrected for nucl RBC Auto (Bld) [#/Vol]11.1 10 3/uLHigh 4.0-11.0[facility] CenterLymphocytes Auto (Bld) [#/Vol]on 87-53-0160Iyqnxcwidlz (Bld) [#/Vol]Lymphocytes [#/volume] in Blood by Automated count1.2-3.8[facility] CenterLymphocytes (Bld) [#/Vol]2.0 10 3/uL1.2-3.8[facility] CenterLymphocytes/100 WBC Auto (Bld)on 48-15-7731Idiajwhhdbs/100 WBC (Bld)Lymphocytes/100 leukocytes in Blood by Automated ypwbuFcd98.5-60.0[facility] CenterLymphocytes/100 WBC (Bld)18.0 %Low20.5-60.0[facility] CenterH Auto (RBC) [Entitic mass]on 80-03-1137KKS (RBC) [Entitic mass]MCH [Entitic mass] by Automated count 25.9-34.0[facility] (RBC) [Entitic mass]31.7 pg 25.9-34.0[facility] CenterMCHC Auto (RBC) [Mass/Vol]on 26-38-3297AGUW (RBC) [Mass/Vol]MCHC [Mass/volume] by Automated count29.9-35.2 [facility] CenterMCHC (RBC) [Mass/Vol]33.2 g/dL29.9-35.2 [facility] CenterMCV Auto (RBC) [Entitic vol]on 37-74-1635LEF (RBC) [Entitic vol]MCV [Entitic volume] by Automated vjdmbByju47.0-94.0[facility] CenterMCV (RBC) [Entitic vol]95.7 bGKqeh50.0-94.0[facility] CenterMonocytes Auto (Bld) [#/Vol]on 53-29-0629Nlfzklweo (Bld) [#/Vol]Automated blood monocyte count0.3-0.8[facility] Monocytes (Bld) [#/Vol]0.5 10 3/uL0.3-0.8[facility] Monocytes/100 WBC Auto (Bld)on 08-09-3150Erhrookve/100 WBC (Bld)Automated monocyte %1.7-12.0[facility] CenterMonocytes/100 WBC (Bld)4.4 % 1.7-12.0[facility] CenterNeutrophils Auto (Bld) [#/Vol]on 27-76-9397Sjbasexbhkg (Bld) [#/Vol]Neutrophils [#/volume] in Blood by Automated countHigh1.4-6.5FSt. Elizabeth HospitalNeutrophils (Bld) [#/Vol]8.5 10 3/uLHigh1.4-6.5FSt. Elizabeth HospitalNeutrophils/100 WBC Auto (Bld) on 46-24-2687Mdlxpvaxsur/100 WBC (Bld)Automated neutrophil %High43.0-75.0 [facility] CenterNeutrophils/100 WBC (Bld)77.0 %High43.0-75.0 [facility] CenterNo Panel Informationon 56-85-8352Lwotiksquhl # (Auto)0.0 10 3/uL0.0-0.7FSt. Elizabeth HospitalFolate15.10 ng/mL 8.60-58.90[facility] CenterImmature Granulocyte # (Auto)0.03 10 3/uL0.00-0.03[facility] CenterPlatelet mean volume Auto (Bld) [Entitic vol]on 60-20-3629Eyxbhgjw mean volume (Bld) [Entitic vol]Platelet mean volume [Entitic volume] in Blood by Automated count9.5-13.5FSt. Elizabeth HospitalPlatelet mean volume (Bld) [Entitic vol]10.3 fL9.5-13.5FSt. Elizabeth HospitalPlatelets Auto (Bld) [#/Vol]on 74-82-1908Zmhsprlvw (Bld) [#/Vol]Platelets [#/volume] in Blood by Automated issig661-501WeggyxxkjFulton County Health CenterPlatelets (Bld) [#/Vol]249 10 3/vN319-501UhwlbxbfdFulton County Health CenterRBC Auto (Bld) [#/Vol]on 87-59-8846ZHF (Bld) [#/Vol]Erythrocytes [#/volume] in Blood by Automated countLow4.70-6.10[facility] CenterRBC (Bld) [#/Vol]3.97 10 6/uLLow4.70-6.10[facility] Serum or plasma albumin/globulin mass ratioon 19-73-2480Lsdknsq/Globulin [Mass ratio]Serum or plasma albumin/globulin mass ratioFulton County Health CenterAlbumin/Globulin [Mass ratio]1.1 {ratio}[facility] Serum or plasma anion gap determinationon 20-56-9919Llenq gap [Moles/Vol]Serum or plasma anion gap determinationFulton County Health CenterAnion gap [Moles/Vol]9.2 mmol/LFWilson Healtherum or plasma total cholesterol/high density lipoprotein (HDL) cholesterol mass sajan 02-19-2025 Cholesterol.total/Cholesterol in HDL [Mass ratio]Serum or plasma total cholesterol/high density lipoprotein (HDL) cholesterol mass [facility] HospitalComment on above:3.3 - 4.4 LOW RISK4.4 - 7.1 AVERAGE RISK7.1 - 11.0 MODERATE RISK>11.0 HIGH RISKCholesterol.total/Cholesterol in HDL [Mass ratio]1.9 {ratio}[facility] CenterComment on above:3.3 - 4.4 LOW RISK4.4 - 7.1 AVERAGE RISK7.1 - 11.0 MODERATE RISK>11.0 HIGH RISKNo Panel Informationon 88-00-6591Btkv of biopsy: tangential Informed consent: discussed and [...] Photo taken Amount of lidocaine used: 0.[address] [facility] Basophils Auto (Bld) [#/Vol]on 70-46-6653Kauudypez (Bld) [#/Vol]Automated basophil count0.0-0.1FSt. Elizabeth HospitalBasophils/100 WBC Auto (Bld)on 97-89-6728Xpfjigoby/100 WBC (Bld)Automated basophil %Low0.2-2.0[facility] CenterCholesterol in LDL Calc [Mass/Vol]on 09-24-2024 Cholesterol in LDL [Mass/Vol]Cholesterol in LDL [Mass/volume] in Serum or Plasma by calculationFulton County Health CenterComment on above:<100 mg/dl WKDGITD299-151 mg/dl NEAR OR ABOVE NBCIFVE511-879 mg/dl BORDERLINE JGPI006-407 mg/dl HIGH>190 mg/dl VERY HIGHCholesterol in VLDL Calc [Mass/Vol]on 09-24-2024 Cholesterol in VLDL [Mass/Vol]Cholesterol in VLDL [Mass/volume] in Serum or Plasma by calculationFulton County Health CenterEosinophils/100 WBC Auto (Bld)on 25-70-3815Kuhkbwukiwx/100 WBC (Bld)Automated eosinophil %Low0.9-7.0 [facility] CenterErythrocyte distribution width Auto (RBC) [Ratio]on 12-38-4435Farnzeewotq distribution width (RBC) [Ratio]Erythrocyte distribution width [Ratio] by Automated count11.0-15.0[facility] CenterEstimated glomerular filtration rate (GFR) non- Americanon 41-09-7920RKI/1.73 sq M.predicted among non-blacks MDRD (S/P/Bld) [Vol rate/Area]Estimated glomerular filtration rate (GFR) non- AmericanLow>=60 mL/min/1.73m 2FSt. Elizabeth HospitalGlobulin Calc (S) [Mass/Vol]on 56-80-4545Vnjeacjo (S) [Mass/Vol]Serum globulin measurement by calculation (mass/volume)[facility] CenterGlucose mean value [Mass/volume] in Blood Estimated from glycated hemoglobinon 06-91-4344Posgwba glucose Estimated from glycated hemoglobin (Bld) [Mass/Vol]Glucose mean value [Mass/volume] in Blood Estimated from glycated hemoglobinFulton County Health CenterHematocrit Auto (Bld) [Volume fraction]on 76-13-9737Yivczkvrvc (Bld) [Volume fraction]Hematocrit [Volume Fraction] of Blood by Automated count Low42.0-54.0[facility] CenterHemoglobin [Mass/volume] in Bloodon 89-90-4081Ckafdpoygc (Bld) [Mass/Vol]Hemoglobin [Mass/volume] in BloodLow 14.0-18.0[facility] CenterIron binding capacity [Mass/volume] in Serum or Plasmaon 65-69-5468Rgqz binding capacity [Mass/Vol]Iron binding capacity [Mass/volume] in Serum or Eqwyxe004.0-450.0[facility] CenterIron saturation [Mass Fraction] in Serum or Plasmaon 81-11-5837Uzze saturation [Mass fraction]Iron saturation [Mass Fraction] in Serum or Plasma [facility] CenterLaboratory - Chemistry and Chemistry - challengeon 46-84-7047Hogzhul [Mass/Vol]3.5 g/dL3.4-5.0[facility] CenterALP [Catalytic activity/Vol]85 U/Y54-387HirhebwtpFulton County Health CenterALT [Catalytic activity/Vol]19 U/P05-47NelwntgokFulton County Health Center AST [Catalytic activity/Vol]13 U/JTri14-20LtzcksbatFulton County Health Center Bilirubin [Mass/Vol]0.8 mg/dL0.2-1.0[facility] Bilirubin.direct [Mass/Vol]0.2 mg/dL0.0-0.2FSt. Elizabeth Hospital Calcium [Mass/Vol]9.4 mg/dL8.5-10.1FSt. Elizabeth HospitalChloride [Moles/Vol]106 mmol/A30-863EupucssuhFulton County Health CenterCholesterol [Mass/Vol]140 mg/dL<=200[facility] CenterCholesterol in HDL [Mass/Vol]80 mg/oAAgxk03-89MltcbforcFulton County Health CenterComment on above:> or =60 mg/dl - LOW CARDIOVASCULAR RISK<40 mg/dl - HIGH CARDIOVASCULAR RISKCO2 [Moles/Vol]29.0 mmol/L21.0-32.0[facility] CenterCreatinine [Mass/Vol]1.67 mg/dLHigh0.70-1.30[facility] CenterFerritin [Mass/Vol]151.0 ng/mL26.0-388.0[facility] CenterGFR/1.73 sq M.predicted MDRD (S/P/Bld) [Vol rate/Area]48 mL/min/{1.73_m2}Low>=60 mL/min/1.73m 2FSt. Elizabeth HospitalGlucose [Mass/Vol]115 mg/dLHigh 74-106F[facility] CenterIron [Mass/Vol]98.0 ug/dL65.0-175.0 [facility] CenterPotassium [Moles/Vol]3.9 mmol/L3.5-5.1FSt. Elizabeth HospitalProtein [Mass/Vol]6.4 g/dL6.4-8.2FWilson Healthodium [Moles/Vol]143 mmol/R130-386MbrkjsqraFulton County Health CenterT4 [Mass/Vol]8.20 ug/dL4.50-12.10[facility] Triglyceride [Mass/Vol]58 mg/dL<=150[facility] CenterUrea nitrogen [Mass/Vol]25.0 mg/dLHigh7.0-18.0[facility] CenterUrea nitrogen/Creatinine [Mass ratio]15.0 mg/mgFulton County Health Center Laboratory - Hematology and Cell countson 17-18-1186MuK8y (Bld) [Mass fraction] 6.2 %4.5-6.2FSt. Elizabeth HospitalComment on above:ADA RECOMMENDED LIMIT 4.0 - 6.0ADA THERAPEUTIC TARGET < 7.0ACTION SUGGESTED> 7.0Immature granulocytes/100 WBC (Bld)0.2 %0.0-0.5FSt. Elizabeth Hospital Leukocytes [#/volume] corrected for nucleated erythrocytes in Blood by Automated counon 49-72-8072XPG corrected for nucl RBC Auto (Bld) [#/Vol]Leukocytes [#/volume] corrected for nucleated erythrocytes in Blood by Automated coun 4.0-11.0[facility] CenterLymphocytes Auto (Bld) [#/Vol]on 72-62-1767Muddkshsarw (Bld) [#/Vol]Lymphocytes [#/volume] in Blood by Automated count1.2-3.8[facility] CenterLymphocytes/100 WBC Auto (Bld)on 86-46-1405Yfstfentorb/100 WBC (Bld)Lymphocytes/100 leukocytes in Blood by Automated count20.5-60.0[facility] CenterH Auto (RBC) [Entitic mass]on 96-60-7874UIY (RBC) [Entitic mass]MCH [Entitic mass] by Automated count 25.9-34.0[facility] CenterMCHC Auto (RBC) [Mass/Vol]on 17-93-3956BTDI (RBC) [Mass/Vol]MCHC [Mass/volume] by Automated count29.9-35.2 [facility] CenterMCV Auto (RBC) [Entitic vol]on 36-28-3743OPP (RBC) [Entitic vol]MCV [Entitic volume] by Automated iieyyNcbs24.0-94.0[facility] CenterMonocytes Auto (Bld) [#/Vol]on 33-78-5104Jzkvmhtdt (Bld) [#/Vol]Automated blood monocyte count0.3-0.8[facility] Monocytes/100 WBC Auto (Bld)on 94-91-4994Vndxnrzwb/100 WBC (Bld)Automated monocyte %1.7-12.0[facility] CenterNeutrophils Auto (Bld) [#/Vol]on 23-97-8677Tltoqwyflnh (Bld) [#/Vol]Neutrophils [#/volume] in Blood by Automated countHigh1.4-6.5FSt. Elizabeth HospitalNeutrophils/100 WBC Auto (Bld)on 68-97-1927Xjzdpcnsgvz/100 WBC (Bld)Automated neutrophil %43.0-75.0 [facility] CenterNo Panel Informationon 03-16-2837Tdwabhlffng # (Auto)0.1 10 3/uL0.0-0.7FSt. Elizabeth HospitalImmature Granulocyte # (Auto)0.02 10 3/uL0.00-0.03[facility] CenterPlatelet mean volume Auto (Bld) [Entitic vol]on 53-11-6601Ujzlkunn mean volume (Bld) [Entitic vol] Platelet mean volume [Entitic volume] in Blood by Automated count9.5-13.5 [facility] CenterPlatelets Auto (Bld) [#/Vol]on 09-24-2024 Platelets (Bld) [#/Vol]Platelets [#/volume] in Blood by Automated -168 [facility] CenterRBC Auto (Bld) [#/Vol]on 80-33-0263BPI (Bld) [#/Vol]Erythrocytes [#/volume] in Blood by Automated countLow4.70-6.10Mount [facility]. Mary Hospitalerum or plasma albumin/globulin mass ratioon 09-24-2024 Albumin/Globulin [Mass ratio]Serum or plasma albumin/globulin mass ratio [facility]. [facility] Hospitalerum or plasma anion gap determinationon 98-13-5335Qbxae gap [Moles/Vol]Serum or plasma anion gap determinationMount St. Mary Hospitalerum or plasma total cholesterol/high density lipoprotein (HDL) cholesterol mass sajan 47-44-5680Omspzddowus.total/Cholesterol in HDL [Mass ratio]Serum or plasma total cholesterol/high density lipoprotein (HDL) cholesterol mass [facility] HospitalComment on above:3.3 - 4.4 LOW RISK4.4 - 7.1 AVERAGE RISK7.1 - 11.0 MODERATE RISK>11.0 HIGH RISKNo Panel InformationOrdered By: Crescencio Mendez on 36-08-2008Mfzvjwjmzhvkd Pathology TestSee commentFulton County Health CenterComment on above:See report. Scanned copy available in EMR.Pathology Request for Lab Corpon 08-26-2024 Pathology Request for Lab CorpNormAdventHealth North Pinellas Physician GroupComment on above:Order Comment: PATHOLOGY GI SPECIMENResult Comment: See report. Scanned copy available in EMR. PERFORMED BY: [place] [address] PATHOLOGIST CONFIGURATION TECHNICIAN JUDY ROMERO M.D.Performed By: #### PATH TO [facility] #### [address] US CAROTID ARTERY DUPLEX BILATERALon 03-75-1750QLSW US CAROTID ARTERY DUPLEX BILATERALNorth [facility] [address], [address], [place] [address] Vascular Lab Report [facility] US CAROTID ARTERY DUPLEX BILATERAL Patient Name: JUNIOR Hines TORRES Reading Physician: [id number] Jimmie Arellano MD, [facility] Study Date: 08/20/2024 Ordering Provider: [id number] BUD BEATTY MRN/PID: [id number] Fellow: Technologist: Jana Aguiar RD, T Date of /Age: 705/14/1945 / 79 years Technologist 2: Gender: M Admission Status: Outpatient Location Performed: [facility] Diagnosis/ICD: Dizziness and giddiness-R42 Indication: CAD, HTN, Hyperlipidemia, Former Smoker, CABG, Ischemic Cardiomyopathy, COPD, CHF, PTCA, Overweight, Renal Insufficiency CPT Codes: 44622 Cerebrovascular Carotid Duplex scan complete CONCLUSIONS: Right [...] cm/s Right Left ICA/CCA Ratio 1.0 0.7 08148 Jimmie Arellano MD, FACC Final [facility] CenterBasophils Auto (Bld) [#/Vol]on 42-64-9360Icsiowjxc (Bld) [#/Vol]0.0 10 3/uL0.0-0.1FSt. Elizabeth HospitalBasophils/100 WBC Auto (Bld)on 34-98-0395Dbuijiqfl/100 WBC (Bld) 0.2 %0.2-2.0[facility] CenterCholesterol in LDL Calc [Mass/Vol] on 39-05-4712Omrzoqffwiu in LDL [Mass/Vol]55.0 mg/dLFulton County Health CenterComment on above:<100 mg/dl OZECTHK918-639 mg/dl NEAR OR ABOVE MREFBKF908- 159 mg/dl BORDERLINE DYCX715-070 mg/dl HIGH>190 mg/dl VERY HIGHCholesterol in VLDL Calc [Mass/Vol]on 84-39-4206Quksiabhgqa in VLDL [Mass/Vol]24.0 mg/dL [facility] CenterEosinophils/100 WBC Auto (Bld)on 02-29-2024 Eosinophils/100 WBC (Bld)1.2 %0.9-7.0[facility] Erythrocyte distribution width Auto (RBC) [Ratio]on 41-38-8100Tchucujbnom distribution width (RBC) [Ratio]13.4 %11.0-15.0[facility] Estimated glomerular filtration rate (GFR) non- Americanon 02-29-2024 GFR/1.73 sq M.predicted among non-blacks MDRD (S/P/Bld) [Vol rate/Area]41 mL/min/{1.73_m2}>=60[facility] CenterGlobulin Calc (S) [Mass/Vol]on 48-63-6333Iodijeqp (S) [Mass/Vol]3.2 g/dLFulton County Health CenterGlucose mean value [Mass/volume] in Blood Estimated from glycated hemoglobinon 66-24-0106Dhlbxov glucose Estimated from glycated hemoglobin (Bld) [Mass/Vol]146 mg/dLFulton County Health CenterHematocrit Auto (Bld) [Volume fraction]on 02-27-0848Jdirsfqzpx (Bld) [Volume fraction]40.6 %42.0-54.0 [facility] CenterHemoglobin [Mass/volume] in Bloodon 02-29-2024 Hemoglobin (Bld) [Mass/Vol]13.0 g/dL14.0-18.0[facility] Laboratory - Chemistry and Chemistry - challengeon 02-28-1098Pykrbkg [Mass/Vol] 3.1 g/dL3.4-5.0[facility] CenterALP [Catalytic activity/Vol]87 U/N03-112DestiezjnFulton County Health CenterALT [Catalytic activity/Vol]28 U/L 16-63[facility] CenterAST [Catalytic activity/Vol]20 U/L15-37 [facility] CenterBilirubin [Mass/Vol]0.7 mg/dL0.2-1.0[facility] CenterBilirubin.direct [Mass/Vol]0.1 mg/dL0.0-0.2FSt. Elizabeth HospitalCalcium [Mass/Vol]9.2 mg/dL8.5-10.1FSt. Elizabeth HospitalChloride [Moles/Vol]105 mmol/V90-531VfdfkqpowFulton County Health CenterCholesterol [Mass/Vol]136 mg/dL<=200[facility] Cholesterol in HDL [Mass/Vol]57 mg/nJ47-53WtygywlkpFulton County Health Center Comment on above:> or =60 mg/dl - LOW CARDIOVASCULAR RISK<40 mg/dl - HIGH CARDIOVASCULAR RISKCO2 [Moles/Vol]29.5 mmol/L21.0-32.0[facility] CenterCobalamin (Vitamin B12) [Mass/Vol]394.0 pg/mL193.0-986.0[facility] CenterCreatinine [Mass/Vol]1.62 mg/dL0.70-1.30[facility] CenterFerritin [Mass/Vol]205.0 ng/mL26.0-388.0[facility] CenterGFR/1.73 sq M.predicted MDRD (S/P/Bld) [Vol rate/Area]50 mL/min/{1.73_m2}>=60[facility] CenterGlucose [Mass/Vol]96 mg/dL 74-106F[facility] CenterIron [Mass/Vol]57.0 ug/dL65.0-175.0 [facility] CenterPotassium [Moles/Vol]4.2 mmol/L3.5-5.1FSt. Elizabeth HospitalProtein [Mass/Vol]6.3 g/dL6.4-8.2FWilson Healthodium [Moles/Vol]142 mmol/G273-391WemjgbngjFulton County Health CenterT4 [Mass/Vol]7.20 ug/dL4.50-12.10[facility] Triglyceride [Mass/Vol]120 mg/dL<=150F[facility] CenterTSH Qn 3.785 m[IU]/L0.358-3.740[facility] CenterUrea nitrogen [Mass/Vol]20.0 mg/dL7.0-18.0[facility] CenterUrea nitrogen/Creatinine [Mass ratio]12.3 mg/mgFulton County Health Center Laboratory - Hematology and Cell countson 45-55-8094RcJ5x (Bld) [Mass fraction] 6.7 %4.5-6.2FSt. Elizabeth HospitalComment on above:ADA RECOMMENDED LIMIT 4.0 - 6.0ADA THERAPEUTIC TARGET < 7.0ACTION SUGGESTED> 7.0Immature granulocytes/100 WBC (Bld)0.2 %0.0-0.5FSt. Elizabeth Hospital Leukocytes [#/volume] corrected for nucleated erythrocytes in Blood by Automated counon 53-47-9981PFZ corrected for nucl RBC Auto (Bld) [#/Vol]8.6 10 3/uL 4.0-11.0[facility] CenterLymphocytes Auto (Bld) [#/Vol]on 49-39-5059Srrflwlvzbx (Bld) [#/Vol]1.7 10 3/uL1.2-3.8[facility] CenterLymphocytes/100 WBC Auto (Bld)on 52-94-5275Wiypppakopm/100 WBC (Bld)20.1 % 20.5-60.0[facility] CenterH Auto (RBC) [Entitic mass]on 16-58-4752WKH (RBC) [Entitic mass]31.2 pg25.9-34.0[facility] CenterMCHC Auto (RBC) [Mass/Vol]on 31-27-4219MBKJ (RBC) [Mass/Vol]32.0 g/dL 29.9-35.2FSt. Elizabeth HospitalMCV Auto (RBC) [Entitic vol]on 15-27-6135XYR (RBC) [Entitic vol]97.4 fL80.0-94.0[facility] CenterMonocytes Auto (Bld) [#/Vol]on 48-93-1845Wyzsdhoao (Bld) [#/Vol]0.7 10 3/uL0.3-0.8[facility] CenterMonocytes/100 WBC Auto (Bld)on 79-01-8007Oyjmmkcng/100 WBC (Bld)7.8 %1.7-12.0[facility] Neutrophils Auto (Bld) [#/Vol]on 86-71-3294Lwcahauhlvg (Bld) [#/Vol]6.0 10 3/uL 1.4-6.5FSt. Elizabeth HospitalNeutrophils/100 WBC Auto (Bld)on 43-15-8590Abbpwdcmwqd/100 WBC (Bld)70.5 %43.0-75.0[facility] CenterNo Panel Informationon 17-00-1040Mbuiqauxjsj # (Auto)0.1 10 3/uL0.0-0.7 [facility] CenterImmature Granulocyte # (Auto)0.02 10 3/uL 0.00-0.03[facility] CenterPlatelet mean volume Auto (Bld) [Entitic vol]on 19-35-0240Mewbugfq mean volume (Bld) [Entitic vol]10.3 fL 9.5-13.5Firelands Regional Medical CenterPlatelets Auto (Bld) [#/Vol]on 24-65-9242Udpqxizty (Bld) [#/Vol]167 10 3/gM003-276TzelxasgzFulton County Health CenterRBC Auto (Bld) [#/Vol]on 71-31-1183KPI (Bld) [#/Vol]4.17 10 6/uL4.70-6.[address] [facility] Hospitalerum or plasma albumin/globulin mass ratioon 87-71-5376Qngjcox/Globulin [Mass ratio]1.0 {ratio}[facility] Mary Hospitalerum or plasma anion gap determinationon 40-50-7943Vzrxo gap [Moles/Vol] 11.7 mmol/LFWilson Healtherum or plasma total cholesterol/high density lipoprotein (HDL) cholesterol mass sajan 02-29-2024 Cholesterol.total/Cholesterol in HDL [Mass ratio]2.4 {ratio}[facility] CenterComment on above:3.3 - 4.4 LOW RISK4.4 - 7.1 AVERAGE RISK7.1 - 11.0 MODERATE RISK>11.0 HIGH RISKNM HEART BLOOD POOL EJECTION FRACTION WALL MOTION (MUGA)on 84-65-6391CH HEART BLOOD POOL EJECTION FRACTION WALL MOTION (MUGA)Interpreted By: Karen Savage and Giannuzzi Michael STUDY: MUGA Performing facility: [facility], [address] [place] [address], [address] [place] [address] Provider: Marlene Beatty DO, [facility] PCP: Dr. Teddy Adams Supervising provider: Karen Savage MD INDICATION: ICM CHF II HISTORY: Gender: M; Age: 78 y/o ; Height: HT 177.8 cm cm; Weight: WT 80.74 kg kg. CAD; High Cholesterol; HTN; Arrhythmias; Quit smoking unknown years ago. Cardiac catheterization on 2018. CABG on 1994. PTCA on 2004. COMPARISON: Previous nuclear testing completed [id number] EF=51% at [facility]. ACCESSION NUMBER(S): [id number] ORDERING CLINICIAN: BUD BEATTY TECHNIQUE: The patient received an IV injection of 3 ml of stannous pyrophosphate (PYP) using the in-vivo method of labeling red blood cells. After 25 minutes the patient received another IV injection of 26.3 mCi of Technetium 99m pertechnetate. Planar images of the left ventricle were obtained in the COLOMBIAN 45, Lt Lateral and anterior projections. FINDINGS: The right ventricle was normal. The left ventricle was normal in size. Regional wall motion was normal. Global resting LVEF was normal- at 67%. IMPRESSION: Normal resting right ventricular function. Normalresting left ventricular function. Left ventricular ejection fraction is 67%. NO PREVIOUS STUDY AVAILABLE FOR COMPARISON Signed by: Karen Savage 01/09/2024 5:34 PM Dictation workstation: [id number] Campus Medical Center NM Heart Wall motion and Ejection fractionon 13-60-8523Snbaqn resting right ventricular function. Normalresting left ventricular function. Left ventricular ejection fraction is 67%. NO PREVIOUS STUDY AVAILABLE FOR COMPARISON Signed by: Karen Savage 01/09/2024 5:34 PM Dictation workstation: [id number] By: Karen Savage and Giannuzzi Michael STUDY: ADIA Performing facility: [facility], [address] [place] [address], [address], [address] Provider: Marlene Beatty DO, [facility] PCP: Dr. Teddy Adams Supervising provider: Karen Savage MD INDICATION: ICM CHF II HISTORY: Gender: M; Age: 78 y/o ; Height: HT 177.8 cm cm; Weight: WT 80.74 kg kg. CAD; High Cholesterol; HTN; Arrhythmias; Quit smoking unknown years ago. Cardiac catheterization on 2018. CABG on 1994. PTCA on 2004. COMPARISON: Previous nuclear testing completed EF=51% at [facility]. ACCESSION NUMBER(S): [id number] ORDERING CLINICIAN: BUD BEATTY TECHNIQUE: The patient received an IV injection of 3 ml of stannous pyrophosphate (PYP) using the in-vivo method of labeling red blood cells. After 25 minutes the patient received another IV injection of 26.3 mCi of Technetium 99m pertechnetate. Planar images of the left ventricle were obtained in the COLOMBIAN 45, Lt Lateral and anterior projections. FINDINGS: The right ventricle was normal. The left ventricle was normal in size. Regional wall motion was normal. Global resting LVEF was normal- at 67%. MMODALKaren Savage MD - 01/09/2024 Interpreted By: Karen Savage and Giannuzzi Michael STUDY: MUGA Performing facility: [facility], [address] [place] [address], [address], [address] Provider: Marlene Beatty DO, [facility] PCP: Dr. Teddy Adams Supervising provider: Karen Savage MD INDICATION: ICM CHF II HISTORY: Gender: M; Age: 78 y/o ; Height: HT 177.8 cm cm; Weight: WT 80.74 kg kg. CAD; High Cholesterol; HTN; Arrhythmias; Quit smoking unknown years ago. Cardiac catheterization on 2004, 2018. CABG on 1994. PTCA on 2004. COMPARISON: Previous nuclear testing completed [id number] EF=51% at [facility]. ACCESSION NUMBER(S): [id number] ORDERING CLINICIAN: BUD BEATTY TECHNIQUE: The patient received an IV injection of 3 ml of stannous pyrophosphate (PYP) using the in-vivo method of labeling red blood cells. After 25 minutes the patient received another IV injection of 26.3 mCi of Technetium 99m pertechnetate. Planar images of the left ventricle were obtained in the COLOM[place]AN 45, Lt Lateral and anterior projections. FINDINGS: The right ventricle was normal. The left ventricle was normal in size. Regional wall motion was normal. Global resting LVEF was normal- at 67%. IMPRESSION: Normal resting right ventricular function. Normalresting left ventricular function. Left ventricular ejection fraction is 67%. NO PREVIOUS STUDY AVAILABLE FOR COMPARISON Signed by: Karen Savage 01/09/2024 5:34 PM Dictation workstation: [id number] [facility] Work Phone: Radiology Study observation (narrative)[facility] Work Phone: NM Heart Wall motion and Ejection fractionOrdered By: Karen Savage on 03-00-8431SpyxxotlfwOhioHealth Nelsonville [facility] Center Work Phone: cb AUTO DIFFon 84-39-1517FDGO #0.0 103/ulNormal 0.0-0.1The Cherrington HospitalComment on above:Performed By: #### FOL, IRON #### [facility] [address] [place] [address] Dr. Lashell CaballeroBasophils/100 WBC (Bld)0.6 %Normal0.2-2.0[facility] Comment on above:Performed By: #### FOL, IRON #### [facility] [address] [place] [address] Dr. Lashell Ramirez #0.1 103/ulNormal0.0-0.7The Cherrington HospitalComment on above: Performed By: #### FOL, IRON #### [facility] [address] [place] [address] Dr. Lashell Bowensosinophils/100 WBC (Bld)2.2 %Normal0.9-7.0[facility] Comment on above:Performed By: #### FOL, IRON #### [facility] [address] [place] [address] Dr. Lashell Bowensrythrocyte distribution width (RBC) [Ratio]13.6 %Tghsek39.0-15.0 The [facility]rington HospitalComment on above:Performed By: #### FOL, IRON #### [facility] [address] [place] [address] Dr. Lashell CaballeroHematocrit (Bld) [Volume fraction]42.2 %Zipsvq62.0-54.0The [facility]rington HospitalComment on above:Performed By: #### FOL, IRON #### [facility] [address] [place] [address] Dr. Lashell CaballeroHemoglobin (Bld) [Mass/Vol]13.7 g/dLCritically low14.0-18.0The [facility] HospitalComment on above:Performed By: #### FOL, IRON #### [facility] [address] [place] [address] Dr. Lashell Fuentes #0.02 10e3/ulNormal0.00-0.03The [facility] HospitalComment on above:Performed By: #### FOL, IRON #### [facility] [address] [place] [address] Dr. Lashell Fuentes %0.3 %Normal0.0-0.5The [facility] HospitalComment on above: Performed By: #### FOL, IRON #### [facility] [address] [place], [place] [address] Dr. Lashell Peterson #1.7 103/ulNormal1.2-3.8The Cherrington HospitalComment on above:Performed By: #### FOL, IRON #### [facility] [address] [place] [address] Dr. Lashell Bradfordhocytes/100 WBC (Bld)27.5 %Fvyxij98.5-60.0The [facility]rington HospitalComment on above:Performed By: #### FOL, IRON #### [facility] [address] [place] [address] Dr. Lashell Higgins DIFF REQNONormalThe Cherrington HospitalComment on above: Performed By: #### FOL, IRON #### [facility] [address] [place] [address] Dr. Lashell Bell (RBC) [Entitic mass]30.9 gbLdoweg15.9-34.0The [facility] HospitalComment on above:Performed By: #### FOL, IRON #### [facility] [address] [place] [address] Dr. Lashell Lazaro (RBC) [Mass/Vol]32.5 g/qRWrqniq66.9-35.2The [facility] HospitalComment on above:Performed By: #### FOL, IRON #### [facility] [address] [place] [address] Dr. Lashell Huston (RBC) [Entitic vol]95.0 fLCritically high80.0-94.0The [facility] HospitalComment on above:Performed By: #### FOL, IRON #### [facility] [address] [place] [address] Dr. Lashell Mckee #0.5 103/ulNormal0.3-0.8The [facility] HospitalComment on above:Performed By: #### FOL, IRON #### [facility] [address] [place] [address] Dr. Lashell Gonzalezocytes/100 WBC (Bld)7.4 %Normal1.7-12.0[facility] Comment on above:Performed By: #### FOL, IRON #### [facility] [address] [place] [address] Dr. Lashell James #3.9 103/ulNormal1.4-6.5The [facility] HospitalComment on above:Performed By: #### FOL, IRON #### [facility] [address] [place] [address] Dr. Lashell Crespoutrophils/100 WBC (Bld)62.0 %Ptfirf11.0-75.0The [facility] HospitalComment on above:Performed By: #### FOL, IRON #### [facility] [address] [place] [address] Dr. Lashell Mcmahon mean volume (Bld) [Entitic vol]10.3 fLNormal9.5-13.5The [facility] HospitalComment on above:Performed By: #### FOL, IRON #### [facility] [address] [place] [address] Dr. Lashell CaballeroPLT195 103/xlBfkowz093-959Ybw [facility] HospitalComment on above: Performed By: #### FOL, IRON #### [facility] [address] [place] [address] Dr. Lashell CaballeroRBC4.44 106/ulCritically low4.70-6.10The [facility] HospitalComment on above:Performed By: #### FOL, IRON #### [facility] [address] [place] [address] Dr. Lashell CaballeroWBC6.3 103/ulNormal4.0-11.0The [facility] HospitalComment on above: Performed By: #### FOL, IRON #### [facility] [address] [address] [address] Lashell CaballeroGLYCOHEMOGLOBIN A1Con [id number] RECOMMENDATIONSEE BELOWNoClermont County HospitalComment on above:Result Comment: ADA RECOMMENDED LIMIT 4.0 - 6.0 ADA THERAPEUTIC TARGET < 7.0 ACTION SUGGESTED > 7.0Performed By: #### A1C #### [facility] [address] [address] [address] Lashell CaballeroGlucose [Mass/Vol]137 mg/dLNormDoctors HospitalComment on above:Performed By: #### A1C #### [facility] [address] [place] [address] Dr. Lashell CaballeroHbA1c (Bld) [Mass fraction]6.4 %Critically high4.5-6.2The [facility]rington HospitalComment on above:Performed By: #### A1C #### [facility] [address] [place] [address] Dr. Lashell Noel 25-48-7252Gfer [Mass/Vol]61.0 ug/dLCritically low 65.0-175.0The [facility] HospitalComment on above:Performed By: #### FOL, IRON #### [facility] [address] [place] [address] Dr. Lashell CaballeroLIPID PROFILEon [id number]-HDL RATIO NORMSEE BELOWHolmes County Joel Pomerene Memorial HospitalComment on above:Result Comment: 3.3 - 4.4 LOW RISK 4.4 - 7.1 AVERAGE RISK 7.1 - 11.0 MODERATE RISK >11.0 HIGH RISKPerformed By: #### LIPID, LIVER, BMP #### [facility] [address] [place] [address] Dr. Lashell CaballeroCholesterol [Mass/Vol]138 mg/dLNormal<=200The [facility] Comment on above:Performed By: #### LIPID, LIVER, BMP #### [facility] [address] [place] [address] Dr. Lashell CaballeroCholesterol in HDL [Mass/Vol]50 mg/kSFlfyny40-50Vfs [facility] HospitalComment on above:Performed By: #### LIPID, LIVER, BMP #### [facility] [address] [address] [address] Lashell Abernathyesterol in LDL [Mass/Vol]68.0 mg/dLHolmes County Joel Pomerene Memorial HospitalCommunson healthcare [facility] on above:Performed By: #### LIPID, LIVER, BMP #### [facility] [address] [address] [address] Lashell Ford.total/Cholesterol in HDL [Mass ratio]2.8 {ratio} NormalCleveland Clinic Marymount HospitalCommunson healthcare [facility]ist[facility] hospital on above:Performed By: #### LIPID, LIVER, BMP #### [facility] [address] [address] [address] Lashell Mcnally NORMAL> or = 60 mg/dl - LOW CARDIOVASCULAR RISK <40 mg/dl - HIGH CARDIOVASCULAR RISKHolmes County Joel Pomerene Memorial HospitalComment on above:Performed By: #### LIPID, LIVER, BMP #### [facility] [address] [address] [address] Lashell Culver CALC NORMALSEE BELOWNoSumma HealthComment on above:Result Comment: <100 mg/dl OPTIMAL 100 - 129 mg/dl NEAR OR ABOVE OPTIMAL 130 - 159 mg/dl BORDERLINE HIGH 160 - 189 mg/dl HIGH >190 mg/dl VERY HIGH Performed By: #### LIPID, LIVER, BMP #### [facility] [address] [address] [address] Lashell CaballeroTriglyceride [Mass/Vol]100 mg/dLNormal<=150[facility] Comment on above:Performed By: #### LIPID, LIVER, BMP #### [facility] [address] [address] [address] Lashell PrinceLDL CALC20.0 mg/dLHolmes County Joel Pomerene Memorial HospitalCommunson healthcare [facility] hospital on above: Performed By: #### LIPID, LIVER, BMP #### [facility] [address] [address] [address] Lashell Patel PROFILEon [id number] [Mass/Vol]3.5 g/dLNormal3.4-5.0 The [facility]rington HospitalComment on above:Performed By: #### LIPID, LIVER, BMP #### [facility] [address] [address] [address] Lashell CaballeroAlbumin/Globulin [Mass ratio]1.1 {ratio}NormalThe [facility]rington HospitalComment on above:Performed By: #### LIPID, LIVER, BMP #### [facility] [address] [address] [address] Lashell Mason [Catalytic activity/Vol]75 U/TCloedr40-915Kko [facility] HospitalComment on above:Performed By: #### LIPID, LIVER, BMP #### [facility] [address] [address] [address] Lashell oBland [Catalytic activity/Vol]22 U/IGhwtkv28-89Dau [facility] HospitalComment on above:Performed By: #### LIPID, LIVER, BMP #### [facility] [address] [place] [address] Dr. Lashell Olmos [Catalytic activity/Vol]17 U/GFuktap49-89Oto [facility] on above:Performed By: #### LIPID, LIVER, BMP #### [facility] [address] [place] [address] Dr. Lashell Sánchez, CONJUGATED0.1 mg/dLNormal0.0-0.2[facility] Comment on above:Performed By: #### LIPID, LIVER, BMP #### [facility] [address] [place] [address] Dr. Lashell Robirubin [Mass/Vol]0.4 mg/dLNormal0.2-1.0[facility] Comment on above:Performed By: #### LIPID, LIVER, BMP #### [facility] [address] [place] [address] Dr. Lashell CaballeroGlobulin (S) [Mass/Vol]3.3 g/dLNormalThe [facility] HospitalCommunson healthcare [facility] hospital on above:Performed By: #### LIPID, LIVER, BMP #### [facility] [address] [place] [address] Dr. Lashell CaballeroProtein [Mass/Vol]6.8 g/dLNormal6.4-8.2[facility] Comment on above:Performed By: #### LIPID, LIVER, BMP #### [facility] [address] [address] [address] Lashell CrawleyF CHEM 8 (BAS METB)on 26-99-9888Zfmem gap [Moles/Vol]12.2 mmol/LNormalThe [facility]rington HospitalComment on above:Performed By: #### LIPID, LIVER, BMP #### [facility] [address] [address] [address] Lashell CaballeroCalcium [Mass/Vol]9.1 mg/dLNormal8.5-10.1[facility] Comment on above:Performed By: #### LIPID, LIVER, BMP #### [facility] [address] [address] [address] Lashell CaballeroChloride [Moles/Vol]107 mmol/JEcqdwp00-377PyjCleveland Clinic Marymount Hospital Comment on above:Performed By: #### LIPID, LIVER, BMP #### [facility] [address] [address] [address] Lashell CaballeroCO2 [Moles/Vol]28.9 mmol/NTvzelm59.0-32.0[facility] Comment on above:Performed By: #### LIPID, LIVER, BMP #### [facility] [address] [address] [address] Lashell CaballeroCreatinine [Mass/Vol]1.68 mg/dLCritically high0.70-1.30The [facility] HospitalComment on above:Performed By: #### LIPID, LIVER, BMP #### [facility] [address] [address] [address] Lobo ChangEGFR-AF HPRKOBAW55 mL/min/1.54q7Bbpuvktjfh low>=60The [facility] HospitalComment on above:Performed By: #### LIPID, LIVER, BMP #### [facility] [address] [address] [address] Lashell BowensGFR-NON AF EDOODMZT44 mL/min/1.83g1Zrctcuspgh low>=60The Emily HospitalComment on above:Performed By: #### LIPID, LIVER, BMP #### [facility] [address] [address] [address] Lashell CaballeroGlucose [Mass/Vol]114 mg/dLCritically ctvv93-807Wpz [facility] HospitalComment on above:Performed By: #### LIPID, LIVER, BMP #### [facility] [address] [address] [address] Lashell CaballeroPotassium [Moles/Vol]4.1 mmol/LNormal3.5-5.1The [facility] Comment on above:Performed By: #### LIPID, LIVER, BMP #### [facility] [address] [place] [address] Dr. Lashell CaballeroSodium [Moles/Vol]144 mmol/UOzgeuo760-050Yel [facility] Comment on above:Performed By: #### LIPID, LIVER, BMP #### [facility] [address] [place] [address] Dr. Lashell CaballeroUrea nitrogen [Mass/Vol]25.0 mg/dLCritically high7.0-18.0The [facility] HospitalComment on above:Performed By: #### LIPID, LIVER, BMP #### [facility] [address] [place] [address] Dr. Lashell Snell nitrogen/Creatinine [Mass ratio]14.9 mg/mgNormalThe [facility] HospitalComment on above:Performed By: #### LIPID, LIVER, BMP #### [facility] [address] [place] [address] Dr. Lashell CaballeroVITAMIN B12on 91-95-0359Uyzzytypr (Vitamin B12) [Mass/Vol]368.0 pg/qTFnnerk654.0-986.0The [facility] HospitalComment on above:Performed By: #### FOL, IRON #### [facility] [address] [place] [address] Dr. Lashell Morales Visit (Cardiology)on 59-80-5683Oacajz-up visit Diagnoses/Problems Assessed Atherosclerosis of coronary artery of lime heart without angina pectoris (414.01) (I25.10) Status [...] (C43.59) Orders Atherosclerosis of coronary artery of lime heart without angina pectoris Renew: Aspirin EC 81 MG Oral Tablet Delayed Release; TAKE 1 TABLET DAILY Atherosclerosis of coronary artery of lime heart without angina pectoris, Hyperlipidemia Renew: Pravastatin Sodium 80 MG Oral Tablet; TAKE 1 TABLET DAILY Atherosclerosis of coronary artery of lime heart without angina pectoris, Status post angioplasty [...] above anatomy with known occlusions of the lime RCA and circumflex, patent LAD and stents [...] cardiovascular events. He has underlying history of [place] Heart Association class II/C heart failure, COPD, [...] have (more content not included)...NormalUH TouchworksTobacco Screening.on 66-78-5801Xsypm depression screening assessmentSouth County Hospital [facility] 250 DO Work Phone: Fall risk assessmenta) No falls within the last year [facility] 250 DO Work Phone: Tobacco use status CPHSb) [facility] 250 DO Work Phone: Tobacco Screening.on [id number] risk assessmenta) [facility] falls within the [facility] year[facility] 100 Work Phone: Tobacco use status CPHSb) [facility] 100 Work Phone: CBC AUTO DIFFon 74-18-7060XLPK #0.0 103/ulNormal 0.0-0.1[facility] HospitalComment on above:Performed By: #### CBC #### [facility] [address] [address] [address] Lashell CaballeroBasophils/100 WBC (Bld)0.3 %Normal0.2-2.0[facility] Comment on above:Performed By: #### CBC #### [facility] [address] [address] [address] Lashell Ramirez #0.1 103/ulNormal0.0-0.7The [facility] HospitalComment on above: Performed By: #### CBC #### [facility] [address] [address] [address] Lashell Bowensosinophils/100 WBC (Bld)1.4 %Normal0.9-7.0[facility] Comment on above:Performed By: #### CBC #### [facility] [address] [place] [address] Dr. Lashell Bowensrythrocyte distribution width (RBC) [Ratio]13.2 %Renycl68.0-15.0 The [facility]rington HospitalComment on above:Performed By: #### CBC #### [facility] [address] [place] [address] Dr. Lashell CaballeroHematocrit (Bld) [Volume fraction]42.6 %Bvadea01.0-54.0The [facility] HospitalComment on above:Performed By: #### CBC #### [facility] [address] [place] [address] Dr. Lashell CaballeroHemoglobin (Bld) [Mass/Vol]13.9 g/dLCritically low14.0-18.0The [facility] HospitalComment on above:Performed By: #### CBC #### [facility] [address] [place] [address] Dr. Lashell Fuentes #0.01 10e3/ulNormal0.00-0.03The [facility] HospitalComment on above:Performed By: #### CBC #### [facility] [address] [place] [address] Dr. Lashell Fuentes %0.1 %Normal0.0-0.5The [facility] HospitalComment on above: Performed By: #### CBC #### [facility] [address] [place] [address] Dr. Lashell Peterson #2.3 103/ulNormal1.2-3.8The [facility] HospitalComment on above:Performed By: #### CBC #### [facility] [address] [place] [address] Dr. Lashell Bradfordhocytes/100 WBC (Bld)33.6 %Imlcly22.5-60.0The [facility] HospitalComment on above:Performed By: #### CBC #### [facility] [address] [place] [address] Dr. Lashell GrossmanUAL DIFF REQNONormalThe [facility] HospitalComment on above: Performed By: #### CBC #### [facility] [address] [address] [address] Lashell Kumar (RBC) [Entitic mass]31.2 dcTkorfc24.9-34.0The [facility] HospitalComment on above:Performed By: #### CBC #### [facility] [address] [place] [address] Dr. Lashell Kumar (RBC) [Mass/Vol]32.6 g/zEShzrzy88.9-35.2The [facility] HospitalComment on above:Performed By: #### CBC #### [facility] [address] [place] [address] Dr. Lashell Huston (RBC) [Entitic vol]95.7 fLCritically high80.0-94.0The [facility] HospitalComment on above:Performed By: #### CBC #### [facility] [address] [place] [address] Dr. Lashell Mckee #0.5 103/ulNormal0.3-0.8The [facility] HospitalComment on above:Performed By: #### CBC #### [facility] [address] [place] [address] Dr. Lashell Gonzalezocytes/100 WBC (Bld)7.5 %Normal1.7-12.0[facility] Comment on above:Performed By: #### CBC #### [facility] [address] [place] [address] Dr. Lashell James #4.0 103/ulNormal1.4-6.5The [facility] HospitalComment on above:Performed By: #### CBC #### [facility] [address] [place] [address] Dr. Lashell Crespoutrophils/100 WBC (Bld)57.1 %Feknrh88.0-75.0The [facility] HospitalComment on above:Performed By: #### CBC #### [facility] [address] [place] [address] Dr. Lashell Phippslet mean volume (Bld) [Entitic vol]9.7 fLNormal9.5-13.5The [facility] HospitalComment on above:Performed By: #### CBC #### [facility] [address] [place] [address] Dr. Lashell CaballeroPLT205 103/wbGxgkdh246-540Aso [facility] HospitalComment on above: Performed By: #### CBC #### [facility] [address] [place] [address] Dr. Lashell CaballeroRBC4.45 106/ulCritically low4.70-6.10The [facility] HospitalComment on above:Performed By: #### CBC #### [facility] [address] [place] [address] Dr. Lashell CaballeroWBC7.0 103/ulNormal4.0-11.0The [facility] HospitalComment on above: Performed By: #### CBC #### [facility] [address] [place] [address] Dr. Lashell CaballeroFOLATEon 08-38-5531XCWGVC68.90 ng/mLNormal8.60-58.90The [facility] HospitalComment on above:Performed By: #### FOL, IRON #### [facility] [address] [place] [address] Dr. Lashell CaballeroGLYCOHEMOGLOBIN A1Con 82-11-2443MWZ RECOMMENDATIONSEE BELOWNormal The [facility] HospitalCommunson healthcare [facility] hospital on above:Result Comment: ADA RECOMMENDED LIMIT 4.0 - 6.0 ADA THERAPEUTIC TARGET < 7.0 ACTION SUGGESTED > 7.0Performed By: #### A1C #### [facility] [address] [place] [address] Dr. Lashell CaballeroGlucose [Mass/Vol]140 mg/dLNormalThMercy Health St. Joseph Warren HospitalCommunson healthcare [facility] on above:Performed By: #### A1C #### [facility] [address] [place] [address] Dr. Lashell CaballeroHbA1c (Bld) [Mass fraction]6.5 %Critically high4.5-6.2The [facility] HospitalComment on above:Performed By: #### A1C #### [facility] [address] [address] [address] Lashell Noel 81-22-9556Kyyf [Mass/Vol]64.0 ug/dLCritically low 65.0-175.0The [facility] HospitalComment on above:Performed By: #### FOL, IRON #### [facility] [address] [place] [address] Dr. Lashell SwansonID PROFILEon 18-65-2959RZIZ-HDL RATIO NORMSEE BELOWNoSumma HealthComment on above:Result Comment: 3.3 - 4.4 LOW RISK 4.4 - 7.1 AVERAGE RISK 7.1 - 11.0 MODERATE RISK >11.0 HIGH RISKPerformed By: #### BMP, LIPID #### [facility] [address] [place] [address] Dr. Lashell Abernathyesterol [Mass/Vol]139 mg/dLNormal<=200[facility] Comment on above:Performed By: #### BMP, LIPID #### [facility] [address] [place] [address] Dr. Lashell Abernathyesterol in HDL [Mass/Vol]51 mg/vFLvcxhr71-25Oji [facility] HospitalComment on above:Performed By: #### BMP, LIPID #### [facility] [address] [place] [address] Dr. Lashell CaballeroCholesterol in LDL [Mass/Vol]68.2 mg/dLHolmes County Joel Pomerene Memorial HospitalComment on above:Performed By: #### BMP, LIPID #### [facility] [address] [place] [address] Dr. Lashell Ford.total/Cholesterol in HDL [Mass ratio]2.7 {ratio} NormalThe [facility] HospitalComment on above:Performed By: #### BMP, LIPID #### [facility] [address] [place] [address] Dr. Lashell Mcnally NORMAL> or = 60 mg/dl - LOW CARDIOVASCULAR RISK <40 mg/dl - HIGH CARDIOVASCULAR RISKHolmes County Joel Pomerene Memorial HospitalComment on above:Performed By: #### BMP, LIPID #### [facility] [address] [address] [address] Lashell Culver CALC NORMALSEE BELOWHolmes County Joel Pomerene Memorial HospitalComment on above:Result Comment: <100 mg/dl OPTIMAL 100 - 129 mg/dl NEAR OR ABOVE OPTIMAL 130 - 159 mg/dl BORDERLINE HIGH 160 - 189 mg/dl HIGH >190 mg/dl VERY HIGH Performed By: #### BMP, LIPID #### [facility] [address] [address] [address] Lashell CaballeroTriglyceride [Mass/Vol]99 mg/dLNormal<=150The [facility] Comment on above:Performed By: #### BMP, LIPID #### [facility] [address] [place] [address] Dr. Lashell CaballeroVLDL CALC19.8 mg/dLNoSumma HealthComment on above: Performed By: #### BMP, LIPID #### [facility] [address] [place] [address] Dr. Lashell CaballeroPROF CHEM 8 (BAS METB)on 86-38-2629Jelqx gap [Moles/Vol]12.3 mmol/LNormalCleveland Clinic Marymount HospitalComment on above:Performed By: #### BMP, LIPID #### [facility] [address] [place] [address] Dr. Lashell CaballeroCalcium [Mass/Vol]9.2 mg/dLNormal8.5-10.1[facility] Comment on above:Performed By: #### BMP, LIPID #### [facility] [address] [place] [address] Dr. Lashell CaballeroChloride [Moles/Vol]103 mmol/MZchvbi49-913Kqs [facility] Comment on above:Performed By: #### BMP, LIPID #### [facility] [address] [place] [address] Dr. Lashell CaballeroCO2 [Moles/Vol]29.9 mmol/UKjoenr71.0-32.0The [facility] Comment on above:Performed By: #### BMP, LIPID #### [facility] [address] [place] [address] Dr. Lashell CaballeroCreatinine [Mass/Vol]1.48 mg/dLCritically high0.70-1.30The [facility] HospitalComment on above:Performed By: #### BMP, LIPID #### [facility] [address] [address] [address] Lashell BowensGFR-AF BQYFRZAX56 mL/min/1.94d5Oqtoidtsyb low>=60The [facility] HospitalComment on above:Performed By: #### BMP, LIPID #### [facility] [address] [address] [address] Lashell BowensGFR-NON AF RDGMPQCY59 mL/min/1.90v4Xxpmyeqvyc low>=60The [facility] HospitalComment on above:Performed By: #### BMP, LIPID #### [facility] [address] [address] [address] Lashell CaballeroGlucose [Mass/Vol]101 mg/vSJxmlsh56-567Fgy [facility] Comment on above:Performed By: #### BMP, LIPID #### [facility] [address] [address] [address] Lashell CaballeroPotassium [Moles/Vol]4.2 mmol/LNormal3.5-5.1[facility] Comment on above:Performed By: #### BMP, LIPID #### [facility] [address] [address] [address] Lashell CaballeroSodium [Moles/Vol]141 mmol/UQiypzu892-307Qhs [facility] Comment on above:Performed By: #### BMP, LIPID #### [facility] [address] [address] [address] Lashell CaballeroUrea nitrogen [Mass/Vol]21.0 mg/dLCritically high7.0-18.0The [facility] HospitalComment on above:Performed By: #### BMP, LIPID #### [facility] [address] [address] [address] Lashell CaballeroUrea nitrogen/Creatinine [Mass ratio]14.2 mg/mgNormalThe [facility] HospitalComment on above:Performed By: #### BMP, LIPID #### [facility] [address] [place], [place] [address] Dr. Lashell CaballeroDermatopathologyon 12-11-8631ErvyxfujybigvbjmDzsr JUNIOR TORRES Pathologist: LEONOR LÓPEZ MD Date [...] M.D. Electronically Signed Out By LEONOR LÓPEZ MD/[facility] By the signature on this report, the individual or group listed as making the Final Interpretation/Diagnosis certifies that they have reviewed this case. Diagnostic interpretation performed at [facility] [address] [place] [address], [place] [address] Microscopic Description: Microscopic analysis shows a symmetric, [...] [facility] [place], [place] [address] [place], [place] [address]Comment on above: Performed By: #### D #### DermatopathologyNo Panel Informationon 95-31-5102QB-[facility] [place] 100 Work Phone: Tobacco Screening.on 71-70-7959Wfyu risk assessmenta) No falls within the last xxmjDS-Zjcuiak-Sjam MOB02 [place] Work Phone: Tobacco use status CPHSb) PbPU-Grzpfyd-Exla MOB02 [place] Work Phone: Tobacco Screening.on 27-37-6552Tukb risk assessmenta) No falls within the last yearM[facility] Work Phone: Tobacco use status CPHSb) NoMP-[facility] Work Phone: Tobacco Screening.LargeMills-[facility] Work Phone: Dermatopathologyon 27-85-9085XcmdptnvubmwfiwwRomw TORRES JUNIOR [facility] Pathologist: LEONOR LÓPEZ MD Date of Procedure: 07/07/2022 Date Received: 07/11/2022 Date Reported 07/14/2022 Submitting Physician: ОЛЬГА BROWN MD Location: [facility] External # FINAL DIAGNOSIS A. SKIN, [...] determined by the Department of Pathology at [facility]. The FDA does not require this [...] case. Diagnostic interpretation performed at Dermatopath Lab [address] [place], [place] [address], [facility] [address] Microscopic Description: A. Microscopic examination reveals a [...] superior, long stitch lateral. Melanoma. Excision. B: [place] lymph node #1 count 1055. Melanoma. Specimens Submitted As: A: SKIN, LEFT UPPER BACK B: NODE, LEFT AXILLARY SENTINEL LYMPH NODE #1 COUNT 1055 Gross Description: A: Received in formalin is a park ellipse of skin measuring [id number], oriented by the surgeon with a short [...] o'clock. B: Received in formalin is one cqg-dglaq-ervoni irregularly shaped piece of skin measuring 95v17l01qv. The specimen is inked and embedded in toto. 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 COMPARISON: None. ACCESSION NUMBER(S): [id number]; [id number] ORDERING CLINICIAN: ОЛЬГА BROWN TECHNIQUE: DIVISION OF [...] as stated. This study was interpreted at [facility], [place], [place]. Electronically signed by: HAILEE AGUDELO MDNormalSt. [facility] NM Lymph Glandon 05-50-0851YG Lymph node YltekSozuyoLO-Uzynoya-[facility] Work Phone: NM Tumor Loc Spec/CTon 09-20-1279WR Tumor Loc Spec/CT IsinihZB-Gykvnnr-Qnnfsav [facility] Work Phone: No Panel Informationon 90-80-2636SMMills-[facility] Work Phone: Order Reconciliationon 08-49-2478Ziezj Reconciliation Page 1 Discharge Reconciliation Document Reconciliation [...] mg is not required (more content not included)...Normal. [facility] CenterPatient Profile - Preop v3on 98-07-0042Nlxbvuo Profile - Preop v3This report has been cancelled. Normal. 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 COMPARISON: None. ACCESSION NUMBER(S): [id number]; [id number] ORDERING CLINICIAN: ОЛЬГА BROWN TECHNIQUE: DIVISION OF [...] as stated. This study was interpreted at [facility], [place], [place]. Electronically signed by: HAILEE AGUDELO MDNoMarti. [facility] CORONAVIRUS 2019 BY PCR, SCREEN ASYMPTOMATIC AMBULATORYon 12-35-3035PSMJ-CoV-2 (COVID-19) RNA MARAH+probe Ql (Unsp spec)Not detectedNormalNot DetectedHunterdon Medical CenterComment on above:Result Comment: . This [...] patient management decisions. Fact sheet for providers: https://www.fda.gov/media/700825/download Fact sheet for patients: https://www.fda.gov/media/530518/download This test has received FDA Emergency Use Authorization (EUA) and has been verified by [facility] ([facility]). This test is only authorized for the duration of time that circumstances exist to justify the authorization of the emergency use of in vitro diagnostic tests for the detection of SARS-CoV-2 virus and/or diagnosis of COVID-19 infection under section 564(b)(1) of the Act, 21 U.S.C. 360bbb-3(b)(1), unless the authorization is terminated or revoked sooner. [facility] is certified under CLIA-88 as qualified to perform high complexity testing. Testing is performed in the [facility] laboratories located at [address] [place] [address].Performed By: #### COVSA #### [facility] [address] [facility] [place], [place] [address]Covid 19 Resultson 59-94-1506GZXC-CoV-2 (COVID-19) RNA MARAH+probe Ql (Unsp spec)NEGATIVE COVID-19 [...] You may also be contacted by the [facility] to see if any of your [...] or Naproxen (Aleve) can also be used. Ayse-dhh-hztnxcp cough and cold medicines can be used according to the instructions on the package. Some mzbz-mzo-cqgkmnr medicines also contain acetaminophen. Make sure you [...] water are not available, use alcohol-based hand stereoptician. Avoid touching your eyes, nose, and mouth [...] gone for 24 tayla (more content not included)...NormalHunterdon Medical CenterBASIC METABOLIC PANELon 07-05-2022 Anion gap [Moles/Vol]10 mmol/WFlruiw30 - 20St. [facility] CenterComment on above:Performed By: #### BMP #### [address] [address]Bgvatmz [Mass/Vol]9.2 mg/dLNormal8.6 - 10.3St. [facility] Medical CenterComment on above:Performed By: #### BMP #### [address] [address]Vmuxnrvy [Moles/Vol]104 mmol/TUjpmvo00 - 107St. [facility] Medical CenterComment on above:Performed By: #### BMP #### [address] [address]Zbbcvkypsx [Mass/Vol]1.66 mg/dLHigh0.50 - 1.30St. [facility] CenterCommunson healthcare [facility] on above:Performed By: #### BMP #### [address] [address]CHH/1.73 sq M.predicted among non-blacks MDRD (S/P/Bld) [Vol rate/Area]42 mL/min/{1.73_m2}Abnormal>90St. [facility] Medical CenterComment on above: Result Comment: CALCULATIONS OF ESTIMATED GFR ARE PERFORMED USING THE 2020 CKD-EPI STUDY REFIT EQUATION WITHOUT THE RACE VARIABLE FOR THE IDMS-TRACEABLE CREATININE METHODS. https://jasn.asnjournals.org/content/early/ASN.2731871032Bvlevrmko By: #### BMP #### [address] [place], [place] [address]Kxkvxpv [Mass/Vol]90 mg/gSAkxcnu70 - 99[facility] Comment on above:Performed By: #### BMP #### [address] [address]LMT9 (Bld) [Moles/Vol]29 mmol/ZXencuq63 - 32St. [facility] Medical CenterComment on above:Performed By: #### BMP #### [address] [address]Mmqyitkjz [Moles/Vol]4.1 mmol/LNormal3.5 - 5.3St. [facility] Medical CenterComment on above:Performed By: #### BMP #### [address] [address]Uxczye [Moles/Vol]139 mmol/ZVxzcvw356 - 145St. [facility] Medical CenterComment on above:Performed By: #### BMP #### [address] [address]Cwwd nitrogen [Mass/Vol]25 mg/dLHigh6 - 23St. [facility] Medical CenterComment on above:Performed By: #### BMP #### [address] [address]WGKJXJIAGRU 2019 BY PCR, SCREEN ASYMPTOMATIC AMBULATORYon 53-92-8889Rds Specimen SourceNasal, NasopharyngealNormalUH [facility] University Hospital At RahwayComment on above:Performed By: #### COVSA #### [facility] [address] [place], [place] [address]Aotcotjlvipvrohht 12 Leadon 27-03-5635Jfonrvzjqgytdjjvm 12 LeadVentricular Rate 46 Atrial Rate 46 P-R Interval 212 QRS Duration 94 Q-T Interval 440 QTC Calculation(Bazett) 385 P Madrid 53 R Madrid 17 T Madrid 116 QRS Count 7 Q Onset 223 P Onset 117 P Offset 172 T Offset 443 QTC Fredericia 402 Diagnosis Class Abnormal Diagnosis Marked sinus bradycardia with 1st degree AV block Nonspecific T wave abnormality Abnormal ECG No previous ECGs available Confirmed by Cleveland Sheth ([id number]) on 07/12/2022 10:02:02 [facility] and Chemistry - challengeon 39-47-7247Bpzms gap [Moles/Vol]10 mmol/L10 - 89GW-Dccdvac-BugqhgyAscension [facility] Hospital Work Phone: [phone] [Mass/Vol]9.2 mg/dL8.6 - 10.3 UM-Dbjrzxh-PcjjhoxAscension Providence Hospital Work Phone: [phone] [Moles/Vol]104 mmol/L98 - 107 JQ-Ofshtaa-LhtpldmAscension Providence Hospital Work Phone: [phone] [Moles/Vol]29 mmol/L21 - 00OF-Fnpunua-CezfvmvAscension Providence Hospital Work Phone: [phone] [Mass/Vol]1.66 mg/dLabove high thresholdSee UwsgbEX-Rvoqnzz-EdhmudnSelect Specialty Hospital Work Phone: Comment on above:Reference Range: 0.50 - 1.30Glucose [Mass/Vol]90 mg/dL74 - 71QQ-Bwmbxtp-RcsvblkAscension Providence Hospital Work Phone: [phone] [Moles/Vol]4.1 mmol/L3.5 - 5.3 PJ-Bewphuw-ImbafezAscension Providence Hospital Work Phone: [phone] [Moles/Vol]139 mmol/L136 - 145 ST-Phyfbnp-JnkgnvqAscension Providence Hospital Work Phone: Urea nitrogen [Mass/Vol]25 mg/dLabove high threshold6 - 36DO-Gaaektk-LmmskcjAscension Providence Hospital Work Phone: No Panel Informationon 94-16-3668Dqt detectedNormalSee TetwlYQ-Koodwpf-WinjslgSelect Specialty Hospital Work Phone: Comment on above:SOURCE: Nasal, [...] make patient management decisions.Fact sheet for providers: https://www.fda.gov/media/979116/downloadFact sheet for patients: https://www.fda.gov/media/230081/downloadThis test has received FDA Emergency Use Authorization (EUA) and has been verified by [facility] ([facility]). This test is only authorized for the duration of time that circumstances exist to justify the authorization of the emergency use of in vitro diagnostic tests for the detection of SARS-CoV-2 virus and/or diagnosis of COVID-19 infection under section 564(b)(1) of the Act, 21 U.S.C. 360bbb- 3(b)(1), unless the authorization is terminated or revoked sooner. [facility] is certified under CLIA-88 as qualified to perform high complexity testing. Testing is performed in the [facility] laboratories located at [address] [place] [address].42 {mL/min/1.73m2}Abnormal>90 ZQ-Qcfiern-OwueqgsSurgeons Choice Medical Center Work Phone: comment on above:CALCULATIONS OF ESTIMATED GFR ARE PERFORMED USING THE 2020 CKD-EPI STUDY REFIT EQUATION WITHOUT THERACE VARIABLE FOR THE IDMS-TRACEABLE CREATININE METHODS.https://jasn.asnjournals.org/content/early//ASN.8929622004 https://FBSYQQPWOYFQX32:8080/musescripts/museweb.dll?RetrieveTestByDateTime?Celeste yrxJU=[id number]& Date=05-07-2022&Time=10%3a10%3a53%3a00&TestType=ECG&Site=12&OutputType=PDF&Ext=P DFPeaceHealth [facility] 250 DO Work Phone: Marked sinus bradycardia with 1st degree AV blockBlue Ridge Regional Hospital [facility] 250 DO Work Phone: [phone]-Wixgm [place] [facility] 250 DO Work Phone: [phone] [address] [place] [address] [facility] 250 DO Work Phone: [phone] [address] [place] [address] [facility] 250 DO Work Phone: [phone] [address] [place] [address] [facility] 250 DO Work Phone: [phone] [address] [place] [address] [facility] 250 DO Work Phone: [phone] [address] [place] [address] [facility] 250 DO Work Phone: [phone] [place] [address] [facility] 250 DO Work Phone: [phone] [address] [place] [address] [facility] 250 DO Work Phone: [phone] [address] [place] [address] [facility] 250 DO Work Phone: [phone] [address] [place] [address] [facility] 250 DO Work Phone: [phone] [address] [place] [address] [facility] 250 DO Work Phone: [phone] [address] [place] [address] [facility] 250 DO Work Phone: [phone] [address] [place] [address] [facility] 250 DO Work Phone: [phone] [address] [place] [address] [facility] 250 DO Work Phone: [phone] [address] [place] [address] [facility] 250 DO Work Phone: Tobacco Screening.on 69-89-1112Gsoh risk assessmenta) No falls within the last tmhtLI-Obxikbb-Mhlmjso Cancer Center Work Phone: Tobacco use status CPHSb) KzNW-Fnpmtyt-EdhcoliSurgeons Choice Medical Center Work Phone: dermatopathologyon 92-93-7426EovqqffvkmctotuzAfvy: JUNIOR TORRES Pathologist: LEONOR LÓPEZ MD Date of Procedure: 06/16/2022 Date Received: 06/16/2022 Date Reported 06/23/2022 Submitting Physician: ОЛЬГА BROWN MD Location: ADE Copy To/Referring/Attending: JULITA OWEN MD FINAL DIAGNOSIS 1 SLIDE, [facility] #[id number] (BX: 06/06/2022) SKIN, LEFT UPPER BACK, SHAVE [...] M.D. CANCER SUMMARY REPORT A. 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 is one slide labeled [id number] (BX: 06/06/2022) along with the corresponding pathology report. One H+E slide for block 2 received 06/23/22 upon request. Slide/Block Description 1 SLIDE, [id number]. Keep Slides: N Slides Returned: N Personal Consult: [facility] CenterComment on above:Performed By: #### D #### DermatopathologyNo Panel Informationon 27-69-6527TZ-[facility] Work Phone: Tobacco Screening.on 42-89-8812Kwwns depression screening assessmentNoPeaceHealth Rypos 250 DO Work Phone: Fall risk assessmenta) No falls within the last year [facility] 250 DO Work Phone: Tobacco use status CPHSb) NoMMulticare Health [facility] Inc[facility] 250 DO Work Phone: Tobacco Screening.on 14-99-7303Uqux risk assessmenta) No falls within the last yearPeaceHealth Rypos 250 DO Work Phone: Heart RateRegularPeaceHealth Rypos 250 DO Work Phone: Tobacco use status CPHSb) [facility] 250 DO Work Phone: Tobacco Screening.on 16-50-8614Wblj risk assessmenta) No falls within the last yearPeaceHealth HeartBill 250 DO Work Phone: Tobacco use status CPHSb) [facility] 250 DO Work Phone: NOH MUGA SCAN INJECTIONon 02-26-8764BTG MUGA SCAN INJECTIONMRN: [id number] Patient Name: JUNIOR TORRES STUDY: MUGA SCAN INJECTION; MUGA (GATED CARDIAC BLOOD POOL); 06/11/2020 3:13 pm; 06/11/2020 3:17 pm Performing facility: [facility], [address] [place] [address] Patient name: JUNIOR TORRES Gender: M Age: 75 y/o Height: 70 ; Weight: 192lbs; BMI: INDICATION: MUGA. Ischemic Cardiomyopathy HISTORY: HTN, CAD, FAMILY HX CAD, CABG 1994, CATH 2018 COMPARISON: None. ACCESSION NUMBER(S): [id number]; [id number] ORDERING CLINICIAN: BUD BEATTY TECHNIQUE: The patient's [...] for comparison Electronically signed by: JIMMIE ARELLANO MDUniversity of Pennsylvania Health System Vital Signs Date TimeVital SignValuePerforming GwrylgdpjBsyqnbyc28-83-0615 14:30-0500 Diastolic blood huzexcqf00 mm[Hg]Hayden Mosquedaerer DO Work Phone: [facility]11-04-2025 14:30-0500 Systolic blood iulgqvnr704 mm[Hg]Hayden Oberer DO Work Phone: 1(452)[address] [place], [place] 3316811-04-2025 14:20-0500 Body bllfue353.34 cmKarl Oberer DO Work Phone: 1(922)[address] [place], [place] 3316811-04-2025 14:20-0500 Body mass index (BMI) [Ratio]24.1 kg/m2Karl Oberer DO Work Phone: 1(507)[address] [place], [place] 3316811-04-2025 14:20-0500 Body akqrnqdzsws67.7 [degF]Hayden Oberer DO Work Phone: 1(454)[address] [place], [place] 3316811-04-2025 14:20-0500 Body auokjx55.58 kgKarl Oberer DO Work Phone: 1(537)[address] [place], [place] 3316811-04-2025 14:20-0500 Heart rate52 /minKarl Oberer DO Work Phone: 1(383)[address] [place], [place] 3316811-04-2025 14:20-0500 Respiratory rate16 /minKarl Oberer DO Work Phone: 1(624)[address] [place], [place] 3316811-04-2025 14:20-0500 SaO2% (BldA) [Mass fraction]100 %Hayden Oberer DO Work Phone: 1(713)[address] [place], [place] 3316808-25-2025 15:52-0400 Diastolic blood mqbkzqyy59 mm[Hg]Hayden Oberer DO Work Phone: 1(769)[address] [place], [place] 3316808-25-2025 15:52-0400 Systolic blood zculdmmf044 mm[Hg]Hayden Oberer DO Work Phone: 1(215)[address] [place], [place] 3316808-25-2025 15:50-0400 Body bswzus566.8 cmKarl Oberer DO Work Phone: 1(066)[address] [place], [place] 3316808-25-2025 15:50-0400 Body mass index (BMI) [Ratio]24.8 kg/m2Karl Oberer DO Work Phone: 1(419)[address] [place], [place] 3316808-25-2025 15:50-0400 Body cjruwxkghcr02.7 [degF]Hayden Oberer DO Work Phone: 1(158)[address] [place], [place] 3316808-25-2025 15:50-0400 Body lexcsb21.49 kgKarl Oberer DO Work Phone: 1(322)[address] [place], [place] 3316808-25-2025 15:50-0400 Heart rate64 /minKarl Oberer DO Work Phone: 1(654)[address] [place], [place] 3316808-25-2025 15:50-0400 Respiratory rate16 /minKarl Oberer DO Work Phone: 1(448)[address] [place], [place] 3316808-25-2025 15:50-0400 SaO2% (BldA) [Mass fraction]98 %Hayden Oberer DO Work Phone: 1(562)[address] [place], [place] 3316808-05-2025 11:32-0400 Diastolic blood tffsdyoe04 mm[Hg]Hayden Oberer DO Work Phone: 1(571)[address] [place], [place] 3316808-05-2025 11:32-0400 Systolic blood wteefjrd626 mm[Hg]Hayden Oberer DO Work Phone: 1(226)[address] [place], [place] 3316808-05-2025 11:30-0400 Body mrmnly849.8 cmKarl Oberer DO Work Phone: 1(061)[address] [place], [place] 3316808-05-2025 11:30-0400 Body mass index (BMI) [Ratio]24.7 kg/m2Karl Oberer DO Work Phone: 1(083)[address] [place], [place] 3316808-05-2025 11:30-0400 Body dappfvoslrh55.2 [degF]Hayden Oberer DO Work Phone: 1(314)[address] [place], [place] 3316808-05-2025 11:30-0400 Body gywjpa30.24 kgKarl Oberer DO Work Phone: 1(183)[address] [place], [place] 3316808-05-2025 11:30-0400 Heart rate60 /minKarl Oberer DO Work Phone: 1(691)854-[address] [place], [place] 1905608-05-2025 11:30-0400 Respiratory rate16 /minKarl Oberer DO Work Phone: 1(813)[address]08-05-2025 11:30-0400 SaO2% (BldA) [Mass fraction]99 %Hayden Oberer DO Work Phone: 1(807)[address]07-10-2025 10:34-0400 Body iyyyxg385.8 cmWillfred Rogerio DO Work Phone: 1(939)393-[address] [place], [place] 6758107-10-2025 10:34-0400 Body mass index (BMI) [Ratio]24.82 kg/q4Xvfttqz Rogerio DO Work Phone: 2(922)342-[address] [place], [place] 6758107-10-2025 10:34-0400 Body bgnpub34.47 kgWillfred Rogerio DO Work Phone: 1(084)416-[address] [place], [place] 6758107-10-2025 10:34-0400 Diastolic blood gbwulwsd32 mm[Hg]Bud Beatty DO Work Phone: 4(528)887-[address] [place], [place] 6758107-10-2025 10:34-0400 Heart rate68 /minWillfred Camilodon DO Work Phone: [address] [place], [place] 3302907-10-2025 10:34-0400 Systolic blood wxyrwyeo069 mm[Hg]Bud Beatty DO Work Phone: 1(364)757-[address] [place], [place] 6758107-03-2025 14:37-0400 Body ygyyok484.8 cmKarl Oberer DO Work Phone: [phone]07-03-2025 14:37-0400 Body mass index (BMI) [Ratio]24.7 kg/m2Karl Oberer DO Work Phone: 1(836)[address]07-03-2025 14:37-0400 Body alkdqs06.01 kgKarl Oberer DO Work Phone: 1(793)704-[address] [place], [place] 1905607-03-2025 14:37-0400 Diastolic blood mm[Hg]Hayden Oberer DO Work Phone: 1(126)804-[address] [place], [place] 1905607-03-2025 14:37-0400 Heart rate71 /minKarl Oberer DO Work Phone: 1(074)529-[address] [place], [place] 1905607-03-2025 14:37-0400 Systolic blood yhlrwfkj446 mm[Hg]Hayden Oberer DO Work Phone: 1(194)[address]05-06-2025 08:57-0400 Body aiptgq129.8 cmRichmeaghan Papo Work Phone: 4(655)[address] [place], [place] 6506305-06-2025 08:57-0400 Body mass index (BMI) [Ratio]24.7 kg/w5NwbrqjkОльга Tejedat Work Phone: 9(476)[address] [place], [place] 6506305-06-2025 08:57-0400 Body pjlrqkxqjeo63.3 [degF]Ольга Barros Work Phone: 1(392)[address] [place], [place] 6506305-06-2025 08:57-0400 Body bizunn87.24 kgRichmeaghan Tejedat Work Phone: 9(560)[address]05-06-2025 08:57-0400 Diastolic blood lmozchsv89 mm[Hg]Ольга Tejedat Work Phone: 0(599)[address]05-06-2025 08:57-0400 Heart rate70 /minОльга Papo Work Phone: 5(840)[address] [place], [place] 6506305-06-2025 08:57-0400 Respiratory rate16 /minОльга De La Oght Work Phone: 7(169)[address] [place], [place] 6506305-06-2025 08:57-0400 SaO2% (BldA) [Mass fraction]97 %Ольга Tejedat Work Phone: 6(236)[address] [place], [place] 6506305-06-2025 08:57-0400 Systolic blood bmssoloe250 mm[Hg]Ольга Tejedat Work Phone: 1(419)[address] [place], [place] 6506304-02-2025 14:20-0400 Body htvbde710.8 cmRichmeaghan Barros Work Phone: 1(878)[address] [place], [place] 6506304-02-2025 14:20-0400 Body mass index (BMI) [Ratio]25.1 kg/h7MgzmgetОльга Barros Work Phone: 1(023)[address] [place], [place] 6506304-02-2025 14:20-0400 Body .37 kgОльга Barros Work Phone: 1(325)[address] [place], [place] 6506311-12-2024 14:01-0500 Body cirwep997.8 cmKarl Oberer DO Work Phone: 1(637)[address] [place], [place] 3316811-12-2024 14:01-0500 Body mass index (BMI) [Ratio]24.3 kg/m2Karl Oberer DO Work Phone: 1(257)[address] [place], [place] 3316811-12-2024 14:01-0500 Body lvqnidnuiha45.3 [degF]Hayden Oberer DO Work Phone: 1(697)[address] [place], [place] 3316811-12-2024 14:01-0500 Body apytlo93.85 kgKarl Oberer DO Work Phone: 1(945)[address] [place], [place] 3316811-12-2024 14:01-0500 Diastolic blood anyjxuep85 mm[Hg]Hayden Oberer DO Work Phone: 1(630)[address] [place], [place] 3316811-12-2024 14:01-0500 Heart rate64 /minKarl Oberer DO Work Phone: 1(776)[address] [place], [place] 3316811-12-2024 14:01-0500 Respiratory rate16 /minKarl Oberer DO Work Phone: 1(003)[address] [place], [place] 3316811-12-2024 14:01-0500 SaO2% (BldA) [Mass fraction]95 %Hayden Oberer DO Work Phone: 1(028)[address] [place], [place] 3316811-12-2024 14:01-0500 Systolic blood zlobojzl211 mm[Hg]Hayden Oberer DO Work Phone: 1(221)[address] [place], [place] 3316810-14-2024 13:30-0400 Diastolic blood aabpijmb21 mm[Hg]DO Hayden Oberer Work Phone: 1(882)[address] [place], [place] 3316810-14-2024 13:30-0400 Heart rate67 /minDO Hayden Oberer Work Phone: 1(810)[address] [place], [place] 3316810-14-2024 13:30-0400 Respiratory rate16 /minDO Hayden Oberer Work Phone: 1(226)[address] [place], [place] 3316810-14-2024 13:30-0400 SaO2% (BldA) [Mass fraction]98 %DO Hayden Oberer Work Phone: 1(070)[address] [place], [place] 3316810-14-2024 13:30-0400 Systolic blood zoqtxqwr714 mm[Hg]DO Hayden Oberer Work Phone: 1(351)[address] [place], [place] 3316810-14-2024 12:01-0400 Body mqmkee670.8 cmDO Hayden Oberer Work Phone: 1(642)[address] [place], [place] 3316810-14-2024 12:01-0400 Body nyvodu83.11 kgDO Hayden Oberer Work Phone: 1(460)[address] [place], [place] 3316809-18-2024 13:13-0400 Body xqezoe671.34 cmRichard Papo Work Phone: 1(614)[address] [place], [place] 6506309-18-2024 13:13-0400 Body mass index (BMI) [Ratio]34.1 kg/n7Kzwvnop Papo Work Phone: 1(143)[address] [place], [place] 6506309-18-2024 13:13-0400 Body kgRichard Papo Work Phone: 1(243)[address] [place], [place] 6506309-03-2024 11:08-0400 Diastolic blood abqbhezh53 mm[Hg]Bud Beatty DO Work Phone: [facility]09-03-2024 11:08-0400 Heart rate72 /minBud Camilodon DO Work Phone: 1(631)[address] [place], [place] 6758109-03-2024 11:08-0400 Systolic blood njggyqno499 mm[Hg]Bud Beatty DO Work Phone: 1(114)[address]09-03-2024 11:05-0400 Body asjmml457.8 cmWianahi Rogerio DO Work Phone: 1(728)[address] [place], [place] 6758109-03-2024 11:05-0400 Body mass index (BMI) [Ratio]24.39 kg/n3Idcxovv Rogerio DO Work Phone: 1(482)[address]09-03-2024 11:05-0400 Body .11 kgWianahi Camilodon DO Work Phone: 1(524)[address]05-21-2024 13:40-0400 Body avtwkv922.8 cmWianahi Camilodon DO Work Phone: 1(977)[address] [place], [place] 6758105-21-2024 13:40-0400 Body mass index (BMI) [Ratio]25.4 kg/e6ZqoedcoBud Camilodon DO Work Phone: [phone] [place], [place] 6758105-21-2024 13:40-0400 Body uvqwpa65.29 kgWianahi Camilodon DO Work Phone: [address] [place], [place] 3302905-21-2024 13:40-0400 Diastolic blood xgfirxqc09 mm[Hg]Bud Camilodon DO Work Phone: [phone] [place], [place] 6758105-21-2024 13:40-0400 Heart rate72 /minBud Camilodon DO Work Phone: 1(629)[address] [place], [place] 6758105-21-2024 13:40-0400 Systolic blood vmimbzre189 mm[Hg]Bud Beatty DO Work Phone: 1(473)591-[address] [place], [place] 6758105-03-2024 13:53-0400 Diastolic blood uveytpyx05 mm[Hg]Ольга Barros Work Phone: 1(419)[address]05-03-2024 13:53-0400 Systolic blood cwafxmaq575 mm[Hg]Ольга Barros Work Phone: 1(199)[address] [place], [place] 6506305-03-2024 13:50-0400 Body aakxuz202.34 cmRxiomara Barros Work Phone: 1(580)[address] [place], [place] 6506305-03-2024 13:50-0400 Body mass index (BMI) [Ratio]24.5 kg/v8Ipzgkaumeaghan Barros Work Phone: 1(790)[address] [place], [place] 6506305-03-2024 13:50-0400 Body ocbibadyksb51 [degF]Ольга Barros Work Phone: 1(599)[address] [place], [place] 6506305-03-2024 13:50-0400 Body .97 kgRichmeaghan Barros Work Phone: 1(910)[address] [place], [place] 6506305-03-2024 13:50-0400 Heart rate47 /minОльга Barros Work Phone: 1(163)[address] [place], [place] 6506305-03-2024 13:50-0400 Respiratory rate16 /minОльга Barros Work Phone: 1(996)[address] [place], [place] 6506305-03-2024 13:50-0400 SaO2% (BldA) [Mass fraction]100 %Ольга Barros Work Phone: 1(947)[address] [place], [place] 6506304-02-2024 14:12-0400 Diastolic blood mm[Hg]Ольга Barros Work Phone: 1(900)[address] [place], [place] 6506304-02-2024 14:12-0400 Respiratory rate16 /minОльга Barros Work Phone: 1(021)[address] [place], [place] 6506304-02-2024 14:12-0400 Systolic blood hzvwsvco951 mm[Hg]Ольга Barros Work Phone: 1(363)[address] [place], [place] 6506304-02-2024 14:07-0400 Body wxensi672.34 cmRichmeaghan Barros Work Phone: 1(952)[address] [place], [place] 6506304-02-2024 14:07-0400 Body mass index (BMI) [Ratio]24.5 kg/a4BirejwjОльга Barros Work Phone: 1(523)[address] [place], [place] 6506304-02-2024 14:07-0400 Body btukjrrxfxv94.3 [degF]Ольга Barros Work Phone: 1(632)[address]04-02-2024 14:07-0400 Body gfoque57.63 kgОльга Barros Work Phone: 1(000)[address]04-02-2024 14:07-0400 Heart rate42 /minОльга Barros Work Phone: 1(583)[address] [place], [place] 6506304-02-2024 14:07-0400 SaO2% (BldA) [Mass fraction]98 %Ольга Barros Work Phone: 1(878)[address] [place], [place] 6506302-07-2024 14:41-0500 Body umuotj283.8 cmWikayleyfred Beatty DO Work Phone: 1(061)737-74[facility]02-07-2024 14:41-0500 Body mass index (BMI) [Ratio]25.54 kg/o9DvewmleBud Beatty DO Work Phone: 2(414)515-89[facility]02-07-2024 14:41-0500 Body .74 kgWianahi Beatty DO Work Phone: 2(059)847-[address] [place], [place] 6758102-07-2024 14:41-0500 Diastolic blood mm[Hg]Bud Beatty DO Work Phone: 0(479)782-[address] [place], [place] 6758102-07-2024 14:41-0500 Heart rate50 /minBud Beatty DO Work Phone: 5(471)327-[address] [place], [place] 6758102-07-2024 14:41-0500 Systolic blood mm[Hg]Bud Beatty DO Work Phone: 0(738)803-[address] [place], [place] 6758105-02-2023 15:00-0400 Body mass index (BMI) [Ratio]25.59 kg/m2Karl Oberer Other [employer] Other 05-02-2023 15:00-0400Body eowocienhfb51.7 [degF]Hayden Oberer Other [employer] Other 05-02-2023 15:00-0400Body ibhhib80.24 kgKarl Oberer Other [employer] Other [id number] 15:00-0400Diastolic blood ezrfknfo43 mm[Hg] Hayden Oberer Other [employer] Other 05-02-2023 15:00-0400Respiratory rate16 /minKarl Oberer Other [employer] Other 05-02-2023 15:00-3648NsH1% (BldA) [Mass fraction]97 % Hayden Oberer Other [employer] Other 05-02-2023 15:00-0400Systolic blood mm[Hg] Hayden Oberer Other [employer] Other 05-02-2023 11:15-0400Body osnpbh122.34 cmChristopher Janes Other [employer] Other 05-02-2023 11:15-0400Body mass index (BMI) [Ratio] 25.38 kg/y0Cpiqcigfzst Janes Other [employer] Other 05-02-2023 11:15-0400Body yuktgrrfqpb96.7 [degF] Christopher Janes Other [employer] Other 05-02-2023 11:15-0400Body kywflh91.56 kgChristopher Janes Other [employer] Other 05-02-2023 11:15-0400Diastolic blood ibsvjvmu95 mm[Hg] Christleeanneer Janes Other [employer] Other 05-02-2023 11:15-0400Respiratory rate20 /min Christleeanneer Janes Other [employer] Other 05-02-2023 11:15-9002HsG8% (BldA) [Mass fraction]98 % Christleeanneer Janes Other [employer] Other 05-02-2023 11:15-0400Systolic blood ivirpjxb108 mm[Hg] Christleeanneer Janes Other [employer] Other 03-08-2023 14:15-0500Body dqtdag729.34 cmCameron Ditty Other [employer] Other 03-08-2023 14:15-0500Body mass index (BMI) [Ratio] 25.66 kg/c5Qxsutmf Ditty Other [employer] Other 03-08-2023 14:15-0500Body iecull74.46 kgCameron Ditty Other [employer] Other 03-08-2023 14:15-0500Diastolic blood davmlbop69 mm[Hg] Crescencio Ditty Other [employer] Other 03-08-2023 14:15-0500Respiratory rate18 /minCambrad Mendez Other [employer] Other 03-08-2023 14:15-0500Systolic blood euctptyx454 mm[Hg] Crescencio Mendez Other [employer] Other 02-01-2023 11:33-0500Body .8 cmKarl L Oberer Work Phone: [id number]-Tsnoc [place] [facility] 250 DO Work Phone: 1(140) 506-463702-01-2023 11:33-0500Body mass index (BMI) [Ratio] 26.26 kg/m2Karl L Oberer Work Phone: mp447-9847QY-Fflqo [place] [employer] 250 DO Work Phone: 1(795) 475-879702-01-2023 11:33-0500Body surface area Derived from formula2.01 m2Karl L Oberer Work Phone: mp568-0509UR-Bfsnr [place] [facility] 250 DO Work Phone: 1(793) 985-198202-01-2023 11:33-0500Body kfpcqu49.01 kgKarl L Oberer Work Phone: mp516-3909BH-Qbtkc [place] [employer] 250 DO Work Phone: 1(493) 965-770802-01-2023 11:33-0500Diastolic blood tavzyjgs12 mm[Hg] Hayden L Oberer Work Phone: mp894-5492WL-Pcevp [place] HeartAmel[facility] IncorporatedRay[facility] 250 DO Work Phone: 1(595) 733-591102-01-2023 11:33-0500Heart rate54 /minKarl L Oberer Work Phone: mp392-6887JR-Qcsgf [place] [facility] 250 DO Work Phone: 1(656) 106-761402-01-2023 11:33-0500Systolic blood nmlivllj763 mm[Hg] Hayden L Oberer Work Phone: mp599-0921ET-Prblc [place] [facility] 250 DO Work Phone: 1(847) 570-363611-01-2022 14:15-0400Body oclvhe231.34 cmKarl Oberer Other [facility] [employer] Other 11-01-2022 14:15-0400Body mass index (BMI) [Ratio] 25.84 kg/m2Karl Oberer Other [employer] Other 11-01-2022 14:15-0400Body mdhdfkoycja46.2 [degF]Hayden Oberer Other [employer] Other 11-01-2022 14:15-0400Body .05 kgKarl Oberer Other [employer] Other 11-01-2022 14:15-0400Diastolic blood apeutsem89 mm[Hg] Hayden Oberer Other [employer] Other 11-01-2022 14:15-0400Respiratory rate16 /minKarl Oberer Other [employer] Other 11-01-2022 14:15-5241VuT5% (BldA) [Mass fraction]98 % Hayden Oberer Other [employer] Other 11-01-2022 14:15-0400Systolic blood pxwhoeal542 mm[Hg] Hayden Oberer Other [employer] Other 10-25-2022 12:38-0400Body ajiown541.8 cmKarl L Oberer Work Phone: IT-Poe[address] [place] [address] Work Phone: 1(159)[phone] 12:38-0400Body mass index (BMI) [Ratio]26.4 kg/m2Karl L Oberer Work Phone: NS-Azd[address] [place] [address] Work Phone: 1(197)[phone]9-7226 12:38-0400Body surface area Derived from formula2.01 m2Karl L Oberer Work Phone: KV-Pqw[address] [place] [address] Work Phone: 1(304) 542-907110-25-2022 12:38-0400Body ulncfmowjex83.7 [degF]Hayden L Oberer Work Phone: NR-Bok[address] [place] [address] Work Phone: 1(832)[phone] 12:38-0400Body .46 kgKarl L Oberer Work Phone: LL-Ptm[address] [place] [address] Work Phone: 1(727) 473-874010-25-2022 12:38-0400Diastolic blood lvwntgyp93 mm[Hg] Hayden L Oberer Work Phone: KX-Szx[address] [place] [address] Work Phone: 1(676)[phone]0-2109 12:38-0400Heart rate57 /minKarl L Oberer Work Phone: BN-Gkk[address] [place] [address] Work Phone: 1(664)[phone] 12:38-0400Respiratory rate18 /minKarl L Oberer Work Phone: FT-Xem[address] [place] [address] Work Phone: 1(385)[phone]9-2073 12:38-5823VzF4% (BldA) [Mass fraction]96 % Hayden L Oberer Work Phone: WC-Dsr[address] [place] [address] Work Phone: 1(675) 595-877610-25-2022 12:38-0400Systolic blood knadnuqw317 mm[Hg] Hayden L Oberer Work Phone: 1(749) [phone]-[facility] Work Phone: 1(903) 327-220110-04-2022 11:53-0400Body .8 cmKarl L Oberer Work Phone: 1(125) 339-6201210-9684SB-Munagqy-[place] [facility] [place] Work Phone: 1(658) 623-954410-04-2022 11:53-0400Body mass index (BMI) [Ratio] 26.11 kg/m2Karl L Oberer Work Phone: 1(518) [phone]-Cxkedyb-[place] [facility] [place] Work Phone: 1(154) 252-499110-04-2022 11:53-0400Body surface area Derived from formula2.01 m2Karl L Oberer Work Phone: 1(857) [phone]-[employer]-[place] [facility] [place] Work Phone: 1(558) 226-343310-04-2022 11:53-0400Body uclhvxtbqze62.88 [degF]Hayden L Oberer Work Phone: 1(233) 307-2007288-9087ZO-Ujfxtqu-[place] [facility] [place] Work Phone: 1(747) 620-477310-04-2022 11:53-0400Body uimtmk78.56 kgKarl L Oberer Work Phone: 1(372) 497-8319543-7854II-Dfcpbpv-[place] [facility] [place] Work Phone: 1(380) 816-824310-04-2022 11:53-0400Diastolic blood atrbzpwh65 mm[Hg] Hayden L Oberer Work Phone: CO-Iaxyuqg-[place] [facility] [place] Work Phone: 1(233) 410-288810-04-2022 11:53-0400Heart rate56 /minKarl L Oberer Work Phone: 1(140) [phone]-Lrxfvtx-[place] [facility] [place] Work Phone: 1(516) 355-922510-04-2022 11:53-0400Respiratory rate18 /minKarl L Oberer Work Phone: 1(743) [phone]-Szwnywi-[place] [facility] [place] Work Phone: 1(463) 991-555010-04-2022 11:53-0909CbQ5% (BldA) [Mass fraction]95 % Hayden L Oberer Work Phone: 1(288) [phone]-Aeocbmc-[place] [facility] [place] Work Phone: 1(885) 545-575610-04-2022 11:53-0400Systolic blood mm[Hg] Hayden L Oberer Work Phone: 1(386) 850-9963137-2452KV-Ttzkzfp-[place] [facility] [place] Work Phone: 1(759) 209-955709-06-2022 12:47-0400Body oeuhxk971.8 cmKarl L Oberer Work Phone: [facility] Work Phone: 1(280) 242-620409-06-2022 12:47-0400Body mass index (BMI) [Ratio] 25.83 kg/m2Karl L Oberer Work Phone: EI[facility]np[facility] Work Phone: 1(999) 380-945909-06-2022 12:47-0400Body surface area Derived from formula2 m2Juan Franciscol L Oberer Work Phone: 1(573)[phone][facility]vlM[facility] Work Phone: 1(308) 159-253009-06-2022 12:47-0400Body wsueaprezxf90.34 [degF]Hayden L Oberer Work Phone: 1(090)439-264-7662UX-Elc[address] [place] [address] Work Phone: 1(726) 258-827609-06-2022 12:47-0400Body spjeoy06.65 kgKarl L Oberer Work Phone: 1(367)[phone]-[facility]jM[facility] Work Phone: 1(632) 330-194409-06-2022 12:47-0400Diastolic blood dmhrumpy52 mm[Hg] Hayden L Oberer Work Phone: 1(829)[phone]-[facility]lsM[facility] Work Phone: 1(884) [phone] 12:47-0400Heart rate50 /minKarl L Oberer Work Phone: 1(839)[phone]-[facility]jbM[facility] Work Phone: 1(808) 771-568109-06-2022 12:47-0400Respiratory rate16 /minKarl L Oberer Work Phone: 1(292)[phone]-FdfM[facility] Work Phone: 1(516) 650-426209-06-2022 12:47-5703ZmU9% (BldA) [Mass fraction]96 % Hayden L Oberer Work Phone: 1(633)[phone]-WamM[facility] Work Phone: 1(725) 270-780509-06-2022 12:47-0400Systolic blood mm[Hg] Hayden L Oberer Work Phone: FG[facility]IdeM[facility] Work Phone: 1(765) 294-189208-23-2022 12:01-0400Body updkrn158.8 cmKarl L Oberer Work Phone: WU-Wgjznal[address] [place] [address] Work Phone: [phone] 12:01-0400Body mass index (BMI) [Ratio] 26.11 kg/m2Karl L Oberer Work Phone: UU-Htshban[address] [place] [address] Work Phone: [phone] 12:01-0400Body surface area Derived from formula2.01 m2Karl L Oberer Work Phone: DE-Iriociw[address] [place] [address] Work Phone: [phone] 12:01-0400Body uujdkflyfcp22.8 [degF]Hayden L Oberer Work Phone: 1(378)[address] [place] [address] Work Phone: [phone] 12:01-0400Body .56 kgKarl L Oberer Work Phone: 1(140) 502-9507165-6975EX[facility]qa[facility] Work Phone: 1(187) 997-743508-23-2022 12:01-0400Diastolic blood zlgenqdl53 mm[Hg] Hayden L Oberer Work Phone: 1(020)[phone]-TlbknieSelect Specialty Hospital Work Phone: 1(300)[phone] 12:01-0400Heart rate48 /minKarl L Oberer Work Phone: 1(587)[phone]-QoykpdzSelect [facility] Hospital Work Phone: 1(976)[phone] 12:01-0400Respiratory rate16 /minKarl L Oberer Work Phone: 1(284)[phone]-MnjrbbxSelect [facility]ty Hospital Work Phone: 1(958)[phone] 12:01-7612BdX4% (BldA) [Mass fraction]95 % Hayden L Oberer Work Phone: 1(158)139-270-9581YV-UododhlSelect [facility]ty Hospital Work Phone: 1(153)[phone] 12:01-0400Systolic blood egowgpqz058 mm[Hg] Hayden L Oberer Work Phone: 1(976)540-895-3867YW-HmdgvtcSelect [facility]ty Hospital Work Phone: 1(419) 288-360005-03-2022 11:15-0400Body ihqwle240.34 cmChristopher Janes Other [employer] Other 05-03-2022 11:15-0400Body mass index (BMI) [Ratio] 26.36 kg/c6Qhubneaelpx Janes Other [employer] Other 05-03-2022 11:15-0400Body rqpsfannebk30 [degF] Christopher Janes Other [employer] Other 05-03-2022 11:15-0400Body .73 kgChristopher Janes Other [employer] Other 05-03-2022 11:15-0400Diastolic blood rlbwvbut40 mm[Hg] Kever Janes Other [employer] Other 05-03-2022 11:15-0400Respiratory rate20 /min Jacob Janes Other [employer] Other 05-03-2022 11:15-8457TcL7% (BldA) [Mass fraction]100 % Jacob Janes Other [employer] Other 05-03-2022 11:15-0400Systolic blood mm[Hg] Jacob Janes Other [employer] Other 05-02-2022 14:45-0400Body plmufz206.34 cmKarl Oberer Other [employer] Other 05-02-2022 14:45-0400Body mass index (BMI) [Ratio] 26.71 kg/m2Karl Oberer Other [employer] Other 05-02-2022 14:45-0400Body kkehvuohszq07 [degF]Hayden Oberer Other [employer] Other 05-02-2022 14:45-0400Body cuqmfo44.86 kgKarl Oberer Other [employer] Other 05-02-2022 14:45-0400Diastolic blood mm[Hg] Hayden Oberer Other [employer] Other 05-02-2022 14:45-0400Respiratory rate16 /minKarl Oberer Other [employer] Other 05-02-2022 14:45-8709TcK6% (BldA) [Mass fraction]98 % Hayden Oberer Other [employer] Other 05-02-2022 14:45-0400Systolic blood qwacaioq676 mm[Hg] Hayden Oberer Other [facility] [employer] Other 03-09-2022 11:22-0500Body hkjwow380.8 cmKarl L Oberer Work Phone: 1(329) [phone]-Qbcqq [place] [facility] 250 DO Work Phone: 1(986) [phone] 11:22-0500Body mass index (BMI) [Ratio] 26.83 kg/m2Karl L Oberer Work Phone: 1(713) [phone]-Cpffl [place] [facility] 250 DO Work Phone: 1(269) 385-555403-09-2022 11:22-0500Body surface area Derived from formula2.03 m2Karl L Oberer Work Phone: 1(884) 396-8377699-9354TQ-Onuxd [facility] 250 DO Work Phone: 1(720) 398-860803-09-2022 11:22-0500Body qareya23.82 kgKarl L Oberer Work Phone: 1(681) [phone]-Wcuhl [facility] 250 DO Work Phone: 1(550) 484-870003-09-2022 11:22-0500Diastolic blood ulsdahdq94 mm[Hg] Hayden L Oberer Work Phone: 1(821) 590-8550486-5784AO-Tngfy [place] [facility] 250 DO Work Phone: 1(469) [phone] 11:22-0500Heart rate56 /minKarl L Oberer Work Phone: 1(554) [phone]-Qftnu [facility] 250 DO Work Phone: 1(738) 116-981803-09-2022 11:22-0500Systolic blood qktkbxay386 mm[Hg] Hayden L Oberer Work Phone: 1(706) [phone]-Jhugt [facility] 250 DO Work Phone: 1(940) 116-142702-09-2022 11:36-0500Diastolic blood huosmclx52 mm[Hg] Hayden L Oberer Work Phone: 1(672) [phone]-Geskb [place] [facility] 250 DO Work Phone: 1(615) 340-675702-09-2022 11:36-0500Diastolic blood isyksecu18 mm[Hg] Hayden L Oberer Work Phone: 1(118) [phone]-Ftniw [place] [facility] 250 DO Work Phone: 1(252) 123-557302-09-2022 11:36-0500Systolic blood avwaoyai588 mm[Hg] Hayden L Oberer Work Phone: 1(581) [phone]-Ihnux [facility] 250 DO Work Phone: 1(496) [phone] 11:36-0500Systolic blood ricnfwut00 mm[Hg] Hayden L Oberer Work Phone: 1(749) [phone]-Yqtoa [facility] 250 DO Work Phone: 1(124) 763-733302-09-2022 11:29-0500Body rqptiq728.8 cmKarl L Oberer Work Phone: 1(865) [phone]-Aznbm [facility] 250 DO Work Phone: 1(598) 190-131502-09-2022 11:29-0500Body mass index (BMI) [Ratio] 26.83 kg/m2Juan Franciscol L Oberer Work Phone: 1(314) 375-5371997-6119PS-Ztasv [facility] 250 DO Work Phone: 1(169) 433-806002-09-2022 11:29-0500Body surface area Derived from formula2.03 m2Juan Franciscol L Oberer Work Phone: 1(818) [phone]-LfhheP[facility] 250 DO Work Phone: 1(194) 436-280802-09-2022 11:29-0500Body iabfcw50.82 kgKarl L Oberer Work Phone: mp488-0539MV-Daezs [facility] 250 DO Work Phone: 1(989) [phone] 11:29-0500Diastolic blood yevodwkt38 mm[Hg] Hayden L Oberer Work Phone: 1(500) 249-4337764-0600LQ-QyspcPipestone [facility]-[place] 250 DO Work Phone: 1(285) 812-315402-09-2022 11:29-0500Heart rate48 /minKarl L Oberer Work Phone: 1(986) [phone]-YmawbPipestone [facility] 250 DO Work Phone: 1(812) 995-608702-09-2022 11:29-0500Systolic blood mm[Hg] Hayden L Oberer Work Phone: 1(568) [phone]-GcmfjPipestone [facility]-[place] 250 DO Work Phone: 1(956) 635-829302-07-2022 09:25-661047.8 1Karl L Oberer Work Phone: 1(292) 434-7109944-3679KH-LcngdPipestone [facility] 250 DO Work Phone: Comment on above:[id number] 10:49-0500Diastolic blood asbyyyoy99 mm[Hg]Hayden L Oberer Work Phone: 1(325) [phone]-QbflePipestone County [facility] Center-[place] 250 DO Work Phone: 1(285) 817-655501-26-2022 10:49-0500Systolic blood gtrniyyn039 mm[Hg] Hayden L Oberer Work Phone: mp950-4373XM-ZojlrWad[facility]-[place] 250 DO Work Phone: 1(653) 682-193201-26-2022 10:14-0500Diastolic blood mm[Hg] Hayden L Oberer Work Phone: mp873-8334PN-ZexmsWadena Clinic-[place] 250 DO Work Phone: 1(851) 123-394001-26-2022 10:14-0500Systolic blood mm[Hg] Hayden L Oberer Work Phone: mp225-3900PV-Vmyta [place] [facility] 250 DO Work Phone: 1(702) 230-403501-26-2022 10:09-0500Body .8 cmKarl L Oberer Work Phone: mp945-2097FM-MqgfyWadena Clinic-[place] 250 DO Work Phone: 1(362) 541-607301-26-2022 10:09-0500Body mass index (BMI) [Ratio] 26.98 kg/m2Karl L Oberer Work Phone: mp804-0218LU-UfgrzWadena Clinic-[place] 250 DO Work Phone: 1(576) 535-740701-26-2022 10:09-0500Body surface area Derived from formula2.03 m2Karl L Oberer Work Phone: 1(548) [phone]-BuctrPipestone [facility]-[place] 250 DO Work Phone: 1(933) 499-455601-26-2022 10:09-0500Body nzwyms25.28 kgKarl L Oberer Work Phone: 1(211) [phone]-HukzqPipestone [facility]-[place] 250 DO Work Phone: 1(781) 299-200201-26-2022 10:09-0500Diastolic blood pakukhwi02 mm[Hg] Hayden L Oberer Work Phone: mp443-6914NT-EilwdWadena Clinic-[place] 250 DO Work Phone: 1(867) [phone] 10:09-0500Heart rate44 /minKarl L Oberer Work Phone: mp403-3946YD-Gunka [facility] 250 DO Work Phone: 1(139) 359-476501-26-2022 10:09-0500Systolic blood pqcfagzf732 mm[Hg] Hayden L Oberer Work Phone: mp895-4388UO-Zobmo [facility] 250 DO Work Phone: 1(828) 739-657712-14-2021 12:00-0500Body ufilkr188.34 cmCameron Ditty Other [employer] Other 12-14-2021 12:00-0500Body mass index (BMI) [Ratio] 25.94 kg/z3Iqqdvkp Ditty Other [employer] Other 12-14-2021 12:00-0500Body .37 kgCambrad Ditty Other [employer] Other 12-14-2021 12:00-0500Diastolic blood xwardmge53 mm[Hg] Crescencio Rosalinatty Other [employer] Other 12-14-2021 12:00-0500Systolic blood nisgrvmy318 mm[Hg] Crescencio Nyy Other [employer] Other 11-01-2021 16:00-0400Body ihtdvc204.34 cmKarl Oberer Other [employer] Other 11-01-2021 16:00-0400Body mass index (BMI) [Ratio] 26.02 kg/m2Karl Oberer Other [employer] Other 11-01-2021 16:00-0400Body eiwccqgcduf93.6 [degF]Hayden Oberer Other [employer] Other 11-01-2021 16:00-0400Body nhqjon05.64 kgKarl Oberer Other [employer] Other 11-01-2021 16:00-0400Diastolic blood hqcshiyi09 mm[Hg] Hayden Oberer Other [employer] Other 11-01-2021 16:00-0400Respiratory rate18 /minKarl Oberer Other [employer] Other 11-01-2021 16:00-3083LzH2% (BldA) [Mass fraction]97 % Hayden Oberer Other [facility] [employer] Other 11-01-2021 16:00-0400Systolic blood npyrjhfe840 mm[Hg] Hayden Oberer Other [employer] Other 1945 00:00-0400>na<[facility] Encounters Encounter DateEncounter TypeCare ProviderFacilityStart: 14-08-9431orjctmxqfz Evan MIGUELFacility: [place]vueStart: 47-01-3037bpdcmvnetfUeidtwa WATERS Facility: [place]Start: 09-16-2025 End: 38-17-5784jprypgavowBlay Oberer DO Work Phone: -[facility]eryStart: 09-16-2025 End: 91-48-7164Lbukgse encounter procedureKarl L Oberer DO-[facility] Work Phone: Start: 31-74-6811Jco-patient / Non-visitKarl L Oberer DO-[facility] [place] Work Phone: Start: 07-16-2025 End: 14-46-9856Bnrgel flowsEmory Cordova MD Work Phone: noOR [facility]atologyStart: 07-16-2025 End: 54-47-3467Wqgywt Chun Cordova MD Work Phone: noms [facility]ermatologyStart: 07-16-2025 End: 38-54-7304rvkgmiqaioDTLBV A PETITTINot AvailableStart: 07-16-2025 End: 03-93-1756Refqix outpatient visit 15 minutesEmellyn Corodva MD Work Phone: n[facility] DermatologyComment on above:Seborrheic keratosis (Primary Dx); Actinic keratosis; Seborrheic keratosis, inflamed; Neoplasm of unspecified behavior of bone, soft tissue, and skin; History of basal cell carcinoma (BCC); History of SCC (squamous cell carcinoma) of skin; LentiginesStart: 07-07-2025 End: 24-17-7355puczwcqvahRzjt Oberer DO Work Phone: [facility] Work Phone: Start: 07-07-2025 End: 38-85-2407Vdvvolq encounter procedureHayden Adams DOBaldwin Park [facility] Work Phone: Start: 06-20-2025 End: 84-50-5774Pcxtoq flowsheetAnthony S Rusher DPM Work Phone: [facility]Pl[facility]ryStart: 06-20-2025 End: 58-30-6264Etwjvw flowsheetAnthony S Rusher DPM Work Phone: [facility] [place] [facility]iatryStart: 06-20-2025 End: 03-14-4974yjcotwcrfqHOFKQTV S RUSHERNot AvailableStart: 06-20-2025 End: 46-74-3241Jysshw outpatient new 45 minutesAnthony S Rusher DPM Work Phone: noms [place] PodiatryComment on above:Neuritis (Primary Dx); Neuropathy, idiopathic; Left foot painStart: 06-17-2025 End: 11-95-4704dgtcdyfjkdGikt Oberer DO Work Phone: [facility] Work Phone: Start: 06-17-2025 End: 03-66-7523Iqkykul encounter procedureHayden Adams DOBaldwin Park Hospital Work Phone: Start: 05-22-2025 End: 95-41-3802zlravedbirYZTIFDI Sonny [facility] AmbulatoryStart: 05-22-2025 End: 02-56-7201Xddmtc outpatient visit 25 minutesBud Beatty DO Work Phone: uh [facility] HospitalComment on above:Atherosclerosis of coronary artery of lime heart without angina pectoris, unspecified vessel or lesion type; Hx of percutaneous transluminal coronary angioplasty; Ischemic cardiomyopathy; Malignant melanoma of back (Multi); History of coronary artery bypass graft; Dizziness; BMI 24.0-24.9, adult; Former smoker; Hyperlipidemia, unspecified hyperlipidemia typeStart: 26-33-5153Yna-patient / Non-visitCrescencio Mendez MD-[facility] [employer] Work Phone: Start: 05-15-2025 End: 81-07-4501dwtsazwbpgDxkr Oberer DO Work Phone: [facility] Work Phone: Start: 05-15-2025 End: 79-94-0540Gnvdrba encounter procedureCrescencio Mendez MD-[facility] Work Phone: Start: 03-27-2025 End: 18-54-1681Ymjywlnajma Cordova MD Work Phone: noms SWS DERMStart: 03-27-2025 End: 62-36-3877Xmvqos Chun Cordova MD Work Phone: noms SWS DERMStart: 03-27-2025 End: 69-69-0087uwykqawqbqKYDFE A PETITTINot AvailableStart: 03-27-2025 End: 40-15-7143Cpvxhi follow up visit related to original Oscar Cordova MD Work Phone: noms SWS DERMComment on above:Encounter for removal of sutures (Primary Dx)Start: 03-18-2025 End: 08-61-6286xtisnsfryjEeruhon Papo Work Phone: [facility] Work Phone: Start: 03-18-2025 End: 82-46-4713Fxuamsq encounter procedureGundersen Boscobel Area Hospital And Clinicsmeaghan Tejedat Work Phone: 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 Phys[facility] GroupFormerly [facility] Work Phone: Start: 02-12-2025 End: 02-84-3519nrhnwrwujnRxccpcr Papo Work Phone: [facility] Work Phone: Start: 02-12-2025 End: 76-89-1610Avfmeos encounter procedureGundersen Boscobel Area Hospital And Clinicsmeaghan Tejedat Work Phone: [facility] Work Phone: Start: 02-11-2025 End: 59-47-4286Hfxvdn outpatient visit 15 minutesJake SANDERS Work Phone: noms SWS DERMComment on above:Capillary angioma (Primary Dx); Seborrheic keratosis; Actinic keratosis; Lentigo simplex; History of basal cell carcinoma (BCC); History of SCC (squamous cell carcinoma) of skin; Personal history of malignant melanoma of skin; Neoplasm of unspecified behavior of bone, soft tissue, and skinStart: 02-11-2025 End: 53-44-3476ukwkuqfuqpXCEEI [facility] HOSPITALMNot AvailableStart: 09-24-2024 End: 82-74-1708fxzznuvzdtMtmy Oberer DO Work Phone: [facility] Work Phone: Start: 09-24-2024 End: 50-69-2118Wvnukcz encounter procedureKarl Oberer DO Work Phone: [facility] Family Medicine [place] Work Phone: Start: 17-22-2243Oza-patient / Non-visitKarl Oberer DO Work Phone: [facility] Work Phone: Start: 03-96-5771Cwh-patient / Non-visitDO Hayden Oberer Work Phone: [facility] Work Phone: Start: 08-26-2024 End: 26-61-5932Riatszsou to same day surgery centerDO Hayden Oberer Work Phone: [facility] Work Phone: Start: 08-26-2024 End: 42-45-9755dfjsdufdkeQJ Hayden Oberer Work Phone: [facility] Work Phone: Start: 08-20-2024 End: 71-47-9976Srotqbkhoq hospital visit by Gloria Davis Echo/Vasc Room 2[facility]Commun[facility] on above:Atherosclerosis of coronary artery of lime heart without angina pectoris, unspecified vessel or lesion type; History of coronary artery bypass graft; Ischemic cardiomyopathy; Hyperlipidemia, unspecified hyperlipidemia type; DizzinessStart: 08-20-2024 End: 07-93-6670fjtzdwvqvgLQIDDMZKeenan Private Hospitaltart: 07-31-2024 End: 02-16-6642aqhbkdikgtUeppqio Dwight Work Phone: [facility] Work Phone: Start: 07-31-2024 End: 62-19-8811Vczumeu encounter procedureОльга Barros Work Phone: [facility] Gastroenterology Work Phone: Start: 07-16-2024 End: 08-19-9548Gesiln outpatient visit 25 Tim Beatty DO Work Phone: uh CinnaBidComment on above:Atherosclerosis of coronary artery of lime heart without angina pectoris, unspecified vessel or lesion type; Beta-ezequiel intolerance; History of coronary artery bypass graft; Former smoker; BMI 24.0-24.9, adult; Ischemic cardiomyopathy; Essential hypertension; Hyperlipidemia, unspecified hyperlipidemia type; DizzinessStart: 07-16-2024 End: 95-79-4339rzjrfxvrkwFZIJMYMAdventHealth Gordon AmbulatoryStart: 04-02-2024 End: 05-20-9294Ahtqvd outpatient visit 25 Tim Beatty DO Work Phone: uh Moy Univerveterans health administrationComment on above:Atherosclerosis of coronary artery of lime heart without angina pectoris, unspecified vessel or lesion type; Ischemic cardiomyopathy; CHF (NYHA class II, ACC/AHA stage C) (Multi); Former smoker; Overweight (BMI 25.0-29.9); Dizziness; Bradycardia; Blurred vision; Chronic obstructive pulmonary disease, unspecified COPD type (Multi)Start: 03-15-2024 End: 60-99-0322xqzcmbkekrTpwdjcx Dwight Work Phone: [facility] Work Phone: Start: 03-15-2024 End: 47-70-3709Mlqygdi encounter procedureОльга Barros Work Phone: [facility] Family Medicine [place] Work Phone: Start: 29-08-0554Vdd-patient / Non-visitRichard Papo Work Phone: [facility] GroupFormerly [facility] Work Phone: Start: 02-13-2024 End: 32-39-5745kexvcxascbHpfslsj Dwight Work Phone: [facility] Work Phone: Start: 02-13-2024 End: 36-95-0635Xtveodw encounter procedureRichmeaghan Tejedat Work Phone: [facility] [place] Work Phone: Start: 48-83-0655Lwr-patient / Non-visitRichard Papo Work Phone: firb[facility] cityp [facility] Work Phone: Start: 01-09-2024 End: 92-40-7739Yzqpnysxqt hospital visit by Gloria Urban [address]Comment on above:Ischemic cardiomyopathy; CHF (NYHA class II, ACC/AHA stage C) (CMS/HCC)Start: 01-09-2024 End: 46-69-0713slrkpzoqvtOHWVBFBKeenan Private Hospitaltart: 12-20-2023 End: 43-91-7596Njaciv outpatient visit 40 [facility] Work Phone: [facility] on above:Atherosclerosis of coronary artery of lime heart without angina pectoris, unspecified vessel or lesion type; Status post angioplasty; Ischemic cardiomyopathy; CHF (NYHA class II, ACC/AHA stage C) (CMS/HCC); History of coronary artery bypass graft; Essential hypertension; Hyperlipidemia, unspecified hyperlipidemia type; Bradycardia; Former smokerStart: 10-20-2023 End: 77-14-1989uxbkqqgeksJjff Oberer Other [facility] [employer] Other Start: 05-05-2126Alhphhvja encounterKarl ObererFPG Family Medicine SanduskyStart: 10-17-2023 End: 23-96-5302raggsgbbplDbuh Oberer Other [employer] Other Start: 79-71-2996Qeugulvjk encounterKarl ObererFPG Family Medicine [place]uskyStart: 10-02-2023 End: 67-60-0994oltbotguouUdid Oberer Other [employer] Other Start: 51-78-9111Fgwdnrpuf encounterKarl ObererFPG Family Medicine [place]kyStart: 09-13-2023 End: 05-96-4051bhwxqdiggmMezm Oberer Other [employer] Other Start: 54-14-6949Virxoneti encounterKarl ObereChildren's Hospital [facility] [place]kyStart: 05-01-2023 End: 54-06-8850guemxlfluiEggx Oberer Other [employer] Other Start: 10-52-8437Sljyipilu encounterKarl ObereChildren's Hospital Colorado Family Medicine Riverton AveStart: 03-14-2023 End: 38-90-7866qwssegmjxwLxgpzqkcojs Janes Other [employer] [place] Other Start: 77-02-8083Sdwsmnkby for general adult medical examination without abnormal findingsKarl ObUCHealth Highlands Ranch Hospital Family Medicine [place] Start: 92-97-4119Wmjgaw outpatient visit 15 minutesChristopher AvendanoFPG Pulmonary DiseaseStart: 23-02-2367Tbzalqv encounter procedureKarl ObUCHealth Highlands Ranch Hospital Family Medicine SanduskyStart: 03-10-2023 End: 31-08-0159ftkgzebcetEA HAYDEN OBERERFacility:F2Skdoe: 01-18-2023 End: 47-77-2607suxoovmkcuMhvqsdu Ditty Other [employer] Other Start: 00-21-1380Rdbrbcm encounter procedureCameron DittyFPG GastroenterologyStart: 72-29-6964upaltmlyxkFvxt Joey Oberer Facility:[id number]: 81-24-8195Qtbqlk outpatient visit 25 minutesKarl L Oberer Work Phone: [phone]-Illto [facility] 250 DO Work Phone: Start: 09-30-2022 End: 91-79-0029tjtxthuruhJylsbcp Ditty Other [employer] Other Start: 00-01-2156Qamizfzfi encounterCameron DittyFPG GastroenterologyStart: 09-29-2022 End: 49-36-2736tgpbiirtrkIkrusut Ditty Other [facility] Other Start: 53-16-3992Mlbcdpzfl encounterCameron DittyFPG GastroenterologyStart: 09-19-2022 End: 29-41-8765ixhbiprprjSjlp Oberer Other [employer] [place] Other Start: 94-27-5834Sglpbtyiu encounterKarl ObererFWilliamson Medical Center AveStart: 09-13-2022 End: 24-79-8707aiqnwhccmkVqgo Oberer Other [employer] [place] Other Start: 46-29-2949Kygzdy outpatient visit 25 minutes Hayden ObereSonoma Speciality HospitalyStart: 53-36-2161Svpcla follow up visit related to original pxKarl L Oberer Work Phone: mpSonoma Speciality Hospital 100 Work Phone: Start: 50-22-7064fsjtijzwqzWpur Joey Oberer Facility:[id number]: 09-02-2022 End: 96-66-0785qkfdtczjynXF HAYDEN MOSQUEDAERERFacility:B4Ortpk: 63-64-7029huqlqcugduJu. ОЛЬГА GAMINORon JacintoFacility:[id number]: 05-72-8176Yrebbug encounter procedureHayden Hines Oberer Work Phone: [phone]-Fswgjja-Ladan MOB02 [place] Work Phone: Start: 99-63-3959iumkzohfbwYz. ОЛЬГА GAMINORon JacintoFacility:813[address]Gxpfa: 95-52-1900Olzyyq follow up visit related to original px Hayden L Oberer Work Phone: mp-[facility] Work Phone: Start: 29-01-6755qgfdgzzbexBj. ОЛЬГА GUERRERO KAREN JacintoFacility:50[address]Dtmed: 18-51-1556Pm RenewalHayden L Oberer Work Phone: [phone]-Tfnzx [facility] 250 DO Work Phone: Start: 60-47-2143Zwaqy UpdateHayden L Oberer Work Phone: [phone]-TctlydwHelen [facility]berry [facility] Work Phone: start: 07-07-2022 End: 09-22-0164alqtyrpmzsHr. Hayden MccarthyrFacility:9537Start: 07-05-2022 ambulatoryThomas Brien SanfordFacility:44[address]Jilqu: 82-08-3552Txazrysnz for preprocedural cardiovascular examinationProvidence Sacred [facility] Start: 99-93-3373Kffvaquav for preprocedural laboratory examinationProsser Memorial Hospitaltart: 59-57-5360OzjsJulita Hinson of Dermatology Start: 13-15-5399XXILOWqlo L Oberer Work Phone: [phone]-WsnluvoHelen Newberry Joy Hospital Work Phone: start: 07-20-4305Xbiun UpdateKarl L Oberer Work Phone: [phone]-MnxddycHelen [facility]berry [facility] Work Phone: start: 96-15-4482eykfjzacgpWu. Desire Divina Facility:9324Start: 69-01-6035Sz RenewalKarl L Oberer Work Phone: [phone]-NzwztR[facility]view [facility] 250 DO Work Phone: Start: 03-15-2022 End: 69-76-2061vjxhfkiftrHrtyuwkiabw Janes Other [facility] [employer] Other Start: 89-99-8636Qxajfj outpatient visit 15 minutes Jacob AvendanoFPG Pulmonary DiseaseStart: 03-14-2022 End: 11-09-6746fmlzbaxgyjOnuw Oberer Other [facility] [employer] Other Start: 68-63-9119Rqojyt outpatient visit 40 minutes Hayden Oliveros [facility] Medical CenteryStart: 87-92-6323rtnwipctfxKaja Joey ObererFacility:28424Jmyeh: 00-40-8475Hcubbq outpatient visit 10 minutesKarl L Oberer Work Phone: [phone]-DvfcnRidgeview Medical Center 250 DO Work Phone: Start: 92-60-6322ifogwwhnvsGpyw Joey Oberer Facility:48320Wnfhi: 08-97-1777Bwmfioh encounter procedureKarl L Oberer Work Phone: [phone]-AmzriRidgeview Medical Center 250 DO Work Phone: Start: 25-20-8671jtnklyhovbZxep Joey Oberer Facility:14978Cyxid: 92-52-4434Ciwahp outpatient visit 15 minutesKarl L Oberer Work Phone: [phone]-CtgnmRidgeview Medical Center 250 DO Work Phone: Start: 51-85-6866Eajbykw encounter procedureKarl L Oberer Work Phone: [phone]-Nlgcb [facility] 250 DO Work Phone: Start: 04-91-0836rqpfgfhoyjSudf Joey Oberer Facility:98877Qpmor: 11-19-2021 End: 64-98-7941qedoxpbblyKujk Oberer Other [facility] [employer] Other Start: 99-42-9719Uxytciurb encounterKarl ObereChildren's Hospital [facility] Family [facility] Riverton AveStart: 10-26-2021 End: 03-15-3181ddsyeaefmfYbsoyzh Ditty Other [employer] Other Start: 15-14-0652Gisucgz encounter procedureCameron DittyFPG GastroenterologyStart: 10-25-2021 End: 24-82-6705cpwpvfmsncEhme Oberer Other [employer] Other Start: 92-76-3685Wseauqwmt encounterKarl ObereChildren's Hospital [facility] Family [facility] Riverton AveStart: 09-20-2021 End: 42-05-3250ygyrxehatjTgimuru Ditty Other [employer] Other Start: 46-10-1284Nvkflpmui encounterCameron DittyFPG GastroenterologyStart: 09-13-2021 End: 32-65-3897bbrsbidfsiVfna Oberer Other [employer] [place] Other Start: 71-27-0398Ankjwr outpatient visit 25 minutes Hayden ObUCHealth Highlands Ranch Hospital Family Medicine Riverton AveStart: 60-68-8116Jizwzdgtwk and management of inpatientRichard Papo Work Phone: [facility] Work Phone: Procedures DateProcedureProcedure DetailPerforming ClinicianStart: 07-16-2025 End: 68-87-8390OTHH / NAIL BIOPSYEmellyn Cordova MD Work Phone: Start: 07-16-2025 End: 55-92-2351QFBAAFOKHRO SKIN LESIONEmily Дмитрий Cordova MD Work Phone: Start: 74-07-3863Sozoafs of percutaneous transluminal coronary angioplastyHx of percutaneous transluminal coronary angioplastyChandrikaanahi Beatty DO Work Phone: Start: 18-62-1649YJTQ REPAIREmellyn Cordova MD Work Phone: Start: 83-83-7846BPNG EXCISIONEmily Дмитрий Cordova MD Work Phone: Start: 96-10-8679LTCO / NAIL BIOPSYRylee [facility] Work Phone: Start: 72-64-3793TNPKACHWEQT SKIN LESIONRylee [facility] Work Phone: Start: 73-58-0191Endxmhqr fiberoptic sigmoidoscopyDO Hayden Oberer Work Phone: Start: 07-34-9508IN HEART BLOOD POOL EJECTION FRACTION WALL MOTION (MUGA)BUD BEATTYStart: 28-96-9734Knpa blood pool gated planar 1 study rest/stressLuis Eduardofred S Rogerio DO Work Phone: Start: 07-99-3763Kfqolqr of coronary artery bypass graftingHistory of coronary artery bypass graftWigermanm Rogerio DO Work Phone: Start: 43-63-2750Spdy LarsonAppendectomyKarl L Oberer Work Phone: Coronary artery bypass graftKarl L Oberer Work Phone: Excision of melanomaKarl L Oberer Work Phone: History of coronary artery bypass graftingHistory of coronary artery bypass graftKarl L Oberer Work Phone: History of coronary artery bypass graftingHistory of coronary artery bypass graftWillfred S Rogerio DO Work Phone: History of coronary artery bypass graftingHistory of coronary artery bypass graftEly 2History of coronary artery bypass grafting History of coronary artery bypass graftWianahi S Rogerio DO Work Phone: History of coronary artery bypass graftingHistory of coronary artery bypass graftWilliam S Rogerio DO Work Phone: Total colonoscopyKarl L Oberer Work Phone: Plan of Treatment DateCare ActivityDetailAuthorStart: 05-27-2026 End: 86-28-5294Alirlrm encounter vugqtlron38/15/2026 11:10 AM EDT Office Visit [place] [id number] [facility] [address] [place] [address] Bud Beatty DO [address] [facility] [address] [place] [address] FirelandsStart: 02-11-2026 End: 53-12-6010Piqolsb encounter procedureNOCOLUSA REGIONAL [facility] DERMStart: 10-22-2025 End: 99-11-8487Tozizbh encounter /10/2025 2:00 PM EST Office Visit [facility]ITA [facility] Podiatrphillip [address] [place] [address] Job Helm DPM [address] [place] [address] MARQUITA Schumacher PodiatryStart: 10-21-2025 End: 51-69-8528Hgytnti encounter jipbenngc92/09/2025 1:50 PM EST Office Visit MARQUITA [facility]at[facility] [address] [place] [address] Jennifer Cordova MD [address] [place] [address] NOMSonny [place] DermatologyStart: 07-16-2025 End: 63-14-0529Jrxeqia encounter dutfgeqlz03/03/2025 1:30 PM EDT Office Visit [facility] [place] [facility] [address] [place] [address] Jennifer Cordova MD [address] [place] [address] [facility] [place] DermatologyStart: 07-14-2025 Influenza vaccinationDeaconess Incarnate Word Health SystemStart: 06-11-2025 End: 73-80-3166Vjinpju encounter iipsyyzjy23/30/2025 2:15 PM EDT Office Visit [facility] [address] [place] [address] Jennifer Cordova MD [address] [place] [address] [facility] DERMStart: 04-08-2025 End: 28-41-2928Cmjzjdd encounter qphvjxoam88/27/2025 1:40 PM EDT Office Visit [facility] [address] [place] [address] Bud Beatty DO [address] [place] [address] [facility]aryStart: 03-26-2025 End: 94-95-2853Ciregla encounter neoiqrdba00/14/2025 1:45 PM EDT Office Visit [facility] [address] [place] [address] Jennifer Cordova MD [address] [place] [address] NOMS SWS DERMStart: 17-48-0578RpmlwexyyMount St. Mary Hospitaltart: 08-20-2024 End: 99-97-1517Rkkhghn encounter ecwsramxz31/08/2024 2:30 PM EDT Appointment [place] [address] [facility] [address] [place] [address] RWAdventHealth [facility]: 07-16-2024 End: 95-00-9515KN.doppler Carotid arteries - bilateralVascular US Carotid Artery Duplex Bilateral Vascular Ultrasound Routine Atherosclerosis of coronaryartery of lime heart without angina pectoris, unspecified vessel or lesion type History of coronary artery bypass graft Ischemic cardiomyopathy Hyperlipidemia, unspecified hyperlipidemia type Dizziness Expected: 07/16/2024 (Approximate), Expires: 07/16/2026[facility] Work Phone: Comment on above:Expected: 07/16/2024 (Approximate), Expires: 07/16/2026Start: 07-16-2024 End: 94-85-7494Fgxrbmc encounter atovqwjmt59/03/2024 11:00 AM EDT Office Visit [address] [place] [address] Bud Beatty DO [address] [facility] [address] [place] [address] [facility]: 80-74-0747DNIAH-19 Vaccine ( season)COVID-19 Vaccine ( season)[facility]: 34-03-3782JJQLS-19 Vaccine ( season)COVID-19 Vaccine ( season)[facility]: 99-28-1769Hkmjxqyab vaccinationOhioHealth Marion General Hospital: 04-18-2024 End: 49-27-9377Vrwqejrenalg / ancillary services /06/2024 10:00 AM EDT Ancillary Procedure [address] [address] [facility]JRiddle [facility]: 04-16-2024 End: 50-88-4979Soiwhs monitor studyHolter Or Event Laborer Driver Cardiac Services Routine Dizziness Bradycardia Expected: 04/16/2024(Approximate), Expires: 04/02/2025[facility] Work Phone: Comment on above:Expected: 04/16/2024 (Approximate), Expires: 04/02/2025Start: 04-02-2024 End: 13-11-5567Ozugkaa encounter rbhagmhmx93/21/2024 1:40 PM EDT Office Visit [facility] [address] [facility] [address] [place] [address] Bud Beatty DO [address] [place] [address] [facility]aryStart: 01-19-2024 End: 56-72-8367Dsholddcfssq / ancillary services mlmyeekypn55/08/2024 1:00 PM EST Ancillary Procedure [facility] [address] [facility] [address] [place] [address] [facility]aryStart: 01-09-2024 End: 59-17-8297Ocmbuot encounter procedure Jennifer [facility]Start: 12-20-2023 End: 79-88-8029Unyps metabolic 2000 panel - Serum or PlasmaBasic Metabolic Panel Lab Routine Ischemic cardiomyopathy CHF (NYHA class II, ACC/AHA stage C) (CMS/ HCC) Essential hypertension Expected: 12/20/2023 (Approximate), Expires: 12/20/2024[facility] Work Phone: Comment on above:Expected: 12/20/2023 (Approximate), Expires: 12/20/2024Start: 12-20-2023 End: 95-33-7716Yctkxf monitor studyHolter Or Event Laborer Driver Cardiac Services Routine Bradycardia Expected: 12/20/2023, Expires:12/20/2024[facility] Work Phone: Comment on above:Expected: 12/20/2023, Expires: 12/20/2024Start: 12-20-2023 End: 97-24-1928Pqjtauobnhs peptide B [Mass/volume] in BloodB-Type Natriuretic Peptide Lab Routine Ischemic cardiomyopathy CHF (NYHA class II, ACC/AHA stage C) (CMS/HCC) Essential hypertension Expected: 12/20/2023 (Approximate), Expires: 12/20/2024UnOhioHealth [facility]ville [facility] Center Work Phone: Comment on above:Expected: 12/20/2023 (Approximate), Expires: 12/20/2024Start: 12-20-2023 End: 63-59-2670TK Heart Wall motion and Ejection fractionNM heart blood pool ejection fraction wall motion (MUGA) Imaging Routine Ischemic cardiomyopathy CHF (NYHA class II, ACC/AHA stage C) ([facility]/HCC) Expected: 12/20/2023, Expires: 12/20/2024UnOhioHealth Nelsonville Health Center Work Phone: Comment on above:Expected: 12/20/2023, Expires: 12/20/2024Start: 68-96-3242KXR, Provider: Bud Beatty, Status: Pen, Time: 10:50 AMFUV, Provider: Bud Beatty, Status: Pen, Time: 10:50 AMMP-[facility] Hospitalusky 250 DO Work Phone: Start: 70-84-2058BVMJG-19 Vaccine ( season) COVID-19 Vaccine ()[facility]: 78-47-3028Nsieibyew vaccinationInfluenza Vaccine (#1)[facility]: 18-49-8754Sxpydkmpkl measurementCreatinine LevelOhioHealth Marion General Hospital: 79-39-8965Nxnrstea mellitus screeningDiabetes ScreeningOhioHealth Marion General Hospital: 43-07-6241Xskpeulfw measurement Potassium LevelUnKettering Health Main Campus: 90-67-2800JIM, Provider: Bud Beatty, Status: Pen, Time: 11:20 AMFUV, Provider: Bud Beatty, Status: Pen, Time: 11:20 AMMP-[facility] [address] DO Work Phone: Start: 38-64-8544HJC, Provider: Ольга Brown, Status: Pen, Time: 12:40 PMFUV, Provider: Ольга Brown, Status: Pen, Time: 12:40 PM TY-Yabentt-Qzoc [place]OB02 [place] Work Phone: Start: 72-42-6036HLP, Provider: Ольга Brown, Status: Pen, Time: 12:20 PMPOV, Provider: Ольга Brown, Status: Pen, Time: 12:20 PMChippewa City [facility] 250 DO Work Phone: Start: 15-79-0354RJU, Provider: Ольга Brown, Status: Pen, Time: 11:20 AMPOV, Provider: Ольга Brown, Status: Pen, Time: 11:20 AM VY-Lyidkgm-WawmteaVeterans Affairs Medical Center Work Phone: start: 99-28-9382RTLMOEJ, Provider: Ольга Brown, Status: Pen, Time: 4:00 [facility], Provider: Ольга Brown, Status: Pen, Time: 4:00 HMLE-Hacxoyd-RqhlsoiSelect Specialty Hospital Work Phone: start: 90-53-7593UQE, Provider: Ольга Brown, Status: Pen, Time: 12:00 PMNPV, Provider: Ольга [place], Status: Pen, Time: 12:00 PM [facility] Work Phone: start: 39-11-1766ZMN, Provider: Yaritza Beard, Status: Pen, Time: 1:00 PMFUV, Provider: Yaritza Beard, Status: Pen, Time: 1:00 PMSh[facility]ers Children's [facility] CitiesRay[place] 250 DO Work Phone: Start: 85-41-8986SWE, Provider: Yaritza Beard, Status: Pen, Time: 11:00 AMFUV, Provider: Yaritza Beard, Status: Pen, Time: 11:00 AMShriners Children's Twin CitiesRay[place] 250 DO Work Phone: Start: 89-21-5433WRFSDT MON, Provider: DANIEL WOLF ROTATING EQUIPMENT ENGINEER 1,[id number], Status: Pen, Time: 11:00 AMHOLTER MON, Provider: DANIEL WOLF ROTATING EQUIPMENT ENGINEER 1,[id number], Status: Pen, Time: 11:00 [facility] [address] DO Work Phone: Start: 73-79-4323VRJ High Risk: (Elderly (60+) or Population) (1 - 1-dose 75+ series)RSV High Risk: (Elderly (60+) or Population) (1 - 1-dose 75+ series)[facility] Start: 08-69-1964LFM patients and/or patients aged 60+ years (1 - 1- dose 60+ series)RSV patients and/or patients aged 60+ years (1 - 1-dose 60+ series)[facility]: 59-09-7439Uexgtp Vaccines (1 of 2)Zoster Vaccines (1 of 2)[facility]: 1966 DTaP/Tdap/Td Vaccines (1 - Tdap)DTaP/Tdap/Td Vaccines (1 - Tdap)[facility]: 98-42-6404Jntiirpn mellitus screeningDiabetes ScreeningUnKettering Health Main Campus: 49-14-2301Guhobhhgj C screening Hepatitis C ScreeningUnKettering Health Main Campus: 1944 Examination of skinDerm Melanoma Skin CheckUnOhioHealth Nelsonville Health Center Start: 56-50-3780GohxoeghnaiinuujBfnyipcjnopbokJhaodcwljl [facility] Start: 09-31-2927Jbyac panelLipid PanelUnKettering Health Main Campus: 1944Medicare Annual Wellness VisitMedicare Annual Wellness Visit (AWV) [facility]: 37-64-8787Vcmy Cancer ScreeningSkin Cancer ScreeningUnOhioHealth Nelsonville Health CenterDermatopathology exam Dermatopathology exam Pathology and Cytology Timed Neoplasm of unspecified behavior of bone, soft tissue, and skin Release Upon Ordering for 1 Occurrences starting 02/11/2025[facility] Work Phone: comment on above:Release Upon Ordering for 1 Occurrences starting 02/11/2025Dermatopathology examDermatopathology exam Pathology and Cytology Timed 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) Rele ase Upon Ordering for 1 Occurrences starting 03/12/2025[facility] Work Phone: compjbn on above:Release Upon Ordering for 1 Occurrences starting 03/12/2025Dermatopathology examDermatopathology exam Pathology and Cytology Timed Neoplasm of unspecified behavior of bone, soft ti ssue, and skin Release Upon Ordering for 1 Occurrences starting 07/16/2025[facility] Work Phone: comwqoi on above:Release Upon Ordering for 1 Occurrences starting 07/16/2025Hepatic function panelFulton County Health CenterPatient EducationOhio Valley Hospital Work Phone: End: [phone].doppler Carotid arteries - Critical access hospital Service Area Work Phone: Comment on above:Once for 1 Occurrences starting 08/20/2024 until 08/20/2024[facility] Immunizations Immunization DateImmunizationNotesCare [id number]-69 Vaccine Pfizer - Documentation Purposes OnlyKarl Oberer Other [facility]03-10-2021COVID-19 Vaccine Pfizer - Documentation Purposes OnlyKarl Oberer Other [facility]11-01-2019influenza, injectable, quadrivalent, preservative freeKarl Oberer Other [facility]11-01-2019influenza virus vaccine, unspecified formulationBud Beatty DO Work Phone: [facility] Work Phone: [phone]) [phone]muiyjd virus vaccine, unspecified formulationKarl L Oberer Work Phone: [phone]-SksezNorthwest Medical Center 250 DO Work Phone: [phone]z, seasonal, injectableKarl Oberer Other [facility]10-01-2018influenza virus vaccine, unspecified formulationKarl L Oberer Work Phone: [phone]-EkjhnJoseph [place] [address] DO Work Phone: [phone]tbeqhm conjugate vaccine, 13 valent Hayden Oberer Other [place] Other [id number], injectable, quadrivalent, preservative freeKarl Oberer Other [address] [place], [place] 1905603-04-2016 pneumococcal polysaccharide vaccine, 23 valentKarl Oberer Other [facility] [employer] Other [id number], seasonal, injectableKarl Oberer Other [address]01-01-2015 pneumococcal polysaccharide vaccine, 23 valentKarl L Oberer Work Phone: [phone]-MozfxJoseph [place] [address] DO Work Phone: [phone], seasonal, injectableKarl Oberer Other [address] [place], [place] 1905610-15-2012influenza, seasonal, injectableKarl Oberer Other [address] [place], [place] 1905610-20-2010influenza, seasonal, injectableKarl Oberer Other [facility]11-10-2005influenza, seasonal, injectableKarl L Oberer Work Phone: [phone]-KzzokJoseph [place] [address] DO Work Phone: [phone]ux conjugate vaccine, 7 valnichole Beatty DO Work Phone: [facility]1944 pneumococcal conjugate vaccine, 7 valentEmma LarsonDept. of Dermatology NEGATED: Highlighted row has not occurred!09-13-2021 influenza, seasonal, injectablePatient ObjectionKarl Oberer Other [facility] CenterNEGATED: Highlighted row has not occurred!80-62-4413vnhumppta, seasonal, injectablePatient Objection Hayden Oberer Other [facility] Payers DatePayer CategoryPayerPolicy [id number] 2023MedicareUNITED HEALTHCARE MEDICARE UNITED HEALTHCARE MEDICARE [id number] 2023-Present [address] [place], [place] [id number] 2023Medicare (Managed Care)[id number] 2023Medicare [id number] [id number] 2.0.3.161083.227919 [id number] 1960Private Health [id number] 2..1.766928.[id number] 2.840.1.858021.3.579.2.38450-41-3961Jrwehxq [id number] 2.16840.1.448970.3.57[id number] 2.840.1.642443.3.57[id number] 2.840.1.638658.3.57[id number] 2.16.840.1.575295.3.579.2.5[id number] 2.16840.1.546105.3.579.[id number] 2.16840.1.267778.3.57[id number] 2.16840.1.773115.3.57[id number] 2.16840.1.607778.3.579.2.[id number] 2.840.1.534465.3.579.2.21541-04-6247Uhahcgy963085377 2.0.1.641162.3.579.2.85104-06-5143Hjqvoxm26123825 2.840.1.395837.3.579.2.705671-94-8020Ayzeyse02007013 2.0.1.683417.3.579.2.497[id number] 2.0.1.610236.3.579.2.969133-00-2453Cfhrgzt1281795 2.0.1.993732.3.579.2.54546-88-7454Gwuwogp2878757 2.840.1.139662.3.579.2.08418-64-3896Wiedvtf47438892 2.16840.1.485891.3.579.2.327818-59-2455Rxxxqjm3339846 2.16840.1.573287.3.579.2.853996-44-8985Olhzbwn21727877 2.16840.1.483736.3.579.2.292194-94-3528Uusnqse347372906 2.16840.1.026417.3.579.2.587857-77-4511Irqiyje65879355 2.16840.1.075032.3.579.2.183179-55-7853Ikvtteo30973764 2.0.1.204258.3.579.2.525675-35-8392Zqyqhez47045810 2.0.1.366789.3.579.2.728685-21-3643Mmlmpsq8920836 2.0.1.121042.3.579.2.037894-92-1693Vlntzff0309545 2..1.650702.3.579.2.563918-18-1730Iyzhnao6046087 2..1.803796.3.579.2.240457-24-8715Rcxiqde39922980 2.0.1.41276[id number] 2.0.1.844947.19Medicare [id number] 2..1.372576.19MedicareMedicare [id number] Health [id number] [id number] p8vyf5ql-3i63-4506-999[id number] 2..1.198837.3.579.2.531 Social History DateTypeDetailFacilityStart: 10-11-2023 End: 84-71-7833Oxironex useCaffeine use-[facility] 250 DO Work Phone: Comment on above:COFFEE 2 CUPS DAILY;QUIT IN THE 80'S; Start: 10-11-2023 End: 81-35-3543Zor Assigned At [facility] [employer] Other Start: 23-75-2854WIYA HealthcareStart: 79-92-9800Qgv Assigned At [facility]art: 10-11-2023 End: 71-42-9986Zgokwmm smoking status NHISEx-smokerUnOhioHealth Nelsonville Health Center Work Phone: History of tobacco useCurrent smokerUnOhioHealth Nelsonville Health Center Work Phone: History of tobacco useCigarette SmokerUnOhioHealth Nelsonville Health Center Work Phone: Start: 10-11-2023 End: 59-11-3683Qtmkvdi use and exposureSmokeless tobacco non-userUnOhioHealth Nelsonville Health Center Work Phone: Start: 12-20-2023 End: 15-74-5277Unsbfrl intakeLifetime non-drinker (finding)[facility] Work Phone: Start: 07-14-6805Gnc Assigned At [facility] CityNot on file [facility] Work Phone: Start: 12-10-2023 End: 41-34-8441Abrntjad to SARS-CoV-2 (event)Not sureUnOhioHealth Nelsonville Health CenterStart: 09-24-2024 End: 51-44-8684DbvEqjh (finding)[facility] Hospitaltart: 36-93-8841Unxbnvx smoking status NHISNever smoked tobaccoNOOR HealthcareStart: 03-12-2025 End: 83-09-7122Cynngyljh beverage intakeDeferNOMS Healthcare Goals DatePatient GoalDesired Activity/State Clinical Notes 09-13-2021 to 07-16-2025 Note Date & LoeoBvrqXldvchqu53-95-1824 History of Present illness Narrative* Jennifer Cordova [...] or higher 2. ACTINIC KERATOSIS (10) Left Synagogue, Left Zygomatic Area (2), Mid Parietal Scalp [...] limited to risks of scarring, darker or blunger pigmentary changes, recurrence, incomplete removal and infection. [...] or tenderness Cryotherapy, skin lesion - Left Synagogue, Left Zygomatic Area (2), Mid Parietal Scalp (4), Right Buccal Cheek, Right Preauricular Area, Right Shoulder - Anterior 3. SEBORRHEIC KERATOSIS, INFLAMED (3) Left Malar Cheek, Right Malar Cheek (2) [place] and brown stuck on verrucous scaly papule [...] limited to risks of scarring, darker or blunger pigmentary changes, recurrence, incomplete removal and infection. 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 [...] months, pending bx results documented in this encounterDeaconess Incarnate Word Health SystemNjtnmomfro80-85-6720 Evaluation note* Diagnosis Onset Date Resolution Status Admit Date Skin fragility acuteAugust 2024 3:16pmSkin tear of forearm without complicationnoneactive July 07, 2025 3:16pm [facility] Work Phone: 1(391) 122-985008-08-2025 History of Present illness Narrative* Job Helm, ROWAN - 06/20/2025 10:15 AM EDT Images from the original note were not included. Subjective Patient ID: Junior Torres is a 80 y.o. 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 Assessment/Plan ICD-10-CM 1. Neuritis M79.2 C-Ydbobihytjyw-Skovn-B12-B6 (Metanx) 3-90.314-2-35 MG capsule 2. Neuropathy, idiopathic G60.9 G-Jcpnztyxyfqu-Fjoba-B12-B6 (Metanx) 3-90.314-2-35 MG capsule 3. Left foot [...] understanding. Job Helm DPM documented in this encounterDeaconess Incarnate Word Health SystemKincxhxikj37-26-4217 History of Present illness Narrative* Bud Beatty, [...] above anatomy with known occlusions of the lime RCA and c ircumflex, patent LAD and [...] Assessment/Plan 1. Atherosclerosis of coronary artery of lime heart without angina pectoris, unspecified vessel or lesion type Follow Up In Cardiology 2. Hx of percutaneous transluminal coronary angioplasty 3. Ischemic cardiomyopathy 4. Malignant melanoma of back (Multi) 5. History of coronary artery bypass graft 6. Dizziness 7. BMI 24.0-24.9, adult 8. Former smoker 9. Hyperlipidemia, unspecified hyperlipidemia type Scribe Attestation By signing my name below, Elin Caldwell LPN, Scribe attest that this documentation has been prepared under the direction and in the presence of Homero Beatty DO. Provider Attestation - Scribe documentation All medical record entries made by the Scribe were at my direction and personally dictated by me. Vi reviewed the chart and agree that the record accurately reflects my personal performance of the history, physical exam, discussion and plan. documented in this encounterSelect [facility] Work Phone: 1(621) 260-139007-10-2025 Instructions* Patient Instructions* Elin Parra LPN - [...] your visit. BMI normal documented in this encounterSelect Medical [facility]Health [facility] Hospital Work Phone: 1(505) 810-726707-03-2025 Evaluation note* Diagnosis Onset Date Resolution Status Admit Date GERD (gastroesophageal reflux disease) acuteJuly 2024 2:34pmMicroscopic colitisacuteJuly 2024 2:34pm Superficial bruising of upper limbnoneactiveAugust 2024 11:19am [facility] Work Phone: 1(466) 561-568605-15-2025 History of Present illness Narrative* Jennifer Cordova [...] Next Visit: as scheduled documented in this encounterDeaconess Incarnate Word Health SystemSgturpqzcf14-00-6798 Evaluation note* Diagnosis Onset Date Resolution Status Admit Date Asthma acuteMay 2024 1:11pmCAD (coronary artery disease)acuteMay 2024 1:11pm Chronic coughacuteMay 2024 1:11pmDiabetic peripheral neuropathy associated with type 2 diabetes mellitusacuteMay 2024 1:11pmEncounter for long-term (current) use of medicationsacuteMay 2024 1:11pmEssential (primary) hypertensionacuteMay 2024 1:11pmExternal hemorrhoidsacuteMay 2024 1:11pmGeneralized OAacuteMay 2024 1:11pmGERD (gastroesophageal reflux disease)acuteMay 2024 1:11pmGoutacuteMay 2024 1:11pmIschemic cardiomyopathyacuteMay 2024 1:11pmLymphocytic colitisacuteMay 2024 1:11pmMacrocytic anemiaacuteMa2024 1:11pmMelanomaacuteMay 2024 1:11pmMixed hyperlipidemiaacuteMay 2024 1:11pmPresbycusis of both earsacute May 2024 1:11pmRenal insufficiencyacuteMay 2024 1:11pmType 2 diabetes mellitus without complication, without long-term current usacuteMay 2024 1:11pmFlatulencenoneactiveMay 2024 1:11pmGERD (gastroesophageal reflux disease)acuteJuly 2024 2:34pmMicroscopic colitisacuteJuly 2024 2:34pm [facility] Work Phone: 1(228) 677-711904-30-2025 History of Present illness Narrative* Jennifer Cordova [...] in-situ Check Margins: yes Previous accession number: [id number] Excision today. See operative report. Return to [...] 14 days for s/r documented in this encounterDeaconess Incarnate Word Health SystemLurnsvjiiw23-21-3402 Evaluation note* Diagnosis Onset Date Resolution Status Admit Date GERD (gastroesophageal reflux disease) acuteApril 2024 2:10pmHiatal herniaacuteApril 2024 2:10pmLymphocytic colitisacuteApril 2024 2:10pm [facility] Work Phone: 1([phone]) 239-776804-01-2025 History of Present illness Narrative* Jake MARILYN Lofton - 02/11/2025 2:30 PM EDT Images from [...] Mitotic rate: 0/mm squared 2019, 1-2/mm squared 2021 Ulceration: not present Melanoma treatment: Wide excision [...] Dorsum of Nose, Left Dorsal Hand, Left Synagogue (2), Mid Forehead, Mid Frontal Scalp (2), [...] limited to risks of scarring, darker or blunger pigmentary changes, recurrence, incomplete removal and infection. [...] Dorsum of Nose, Left Dorsal Hand, Left Synagogue (2), Mid Forehead, Mid Frontal Scalp (2), [...] SCC (squamous cell carcinoma) of skin Left Synagogue No evidence of recurrence at SCC scar. [...] prior melanoma in 2021. documented in this encounterDeaconess Incarnate Word Health SystemWcdcqlscyq85-25-5513 Procedure noteFulton County Health Center09-18-2024 Evaluation note* Diagnosis Onset Date Resolution Status Admit Date Change in bowel habits acuteSept2023 1:08pmGERD (gastroesophageal reflux disease)acute July 31, 2024 1:08pmHiatal herniaacuteSeptember 2023 1:08pm Lymphocytic colitisacuteSept2023 1:08pm [facility] Work Phone: 1([phone]) 600-390209-03-2024 History of Present illness Narrative* Bud Beatty, [...] underlying COPD; he has not seen his children's attendant and he does not routinely take inhalers. [...] above anatomy with known occlusions of the lime RCA and c ircumflex, patent LAD and [...] Assessment/Plan 1. Atherosclerosis of coronary artery of lime heart without angina pectoris, unspecified vessel or lesion type Follow Up In Cardiology 2. Beta-ezequiel intolerance 3. History of coronary artery bypass graft 4. Former smoker 5. BMI 24.0-24.9, adult 6. Ischemic cardiomyopathy 7. Essential hypertension 8. Hyperlipidemia, unspecified hyperlipidemia type Scribe Attestation By signing my name below, Elin Caldwell LPN , Scribe attest that this documentation has been prepared under the direction and in the presence of Homero Beatty DO. Provider Attestation - Scribe documentation All medical record entries made by the Scribe were at my direction and personally dictated by me. Vi reviewed the chart and agree that the record accurately reflects my personal performance of the history, physical exam, discussion and plan. documented in this encounterSelect Medical [facility]Health [facility] Hospital Work Phone: 1(852) 242-179509-03-2024 Instructions* Patient Instructions* Fabiola Reddy CMA - [...] time of your visit. documented in this encounterUnOhioHealth Nelsonville Health Center Work Phone: 1([phone]) 155-157105-21-2024 History of Present illness Narrative* uBd Beatty DO - 04/02/2024 1:40 PM EDT Subjective [...] above anatomy with known occlusions of the lime RCA and c ircumflex, patent LAD and [...] Assessment/Plan 1. Atherosclerosis of coronary artery of lime heart without angina pectoris, unspecified vessel or lesion type Follow Up In Cardiology Follow Up In Cardiology 2. Ischemic cardiomyopathy Follow Up In Cardiology 3. CHF (NYHA class II, ACC/AHA stage C) (Multi) Follow Up In Cardiology 4. Former smoker 5. Overweight (BMI 25.0-29.9) 6. 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 Blurred vision 9. Chronic obstructive pulmonary disease, unspecified COPD type (Multi) Scribe Attestation By signing my name below, I, Vida Ramirez LPN attest that this documentation has been [...] exam, discussion and plan. documented in this encounterSelect Medical [facility]Health Rehabilitation Hospital Work Phone: 1(460) 841-663805-21-2024 Instructions* Patient Instructions* Leigh Carrion LPN - [...] Provided instructions on exercise. documented in this encounterSelect Medical [facility]Health [facility] Hospital Work Phone: [phone]) 281-632502-07-2024 History of Present illness Narrative* Bud Beatty DO - 12/20/2023 2:30 PM EST Subjective [...] above anatomy with known occlusions of the lime RCA and c ircumflex, patent LAD and [...] cardiovascular events. He has underlying history of [place] Heart Association class II/C heart failure, COPD, [...] Assessment/Plan 1. Atherosclerosis of coronary artery of lime heart without angina pectoris, unspecified vessel or lesion type 2. Status post angioplasty 3. Ischemic cardiomyopathy 4. CHF (NYHA class II, ACC/AHA stage C) (CMS/[facility]) 5. History of coronary artery bypass graft 6. Essential hypertension 7. Hyperlipidemia, unspecified hyperlipidemia type 8. Bradycardia 9. Former smoker Scribe Attestation By signing my name below, Ryann Caldwell LPN , Scribe attest that this documentation has been prepared under the direction and in the presence of Homero Beatty DO. documented in this [facility] Work Phone: 1([phone]) 515-381702-07-2024 Instructions* Patient Instructions* Francesca Knox RN - [...] time of your visit. documented in this [facility] Work Phone: 1([phone]) 641-398912-08-2023 Evaluation note* Encounter Date Diagnosis Assessment Notes Treatment Notes Treatment Clinical Notes Oct, Iron deficiency (ICD-10 - E61.1) [employer] Other 12-05-2023 Evaluation note* Encounter Date Diagnosis Assessment Notes Treatment Notes Treatment Clinical Notes Oct, Iron deficiency (ICD-10 - E61.1) [employer] Other 11-20-2023 Evaluation note* Encounter Date Diagnosis Assessment Notes Treatment Notes Treatment Clinical Notes Sep, Iron deficiency (ICD-10 - E61.1) [employer] Other 11-01-2023 Evaluation note* Encounter Date Diagnosis Assessment Notes Treatment Notes Treatment Clinical Notes Sep, Allergic rhinitis (ICD-10 - J30. 9) [employer] Other 06-19-2023 Evaluation note* Encounter Date Diagnosis Assessment Notes Treatment Notes Treatment Clinical Notes Apr, Gout (ICD-10 - M10.9) [employer] Other 05-02-2023 Evaluation note* Encounter Date Diagnosis Assessment Notes Treatment Notes Treatment Clinical Notes March, Cough (ICD-10 - R05) March,llergic rhinitis (ICD-10 - J30.9) March,Hiatal hernia (ICD-10 - K44.9) March,ERD (gastroesophageal reflux disease) (ICD-10 - K21.9) [employer] Other 05-02-2023 Evaluation note* Encounter Date Diagnosis [...] and Shingrix. After that vaccines will be ae-gh-eqsyBmioxijvm at his age no cancer screening is recommended unless Dr. Mendez wants to continue every 5 year colonoscopy because of history of polyps at his age. Currently oe-rr-rgawHa told my medical and scientific illustrator he did not want me to bring up or discuss advanced directives I gave him a handwritten summary of the above recommendations March,OtherRTO 6 months preceded by fasting CBC, BMP, hepatic panel, lipid profile, hemoglobin A1c, iron, TIBC, ferritin, reticulocyte count and sooner as needed. I completed a full lab panel because of medicalcomplexity. [employer] Other 03-08-2023 Evaluation note* Encounter Date Diagnosis [...] loose/watery bowel movements any time he eats. [employer] Other 11-07-2022 Evaluation note* Encounter Date Diagnosis Assessment Notes Treatment Notes Treatment Clinical Notes Sep, Gout (ICD-10 - M10.9) Sep,Mixed hyperlipidemia (ICD-10 - E78.2) [employer] Other 11-01-2022 Evaluation note* Encounter Date Diagnosis [...] not think we should intensify BP medications. [facility] is managing his hypertension. Sep,AD (coronary artery disease) (ICD-10 - I25.10)Clinically stable. Continue with NO Sep,sthma (ICD-10 - J45.909)Stable without medication. Continue with Dr. Marrero for his chronic cough Sep,cid reflux (ICD-10 - K21.9)Stable without medication. Sep,enal insufficiency (ICD-10 - N28.9)We discussed his mild [...] follow-up Sep,Ischemic cardiomyopathy (ICD-10 - I25.5)Continue with [facility]. See dictation above Sep,Microscopic colitis (ICD-10 - [...] A1c, iron, B12 and sooner as needed. [employer] Other 08-25-2022 NotePROCEDURE DETAILS Preoperative Diagnosis: Melanoma left upper back Postoperative Diagnosis: Melanoma left upper back Surgeon: Ольга Brown Resident/Fellow/Other Family Physician: Lavelle Foley Procedure: 1. WIDE LOCAL EXCISION [...] Details of procedure: The patient arrived at [facility] on 07/07/2022 for the aforementioned procedure. [...] complex multilayer fashion using deep 2-0 Vicryl ewkhve-jj-zswopv, interrupted 3-0 Vicryl deep dermals, and a [...] Completion Last Updated: 07-Jul-2022 18:00 by Ольга Brown)[facility] [place]07[place] NoteHistory & Physical Reviewed: I have [...] the note. I personally evaluated the patient [id number] Electronic Signatures: Ольга Brown) (Signed 08-Jul-2022 16:56) Authored: Note Completion Co-Signer: History & Physical Reviewed, ERAS, Consent, Note Completion Lavelle Foley (Resident)) (Signed 07-Jul-2022 15:37) Authored: History & Physical Reviewed, ERAS, Consent, Note Completion Last Updated: 08-Jul-2022 16:56 by Ольга Brown)[facility] [place] 07-07-2022 History of Present illness NarrativeMrSunni Torres [...] dermal nevi located at the mid superior margin.-[facility] Work Phone: 1([phone]) 258-806708-25-2022 History of Present illness NarrativeMrSunni Torres is [...] and there was no melanoma in the specimen.[facility] [employer] Work Phone: 1(234) 381-191505-03-2022 Evaluation note* Encounter Date Diagnosis Assessment Notes Treatment Notes Treatment Clinical Notes March, Cough (ICD-10 - R05) March,llergic rhinitis (ICD-10 - J30.9) March,Hiatal hernia (ICD-10 - K44.9) March,GERD (gastroesophageal reflux disease) (ICD-10 - K21.9) [employer] Other 05-02-2022 Evaluation note* Encounter Date Diagnosis [...] (ICD-10 - I25.10)See dictation above. Continue with NO March,sthma (ICD-10 - J45.909)His asthma/chronic cough is stable. Continue yearly visit with Dr. Marrero. Currently untreated March,2Renal insufficiency (ICD-10 - N28.9)Stable, longstanding. He saw [...] untreated March,Ischemic cardiomyopathy (ICD-10 - I25.5)Continue with [facility] March,Impaired glucose tolerance (ICD-10 - R73.02)Healthy diet and weight encouraged. Risk of diabetes discussed. At his age, I would be conservativeif he would become diabetic if not symptomatic March,Macrocytic anemia (ICD-10 - D53.9)This is mild. I will check B12 level, folate, iron next visit. March,2OtherRTO 6 months preceded by fasting CBC, BMP, lipid profile, hemoglobin A1c, B12, folate, iron and sooner as needed [employer] Other 12-14-2021 Evaluation note* Encounter Date Diagnosis Assessment Notes Treatment Notes Treatment Clinical Notes Oct, Diarrhea (ICD-10 - R19.7) Continue Imodium every morning. Follow up in 1 year Oct,Microscopic colitis (ICD-10 - K52.89) [employer] Other 11-08-2021 Evaluation note* Encounter Date Diagnosis Assessment Notes Treatment Notes Treatment Clinical Notes Sep, Asthma (ICD-10 - J45.909) [employer] Other 11-01-2021 Evaluation note* Encounter Date Diagnosis Assessment Notes Treatment Notes Treatment Clinical Notes Sep, Counseled about COVID-19 virus i nfection (ICD-10 - Z71.89) I did recommend he get the [employer] Covid booster. We did discuss that a [...] lab panel because of his medical complexity. [employer] Other Evaluation noteNo InformationNort [employer] Other Evaluation noteN/ADept. of Dermatology Evaluation note* Diagnosis Atherosclerosis of coronary artery of lime heart without angina pectoris, unspecified vessel or lesion type Status post angioplasty Postsurgical percutaneous transluminal coronary angioplasty status Ischemic cardiomyopathy Other specified forms of chronic ischemic heart disease CHF (NYHA class II, ACC/AHA stage C) ([facility]/HCC) Congestive heart failure, unspecified History of coronary artery bypass graft Postsurgical aortocoronary bypass status Essential hypertension Unspecified essential hypertension Hyperlipidemia, unspecified hyperlipidemia type Bradycardia Other specified cardiac dysrhythmias Former smoker Personal history of tobacco use, presenting hazards to health documented in this encounter [facility] Work Phone: Evaluation note* Diagnosis Ischemic cardiomyopathy Other specified forms of chronic ischemic heart disease CHF (NYHA class II, ACC/AHA stage C) (CMS/HCC) Congestive heart failure, unspecified documented in this encounter [facility] Work Phone: Evaluation noteNo assessment information available [facility] Work Phone: Evaluation note* Diagnosis Onset Date Resolution Status Asthma acuteChronic insomnianoneactivePeripheral neuropathynoneactiveSinusitis noneactiveAcute bronchitisnoneactiveCold intolerancenoneactiveIron deficiency noneactive [facility] Work Phone: Evaluation note* Diagnosis Atherosclerosis of coronary artery of lime heart without angina pectoris, unspecified vessel or [...] COPD type (Multi) documented in this encounter [facility] Work Phone: Evaluation note* Diagnosis Onset Date Resolution Status GERD (gastroesophageal reflux disease) acuteHiatal herniaacuteLymphocytic colitisacute [facility] Work Phone: Evaluation note* Diagnosis Atherosclerosis of coronary artery of lime heart without angina pectoris, unspecified vessel or lesion type History of coronary artery bypass graft Postsurgical aortocoronary bypass status Ischemic cardiomyopathy Other specified forms of chronic ischemic heart disease Hyperlipidemia, unspecified hyperlipidemia type Dizziness Dizziness and giddiness documented in this encounter [facility] Work Phone: Evaluation note* Diagnosis Onset Date Resolution Status Change in bowel habits acuteGERD (gastroesophageal reflux disease)acuteHiatal herniaacuteLymphocytic colitisacute [facility] Work Phone: Evaluation note* Diagnosis Atherosclerosis of coronary artery of lime heart without angina pectoris, unspecified vessel or lesion type 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 Postsurgical aortocoronary bypass status Former smoker Personal history of tobacco use, presenting hazards to health BMI 24.0-24.9, adult Ischemic cardiomyopathy Other specified forms of chronic ischemic heart disease Essential hypertension Unspecified essential hypertension Hyperlipidemia, unspecified hyperlipidemia type Dizziness Dizziness and giddiness documented in this encounter [facility] Work Phone: Evaluation note* Diagnosis Capillary angioma- Primary Nevus, non-neoplastic Seborrheic keratosis Actinic keratosis Lentigo simplex Other dyschromia History of basal cell carcinoma (BCC) History of SCC (squamous cell carcinoma) of skin Personal history of other malignant neoplasm of skin Personal history of malignant melanoma of skin Neoplasm of unspecified behavior of bone, soft tissue, and skin [facility] Diagnosis 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)- Primary [facility]* Diagnosis Encounter for removal of sutures- Primary documented in this encounter [facility]* Diagnosis Atherosclerosis of coronary artery of lime heart without angina pectoris, unspecified vessel or [...] unspecified hyperlipidemia type documented in this encounter [facility] Work Phone: Evaluation note* Diagnosis Neuritis- Primary Unspecified neuralgia, neuritis, and radiculitis Neuropathy, idiopathic Other specified idiopathic peripheral neuropathy Left foot pain Pain in soft tissues of limb documented in this encounter [facility]* Diagnosis Seborrheic keratosis- Primary Actinic keratosis Seborrheic keratosis, inflamed Neoplasm of unspecified behavior of bone, soft tissue, and skin History of basal cell carcinoma (BCC) History of SCC (squamous cell carcinoma) of skin Personal history of other malignant neoplasm of skin Lentigines documented in this encounter [facility] HealthcareHistory general Narrative - Reported* Type Description Date Medical History Gout-feet Medical HistoryIncreased cholesterol, mixed hyperlipidemiaMedical History Essential HTN-1989Medical HistoryCAD-1994Medical 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 Nyedical HistoryAsthma (PFT's)-2000Medical History Osteoarthritis Right Shoulder, left hip-2003Medical HistoryChronic renal insufficiency-2004, Dr. De La RosaMedical HistoryCAD, ischemic cardiomyopathy, 2019 cardiac catheterization, ejection fraction 40%Medical Historyallergic rhinitis Medical HistoryHiatal herniaMedical HistoryEsophageal refluxSurgical History Appendectomy at age 12Surgical HistoryCoronary angioplasty- Right coronary artery Dr.Steele SalasMagruder Memorial HospitalTbbnmimec4241Ocbfyssa HistoryCABG (double bypass) 1994Surgical HistoryRight shoulder arthroscopy-Dr. Barros05/2004Surgical History Melanoma excision right cheek-Dr. Sanford05/2008Surgical HistoryCardiac cath, angioplasty, stent Dr. Winslow05/2015Surgical HistoryHeart cath- multiple 100% blockage with 40% heart function06/25/19Surgical HistoryColonoscopy05/07/19 Surgical Historycolonoscopy Hospitalization HistoryCardiolyte stress test - Dr. GalindoFdtjpwy3257Nuxrsaemondgtzu HistoryCardiac stress test (neg) Dr. BlairKvbwuv2894Jmlbvsdlymmxmry HistoryCardiac stress test (neg) Dr. Blair02/2003 Hospitalization HistoryCardiolyte stress test-[place] 02/2007 Hospitalization HistoryExercise myoview stress test (neg) [facility]09/2009 Hospitalization HistoryEGD (neg), colonoscopy-polyp Dr. Shoemaker10/2010 Hospitalization HistoryExercise stress test [facility]04/2014 [employer] Other Hisfmgl general Narrative - Reported* Type Description Date Medical History Gout-feet Medical HistoryIncreased cholesterol, mixed hyperlipidemiaMedical History Essential HTN-1989Medical HistoryCAD-1994Medical 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 Nyedical HistoryAsthma (PFT's)-2000Medical History Osteoarthritis Right Shoulder, left hip-2003Medical HistoryChronic renal insufficiency-2004, Dr. De La RosaMedical HistoryCAD, ischemic cardiomyopathy, 2019 cardiac catheterization, ejection fraction 40%Medical Historyallergic rhinitis Medical HistoryHiatal herniaMedical HistoryEsophageal refluxMedical History Impaired glucose toleranceMedical HistoryVentral hernia without obstruction or gangreneSurgical HistoryAppendectomy at age 12Surgical HistoryCoronary angioplasty- Right coronary artery [facility]1995Surgical HistoryCABG (double bypass)1994Surgical HistoryRight shoulder arthroscopy-Dr. Barros05/2004Surgical HistoryMelanoma excision right cheek-Dr. Sanford05/2008 Surgical HistoryCardiac cath, angioplasty, stent Dr. Winslow05/2015Surgical HistoryHeart cath- multiple 100% blockage with 40% heart function06/25/19Surgical HistoryColonoscopy05/07/19Surgical Historycolonoscopy beerSurgical Historymelanoma removed from vysbwlpf84/2022Hospitalization HistoryCardiolyte stress test - Dr. GalindoFsviozs3719Rbyzuoumlswwzcd HistoryCardiac stress test (neg) Dr. BlairRxkpyi9647Rcjyffqbqnvdemf HistoryCardiac stress test (neg) Dr. Blair02/2003 Hospitalization HistoryCardiolyte stress test-Old [place] 02/2007 Hospitalization HistoryExercise myoview stress test (neg) [facility]09/2009 Hospitalization HistoryEGD (neg), colonoscopy-polyp Dr. Shoemaker10/2010 Hospitalization HistoryExercise stress test [facility]04/2014 [employer] Other History general Narrative - Reported* Type Description Date Medical History Gout-feet Medical HistoryIncreased cholesterol, mixed hyperlipidemiaMedical History Essential HTN-1989Medical HistoryCAD-1994Medical 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 Nyedical HistoryAsthma (PFT's)-2000Medical History Osteoarthritis Right Shoulder, left [...] 12Surgical History Coronary angioplasty- Right coronary artery [facility] 1994Surgical HistoryCABG (double bypass)1994Surgical HistoryRight shoulder arthroscopy-Dr. Barros05/2004Surgical HistoryMelanoma excision right cheek-Dr. Sanford05/2008Surgical HistoryCardiac cath, angioplasty, stent Dr. Winslow05/2015 Surgical HistoryHeart cath- multiple 100% blockage with 40% heart function 06/25/19Surgical HistoryColonoscopy05/07/19Surgical Historycolonoscopy [facility] 06/2020Surgical Historymelanoma removed from dpiqpqlh94/2022Surgical History melanoma removed from back08/2022Hospitalization HistoryCardiolyte stress test - Dr. GalindoOukgrqq9844Vksiayoddfqjktr HistoryCardiac stress test (neg) Dr. Blair2003 Hospitalization HistoryCardiac stress test (neg) Dr. Blair02/2003Hospitalization HistoryCardiolyte stress test-Old [place] 02/2007Hospitalization History Exercise myoview stress test (neg) [facility]09/2009Hospitalization HistoryEGD (neg), colonoscopy-polyp Dr. Shoemaker10/2010Hospitalization HistoryExercise stress test [facility]04/2014 [employer] Other History of Present illness Narrative* The [...] medication regimen. He denies medication side effects. [employer] Work Phone: History of Present illness Narrative* [...] medication regimen. He denies medication side effects. [email or web address] Work Phone: History of Present illness Narrative* [...] medication regimen. He denies medication side effects. -[facility] [address] DO Work Phone: Reugqz for referral (narrative)* Name Reason for referral MAGALY MCKENZIE Dept. of Dermatology Reafve for referral (narrative)* Consultation (Routine) - AuthorizedSpecialtyDiagnoses / ProceduresReferred By ContactReferred To ContactCardiology Diagnoses Atherosclerosis of coronary artery of lime heart without angina pectoris, unspecified vessel or lesion type Ischemic cardiomyopathy CHF (NYHA class II, ACC/AHA stage C) ([facility]) Procedures Follow Up In Cardiology Bud Beatty DO [address] [facility] [address], [place] [address] Yaritza Ortiz, MANAGER [employer] [address] [facility], [place] [address] Referral IDStatusReasonStart DateExpiration DateVisits RequestedVisits [id number]/7/20242/6/[id number] * Imaging (Routine) - Pending ReviewSpecialtyDiagnoses / ProceduresReferred By ContactReferred To ContactRadiology Diagnoses Ischemic cardiomyopathy CHF (NYHA class II, ACC/AHA stage C) ([facility]) Procedures NM heart blood pool ejection fraction wall motion (MUGA) Bud Beatty DO [address] [facility] 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 [address], [facility] [address] [place] [address] Referral IDStatusReasonStart DateExpiration DateVisits RequestedVisits [id number] Review [facility] Work Phone: Reason for referral (narrative)No reason for referral information [facility] Work Phone: Summary Purpose Family History [...] above anatomy with known occlusions of the lime RCA and circumflex, patent LAD and stents [...] events. * He has underlying history of [place] Heart Association class II/C heart failure, COPD, essential hypertension, former smoker, hyperlipidemia, the above-mentioned melanoma with excision, PCI LAD, ischemic cardiomyopathy with improved LV function. 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 Bud Beatty, [address] [place] [address] [address], [place] [phone] Referral IDStatusPage [facility] DateExpiration DateVisits RequestedVisits [id number] [id number] / ProceduresReferred By ContactReferred To ContactCardiology Diagnoses Atherosclerosis of coronary artery of lime heart without angina pectoris, unspecified vessel or lesion type Procedures Follow Up In Cardiology Rogerio, Bud Sonny, [address], [place] [address] Rogerio, Bud Sonny, [address], [place] [address] Referral IDStatBuddyBetRavenden DateExpiration DateVisits RequestedVisits [id number]/21/20245/21/[id number] / Procedures Referred By ContactReferred To ContactRadiology Diagnoses Ischemic cardiomyopathy CHF (NYHA class II, ACC/AHA stage C) (CMS/[facility]) Procedures NM heart blood pool ejection fraction wall motion (MUGA) Rogerio, Bud Sonny, [address], [place] [phone] Referral IDStatMyshaadi.inAltitude CoRavenden DateExpiration DateVisits RequestedVisits [id number] Perform Procedure Chief Complaint and Reason for Visit Chief [...] tear/left arm July 07, 2025 3: 16pm Chief Complaint Admit Date ^ June 01, 2004 6:21 pm skin tear/left arm July 07, 2025 3: 16pm 6 month/fasting labs September 16, 2025 2:02pm Reason for Visit Admit Date Skin fragility July 07, 2025 3: 16pm Skin tear of forearm without complicatio n July 07, 2025 3:16pm Additional Source Comments (unrecognized sect ion and content) No Status Records FoundNo Status Records FoundNo Status Records FoundNo Status Records FoundNo Status Records FoundNo Status Records FoundNo Status Records FoundNo Status Records FoundNo Status Records FoundNo Status Records Found INFORMATION SOURCE (unrecogn ized section and content) DATE CREATED AUTHOR 07/13/2020 [facility] DATE CREATED AUTHOR AUTHOR'S ORGANIZ ATION 12/15/2022 [facility] DATE CREATED AUTHOR AUTHOR'S ORGANIZ ATION 02/13/2023 [facility] DATE CREATED AUTHOR AUTHOR'S ORGANIZ ATION 03/17/2023 [facility] DATE CREATED AUTHOR AUTHOR'S ORGANIZ ATION 09/29/2023 [employer] DATE CREATED AUTHOR AUTHOR'S ORGANIZ ATION 09/03/2024 [facility] DATE CREATED AUTHOR AUTHOR'S ORGANIZ ATION 11/22/2024 [facility] DATE CREATED AUTHOR AUTHOR'S ORGANIZ ATION 05/26/2025 [facility] DATE CREATED AUTHOR AUTHOR'S ORGANIZ ATION 07/18/2025 [facility] DATE CREATED AUTHOR AUTHOR'S ORGANIZ ATION 09/25/2025 [facility] Reason for Visit (unrecogniz ed section and content) ReasonCommentsAnnual ExamSpecialtyDiagnoses / ProceduresReferred By Contact Referred To ContactRadiology Diagnoses Ischemic cardiomyopathy CHF (NYHA class II, ACC/AHA stage C) (CMS/[facility]) Procedures NM heart blood pool ejection fraction wall motion (MUGA) Bud Beatty, DO [address] [place] [id number] Referral IDStatMcCullough-Hyde Memorial [facility] DateExpiration DateVisits RequestedVisits [id number] Perform Procedure [id number]-zh2eLcqqphgblNnwsylklj / Procedures Referred By ContactReferred To ContactCardiology Diagnoses Atherosclerosis of coronary artery of lime heart without angina pectoris, unspecified vessel or lesion type Ischemic cardiomyopathy CHF (NYHA class II, ACC/AHA stage C) ([facility]) Procedures Follow Up In Cardiology Bud Beatty, DO [address] [place] [address] Yaritza Ortiz, MANAGER [employer] [address] [place] [address] Referral IDStatusReAltitude CoRavenden DateExpiration DateVisits RequestedVisits [id number]/7/20242/6/731372LjirimpjwTiimrxizp / Procedures Referred By ContactReferred To ContactCardiology Diagnoses Atherosclerosis of coronary artery of lime heart without angina pectoris, unspecified vessel or lesion type History of coronary artery bypass graft Ischemic cardiomyopathy Hyperlipidemia, unspecified hyperlipidemia type Dizziness Procedures Vascular US Carotid Artery Duplex Bilateral Bud Beatty, DO [address] [facility] [address], [place] [phone] Referral IDStatusReasonStart DateExpiration DateVisits RequestedVisits [id number] Perform Procedure [id number]-mw5 monthsSpecialtyDiagnoses / Procedures Referred By ContactReferred To ContactCardiology Diagnoses Atherosclerosis of coronary artery of lime heart without angina pectoris, unspecified vessel or lesion type Procedures Follow Up In Cardiology Bud Beatty, DO [address] [facility] [address], [place] [phone] Bud Beatty, DO [address] [facility] [address], [place] [phone] Referral IDStatusReasonStart DateExpiration DateVisits RequestedVisits [id number]/21/20245/268267LeppwnBusiimbbEkzw CheckReason CommentsexcisionReasonCommentsFollow-upPatient here for 10 month follow up for coronary artery disease, denies cardiac c/o at this time.SpecialtyDiagnoses / ProceduresReferred By ContactReferred To ContactCardiology Diagnoses Atherosclerosis of coronary artery of lime heart without angina pectoris, unspecified vessel or lesion type Procedures Follow Up In Cardiology Bud Beatty, DO [address] [facility] [address], [place] [phone] Phone: tel: fax: Bud Beatty, DO [address] 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 [place] [address] PCP - [facility]12/20/23Team MemberRelationshipSpecialtyStart DateEnd Date Hayedn Adams DO [address] [address] PCP - [facility]12/20/23Team MemberRelationshipSpecialtyStart DateEnd Date Hayden Adams DO [address] [address] PCP - [facility]12/20/23 Team Status: Active Member Role Status Dates Hayden Adams DO Primary Care Provider Active Team Status: Active Member Role Status Dates Ольга Barros Attending Provider Active Start: June 01, 2004 Team Status: Active Member Role Status Dates Hayden Adams DO Primary Care Provider Active St art: January 17, 2024 Gretchen Soriano ProviderActiveStart: January 17, 2024 Team Status: Inactive [...] 2024Team MemberRelationshipSpecialtyStart DateEnd Date Hayden Adams DO [facility]12/20/23 Team Status: Active Member Role Status Dates Val Beatty DO Specialist Active MICHELLE GarzapecialistActiveKalpesh Hathaway Care ProviderActive Team Status: Inactive Member Role Status Dates Hayden Adams DO Primary Care Provider Active St art: July 31, 2024 End: July 31Lata Clemons ProviderActiveStart: July 31, 2024 End: July 31, 2024Team MemberRelationshipSpecialtyStart DateEnd Date Hayden Adams DO [address] [place] [address] [facility]08/20/24 Team Status: Inactive Member Role Status Dates [...] DateEnd Date Hayden Adams DO PCP - [facility]12/20/23 Team Status: Inactive Member Role Status Dates Hayden Adams DO Primary Care Provider Active St art: February 12, 2025 End: February 12Lata Clemons ProviderActiveStart: February 12, 2025 End: February 12, 2025 Team Status: Active Member Role Status Dates Hayden Adams DO Primary Care Provide r, Attending Provider Active Start: February 19, 2025 Team Status: Inactive Member Role Status Dates Hayden Obtimothy DO Primary Care Provide r, Attending Provider Active Start: March 18, 2025 End: March 18, 2025 Team Status: Active Member Role Status Dates Hayden Adams DO Primary Care Provider Active St art: February 19, 2025 Hayden Adams DOAttending ProviderActiveStart: February 19, 2025 Team Status: Inactive Member Role Status Dates Hayden ObDO timothy Primary Care Provider Active St art: March 18, 2025 End: March 18, 2025Hayden Adams DOAttending ProviderActiveStart: March 18, 2025 End: March 18, 2025 Team Status: Inactive Member Role Status Dates Hayden Adams DO Primary Care Provider Active St art: May 15, 2025 End: May 15Lata Clemons ProviderActiveStart: May 15, 2025 End: May 15, 2025Team MemberRelationshipSpecialtyStart DateEnd Date Hayden Adams DO [address] [place] [address] PCP - [facility]08/20/24 Team Status: Active Member Role Status Dates Hayden Adams DO Primary Care Provider Active St art: May 22, 2025 Lata Garza ProviderActiveStart: May 22, 2025 Team Status: Inactive Member Role Status Dates Hayden Adams DO Primary Care Provider Active St art: June 17, 2025 End: June 17, 2025Hayden Adams DOAttending ProviderActiveStart: June 17, 2025 End: June 17, 2025Team MemberRelationshipSpecialtyStart DateEnd Date Hayden Adams MD [address] [place] [address] PCP - [facility]06/20/25Team MemberRelationshipSpecialtyStart DateEnd Date Hayden Adams MD [address] [facility] [address] PCP - [facility]06/20/25 Team Status: Inactive Member Role Status Dates Hayden Adams DO Primary Care Provider Active St art: July 07, 2025 End: July 07, 2025Hayden Adams DOAttending ProviderActiveStart: July 07, 2025 End: July 07, 2025Team MemberRelationshipSpecialtyStart DateEnd Date Hayden Adams MD [address] [facility] [place] [address] [facility] - [facility]06/20/25Team MemberRelationshipSpecialtyStart DateEnd Date Hayden Adams MD [address] [facility] [place] [address] PCP - [facility]06/20/25 Team Status: Active Member Role/Relationship Status Dates Val Beatty DO Specialist Active MICHELLE GarzapecialistActiveKalpesh Hathaway Care ProviderActive Team Status: Active Member Role/Relationship Status Dates Ольга Barros Attending Provider Active Start: June 01, 2004 Team Status: Inactive Member Role/Relationship Status Dates Hayden Adams DO Primary Care Provider Active St art: July 07, 2025 End: July 07, 2025Karl Oberer , DOAttending ProviderActiveStart: July 07, 2025 End: July 07, 2025 Team Status: Active Member Role/Relationship Status Dates Hayden Adams DO Primary Care Provider Active St art: September 02, 2025 Janette Hathaway ProviderActiveStart: September 02, 2025 Team Status: Inactive Member Role/Relationship Status Dates Hayden Adams DO Primary Care Provider Active St art: September 16, 2025 End: September 16, 2025Janette Hathaway ProviderActiveStart: September 16, 2025 End: September 16, 2025 Goals (unrecognized section and content) Goals may [...] BE BASED ON THE PRIMARY CLINICAL RECORDS. [facility]. provides no warranty or guarantee of the accuracy or completeness [phone] in this [id number]
[2025-09-29 16:51] LABS: Prostate Specific Antigen Dx 34.76 ng/mL (<=4.00)
== END 2025-09-29 15:32 | disposition home or self-care (01) ==
LOC: LAB 15:32
PROVIDERS: PCP Family Medicine; Visit Provider Urology
DX: R97.20 Elevated prostate specific antigen [PSA] (principal)
CPT/HCPCS: 36415; 84153